=== PATIENT | male | born 1990 | race Caucasian/White ===

== ENCOUNTER 2023-03-01 18:30 | Emergency (ER) | payer BC, SELFPAY ==
[2023-03-01 18:34] VITALS: PULSE 100; RESP 16; TEMP 36.8; O2SAT 96; BMI 28.2
--- NOTE | 2023-03-01 18:48 | PC.NURSE ---
Patient reports contact lens stuck in right eye, no drainage at this time, sclera slightly red.
[2023-03-01] MEDS: FLUORESCEIN SODIUM 1 MG STRIP OP (18:50)
[2023-03-01] MEDS: TETRACAINE HCL 0.5% OP SOL 80 DROP/4 ML BOTTLE OP (18:51)
--- NOTE | 2023-03-01 19:35 | ED_ITS ---
HPI - Eye Problem General Chief complaint: Eye Problems Stated complaint: Foreign in EYE Time Seen by Provider: 03/01/23 18:35 Source: patient Mode of arrival: walk-in Limitations: no limitations History of Present Illness HPI Narrative: Patient fell asleep with his contact lens in and when he woke he had pain in his right eye. No loss of vision. He tried to remove the lens and could not. he soaked the eye with refresh solution - still could not remove the lens. he believes that the contact lens is still on the right eye and is concerned about eye damage or infection. He has no local PCP and he uses [facility] for his contacts. Related Data Allergies Allergy/AdvReac Type Severity Reaction Status Date / Time No Known Drug Allergies Allergy Verified 03/01/23 18:37 PFSH PFS Social History Smoking status: Never smoker Exam Narrative Exam Narrative: General: The patient appears well and in no apparent distress. Patient is resting comfortably on cart. Skin: Warm, dry, no pallor noted. Head: Normocephalic, atraumatic Neck: Supple, trachea mid-line, no tenderness, no lymphadenopathy Eye: Normal extraocular motion without associated pain. Pupils equal, round and reactive to light. Conjunctival injection noted. No swelling of the upper/lower eyelid. Patient's upper eyelid was everted - no evidence of foreign body. I am unable to see a contact lens on the eye, in the gutters or underneath the upper or lower eyelid. The patient had ALCAINE/TETRACAINE applied to the right eye with fluorescein dye instilled afterward. Exam with Wood's lamp showed no uptake at the cornea and no outline to suggest lens still in place. No evidence of hyphema, dendritic lesion, corneal ulcerations, preseptal cellulitis or orbital cellulitis. Ears, Nose, Mouth, and Throat: oral mucosa is moist Respiratory: Patient is in no distress Neurological: A&O x4, normal speech Psychiatric: Cooperative and interactive. Constitutional Vital Signs, click to edit/add: Last Vital Signs Temp 98.3 F 03/01/23 18:34 Pulse 80 03/01/23 19:47 Resp 15 03/01/23 19:47 BP 140/88 03/01/23 19:47 Pulse Ox 98 03/01/23 19:47 O2 Del Method Room Air 03/01/23 19:47 Course Vital Signs Vital signs: Vital Signs Temperature 98.3 F 03/01/23 18:34 Pulse Rate 100 H 03/01/23 18:34 Respiratory Rate 16 03/01/23 18:34 Pulse Oximetry 96 03/01/23 18:34 Oxygen Delivery Method Room Air 03/01/23 18:34 Temperature 98.3 F 03/01/23 18:34 Pulse Rate 80 03/01/23 19:47 Respiratory Rate 15 03/01/23 19:47 Blood Pressure 140/88 03/01/23 19:47 Pulse Oximetry 98 03/01/23 19:47 Oxygen Delivery Method Room Air 03/01/23 19:47 MDM - Eye Problem MDM Narrative Medical decision making narrative: I spoke with Dr Rm - ophtho communications marketing [place] [facility] [place]formed of the patient's case and lack of ophtho followup - concern about contact lens still being in place. He agreed to have the patient come to his office tomorrow at 830am to be seen - told me no need for antibiotics or steroids in the eye. Patient informed and is agreeable - will see Dr Rm tomorrow for follow up Discharge Plan Discharge Chief Complaint: Eye Problems Clinical Impression: Contact lens related conjunctivitis Patient Disposition: Home, Self-Care Time of Disposition Decision: 19:36 Condition: Good Mode of Transportation: Private Vehicle Instructions: Eye Lubricant (Into the eye), Eye Foreign Body (ED) Stand Alone Forms: Portal Instructions Referrals: Juan Daniel Gilman MD [Physician] - 03/02/23 8:30 am Discharge Date/Time: 03/01/23 19:49
[2023-03-01 19:47] VITALS: BP 140/88; PULSE 80; RESP 15; O2SAT 98
== END 2023-03-01 19:49 | disposition home or self-care (01) ==
PROVIDERS: Emergency Provider Emergency Medicine; PCP Family Medicine
DX: H10.89 Other conjunctivitis (principal)
CPT/HCPCS: 99283

== ENCOUNTER 2023-04-27 11:25 | Outpatient (OUT) | payer BC, SELFPAY ==
[2023-04-27 12:25] LABS: Basophils Absolute Auto 0.1 10^3/uL (0.0-0.1); Basophils Percent Auto 1.4 % (0.2-2.0); Eosinophils Absolute Auto 0.1 10^3/uL (0.0-0.7); Eosinophils Percent Auto 1.4 % (0.9-7.0); Hematocrit 42.3 % (42.0-54.0); Hemoglobin 13.7 g/dL (14.0-18.0); Immature Granulocytes Abs Auto 0.03 10^3/uL (0.00-0.03); Immature Granulocytes Pct Auto 0.3 % (0.0-0.5); Lymphocytes Absolute Auto 2.8 10^3/uL (1.2-3.8); Lymphocytes Percent Auto 29.8 % (20.5-60.0); Mean Corpuscular HGB Conc 32.4 g/dL (29.9-35.2); Mean Corpuscular Hemoglobin 28.8 pg (25.9-34.0); Mean Corpuscular Volume 89.1 fL (80.0-94.0); Mean Platelet Volume 9.3 fL (9.5-13.5); Monocytes Absolute Auto 0.7 10^3/uL (0.3-0.8); Monocytes Percent Auto 7.3 % (1.7-12.0); Neutrophils Absolute Auto 5.6 10^3/uL (1.4-6.5); Neutrophils Percent Auto 59.8 % (43.0-75.0); Platelet Count 360 10^3/uL (150-450); Red Blood Count 4.75 10^6/uL (4.70-6.10); Red Cell Distribution Width 13.8 % (11.0-15.0); White Blood Count 9.3 10^3/uL (4.0-11.0)
== END 2023-04-27 11:26 | disposition home or self-care (01) ==
LOC: LAB 11:28
PROVIDERS: PCP Family Medicine; Visit Provider Nurse Practitioner Family
DX: D64.9 Anemia, unspecified (principal); S36.892A Contusion of other intra-abdominal organs, initial encounter
CPT/HCPCS: 36415; 85025

== ENCOUNTER 2023-05-10 09:45 | Outpatient (OUT) | payer OTHER, SELFPAY ==
--- NOTE | 2023-05-10 09:47 | XR_ITS ---
The [address] [address] Patient Name: EDUARDA WILLIAMSON MRN: [id number] date: 1990 Sex: M Assigned Patient Location: RAD Current Patient Location: RAD Accession/Order Number: [id number] Exam Date: 05/10/2023 10:15 Report Date: 05/10/2023 14:29 At the request of: RKAAN VALENTIN Procedure: XR ankle RT min 3V PROCEDURE: XR ankle RT min 3V COMPARISON: None. HISTORY: Ankle Pain, 30 Foot Fall Trauma FINDINGS: BONES:No fracture, acute abnormality, or significant arthropathy. SOFT TISSUES:Negative. No visible soft tissue swelling. EFFUSION:None visible. OTHER: Negative. XR/XR ankle RT min 3V IMPRESSION: No acute fracture Electronically authenticated by: VINICIUS GARCIA Date: 05/10/2023 14:29
--- NOTE | 2023-05-10 09:47 | XR_ITS ---
The [address] [address] Patient Name: EDUARDA WILLIAMSON MRN: [id number] date: 1990 Sex: M Assigned Patient Location: RAD Current Patient Location: [facility] Accession/Order Number: [id number] Exam Date: 05/10/2023 10:15 Report Date: 05/10/2023 10:55 At the request of: RAKAN VALENTIN Procedure: XR hip FELIX EXAMINATION: XR hip FELIX HISTORY: Hip Pain, 30 Foot Fall Trauma COMPARISON: No relevant comparison available. FINDINGS: RIGHT FINDINGS: BONES: Normal. No significant arthropathy or acute abnormality. SOFT TISSUES: Negative. No visible soft tissue swelling. OTHER: Negative. LEFT FINDINGS: BONES: Normal. No significant arthropathy or acute abnormality. SOFT TISSUES: Negative. No visible soft tissue swelling. OTHER: Negative. XR/XR hip FELIX IMPRESSION: RIGHT CONCLUSION: No acute abnormality LEFT CONCLUSION: No acute abnormality Electronically authenticated by: VINICIUS GARCIA Date: 05/10/2023 10:55
--- OUTSIDE RECORDS SUMMARY | 2023-05-10 10:06 | XMS_ITS | CCD ---
Author Name Unknown Address [address] [place] [address] Organization [facility] Care Team Providers Care Power System Operator Name Role Phone BOBY SOMMERS Attending Unavailable DO Leonides Walker Emergency Provider [phone] MD Tito Whitney Primary Care Provider [phone] Unavailable Primary Care Provider Unavailabl e Leonides Walker Attending Unavailable Leonides Walker Admitting Unavailable Tito Whitney Primary Care Unavailable PROVIDER, UNKNOWN Admitting Unavailable PROVIDER, UNKNOWN Attending Unavailable PROVIDER, UNKNOWN Admitting Unavailable PROVIDER, UNKNOWN Attending Unavailable PROVIDER, UNKNOWN Admitting Unavailable CARMELA GUEVARA Referring Unavailable LAURA VICTORIA Attending Unavailable PROVIDER, UNKNOWN Admitting Unavailable CARMELA GUEVARA Attending Unavailable PROVIDER, UNKNOWN Attending Unavailable MARLEY PETERSON Referring Unavailable YING HOLT Admitting Unavailable ISMAEL, CARMELA Referring Unavailable CARMELA GUEVARA Attending Unavailable ISMAEL, CARMELA Admitting Unavailable PROVIDER, UNKNOWN Attending Unavailable NORMA GUEVARAENNE Admitting Unavailable PROVIDER, UNKNOWN Attending Unavailable ISMAEL CARMELA Admitting Unavailable PROVIDER, UNKNOWN Admitting Unavailable PROVIDER, UNKNOWN Attending Unavailable JILLIAN READ Referring Unavailable PROVIDER, UNKNOWN Admitting Unavailable PROVIDER, UNKNOWN Attending Unavailable MARLEY PETERSON Referring Unavailable PROVIDER, UNKNOWN Admitting Unavailable JARROD CHANDLER Attending Unavailable MARLEY PETERSON Referring Unavailable Medications Current Medications Medication Drug Class(es) Dates Sig (Normalized) Sig (Original) acetaminophen 325 mg oral tablet (5 sources) Start: 04-14-2023 End: 04-14-2023 acetaminophen (TYLENOL) tablet Start: 04-08-2023 End: 04-25-2023 take 1-2 tablets by mouth every six hours as needed acetaminophen (TYLENOL) 500 MG tablet Take 1-2 Tablets by mouth every 6 hours as needed for up to 14 days. 112 Tablet 0 04/11/2023 04/25/2023 Active albuterol 0.83 mg/ml inhalation solution (2 sources) beta2-Adrenergic Agonist Start: 04-14-2023 End: 04-14-2023 albuterol (PROVENTIL) (2.5 MG/3ML) 0.083% nebulizer solution Start: 04-09-2023 albuterol (PRO VENTIL) (2.5 MG/3ML) 0.083% nebulizer solution calcium chloride 0.0014 meq/ ml / potassium chloride 0.004 meq/ml / sodium chloride 0.103 meq/ml / sodium lactate 0.028 meq/ml injectable solution (3 sources) Start: 04-14-2023 lactated ringe rs iv infusion Start: 04-08-2023 End: 04-09-2023 lactated ringers iv infusion 0.4 ml enoxaparin sodium 100 mg/ml prefilled syringe (1 source) Low Molecular Weight Heparin Start: 04-09-2023 enoxaparin (LOVENOX) 40 MG/0.4ML injection 40 mg 2 ml fentaNYL 0.05 mg/ml injection (1 source) Opioid Agonist Start: 04-14-2023 End: 04-14-2023 fentaNYL (SUBLIMAZE) 100 MCG/2ML injection 1 ml naloxone hydrochloride 0.4 mg/ml injection (2 sources) Opioid Antagonist Start: 04-14-2023 naloxone (NA RCAN) 0.4 MG/ML injection polyethylene glycol 3350 65701 mg powder for oral solution (1 source) Osmotic Laxative Start: 04-09-2023 polyethylene glycol (MIRALAX) 17 g packet sennoSharp Edge Labss, assisted 8.6 mg oral tablet (4 sources) Start: 04-09-2023 End: 05-11-2023 take 1 tablet by mouth once daily senna (SENOKOT) 8.6 MG tablet Take 1 Tablet by mouth daily. To prevent/treat constipation while taking opioids. Hold if having bowel movements. 30 Tablet 0 04/11/2023 05/11/2023 Active Completed/Discontinued Medications Medication Drug Class(es) Dates Sig (Normalized) Sig (Original) acetaminophen 325 mg / oxyCODONE hydrochloride 5 mg oral tablet (2 sources) Opioid Agonist Start: 04-14-2023 End: 04-14-2023 oxyCODONE-acetamin ophen (PERCOCET) 5-325 mg per tablet Start: 04-14-2023 End: 04-21-2023 take 1 tablet by mouth every six hours as needed for pain oxyCODONE-acetaminophen (Percocet) 5-325 mg per tablet Indications: Post-op pain Take 1 Tablet by mouth every 6 hours as needed for Pain for up to 7 days. 28 Tablet 0 04/14/2023 04/21/2023 Active 1 ml HYDROmorphone hydrochloride 0.2 mg/ml prefilled syringe (1 source) Opioid Agonist Start: 04-09-2023 End: 04-09-2023 HYDROmorphone (DILAUDID) 0.2 MG/ML injection 0.4 mg Start: 04-09-2023 End: 04-09-2023 HYDROmorphone (DILAUDID) 0.2 MG/ML injection 0.4 mg iohexol (OMNIPAQUE) 350 MG/ML injection (1 source) Start: 04-08-2023 End: 04-08-2023 iohexol (OMNIPAQUE) 350 MG/ML injection oxyCODONE hydrochloride 5 mg oral tablet (4 sources) Opioid Agonist Start: 04-11-2023 End: 04-14-2023 take 1 tablet by mouth every six hours as needed oxyCODONE 5 MG immediate release tablet Indications: Closed fracture of shaft of left radius, unspecified fracture morphology, initial encounter Take 1 Tablet by mouth every 6 hours as needed for up to 3 days. 12 Tablet 0 04/11/2023 04/14/2023 Discontinued Start: 04-10-2023 oxyCODONE imme diate release tablet povidone-iodine 100 mg/ml medicated pad (1 source) Antiseptic Start: 04-14-2023 End: 04-14-2023 povidone-iodine 10 % swab Start: 04-14-2023 End: 04-14-2023 povidone-iodine 10 % swab Problems Problem Classification Problem Date Documented Date Episodic/Chronic Cardiac dysrhythmias (1 source) Tachycardia; Translations: [Tachycardia, unspecified] 04-10-2023 Episodic Crushing injury or internal injury (13 sources) Injury of superior mesenteric artery; Translations: [Unspecified injury of superior mesenteric artery, initial encounter] Onset: 04-08-2023 04-08-2023 Episodic E Codes: Fall (6 sources) Fall; Translations: [Unspecified fall, initial encounter] Onset: 04-10-2023 04-08-2023 Episodic Fracture of upper limb (9 sources) Fracture of left radius; Translations: [Unspecified fracture of left forearm, initial encounter for closed fracture] Onset: 04-08-2023 04-08-2023 Episodic Other aftercare (1 source) Encounter for other specified surgical aftercare; Translations: [Encounter for other specified surgical aftercare] Onset: 04-27-2023 Episodic Other nervous system disorders (1 source) Postoperative pain ; Translations: [Other acute postprocedural pain] 04-14-2023 Episodic Other screening for suspected conditions (not mental disorders or infectious disease) (1 source) Electrocardiogram abnormal; Translations: [Abnormal electrocardiogram [ECG] [EKG]] 04-10-2023 Episodic Pleurisy; pneumothorax; pulmonary collapse (1 source) Pneumothorax; Translations: [Pneumothorax, unspecified] 04-08-2023 Episodic Unclassified (1 source) Displaced transverse fracture of shaft of left radius, initial encounter for closed fracture; Translations: [Displaced transverse fracture of shaft of left radius, initial encounter for closed fracture] Onset: 04-08-2023 Results Test Name Value Interpretation Reference Range Facility Progress Noteson 04-29-2023 [employer] Build[employer] Laminator Authentication Interface Message Text Patient was identified by name and date of . Kristi Mercedes RN, RN Patient at risk for falls:No Falls Risk protocol implemented: No Normal [facility] [employer] Laminator Authentication Interface Message Text I am seeing Mr Williamson today for routine trauma follow up. He was admitted on 04/08 after a fall from a ladder. Injuries included left radius fracture, small right apical pneumothorax and mesenteric hematoma. [facility] His injuries were treated non-operatively. He was discharged on 04/11. He is doing well. He denies any fevers or chills. No pain. He is tolerating PO well. He is having normal bowel function without blood. There were no vitals filed for this visit. NAD, comfortable Abd soft, nontender 32 year old male 3 weeks s/p fall with mesenteric hematoma. He is doing well following discharge. No activity restrictions from our standpoint, ortho to manage left radius fracture Can return to work when cleared by occupational medicine Labs from [place] reviewed, very mild anemia,. Improved from last lab work here No further follow up with trauma is needed Tyshawn Ibarra MD Normal [facility] Progress Noteson 04-28-2023 [employer] Authentication Interface Message Text [facility] Post-operative Notes Surgery(s) performed: Left radial shaft fracture DOS:04/14/2023 Post Op 2weeks Subjective: Well minimal pain or need to take narcotic medications Some n/t to thumb and ulnar 2 digits Objective: LEft forearm Wound: volar wound healing well Edema: resolving Motion: full flexion/extension Limited forearm supination 3/5 FPL; 5/5 FDP/FDS Sensory: index and middle intact to LT; decreased to thumb Radiograph findings: Interval reduction and fixation radial shaft , reduced DRUJ No sig interval healing but intact hardware without loosening Assessment:(Z48.89) Aftercare following surgery (primary encounter diagnosis) Plan: XR FOREARM LEFT 2 VIEWS, OCCUP [id number]/TREAT SERVICE RQST, EXTERNAL - start ROM and volar resting splint SERVICE REQUEST FOR CARE OUTSIDE THE [employer] [facility]-14 light duty x 12 weeks post op X-rays on follow up: yes, L forearm Follow up: 6 weeks Carmela Guevara MD Hand and Upper Extremity Surgeon 04/28/23 Normal [facility] Progress Noteson 04-27-2023 [employer] Authentication Interface Message Text Patient was identified by name and date of .Removed left short arm splint without incident patient sent to x-ray. Normal [facility] XR FOREARM LEFT 2 VIEWSon XR FOREARM LEFT 2 VIEWS EXAMINATION: XR FOREARM LEFT 2 VIEWSPRO/LT 04/27/2023 02:16 PM CLINICAL HISTORY: fx ASSOCIATED DIAGNOSIS: Aftercare following surgery ORDERING PROVIDER: JILLIAN READ TECHNBEE NOTE: COMPARISON: XR FOREARM LEFT 2 VIEWS 04/10/2023, 12:10 AM FINDINGS: There is orthopedic hardware -- screw plate device and screws -- providing internal fixation for previously noted mid radial shaft fracture. No bony bridging The overall alignment appears essentially anatomic given technical differences. IMPRESSION: [Status post ORIF with alignment grossly maintained and hardware intact.] Left forearm MACRO: None Normal [facility] Anesthesia Acute Painon 02- [employer] Authentication Interface Message Text Teaching Physician Note: I saw and evaluated the patient. I personally obtained the ortez and critical portions of the history and physical exam. I reviewed the resident's documentation and discussed the patient with the resident. I agree with the resident's medical decision making as documented in the resident's note. Laura Solano MD Acute Pain Note and Procedure Patient: Eduarda Williamson, male, 32 year old Consult Date: 04/14/2023 ; Consult Time: 3:58 PM My advice has been requested by: Patient is: outpatient Reason for Consultation/Chief Complaint: Acute Pain History of Present Illness: 32 year old male with past medical history as noted below, s/p Left Radius ORIF complaining of acute post-operative pain not controlled by IV narcotics requiring additional post-operative pain control. Pain is sharp, constant and located in the LUE. Pain Score: 10/10 Previous Pain Interventions/Medications: IV narcotics Review of Systems: Pulmonary: Traumatic PTX since resolved per last imaging Cardio-vascular: Negative Musculoskeletal: LUE motor and sensory grossly intact. Endocrine: Negative Hematologic: Negative There is no previous medical history on file. No past medical history on file. There is no previous surgical history on file. No family history on file. Social History Socioeconomic History Marital status: Single has no history on file for drug use. Current Facility-Administered Medications Medication Dose Route Frequency Last Rate Last Admin lactated ringers iv infusion Intravenous Continuous fentaNYL (SUBLIMAZE) 100 MCG/2ML injection 50 mcg Intravenous Push PACU once PRN oxyCODONE-acetaminophen (PERCOCET) 5-325 mg per tablet 1 Tablet Oral PRN acetaminophen (TYLENOL) tablet 650 mg Oral PACU once PRN naloxone (NARCAN) 0.4 MG/ML injection 0.4 mg Intravenous Push PRN albuterol (PROVENTIL) (2.5 MG/3ML) 0.083% nebulizer solution 2.5 mg Nebulization PACU once PRN naloxone (NARCAN) 0.4 MG/ML injection 0.4 mg Intravenous Push PRN lactated ringers iv infusion Intravenous Continuous Vital Signs: See PACU Vitals Physical Examination: Pulmonary: Chest clear to auscultation bilaterally Cardiovascular: RRR with S1S2 and No murmurs, gallops, or rubs Neurologic: Awake, alert, oriented, No motor deficits and Sensation grossly intact Extremities: LUE in dressing otherwise no gross or obvious abnormalities Laboratory Tests: CBC (last 3 years, up to 5 values) (Last 5 results in the past 3 years) WBC RBC Hgb Hct MCV RDW Plt 04/11/23 0018 8.9 3.90 11.3 33.8 87 14.0 201 04/10/23 0211 9.8 4.00 11.8 35.3 88 13.9 185 04/09/23 1121 10.8 4.31 12.5 37.7 87 14.1 198 04/09/23 0521 11.6 4.37 12.7 38.2 88 14.3 208 04/08/23 1712 22.5 4.93 14.1 43.3 88 14.2 245 Basic Metabolic Panel Na K Cl CO2 Gap Glu BUN Cr Ca 04/10/23 0211 137 Comment: Note updated reference ranges. 4.1 Comment: Note updated reference ranges. Note updated reference ranges. 102 Comment: Note updated reference ranges. 26 Comment: Note updated reference ranges. 13 87 13 Comment: Note updated reference ranges. 0.85 Comment: Note updated reference ranges. 8.9 Comment: Note updated reference ranges. 04/09/23 0521 139 Comment: Note updated reference ranges. 4.3 Comment: Note updated reference ranges. Note updated reference ranges. 106 Comment: Note updated reference ranges. 25 Comment: Note updated reference ranges. 12 103 14 Comment: Note updated reference ranges. 0.82 Comment: Note updated reference ranges. 8.8 Comment: Note updated reference ranges. 04/08/23 1712 141 Comment: Note updated reference ranges. 3.9 Comment: Note updated reference ranges. Note updated reference ranges. 106 Comment: Note updated reference ranges. 26 Comment: Note updated reference ranges. 13 106 14 Comment: Note updated reference ranges. 0.86 Comment: Note updated reference ranges. 9.4 Comment: Note updated reference ranges. INR (no units) Date Value 04/08/2023 0.94 Impression: 32 year old male with past medical history as noted above, s/p Left radius ORIF complaining of acute post-operative pain not controlled by IV narcotics requiring additional post-operative pain control. Plan/Recommendation: Left brachial nerve block at the level of the Axilla with ultrasound guidance Acute pain Keyshawn Lopez MD Manager [employer], PGY-4 Normal [facility] [employer] [facility] Anesthesia Postprocedure Rajni monsivais 04-14-2023 [employer] Laminator Authentication Interface Message Text Anesthesia Postoperative Assessment: Vital Signs (@1625): BP 129/82 (BP Location: right arm) Pulse 88 Temp 36.5 ???C (97.7 ???F) (Temporal) Resp 16 Ht 6' 2 (1.88 m) Wt 229 lb (103.9 kg) SpO2 100% BMI 29.40 kg/m??? Anesthesia Post Evaluation Level of consciousness: awake Post-procedure exam normal. Body temperature, hydration status, PONV and pain evaluated and addressed. Pain management: adequate Hydration status: normal PONV:No nausea/vomiting reported Cardiopulmonary status stable Respiratory status: acceptable Cardiovascular status: acceptable ANESTHESIA NOTABLE EVENTS: No notable events documented. Normal [facility] Anesthesia Transfer Of Careo n 04-14-2023 [employer] Laminator Authentication Interface Message Text Patient taken to PACU. Patient was comfortable and stable on arrival. Anesthesia Transfer of Care Note Past Medical History: No past medical history on file. Sleep Apnea/Positive STOP-BANG: Yes Problem List: Patient Active Problem List: Mesenteric hematoma, initial encounter [S36.892A] Mesenteric hematoma [S36.892A] Closed fracture of shaft of left radius [S52.302A] Fall from ladder [W11.XXXA] Past Surgical History: There is no previous surgical history on file. Allergies: Patient has no known allergies. Basic Operating Room Facts: Surgeon(s): Carmela Guevara MD Anesthesiologist: Laura Solano MD ITEM REPAIR MANAGER: Coreen Morris APRN-MODESTA Tram Inspector: Keyshawn Lopez MD REDUCTION, OPEN, RADIUS (Left: Arm Lower) Intraoperative Events: No acute event ASA: 2 EBL: Not documented Urine Not documented Lactated Ringers and NaCl 0.9%: Fluid Totals (Filter: LR and NaCl 0.9% Medications Shown) Medication Calculated Total Lactated Ringers 0 mL / 1 bag Cell Saver: Not documented Blood Volume Values: Blood Products None MTP Blood: MTP PRBC: Not documented MTP FFP: Not documented MTP PLT: Not documented MTP Cryo: Not documented MTP Whole Blood: Not documented Current Vasoactive Medications: {Vasoactive Medications: None Lines, Drains, Airways Peripheral IV Access: 04/14/23 1237 22 gauge Right Antecubital (Active) Site Assessment WNL;Dressing intact 04/14/23 1312 Infusion Status Port #1 Infusing;Patent 04/14/23 1312 Airway Adjunct: Nasal Trumpet 34 (Active) Airway Insertion Details [REMOVED] Advanced Airway: LMA;Cuffed #5 (Removed) 04/14/23 1317 Pre-Oxygenation/ Induction: Mask Rapid Sequence Induction?: Mask Ventilation: Blade Type: Blade Size: Visualization: Airway Type: LMA;Cuffed Airway Size: #5 Post Insertion Assessment: Confirmation: Equal bilateral breath sounds, CO2 confirmed # Attempts >1: Special Equipment: Present on Admission?: Previously Removed / Not Present: Removal Reason: Not Removed at Discharge: Removed 04/14/23 1521 Secured via: Taped 04/14/23 131 Site Assessment WNL 04/14/23 131 All non-working IVs have been removed: N/A Laboratory Data: CBC (last 3 years, up to 5 values) (Last 5 results in the past 3 years) WBC RBC Hgb Hct MCV RDW Plt 04/11/23 0018 8.9 3.90 11.3 33.8 87 14.0 201 04/10/23 0211 9.8 4.00 11.8 35.3 88 13.9 185 04/09/23 1121 10.8 4.31 12.5 37.7 87 14.1 198 04/09/23 0521 11.6 4.37 12.7 38.2 88 14.3 208 04/08/23 1712 22.5 4.93 14.1 43.3 88 14.2 245 Basic Metabolic Panel Na K Cl CO2 Gap Glu BUN Cr Ca 04/10/23 0211 137 Comment: Note updated reference ranges. 4.1 Comment: Note updated reference ranges. Note updated reference ranges. 102 Comment: Note updated reference ranges. 26 Comment: Note updated reference ranges. 13 87 13 Comment: Note updated reference ranges. 0.85 Comment: Note updated reference ranges. 8.9 Comment: Note updated reference ranges. 04/09/23 0521 139 Comment: Note updated reference ranges. 4.3 Comment: Note updated reference ranges. Note updated reference ranges. 106 Comment: Note updated reference ranges. 25 Comment: Note updated reference ranges. 12 103 14 Comment: Note updated reference ranges. 0.82 Comment: Note updated reference ranges. 8.8 Comment: Note updated reference ranges. 04/08/23 1712 141 Comment: Note updated reference ranges. 3.9 Comment: Note updated reference ranges. Note updated reference ranges. 106 Comment: Note updated reference ranges. 26 Comment: Note updated reference ranges. 13 106 14 Comment: Note updated reference ranges. 0.86 Comment: Note updated reference ranges. 9.4 Comment: Note updated reference ranges. Basic Metabolic Panel None INR (no units) Date Value 04/08/2023 0.94 No result for BNP LFT's (last 3 years, up to 5 values) T Prot Albumin D Bili T Bili Alk Phos ALT AST 04/08/232 6.6 4.3 0.08 0.4 68 70 49 Arterial Blood Gases None Hand off Completed: Yes 1. The patient was identified. 2. Pertinent medical history was relayed. 3. A brief discussion was had about any pertinent surgical/ procedural issues. 4. Intraoperative/ anesthetic management issue and concerns were discussed. 5. Plans for the early post-operative period relayed. 6. An opportunity for questions and acknowledgment of understanding of the report was received. Keyshawn Lopez MD Normal [facility] Blood Attestationon 04-14-19 [employer] Authentication Interface Message Text Blood Attestation: ATTESTATION OF INFORMED CONSENT FOR BLOOD: The transfusion of blood and/or blood components were discussed with the patient and/or legal franchise sales representative. The risks, benefits and alternatives were reviewed. Questions regarding blood transfusions were answered. The patient /or the patient's legal franchise sales representative agree with the plan for transfusion of blood and/or blood components. Normal [facility] Brief Operative Noteon 04-14 [employer] Authentication Interface Message Text Brief Operative Note BV OR 3 Eduarda Williamson 32 year old male Surgical Contact Serial Number: [id number] Preoperative Diagnosis: Pre-op Diagnosis * Closed displaced comminuted fracture of shaft of left radius, initial encounter [S52.352A] Postoperative Diagnosis: * Closed displaced comminuted fracture of shaft of left radius, initial encounter [S52.352A] Procedures: LEFT radial shaft open reduction internal fixation Surgeon(s): Surgeon(s): Carmela Guevara MD Staff: Scrub: Nathaly Gonzalez RN Research Food Technologist Nurse: Lesvia Knight RN; Sandy Yuen RN; Bang Rao RN Physician Powder Mill Operator: Jillian Read PA-C Commercial Helicopter Pilot: Boy Weir MD Anesthesia: LMA; local Anesthesiologist: Laura Solano MD ITEM REPAIR MANAGER: Coreen Morris APRN-CRNA Tram Inspector: Keyshawn Lopez MD Specimen(s): * No specimens in log * Estimated Blood Loss: less than 5 cc Lines/Drains: Peripheral IV Access: 04/14/23 1237 22 gauge Right Antecubital (Active) Site Assessment WNL;Dressing intact 04/14/23 1312 Infusion Status Port #1 Infusing;Patent 04/14/23 1312 Temporarily Retained Foreign Object: No Findings: See operative report Complications: None Status at end of surgery: Stable Activity: Continued light duty including no pushing/pulling/lifting over 5 lbs Splint to remain on until follow up Surgical wound class: No wound. Patient Class: Outpatient Surgery. Is this a patient scheduled as an outpatient that needs to be admitted as an inpatient? No Dr. Guevara was present in the OR for the critical portion of the procedure and procedure sign-out. Signed by Jillian Read PA-C 04/14/2023 3:32 PM Normal [facility] OP Noteon 04-14-2023 [employer] Authentication Interface Message Text Eduarda Williamson [id number] 04/14/2023 Date of Surgery: 04/14/2023 PREOPERATIVE DIAGNOSIS: leftforearm radial shaft fracture POSTOPERATIVE DIAGNOSIS: Same. PROCEDURE:LEFT FOREARM open treatment radial shaft fracture with internal fixation Use and interpretation of operating fluoroscopy: Yes ATTENDING SURGEON: Carmela Guevara M.D. STAFF: Scrub: Nathaly Gonzalez RN Research Food Technologist Nurse: Lesvia Knight RN; Sandy Yuen RN; Bang Rao RN Physician Powder Mill Operator: Jillian Read PA-C Commercial Helicopter Pilot: Boy Weir MD ANESTHESIA: Consult IV FLUIDS AND URINE: See anesthesia. ESTIMATED BLOOD LOSS: 1 mL. DRAINS: None. SPECIMENS: None. COMPLICATIONS: None. IMPLANTS: Implant Name Type Inv. Item Serial No. Gas Meter Installer Lot No. LRB No. Used Action PLATE 9 HOLE FOREARM [id number] - [id number] PLATE 9 HOLE FOREARM [id number] Nanette Left 1 Implanted 3.5 X 16 SCREW [id number] - [id number] Screw 3.5 X 16 SCREW [id number] Nanette Left 6 Implanted INDICATIONS: Patient suffered a displaced both bone forearm fracture and was evaluated in our ED. Closed reduction and splinting was performed. Due to the fracture displacement and instability, surgery was recommended. Both options of non operative and operative management were discussed. All risks and benefits of operative fixation which include but are not limited to bleeding, infection, stiffness, loss of motion, neurovascular injury were reviewed with the patient as well as expected course of recovery. All questions were answered prior to obtaining informed consent. DESCRIPTION OF PROCEDURE: Patient was seen and identified in the PreOperative area, consent reviewed, procedure confirmed and operative site marked. The patient was brought to the operating room and remained supine on the operative cart. The patient had the anesthesia placed by the anesthesiologist. The prep verification and incision time-outs were performed to confirm that this was the correct patient, site, side and location. The patient had SCDs in place on the lower extremities. The patient did receive antibiotics prior to the incision and was redosed during the procedure as needed at indicated intervals. Limb was exsanguinated with an esmarch and tourniquet inflated to 250mmHg. Modified volar Herny approach was undertaken through FCR sheath. The FCR was retracted ulnarly and proximally the interval between FCR And Brachioradialis was undertaken. Radial artery was identified and protected throughout the case. Arterial branches were cauterized where appropriate. FPL muscle belly was identified and elevated off the radial shaft for plating purposes. The pronator teres insertion was also sharply released off the radial shaft since It was overlying our fracture site. The fracture was identified and all interposed soft tissue was removed. Reduction of our radial shaft was achieved and a 9 hole volar plate was placed on the volar surface. Cortical screws were inserted proximal and distal to our fracture site to secure our plate and reduction. Xrays were taken to confirm excellent anatomic fixation and plate placement. Additional 3.5mm cortical screws were drilled and inserted proximal and distal to the fracture for a total of 6 cortices of fixation. Final orthogonal radiographs were taken to confirm reduction and position of hardware, which were excellent. Flurosocpic AP/LAteral images of the DRUJ were also taken to confirm anatomic alignment. Clinical assessment of the DRUJ and forearm range of motion was performed. The DRUJ was noted to be stable. No further fixation was performed. Tourniquet was deflated- excellent hemostasis was achieved. Wounds were copiously irrigated. Wound was closed in layers with vicryl for dermis and a running monocryl for skin. Steristrips were applied to skin. Dry sterile dressing and a splint were applied. The patient was transferred to the recovery room in stable condition. There were no intraoperative complications. I was present AND scrubbed in the OR for all critical portions of the case. Carmela Guevara MD Normal The [employer] [facility] US GUIDANCE NEEDLE PLACEMENT on 04-14-2023 US GUIDANCE NEEDLE PLACEMENT Narrative AND Impression EXAMINATION: US GUIDANCE NEEDLE PLACEMENT CLINICAL HISTORY: peripheral nerve block Left brachial plexus nerve block, axillary approach IMPRESSION: : Technical services were performed by the department of Anesthesia. Please see the Procedure note for interpretation. Please refer to the patient's chart for the results of the procedure and ultrasound. Normal [facility] [employer] [facility] US Guidance for placement of needle in Unspecified body regionon 04-14-2023 : Technical services were performed by the department of Anesthesia. Please see the Procedure note for interpretation. Please refer to the patient's chart for the results of the procedure and ultrasound. [facility] Narrative & Impressi on EXAMINATION: US GUIDANCE NEEDLE PLACEMENT CLINICAL HISTORY: peripheral nerve block Left brachial plexus nerve block, axillary [facility] Study observation (narrative) [facility] US Guidance for placement of needle in Unspecified body regionOrdered By: Keyshawn Lopez on 04-14-2023 [employer] Work Phone: Anesthesia Preprocedure Eval uationon 04-13-2023 [employer] Authentication Interface Message Text ASA: 2 No history of anesthetic complications PSE status: Had PSE NPO status: Greater than 8 hours Past Medical History and Review of Systems (Full ROS completed in PSE) Pulmonary - negative ROS (-) sleep apnea Dental Endo - negative ROS Neuro/Psych Cardiovascular - negative ROS (+) Surgical risk: low; Cardiac condition: no apparent (-) exercise intolerance ECG reviewed Comment: ECG Sinus tachycardia 04/08 (post trauma) GI/Hepatic/Renal (-) no GERD Comment: Mesenteric hematoma Heme/Other Other ROS: Admitted 04/08-04/11 for fall (discharge summary below): 32 year old male with no significant PMHx brought in [facility] from [facility]. 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 CTA redemonstrates the focal hematoma in the RLQ with no evidence of active extravasation. No PTX on imaging. Mild increase in the amount of hemoperitoneum which abuts loops of lbowel. Admitted to trauma [facility] for serial abdominal exams. LUE splinted by ortho. Physical Exam Airway Mallampati: II TM distance: Adequate Micrognathia: Not present Jaw opening: Adequate Neck flexion: Adequate Dental PE (+) intact Pulmonary - pulmonary exam normal Cardiovascular - cardiovascular exam normal Neuro - neurological exam normal Plan Anesthesia plan: general; (LMA) Anesthesia risks / alternatives discussed pre-op Questions answered / anesthesia plan accepted Past medical history, surgical history, allergies, and medications reviewed. Pertinent laboratory tests, EKG, imaging, and consults reviewed and I have personally seen and evaluated the patient, repeating ortez portions of the history and physical examination. Attestation: Anesthesia options were discussed with the patient and/or legal franchise sales representative. The risks, benefits and alternatives were reviewed. Questions regarding anesthesia were answered. Patient and/or legal franchise sales representative knows such anesthetics and procedures may be performed by Resident physicians, Certified Anesthesiologist Assistants, or Certified Nurse Anesthetists under the supervision of a physician. The patient /or the patient's legal franchise sales representative agree with the plan for anesthesia. Normal The [facility] CBC panel Auto (Bld)on 04-11 Erythrocyte distribution width (RBC) [Ratio] 14.0 % 11.5 - 14.5 % [facility] Hematocrit (Bld) [Volume fraction] 33.8 % Low 41.0 - 53.0 % [facility] Hemoglobin (Bld) [Mass/Vol] 11.3 g/dL Low 13.9 - 16.3 g/dL [facility] Interpretation and review of laboratory results Abnormal [facility] MCH (RBC) [Entitic mass] 29.0 pg 26.0 - 34.0 pg [facility] MCHC (RBC) [Mass/Vol] 33.5 g/dL 32.0 - 35.9 g/dL [facility] MCV (RBC) [Entitic vol] 87 fL 80 - 100 fL [facility] Platelet mean volume (Bld) [Entitic vol] 7.2 fL Low 7.5 - 11.2 fL [facility] Platelets (Bld) [#/Vol] 201 10*3/uL 150 - 400 K/uL [facility] RBC (Bld) [#/Vol] 3.90 10*6/uL Low [facility] WBC (Bld) [#/Vol] 8.9 10*3/uL 4.5 - 11.5 K/uL [facility] COMPLETE BLOOD COUNTon 04-11 Erythrocyte distribution width (RBC) [Ratio] 14.0 % Normal 11.5-14.5 [facility] Comment on above: Performed By: #### L ACT #### [facility] [address] [place] [address], Hematocrit (Bld) [Volume fraction] 33.8 % Low 41.0-53.0 [facility] Comment on above: Performed By: #### L ACT #### [facility] [address] [place] [address], Hemoglobin (Bld) [Mass/Vol] 11.3 g/dL Low 13.9-16.3 [facility] Comment on above: Performed By: #### L ACT #### [facility] [address] [place] [address], MCH (RBC) [Entitic mass] 29.0 pg Normal 26.0-34.0 [facility] Comment on above: Performed By: #### L ACT #### [facility] [address] [place] [address], MCHC (RBC) [Mass/Vol] 33.5 g/dL Normal 32.0-35.9 [facility] Comment on above: Performed By: #### L ACT #### S PATHOLOG[facility] LABORATORY [address] [place] [address], MCV (RBC) [Entitic vol] 87 fL Normal 80-100 [facility] Comment on above: Performed By: #### L ACT #### S PATHOLOG[facility] LABORATORY [address], [place], Platelet mean volume (Bld) [Entitic vol] 7.2 fL Low 7.5-11.2 [facility] [employer] [facility] Comment on above: Performed By: #### L ACT #### [facility] [address], [place], Platelets (Bld) [#/Vol] 201 10*3/uL Normal 150-[address] [facility] Comment on above: Performed By: #### L ACT #### [facility] [address], [place], RBC (Bld) [#/Vol] 3.90 10*6/uL Low 4.50-5.[address] [facility] Comment on above: Performed By: #### L ACT #### [facility] [address], [place], WBC (Bld) [#/Vol] 8.9 10*3/uL Normal 4.5-11.[address] [facility] Comment on above: Performed By: #### L ACT #### [facility] [address], [place], Care Plan Noteon 04-11-2023 [employer] Authentication Interface Message Text Problem: Routine Care: Goal: Patient care will be managed and maintained throughout hospital stay per unit specific routine care procedure Outcome: Adequate for Discharge Problem: Impaired Skin Integrity: Goal: Acheive wound healing without signs and symptoms of infection Outcome: Adequate for Discharge Problem: VTE Prophylaxis: Goal: Will be free of DVT Outcome: Adequate for Discharge Problem: Altered Neurological Status: Goal: Optimal neurological status will be maintained or regained Outcome: Adequate for Discharge Problem: Acute Pain: Goal: Ability to identify pain intensity on a pain scale and rate it consistently will be achieved and maintained Outcome: Adequate for Discharge Goal: Understanding of proper administration and use of medicines will be achieved Outcome: Adequate for Discharge Goal: Acceptable level of pain which allows the patient to achieve functional outcome goals Outcome: Adequate for Discharge Problem: Safety: Goal: Patient will remain free of falls during hospital stay Outcome: Adequate for Discharge Goal: Free from injury during hospitalization Outcome: Adequate for Discharge Problem: Discharge Planning: Goal: Discharge needs of the adult patient will be met Outcome: Adequate for Discharge Normal [facility] [employer] [facility] MAGNESIUMon 04-11-2023 Magnesium [Mass/Vol] 2.0 mg/dL Normal 1.9-2.[address] [facility] Comment on above: Result Comment: Note updated reference ranges. Performed By: #### P HOS, MG #### [facility] [address], [place], Magnesium [Mass/Vol] 2.0 mg/dL 1.9 - 2 .7 mg/dL [facility] Comment on above: Note updated referen ce ranges. No Panel Informationon 04-11 Interpretation and review of laboratory results Normal [facility] PHOSPHORUSon 04-11-2023 Phosphate [Mass/Vol] 4.5 mg/dL Normal 2.5-5.[address] [facility] Comment on above: Result Comment: Note updated reference ranges. Performed By: #### P HOS, MG #### [facility] [address], [place], Phosphate [Mass/Vol] 4.5 mg/dL 2.5 - 5 .0 mg/dL [facility] Comment on above: Note updated referen ce ranges. Progress Noteson 04-11-2023 [employer] Authentication Interface Message Text ---- GENERAL INFORMATION --- TRAUMA FLOOR - STAFF NOTE Patient Name: Eduarda Williamson Admission Date: 04/08/2023 Patient seen and examined on 04/11/23 -- INTERVAL HISTORY/EVENTS Background: Eduarda Williamson is a 32 year old male with no significant PMHx brought in by [facility]. 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 -LOC -headstrike -AC/AP. [facility] imaging demonstrated a small R PTX, SMA artery dissection with active hemorrhage and L forearm fracture and was transferred to [facility] for further care. 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 CTA redemonstrates the focal hematoma in the RLQ with no evidence of active extravasation. No PTX on imaging. Mild increase in the amount of hemoperitoneum which abuts loops of lbowel. Admitted to trauma [facility] for serial abdominal exams. LUE splinted by ortho. Hospital Course: 04/08/2023: Fall from ht. Tx'd to [facility] from [facility] for serial abdominal exams and orthopedic consultation. 04/09: Abdominal exams benign. H/H stable. Admitted to Trauma [facility]. 24 Hour Events: This is my first time meeting this patient. No acute overnight events. Pt endorsing +flatus and tolerating clear liquid diet. Pain is stable, endorsing mild, intermittent abdominal tenderness that continues to improve since admit. Also endorsing R thigh pain- on exam, motor and sensation intact with no obvious deformity. Labs Reviewed: BMP stable, no leukocytosis, mild downtrend H/H 11.3 (11.8) Vital Signs reviewed. Afebrile, Not tachycardic, normotensive, Sats 94-96% on room air Intake/Output PO: 1350ml UOP: +3x Stool: 3x, Last BM on 04/10 PHYSICAL EXAM Vital Signs: Vital sign ranges over the past 24 hours (retrieved 04/11/2023 at 6:24 AM): Tmax (24 hours): 98.5 ???F (36.9 ???C) Pulse Av.8 Min: 76 Max: 98 Systolic (24hrs), Av , Min:129 , Max:147 Diastolic (24hrs), Av, Min:60, Max:77 MAP (mmHg) Av.8 mmHg Min: 78 mmHg Max: 95 mmHg Resp Av.2 Min: 15 Max: 20 SpO2 Av.2 % Min: 94 % Max: 96 % PHYSICAL EXAM GENERAL: NAD lying in bed, pleasant and conversant NEURO: GCS 15, no focal neurologic deficits. HEENT: Normocephalic CARDIOVASCULAR: RRR, No MRG PULMONARY: CTAB on RA, unlabored respirations ABDOMINAL: S/ND/NT EXTREMITIES: No edema, HENNING. R thigh mildy TTP. Splint LUE, unable to assess radial pulse, cap refill <3 seconds, MSPs intact. SKIN: [facility] RESULTS (LAST 24 HOURS) CBC/PT/INR WBC RBC Hgb Hct MCV RDW Plt PT aPTT INR 04/11/2317 8.9 3.90 11.3 33.8 87 14.0 201 Basic Metabolic Panel Na K Cl CO2 Gap Glu BUN Cr Ca Mg PO4 04/11/238 4.5 Comment: Note updated reference ranges. 04/11/2317 2.0 Comment: Note updated reference ranges. Fingerstick Glucose (last 72 hours) None IMAGING RESULTS (PERSONALLY REVIEWED) XR L Forearm- Post splint image: IMPRESSION: Acute, comminuted, minimally displaced fracture of the mid radial diaphysis. No radiopaque foreign body identified. All admit imaging and follow up imaging reviewed. ----- ASSESSMENT AND PLAN -------- Diagnoses: 1. S/p Fall from height, ~30ft (ladder) 04/08/2023 2. Traumatic mesenteric hematoma 3. Left radial shaft fracture 4. Small R apical pneumothorax 5. Acute pain due to trauma No past medical history on file. Incidental Findings: None on imaging, reviewed 04/10 KO. Plan: Neurologic: Acute pain d/t trauma. Pain well controlled. - Continue Tylenol 1000mg q6h scheduled - Wean Oxycodone to 2.5-5 mg q4h prn moderate-severe pain Cardiovascular: HR/BP stable -Continue VS per unit protocol Respiratory: Tiny R apical PTX on FT imaging.unlabored on RA. 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 No bowel injury/active extravasation. Serial abdominal exams stable. Passing flatus, tolerating clears - Advance to regular diet - Continue bowel regimen of senna, miralax, prn dulcolax Renal/Electrolytes: BMP WNL. Voiding spontaneously - No need for IVF - Daily BMP no longer indicated, obtain PRN Heme: Traumatic mesenteric hematoma. H/H stable. -VS per unit protocol - No indication for transfusion -CBC in am ID: - No indication for abx Endocrine: - No glycemic issues MSK: L radial fracture (Ortho- Hand, STS, OR as outpatient. R thigh pain- no injury on imaging. - PT/OT consulted, recs home- signed off (more content not included)... Normal [facility] [employer] [facility] BASIC METABOLIC PANELon 04-01-2023 Anion gap [Moles/Vol] 13 mmol/L Normal 10-20 [facility] [employer] [facility] Comment on above: Performed By: #### L ACT #### [facility] [address] [place] [address], Calcium [Mass/Vol] 8.9 mg/dL Normal 8.6-10.3 [facility] [employer] [facility] Comment on above: Result Comment: Note updated reference ranges. Performed By: #### L ACT #### [facility] [address], [place], Chloride [Moles/Vol] 102 mmol/L Normal 98-107 [facility] [employer] [facility] Comment on above: Result Comment: Note updated reference ranges. Performed By: #### L ACT #### [facility] [address] [place] [address], CO2 [Moles/Vol] 26 mmol/L Normal 21-31 [facility] Comment on above: Result Comment: Note updated reference ranges. Performed By: #### L ACT #### [facility] [address] [place] [address], Creatinine [Mass/Vol] 0.85 mg/dL Normal 0.70-1.30 [facility] Comment on above: Result Comment: Note updated reference ranges. Performed By: #### L ACT #### [facility] [address] [place] [address], ESTIMATED GFR (CKD-EPI) 120 mL/min/1.73sqm Normal >=[address] [facility] Comment on above: Result Comment: 2020 CKD EPI Equation using Creatinine without Race Comment: Estimated glomerular filtration rate (eGFR) is calculated without a race coefficient. Values should be interpreted in the context of the patient's full clinical presentation. Reference: 1. Atif C, Frida M, Navdeep POWERS, et al.. A Unifying Approach for GFR Estimation: Recommendations of the NKF-ASN Task Force on Reassessing the Inclusion of Race in Diagnosing Kidney Disease. [place] Journal of Kidney Diseases 202;79(2):268-88.e1. 2. N Engl J Med 1 Vol. 385 Issue 19 Pages 7668-5781 Performed By: #### L ACT #### [facility] [address] [place] [address], Glucose [Mass/Vol] 87 mg/dL Normal 74-[address] [facility] Comment on above: Performed By: #### L ACT #### [facility] [address] [place] [address], Potassium [Moles/Vol] 4.1 mmol/L Normal 3.5-5.[address] [facility] Comment on above: Result Comment: Note updated reference ranges. Note updated reference ranges. Performed By: #### L ACT #### [facility] [address] [place] [address], Sodium [Moles/Vol] 137 mmol/L Normal 136-[address] [facility] Comment on above: Result Comment: Note updated reference ranges. Performed By: #### L ACT #### [facility] [address], [place], Urea nitrogen [Mass/Vol] 13 mg/dL Normal 7-[address] [facility] Comment on above: Result Comment: Note updated reference ranges. Performed By: #### L ACT #### [facility] [address], [place], Basic metabolic 2000 panelon 04-10-2023 Anion gap [Moles/Vol] 13 mmol/L 10 - 20 [facility] Calcium [Mass/Vol] 8.9 mg/dL 8.6 - 10. 3 mg/dL [facility] Comment on above: Note updated referen ce ranges. Chloride [Moles/Vol] 102 mmol/L 98 - 10 7 mmol/L [facility] Comment on above: Note updated referen ce ranges. CO2 [Moles/Vol] 26 mmol/L 21 - 31 mmol/L [facility] Comment on above: Note updated referen ce ranges. Creatinine [Mass/Vol] 0.85 mg/dL 0.70 - 1.30 mg/dL [facility] Comment on above: Note updated referen ce ranges. GFR/1.73 sq M.predicted CKD-EPI (S/P/Bld) [Vol rate/Area] 120 - PINF [facility] Comment on above: 2020 CKD EPI Equatio n using Creatinine without Race Comment: Estimated glomerular filtration rate (eGFR) is calculated without a race coefficient. Values should be interpreted in the context of the patient's full clinical presentation. Reference: 1. Atif C, Frida M, Navdeep POWERS, et al.. A Unifying Approach for GFR Estimation: Recommendations of the NKF-ASN Task Force on Reassessing the Inclusion of Race in Diagnosing Kidney Disease. [place] Journal of Kidney Diseases 2022;79(2):268-88.e1. 2. N Engl J Med 1 Vol. 385 Issue 19 Pages 2612-8754 Glucose [Mass/Vol] 87 mg/dL 74 - 109 mg/dL [facility] Potassium [Moles/Vol] 4.1 mmol/L 3.5 - 5.0 mmol/L [facility] Comment on above: Note updated referen ce ranges. Note updated reference ranges. Sodium [Moles/Vol] 137 mmol/L 136 - 145 mmol/L [facility] Comment on above: Note updated referen ce ranges. Urea nitrogen [Mass/Vol] 13 mg/dL 7 - 25 mg/dL [facility] Comment on above: Note updated referen ce ranges. CBC panel Auto (Bld)on 04-10 Erythrocyte distribution width (RBC) [Ratio] 13.9 % 11.5 - 14.5 % [facility] Hematoc[facility] (Bld) [Volume fraction] 35.3 % Low 41.0 - 53.0 % [facility] Hemoglobin (Bld) [Mass/Vol] 11.8 g/dL Low 13.9 - 16.3 g/dL [facility] Interpretation and review of laboratory results Abnormal [facility] MCH (RBC) [Entitic mass] 29.5 pg 26.0 - 34.0 pg [facility] MCHC (RBC) [Mass/Vol] 33.5 g/dL 32.0 - 35.9 g/dL [facility] MCV (RBC) [Entitic vol] 88 fL 80 - 100 fL [facility] Platelet mean volume (Bld) [Entitic vol] 7.8 fL 7.5 - 11.2 fL [facility] Platelets (Bld) [#/Vol] 185 10*3/uL 150 - 400 K/uL [facility] RBC (Bld) [#/Vol] 4.00 10*6/uL Low [facility] WBC (Bld) [#/Vol] 9.8 10*3/uL 4.5 - 11.5 K/uL [facility] COMPLETE BLOOD COUNTon 04-10 Erythrocyte distribution width (RBC) [Ratio] 13.9 % Normal 11.5-14.5 [facility] Comment on above: Performed By: #### C BC #### [facility] [address] [place] [address], Hematocrit (Bld) [Volume fraction] 35.3 % Low 41.0-53.0 [facility] Comment on above: Performed By: #### C BC #### [facility] [address] [place] [address], Hemoglobin (Bld) [Mass/Vol] 11.8 g/dL Low 13.9-16.3 [facility] Comment on above: Performed By: #### C BC #### [facility] [address], [place], MCH (RBC) [Entitic mass] 29.5 pg Normal 26.0-34.[address] [facility] Comment on above: Performed By: #### C BC #### [facility] [address] [place] [address], MCHC (RBC) [Mass/Vol] 33.5 g/dL Normal 32.0-35.9 [facility] Comment on above: Performed By: #### C BC #### [facility] [address] [place] [address], MCV (RBC) [Entitic vol] 88 fL Normal 80-[address] [facility] Comment on above: Performed By: #### C BC #### [facility] [address] [place] [address], Platelet mean volume (Bld) [Entitic vol] 7.8 fL Normal 7.5-11.2 [facility] [place] Comment on above: Performed By: #### C BC #### [facility] [address] [place] [address], Platelets (Bld) [#/Vol] 185 10*3/uL Normal 150-[address] [facility] Comment on above: Performed By: #### C BC #### [facility] [address] [place] [address], RBC (Bld) [#/Vol] 4.00 10*6/uL Low 4.50-5.90 [facility] [place] Comment on above: Performed By: #### C BC #### [facility] [address] [place] [address], WBC (Bld) [#/Vol] 9.8 10*3/uL Normal 4.5-11.[address] [facility] Comment on above: Performed By: #### C BC #### [facility] [address] [place] [address], Care Plan Noteon 04-10-2023 [employer] Interface Message Text Problem: Routine Care: Goal: Patient care will be managed and maintained throughout hospital stay per unit specific routine care procedure Outcome: Progressing Note: Hourly rounding performed. Problem: Impaired Skin Integrity: Goal: Acheive wound healing without signs and symptoms of infection Outcome: Progressing Note: Shiva scale interventions in place. Problem: VTE Prophylaxis: Goal: Will be free of DVT Outcome: Progressing Note: SCDs and Lovenox ordered. Problem: Altered Neurological Status: Goal: Optimal neurological status will be maintained or regained Outcome: Progressing Note: Neuro assessed Q shift. Problem: Acute Pain: Goal: Ability to identify pain intensity on a pain scale and rate it consistently will be achieved and maintained Outcome: Progressing Note: Numeric pain scale in use. Goal: Understanding of proper administration and use of medicines will be achieved Outcome: Progressing Note: Pre/post pain assessed. Goal: Acceptable level of pain which allows the patient to achieve functional outcome goals Outcome: Progressing Note: Routine pain assessed. Problem: Safety: Goal: Patient will remain free of falls during hospital stay Outcome: Progressing Note: Moderate falls risk interventions in place. Goal: Free from injury during hospitalization Outcome: Progressing Problem: Discharge Planning: Goal: Discharge needs of the adult patient will be met Outcome: Progressing Note: Home pending medical clearance. Problem: Altered Elimination: Goal: Establishment of normal urinary function will be acheived and maintained Outcome: Met Goal: Establishment of individualized urinary routine Outcome: Met Problem: Impaired Mobility: Goal: Ability to tolerate increased activity will improve and be maintained Outcome: Met Goal: Ability to maintain or regain baseline function will be acheived Outcome: Met Problem: Fluid and Electrolyte Imbalance: Goal: Adequate fluid and electrolyte balance will be achieved and maintained Outcome: Met Normal [facility] EKG 12 LEAD - PERFORMon 04-01 Diagnosis Sinus tachycardia Nonspecific T wave abnormality Abnormal ECG No previous ECGs available Confirmed by ROSALINA LIGHT ([id number]) on 04/10/2023 11:02:[address] [facility] wave [facility] by EKG 101 BPM [facility] P wave axis [address] [facility] P-R Interval [address] [facility] Q-T interval 322 ms [facility] Q-T interval corrected 417 ms [facility] QRS axis 70 degrees [facility] QRS duration 104 ms [facility] T wave axis 10 degrees [facility] MAGNESIUMon 04-10-2023 Magnesium [Mass/Vol] 1.8 mg/dL Low 1.9-2.7 [facility] Comment on above: Result Comment: Note updated reference ranges. Performed By: #### C H8 #### [facility] [address] [place], [place], Interpretation and review of laboratory results Abnormal [facility] Magnesium [Mass/Vol] 1.8 mg/dL Low 1.9 - 2 .7 mg/dL [facility] Comment on above: Note updated referen ce ranges. No Panel Informationon 04-10 Interpretation and review of laboratory results Normal [facility] PHOSPHORUSon 04-10-2023 Phosphate [Mass/Vol] 4.4 mg/dL Normal 2.5-5.0 [facility] Comment on above: Result Comment: Note updated reference ranges. Performed By: #### C H8 #### [facility] [address] [place], [place], Phosphate [Mass/Vol] 4.4 mg/dL 2.5 - 5 .0 mg/dL [facility] Comment on above: Note updated referen ce ranges. Progress Noteson 04-10-2023 [employer] Authentication Interface Message Text ---- GENERAL INFORMATION --- TRAUMA FLOOR - STAFF NOTE Patient Name: Eduarda Williamson Admission Date: 04/08/2023 Patient seen and examined on 04/10/23 -- INTERVAL HISTORY/EVENTS Background: Eduarda Williamson is a 32 year old male with no significant PMHx brought in by EMS [facility] from [facility]. 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 -LOC -headstrike -AC/AP. [facility] imaging demonstrated a small R PTX, SMA artery dissection with active hemorrhage and L forearm fracture and was transferred to [facility] for further care. 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 CTA redemonstrates the focal hematoma in the RLQ with no evidence of active extravasation. No PTX on imaging. Mild increase in the amount of hemoperitoneum which abuts loops of lbowel. Admitted to trauma [facility] for serial abdominal exams. RADHA splinted by ortho. Hospital Course: 04/08/2023: Fall from ht. Tx'd to [facility] from [facility] for serial abdominal exams and orthopedic consultation. 04/09: Abdominal exams benign. H/H stable. Admitted to Trauma [facility]. 24 Hour Events: This is my first time meeting this patient. No acute overnight events. Pt endorsing +flatus and tolerating clear liquid diet. Pain is stable, endorsing mild, intermittent abdominal tenderness that continues to improve since admit. Also endorsing R thigh pain- on exam, motor and sensation intact with no obvious deformity. Labs Reviewed: BMP stable, no leukocytosis, mild downtrend H/H 11.8 (12.5) Vital Signs reviewed. Afebrile, Not tachycardic, normotensive, Sats 99% on room air Intake/Output PO: 905ml UOP: 2075ml +3x Stool: 0x, Last BM [employer] on 2.9.24 PHYSICAL EXAM Vital Signs: Vital sign ranges over the past 24 hours (retrieved 04/10/2023 at 6:44 AM): Tmax (24 hours): 98.9 ???F (37.2 ???C) Pulse Av.9 Min: 76 Max: 101 Systolic (24hrs), Av , Min:113 , Max:163 Diastolic (24hrs), Av, Min:69, Max:97 MAP (mmHg) Av.9 mmHg Min: 76 mmHg Max: 114 mmHg Resp Av.2 Min: 12 Max: 25 SpO2 Av.3 % Min: 95 % Max: 100 % PHYSICAL EXAM GENERAL: NAD lying in bed, pleasant and conversant NEURO: GCS 15, no focal neurologic deficits. HEENT: Normocephalic CARDIOVASCULAR: RRR, No MRG PULMONARY: CTAB on RA, unlabored respirations ABDOMINAL: S/ND/NT EXTREMITIES: No edema, HENNING. R thigh mildy TTP. Splint LUE, unable to assess radial pulse, cap refill <3 seconds, MSPs intact. SKIN: [facility] RESULTS (LAST 24 HOURS) CBC/PT/INR WBC RBC Hgb Hct MCV RDW Plt PT aPTT INR 04/10/23210 9.8 4.00 11.8 35.3 88 13.9 185 04/09/23 1121 10.8 4.31 12.5 37.7 87 14.1 198 Basic Metabolic Panel Na K Cl CO2 Gap Glu BUN Cr Ca Mg PO4 04/10/23210 137 Comment: Note updated reference ranges. 4.1 Comment: Note updated reference ranges. Note updated reference ranges. 102 Comment: Note updated reference ranges. 26 Comment: Note updated reference ranges. 13 87 13 Comment: Note updated reference ranges. 0.85 Comment: Note updated reference ranges. 8.9 Comment: Note updated reference ranges. 04/10/23210 4.4 Comment: Note updated reference ranges. 04/10/23210 1.8 Comment: Note updated reference ranges. Fingerstick Glucose (last 72 hours) None IMAGING RESULTS (PERSONALLY REVIEWED) XR L Forearm- Post splint image: IMPRESSION: Acute, comminuted, minimally displaced fracture of the mid radial diaphysis. No radiopaque foreign body identified. All admit imaging and follow up imaging reviewed. ----- ASSESSMENT AND PLAN -------- Diagnoses: 1. S/p Fall from height, ~30ft (ladder) 04/08/2023 2. Traumatic mesenteric hematoma 3. Left radial shaft fracture 4. Small R apical pneumothorax 5. Acute pain due to trauma No past medical history on file. Incidental Findings: None on imaging, reviewed 04/10. Plan: Neurologic: Acute pain d/t trauma. Pain well controlled. - Continue Tylenol 1000mg q6h scheduled - Wean Oxycodone to 2.5-5 mg q4h prn moderate-severe pain Cardiovascular: HR/BP stable -Continue VS per unit protocol Respiratory: Tiny R apical PTX on FT imaging.unlabored on RA. 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 No bowel injury/active extravasation. Serial abdominal exams stable. Passing flatus, tolerating clears - Advance to regular diet - Continue bowel regimen of senna, miralax, p (more content not included)... Normal [facility] XR FOREARM LEFT 2 VIEWSon XR FOREARM LEFT 2 VIEWS EXAMINATION: XR FOREARM LEFT 2 VIEWSPRO/LT 04/10/2023 12:00 AM CLINICAL HISTORY: Post splint COMPARISON: XR ELBOW LEFT MINIMUM 3 VIEWS 04/08/2023, 6:52 PM IMPRESSION: Acute, comminuted, minimally displaced fracture of the mid radial diaphysis. No radiopaque foreign body identified. Left forearm MACRO: None Normal [facility] XR Radius and Ulna - left Vi ewson 04-10-2023 EXAMINATION: XR FORE ARM LEFT 2 VIEWSPRO/LT 04/10/2023 12:00 AM CLINICAL HISTORY: Post splint COMPARISON: XR ELBOW LEFT MINIMUM 3 VIEWS 04/08/2023, 6:52 PM IMPRESSION: Acute, comminuted, minimally displaced fracture of the mid radial diaphysis. No radiopaque foreign body identified. Left forearm MACRO: None RADIOLOGY Jean Carlos Phipps MD - 04/10/2023 EXAMINATION: XR FOREARM LEFT 2 VIEWSPRO/LT 04/10/2023 12:00 AM CLINICAL HISTORY: Post splint COMPARISON: XR ELBOW LEFT MINIMUM 3 VIEWS 04/08/2023, 6:52 PM IMPRESSION: Acute, comminuted, minimally displaced fracture of the mid radial diaphysis. No radiopaque foreign body identified. Left forearm MACRO: None [facility] XR Radius and Ulna - left Vi ewsOrdered By: Jean Carlos Phipps on 04-10-2023 [employer] Work Phone: BASIC METABOLIC PANELon Anion gap [Moles/Vol] 12 mmol/L Normal 10-20 [facility] [employer] [facility] Comment on above: Performed By: #### C H8 #### S PATHOLOGY LABORATORY [address] [place] [address], Calcium [Mass/Vol] 8.8 mg/dL Normal 8.6-10.3 [facility] [employer] [facility] Comment on above: Result Comment: Note updated reference ranges. Performed By: #### C H8 #### S PATHOLOGY LABORATORY [address] [place] [address], Chloride [Moles/Vol] 106 mmol/L Normal 98-107 [facility] [employer] [facility] Comment on above: Result Comment: Note updated reference ranges. Performed By: #### C H8 #### S [facility]ORY [address] [place] [address], CO2 [Moles/Vol] 25 mmol/L Normal 21-31 [facility] [employer] [facility] Comment on above: Result Comment: Note updated reference ranges. Performed By: #### C H8 #### S [facility] LAB[facility]ATORY [address] [place] [address], Creatinine [Mass/Vol] 0.82 mg/dL Normal 0.70-1.30 [facility] [employer] [facility] Comment on above: Result Comment: Note updated reference ranges. Performed By: #### C H8 #### S PATHOLOG[facility] LAB[facility]ATORY [address] [place] [address], ESTIMATED GFR (CKD-EPI) 121 mL/min/1.73sqm Normal >=60 [facility] [employer] [facility] Comment on above: Result Comment: 2020 CKD EPI Equation using Creatinine without Race Comment: Estimated glomerular filtration rate (eGFR) is calculated without a race coefficient. Values should be interpreted in the context of the patient's full clinical presentation. Reference: 1. Atif C, Frida M, Navdeep POWERS, et al.. A Unifying Approach for GFR Estimation: Recommendations of the NKF-ASN Task Force on Reassessing the Inclusion of Race in Diagnosing Kidney Disease. German Journal of Kidney Diseases 2021;79(2):268-88.e1. 2. N Engl J Med 2020 Vol. 385 Issue 19 Pages 1104-7219 Performed By: #### C H8 #### S PATHOLOG[facility]ORY [address] [place] [address], Glucose [Mass/Vol] 103 mg/dL Normal 74-109 [facility] Comment on above: Performed By: #### C H8 #### S PATHOLOG[facility] LABORATORY [address] [place] [address], Potassium [Moles/Vol] 4.3 mmol/L Normal 3.5-5.0 [facility] Comment on above: Result Comment: Note updated reference ranges. Note updated reference ranges. Performed By: #### C H8 #### S [facility] [address] [place] [address], Sodium [Moles/Vol] 139 mmol/L Normal 136-145 [facility] Comment on above: Result Comment: Note updated reference ranges. Performed By: #### C H8 #### S [facility] [address] [place] [address], Urea nitrogen [Mass/Vol] 14 mg/dL Normal 7-25 [facility] Comment on above: Result Comment: Note updated reference ranges. Performed By: #### C H8 #### S PATHOLOG[facility] LABORATORY [address] [place] [address], Basic metabolic 2000 panelon 04-09-2023 Anion gap [Moles/Vol] 12 mmol/L 10 - 20 [facility] Calcium [Mass/Vol] 8.8 mg/dL 8.6 - 10. 3 mg/dL [facility] Comment on above: Note updated referen ce ranges. Chloride [Moles/Vol] 106 mmol/L 98 - 10 7 mmol/L [facility] Comment on above: Note updated referen ce ranges. CO2 [Moles/Vol] 25 mmol/L 21 - 31 mmol/L [facility] Comment on above: Note updated referen ce ranges. Creatinine [Mass/Vol] 0.82 mg/dL 0.70 - 1.30 mg/dL [facility] Comment on above: Note updated referen ce ranges. GFR/1.73 sq M.predicted CKD-EPI (S/P/Bld) [Vol rate/Area] 121 - PINF [facility] Comment on above: 2020 CKD EPI Equatio n using Creatinine without Race Comment: Estimated glomerular filtration rate (eGFR) is calculated without a race coefficient. Values should be interpreted in the context of the patient's full clinical presentation. Reference: 1. Atif C, Frida M, Navdeep DC, et al.. A Unifying Approach for GFR Estimation: Recommendations of the NKF-ASN Task Force on Reassessing the Inclusion of Race in Diagnosing Kidney Disease. [place] Journal of Kidney Diseases 202;79(2):268-88.e1. 2. N Engl J Med 1 Vol. 385 Issue 19 Pages 9732-2062 Glucose [Mass/Vol] 103 mg/dL 74 - 109 mg/dL [facility] Interpretation and review of laboratory results Normal [facility] Potassium [Moles/Vol] 4.3 mmol/L 3.5 - 5.0 mmol/L [facility] Comment on above: Note updated referen ce ranges. Note updated reference ranges. Sodium [Moles/Vol] 139 mmol/L 136 - 145 mmol/L [facility] Comment on above: Note updated referen ce ranges. Urea nitrogen [Mass/Vol] 14 mg/dL 7 - 25 mg/dL [facility] Comment on above: Note updated referen ce ranges. [facility] CBC panel Auto (Bld)on 04-09 Erythrocyte distribution width (RBC) [Ratio] 14.1 % 11.5 - 14.5 % [facility] Hematocrit (Bld) [Volume fraction] 37.7 % Low 41.0 - 53.0 % [facility] Hemoglobin (Bld) [Mass/Vol] 12.5 g/dL Low 13.9 - 16.3 g/dL [facility] Interpretation and review of laboratory results Abnormal [facility] MCH (RBC) [Entitic mass] 29.0 pg 26.0 - 34.0 pg [facility] MCHC (RBC) [Mass/Vol] 33.2 g/dL 32.0 - 35.9 g/dL [facility] MCV (RBC) [Entitic vol] 87 fL 80 - 100 fL [facility] Platelet mean volume (Bld) [Entitic vol] 7.3 fL Low 7.5 - 11.2 fL [facility] Platelets (Bld) [#/Vol] 198 10*3/uL 150 - 400 K/uL [facility] RBC (Bld) [#/Vol] 4.31 10*6/uL Low [facility] WBC (Bld) [#/Vol] 10.8 10*3/uL 4.5 - 11.5 K/uL [facility] Erythrocyte distribution width (RBC) [Ratio] 14.3 % 11.5 - 14.5 % [facility] Hematocrit (Bld) [Volume fraction] 38.2 % Low 41.0 - 53.0 % [facility] Hemoglobin (Bld) [Mass/Vol] 12.7 g/dL Low 13.9 - 16.3 g/dL [facility] Interpretation and review of laboratory results Abnormal [facility] MCH (RBC) [Entitic mass] 29.1 pg 26.0 - 34.0 pg [facility] MCHC (RBC) [Mass/Vol] 33.3 g/dL 32.0 - 35.9 g/dL [facility] MCV (RBC) [Entitic vol] 88 fL 80 - 100 fL [facility] Platelet mean volume (Bld) [Entitic vol] 7.4 fL Low 7.5 - 11.2 fL [facility] Platelets (Bld) [#/Vol] 208 10*3/uL 150 - 400 K/uL [facility] RBC (Bld) [#/Vol] 4.37 10*6/uL Low [facility] WBC (Bld) [#/Vol] 11.6 10*3/uL High 4.5 - 11.5 K/uL [facility] COMPLETE BLOOD COUNTon 04-09 Erythrocyte distribution width (RBC) [Ratio] 14.1 % Normal 11.5-14.5 [facility] Comment on above: Performed By: #### C BC ####[facility] [id number] [place], [id number] Hematocrit (Bld) [Volume fraction] 37.7 % Low 41.0-53.0 [facility] Comment on above: Performed By: #### C BC ####[facility] [id number] [place], [place], Hemoglobin (Bld) [Mass/Vol] 12.5 g/dL Low 13.9-16.3 [facility] Comment on above: Performed By: #### C BC ####[facility] [id number] [place], [place], MCH (RBC) [Entitic mass] 29.0 pg Normal 26.0-34.0 [facility] Comment on above: Performed By: #### C BC ####[facility] [id number] [place], [place], MCHC (RBC) [Mass/Vol] 33.2 g/dL Normal 32.0-35.9 [facility] Comment on above: Performed By: #### C BC ####[facility] [id number] [place], [place], MCV (RBC) [Entitic vol] 87 fL Normal 80-100 [facility] Comment on above: Performed By: #### C BC ####[facility] [id number] [place], [place], Platelet mean volume (Bld) [Entitic vol] 7.3 fL Low 7.5-11.2 [facility] Comment on above: Performed By: #### C BC ####[facility] [id number] [place], [place], Platelets (Bld) [#/Vol] 198 10*3/uL Normal 150-400 [facility] Comment on above: Performed By: #### C BC ####[facility] [id number] [place], [place], RBC (Bld) [#/Vol] 4.31 10*6/uL Low 4.50-5.90 [facility] Comment on above: Performed By: #### C BC ####[facility] [id number] [place], [place], WBC (Bld) [#/Vol] 10.8 10*3/uL Normal 4.5-11.[address] [facility] Comment on above: Performed By: #### C BC ####[facility] [id number] [place], [place], Erythrocyte distribution width (RBC) [Ratio] 14.3 % Normal 11.5-14.5 [facility] [place] Comment on above: Performed By: #### C BC #### [facility] [address] [place], [place], Hematocrit (Bld) [Volume fraction] 38.2 % Low 41.0-53.0 [facility] Comment on above: Performed By: #### C BC #### [facility] [address] [place], [place], Hemoglobin (Bld) [Mass/Vol] 12.7 g/dL Low 13.9-16.3 [facility] Comment on above: Performed By: #### C BC #### [facility] [address] [place], [place], MCH (RBC) [Entitic mass] 29.1 pg Normal 26.0-34.0 [facility] [place] Comment on above: Performed By: #### C BC #### [facility] [address] [place], [place], MCHC (RBC) [Mass/Vol] 33.3 g/dL Normal 32.0-35.9 [facility] Comment on above: Performed By: #### C BC #### [facility] [address] [place], [place], MCV (RBC) [Entitic vol] 88 fL Normal 80-100 [facility] Comment on above: Performed By: #### C BC #### [facility] [address] [place], [place], Platelet mean volume (Bld) [Entitic vol] 7.4 fL Low 7.5-11.2 [facility] Comment on above: Performed By: #### C BC #### [facility] [address] [place], [place], Platelets (Bld) [#/Vol] 208 10*3/uL Normal 150-400 [facility] [employer] [facility] Comment on above: Performed By: #### C BC #### [facility] [address] [place], [place], RBC (Bld) [#/Vol] 4.37 10*6/uL Low 4.50-5.90 [facility] [employer] [facility] Comment on above: Performed By: #### C BC #### S PATHOLOGY LABORATORY [address] [place], [place], WBC (Bld) [#/Vol] 11.6 10*3/uL High 4.5-11.5 [facility] [employer] [facility] Comment on above: Performed By: #### C BC #### S PATHOLOGY LABORATORY [address] [place], [place], Care Plan Noteon 04-09-2023 [employer] Aut[employer] Interface Message Text Problem: Routine Care: Goal: Patient care will be managed and maintained throughout hospital stay per unit specific routine care procedure Outcome: Progressing Note: Purposeful hourly rounding performed. Problem: Impaired Skin Integrity: Goal: Acheive wound healing without signs and symptoms of infection Outcome: Progressing Note: LUE sugartong splint intact. Problem: Altered Elimination: Goal: Establishment of normal urinary function will be acheived and maintained Outcome: Progressing Note: Carney removed at 1800 per order- patient due for spontaneous void. Goal: Establishment of individualized urinary routine Outcome: Progressing Problem: Impaired Mobility: Goal: Ability to tolerate increased activity will improve and be maintained Outcome: Progressing Note: NWB LUE, PT/OT. Goal: Ability to maintain or regain baseline function will be acheived Outcome: Progressing Problem: VTE Prophylaxis: Goal: Will be free of DVT Outcome: Progressing Problem: Fluid and Electrolyte Imbalance: Goal: Adequate fluid and electrolyte balance will be achieved and maintained Outcome: Progressing Problem: Altered Neurological Status: Goal: Optimal neurological status will be maintained or regained Outcome: Progressing Problem: Acute Pain: Goal: Ability to identify pain intensity on a pain scale and rate it consistently will be achieved and maintained Outcome: Progressing Note: Patient aware of PRN pain medications. Will continue to assess pain throughout shift and medicate as indicated. Goal: Understanding of proper administration and use of medicines will be achieved Outcome: Progressing Goal: Acceptable level of pain which allows the patient to achieve functional outcome goals Outcome: Progressing Problem: Safety: Goal: Patient will remain free of falls during hospital stay Outcome: Progressing Goal: Free from injury during hospitalization Outcome: Progressing Problem: Discharge Planning: Goal: Discharge needs of the adult patient will be met Outcome: Progressing Normal [facility] [employer] [facility] Consultson 04-09-2023 [employer] Authentication Interface Message Text Expand All Collapse All Orthopaedic Surgery Consult H AND P Requesting Provider / Service: Trauma CC: L forearm pain HPI: RHD 32M with PMH of daily smoking presents to [facility] after fall down a ladder. Complaining of left arm and abdominal pain. Orthopedic Injuries: L midshaft radius fracture Other Injuries: Mesenteric hematoma N history of VTE. Daily smoker/Denies EtOH/Denies drug use. Blood thinners: N PMH: Medical History Past Medical History: Diagnosis Date Obesity BMI > 99th percentile Tinea pedis Surgical History Past Surgical History: Procedure Laterality Date NO PAST SURGICAL HISTORY Social History Social History Socioeconomic History Marital status: Single Tobacco Use Smoking status: Never Smokeless tobacco: Never Social History Narrative 08/02/18 Lives with maternal grandmother. Has older siblings in the area who do not live at home anymore. Her biological parents live in the area, but she chose to live with grandmother. Will be starting 11th grade in the fall. Charlee Coreas, PGY-4 Pager: [phone] Social Determinants of Health Financial Resource Strain: High Risk (12/04/2021) Received from [facility] Overall Financial Resource Strain (CARDIA) Difficulty of Paying Living Expenses: Hard Food Insecurity: Food Insecurity Present (12/04/2021) Received from [facility] Hunger Vital Sign Worried About Running Out of Food in the Last Year: Often true Ran Out of Food in the Last Year: Often true Transportation Needs: No Transportation Needs (12/04/2021) Received from [facility] PRAPARE - Transportation Lack of Transportation (Medical): No Lack of Transportation (Non-Medical): No No Known Allergies No current facility-administered medications for this encounter. Current Outpatient Medications: raNITIdine (ZANTAC) 75 MG tablet, Take 1 Tablet by mouth 2 times daily., Disp: 60 Tablet, Rfl: 3 ergocalciferol (DRISDOL) 1.25 MG (02295 UT) capsule, Take 1 Capsule by mouth once weekly for 12 doses., Disp: 12 Capsule, Rfl: 0 clotrimazole (LOTRIMIN) 1 % cream, Apply thin layer to affected area twice daily., Disp: 1 Tube, Rfl: 2 Family History Family History Problem Relation Age of Onset Diabetes Mellitus Maternal Grandmother Hypertension Maternal Grandmother Cancer Maternal Grandmother thyroid cancer- removed Review of Systems: No pertinent symptoms related to systems other than those stated above. O: Patient Vitals for the past 24 hrs: BP Temp Pulse Resp SpO2 04/08/23 1636 -- 98.2 ???F (36.8 ???C) -- -- -- 04/08/23 1630 139/80 -- (!) 104 13 99 % No intake or output data in the 24 hours ending 04/08/23 2259 PE: BP 139/80 Pulse (!) 104 Temp 98.2 ???F (36.8 ???C) Resp 13 SpO2 99% GEN: AaOx4, NAD, conversant and cooperative, HEENT: normocephalic atraumatic, EOMI, MMM, trachea midline PSYCH: appropriate mood and affect RESP: nonlabored breathing CARDIAC: Extremities WWP, RRR to peripheral palpation GI: Non-distended : carney NEURO: CN 2-12 grossly intact SKIN: No rashes/abrasions L upper extremity: - Skin intact without deformity. - Tender to palpation over l forearm - AIN/PIN/Uln motor fxn intact - SILT axillary, radial, median, ulnar - 2+ radial pulse. Cap refill < 2 seconds in all digits. - Compartments soft and compressible. A complete secondary exam was performed, and no injuries were identified other than those stated above. Labs: CBC/PT/INR WBC RBC Hgb Hct MCV RDW Plt PT aPTT INR 04/08/23 1633 1.10 04/08/23 1633 30 04/08/23 1633 13.3 4.89 13.5 40.9 84 13.5 296 Basic Metabolic Panel Na K Cl CO2 Gap Glu BUN Cr Ca Mg PO4 04/08/23 1633 139 Comment: Note updated reference ranges. 3.7 Comment: Note updated reference ranges. Note updated reference ranges. 105 Comment: Note updated reference ranges. 23 Comment: Note updated reference ranges. 15 99 13 Comment: Note updated reference ranges. 0.65 Comment: Note updated reference ranges. 9.0 Comment: Note updated reference ranges. Cardiac None Imaging: XR: L midshaft radius fracture A/P: RHD 32 male presenting with L midshaft radius fracture. Being admitted for mesenteric hematoma. Placed in sugartong splint - No indication for emergent operative intervention. If pt still admitted 04/15. Hand team to have time for operative management. Otherwise can plan on outpatient surgical management - NINA GARCIA STS 04/08/23 This consult was seen and staffed within 30 minutes of the initial consult. Plan was discussed with attending surgeon Dr. Ismael Renee MD Resident, PGY-2 Department of Orthopaedic Surgery For questions/issues: Patient will be followed by the Hand team, at 0700 the day following initial consultation. Please page: Ortho Hand Team: Flor Dunham, PGY4: [phone] Between 5pm-7am, week (more content not included)... Normal The [employer] [facility] LACTIC ACIDon 04-09-2023 CR LACT 1.2 mmol/L Normal 0.5-1.6 The [employer] [facility] Comment on above: Performed By: #### L ACT #### [facility] [address] [place] [address], [id number] LACTIC ACIDOrdered By: Alisia Paris on 04-09-2023 Interpretation and review of laboratory results Normal [facility] Lactate [Moles/Vol] 1.2 mmol/L 0.5 - 1. 6 mmol/L [facility] Progress Noteson 04-09-2023 [employer] Authentication Interface Message Text Division of Trauma, Surgical Critical Care, EGS Ticket to Roll Note . Provider Called Report To (Enter Provider Name, Service, and Time): Leandra Velázquez. Trauma Surgery. 1936, who is the RUP. The patient is transferring from ED, room # 48, to Trauma [address], room # 9-088. The patient was added to the Trauma Surgery list. Tiara Haji MD RUP = Receiving unit provider RNF = Regular nursing floor Normal [facility] [employer] [facility] [employer] Authentication Interface Message Text --- GENERAL INFORMATION --- TRAUMA FLOOR - STAFF NOTE Patient seen and examined on 04/09/2023 Patient Name: Eduarda Williamson Admission Date: 04/08/2023 -- INTERVAL HISTORY/EVENTS Background: Eduarda Williamson is a 32 year old male (healthy) brought in by EMS [facility]. 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 On arrival to ED, he is alert, stable, and complaining of abdominal pain/discomfort and left arm pain. Denies loss of consciousness. 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 His left arm was placed in a sugar tong splint at OSH which was removed on arrival. Denies any formal reduction at OSH. He did not receive any blood products. Carney in place. Hospital Course: 09/07: Admitted to Trauma service for serial abdominal exams. Seen by orthopedic surgery with splint placed to E. 24-hour Events: Patients abdominal exam was stable overnight. No new complaints this AM. States abdominal pain is improving. --- VITALS AND INPUT/OUTPUT ---- Vital Signs: Vital sign ranges over the past 24 hours (retrieved 04/09/2023 at 12:09 PM): Tmax (24 hours): 98.5 ???F (36.9 ???C) Pulse Av.9 Min: 72 Max: 106 Systolic (24hrs), Av , Min:120 , Max:144 Diastolic (24hrs), Av, Min:67, Max:92 MAP (mmHg) Av.7 mmHg Min: 86 mmHg Max: 101 mmHg Resp Av.5 Min: 12 Max: 28 SpO2 Av.5 % Min: 87 % Max: 100 % 24 Hour Input/Output No intake/output data recorded. PHYSICAL EXAM General: Laying in bed, in no acute distress HEENT: normocephalic, atraumatic CV: Regular Rate Pulm: sating well on room air, chest rise symmetric, no increased WOB Abdomen: abdomen soft, non-tender, mildly distended MSK: no peripheral edema, LUE in splint movement and sensation intact. Good cap refill. SKIN: no jaundice, rashes or lesions NEURO: GCS 15, no focal deficits LABORATORY RESULTS (LAST 24 HOURS) 139 106 14 / 103 4.3 25 0.82 BMP: 04/09/2023: 5:21 AM 10.8 12.5 / 198 / 37.7 CBC: 04/09/2023: 11:21 AM IMAGING RESULTS (PERSONALLY REVIEWED) No new imaging to review ---- ASSESSMENT AND PLAN --------- Eduarda Williamson is a 32 year old male with no significant past medical history who presents as a CAT [facility] from 30 ft. 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 Patients abdominal exam and hemoglobin have remained stable. 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 Comminuted Left radial shaft fracture Incidental Findings: None Plan: Neurologic - Analgesia: Tylenol 1g q8h, Oxycodone 5/10 mg for moderate/severe pain, Respiratory - Incentive Spirometer Cardiovascular - Monitor Vitals No home heart meds GI - Diet: Clear Liquid Bowel Regimen: Senna, Miralax Renal/ - Measure I AND O Daily BMP, Mg, Phos. Replace as needed Endo - No glycemic issues at this time. Heme - No indication for transfusion at this time. Daily CBC ID - No indication for antibiotics at this time. MSK - Progressive mobility protocol NWB LUE PT/OT- Pending Evaluation Prophylaxis: VTE - SCDs. Lovenox GI: none indicated Dispo: RNF Follow up: Orthopedic surgery for outpatient surgical management. Patient seen and evaluated with chief resident Dr. Haji and discussed with Attending Surgeon Dr. Jonathon Pineda MD PGY1 Trauma Surgery Pager: [phone] Teaching Physician Note: I saw and evaluated the patient. I personally obtained the ortez and critical portions of the history and physical exam. I reviewed the resident's documentation and discussed the patient with the resident. I agree with the resident's medical decision making as documented in the resident's note. Ying Holt MD Division of Trauma, Critical Care, [place], and Emergency General Surgery Department of Surgery [facility] Pager: [phone] [facility] Authentication Interface Message Text Serial abdominal exam at this time: soft non tender without guarding or rebound and states abdominal pain is improving Hiro Porter, DO Normal [facility] [employer] Authentication Interface Message Text Serial abdominal exam at this time: soft non tender without guarding or rebound Hiro Porter, DO Normal The [employer] [facility] XR Radius and Ulna - left Vi ewson 04-09-2023 Radiology Study observation (narrative) [employer] ABO RH TYPEon 04-08-2023 ABO and Rh group Nom (Bld) Blood group O Rh(D) positive Normal [facility] [employer] Comment on above: Performed By: #### C BC #### [facility] [address] [place], [place], [facility] ABO/Rh Retypeon 04-08-2023 ABO/RH Recheck Result Positive Normal [facility] Comment on above: Result Comment: PERF ORMED BY: [facility] [address] [place] [address] PATHOLOGIST [employer] ZENY CURRIE M.D. AMYLASEon 04-08-2023 DEMETRICE 33 IU/L Normal 28-100 [facility] Comment on above: Performed By: #### C BC #### [facility] [address] [place], [place], Amylase [Catalytic activity/Vol] 33 U/L [facility] Activated partial thrombopla stin time (aPTT) in platelet poor plasma by coagulation aOrdered By: Leonidse Walker on 04-08-2023 aPTT Coag (PPP) [Time] 27.4 s 25.1-36.5 [facility] Comment on above: A hematocrit value g reater than 55% may lead to inaccurate results in coagulation testing. Patients having hematocrit values >55% require a special collection tube for coagulation studies. Please contact the laboratory at [phone] for redraw instructions. AdmissionCareon 04-08-2023 [employer] Authentication Interface Message Text AdmissionCare Guideline: Abdominal Trauma (Blunt), Inpatient Based on the indications selected for the patient, the bed status of Inpatient was determined to be MET The following indications were selected as present at the time of evaluation of the patient: - Positive diagnostic findings, including 1 or more of the following: - Imaging findings requiring surgery or inpatient care (eg, free fluid, hemorrhage, abdominal vascular injury, organ injury) AdmissionCare documentation entered by: Luis Eduardo [employer] [facility] [employer], 27th edition, Copyright ??? 2022 [facility] [employer] [facility] All Rights Reserved. [id number]:32:11-05:00 Normal [facility] Alanine aminotransferase [En zymatic activity/volume] in Serum or PlasmaOrdered By: Leonides Walker on 04-08-2023 ALT [Catalytic activity/Vol] 57 U/L 7-52 [facility] Albumin [Mass/volume] in Ser um or Plasma by Bromocresol green (BCG) dye binding methoOrdered By: Leonides Walker on 04-08-2023 Albumin BCG dye [Mass/Vol] 4.2 g/dL 3.5-5.7 [facility] Alkaline phosphatase [Enzyma tic activity/volume] in Serum or PlasmaOrdered By: Leonides Walker on 04-08-2023 ALP [Catalytic activity/Vol] 66 U/L 34-104 [facility] Amphetamine Screen Ql (U)Ord ered By: Leonides Walker on 04-08-2023 Amphetamines Ql (U) Negative Negative [facility] Aspartate aminotransferase [ Enzymatic activity/volume] in Serum or PlasmaOrdered By: Leonides Walker on 04-08-2023 AST [Catalytic activity/Vol] 41 U/L 13-39 [facility] BASIC METABOLIC PANELon Anion gap [Moles/Vol] 13 mmol/L Normal 10-20 [facility] [place], [facility] Comment on above: Performed By: #### L ACT #### S PATHOLOGY LABORATORY [address] [place] [address], Calcium [Mass/Vol] 9.4 mg/dL Normal 8.6-10.[address] [facility] Comment on above: Result Comment: Note updated reference ranges. Performed By: #### L ACT #### S [facility] LAB[facility]ATORY [address] [place] [address], Chloride [Moles/Vol] 106 mmol/L Normal 98-[address] [facility] Comment on above: Result Comment: Note updated reference ranges. Performed By: #### L ACT #### S [facility] [address] [place] [address], CO2 [Moles/Vol] 26 mmol/L Normal 21-[address] [facility] Comment on above: Result Comment: Note updated reference ranges. Performed By: #### L ACT #### [facility] [address] [place] [address], Creatinine [Mass/Vol] 0.86 mg/dL Normal 0.70-1.[address] [facility] Comment on above: Result Comment: Note updated reference ranges. Performed By: #### L ACT #### S [facility] [address] [place] [address], ESTIMATED GFR (CKD-EPI) 119 mL/min/1.73sqm Normal >=60 The [facility] [facility] Comment on above: Result Comment: 2020 CKD EPI Equation using Creatinine without Race Comment: Estimated glomerular filtration rate (eGFR) is calculated without a race coefficient. Values should be interpreted in the context of the patient's full clinical presentation. Reference: 1. Atif C, Frdia M, Navdeep POWERS, et al.. A Unifying Approach for GFR Estimation: Recommendations of the NKF-ASN Task Force on Reassessing the Inclusion of Race in Diagnosing Kidney Disease. [place] Journal of Kidney Diseases 202;79(2):268-88.e1. 2. N Engl J Med 2020 Vol. 385 Issue 19 Pages 7772-8772 Performed By: #### L ACT #### [facility] [address] [place] [address], Glucose [Mass/Vol] 106 mg/dL Normal 74-109 The [employer] [facility] Comment on above: Performed By: #### L ACT #### [facility] [address] [place] [address], Potassium [Moles/Vol] 3.9 mmol/L Normal 3.5-5.0 The [employer] [facility] Comment on above: Result Comment: Note updated reference ranges. Note updated reference ranges. Performed By: #### L ACT #### [facility] [address] [place] [address], Sodium [Moles/Vol] 141 mmol/L Normal 136-145 [facility] [employer] [facility] Comment on above: Result Comment: Note updated reference ranges. Performed By: #### L ACT #### [facility] [address] [place] [address], Urea nitrogen [Mass/Vol] 14 mg/dL Normal 7-25 [facility] [employer] [facility] Comment on above: Result Comment: Note updated reference ranges. Performed By: #### L ACT #### [facility] [address] [place] [address], Barbiturates [Presence] in U rine by Screen methodOrdered By: Leonides Walker on 04-08-2023 Barbiturates Screen Ql (U) Negative Negative [facility] Basic metabolic 2000 panelon 04-08-2023 Anion gap [Moles/Vol] 13 mmol/L 10 - 20 [facility] Calcium [Mass/Vol] 9.4 mg/dL 8.6 - 10. 3 mg/dL [facility] Comment on above: Note updated referen ce ranges. Chloride [Moles/Vol] 106 mmol/L 98 - 10 7 mmol/L [facility] Comment on above: Note updated referen ce ranges. CO2 [Moles/Vol] 26 mmol/L 21 - 31 mmol/L [facility] Comment on above: Note updated referen ce ranges. Creatinine [Mass/Vol] 0.86 mg/dL 0.70 - 1.30 mg/dL [facility] Comment on above: Note updated referen ce ranges. GFR/1.73 sq M.predicted CKD-EPI (S/P/Bld) [Vol rate/Area] 119 - PINF [facility] Comment on above: 2020 CKD EPI Equatio n using Creatinine without Race Comment: Estimated glomerular filtration rate (eGFR) is calculated without a race coefficient. Values should be interpreted in the context of the patient's full clinical presentation. Reference: 1. Atif C, Frida M, Navdeep DC, et al.. A Unifying Approach for GFR Estimation: Recommendations of the NKF-ASN Task Force on Reassessing the Inclusion of Race in Diagnosing Kidney Disease. German Journal of Kidney Diseases 2021;79(2):268-88.e1. 2. N Engl J Med 2020 Vol. 385 Issue 19 Pages 0696-9942 Glucose [Mass/Vol] 106 mg/dL 74 - 109 mg/dL [facility] Potassium [Moles/Vol] 3.9 mmol/L 3.5 - 5.0 mmol/L [facility] Comment on above: Note updated referen ce ranges. Note updated reference ranges. Sodium [Moles/Vol] 141 mmol/L 136 - 145 mmol/L [facility] Comment on above: Note updated referen ce ranges. Urea nitrogen [Mass/Vol] 14 mg/dL 7 - 25 mg/dL [facility] Comment on above: Note updated referen ce ranges. Basophils Auto (Bld) [#/Vol] Ordered By: Leonides Walker on 04-08-2023 Basophils (Bld) [#/Vol] 0.2 10*3/uL 0.0-0.2 [facility] Basophils/100 WBC Auto (Bld) Ordered By: Leonides Walker on 04-08-2023 Basophils/100 WBC (Bld) 1.5 % . [facility] Benzodiazepines Screen Ql (U )Ordered By: Leonides Walker on 04-08-2023 Benzodiazepines Ql (U) Negative Negative [facility] Benzoylecgonine [Presence] i n Urine by Screen methodOrdered By: Leonides Walker on 04-08-2023 Benzoylecgonine Screen Ql (U) Negative Negative [facility] Bilirubin.total [Mass/volume ] in Serum or PlasmaOrdered By: Leonides Walker on 04-08-2023 Bilirubin [Mass/Vol] 0.4 mg/dL 0.3-1.0 [facility] CBC WITH DIFFERENTIALon Basophils (Bld) [#/Vol] 0.08 10*3/uL Normal 0.00-0.[address] [facility] Comment on above: Performed By: #### C BCDSAT ####[facility] [id number] [place] [address], Basophils/100 WBC (Bld) 0.3 % Normal <=1.[address] [facility] Comment on above: Performed By: #### C BCDSAT ####[facility] [id number] [place], [place], Eosinophils (Bld) [#/Vol] 0.06 10*3/uL Normal 0.00-0.[address] [facility] Comment on above: Performed By: #### C BCDSAT ####S PATHOLOGY [id number] [place], [place], Eosinophils/100 WBC (Bld) 0.3 % Normal 0.1-4.[address] [facility] Comment on above: Performed By: #### C BCDSAT ####S PATHOLOGY [id number] [place], [place], Erythrocyte distribution width (RBC) [Ratio] 14.2 % Normal 11.5-14.[address] [facility] Comment on above: Performed By: #### C BCDSAT ####[facility] [id number] [place], [place], Hematocrit (Bld) [Volume fraction] 43.3 % Normal 41.0-53.[address] [facility] Comment on above: Performed By: #### C BCDSAT ####[facility] [id number] [place], [place], Hemoglobin (Bld) [Mass/Vol] 14.1 g/dL Normal 13.9-16.[address] [facility] Comment on above: Performed By: #### C BCDSAT ####[facility] [id number] [place], [place], Lymphocytes (Bld) [#/Vol] 2.14 10*3/uL Normal 1.00-4.80 [facility] [place] Comment on above: Performed By: #### C BCDSAT ####[facility] [id number] [place] [address], Lymphocytes/100 WBC (Bld) 9.5 % Low 24.0-44.0 [facility] Comment on above: Performed By: #### C BCDSAT ####[facility] [id number] [place], [place], MCH (RBC) [Entitic mass] 28.6 pg Normal 26.0-34.0 [facility] Comment on above: Performed By: #### C BCDSAT ####[facility] [id number] [place], [place], MCHC (RBC) [Mass/Vol] 32.6 g/dL Normal 32.0-35.9 [facility] Comment on above: Performed By: #### C BCDSAT ####[facility] [id number] [place], [place], MCV (RBC) [Entitic vol] 88 fL Normal 80-100 [facility] Comment on above: Performed By: #### C BCDSAT ####[facility] [id number] [place], [place], MONOCYTE DISTRIBUTION WIDTH 18 Normal <=20 [facility] [place] Comment on above: Performed By: #### C BCDSAT ####[facility] [id number] [place], [place], Monocytes (Bld) [#/Vol] 1.30 10*3/uL High 0.20-1.[address] [facility] Comment on above: Performed By: #### C BCDSAT ####[facility] [id number] [place], [place], Monocytes/100 WBC (Bld) 5.8 % Normal 2.0-11.[address] [facility] Comment on above: Performed By: #### C BCDSAT ####[facility] [id number] [place], [place], Neutrophils (Bld) [#/Vol] 18.95 10*3/uL High 1.50-8.[address] [facility] Comment on above: Performed By: #### C BCDSAT ####[facility] [id number] [place], [place], Neutrophils/100 WBC (Bld) 84.2 % High 31.0-76.0 [facility] [place] Comment on above: Performed By: #### C BCDSAT ####[facility] [id number] [place], [place], Platelet mean volume (Bld) [Entitic vol] 7.4 fL Low 7.5-11.2 [facility] [place] Comment on above: Performed By: #### C BCDSAT ####[facility] [id number] [place], [place], Platelets (Bld) [#/Vol] 245 10*3/uL Normal 150-400 [facility] [place] Comment on above: Performed By: #### C BCDSAT ####[facility] [id number] [place], [place], RBC (Bld) [#/Vol] 4.93 10*6/uL Normal 4.50-5.90 [facility] [place] Comment on above: Performed By: #### C BCDSAT ####[facility] [id number] [place], [place], WBC (Bld) [#/Vol] 22.5 10*3/uL High 4.5-11.5 [facility] Comment on above: Performed By: #### C BCDSAT ####[facility] [id number] [place], [address] Basophils (Bld) [#/Vol] 0.08 10*3/uL 0.00 - 0.20 K/uL [facility] Basophils/100 WBC (Bld) 0.3 % NINF - 1.9 % [facility] Eosinophils (Bld) [#/Vol] 0.06 10*3/uL 0.00 - 0.70 K/uL [facility] Eosinophils/100 WBC (Bld) 0.3 % 0.1 - 4.0 % [facility] Erythrocyte distribution width (RBC) [Ratio] 14.2 % 11.5 - 14.5 % [facility] Hematocrit (Bld) [Volume fraction] 43.3 % 41.0 - 53.0 % [facility] Hemoglobin (Bld) [Mass/Vol] 14.1 g/dL 13.9 - 16.3 g/dL [facility] Interpretation and review of laboratory results Abnormal [facility] Lymphocytes (Bld) [#/Vol] 2.14 10*3/uL 1.00 - 4.80 K/uL [facility] Lymphocytes/100 WBC (Bld) 9.5 % Low 24.0 - 44.0 % [facility] MCH (RBC) [Entitic mass] 28.6 pg 26.0 - 34.0 pg [facility] MCHC (RBC) [Mass/Vol] 32.6 g/dL 32.0 - 35.9 g/dL [facility] MCV (RBC) [Entitic vol] 88 fL 80 - 100 fL [facility] Monocyte distribution width Auto (Bld) [Entitic vol] 18 NINF - 20 [facility] Monocytes (Bld) [#/Vol] 1.30 10*3/uL High 0.20 - 1.00 K/uL [facility] Monocytes/100 WBC (Bld) 5.8 % 2.0 - 11.0 % [facility] Neutrophils (Bld) [#/Vol] 18.95 10*3/uL High 1.50 - 8.00 K/uL [facility] Neutrophils/100 WBC (Bld) 84.2 % High 31.0 - 76.0 % [facility] Platelet mean volume (Bld) [Entitic vol] 7.4 fL Low 7.5 - 11.2 fL [facility] Platelets (Bld) [#/Vol] 245 10*3/uL 150 - 400 K/uL [facility] RBC (Bld) [#/Vol] 4.93 10*6/uL [facility] WBC (Bld) [#/Vol] 22.5 10*3/uL High 4.5 - 11.5 K/uL [facility] T-SPINE/L-SPINE W/O CONTR Rosie 04-08-2023 CT T-SPINE/L-SPINE W/O CONTRAST EXAMINATION: CT T-SPINE/L-SPINE W/O CONTRASTPRO/PRO 04/08/2023 05:42 PM CLINICAL HISTORY: Fall more than 10 feet ASSOCIATED DIAGNOSIS: Fall more than 10 feet ORDERING PROVIDER: TIARA HAJI TECHNOLOGISTS NOTE: COMPARISON: None TECHNIQUE: Thin axial images were obtained through the thoracic and lumbar spine without intravenous contrast. 2D sagittal and coronal reconstructions were obtained from the axial data. FINDINGS: Vertebrae: No acute fracture or traumatic malalignment. No aggressive osseous lesions. Visible sacrum and pelvis: No acute abnormality. Soft tissue: See separately dictated CTA chest/abdomen/pelvis IMPRESSION: No acute fracture or traumatic malalignment of the thoracic or lumbar spine. MACRO: None Normal [facility] CT Thoracic and lumbar spine WO contraston 04-08-2023 EXAMINATION: CT T-SPINE/L-SPINE W/O CONTRASTPRO/PRO 04/08/2023 05:42 PM CLINICAL HISTORY: Fall more than 10 feet ASSOCIATED DIAGNOSIS: Fall more than 10 feet ORDERING PROVIDER: TIARA HAJI TECHNOLOGISTS NOTE: COMPARISON: None TECHNIQUE: Thin axial images were obtained through the thoracic and lumbar spine without intravenous contrast. 2D sagittal and coronal reconstructions were obtained from the axial data. FINDINGS: Vertebrae: No acute fracture or traumatic malalignment. No aggressive osseous lesions. Visible sacrum and pelvis: No acute abnormality. Soft tissue: See separately dictated CTA chest/abdomen/pelvis IMPRESSION: No acute fracture or traumatic malalignment of the thoracic or lumbar spine. MACRO: None RADIOLOGY Jeancarlos Gonzalez MD - 04/08/2023 EXAMINATION: CT T-SPINE/L-SPINE W/O CONTRASTPRO/PRO 04/08/2023 05:42 PM CLINICAL HISTORY: Fall more than 10 feet ASSOCIATED DIAGNOSIS: Fall more than 10 feet ORDERING PROVIDER: TIARA HAJI TECHNOLOGISTS NOTE: COMPARISON: None TECHNIQUE: Thin axial images were obtained through the thoracic and lumbar spine without intravenous contrast. 2D sagittal and coronal reconstructions were obtained from the axial data. FINDINGS: Vertebrae: No acute fracture or traumatic malalignment. No aggressive osseous lesions. Visible sacrum and pelvis: No acute abnormality. Soft tissue: See separately dictated CTA chest/abdomen/pelvis IMPRESSION: No acute fracture or traumatic malalignment of the thoracic or lumbar spine. MACRO: None [employer] CT Thoracic and lumbar spine WO contrastOrdered By: Jeancarlos Gonzalez on 04-08-2023 [employer] Work Phone: CT abdomen pelvis w conon CT abdomen pelvis w con [facility] [place] [address] [place] [address] CT Scan Report Signed Patient: Eduarda Williamson MR#: [id number] : 1990 Acct:[id number] Age/Sex: 32 / M ADM Date: 04/08/23 Loc: ER Room: Type: PRE ER Attending Dr: Copies to: Leonides Walker DO Ordering Provider: Leonides Walker DO Date of Service: 04/08/23 CT/CT abdomen pelvis w con: traumatic injury ([id number]) CT/CT chest w con: traumatic injury CT chest w con, CT abdomen pelvis w con 04/08/2023 2:37 PM SIGN AND SYMPTOMS: Fall from ladder, left wrist pain, forearm pain, right femur pain, abdominal tenderness CONTRAST: 90 mL of intravenous Isovue-300 TECHNIQUE: Multidetector CT axial slices of the chest, abdomen and pelvis were obtainedwith IV contrast. Multiplanar reformats were performed and viewed on a separate workstation and reviewed to further define anatomy and possible pathology. CT was performed with one or more of the following dose reduction techniques: Automated exposure control, adjustment of the mA and/or kV according to patient size, or use of iterative reconstruction technique. COMPARISON: None. FINDINGS: Lower neck: Thyroid gland within normal limits, no supraclavicle adenopathy. Vessels: Within normal limits. Mediastinum and Yvonne: Within normal limits. Heart: Normal size. No pericardial effusion. Airways: Within normal limits Lungs: There are areas of groundglass attenuation dependently presumably representing developing atelectasis. Pleura: There is a tiny pneumothorax anteriorly in the right upper chest with droplets of gas adjacent to the mediastinum. Chest Wall: Within normal limits. Abdomen: Liver: There is hyperattenuating fluid presumably representing blood within the right upper quadrant surrounding the liver. There is no definite evidence of laceration. Bile Ducts: Normal caliber. Gallbladder: No calcified gallstones. Normal caliber wall. Pancreas: within normal limits. Spleen: within normal limits. Adrenals: within normal limits. Kidneys: within normal limits. Pelvis: Reproductive Organs: No pelvic masses. Ureters: within normal limits. Bladder: within normal limits. Bowel: Normal caliber. There is a normal appendix in the right lower quadrant. Mesenteric Lymph Nodes: No enlarged mesenteric lymph nodes. Peritoneum: Blood products are noted in the right upper quadrant, left upper quadrant, in the mesentery, and within the pelvis. Vessels: There is a hematoma in the mesentery within the midline of the lower abdomen with contrast extravasation emanating from the distal branches of the superior mesenteric artery suggesting transection or rupture of the superior mesenteric artery with active hemorrhage. Retroperitoneum: within normal limits. Abdominal Wall: within normal limits. Bones: within normal limits. 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 Blood products are noted in the right upper quadrant, left upper quadrant, in the mesentery, and within the pelvis. There is no evidence of fracture. There is a tiny pneumothorax anteriorly in the right upper chest with droplets of gas adjacent to the mediastinum. There is dependent atelectasis. Findings were communicated with Dr. Peterson at 3:21 PM on 04/08/2023. Impression dictated by: Naga Orlando M.D.04/08/2023 3:23 PM Dictation Location: [place] [address] Transcribed By: AMADOR 04/08/23 1523 Dictated By: Naga Orlando II, MD 04/08/23 1506 Signed By: 04/08/23 1523 Normal [facility] CT cervical spine wo conon 0 04-08-2023 CT cervical spine wo con [facility] [place] [address] [place] [address] CT Scan Report Signed Patient: Eduarda Williamson MR#: [id number] : 1990 Acct:[id number] Age/Sex: 32 / M ADM Date: 04/08/23 Loc: ER Room: Type: PRE ER Attending Dr: Copies to: Leonides Walker DO Ordering Provider: Leonides Walker DO Date of Service: 04/08/23 CT/CT cervical spine wo con: traumatic injury ([id number]) CT/CT head/brain wo con: traumatic injury CT head/brain wo con, CT cervical spine wo con 04/08/2023 2:37 PM SIGNS AND SYMPTOMS: Pain in left wrist and forearm, right femur pain, fall TECHNIQUE:Multi-detector CT axial slices of the brain and cervical spine were obtained without IV contrast. Helical,sagittal, coronal, and 3-D reconstructions of the cervical spine were performed. CT was performed with one or more of the following dose reduction techniques: Automated exposure control, adjustment of the mA and/or kV according to patient size, or use of iterative reconstruction technique. COMPARISON: None. FINDINGS: Noncontrast head CT: There is no shift of the midline structures, acute intracranial bleeding, mass effects, or evidence of acute ischemia. The ventricular system is normal in size. There is a cavum septa pellucida. The brainstem and the cerebellum are unremarkable. The visualized intraorbital contents and the infratemporal soft tissues show no acute abnormality. There is mucosal thickening in the right maxillary sinus. The osseous structures in the skull base and the calvarium show no abnormality. Cervical spine: There is preservation of the vertebral body heights. 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 No fractures or dislocations are seen. The alignment of the cervical spine is normal. The craniocervical junction and atlantoaxial joint are within normal limits. The prevertebral soft tissues are within normal limits. The paraspinous soft tissues are within normal limits. There are nonspecific areas of groundglass attenuation in the upper lobes. There is a tiny right-sided pneumothorax. CT/CT head/brain wo con IMPRESSION: No acute intracranial pathology. No acute cervical spine injury. There is a tiny right-sided pneumothorax. There are nonspecific areas of groundglass attenuation in the upper lobes. Impression dictated by: Naga Orlando M.D.04/08/2023 3:06 PM Dictation Location: [place] [address] Transcribed By: AMADOR 04/08/23 1506 Dictated By: Naga Orlando II, MD 04/08/23 1452 Signed By: 04/08/23 1506 [facility] CTA CHEST/ABD/PELVIS W/on CTA CHEST/ABD/PELVIS W/ EXAMINATION: CTA CHEST/ABD/PELVIS W/ 04/08/2023 05:42 PM CLINICAL HISTORY: Fall more than 10 feet ASSOCIATED DIAGNOSIS: Fall more than 10 feet ORDERING PROVIDER: TIARA HAJI TECHNOLOGISTS NOTE: Patient had contrast at outside hospital prior to this scan COMPARISON: CT BODY IMAGE IMPORT(ADRIAN) 04/08/2023, 2:54 PM TECHNIQUE: Contiguous axial collimated imaging was performed of the chest abdomen and pelvis from the thoracic inlet through the pubic symphysis following bolus administration of intravenous contrast. Coronal and sagittal multiplanar reconstructions and sagittal and coronal 3D maximum intensity projections were reconstructed from the axial data. Before infusion of intravenous contrast, radiology personnel investigated the possibility of an allergic history and of any history of reaction to iodinated contrast material. Contrast Protocol: Omnipaque 350 >or =100lb 100 ml <100 lb 1 ml per 1 lb. INTRA-PROCEDURE MEDS: iohexol (OMNIPAQUE) 350 MG/ML injection 100 mL Route: Intravenous Push FINDINGS: CTA CHEST VESSELS: The thoracic aorta is normal caliber with no evidence of acute abnormality. CTA ABDOMEN VESSELS Celiac axis: No significant stenosis. SMA: No significant stenosis. NATASHA: No significant stenosis. Right renal vessels: No significant stenosis. Left renal vessels: No significant stenosis. Infrarenal aorta: No significant stenosis. CTA PELVIC VESSELS R. Common iliac artery: No significant stenosis. R. External iliac artery: No significant stenosis. R. Internal iliac artery: No significant stenosis. L. Common iliac artery: No significant stenosis. L. External iliac artery: No significant stenosis. L. Internal iliac artery: No significant stenosis. NON-VASCULAR FINDINGS Heart : Unremarkable Mediastinum/Pericardium: Residual thymus is present. Pleura: Unremarkable Central Airways: Widely patent. Lungs: No focal consolidation. Mild dependent atelectasis. Nodules: No nodules are present that require follow up. Lymph Nodes: No thoracic lymphadenopathy is evident. Hepatobiliary: Unremarkable liver without biliary dilation evident. Pancreas: Unremarkable Spleen: Unremarkable Adrenal Glands: Unremarkable Kidneys, ureters, and bladder: No calculi or hydroureteronephrosis. A Carney catheter is present with balloon inflated in the bladder lumen. GI tract: No evidence of obstruction. Peritoneum and retroperitoneum: There is a 2.3 x 2.2 cm rounded structure in the right lower quadrant mesentery on series 5 image 220 most compatible with a hematoma, previously measuring 2.4 x 2.3 cm. This is adjacent to the distal portion of the superior mesenteric artery. There is no evidence of active arterial extravasation. There is a relatively mild-moderate amount of hemoperitoneum which is slightly increased compared to the study dated 04/08/2023 at 2:58 PM. For example, there is blood around the inferior margin of the liver and around the spleen. There is blood in the pelvis on series 5 image 259. No free air. Some of the hematoma touches bowel loops. Lymph Nodes: No abdominal or pelvic lymphadenopathy is evident. Visualized musculoskeletal structures: No destructive osseous lesion is identified. IMPRESSION: 1. Stable 2.3 x 2.2 cm focal hematoma in the right lower quadrant mesentery consistent with traumatic mesenteric hematoma. There is no evidence of active vascular contrast extravasation. 2. There is a relatively mild/moderate amount of hemoperitoneum which is slightly increased compared to the prior study of 04/08/2023 at 2:58 PM. 3. Some of the hemoperitoneum abuts bowel loops. There is no other direct evidence of bowel injury. A follow-up CT abdomen and pelvis with IV and oral contrast can be considered in 12-24 hours for increased sensitivity. 4. There is no pneumothorax on this study, although the right lung apex is limited due to streak artifact from contrast bolus. MACRO: None Normal The [employer] [facility] CTA Chest vessels and Abdomi nal vessels and Pelvis vessels W contrast IVOrdered By: Juan Daniel Hernandes on 04-08-2023 CT DLP 2532.7 (mGy.cm) [facility] Work Phone: CT Series Entire body,Entire body,Entire body,Entire body,Entire body [employer] Work Phone: CTDI VOL 5.3 (mGy),36.2 (mGy) ,12.3 (mGy),11.2 (mGy),12.3 (mGy) [employer] Work Phone: PHANTOM TYPE IEC Body Dosimetry Phantom,IEC Body Dosimetry Phantom,IEC Body Dosimetry Phantom,IEC Body Dosimetry Phantom,IEC Body Dosimetry Phantom [employer] Work Phone: [employer] Work Phone: CTA Chest vessels and Abdomi nal vessels and Pelvis vessels W contrast [place] 04-08-2023 EXAMINATION: CTA CHEST/ABD/PELVIS W/ 04/08/2023 05:42 PM CLINICAL HISTORY: Fall more than 10 feet ASSOCIATED DIAGNOSIS: Fall more than 10 feet ORDERING PROVIDER: TIARA HAJI TECHNOLOGISTS NOTE: Patient had contrast at outside hospital prior to this scan COMPARISON: CT BODY IMAGE IMPORT(ADRIAN) 04/08/2023, 2:54 PM TECHNIQUE: Contiguous axial collimated imaging was performed of the chest abdomen and pelvis from the thoracic inlet through the pubic symphysis following bolus administration of intravenous contrast. Coronal and sagittal multiplanar reconstructions and sagittal and coronal 3D maximum intensity projections were reconstructed from the axial data. Before infusion of intravenous contrast, radiology personnel investigated the possibility of an allergic history and of any history of reaction to iodinated contrast material. Contrast Protocol: Omnipaque 350 >or =100lb 100 ml <100 lb 1 ml per 1 lb. INTRA-PROCEDURE MEDS: iohexol (OMNIPAQUE) 350 MG/ML injection 100 mL Route: Intravenous Push FINDINGS: CTA CHEST VESSELS: The thoracic aorta is normal caliber with no evidence of acute abnormality. CTA ABDOMEN VESSELS Celiac axis: No significant stenosis. SMA: No significant stenosis. NATASHA: No significant stenosis. Right renal vessels: No significant stenosis. Left renal vessels: No significant stenosis. Infrarenal aorta: No significant stenosis. CTA PELVIC VESSELS R. Common iliac artery: No significant stenosis. R. External iliac artery: No significant stenosis. R. Internal iliac artery: No significant stenosis. L. Common iliac artery: No significant stenosis. L. External iliac artery: No significant stenosis. L. Internal iliac artery: No significant stenosis. NON-VASCULAR FINDINGS Heart : Unremarkable Mediastinum/Pericardium: Residual thymus is present. Pleura: Unremarkable Central Airways: Widely patent. Lungs: No focal consolidation. Mild dependent atelectasis. Nodules: No nodules are present that require follow up. Lymph Nodes: No thoracic lymphadenopathy is evident. Hepatobiliary: Unremarkable liver without biliary dilation evident. Pancreas: Unremarkable Spleen: Unremarkable Adrenal Glands: Unremarkable Kidneys, ureters, and bladder: No calculi or hydroureteronephrosis. A Carney catheter is present with balloon inflated in the bladder lumen. GI tract: No evidence of obstruction. Peritoneum and retroperitoneum: There is a 2.3 x 2.2 cm rounded structure in the right lower quadrant mesentery on series 5 image 220 most compatible with a hematoma, previously measuring 2.4 x 2.3 cm. This is adjacent to the distal portion of the superior mesenteric artery. There is no evidence of active arterial extravasation. There is a relatively mild-moderate amount of hemoperitoneum which is slightly increased compared to the study dated 04/08/2023 at 2:58 PM. For example, there is blood around the inferior margin of the liver and around the spleen. There is blood in the pelvis on series 5 image 259. No free air. Some of the hematoma touches bowel loops. Lymph Nodes: No abdominal or pelvic lymphadenopathy is evident. Visualized musculoskeletal structures: No destructive osseous lesion is identified. IMPRESSION: 1. Stable 2.3 x 2.2 cm focal hematoma in the right lower quadrant mesentery consistent with traumatic mesenteric hematoma. There is no evidence of active vascular contrast extravasation. 2. There is a relatively mild/moderate amount of hemoperitoneum which is slightly increased compared to the prior study of 04/08/2023 at 2:58 PM. 3. Some of the hemoperitoneum abuts bowel loops. There is no other direct evidence of bowel injury. A follow-up CT abdomen and pelvis with IV and oral contrast can be considered in 12-24 hours for increased sensitivity. 4. There is no pneumothorax on this study, although the right lung apex is limited due to streak artifact from contrast bolus. MACRO: None RADIOLOGY Juan Daniel Hernandes MD - 04/08/2023 EXAMINATION: CTA CHEST/ABD/PELVIS W04/08/2023 05:42 PM CLINICAL HISTORY: Fall more than 10 feet ASSOCIATED DIAGNOSIS: Fall more than 10 feet ORDERING PROVIDER: TIARA HAJI TECHNOLOGISTS NOTE: Patient had contrast at outside hospital prior to this scan COMPARISON: CT BODY IMAGE IMPORT(ADRIAN) 04/08/2023, 2:54 PM TECHNIQUE: Contiguous axial collimated imaging was performed of the chest abdomen and pelvis from the thoracic inlet through the pubic symphysis following bolus administration of intravenous contrast. Coronal and sagittal multiplanar reconstructions and sagittal and coronal 3D maximum intensity projections were reconstructed from the axial data. Before infusion of intravenous contrast, radiology personnel investigated the possibility of an allergic history and of any history of reaction to iodinated contrast material. Contrast Protocol: Omnipaque 350 >or =100lb 100 ml <100 lb 1 ml per 1 lb. INTRA-PROCEDURE MEDS: iohexol (OMNIPAQUE) 350 MG/ML injection 100 mL Route: Intravenous Push FINDINGS: CTA CHEST VESSELS: The thoracic aorta is normal caliber with no evidence of acute abnormality. CTA ABDOMEN VESSELS Celiac axis: No significant stenosis. SMA: No significant stenosis. NATASHA: No significant stenosis. Right renal vessels: No significant stenosis. Left renal vessels: No significant stenosis. Infrarenal aorta: No significant stenosis. CTA PELVIC VESSELS R. Common iliac artery: No significant stenosis. R. External iliac artery: No significant stenosis. R. Internal iliac artery: No significant stenosis. L. Common iliac artery: No significant stenosis. L. External iliac artery: No significant stenosis. L. Internal iliac artery: No significant stenosis. NON-VASCULAR FINDINGS Heart : Unremarkable Mediastinum/Pericardium: Residual thymus is present. Pleura: Unremarkable Central Airways: Widely patent. Lungs: No focal consolidation. Mild dependent atelectasis. Nodules: No nodules are present that require follow up. Lymph Nodes: No thoracic lymphadenopathy is evident. Hepatobiliary: Unremarkable liver without biliary dilation evident. Pancreas: Unremarkable Spleen: Unremarkable Adrenal Glands: Unremarkable Kidneys, ureters, and bladder: No calculi or hydroureteronephrosis. A Carney catheter is present with balloon inflated in the bladder lumen. GI tract: No evidence of obstruction. Peritoneum and retroperitoneum: There is a 2.3 x 2.2 cm rounded structure in the right lower quadrant mesentery on series 5 image 220 most compatible with a hematoma, previously measuring 2.4 x 2.3 cm. This is adjacent to the distal portion of the superior mesenteric artery. There is no evidence of active arterial extravasation. There is a relatively mild-moderate amount of hemoperitoneum which is slightly increased compared to the study dated 04/08/2023 at 2:58 PM. For example, there is blood around the inferior margin of the liver and around the spleen. There is blood in the pelvis on series 5 image 259. No free air. Some of the hematoma touches bowel loops. Lymph Nodes: No abdominal or pelvic lymphadenopathy is evident. Visualized musculoskeletal structures: No destructive osseous lesion is identified. IMPRESSION: 1. Stable 2.3 x 2.2 cm focal hematoma in the right lower quadrant mesentery consistent with traumatic mesenteric hematoma. There is no evidence of active vascular contrast extravasation. 2. There is a relatively mild/moderate amount of hemoperitoneum which is slightly increased compared to the prior study of 04/08/2023 at 2:58 PM. 3. Some of the hemoperitoneum abuts bowel loops. There is no other direct evidence of bowel injury. A follow-up CT abdomen and pelvis with IV and oral contrast can be considered in 12-24 hours for increased sensitivity. 4. There is no pneumothorax on this study, although the right lung apex is limited due to streak artifact from contrast bolus. MACRO: None [facility] Calcium [Mass/volume] in Ser um or PlasmaOrdered By: Leonides Walker on 04-08-2023 Calcium [Mass/Vol] 9.4 mg/dL 8.6-10.3 [facility] Cannabinoids [Presence] in U rine by Screen methodOrdered By: Leonides Walker on 04-08-2023 Cannabinoids Screen Ql (U) Negative Negative [facility] Comment on above: These are unconfirme d results and should not be used for legal purposes. Drug Cut-Off Concentration: AMPH 1000 ng/mL SHIRLENE 200 ng/mL AJAY 200 ng/mL COCM 300 ng/mL OP 300 ng/mL PCP 25 ng/mL THC 20 ng/mL Carbon dioxide, total [Moles /volume] in Serum or PlasmaOrdered By: Leonides Walker on 04-08-2023 CO2 [Moles/Vol] 21.2 mmol/L 21.0-31.0 [facility] Chloride [Moles/volume] in S sha or PlasmaOrdered By: Leonides Walker on 04-08-2023 Chloride [Moles/Vol] 106 mmol/L 98-107 [facility] Complete Blood Count Auto Di ffon 04-08-2023 Basophils (Bld) [#/Vol] 0.2 10*3/uL Normal 0.0-0.2 [facility] Comment on above: Result Comment: PERF ORMED BY: [place] [address] PATHOLOGIST [employer] ZENY CURRIE M.D. Performed By: #### P T, CBC, CK, CMP, PTT, ETOH, LIPASE #### [address] Basophils/100 WBC (Bld) 1.5 % Normal . [facility] Comment on above: Performed By: #### P T, CBC, CK, CMP, PTT, ETOH, LIPASE #### [address] Eosinophils (Bld) [#/Vol] 0.1 10*3/uL Normal 0.0-0.45 [facility] Comment on above: Performed By: #### P T, CBC, CK, CMP, PTT, ETOH, LIPASE #### [address] Eosinophils/100 WBC (Bld) 1.2 % Normal . [facility] Comment on above: Performed By: #### P T, CBC, CK, CMP, PTT, ETOH, LIPASE #### [address] Erythrocyte distribution width (RBC) [Ratio] 13.8 % Normal 12.0-14.8 [facility] Comment on above: Performed By: #### P T, CBC, CK, CMP, PTT, ETOH, LIPASE #### [address] Hematocrit (Bld) [Volume fraction] 41.7 % Normal 38.8-50.0 [facility] Comment on above: Performed By: #### P T, CBC, CK, CMP, PTT, ETOH, LIPASE #### [address] [address] [place] Hemoglobin (Bld) [Mass/Vol] 13.9 g/dL Normal 13.0-17.0 [facility] Comment on above: Performed By: #### P T, CBC, CK, CMP, PTT, ETOH, LIPASE #### [address] Lymphocytes (Bld) [#/Vol] 3.9 10*3/uL Normal 1.00-4.8 [facility] Comment on above: Performed By: #### P T, CBC, CK, CMP, PTT, ETOH, LIPASE #### [address] Lymphocytes/100 WBC (Bld) 36.0 % Normal . [facility] Comment on above: Performed By: #### P T, CBC, CK, CMP, PTT, ETOH, LIPASE #### [address] MCH (RBC) [Entitic mass] 28.6 pg Normal 27.5-35.2 [facility] Comment on above: Performed By: #### P T, CBC, CK, CMP, PTT, ETOH, LIPASE #### [address] MCV (RBC) [Entitic vol] 85.5 fL Normal 83.5-101 [facility] Comment on above: Performed By: #### P T, CBC, CK, CMP, PTT, ETOH, LIPASE #### [address] Mean Corpuscular HGB Conc 33.4 g/dL Normal 32.5-35.6 [facility] Comment on above: Performed By: #### P T, CBC, CK, CMP, PTT, ETOH, LIPASE #### [address] Monocytes (Bld) [#/Vol] 0.7 10*3/uL Normal 0.0-0.8 [facility] Comment on above: Performed By: #### P T, CBC, CK, CMP, PTT, ETOH, LIPASE #### [address] Monocytes/100 WBC (Bld) 16.89 % Normal 0.00-20.00 [facility] Comment on above: Performed By: #### P T, CBC, CK, CMP, PTT, ETOH, LIPASE #### [address] Monocytes/100 WBC (Bld) 6.9 % Normal . [facility] Comment on above: Performed By: #### P T, CBC, CK, CMP, PTT, ETOH, LIPASE #### [address] Neutrophils (Bld) [#/Vol] 5.8 10*3/uL Normal 1.8-7.7 [facility] Comment on above: Performed By: #### P T, CBC, CK, CMP, PTT, ETOH, LIPASE #### [address] Neutrophils/100 WBC (Bld) 54.4 % Normal . [facility] Comment on above: Performed By: #### P T, CBC, CK, CMP, PTT, ETOH, LIPASE #### [address] NRBC% 0.1 /100{WBC} Normal 0-0.5 [facility] Comment on above: Performed By: #### P T, CBC, CK, CMP, PTT, ETOH, LIPASE #### [address] Platelet mean volume (Bld) [Entitic vol] 7.5 fL Normal 6.6-10.1 [facility] Comment on above: Performed By: #### P T, CBC, CK, CMP, PTT, ETOH, LIPASE #### [address] Platelets (Bld) [#/Vol] 270 10*3/uL Normal 150-450 [facility] Comment on above: Performed By: #### P T, CBC, CK, CMP, PTT, ETOH, LIPASE #### [address] [place] [address] [place] RBC (Bld) [#/Vol] 4.88 10*6/uL Normal 3.90-5.60 [facility] Comment on above: Performed By: #### P T, CBC, CK, CMP, PTT, ETOH, LIPASE #### [address] WBC (Bld) [#/Vol] 10.7 10*3/uL High 4.1-10.5 [facility] Comment on above: Performed By: #### P T, CBC, CK, CMP, PTT, ETOH, LIPASE #### [address] Comprehensive Metabolic Pane airam 04-08-2023 Albumin [Mass/Vol] 4.2 g/dL Normal 3.5-5.7 [facility] Comment on above: Performed By: #### P T, CBC, CK, CMP, PTT, ETOH, LIPASE #### [address] Albumin/Globulin [Mass ratio] 1.8 {ratio} Normal [facility] Comment on above: Performed By: #### P T, CBC, CK, CMP, PTT, ETOH, LIPASE #### [address] ALP [Catalytic activity/Vol] 66 U/L Normal 34-104 [facility] Comment on above: Performed By: #### P T, CBC, CK, CMP, PTT, ETOH, LIPASE #### [address] ALT [Catalytic activity/Vol] 57 U/L High 7-52 [facility] Comment on above: Performed By: #### P T, CBC, CK, CMP, PTT, ETOH, LIPASE #### [address] Anion gap [Moles/Vol] 14.7 mmol/L Normal 6.0-15.0 [facility] Comment on above: Performed By: #### P T, CBC, CK, CMP, PTT, ETOH, LIPASE #### [facility] [address] AST [Catalytic activity/Vol] 41 U/L High 13-39 [facility] Comment on above: Performed By: #### P T, CBC, CK, CMP, PTT, ETOH, LIPASE #### [address] Bilirubin [Mass/Vol] 0.4 mg/dL Normal 0.3-1.0 [facility] Comment on above: Performed By: #### P T, CBC, CK, CMP, PTT, ETOH, LIPASE #### [address] Calcium [Mass/Vol] 9.4 mg/dL Normal 8.6-10.3 [facility] Comment on above: Performed By: #### P T, CBC, CK, CMP, PTT, ETOH, LIPASE #### [address] Chloride [Moles/Vol] 106 mmol/L Normal 98-107 [facility] Comment on above: Performed By: #### P T, CBC, CK, CMP, PTT, ETOH, LIPASE #### [address] CO2 [Moles/Vol] 21.2 mmol/L Normal 21.0-31.0 [facility] Comment on above: Performed By: #### P T, CBC, CK, CMP, PTT, ETOH, LIPASE #### [address] Creatinine [Mass/Vol] 0.91 mg/dL Normal 0.70-1.30 [facility] Comment on above: Performed By: #### P T, CBC, CK, CMP, PTT, ETOH, LIPASE #### [address] Creatinine Clr Calc Pharmacy 152.91 Normal [facility] Comment on above: Performed By: #### P T, CBC, CK, CMP, PTT, ETOH, LIPASE #### [address] GFR/1.73 sq M.predicted MDRD (S/P/Bld) [Vol rate/Area] mL/min/{1.73_m2} [facility] Comment on above: Performed By: #### P T, CBC, CK, CMP, PTT, ETOH, LIPASE #### [facility] [address] Globulin (S) [Mass/Vol] 2.3 g/dL [facility] Comment on above: Performed By: #### P T, CBC, CK, CMP, PTT, ETOH, LIPASE #### [facility] [address] Glucose [Mass/Vol] 95 mg/dL Normal 70-100 [facility] Comment on above: Result Comment: [facility] Glucose Reference Range is dependent on time and content of last meal. Glucose of more than 200 mg/dL in a nonstressed, ambulatory subject supports the diagnosis of Diabetes Mellitus. ADA recommended reference range Performed By: #### P T, CBC, CK, CMP, PTT, ETOH, LIPASE #### [facility] [address] Potassium [Moles/Vol] 3.9 mmol/L Normal 3.5-5.1 [facility] Comment on above: Performed By: #### P T, CBC, CK, CMP, PTT, ETOH, LIPASE #### [facility] [address] Protein [Mass/Vol] 6.5 g/dL Normal 6.4-8.9 [facility] Comment on above: Performed By: #### P T, CBC, CK, CMP, PTT, ETOH, LIPASE #### [facility] [address] [place] [address] [place] Sodium [Moles/Vol] 138 mmol/L Normal 136-145 [facility] Comment on above: Performed By: #### P T, CBC, CK, CMP, PTT, ETOH, LIPASE #### [facility] [address] Urea nitrogen [Mass/Vol] 13 mg/dL Normal 7-25 [facility] Comment on above: Performed By: #### P T, CBC, CK, CMP, PTT, ETOH, LIPASE #### [facility] [address] Creatine Kinaseon 04-08-2023 CK [Catalytic activity/Vol] 166 U/L Normal 30-223 [facility] Comment on above: Result Comment: PERF ORMED BY: [place] [address] PATHOLOGIST [employer] ZENY CURRIE M.D. Performed By: #### P T, CBC, CK, CMP, PTT, ETOH, LIPASE ####[facility] Creatine kinase [Enzymatic a ctivity/volume] in Serum or PlasmaOrdered By: Leonides Walker on 04-08-2023 CK [Catalytic activity/Vol] 166 U/L 30- [facility] Creatinine [Mass/volume] in Serum or PlasmaOrdered By: Leonides Walker on 04-08-2023 Creatinine [Mass/Vol] 0.91 mg/dL 0.70-1.30 [facility] Drug Screen,Urineon 04-08-19 24 Amphetamine Screen,Urine Negative Normal Negative [facility] Comment on above: Performed By: #### U RDS ####[place] [id number] [address] Barbiturate Screen,Urine Negative Normal Negative [facility] Comment on above: Performed By: #### U RDS ####[address] Benzodiazepines Screen,Urine Negative Normal Negative [facility] Comment on above: Performed By: #### U RDS ####[address] Cannabinoid Screen,Urine Negative Normal Negative [facility] Comment on above: Result Comment: Thes e are unconfirmed results and should not be used for legal purposes. Drug Cut-Off Concentration: AMPH 1000 ng/mL SHIRLENE 200 ng/mL AJAY 200 ng/mL COCM 300 ng/mL OP 300 ng/mL PCP 25 ng/mL THC 20 ng/mL PERFORMED BY: [facility] [address] [place] [address] PATHOLOGIST [employer] ZENY CURRIE M.D. Performed By: #### U RDS ####[facility] [place] [id number] [facility] Cocaine Screen,Urine Negative Normal Negative [facility] Comment on above: Performed By: #### U RDS ####[facility] [place] [id number] [facility] Opiate Screen,Urine Positive High Negative [facility] Comment on above: Performed By: #### U RDS ####[place] [id number] [address] Phencyclidine Screen,Urine Negative Normal Negative [facility] Comment on above: Performed By: #### U RDS ####[place] [id number] [facility] ECG 12 lead ECGon 04-08-2023 ECG 12 lead ECG [facility] [address] [place] [address] [place] [address] Electrocardiograph Report Signed Patient: Eduarda Williamson MR#: [id number] : 1990 Acct:[id number] Age/Sex: 32 / M ADM Date: 04/08/23 Loc: ER Room: Type: [facility] ER Attending Dr: Ordering Provider: Leonides Walker DO Date of Service: 04/08/2310/22/1434 ECG/ECG 12 lead ECG: TRAUMA Copies to: Test Reason : Blood Pressure : 133/083 mmHG Vent. Rate : 096 BPM Atrial Rate : 096 BPM P-R Int : 156 ms QRS Dur : 100 ms QT Int : 334 ms P-R-T Axes : 057 087 007 degrees QTc Int : 421 ms Normal sinus rhythm Confirmed by Leonides WALKER DO ([id number]) on 04/08/2023 4:53:54 PM Referred By: Electronically Signed By:Leonides WALKER DO Transcribed By: MUS Signed By Leonides Walker DO 0 04/08/23 1653 Normal [facility] ED Provider Noteson 04-08-19 [employer] Authentication Interface Message Text -- Attestation signed by Jarrod Chandler MD at 04/09/2023 4:06 PM ATTENDING NOTE I saw and evaluated the patient. I personally obtained the ortez and critical portions of the history and physical exam. I reviewed the resident's documentation and discussed the patient with the resident. I agree with the resident's medical decision making as documented in the resident's note. Jarrod Chandler MD -- EMERGENCY DEPARTMENT - VISIT NOTE ---- HISTORY OF PRESENT ILLNESS BASIC INJURY INFORMATION: Level of activation: Category 2 Trauma Mode of transport: Life Flight Mechanism of injury: Fall from height or stairs Complicating features: Not applicable Protective measures: Not applicable Date of Injury: 04/09/23 Time of Injury: Earlier today Patient origin: Transfer from outside facility - [employer] The history is provided by the Patient and MLF. Eduarda Williamson is a 32 year old male presenting to the ED for fall from 30ft. Patient was working on [employer] pole when he fell and landed on his back on concrete, denies LOC. 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 MLF reports patient tachycardic, otherwise vss en route. 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 Anticoagulation/Antiplatel et use: denies --------- REVIEW OF SYSTEMS ROS: Negative other than as noted in HPI PAST HISTORY Pertinent Past History: Per pt, previously healthy w/o sig PMH Pertinent Social History: Denies EtOH, drug use today PHYSICAL EXAM PRIMARY SURVEY: Airway: Airway intact Breathing: Breath Sounds: Bilateral breath sounds Circulation: Pulses: Bilateral radial AND DP pulses equal AND palpable Skin: Warm AND dry Disability: Pupils: Pupils equal and reactive GCS: Best Eyes: 4 Best Verbal: 5 Best Motor: 6 Total: 15 SECONDARY SURVEY: Vitals Recorded in This Encounter 04/08/2023 1830 04/08/2023199904/08/2023 2200 04/09/2023 0000 04/09/2023 0035 BP: 135/76 137/92 131/70 133/67 -- Pulse: 104 106 105 95 -- Resp: 19 17 18 16 -- SpO2: 99 % 96 % 97 % 96 % -- Pain Score: -- -- -- -- Asleep Neurologic: Strength and sensation grossly intact in bilateral upper and lower extremities. Moves all extremities spontaneously. HEENT: Head: Small L forehead cephalohematoma. No Baldwin's sign or racoon eyes. Face: Midface stable Eyes: PERRL. Conjugate gaze. Gaze crosses midline. Ears: No hemotympanum bilaterally Nose: No obvious deformity or deviation. No nasal septal hematoma. Mouth: No evidence of intraoral trauma. Small abrasion L lower lip. Neck: Trachea midline. No midline cervical tenderness. No cervical step-offs or deformities. Chest: No clavicular or chest wall tenderness. No crepitus. No external evidence of trauma. Pulmonary: Breath sounds clear AND equal bilaterally. No flail chest. Cardiovascular: Tachycardic AND reg rhythm. No murmur Abdomen: Diffusely TTP, most prominent RUQ . No ecchymosis or external evidence of trauma other than small, superficial abrasion over RUQ. Pelvis/Perineum: Pelvis stable to compression. No blood at urethral meatus. Carney in place. Musculoskeletal: Back/Spine: Low thoracic spine TTP. No lumbar tenderness. No thoracic or lumbar step-offs or deformities. Extremities: RUE: No gross deformity, full pROM, no TTP LUE: Splinted on arrival. Ttp mid forearm with associated edema at this area AND ecchymoses. No open wounds. Remains with good pulses throughout extremity. SILT. pROM intact throughout. Compartments soft. RLE: No gross deformity, ROM limited by pain, hip and thigh TTP LLE: No gross deformity, full pROM, no TTP Adjunct Studies: None -------- ED COURSE IN [place] -------- 165. BP: 143/127. HR: 103. SpO2: 94. RR 15. 1657. BP: 147/82. HR: 102. SpO2: 98. RR 19. 1659. +FAST in LUQ and RUQ, not definitive in suprapubic region 1700. BP: 129/91. HR: 107. SpO2: 97. RR 18. 1703. BP: 133/81. HR: 103. SpO2: 97. RR 18. Consultations: Trauma is at bedside and assisted with evaluation and formulation of plan. SCRIBE ATTESTATION 04/09/2023, 1:30 AM. This note is prepared by Libby Rolon acting as Scribe for Nona Hutchison. All medical record entries made by the Scribe were at my direction and personally dictated by me. I have reviewed the rec (more content not included)... Normal [facility] ED Triage Noteson 04-08-2023 [employer] Authentication Interface Message Text Prehospital Medications: TXA Dilaudid Zofran Normal [facility] [employer] Authentication Interface Message Text 32 y/o M fall off telephone pole aprox 30 ft. [facility] Normal [facility] ETHANOL, SERUMon 04-08-2023 Ethanol [Mass/Vol] mg/dL Normal None Detected [facility] Comment on above: Performed By: #### L ACT #### [facility] [address] [place] [address], [id number] Ethanol [Mass/Vol] mg/dL None Detected mg/dL [facility] [place] Eosinophils Auto (Bld) [#/Vo l]Ordered By: Leonides Walker on 04-08-2023 Eosinophils (Bld) [#/Vol] 0.1 10*3/uL 0.0-0.45 [facility] Eosinophils/100 WBC Auto (Bl d)Ordered By: Leonides Walker on 04-08-2023 Eosinophils/100 WBC (Bld) 1.2 % . [facility] Erythrocyte distribution wid th Auto (RBC) [Ratio]Ordered By: Leonides Walker on 04-08-2023 Erythrocyte distribution width (RBC) [Ratio] 13.8 % 12.0-14.8 [facility] Ethanol [Mass/volume] in Ser um or PlasmaOrdered By: Leonides Walker on 04-08-2023 Ethanol [Mass/Vol] mg/dL [facility] Ethanol [Mass/Vol] TNP [facility] Comment on above: Test not performed Ethyl Alcohol Profileon Ethanol [Mass/Vol] mg/dL Normal [facility] Comment on above: Performed By: #### P T, CBC, CK, CMP, PTT, ETOH, LIPASE #### [facility] [address] [place] [address] [place] Percent Ethanol Not performed Normal [facility] Comment on above: Result Comment: PERF ORMED BY: [facility] [address] [facility] [place] [address] PATHOLOGIST [employer] F[employer] ZENY CURRIE M.D. Performed By: #### P T, CBC, CK, CMP, PTT, ETOH, LIPASE #### [facility] [address] [place] [id number] [place] Fresh Frozen Plasmaon 2023 Fresh Frozen Plasma ISSUED 04/08/23 1548 Normal [facility] Globulin Calc (S) [Mass/Vol] Ordered By: Leonides Walker on 04-08-2023 Globulin (S) [Mass/Vol] 2.3 g/dL [facility] Glucose [Mass/volume] in Ser um or PlasmaOrdered By: Leonides Walker on 04-08-2023 Glucose [Mass/Vol] 95 mg/dL 70-100 [facility] Comment on above: ADA recommended refe rence rangeRandom Glucose Reference Range is dependent on time and content of last meal. Glucose of more than 200 mg/dL in a nonstressed, ambulatory subject supports the diagnosis of Diabetes Mellitus. H AND Matty 04-08-2023 [employer] Authentication Interface Message Text [facility] Department of Surgery Division of Trauma Surgery, Acute Care Surgery, Critical Care, and [place] TRAUMA SURGERY HISTORY AND PHYSICAL Eduarda Williamson [id number] BASIC INJURY INFORMATION: Level of activation: Category 2 Trauma Mode of transport: Life Flight Mechanism of injury: Fall from height or stairs Complicating features: Not applicable Protective measures: Not applicable Date of Injury: 04/08/23 Time of Injury: Morning Patient origin: Transfer from outside facility HISTORY OF PRESENT INJURY: Eduarda Williamson is a 32 year old male (healthy) [facility]. 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 On arrival to ED, he is alert, stable, and complaining of abdominal pain/discomfort and left arm pain. Denies loss of consciousness. 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 His left arm was placed in a sugar tong splint at OSH which was removed on arrival. Denies any formal reduction at OSH. He did not receive any blood products. Carney in place. Outside images obtained: CT head, c-spine, C/A/P Loss of consciousness: No Initial interventions: None Hemodynamic status in ED: None applicable PRIMARY SURVEY: Airway: Intact Breathing: Normal Breath Sounds: Breath sounds equal bilaterally. Circulation: Pulses: Normal Skin: Normal skin color, texture, and turgor. No rashes or lesions. Disability: Pupils: PERRL GCS: Best Eyes: 4 Best Verbal: 5 Best Motor: 6 Total: 15 SECONDARY SURVEY: Vitals: BP 133/81 Pulse (!) 105 Temp 98.5 ???F (36.9 ???C) (Oral) Resp 17 SpO2 97% Neurologic: Alert and oriented, appropriate, moves all extremities. Strength symmetrical, no sensory deficits. HEENT: Head: No lacerations, bone step-offs, or abrasions; midface stable to palpation. Laceration to left lip with dried blood but hemostatic. Eyes: PERRLA, conjunctiva/corneas without lesions. Patient reports he is wearing contacts. Ears: No hemotympanum Nose: Septum midline, no crepitus with motion. Throat: Oral cavity without trauma. Neck: No midline tenderness, lacerations, or wounds Chest: No crepitus or pain with palpation; no abrasions or contusions; no gross deformities Pulmonary: Breath sounds clear, symmetrical; no wheezes, rales, or consolidation Cardiovascular: Pulses: Bilateral radial, DP pulses are normal. Abdomen: Tender when palpating RUQ, abrasion to right upper quadrant , soft, non-peritonitic Rectal: No gross blood noted. Pelvis/Perineum: Pelvis is stable to palpation Musculoskeletal: Back/Spine: No step-off or deformity noted and Tender upon palpation of lower thoracic spine Extremities: Left UPPER extremity abnormality: tender over mid forearm with swelling, early ecchymosis forming . No open wounds. Additional exam findings: None FAST EXAM: Positive - perihepatic and perisplenic fluid PAST MEDICAL HISTORY: None PAST SURGICAL HISTORY: No previous surgeries. PRE-ADMISSION MEDICATIONS: Patient denies taking any medications. Anti-platelet use: No Anti-coagulant use: No ALLERGIES: NKDA SOCIAL HISTORY: Endorses tobacco use (< 1 ppd), < 2 EtOH drinks per week, and no other drug use Living status: Home Primary language: Mauritanian Functional status: Independent Impairments: None Assistive Devices Used: None FAMILY HISTORY: The patient's family history is non-contributory to this acute trauma. REVIEW OF SYSTEMS: Constitutional: Negative Eyes: Negative Ears/Nose/Mouth/Throat: Positive Respiratory: Negative Cardiovascular: Negative Gastrointestinal: Positive Genitourinary: Negative Musculoskeletal: Positive Neurologic: Negative Psychiatric: Negative Skin/Breast: Negative Endocrine: Negative Rheumatologic: Negative Allergic/Immunologic: Negative Significant positives: ENT, MSK, GI BASIC LABS No results found for this or any previous visit. RADIOLOGY: CXR: Pending CT HEAD (from OSH): Findings: No acute intracranial pathology. No acute cervical spine injury. There is a tiny right-sided pneumothorax. There are nonspecific areas of groundglass attenuation in the upper lobes. CT C/A/P (from OSH): Findings: Impression: There is a hematoma in the mesentery within the midline of the lower abdomen with contrast extravasation emanating from the distal branches of the SMA suggesting transection or rupture of the SMA with active hemorrhage. Blood products are noted in the RUQ, LUQ , in the mesentery, and within the pelvis. There is no evidence of fracture. There is a tiny pneumothorax anteriorly in the right upper chest with droplets of gas adjacent to the mediastinum. There is dependent atelectasis. CTA C/A/P: IMPRESSION: 1. Stable 2.3 x 2.2 cm focal hematoma in the right lower miguel (more content not included)... Normal [facility] HEPATIC FUNCTION PANELon Albumin [Mass/Vol] 4.3 g/dL Normal 3.5-5.7 [facility] Comment on above: Order Comment: Note updated reference ranges. Performed By: #### L ACT #### [facility] [address] [place], [id number] ALK 68 IU/L Normal 34-104 [facility] Comment on above: Order Comment: Note updated reference ranges. Performed By: #### L ACT #### [facility] [address] [facility], [place], ALT [Catalytic activity/Vol] 70 U/L High 7-[address] [facility] Comment on above: Order Comment: Note updated reference ranges. Performed By: #### L ACT #### [facility] [address] [place] [address], AST [Catalytic activity/Vol] 49 U/L High 13-[address] [facility] Comment on above: Order Comment: Note updated reference ranges. Performed By: #### L ACT #### [facility] [address] [place] [address], Bilirubin [Mass/Vol] 0.4 mg/dL Normal 0.3-1.0 [facility] Comment on above: Order Comment: Note updated reference ranges. Performed By: #### L ACT #### [facility] [address] [place] [address], Bilirubin.direct [Mass/Vol] 0.08 mg/dL Normal 0.03-0.[address] [facility] Comment on above: Order Comment: Note updated reference ranges. Performed By: #### L ACT #### [facility] [address] [place] [address], Protein [Mass/Vol] 6.6 g/dL Normal 6.0-8.[address] [facility] Comment on above: Order Comment: Note updated reference ranges. Performed By: #### L ACT #### [facility] [address] [place] [address], Albumin [Mass/Vol] 4.3 g/dL 3.5 - 5.7 g/dL [facility] ALP [Catalytic activity/Vol] 68 U/L [facility] ALT [Catalytic activity/Vol] 70 U/L High [facility] AST [Catalytic activity/Vol] 49 U/L High [facility] Bilirubin [Mass/Vol] 0.4 mg/dL 0.3 - 1 .0 mg/dL [facility] Bilirubin.direct [Mass/Vol] 0.08 mg/dL 0.03 - 0.18 mg/dL [facility] Interpretation and review of laboratory results Abnormal [facility] Protein [Mass/Vol] 6.6 g/dL 6.0 - 8.3 g/dL [facility] Note updated referen ce ranges. [facility] HIV 1 and 2 Ab and HIV 1 p24 Ag panel IAon 04-08-2023 HIV 1+2 Ab+HIV1 p24 Ag IA Ql Non-Reactive Non-Reacti ve [facility] Comment on above: No laboratory eviden ce for HIV Infection. Negative result does not rule out acute HIV infection. If acute HIV infection is suspected, recommend ordering an HIV-1 RNA quanitification test. Interpretation and review of laboratory results Normal [facility] HIV Information: [place] Rev. code 3701.243(E): This information has been disclosed to you from confidential records protected from disclosure by state law. You shall make no further disclosure of this information without the specific, written, and informed release of the individual to whom it pertains, or as otherwise permitted by state law. A general authorization for the release of medical or other information is not sufficient for the purpose of the release of HIV test results or diagnoses. [facility] HIV1 HIV2 AGAB SCRNon 2023 HIV AG-AB SCREEN Non-Reactive Normal Non-Reacti ve [facility] Comment on above: Order Comment: HIV I nformation: ???[place] Rev. code 3701.243(E):This information has been disclosed to you from confidential records protected from disclosure by state law. ???You shall make no further disclosure of this information without the specific, written, and informed release of the individual to whom it pertains, or as otherwise permitted by state law. ???A general authorization for the release of medical or other information is not sufficient for the purpose of the release of HIV test results or diagnoses. Result Comment: No l aboratory evidence for HIV Infection. Negative result does not rule out acute HIV infection. If acute HIV infection is suspected, recommend ordering an HIV-1 RNA quanitification test. Performed By: #### L ACT #### [facility] [address] [place], [address] Hematocrit Auto (Bld) [Volum e fraction]Ordered By: Leonides Walker on 04-08-2023 Hematocrit (Bld) [Volume fraction] 41.7 % 38.8-50.0 [facility] Hemoglobin [Mass/volume] in BloodOrdered By: Leonides Walker on 04-08-2023 Hemoglobin (Bld) [Mass/Vol] 13.9 g/dL 13.0-17.0 [facility] INR in Platelet poor plasma by Coagulation assayOrdered By: Leonides Walker on 04-08-2023 INR Coag (PPP) [Relative time] 0.9 {INR} [facility] Comment on above: INR Therapeutic Rang e A) Pre- and Peroperative OAT started two weeks before surgery. NOT HIP SURGERY: 1.5 - 2.5 HIP SURGERY: 2 - 3B) Primary and secondary prevention of venous THROMBOSIS: 2 - 3C) Active venous thrombosis, pulmonary embolismand prevention of recurrent venous thrombosis: 2 - 3D) Prevention of arterial thromboembolismincluding patients with mechanical heart valves: 3 - 4.5 LACTIC ACIDon 04-08-2023 CR LACT 1.6 mmol/L Normal 0.5-1.6 [facility] [place], [facility] Comment on above: Performed By: #### L ACT #### [facility] [address] [place] [address], LACTIC ACIDOrdered By: Thiago Landaverde on 04-08-2023 Interpretation and review of laboratory results Normal [facility] Lactate [Moles/Vol] 1.6 mmol/L 0.5 - 1. 6 mmol/L [facility] LIPASEon 04-08-2023 LIP 8 IU/L Normal <128 [facility] Comment on above: Performed By: #### L ACT #### [facility] [address] [place] [address], Lipase [Catalytic activity/Vol] 8 U/L [facility] Laboratory - Blood bankon ABO and Rh group Nom (Bld) Blood group O Rh(D) positive [facility] LeukoReduced RBCon LeukoReduced RBC NOT AVAILABLE Normal [facility] Leukocyte Reduced RBCon Leukocyte Reduced RBC ASSIGNED Normal [facility] Comment on above: Result Comment: PERF ORMED BY: [facility] [address] [place] [address] PATHOLOGIST LIFESTYLE BLOCK FARMER ZENY CURRIE M.D. Leukocytes [#/volume] correc sánchez for nucleated erythrocytes in Blood by Automated counOrdered By: Leonides Walker on 04-08-2023 WBC corrected for nucl RBC Auto (Bld) [#/Vol] 10.7 10*3/uL 4.1-10.5 [facility] Lipaseon 04-08-2023 Lipase [Catalytic activity/Vol] 16.0 U/L Normal 11.0-82.0 [facility] Comment on above: Result Comment: PERF ORMED BY: [place] [address] PATHOLOGIST LIFESTYLE BLOCK FARMER ZENY CURRIE M.D. Performed By: #### P T, CBC, CK, CMP, PTT, ETOH, LIPASE #### [facility] [address] Lipase [Enzymatic activity/v olume] in Serum or PlasmaOrdered By: Leonides Walker on 04-08-2023 Lipase [Catalytic activity/Vol] 16.0 U/L 11.0-82.0 [facility] Lymphocytes Auto (Bld) [#/Vo l]Ordered By: Leonides Walekr on 04-08-2023 Lymphocytes (Bld) [#/Vol] 3.9 10*3/uL 1.00-4.8 [facility] Lymphocytes/100 WBC Auto (Bl d)Ordered By: Leonides Walker on 04-08-2023 Lymphocytes/100 WBC (Bld) 36.0 % . [facility] MCH Auto (RBC) [Entitic mass ]Ordered By: Leonides Walker on 04-08-2023 MCH (RBC) [Entitic mass] 28.6 pg 27.5-35.2 [facility] MCHC Auto (RBC) [Mass/Vol]Or dered By: Leonides Walker on 04-08-2023 MCHC (RBC) [Mass/Vol] 33.4 g/dL 32.5-35.6 [facility] MCV Auto (RBC) [Entitic vol] Ordered By: Leonides Walker on 04-08-2023 MCV (RBC) [Entitic vol] 85.5 fL 83.5-101 [facility] Monocyte distribution width [Entitic volume] in Blood by AutomatedOrdered By: Leonides Walker on 04-08-2023 Monocyte distribution width Auto (Bld) [Entitic vol] 16.89 % 0.00-20.00 [facility] Monocytes Auto (Bld) [#/Vol] Ordered By: Leonides Walker on 04-08-2023 Monocytes (Bld) [#/Vol] 0.7 10*3/uL 0.0-0.8 [facility] Monocytes/100 WBC Auto (Bld) Ordered By: Leonides Walker on 04-08-2023 Monocytes/100 WBC (Bld) 6.9 % . [facility] Neutrophils Auto (Bld) [#/Vo l]Ordered By: Leonides Walker on 04-08-2023 Neutrophils (Bld) [#/Vol] 5.8 10*3/uL 1.8-7.7 [facility] Neutrophils/100 WBC Auto (Bl d)Ordered By: Leonides Walker on 04-08-2023 Neutrophils/100 WBC (Bld) 54.4 % . [facility] No Panel Informationon 04-08 Radiology Study observation (narrative) [facility] Interpretation and review of laboratory results Normal [facility] Interpretation and review of laboratory results Normal [facility] Radiology Study observation (narrative) [facility] No Panel InformationOrdered By: Leonides Walker on 04-08-2023 Estimated GFR (CKD-EPI) > 60.0 mL/Min [facility] Creatinine Clearance (Chem 152.91 [facility] Nucleated erythrocytes [Pres ence] in Blood by Automated countOrdered By: Leonides Walker on 04-08-2023 Nucleated RBC Auto Ql (Bld) 0.1 /100{WBC} 0-0.5 [facility] Opiates [Presence] in Urine by Screen methodOrdered By: Leonides Walker on 04-08-2023 Opiates Screen Ql (U) Positive Negative Fir [facility] PARTIAL THROMBOPLASTIN TIMEo n 04-08-2023 aPTT Coag (Bld) [Time] 26 s Normal 25-37 Th [facility] Comment on above: Performed By: #### L ACT #### [facility] [address] [place], [address] aPTT Coag (Bld) [Time] 26 s [facility] PROTHROMBIN TIME AND INRon 0 04-08-2023 INR Coag (PPP) [Relative time] 0.94 {INR} Normal 0.90-1.10 [facility] Comment on above: Performed By: #### L ACT #### [facility] [address] [place], [place], PT Coag (PPP) [Time] 10.5 s Normal 9.7-12.9 [facility] Comment on above: Performed By: #### L ACT #### [facility] [address] [place], [place], INR Coag (PPP) [Relative time] 0.94 {INR} 0.90 - 1.10 [facility] PT Coag (PPP) [Time] 10.5 s [facility] Partial Thromboplastin Timeo n 04-08-2023 aPTT Coag (Bld) [Time] 27.4 s Normal 25.1-36.5 [facility] Comment on above: Result Comment: A he matocrit value greater than 55% may lead to inaccurate results in coagulation testing. Patients having hematocrit values >55% require a special collection tube for coagulation studies. Please contact the laboratory at [phone] for redraw instructions. PERFORMED BY: [place] [address] PATHOLOGIST LIFESTYLE BLOCK FARMER ZENY CURRIE M.D. Performed By: #### P T, CBC, CK, CMP, PTT, ETOH, LIPASE #### [facility] [address] [place] [address] Phencyclidine Screen Ql (U)O rdered By: Leonides Walker on 04-08-2023 Phencyclidine Ql (U) Negative Negative [facility] Platelet mean volume Auto (B ld) [Entitic vol]Ordered By: Leonides Walker on 04-08-2023 Platelet mean volume (Bld) [Entitic vol] 7.5 fL 6.6-10.1 [facility] Platelets Auto (Bld) [#/Vol] Ordered By: Leonides Walker on 04-08-2023 Platelets (Bld) [#/Vol] 270 10*3/uL 150-450 [facility] Potassium [Moles/volume] in Serum or PlasmaOrdered By: Leonides Walker on 04-08-2023 Potassium [Moles/Vol] 3.9 mmol/L 3.5-5.1 [facility] Progress Noteson 04-08-2023 [employer] Authentication Interface Message Text [facility] Department of Surgery Division of Trauma Surgery, Acute Care Surgery, Critical Care, and [place] TRAUMA SURGERY HISTORY AND PHYSICAL Eduarda Williamson [id number] ASSESSMENT: Eduarda Williamson is a 32 year old male , with no significant PMH, who presents as a transfer from [facility] after a fall from 30ft from [employer]. INJURIES: 1. Stable 2.3 x 2.2 cm focal hematoma in the right lower quadrant mesentery consistent with traumatic mesenteric hematoma. There is no evidence of active vascular contrast extravasation. 2. There is a relatively mild/moderate amount of hemoperitoneum which is slightly increased compared to the prior study of 04/08/2023 at 2:58 PM. 3. Some of the hemoperitoneum abuts bowel loops. There is no other direct evidence of bowel injury. A follow-up CT abdomen and pelvis with IV and oral contrast can be considered in 12-24 hours for increased sensitivity. 4. There is no pneumothorax on this study, although the right lung apex is limited due to streak artifact from contrast bolus. 5. Comminuted radial shaft fracture PLAN: Admit to Trauma Surgery RNF Unit Neuro: -No pain control at this time Cardiac: Monitor vitals. Pulm: Respiratory assesor protocol GI: NPO but ok for ice chips Serial abdominal exams q4-6h Renal: mIVF No Carney Monitor I AND O Daily BMP- replace PRN Heme: No indication for transfusion at this time AM CBC Endo: No glycemic issues at this time. ID: No indication for antibiotics at this time. MSK: Ortho consult for L midshaft radius fracture; recommendations pending CTLS cleared Progressive mobility protocol PT/OT Prophylaxis: Hold chemoprophylaxis for now SCDs No indication for stress ulcer prophylaxis at this time. Final ED disposition: RNF Follow up: TBD Patient discussed with Attending Trauma Surgeon, Dr. Rosa Porter, DO Teaching Physician Note: I saw and evaluated the patient. I personally obtained the ortez and critical portions of the history and physical exam. I reviewed the resident's documentation and discussed the patient with the resident. I agree with the resident's medical decision making as documented in the resident's note. Mesenteric hematoma no extrav Hematoma abuts bowel Admit for serial exams--ok for ice chips given lower suspicion for injury Kathryn Lee MD Normal [facility] [employer] Authentication Interface Message Text CAT 2 Pt is a 32yo M presenting to ED via [facility] as [facility] s/p fall 30ft from ladder at work, L ulnar fracture, -thinners, -LOC. 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 Pt denies LOC. [facility], where he was diagnosed with small R pneumothorax and L ulnar fracture. SW called pt's mother Lacho Williamson [phone] to provide update on pt status. Lacho is on the way to ED and will be visiting shortly. PLAN: Pending. Jeniffer Hernandez, RECORDS MANAGEMENT ANALYST, ROVING MARKER, [place] ED Water Supply Engineer Normal [facility] Protein [Mass/volume] in Ser um or PlasmaOrdered By: Leonides Walker on 04-08-2023 Protein [Mass/Vol] 6.5 g/dL 6.4-8.9 [facility] Prothrombin Time INRon 04-08 INR Coag (PPP) [Relative time] 0.9 {INR} Normal [facility] Comment on above: Result Comment: INR Therapeutic Range A) Pre- and Peroperative OAT started two weeks before surgery. NOT HIP SURGERY: 1.5 - 2.5 HIP SURGERY: 2 - 3 B) Primary and secondary prevention of venous THROMBOSIS: 2 - 3 C) Active venous thrombosis, pulmonary embolism and prevention of recurrent venous thrombosis: 2 - 3 D) Prevention of arterial thromboembolism including patients with mechanical heart valves: 3 - 4.5 Performed By: #### P T, CBC, CK, CMP, PTT, ETOH, LIPASE #### [facility] [address] [place] [address] PT Coag (PPP) [Time] 10.6 s Normal 9.0-12.9 [facility] Comment on above: Result Comment: A he matocrit value greater than 55% may lead to inaccurate results in coagulation testing. Patients having hematocrit values >55% require a special collection tube for coagulation studies. Please contact the laboratory at [phone] for redraw instructions. Performed By: #### P T, CBC, CK, CMP, PTT, ETOH, LIPASE #### [facility] [address] Prothrombin time (PT)Ordered By: Leonides Walker on 04-08-2023 PT Coag (PPP) [Time] 10.6 s 9.0-12.9 [facility] Comment on above: A hematocrit value g reater than 55% may lead to inaccurate results in coagulation testing. Patients having hematocrit values >55% require a special collection tube for coagulation studies. Please contact the laboratory at [phone] for redraw instructions. RBC Auto (Bld) [#/Vol]Ordere d By: Leonides Walker on 04-08-2023 RBC (Bld) [#/Vol] 4.88 10*6/uL 3.90-5.60 [facility] Serum or plasma albumin/glob ulin mass ratioOrdered By: Leonides Walker on 04-08-2023 Albumin/Globulin [Mass ratio] 1.8 {ratio} [facility] Serum or plasma anion gap de terminationOrdered By: Leonides Walker on 04-08-2023 Anion gap [Moles/Vol] 14.7 mmol/L 6.0-15.0 [facility] Sodium [Moles/volume] in Ser um or PlasmaOrdered By: Leonides Walker on 04-08-2023 Sodium [Moles/Vol] 138 mmol/L 136-145 [facility] TYPE AND SCREENon 04-08-2023 ABO and Rh group Nom (Bld) Blood group O Rh(D) positive Normal [facility] Comment on above: Performed By: #### L ACT #### [facility] [address] [place] [address], ABO and Rh group Nom (Bld) No Previous Results Normal [facility] Comment on above: Performed By: #### L ACT #### [facility] [address] [place], [place], ABSC INT Negative Normal [facility] Comment on above: Performed By: #### L ACT #### [facility] [address] [place], [address] ABO and Rh group Nom (Bld) Blood group O Rh(D) positive [facility] ABO and Rh group Nom (Bld) No Previous Results [facility] Blood group antibody screen Ql Negative [facility] Type and Screenon 04-08-2023 ABO and Rh group Nom (Bld) Blood group O Rh(D) positive Normal [facility] Comment on above: Result Comment: PERF ORMED BY: [facility] [address] [place] [address] PATHOLOGIST LIFESTYLE BLOCK FARMER ZENY CURRIE M.D. Urea nitrogen [Mass/volume] in Serum or PlasmaOrdered By: Leonides Walker on 04-08-2023 Urea nitrogen [Mass/Vol] 13 mg/dL 09-22 [facility] WBC Auto (Bld) [#/Vol]Ordere d By: Leonides Walker on 04-08-2023 WBC (Bld) [#/Vol] 10.7 10*3/uL 4.1-10.5 [facility] XR CHEST AP OR PA 1 VIEWon 0 04-08-2023 XR CHEST AP OR PA 1 VIEW EXAMINATION: XR CHEST AP OR PA 1 VIEW 04/08/2023 06:51 PM CLINICAL HISTORY: preop clearance ASSOCIATED DIAGNOSIS: preop clearance ORDERING PROVIDER: ABDELRAHMAN LOVE NOTE: COMPARISON: CTA CHEST/ABD/PELVIS W/ 04/08/2023, 5:44 PM FINDINGS: Lines, tubes, and devices: Overlying cardiac monitoring leads. Lungs and pleura: No focal pulmonary consolidation, effusion or pneumothorax. Lung volumes are low, causing crowding of the bronchovascular structures at the lung bases. Cardiomediastinal silhouette: The cardiomediastinal silhouette is prominent in size and likely exaggerated by AP technique. Musculoskeletal: No acute osseous abnormality. IMPRESSION: Low lung volumes and bibasilar atelectasis. No acute cardiopulmonary abnormality identified. MACRO: None Normal [facility] XR Chest Single viewon 04-08 EXAMINATION: XR CHES T AP OR PA 1 VIEW 04/08/2023 06:51 PM CLINICAL HISTORY: preop clearance ASSOCIATED DIAGNOSIS: preop clearance ORDERING PROVIDER: ABDELRAHMAN MARIE TECHNBEE NOTE: COMPARISON: CTA CHEST/ABD/PELVIS W/ 04/08/2023, 5:44 PM FINDINGS: Lines, tubes, and devices: Overlying cardiac monitoring leads. Lungs and pleura: No focal pulmonary consolidation, effusion or pneumothorax. Lung volumes are low, causing crowding of the bronchovascular structures at the lung bases. Cardiomediastinal silhouette: The cardiomediastinal silhouette is prominent in size and likely exaggerated by AP technique. Musculoskeletal: No acute osseous abnormality. IMPRESSION: Low lung volumes and bibasilar atelectasis. No acute cardiopulmonary abnormality identified. MACRO: None RADIOLOGY Michele Joseph M D - 04/08/2023 EXAMINATION: XR CHEST AP OR PA 1 VIEW 04/08/2023 06:51 PM CLINICAL HISTORY: preop clearance ASSOCIATED DIAGNOSIS: preop clearance ORDERING PROVIDER: ABDELRAHMAN LOVE NOTE: COMPARISON: CTA CHEST/ABD/PELVIS W/ 04/08/2023, 5:44 PM FINDINGS: Lines, tubes, and devices: Overlying cardiac monitoring leads. Lungs and pleura: No focal pulmonary consolidation, effusion or pneumothorax. Lung volumes are low, causing crowding of the bronchovascular structures at the lung bases. Cardiomediastinal silhouette: The cardiomediastinal silhouette is prominent in size and likely exaggerated by AP technique. Musculoskeletal: No acute osseous abnormality. IMPRESSION: Low lung volumes and bibasilar atelectasis. No acute cardiopulmonary abnormality identified. MACRO: None [facility] XR ELBOW LEFT MINIMUM 3 VIEW Son 04-08-2023 XR ELBOW LEFT MINIMUM 3 VIEWS EXAMINATION: XR ELBOW LEFT MINIMUM 3 VIEWSPRO/LT 04/08/2023 06:51 PM CLINICAL HISTORY: fall from height ASSOCIATED DIAGNOSIS: ORDERING PROVIDER: ADALI HIDALGO TECHNBEE NOTE: COMPARISON: None IMPRESSION: Partially visualized comminuted radial shaft fracture, dedicated forearm radiographs are recommended. No significant joint effusion. The joint spaces are maintained. There is no radiopaque foreign body. Left elbow MACRO: None Normal [facility] XR Elbow - left Viewson EXAMINATION: XR ELBO W LEFT MINIMUM 3 VIEWSPRO/LT 04/08/2023 06:51 PM CLINICAL HISTORY: fall from height ASSOCIATED DIAGNOSIS: ORDERING PROVIDER: ADALI HIDALGO TECHNBEE NOTE: COMPARISON: None IMPRESSION: Partially visualized comminuted radial shaft fracture, dedicated forearm radiographs are recommended. No significant joint effusion. The joint spaces are maintained. There is no radiopaque foreign body. Left elbow MACRO: None Michele Bañuelos M D - 04/08/2023 EXAMINATION: XR ELBOW LEFT MINIMUM 3 VIEWSPRO/LT 04/08/2023 06:51 PM CLINICAL HISTORY: fall from height ASSOCIATED DIAGNOSIS: ORDERING PROVIDER: ADALI LOVE NOTE: COMPARISON: None IMPRESSION: Partially visualized comminuted radial shaft fracture, dedicated forearm radiographs are recommended. No significant joint effusion. The joint spaces are maintained. There is no radiopaque foreign body. Left elbow MACRO: None [facility] XR WRIST LEFT MINIMUM 3 VIEW Son 04-08-2023 XR WRIST LEFT MINIMUM 3 VIEWS EXAMINATION: XR WRIST LEFT MINIMUM 3 VIEWSPRO/LT 04/08/2023 06:51 PM CLINICAL HISTORY: fall from height ASSOCIATED DIAGNOSIS: ORDERING PROVIDER: ADALI LOVE NOTE: COMPARISON: None IMPRESSION: No acute left wrist fracture or dislocation is identified. The joint spaces are maintained. There is no radiopaque foreign body. Left wrist MACRO: None Normal [facility] XR Wrist - left 3 Viewson EXAMINATION: XR WRIS T LEFT MINIMUM 3 VIEWSPRO/LT 04/08/2023 06:51 PM CLINICAL HISTORY: fall from height ASSOCIATED DIAGNOSIS: ORDERING PROVIDER: ADALI LOVE NOTE: COMPARISON: None IMPRESSION: No acute left wrist fracture or dislocation is identified. The joint spaces are maintained. There is no radiopaque foreign body. Left wrist MACRO: None Michele Bañuelos M D - 04/08/2023 EXAMINATION: XR WRIST LEFT MINIMUM 3 VIEWSPRO/LT 04/08/2023 06:51 PM CLINICAL HISTORY: fall from height ASSOCIATED DIAGNOSIS: ORDERING PROVIDER: ADALI LOVE NOTE: COMPARISON: None IMPRESSION: No acute left wrist fracture or dislocation is identified. The joint spaces are maintained. There is no radiopaque foreign body. Left wrist MACRO: None [facility] XR Wrist - left 3 ViewsOrder ed By: Michele Joseph on 04-08-2023 [facility] [place] Work Phone: XR femur RT 2V*on 04-08-2023 XR femur RT 2V* [facility] Main [address] [address] XRay Report Signed Patient: Eduarda Williamson MR#: [id number] : 1990 Acct:[id number] Age/Sex: 32 / M ADM Date: 04/08/23 Loc: ER Room: Type: [facility] ER Attending Dr: Copies to: Leonides Walker DO Ordering Provider: Leonides Walker DO Date of Service: 04/08/23 XR/XR femur RT 2V*: TRAUMATIC INJURY XR femur RT 2V* 04/08/2023 2:37 PM SIGNS AND SYMPTOMS: Fall with right hip pain PROTOCOL: Frontal and lateral radiograph of the right knee COMPARISON: None FINDINGS: The weightbearing and patellofemoral joint spaces are preserved. There is no fracture. There is prepatellar soft tissue swelling. No joint effusion. XR/XR femur RT 2V* IMPRESSION: No acute bony injury. Soft tissue swelling is noted in the prepatellar soft tissues. Impression dictated by: Naga Orlando M.D.04/08/2023 3:35 PM Dictation Location: [place] [address] Transcribed By: [facility] 04/08/231534 Dictated By: Naga Orlando II, MD 04/08/231533 Signed By: 04/08/23 1535 Normal [facility] XR forearm LT 2V*on 04-08-19 XR forearm LT 2V* [facility] Main [address] [address] XRay Report Signed Patient: Eduarda Williamson MR#: [id number] : 1990 Acct:[id number] Age/Sex: 32 / M ADM Date: 04/08/23 Loc: ER Room: Type: [facility] ER Attending Dr: Copies to: Leonides Walker DO Ordering Provider: Leonides Walker DO Date of Service: 04/08/23 XR/XR forearm LT 2V*: TRAUMATIC INJURY XR forearm LT 2V* 04/08/2023 2:37 PM SIGNS AND SYMPTOMS: Fall, pain in left forearm PROTOCOL: Frontal and lateral graphs of the left forearm COMPARISON: None FINDINGS: There is a mildly comminuted and transversely oriented fracture of the midshaft of the radius. The ulna appears to be grossly intact. No significant soft tissue swelling. The visualized wrist and elbow appear to be grossly intact. XR/XR forearm LT 2V* IMPRESSION: There is a mildly comminuted and transversely oriented fracture of the midshaft of the radius. Impression dictated by: Naga Orlando M.D.04/08/2023 4:17 PM Dictation Location: [place] [address] Transcribed By: [facility] 04/08/23 161 Dictated By: Naga Orlando II, MD 04/08/23 161 Signed By: 04/08/231616 Normal [facility] XR hip RT min 2V(w/wo pelvis )*on 04-08-2023 XR hip RT min 2V(w/wo pelvis)* [facility] [place] [address] XRay Report Signed Patient: Eduarda Williamson MR#: [id number] : 1990 Acct:[id number] Age/Sex: 32 / M ADM Date: 04/08/23 Loc: ER Room: Type: [facility] ER Attending Dr: Copies to: Leonides Walker DO Ordering Provider: Leonides Walker DO Date of Service: 04/08/23 XR/XR hip RT min 2V(w/wo pelvis)*: TRAUMATIC INJURY XR hip RT min 2V(w/wo pelvis)* 04/08/2023 2:37 PM SIGNS AND SYMPTOMS: Fall, right hip pain PROTOCOL: Frontal radiograph the pelvis with frontal and crosstable lateral views of the right hip COMPARISON: None FINDINGS: The bony ring of the pelvis is intact. There is no fracture or dislocation. The joint spaces are preserved. Contrast is noted both within the bladder and freely within the pelvis consistent with the known arterial hemorrhage seen on previous abdomen and pelvis CT. XR/XR hip RT min 2V(w/wo pelvis)* IMPRESSION: No fracture or dislocation. Contrast is noted both within the bladder and freely within the pelvis consistent with the known arterial hemorrhage seen on previous abdomen and pelvis CT. Impression dictated by: Naga Orlando M.D.04/08/2023 3:44 PM Dictation Location: [place] [address] Transcribed By: [facility] 04/08/23 154 Dictated By: Naga Orlando II, MD 04/08/231541 Signed By: 04/08/23 154 [facility] Coding Summary.on 11-13-2020 Coding Summary. CD:[id number] Gh0bWw +PGhlYWQ+TN4EVWCyK48wvTHed Q7XM1tIIE3RMUXECKVTXF1HDL1 mnMO2QInwK0GkqwEq FaqxsKCdRM10IOd6GCO9zRbuEI gjwD0juSFcI3u6PzPrTR35nZ29 OZoqCMHmSoL0JsKfcdbvhAMl J8gkGfFdoJTgKor+PHRhYmxlIH kqIAUpLNvhGRPmFkWrtHjeGB1r Ge7gXEVkRVHatYxcnOLfDpOz j3rxJSVcOXqaUO4bqNtyU8QieE E3OVHqr5x9Cw12iRK+PHRkIHN0 hCjcJGzeq537LiZoe5kePMS6 pUTxXYhsOQG0X92jb8M0YZMgEZ AmQJD5vRJ3bE8krUobzymnN9Ii aHToPkF9JSR3xDRkiK0ncHzo zuafwL7uKar+G46RBO0PCMGVCF 8HZzn2J7IiYhgkfHX+EN33RUGx NT68zAUjzWBhd6ekbRu3UmKf LNIeIJB4bZdfQFrvz9EmXPWxS9 9paEOxu8F3WRHmwCtwhAIdCbSb yYB9oA1hJSagxaphv5giurfu Oouwl1hrwz93nJ51X13zCRiaFI QtQXS2ONGcREPukFgwhc2tjM6s Ii8+VIijx9bza6kyhOo5VeZg ZEJadmPvwLqfKCQ1n7XeTf78S1 YqkRkmw7IhWwb8by08vZTmz3U5 tMG0BUwgAZQuhU3jGFkrAbX6 JRAdFkEhgD23xQAqQRyeEz5rmZ yqzTxhLJ5lDTGmjdecPOLbtT0s WWJgpMNygVewYA7rQSPghrkd b983QsZkTBQ8GPAtxWLwR5UfjQ 5rFrZcWGVuCZWhQ0GbaZOlHSrc V598DYbqNpJ8CEUbtlPiR0Jm UPNpbJxsCxD2e8F6Tf4Er7Eszw qyNRK3RZbaRIC0CtI2MsGkBqQ0 A8HfIdf6OLUvnLdrUP3yX8Zf NCVmrqryfpgxeRG5GFAdFHBzsY 40zHBfDNkwYn1jq6F0t487KQRi GLMpbS10Lg6ksWpvBMEqcSHY pM7zthubb3gbqmhqGvQkXBUtQB c0OAm7CDMzdCprUqCwYSX2FuX6 MLG7gFDzrU7drXnprhagbU9t Oyc+P41ppO7hCGU3QXM6yujdZB QtctJyUN10BC05S1ZuYaixpZJc bGU+MOFmkaPudFpeEQ2eLgWi p1hvb1QrVHahI7RbCPMcYGesZo w9UARfECU7yWS9tJ5qGJBgBGri y2X1hXY2P1MunhMrol6ge4ro CAPkCVjtD66pmAFvs7Z7CUAzrS L3QNJdsYeyZcFojI30Qzx+PGNv eAdig5HeMlezd8qxp9nghCj7 BzEsAWOuzfYphIarBVV7v2WjPp 51K84rHTasDVUhHKWcIVMgGINi oRufnt5pjW0bAa0+PGNvbCB3 jMV2aW4aXXHzYmN1JPjpI953Tb IwnGOaGatbh8ntw2wuhIn5QgBo SYTfmmIqkUzoTJQ8n4HtNc65 A40tKMcfMHKnPUHdTPJeXSGgxL ladp4ilC6jLy8+RZ9pq3jqvl84 pM14cKA+WENeMSP7jNavSWqx OUAhdO2mBIhsIqE1WKTxQtGofN 99iRHnAYdbEi7qbDwolKdkVX7v RAQebywqm084GzWea0ocKMFf gMNvDFxoTSV1S44qy2L7SIBtOD BwWVG4zFK7gC9gkGgexmwqzXFo dKqrwiLvzCsvASxePFwqB419 IHRvcDsnPlBhdGllbnQgTmFtZT f3J0AyJqg2CCLuuFrpCQ8kgIJk UTlyPu1vuXgmbCqgDQ2eUANs icqvs500UbEqo1byMQMdsTIpOH rtELP1R04le9N1KVKzVWQiATQ9 xRE6dQ4vjRslpbkmjTMjiZwo dnMmuYmrHBmgACzbB358HWVsnW hwVkJbxeCvDLWpeUN5QT10BU58 qNNlt8N7jLR9Q4VzRBLfvrsv dxhvvXX7CSToISMabF49Tl3tbJ scCm8rDHEsNFX8JFSvcYOlP2Rw bK3lWyUkOXUiGDZjZ8AhiITs MArkR493FXddIbA3MANmxyAfG9 LnHNOzwNgiPhE0z9X1Zk1VU1Q9 BJ56MV86aXPga9E7xCQ2A1Vr TXUqtnwwpfhjqLM1DMOtYQYazJ 35Yp4rwHcrSy4dPHBdWED8MCYv iJAoF9KwnQ0oAuOhAZDcIDVt G1DnwYVqJDhvN648VBzbWrD1EP JnntGhL3QhITGmlAokIbH8c8G8 Wh0FLCc1FJ91FT83gLUuj4E5 lGV8X1LwYMCyuxvspqysdQR8CQ UxMMWypI63Kt8bpCdjJf2oNYLi JGI4DNEhpDIbL9GhoW5iKuWr SAFnNWPwS4TnjMTmKLgqU988MH ibKnB4UVKqxsCeQ7VuRUXloPlz BxU5z3P7Vs1MKQTmZF44CPJ8 pKI2NH39WI03Y2ZyGpaiaPBfrK U+PHRhYmxlIHdpZHRoPScxMDAl EcZqiRljLO9pCe0bSMCiDQFu cEoqyWKxEjGpv5mrOGGhENzfSS 7cbQvmC1NmcHJ8SIKqy3q8Sd36 G87cV4UmzLJ+QZMhnAZ1oZM0 xZ0hDmPoYcV4LBshV677MkMrzX VxHjetu0obq8vhtEm6CwF4LWOl pqQhuXjqMXT0k1YhWi68O92z IHdpZHRoPSIxNSUiIHZhbGlnbj 9juQ1zSp2+CFEqmCU0cVV8kU6m QpNgHkC5TVktJ714YaLsjTVb Euxzw2wlp6gwnFo6HrCaMATwwt AooCllGZW3w0LsMo63Z0HdqRda w2ZvQje5xw06pXMrw2R3uZH1 D7EdPUBkhjkpkEImsUvsFU1mKK IumoyiCEAlwL5nSXBvG1f4UmNe RpE0MAvdR6JogzR5VTHilONt RLwcSRR9M21cv6G2AFEyZYAdXO T4ySE0dZ2hqZaifeqbiHYqbMzu ejVurWehNTkoYCseK373MYIo wCaaNSPaiT5vGJQwiLFdgPqvXM 1bOUNdnvwiLcnLDDyAH6vcSNhC IQKIOMi9C7QsHno1DXRvmWlc QP7qxONrQMhrEi6jwLjgxMhfYU 3jXMLkkfwxMOOepM4dRAUyxYIu fRxkSX5mQIGwjnfju166JhDa MRX4HJMhmAFoC2CmdP0pQwEsJC OhCEMzD4PqmXFzTJahG363HMuk LdJ3JHWsxnJzT0ZxKJQjlPti MvL1z5D9Ly3bNW2oRG9tRRlwQR 12FZ71oMIvf7E6uPL2F0WbTKXn niimhhhqnVL7ILBwXDUpmI93 jMJsDComIm8vl2X0z521DREeHK OhgX13Os3leNtkWMYtgVGDjJ3h vcwth8yeozasRgKoQOSlPKp2 KVl0GTHtdCglGmGpUXZ1MgH3UQ M3aMHplT5naNynlapjdG6kIja+ NoxyYPWlikP5L4NlUgm4ODFk jDysIK7drSPjVNzbDt7bzEuarZ dbLN8qPIHrzkakRXJzpD3fFTOb qTIqsWlfCU5rHRSdzezwp986 HyDuQBJ7PMPyrWGuH7IkwH4bOy NcQPWpONVjJ8GozKOeUJbaH920 PEuaWyR0ZUNywiUqY6VcDJOt mUkfNcU9u6E1Se3GDAycKQ22LP 00kDSlk1M4oSY9G4AcSSTwkggj tatwmYC4WRYiKGRisJ91oZPh VCcqIi2in5V4x087YDPxGEFoqC 13Iv3hpFyuASToeKHMyB4typjp k7ncpfnxLlEiCUOfRVr7PTj8 JLNmmHohHsGcIPU2UwT2HEJ5mU FiwD8xmHzaextcvL2dZam+RW1l ffcjmsC3KN70YQ72D1LiWuaw dGFibGU+PHRhYmxlIHdpZHRoPS vgOZSsHuZdtIgsBZ5gOf3nWCLl HSNdpTcvmCItEtWfp1awBORv RYboGA7nlQzoP7GudVA9SKBav9 g7Fl39W45sN6OrdPR+PGNvbCB3 nZH4oV6oAgHbBsT0AXlcX718 KhAwdJMsGjrlm8bji0rttAz6Ai SzKNAperQpgVwdRSE8k6LeBo04 D40fPKexSACfZIQxUBZqGEKy lDfkxt6cfV6sHk5+IVJkgWB2dF Q2uN6eQnOsHxC9COzwS848KgPn eMSmGgcvB78vC6CowYL+PHRy Tfj3DUCtrQrmYQ1aoCGkIGdtFi 4fMQA9OsDzVwAmQJwcX8JlWEJg evjdeuwyfHU0JXUbFNXefR24 Hj5cuDfqZo2bIYQyFDA4GPNngW MfR5SfaK7eAsAdOTJpONKvZ4Qt oMWiHSxrC327HWkvGuR4PACj hfNyW9NzJXFbzJlhQuL9d1V6Ig 9QhWuywMBeBZ9xSrZoVDg1U4Xy Xqn1YNNjsWliED1wrOVrVObo Uz4idCzidYpgOH7iTHBgybhnd2 27QpIxp9ozGNRdtZOpQIwvAOU6 P74ao0P6PJNiDGOxDGD4xYM4 pW1cdJpiaqpkmFZfsZrwdsWxuH oxUHzbBOycR576KGBwwKwuGvIP Ejs9R9TqUlv1FVMieOuhTX1x uQCiPXyzRm8knZaxoIhhVC2lXR Sdicsnh110GzJma8pzABHalVUz XJikZRN5R19lc2J7PLEkGRCa LBQ2hUA2zM8gyXqifeeduQNbwI jrksTqfUwmZIilGUnoH797UFDo cKkbGa6JIur4D9GyBsk9JBOa nPowBG6dkDOgSOutPx7hdGjrjO seTG5vPAOmvvcaw487ZbSkd5mg VQPdqJDzEZohUVX7B91fi4T1 QRTeXMShXKF2jCP0xO3ffZrcfu ogbGVmdDsgdmVydGljYWwtYWxp J351ULEsiQecZjYasGEiDfht dGQ+QE62or07E6EwPskoDcc0TH VlNWS2rWU9cE2iAEIwPViii2O2 rQP8Y9AaufUemy7bl7axUGAq ZTog (more content not included)... Normal [facility] Discharge Instructionson Discharge Instructions [id number]:127 Normal [facility] ED Note-Physicianon 11-10-19 ED Note-Physician Basic Information Time Seen: Rinku Ruiz PA-C 11/08/2020 18:40 Chief Complaint Pt reports sinus pain and congestion. Dry cough intermittently. Loss taste and smell today, denies SOB/chest pain. History of Present Illness 29-year-old male comes into the ED for evaluation of sinus congestion. Over the last few days patient with sinus congestion, rhinorrhea. Occasional cough. No fever, chills, chest pain or shortness of breath. No nausea or vomiting. He now has loss of taste and smell is concerned for Covid infection. He is otherwise healthy. He does use electronic cigarettes but has no chronic lung disease. No prior treatments. Review of Systems A 10 point review of systems is negative except as noted above. Medical and Surgical History: Reviewed and noted Social history: Lives at home Tobacco: Denies Physical Exam Vitals & Measurements T: 36.9 ?C (Oral) HR: 110(Peripheral) RR: 18 BP: 147/95 SpO2: 100% HT: 177.8 cm HT: 177.8 cm WT: 107.0 kg WT: 107 kg BMI: 33.85 Nurses notes and vital signs reviewed and patient is not hypoxic. General: Well-appearing, does not appear ill Skin: Warm, dry. Head: Atraumatic. Neck: No JVD. Eye: Normal conjunctiva. Ears, Nose, Mouth, and Throat: Sinus congestion, no difficulty with speaking or swallowing Cardiovascular: Not tachycardic Chest wall: Respiratory: Respirations are nonlabored. Back: Normal range of motion. Musculoskeletal: Normal ROM with no gross deformity. Gastrointestinal: Urological: Neurological: Awake and alert. No focal deficits. Follows commands. Psychiatric: Cooperative. Medical Decision Making Patient well-appearing on examination. He is nontoxic. No chest pain or dyspnea. Stable vital signs. Covid test is pending and he is discharged home with self quarantine pending these results. Patient was encouraged to return to the ED if symptoms worsen or change. Assessment/Plan Sinusitis (J32.9: Chronic sinusitis, unspecified) Orders: Rapid COVID Antigen ([facility]) Disposition Plan Patient Discharge Condition Disposition: Discharged home Condition: Improved and stable Counseled: Patient and/or family were counseled to workup, results, treatment plan and follow-up recommendations Discharge Prescription List Prescriptions No active prescription medications Follow-up With When Contact Information Tito Whitney In 3 days 11/11/[address] Business (1) Additional Instructions: Patient Education COVID-19 Attestation Patient seen and evaluated by the physician psychological assistant. Attending physician was present in the emergency department and supervised care. This report was transcribed using voice recognition software. Every effort was made to ensure accuracy, however, inadvertently computerized assembler camper mistakes may be present. Appropriate healthcare PPE was used in evaluating this patient. The patient was placed in a mask. The healthcare provider was wearing mask, gloves, googles and utilizing proper hand hygiene. All equipment was properly cleansed. Problem List/Past Medical History Ongoing No qualifying data Historical No qualifying data Medications Inpatient No active inpatient medications Home No active home medications Allergies No Known Medication Allergies Social History Tobacco - High Risk, 11/08/2020 Current vaping or e-cigarette use Smokeless Tobacco Use:. Vaping, 11/08/2020 Lab Results No qualifying data available. Diagnostic Results No qualifying data available. Normal [facility] Comment on above: Result Comment: Elec tronically Signed By: Joseph BELL, Rinku\.br\Date and Time Signed: 11/08/20 19:11 EDT\.br\Electronically Co-Signed By: Virgilio Song DO\.br\Date and Time Co-Signed: 11/08/20 22:00 EDT Consent for Treatmenton 10-30 Consent for Treatment [id number]:127 Normal [facility] ED Clinical Summaryon 2020 ED Clinical Summary (Inserted Image. Natalee ble to display) [place] [id number] ED Clinical Summary Person Information Name: EDUARDA WILLIAMSON [place] Age: 29 Years : 1990 Sex: Male Language: Mauritanian PCP: Tito Whitney MD Marital Status: Phone: [phone] Visit Id: Visit Reason: Cough; Sinus Pain/Congestion; FEVER, LOSS OF SMELL AND TASTE Speciality: Acuity: 4 Enc Type: Emergency Med Service: Emergency Arrival: 11/08/2020 18:37:36 Discharge: 11/08/2020 19:16:09 LOS: 000 00:39 Checkin: 11/08/2020 18:37:36 Checkout: 11/08/2020 19:16:09 Dispo Type: Home (Routine DC) EVENTS: Event Name Event Status Request Date/Time Start Date/Time Complete Date/Time Arrive Complete 11/08/2020 18:37:36 11/08/2020 18:37:36 11/08/2020 18:37:36 Document Home Meds Request 11/08/2020 18:37:36 Triage Complete 11/08/2020 18:37:36 11/08/2020 18:43:00 11/08/2020 18:43:00 Bed Assign Complete 11/08/2020 18:39:28 11/08/2020 18:39:28 11/08/2020 18:39:28 Dr Exam Complete 11/08/2020 18:39:28 11/08/2020 18:40:54 11/08/2020 18:40:54 RN Exam Complete 11/08/2020 18:39:28 11/08/2020 19:05:18 11/08/2020 19:05:18 Registration Complete 11/08/2020 18:40:54 11/08/2020 18:47:20 11/08/2020 18:47:20 Dr Exam Complete 11/08/2020 18:44:44 11/08/2020 18:44:44 11/08/2020 18:44:44 Reg Complete Request 11/08/2020 18:47:20 Pending Labs Request 11/08/2020 19:08:07 Lab Request 11/08/2020 19:08:07 Discharge Complete 11/08/2020 19:08:18 11/08/2020 19:16:14 11/08/2020 19:16:14 Transfer Complete 11/08/2020 19:16:14 11/08/2020 19:16:14 11/08/2020 19:16:14 ADDRESS: [address] [place] [phone] PHYS DOC NOTES: MEDICAL INFORMATION: Prescriptions Given: PATIENT EDUCATION INFORMATION: Instructions: COVID-19 Follow up: With: Address: When: Tito Whitney [address] [place] [address], [facility] [place] [phone] Business (1) In 3 days 11/11/2020 DIAGNOSIS: Sinusitis Normal [facility] ED Patient Summaryon 021 ED Patient Summary (Inserted Image. Natalee ble to display) [address] [address] Patient Discharge Instructions Person Information Name: EDUARDA WILLIAMSON Age: 29 Years Arrival Date: 11/08/2020 18:37:36 Discharge Diagnosis: Sinusitis Primary Care Physician: Tito Whitney MD Provider Information Primary Provider: Virgilio Song DO [employer] Supervisor:Rinku Ruiz PA-C The exam and treatment you received in the Emergency Department were for an urgent problem and are not intended as complete care. It is important that you follow up with a doctor, nurse practitioner, or physician?s psychological assistant for ongoing care. If your symptoms become worse or you do not improve as expected and you are unable to reach your usual health care provider, you should return to the Emergency Department. We are available 24 hours a day. EDUARDA WILLIAMSON has been given the following list of patient education materials, prescriptions and follow-up instructions: Follow-up Instructions: With: Address: When: Tito Whitney [address] [place] [address], [place] [address] Business (1) In 3 days 11/11/2020 In the event that this physician does not participate in your insurance network, please consult with your insurance company to find a nearby participating provider. Patient Education Materials: COVID-19 A MESSAGE TO ALL PATIENTS REGARDING OPIOIDS PRESCRIPTION OPIOIDS: WHAT YOU NEED TO KNOW Prescription opioids can be used to help relieve dbbnbthh-ny-xnaaek pain and are often prescribed following a surgery or injury, or for certain health conditions. These medications can be an important part of the treatment but also come with serious risks. It is important to work with your healthcare provider to make sure you are getting the safest, most effective care. WHAT ARE THE RISKS AND SIDE EFFECTS OF OPIOID USE? Prescription opioids carry serious risks of addiction and overdose, especially with prolonged use. An opioid overdose, often marked by slowed breathing, can cause sudden . The use of prescription opioids can have a number of side effects as well, even when taken as directed: ? Tolerance?meaning you might need to take more of the medication for the same pain relief ? Physical dependence?meaning you have symptoms of withdrawal when a medication is stopped ? Increased sensitivity to pain ? Constipation ? Nausea, vomiting, and dry mouth ? Sleepiness and dizziness ? Confusion ? Depression ? Low levels of testosterone that can result in lower sex drive, energy, and strength ? Itching and sweating RISKS ARE GREATER WITH: ? History of drug misuse, substance use disorder, or overdose ? Mental health conditions (such as depression or anxiety) ? Sleep apnea ? Older age (65 years and older) ? Avoid alcohol while taking prescription opioids. Also, unless specifically advised by your health care provider, medications to avoid include: ? Benzodiazepines (such as Xanax or Valium) ? Muscle relaxants (such as Soma or Flexeril) ? Hypnotics (such as Ambien or Lunesta) ? Other prescription opioids KNOW YOUR OPTIONS Talk to your health care provider about ways to manage your pain that don?t involve prescription opioids. Some of these options may actually work better and have fewer risks and side effects. Options may include: ? Pain relievers such as acetaminophen, ibuprofen, and naproxen ? Some medication that are also used for depression or seizures ? Physical therapy and exercise ? Cognitive behavioral therapy, a psychological, goal-directed approach, in which patients learn how to modify physical, behavioral, and emotional triggers of pain and stress. IF YOU ARE PRESCRIBED OPIOIDS FOR PAIN: ? Never take opioids in greater amounts or more often than prescribed. ? Follow up with your primary health care provider. o Work together to create a plan on how to manage your pain. o Talk about ways to help manage your pain that don?t involve prescription opioids. o Talk about any and all concerns and side effects. ? Help prevent misuse and abuse o Never sell or share prescription opioids. o Never use another person?s prescription opioids. ? Store prescription opioids in a secure place and out of reach of others (this may include visitors, children, friends, and family). ? Safely dispose of unused prescription opioids: Find your community drug take-back program or your pharmacy mail-back program, or flush them down the toilet, following guidance from the Food and Drug Administration (www.fda.gov/Drugs/Resourc esForYou). ? Visit www.cdc.gov/drugoverdose to learn about the risks of opioids abuse and overdose. ? If you believe you may be struggling with addiction, tell your health spiritual care coordinator and ask for guidance or call [facility]?S National Helpline at 8-636-831-OEAP. v Source: US Department of Health (more content not included)... Normal [facility] Rapid COVID Antigen ([facility])on 11-08-2020 Rapid COV Int NEG Ctl Pass Normal Fis [facility] Comment on above: Performed By: #### 2 [id number] #### [facility] [address] [place] [address] Rapid COV Int POS Ctl Pass Normal [facility] Comment on above: Performed By: #### 2 [id number] #### [facility] [address] [place] [address] SARS-CoV-2 (COVID-19) RNA SYDNEY+probe Ql (Unsp spec) Detected Abnormal Not Detected [facility] Comment on above: Result Comment: Resu lts Called To Chandana Gonzales/Rk By ALL And Read Back For Confirmation On 11/08/2020 19:31:35 EDT Faxed to Barry 11/08/2020 19:31:40 EDT. The Access Mobile Veritor? System for Rapid Detection of SARS-CoV-2 is a chromatographic digital immunoassay intended for the direct and qualitative detection of SARS-CoV-2 nucleocapsid antigens in nasal swabs from individuals who are suspected of COVID-19 by their healthcare provider within the first five days of the onset of symptoms. Negative results should be treated as presumptive, do not rule out SARS-CoV-2 infection and should not be used as the sole basis for treatment or patient management decisions, including infection control decisions. Negative results should be considered in the context of a patient?s recent exposures, history and the presence of clinical signs and symptoms consistent with COVID-19, and confirmed with a molecular assay, if necessary, for patient management. For in vitro diagnostic use. In the [place], only for use under an Emergency Use Authorization. In the [place], this test has not been FDA cleared or approved; this test has been authorized by FDA under an EUA for use by authorized laboratories; use by laboratories certified under the CLIA, 42 U.S.C. ?263a, that meet requirements to perform moderate, high, or waived complexity tests and at the Point of Care (POC), i.e., in patient care settings operating under a CLIA Certificate of Waiver, Certificate of Compliance, or Certificate of Accreditation. This test has been authorized only for the detection of proteins from SARS-CoV-2, not for any other viruses or pathogens; and, in the [place], this test is only authorized for the duration of the declaration that circumstances exist justifying the authorization of emergency use of in vitro diagnostics for detection and/or diagnosis of the virus that causes COVID-19 under Section 564(b)(1) of the Act, 21 U.S.C. ? 360bbb-3(b)(1), unless the authorization is terminated or revoked sooner. Performed By: #### 2 [id number] #### [place] [address] Employed in [facility] Comment on above: Performed By: #### 2 [id number] #### [facility] [address] [place] [address] First Test Unknown Normal [facility] Comment on above: Performed By: #### 2 [id number] #### [facility] [address] [place] [address] Hospitalized? Unknown Normal [facility] Comment on above: Performed By: #### 2 [id number] #### [facility] [address] [place] [address] ICU NO Normal [facility] Comment on above: Performed By: #### 2 [id number] #### [facility] [address] [place] [address] ? NO Normal [facility] Comment on above: Performed By: #### 2 [id number] #### [facility] [address] [place] [address] [facility] NO Normal [facility] Comment on above: Performed By: #### 2 [id number] #### [facility] [address] [place] [address] Symptomatic as defined by CDC YES Normal [facility] Comment on above: Performed By: #### 2 [id number] #### [facility] [address] [place] [address] Vital Signs Date Time Vital Sign Value Performing Clinician Facility 04-14-2023 16:36-0500 Diastolic blood pressure 76 mm[Hg] Carmela Guevara MD Work Phone: [facility] 04-14-2023 16:36-0500 Heart rate 90 /min Carmela Guevara MD Work Phone: [facility] 04-14-2023 16:36-0500 Respiratory rate 16 /min Carmela Guevara MD Work Phone: [facility] 04-14-2023 16:36-0500 SaO2% (BldA) [Mass fraction] 100 % Carmela Guevara MD Work Phone: [facility] 04-14-2023 16:36-0500 Systolic blood pressure 129 mm[Hg] Carmela Guevara MD Work Phone: [employer] 04-14-2023 16:15-0500 Body temperature 97.7 [degF] Carmela Guevara MD Work Phone: [employer] 04-14-2023 12:06-0500 Body height 188 cm Carmela Guevara MD Work Phone: [employer] 04-14-2023 12:06-0500 Body mass index (BMI) [Ratio] 29.4 kg/m2 Carmela Guevara MD Work Phone: [employer] 04-14-2023 12:06-0500 Body weight 103.87 kg Carmela Guevara MD Work Phone: [employer] 04-11-2023 05:09-0500 Body temperature 97.7 [degF] Jarrod Chandler MD Work Phone: [employer] 04-11-2023 05:09-0500 Diastolic blood pressure 76 mm[Hg] Jarrod Chandler MD Work Phone: [employer] 04-11-2023 05:09-0500 Heart rate 76 /min Jarrod Chandler MD Work Phone: [employer] 04-11-2023 05:09-0500 Respiratory rate 15 /min Jarrod Chandler MD Work Phone: [employer] 04-11-2023 05:09-0500 SaO2% (BldA) [Mass fraction] 95 % Jarrod Chandler MD Work Phone: [employer] 04-11-2023 05:09-0500 Systolic blood pressure 136 mm[Hg] Jarrod Chandler MD Work Phone: [employer] 04-10-2023 23:08-0500 Heart rate 101 /min Jarrod Chandler MD Work Phone: [employer] 04-10-2023 10:00-0500 Body height 188 cm Jarrod Chandler MD Work Phone: [employer] 04-10-2023 10:00-0500 Body mass index (BMI) [Ratio] 29.44 kg/m2 Jarrod Chandler MD Work Phone: [facility] 04-10-2023 10:00-0500 Body weight 104.02 kg Jarrod Chandler [facility] 04-08-2023 16:00-0500 Diastolic blood pressure 94 mm[Hg] DO Leonides Keister Work Phone: [facility] 04-08-2023 16:00-0500 Heart rate 91 /min DO Leonides Keister Work Phone: [facility] 04-08-2023 16:00-0500 Respiratory rate 18 /min DO Leonides Walker Work Phone: [facility] 04-08-2023 16:00-0500 SaO2% (BldA) [Mass fraction] 99 % DO Leonides Walker Work Phone: [facility] 04-08-2023 16:00-0500 Systolic blood pressure 150 mm[Hg] DO Leonides Keister Work Phone: [facility] 04-08-2023 15:34-0500 Body temperature 97.8 [degF] DO Leonides Jennifer Work Phone: [facility] 04-08-2023 14:26-0500 Body height 187.96 cm DO Leonides Walker Work Phone: [facility] 04-08-2023 14:26-0500 Body weight 104.4 kg DO Leonides Walker Work Phone: [facility] Encounters Encounter Date Encounter Type Care Provider Facility Start: 04-29-2023 End: 04-29-2023 ambulatory UNKNOWN PROVIDER Facility:[facility] Start: 04-27-2023 ambulatory UNKNOWN PROVIDER [facility] Start: 04-27-2023 End: 04-28-2023 ambulatory UNKNOWN PROVIDER Facility:[facility] Start: 04-14-2023 End: 04-15-2023 ambulatory UNKNOWN PROVIDER Facility:[facility] Start: 04-14-2023 End: 04-14-2023 ambulatory UNKNOWN PROVIDER Facility:[facility] Start: 04-14-2023 Letter encounter Carmela Guevara MD Work Phone: [facility] Start: 04-14-2023 End: 04-14-2023 ambulatory CARMELA GUEVARA Facility:[facility] Start: 04-14-2023 End: 04-14-2023 Subsequent hospital visit by physician Carmela Guevara MD Work Phone: [facility] Comment on above: Post-op pain (Primar y Dx) Start: 04-10-2023 Evaluation and manag ement of inpatient UNKNOWN PROVIDER Facility:[facility] Start: 04-09-2023 Admission to [facility] Carmela Guevara MD Work Phone: [facility] Start: 04-08-2023 End: 04-11-2023 Evaluation and management of inpatient Jarrod Chandler MD Work Phone: [facility] [address] Comment on above: Mesenteric hematoma, initial encounter (Primary Dx); Fall from height of greater than 3 feet; Closed fracture of shaft of left radius, unspecified fracture morphology, initial encounter; Tachycardia, unspecified; Abnormal electrocardiogram (ECG) (EKG); Abnormal electrocardiogram (ECG) (EKG) Start: 04-08-2023 End: 04-08-2023 Emergency department patient visit Leonides Walker Facility:[facility] Start: 04-08-2023 End: 04-08-2023 E.D. Visit Prudence Pat RIVAS [facility] Social Work Comment on above: Trauma/complex Medic al Situation Start: 04-08-2023 End: 04-08-2023 Emergency department patient visit DO Leonides Walker Work Phone: [facility]Emergency [facility] Work Phone: Start: 03-02-2023 End: 03-02-2023 ambulatory BOBY SOMMERS Not Available Procedures Date Procedure Procedure Detail Performing Clinician Start: 04-14-2023 Us guidance needle placement img s&i Laura Solano MD Work Phone: Start: 04-14-2023 Fluoroscopy up to 1 hour physician/qhp time Carmela Guevara MD Work Phone: Start: 04-11-2023 Assay of magnesium [place] turn[place] Sabrina Pineda MD Work Phone: Start: 04-10-2023 Assay of magnesium [place] turn[place] Sabrina Pineda MD Work Phone: Start: 04-10-2023 Radex forearm 2 views M bárbara Renee MD Work Phone: Start: 04-09-2023 Assay of lactate Jacinto Haji MD Work Phone: Start: 04-09-2023 Blood count complete automated Luis Eduardo Buenrostro MD Work Phone: Start: 04-08-2023 Ecg routine ecg w/le ast 12 lds trcg only w/o i&r Abdelrahman Marie MD Work Phone: Start: 04-08-2023 Blood typing serologic abo Jarrod Chandler MD Work Phone: Start: 04-08-2023 Radex elbow complete minimum 3 views Adali Hidalgo MD Work Phone: Start: 04-08-2023 Radiologic exam ches t single view Abdelrahman Marie MD Work Phone: Start: 04-08-2023 Radiology Comparison study - date and time Kathryn Lee MD Work Phone: Start: 04-08-2023 Antibody screen Seven Walker Comment on above: Result Comment: PERF ORMED BY: [facility] [address] [place] [address] PATHOLOGIST LIFESTYLE BLOCK FARMER ZENY CURRIE M.D. Start: 04-08-2023 CT of thoracic and l umbar spine Tiara Haji MD Work Phone: Start: 04-08-2023 CTA Chest vessels an d Abdominal vessels and Pelvis vessels W contrast IV Tiara Haji MD Work Phone: Start: 04-08-2023 Assay of amylase Jarrod Chandler MD Work Phone: Start: 04-08-2023 Blood typing, ABO, R ho(D) and RBC antibody screening Jarrod Chandler MD Work Phone: Start: 04-08-2023 Drug screen quantita tive alcohols Jarrod Chandler MD Work Phone: Start: 04-08-2023 Computed tomography of abdomen and pelvis with contrast DO Leonides Walker Work Phone: Start: 04-08-2023 CT cervical spine wi thout contrast DO Leonides Walker Work Phone: Start: 04-08-2023 CT of head without contrast DO Leonides Walker Work Phone: Start: 04-08-2023 CT of thorax with contrast DO Leonides Walker Work Phone: Start: 04-08-2023 Plain X-ray of left forearm DO Leonides Walker Work Phone: Start: 04-08-2023 Plain X-ray of right femur DO Leonides Walker Work Phone: Start: 04-08-2023 Plain X-ray of right hip DO Leonides Walker Work Phone: Plan of Treatment Date Care Activity Detail Author Start: 2042 Shingles (RZV) Vacci ne (1 of 2) Shingles (RZV) Vaccine (1 of 2) [facility] Start: 04-08-2033 Tetanus vaccination Tetanus (T d or Tdap) Booster [facility] Start: 04-27-2023 End: 04-27-2023 Patient encounter procedure 04/27/2023 2:00 PM EST Office Visit [facility] [address] [address] Carmela Guevara MD [address] [place] [address] [place] [address] [facility] Start: 04-15-2023 End: 04-15-2023 Admission to same day surgery center 04/15/2023 12:02 PM EST - 04/15/2023 3:03 PM EST Surgery [facility] [address] [facility] [place] [address] Carmela Guevara MD [address] [place] [address] [place] [address] REDUCTION, OPEN, RADIUS [facility] OR Comment on above: REDUCTION, OPEN, RAD IUS Start: 04-15-2023 End: 04-15-2023 Evaluation and management of inpatient 04/15/2023 12:02 PM EST - 04/15/2023 3:03 PM EST Surgery [facility] OR [address] [place] [address] Carmela Guevara MD [address] [place] [address] [place] [address] REDUCTION, OPEN, RADIUS [facility] Comment on above: REDUCTION, OPEN, RAD IUS Start: 04-15-2023 End: 04-15-2023 REDUCTION, OPEN, RADIUS REDUCTION, OPEN, RADIUS Routine scheduled Closed displaced comminuted fracture of shaft of left radius, initial encounter 04/15/2023 12:02 PM EST [facility] Start: 04-14-2023 End: 04-14-2023 REDUCTION, OPEN, RADIUS REDUCTION, OPEN, RADIUS Routine scheduled Closed displaced comminuted fracture of shaft of left radius, initial encounter 04/14/2023 1:02 PM EST [facility] Start: 04-08-2023 [facility] Start: 10-30-2022 Influenza vaccination Influenza Vacc ine (#1) [facility] Start: 12-17-2019 HPV Vaccine (optiona l start 27-45 years) HPV Vaccine (optional start 27-45 years) [facility] Start: 12-17-2011 Hepatitis A (HAV) Vaccine (optional start 19+ years) Hepatitis A (HAV) Vaccine (optional start 19+ years) [facility] Start: 2010 Hepatitis C screening Hepatitis C An tibody [facility] Start: 2010 Tetanus + diphtheria + acellular pertussis vaccine (product) Tdap Booster [facility] Start: 06-16-1993 COVID-19 Vaccine (#1) COVID-19 Vacci ne (#1) [facility] Start: 1992 Hepatitis B vaccination Hepati tis B (HBV) Vaccine (1 of 3 - 3-dose series) [facility] Assay of magnesium MAGNESIUM Lab STAT Daily until discontinued starting 04/10/2023, 2 completed [facility] Work Phone: Comment on above: Daily until disconti nued starting 04/10/2023, 2 completed Assay of phosphorus inorganic PHOSPHORUS Lab STAT Daily until discontinued starting 04/10/2023, 2 completed [facility] Comment on above: Daily until disconti nued starting 04/10/2023, 2 completed CBC panel - Blood by Automated count COMPLETE BLOOD COUNT Lab STAT Daily until discontinued starting 04/09/2023, 3 completed [facility] Work Phone: Comment on above: Daily until disconti nued starting 04/09/2023, 3 completed Patient referral [facility] [place] Work Phone: Immunizations Immunization Date Immunization Notes Care Provider Fa cility 04-08-2023 tetanus toxoid, redu tali diphtheria toxoid, and acellular pertussis vaccine, adsorbed DO Leonides Walker Work Phone: [facility] Payers Date Payer Category Payer Self-pay [id number] 2023 Unknown [id number] 2023 Unknown COMMERCIAL INSUR ANCE - OTHER COMMERCIAL INSURANCE OTHER [id number] 2023-Present [address] [place] [address] Indemnity [id number] 2023 Unknown [id number] 2023 Unknown [id number] 2023 Worker's Compensation [id number] 2023 Unknown [id number] 1992 Unknown [id number] .[id number] 1992 Unknown [id number] .732 1992 Unknown [id number] [id number] .732 1992 Unknown [id number] [id number] .732 1992 Unknown [id number] [id number] .732 1992 Unknown [id number] [id number] .732 1992 Unknown [id number] [id number] .732 1992 Unknown [id number] [id number] .732 1992 Unknown [id number] [id number] .732 1992 Unknown [id number] [id number] .732 1992 Unknown [id number] [id number] .732 Unknown [id number] .531 Social History Date Type Detail Facility Tobacco smoking status MNIS Unknown if ever smoked [facility] Work Phone: Start: 1992 Sex Assigned At Male F [facility] Tobacco smoking status MNIS Tobacco smoking consumption unknown [facility] Start: 1990 [facility] Assigned At Not [facility] Gender identity Not on file [facility] Medical Equipment Procedure Code Equipment Code Equipment Origin al Text Equipment Identifier Dates 3.5 X 16 Screw E a1 [id number] - [id number] Start: 04-14-2023 Plate 9 Hole For earlennox [id number] - [id number] Start: 04-14-2023 Clinical Notes 11-08-2020 to 04-27-2023 Brief Operative Note - Jillian Read PA-C - 04/14/2023 1:33 PM ESTOP Note - Carmela Guevara MD - 04/14/2023 1:33 PM ESTBrief Operative Note - Jillian Read PA-C - 04/14/2023 1:33 PM ESTAttachments Note Date & Type Note Facility 04-27-2023 Note OCCUPATIONAL THERAPY HAND CLINIC EVALUATION [facility] case: authorization pending Visit #: 1 Referred to Occupational Therapy for evaluation and treatment. Referring Provider: Carmela Guevara MD Diagnosis: Aftercare following surgery Left forearm radial shaft fracture DOI/Mechanism: fell 30 feet off of a ladder while working on 04/08/23. Surgery: 04/14/23 LEFT FOREARM open treatment radial shaft fracture with internal fixation Precautions: NWB, No heavy lifting, Protective splint, and Healing fracture Payor: COMMERCIAL INSURANCE - OTHER / Plan: COMMERCIAL INSURANCE OTHER / Product Type: Debbie Williamson is a 32 year old RT hand dominant male. Past Medical History as of 04/27/2023: No past medical history on file. Medications: See snapshot for updated medication list. 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 Identification was verified by patient verbalizing name and date of . SUBJECTIVE: Patient's Goals: RTW Pain scale: Pain is 2/10. Pain located at volar surface of left forearm and is described as throbbing. To manage symptoms, patient instructed to complete home exercise program and to utilize splint as instructed. Ice pack for swelling. OBJECTIVE: Functional Deficits/ADL Status: Patient reports: He is independent with I/ADLs. Not lifting. Appearance: No supports on LUE- steri strips spanning length of forearm. Dissolvable sutures evident. Range of motion over time: AROM (PROM noted in parenthesis) Finger motion: distance to distal palmar crease (DPC), measured in cm Date: 04/27/23 Arm: LEFT Distance to DPC Index 0 Middle 0 Ring 0 Small 0 Thumb Opposes thumb to middle phalax of the SF Range of motion over time: AROM (PROM noted in parenthesis) All measurements documented in degrees. If not noted, joint range of motion within functional limits Date: 04/27/23 Arm: LEFT Elbow Extension -5 Flexion 140 Forearm Supination 80 Pronation 40 Wrist Extension WFL Flexion WFL Sensation: Per subjective mapping, N/T on volar surface of left thumb. Treatment Today: See Home Exercise Program Home Exercise Program (HEP): AROM Elbow - Extension/Flexion 20x, 3x day AROM Forearm - Supination/Pronation 20x, 3x day AROM Wrist - Extension and Flexion 20x, 3x day AROM Finger - Tendon Gliding 10x, 3x day Wound Care - wash in sink with soap and water daily and Vaseline once steri strips gone, give skin time to air out each day to avoid maceration. Edema Control (elevation with active pumping motion of hand 10x every other hour and compression with doubled stockinette) Orthosis: Date: 04/27/23 - Fabricated custom orthosis - Volar wrist extended border proximally Purpose of orthosis: relieve pain, enhance function, support/rest, and protect healing structures Wearing schedule: At all times except remove to shower and perform home exercises Patient was instructed in wearing schedule, care, and precautions. Pt educated in Home Exercise Program (HEP), Precautions, and Orthotic Management Pt response to education: Return demonstration, Verbalized understanding ASSESSMENT: Eduarda Williamson is a 32 year old male 1 week(s), 6 day(s) s/p surgery on left radial shaf and pt here today for fabrication of custom, removable splint and initiation of therapeutic home program. Pt moving quite well today considering post op dressing just removed, shows good potential to meet goals. He will be continuing therapy closer to his home in [place], [place]. Pt would benefit from skilled OT to address problem list below. Prognosis for therapy: Good Problems include: Decreased Range of Motion, Decreased Strength, Edema, Pain, Unable to perform Full Work Tasks, Open Wound, and Lack of home program, healing structures. PLAN OF CARE: Patient would benefit from Occupational Therapy for the following goals: GOALS SHORT-TERM GOALS = HALF-WAY GOALS - achieve in 1 visits: goals appear to have been met Goal Status last updated on 04/27/23 Pt will be independent with home exercise program as instructed by therapist. Status: MET Pt will demonstrate/verbalize use, care of, and precautions regarding orthoses. Status: MET Pt will be able to don/doff orthosis independently. Status:MET Pt. will be able to complete wound care independently. Status: MET Additional goals to be established based on patient's progress and therapy needs in subsequent visits. Frequency: ortho f/u on 06/07/22. OT f/u next week at [facility]. Interventions: AROM, AAROM, Tendon gliding exercises, Edema Control, Wound Care, Splinting, and Home program Plan of care discussed with patient and agreed upon. Risks and benefits of Occupational Therapy discussed with patient. Start Time: 15:52 Stop Time: 16:32 Total Treatment Minutes: 40 minutes Timed Code Treatments by Procedure: OT Therapeutic Procedures THERAPEUTIC EXERCISES (15 MIN) [79122 (more content not included)... [facility] 04-14-2023 Note Peripheral Block Patient location during procedure: holding area Start time: 04/14/2023 3:50 PM Reason for block: post-op pain management Preanesthetic Checklist Completed: patient identified, IV checked, risks and benefits discussed, consent given, standard monitors applied and equipment checked, pre-op evaluation and timeout performed Staffing: Authorized by: Laura Solano MD Performed by: Keyshawn Lopez MD Peripheral Block - brachial plexus block Shoulder block localization: axillary Patient position: sitting Prep: ChloraPrep, site prepped and draped and sterile technique and prep Laterality: left Injection technique: single-shot Guidance: ultrasound guided ULTRASOUND DOCUMENTATION: Ultrasound was used during this procedure to provide direct visualization of the nerves and surrounding vasculature, to improve block set up time, and potentially decrease complications. Surrounding anatomy and nerves were identified. Proper needle placement was confirmed as well as the deposition of local anesthetic around the nerve bundles. A copy of the image was placed in the permanent record. Needle Needle type: Stimuplex Needle gauge: 22 G Needle length: 2 in Needle localization: anatomical landmarks and ultrasound guidance Assessment Injection assessment: negative aspiration for heme, local visualized surrounding nerve on ultrasound, incremental injection and no paresthesia on injection Paresthesia pain: none Heart rate change: no Slow fractionated injection: yes No block complications [facility] 04-14-2023 Note Surgical Attestation : I have reviewed the patient's History and Physical Examination. I have personally seen and evaluated the patient, repeating ortez portions. There is no significant interval change. This injury occurred at work and is a [facility] claim. Surgery is still indicated. Yes Consent reviewed and signed by patient/family: Yes Operative site verified and marked: Yes Carmela Guevara MD 04/14/2023 11:51 AM [facility] 04-14-2023 Surgery Postoperative evaluation and management note Brief Operative Note BV OR 3 Eduarda Williamson 32 year old male Surgical Contact Serial Number: [id number] Preoperative Diagnosis: Pre-op Diagnosis * Closed displaced comminuted fracture of shaft of left radius, initial encounter [S52.352A] Postoperative Diagnosis: * Closed displaced comminuted fracture of shaft of left radius, initial encounter [S52.352A] Procedures: LEFT radial shaft open reduction internal fixation Surgeon(s): Surgeon(s): Carmela Guevara MD Staff: Scrub: Nathaly Gonzalez RN Research Food Technologist Nurse: Lesvia Knight RN; Sandy Yuen, ANTONINO; Bang Rao RN Physician Powder Mill Operator: Jillian Read PA-C Commercial Helicopter Pilot: Boy Weir MD Anesthesia: LMA; local Anesthesiologist: Laura Solano MD ITEM REPAIR MANAGER: Coreen Morris APRN-CRNA Tram Inspector: Keyshawn Lopez MD Specimen(s): * No specimens in log * Estimated Blood Loss: less than 5 cc Lines/Drains: Peripheral IV Access: 04/14/23 1237 22 gauge Right Antecubital (Active) Site Assessment WNL;Dressing intact 04/14/23 1312 Infusion Status Port #1 Infusing;Patent 04/14/23 1312 Temporarily Retained Foreign Object: No Findings: See operative report Complications: None Status at end of surgery: Stable Activity: Continued light duty including no pushing/pulling/lifting over 5 lbs Splint to remain on until follow up Surgical wound class: No wound. Patient Class: Outpatient Surgery. Is this a patient scheduled as an outpatient that needs to be admitted as an inpatient? No Dr. Guevara was present in the OR for the critical portion of the procedure and procedure sign-out. Signed by Jillian Read PA-C 04/14/2023 3:32 PM [facility] 04-14-2023 Surgery Surgical operation note Eduarda Williamson [id number] 04/14/2023 Date of Surgery: 04/14/2023 PREOPERATIVE DIAGNOSIS: leftforearm radial shaft fracture POSTOPERATIVE DIAGNOSIS: Same. PROCEDURE:LEFT FOREARM open treatment radial shaft fracture with internal fixation Use and interpretation of operating fluoroscopy: Yes ATTENDING SURGEON: Carmela Guevara M.D. STAFF: Scrub: Nathaly Gonzalez RN Research Food Technologist Nurse: Lesvia Knight RN; Sandy Yuen RN; Bang Rao RN Physician Powder Mill Operator: Jillian Read PA-C Commercial Helicopter Pilot: Boy Weir MD ANESTHESIA: Consult IV FLUIDS AND URINE: See anesthesia. ESTIMATED BLOOD LOSS: 1 mL. DRAINS: None. SPECIMENS: None. COMPLICATIONS: None. IMPLANTS: Implant Name Type Inv. Item Serial No. Gas Meter Installer Lot No. LRB No. Used Action PLATE 9 HOLE FOREARM [id number] - [id number] PLATE 9 HOLE FOREARM [id number] [place] Left 1 Implanted 3.5 X 16 SCREW EA1 [id number] - [id number] Screw 3.5 X 16 SCREW EA1 [id number] [place] Left 6 Implanted INDICATIONS: Patient suffered a displaced both bone forearm fracture and was evaluated in our ED. Closed reduction and splinting was performed. Due to the fracture displacement and instability, surgery was recommended. Both options of non operative and operative management were discussed. All risks and benefits of operative fixation which include but are not limited to bleeding, infection, stiffness, loss of motion, neurovascular injury were reviewed with the patient as well as expected course of recovery. All questions were answered prior to obtaining informed consent. DESCRIPTION OF PROCEDURE: Patient was seen and identified in the PreOperative area, consent reviewed, procedure confirmed and operative site marked. The patient was brought to the operating room and remained supine on the operative cart. The patient had the anesthesia placed by the anesthesiologist. The prep verification and incision time-outs were performed to confirm that this was the correct patient, site, side and location. The patient had SCDs in place on the lower extremities. The patient did receive antibiotics prior to the incision and was redosed during the procedure as needed at indicated intervals. Limb was exsanguinated with an esmarch and tourniquet inflated to 250mmHg. Modified volar Herny approach was undertaken through FCR sheath. The FCR was retracted ulnarly and proximally the interval between FCR And Brachioradialis was undertaken. Radial artery was identified and protected throughout the case. Arterial branches were cauterized where appropriate. FPL muscle belly was identified and elevated off the radial shaft for plating purposes. The pronator teres insertion was also sharply released off the radial shaft since It was overlying our fracture site. The fracture was identified and all interposed soft tissue was removed. Reduction of our radial shaft was achieved and a 9 hole volar plate was placed on the volar surface. Cortical screws were inserted proximal and distal to our fracture site to secure our plate and reduction. Xrays were taken to confirm excellent anatomic fixation and plate placement. Additional 3.5mm cortical screws were drilled and inserted proximal and distal to the fracture for a total of 6 cortices of fixation. Final orthogonal radiographs were taken to confirm reduction and position of hardware, which were excellent. Flurosocpic AP/LAteral images of the DRUJ were also taken to confirm anatomic alignment. Clinical assessment of the DRUJ and forearm range of motion was performed. The DRUJ was noted to be stable. No further fixation was performed. Tourniquet was deflated- excellent hemostasis was achieved. Wounds were copiously irrigated. Wound was closed in layers with vicryl for dermis and a running monocryl for skin. Steristrips were applied to skin. Dry sterile dressing and a splint were applied. The patient was transferred to the recovery room in stable condition. There were no intraoperative complications. I was present & scrubbed in the OR for all critical portions of the case. Carmela Guevara MD [facility] 04-14-2023 Miscellaneous Notes Brief Operative Note BV OR 3 Eduarda Williamson 32 year old male Surgical Contact Serial Number: [id number] Preoperative Diagnosis: Pre-op Diagnosis * Closed displaced comminuted fracture of shaft of left radius, initial encounter [S52.352A] Postoperative Diagnosis: * Closed displaced comminuted fracture of shaft of left radius, initial encounter [S52.352A] Procedures: LEFT radial shaft open reduction internal fixation Surgeon(s): Surgeon(s): Carmela Guevara MD Staff: Scrub: Nathaly Gonzalez RN Research Food Technologist Nurse: Lesvia Knight RN; Sandy Yuen RN; Bang Rao RN Physician Powder Mill Operator: Jillian Read PA-C Commercial Helicopter Pilot: Boy Weir MD Anesthesia: LMA; local Anesthesiologist: Laura Solano MD ITEM REPAIR MANAGER: Coreen Morris APRN-CRNA Tram Inspector: Keyshawn Lopez MD Specimen(s): * No specimens in log * Estimated Blood Loss: less than 5 cc Lines/Drains: Peripheral IV Access: 04/14/23 1237 22 gauge Right Antecubital (Active) Site Assessment WNL;Dressing intact 04/14/23 1312 Infusion Status Port #1 Infusing;Patent 04/14/23 1312 Temporarily Retained Foreign Object: No Findings: See operative report Complications: None Status at end of surgery: Stable Activity: Continued light duty including no pushing/pulling/lifting over 5 lbs Splint to remain on until follow up Surgical wound class: No wound. Patient Class: Outpatient Surgery. Is this a patient scheduled as an outpatient that needs to be admitted as an inpatient? No Dr. Guevara was present in the OR for the critical portion of the procedure and procedure sign-out. Signed by Jillian Read PA-C 04/14/2023 3:32 PM Eduarda Williamson [id number] 04/14/2023 Date of Surgery: 04/14/2023 PREOPERATIVE DIAGNOSIS: leftforearm radial shaft fracture POSTOPERATIVE DIAGNOSIS: Same. PROCEDURE:LEFT FOREARM open treatment radial shaft fracture with internal fixation Use and interpretation of operating fluoroscopy: Yes ATTENDING SURGEON: Carmela Guevara M.D. STAFF: Scrub: Nathaly Gonzalez RN Research Food Technologist Nurse: Lesvia Knight RN; Sandy Yuen RN; Bang Rao RN Physician Powder Mill Operator: Jillian Read PA-C Commercial Helicopter Pilot: Boy Weir MD ANESTHESIA: Consult IV FLUIDS AND URINE: See anesthesia. ESTIMATED BLOOD LOSS: 1 mL. DRAINS: None. SPECIMENS: None. COMPLICATIONS: None. IMPLANTS: Implant Name Type Inv. Item Serial No. Gas Meter Installer Lot No. LRB No. Used Action PLATE 9 HOLE FOREARM [id number] - [id number] PLATE 9 HOLE FOREARM [id number] [place] Left 1 Implanted 3.5 X 16 SCREW [id number] - [id number] Screw 3.5 X 16 SCREW [id number] [place] Left 6 Implanted INDICATIONS: Patient suffered a displaced both bone forearm fracture and was evaluated in our ED. Closed reduction and splinting was performed. Due to the fracture displacement and instability, surgery was recommended. Both options of non operative and operative management were discussed. All risks and benefits of operative fixation which include but are not limited to bleeding, infection, stiffness, loss of motion, neurovascular injury were reviewed with the patient as well as expected course of recovery. All questions were answered prior to obtaining informed consent. DESCRIPTION OF PROCEDURE: Patient was seen and identified in the PreOperative area, consent reviewed, procedure confirmed and operative site marked. The patient was brought to the operating room and remained supine on the operative cart. The patient had the anesthesia placed by the anesthesiologist. The prep verification and incision time-outs were performed to confirm that this was the correct patient, site, side and location. The patient had SCDs in place on the lower extremities. The patient did receive antibiotics prior to the incision and was redosed during the procedure as needed at indicated intervals. Limb was exsanguinated with an esmarch and tourniquet inflated to 250mmHg. Modified volar Herny approach was undertaken through FCR sheath. The FCR was retracted ulnarly and proximally the interval between FCR And Brachioradialis was undertaken. Radial artery was identified and protected throughout the case. Arterial branches were cauterized where appropriate. FPL muscle belly was identified and elevated off the radial shaft for plating purposes. The pronator teres insertion was also sharply released off the radial shaft since It was overlying our fracture site. The fracture was identified and all interposed soft tissue was removed. Reduction of our radial shaft was achieved and a 9 hole volar plate was placed on the volar surface. Cortical screws were inserted proximal and distal to our fracture site to secure our plate and reduction. Xrays were taken to confirm excellent anatomic fixation and plate placement. Additional 3.5mm cortical screws were drilled and inserted proximal and distal to the fracture for a total of 6 cortices of fixation. Final orthogonal radiographs were taken to confirm reduction and position of hardware, which were excellent. Flurosocpic AP/LAteral images of the DRUJ were also taken to confirm anatomic alignment. Clinical assessment of the DRUJ and forearm range of motion was performed. The DRUJ was noted to be stable. No further fixation was performed. Tourniquet was deflated- excellent hemostasis was achieved. Wounds were copiously irrigated. Wound was closed in layers with vicryl for dermis and a running monocryl for skin. Steristrips were applied to skin. Dry sterile dressing and a splint were applied. The patient was transferred to the recovery room in stable condition. There were no intraoperative complications. I was present & scrubbed in the OR for all critical portions of the case. Carmela Guevara MD Blood Attestation: ATTESTATION OF INFORMED CONSENT FOR BLOOD: The transfusion of blood and/or blood components were discussed with the patient and/or legal franchise sales representative. The risks, benefits and alternatives were reviewed. Questions regarding blood transfusions were answered. The patient /or the patient s legal franchise sales representative agree with the plan for transfusion of blood and/or blood components. documented in this encounter [facility] 04-14-2023 Progress note Formatting of t his note is different from the original. Blood Attestation: ATTESTATION OF INFORMED CONSENT FOR BLOOD: The transfusion of blood and/or blood components were discussed with the patient and/or legal franchise sales representative. The risks, benefits and alternatives were reviewed. Questions regarding blood transfusions were answered. The patient /or the patient s legal franchise sales representative agree with the plan for transfusion of blood and/or blood components. [employer] Work Phone: 04-14-2023 Hospital Discharge instructions Dior Lazaro RN - 04/14/2023 11:53 AM EST Post-Operative Instructions Orthopaedic Hand and Upper Extremity Surgery Dressing You have a splint on your hand/wrist. Do Not remove dressing until your next appointment with your surgeon. Please call your surgeon's office if this is not already arranged Showering You may shower as soon as you want after surgery. Please cover the dressing with a bag and do not get it wet. If your cast or splint gets wet, please contact your surgeon's office to arrange to be seen. When you are permitted to remove your dressing (after first post-operative visit), you may shower and get the wound wet once dressing is removed. You may allow the water to run over the incisions and pat the incision dry. Do Not let the wound soak in a tub, pool, or dish water. Ice & Elevate The use of ice on your wrist after surgery will help with both pain control and swelling. Continue with icing for the first 48 hours after surgery. Thereafter, use it on an as needed basis. Elevate your wrist above heart level as much as possible for the first 48 hours after surgery. This will keep the swelling to a minimum and prevent throbbing and pain. Pain Medication and Pain Management You may be provided with an oral pain medication. Pain medication may cause some tiredness, nausea, or constipation. If these symptoms become significantly problematic, please contact your surgeon's office and discontinue the medication. DO NOT drink alcohol or use recreational drugs while taking prescribed pain medication.. Unless otherwise directed by your surgeon or physician psychological assistant, you may take over the counter anti-inflammatory (NSAID) medication (Ibuprofen, naproxen, etc.) as directed on the label. If you have a medical contraindication to taking NSAIDS, please consult your primary care doctor for advice. Please be sure you understand the plan for your post-operative pain management and are aware of where to pick up and delivery driver your prescriptions if not provided before discharge. If you received a nerve block, your arm and hand may be numb for several hours (6-24 hours). Take your pain medication as directed even though the pain is minimal with the block; do not wait for the pain to become out of control. The most severe pain occurs as the block wears off. Even if you are not having pain but feel the arm and hand waking up , take your pain medication so that it will be working when needed. Rest and elevation are some of the most crucial factors for pain control. Anticoagulation If you are taking blood thinners (anticoagulants) and have stopped them for your surgery, please understand the plan for restarting them. Eating and Drinking Gradually resume your normal diet. The night of your surgery, begin with liquids and/or light foods. If you are feeling well enough in the morning progress to your normal eating patterns. Eating a well-balanced diet with plenty of fresh fruits and vegetables and drinking plenty of fluids may help alleviate and constipation resulting from pain medication. Smoking and smokeless tobacco Tobacco use (smoking and all other forms) can interfere with wound and fracture healing and may increase your pain. Do not smoke postoperatively. Please contact your surgeon's office for a referral to the smoking cessation program. Driving DO NOT drive a vehicle while you are on pain medication due to the possible side effects. Once you are no longer taking pain medication and you can safely control the vehicle, you may drive. Warning Signs Observe your wrist and incision site for increased redness, swelling, drainage, foul odor, or increased pain unrelieved by rest or medication. If any of the above occurs, or should you develop a fever greater than 101 degrees, please notify your surgeon's office or contact the orthopaedic nurse at immediately. After office hours, on weekends or holidays, please call the [facility] Nurse Line at [phone]. Appointments Your follow-up appointment is scheduled on Future Appointments Date Time Provider Department Center 04/27/2023 2:00 PM Carmela Guevara MD [facility] If you do not already have an appointment scheduled within two weeks of your surgery, please contact the surgeon s office. Do not hesitate to call your surgeon s office with any questions or concerns. After business hours please call the [facility] Nurse Line at and ask for the orthopaedic resident manager environmental health. For emergencies call 911. [facility] Upper Extremity and Hand Surgery MD Jillian Galvan PA-C Orthopaedic Surgery Nurse Line Orthopaedic Surgery Appointments [phone] For questions related to paperwork, please call Orthopaedic Surgery [phone] PERIOPERATIVE DISCHARGE/HOME-GOING INSTRUCTIONS ANESTHESIA - GENERAL (ADULT) If a problem arises, you may contact your physician by calling [phone] and asking for the resident manager environmental health for hand surgery service. Special Care Needs: Activity: Rest at home today and tomorrow, then progress to your regular activities as tolerated. Diet: Clear liquids are best tolerated at first. If you are not nauseated, you can progress your diet to solid foods as tolerated. Possible post-operative precautions: Call you doctor or clinic for: 1. Signs of infection such as fever or chills. 2. Severe pain that in not relieved by Tylenol or your pain medicine prescription. 3. You may have a sore throat - it is usually gone in 1 to 2 days. Post-anesthesia safety: Possible side effects include drowsiness, dizziness, or inability to think clearly. For your safety, do not drive, drink alcoholic beverages, take any unprescribed medication or make any important decisions for 24 hours. A responsible adult should be with you for 24 hours. If no urine by 930PM or you become very uncomfortable and can t urinate, call [phone] or come to the emergency room. The day after surgery, a nurse will call to check on you. However, if there are any questions or concerns, please call us at the number listed in the home going instructions. PERIOPERATIVE DISCHARGE/HOME-GOING INSTRUCTIONS ANESTHESIA - PERIPHERAL NERVE BLOCK Precautions: Avoid exposure to extreme cold or heat on affected site until normal sensation returns. Because the nerves were temporarily numbed, you will not be able to tell if your skin is getting burned or damaged. Avoid weight bearing to the affected arm or leg. Because the nerves were temporarily numbed, your arm or leg may be weak and may not support weight. In addition, you will not be able to feel the pain that would normally prevent you from straining that limb. If you have numbness or excessive weakness in any or part of the affected area that persists beyond 36 hours, contact [phone], and ask for the anesthesiologist manager environmental health. For additional health information, call: [employer] Line at [phone]; 24 hours a day. You were given IV Toradol (which is an NSAID) today for your procedure. You next dose of Motrin is due TONIGHT at 9PM 04/14/2023 documented in this encounter [facility] 04-14-2023 History and physical note Surgical Attestation: I have reviewed the patient's History and Physical Examination. I have personally seen and evaluated the patient, repeating ortez portions. There is no significant interval change. This injury occurred at work and is a [facility] claim. Surgery is still indicated. Yes Consent reviewed and signed by patient/family: Yes Operative site verified and marked: Yes Carmela Guevara MD 04/14/2023 11:51 AM [facility] Work Phone: 04-14-2023 History and physical note Surgical Attestation: I have reviewed the patient's History and Physical Examination. I have personally seen and evaluated the patient, repeating ortez portions. There is no significant interval change. This injury occurred at work and is a [facility] claim. Surgery is still indicated. Yes Consent reviewed and signed by patient/family: Yes Operative site verified and marked: Yes Carmela Guevara MD 04/14/2023 11:51 AM documented in this encounter [facility] 04-11-2023 Note [facility] DIVISION OF TRAUMA SURGERY DISCHARGE SUMMARY [address] [id number] Eduarda Williamson Date of : 1990 32 year oldmale Attending Tyshawn Ibarra MD Date of Admission 04/08/2023 Date of Discharge 04/11/2023 FINAL DIAGNOSES: Hospital Problems as of 04/11/2023 * (Principal) Closed fracture of shaft of left radius Mesenteric hematoma, initial encounter Fall from ladder PROCEDURES: None DISCHARGE MEDICATIONS: Current Discharge Medication List START taking these medications Details acetaminophen (TYLENOL) 500 MG tablet Take 1-2 Tablets by mouth every 6 hours as needed for up to 14 days. Qty: 112 Tablet, Refills: 0 oxyCODONE 5 MG immediate release tablet Take 1 Tablet by mouth every 6 hours as needed for up to 3 days. Qty: 12 Tablet, Refills: 0 Associated Diagnoses: Closed fracture of shaft of left radius, unspecified fracture morphology, initial encounter senna (SENOKOT) 8.6 MG tablet Take 1 Tablet by mouth daily. To prevent/treat constipation while taking opioids. Hold if having bowel movements. Qty: 30 Tablet, Refills: 0 REASON FOR HOSPITALIZATION: Eduarda Williamson is a 32 year old male with no significant PMHx brought in by EMS [facility] from [facility]. 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 -LOC -headstrike -AC/AP. [facility] imaging demonstrated a small R PTX, SMA artery dissection with active hemorrhage and L forearm fracture and was transferred to [facility] for further care. 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 CTA redemonstrates the focal hematoma in the RLQ with no evidence of active extravasation. No PTX on imaging. Mild increase in the amount of hemoperitoneum which abuts loops of lbowel. Admitted to trauma [facility] for serial abdominal exams. LUE splinted by ortho. SIGNIFICANT FINDINGS: Catalog of Injuries 1. S/p Fall from height, ~30ft (ladder) 04/08/2023 2. Traumatic mesenteric hematoma 3. Left radial shaft fracture 4. Small R apical pneumothorax 5. Acute pain due to trauma Incidental Findings None on imaging, reviewed 04/10 KO HOSPITAL COURSE: 04/08/2023: Fall from . Tx'd to [facility] from [facility] for serial abdominal exams and orthopedic consultation. 04/09: Abdominal exams benign. H/H stable. Admitted to Trauma [facility]. 04/10: Advanced to regular diet. Abdominal exam and H/H remain stable. 04/11:Tolerated regular diet, +BM. Medically cleared for discharge to home this day. The patient was seen and examined on the day of discharge with the following findings: ----- PHYSICAL EXAM ----- Vital Signs: Vital sign ranges over the past 24 hours (retrieved 04/11/2023 at 6:24 AM): Tmax (24 hours): 98.5 ???F (36.9 ???C) Pulse Av.8 Min: 76 Max: 98 Systolic (24hrs), Av , Min:129 , Max:147 Diastolic (24hrs), Av, Min:60, Max:77 MAP (mmHg) Av.8 mmHg Min: 78 mmHg Max: 95 mmHg Resp Av.2 Min: 15 Max: 20 SpO2 Av.2 % Min: 94 % Max: 96 % ----- PHYSICAL EXAM ----- GENERAL: NAD lying in bed, pleasant and conversant NEURO: GCS 15, no focal neurologic deficits. HEENT: Normocephalic CARDIOVASCULAR: RRR, No MRG PULMONARY: CTAB on RA, unlabored respirations ABDOMINAL: S/ND/NT EXTREMITIES: No edema, HENNING. R thigh mildy TTP. Splint LUE, unable to assess radial pulse, cap refill <3 seconds, MSPs intact. SKIN: WDI Condition at discharge: improved Diet: No restrictions Restrictions: Weight lift/push: No lifting greater than 10 lbs Spine: Clear Extremity: NWB LUE- in sugar tong splint Functional status: ambulatory Patient discharge to: Home ANTICIPATED FOLLOW UP: No future appointments. Other indicated follow up and instructions for scheduling: - Trauma PRN for abdominal hematoma - Ortho (Ismael) in 1-2 weeks No discharge procedures on file. VTE RISK AT DISCHARGE: Per trauma program protocol, the patient does not REQUIRE post-discharge VTE prophylaxis. OARRS was reviewed on 04/11/23: Overdose risk score is 000. Patient was advised that opioids cause sedation and that he/she should not drive or operate dangerous machinery while taking opioids and should not mix with alcohol or other sedating drugs. Patient was informed of the risk of respiratory, AUT[employer] depression and when medications are misused. Additionally, patient advised on addictiveness, safe storage and disposal of opioids. Explanation of the primary diagnosis, and secondary diagnoses where applicable, including test results, Discussion of any new medications and treatments, including expected benefits and potential major side effects, Explanation of previous treatments or medications that are discontinued, Disc (more content not included)... [facility] 04-11-2023 Plan of care note Problem: Routine Care: Goal: Patient care will be managed and maintained throughout hospital stay per unit specific routine care procedure Outcome: Adequate for Discharge Problem: Impaired Skin Integrity: Goal: Acheive wound healing without signs and symptoms of infection Outcome: Adequate for Discharge Problem: VTE Prophylaxis: Goal: Will be free of DVT Outcome: Adequate for Discharge Problem: Altered Neurological Status: Goal: Optimal neurological status will be maintained or regained Outcome: Adequate for Discharge Problem: Acute Pain: Goal: Ability to identify pain intensity on a pain scale and rate it consistently will be achieved and maintained Outcome: Adequate for Discharge Goal: Understanding of proper administration and use of medicines will be achieved Outcome: Adequate for Discharge Goal: Acceptable level of pain which allows the patient to achieve functional outcome goals Outcome: Adequate for Discharge Problem: Safety: Goal: Patient will remain free of falls during hospital stay Outcome: Adequate for Discharge Goal: Free from injury during hospitalization Outcome: Adequate for Discharge Problem: Discharge Planning: Goal: Discharge needs of the adult patient will be met Outcome: Adequate for Discharge [facility] 04-11-2023 Miscellaneous Notes Problem: Routine Care: Goal: Patient care will be managed and maintained throughout hospital stay per unit specific routine care procedure Outcome: Adequate for Discharge Problem: Impaired Skin Integrity: Goal: Acheive wound healing without signs and symptoms of infection Outcome: Adequate for Discharge Problem: VTE Prophylaxis: Goal: Will be free of DVT Outcome: Adequate for Discharge Problem: Altered Neurological Status: Goal: Optimal neurological status will be maintained or regained Outcome: Adequate for Discharge Problem: Acute Pain: Goal: Ability to identify pain intensity on a pain scale and rate it consistently will be achieved and maintained Outcome: Adequate for Discharge Goal: Understanding of proper administration and use of medicines will be achieved Outcome: Adequate for Discharge Goal: Acceptable level of pain which allows the patient to achieve functional outcome goals Outcome: Adequate for Discharge Problem: Safety: Goal: Patient will remain free of falls during hospital stay Outcome: Adequate for Discharge Goal: Free from injury during hospitalization Outcome: Adequate for Discharge Problem: Discharge Planning: Goal: Discharge needs of the adult patient will be met Outcome: Adequate for Discharge Problem: Routine Care: Goal: Patient care will be managed and maintained throughout hospital stay per unit specific routine care procedure Outcome: Progressing Note: Hourly rounding performed. Problem: Impaired Skin Integrity: Goal: Acheive wound healing without signs and symptoms of infection Outcome: Progressing Note: Shiva scale interventions in place. Problem: VTE Prophylaxis: Goal: Will be free of DVT Outcome: Progressing Note: SCDs and Lovenox ordered. Problem: Altered Neurological Status: Goal: Optimal neurological status will be maintained or regained Outcome: Progressing Note: Neuro assessed Q shift. Problem: Acute Pain: Goal: Ability to identify pain intensity on a pain scale and rate it consistently will be achieved and maintained Outcome: Progressing Note: Numeric pain scale in use. Goal: Understanding of proper administration and use of medicines will be achieved Outcome: Progressing Note: Pre/post pain assessed. Goal: Acceptable level of pain which allows the patient to achieve functional outcome goals Outcome: Progressing Note: Routine pain assessed. Problem: Safety: Goal: Patient will remain free of falls during hospital stay Outcome: Progressing Note: Moderate falls risk interventions in place. Goal: Free from injury during hospitalization Outcome: Progressing Problem: Discharge Planning: Goal: Discharge needs of the adult patient will be met Outcome: Progressing Note: Home pending medical clearance. Problem: Altered Elimination: Goal: Establishment of normal urinary function will be acheived and maintained Outcome: Met Goal: Establishment of individualized urinary routine Outcome: Met Problem: Impaired Mobility: Goal: Ability to tolerate increased activity will improve and be maintained Outcome: Met Goal: Ability to maintain or regain baseline function will be acheived Outcome: Met Problem: Fluid and Electrolyte Imbalance: Goal: Adequate fluid and electrolyte balance will be achieved and maintained Outcome: Met Problem: Routine Care: Goal: Patient care will be managed and maintained throughout hospital stay per unit specific routine care procedure Outcome: Progressing Note: Purposeful hourly rounding performed. Problem: Impaired Skin Integrity: Goal: Acheive wound healing without signs and symptoms of infection Outcome: Progressing Note: LUE sugartong splint intact. Problem: Altered Elimination: Goal: Establishment of normal urinary function will be acheived and maintained Outcome: Progressing Note: Carney removed at 1800 per order- patient due for spontaneous void. Goal: Establishment of individualized urinary routine Outcome: Progressing Problem: Impaired Mobility: Goal: Ability to tolerate increased activity will improve and be maintained Outcome: Progressing Note: NWB LUE, PT/OT. Goal: Ability to maintain or regain baseline function will be acheived Outcome: Progressing Problem: VTE Prophylaxis: Goal: Will be free of DVT Outcome: Progressing Problem: Fluid and Electrolyte Imbalance: Goal: Adequate fluid and electrolyte balance will be achieved and maintained Outcome: Progressing Problem: Altered Neurological Status: Goal: Optimal neurological status will be maintained or regained Outcome: Progressing Problem: Acute Pain: Goal: Ability to identify pain intensity on a pain scale and rate it consistently will be achieved and maintained Outcome: Progressing Note: Patient aware of PRN pain medications. Will continue to assess pain throughout shift and medicate as indicated. Goal: Understanding of proper administration and use of medicines will be achieved Outcome: Progressing Goal: Acceptable level of pain which allows the patient to achieve functional outcome goals Outcome: Progressing Problem: Safety: Goal: Patient will remain free of falls during hospital stay Outcome: Progressing Goal: Free from injury during hospitalization Outcome: Progressing Problem: Discharge Planning: Goal: Discharge needs of the adult patient will be met Outcome: Progressing AdmissionCare Guideline: Abdominal Trauma (Blunt), Inpatient Based on the indications selected for the patient, the bed status of Inpatient was determined to be MET The following indications were selected as present at the time of evaluation of the patient: - Positive diagnostic findings, including 1 or more of the following: - Imaging findings requiring surgery or inpatient care (eg, free fluid, hemorrhage, abdominal vascular injury, organ injury) AdmissionCare documentation entered by: Luis Eduardo [facility]en[facility], 27th edition, Copyright 2022 [facility] [place] [facility] All Rights Reserved. [id number] documented in this encounter [facility] 04-11-2023 Hospital course Narrative Images from the original note were not included. [facility] DIVISION OF TRAUMA SURGERY DISCHARGE SUMMARY [place] [id number] Eduarda Williamson Date of : 1990 32 year oldmale Attending Tyshawn Ibarra MD Date of Admission 04/08/2023 Date of Discharge 04/11/2023 FINAL DIAGNOSES: Hospital Problems as of 04/11/2023 * (Principal) Closed fracture of shaft of left radius Mesenteric hematoma, initial encounter Fall from ladder PROCEDURES: None DISCHARGE MEDICATIONS: Current Discharge Medication List START taking these medications Details acetaminophen (TYLENOL) 500 MG tablet Take 1-2 Tablets by mouth every 6 hours as needed for up to 14 days. Qty: 112 Tablet, Refills: 0 oxyCODONE 5 MG immediate release tablet Take 1 Tablet by mouth every 6 hours as needed for up to 3 days. Qty: 12 Tablet, Refills: 0 Associated Diagnoses: Closed fracture of shaft of left radius, unspecified fracture morphology, initial encounter senna (SENOKOT) 8.6 MG tablet Take 1 Tablet by mouth daily. To prevent/treat constipation while taking opioids. Hold if having bowel movements. Qty: 30 Tablet, Refills: 0 REASON FOR HOSPITALIZATION: Eduarda Williamson is a 32 year old male with no significant PMHx brought in by [facility]. 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 -LOC -headstrike -AC/AP. [facility] demonstrated a small R PTX, SMA artery dissection with active hemorrhage and L forearm fracture and was transferred to [facility] for further care. 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 CTA redemonstrates the focal hematoma in the RLQ with no evidence of active extravasation. No PTX on imaging. Mild increase in the amount of hemoperitoneum which abuts loops of lbowel. Admitted to trauma RNF for serial abdominal exams. LUE splinted by ortho. SIGNIFICANT FINDINGS: Catalog of Injuries 1. S/p Fall from height, ~30ft (ladder) 04/08/2023 2. Traumatic mesenteric hematoma 3. Left radial shaft fracture 4. Small R apical pneumothorax 5. Acute pain due to trauma Incidental Findings None on imaging, reviewed 04/10 KO HOSPITAL COURSE: 04/08/2023: Fall from . Tx'd to [facility] from [facility] for serial abdominal exams and orthopedic consultation. 04/09: Abdominal exams benign. H/H stable. Admitted to Trauma [facility]. 04/10: Advanced to regular diet. Abdominal exam and H/H remain stable. 04/11:Tolerated regular diet, +BM. Medically cleared for discharge to home this day. The patient was seen and examined on the day of discharge with the following findings: ----- PHYSICAL EXAM ----- Vital Signs: Vital sign ranges over the past 24 hours (retrieved 04/11/2023 at 6:24 AM): Tmax (24 hours): 98.5 F (36.9 C) Pulse Av.8 Min: 76 Max: 98 Systolic (24hrs), Av , Min:129 , Max:147 Diastolic (24hrs), Av, Min:60, Max:77 MAP (mmHg) Av.8 mmHg Min: 78 mmHg Max: 95 mmHg Resp Av.2 Min: 15 Max: 20 SpO2 Av.2 % Min: 94 % Max: 96 % ----- PHYSICAL EXAM ----- GENERAL: NAD lying in bed, pleasant and conversant NEURO: GCS 15, no focal neurologic deficits. HEENT: Normocephalic CARDIOVASCULAR: RRR, No MRG PULMONARY: CTAB on RA, unlabored respirations ABDOMINAL: S/ND/NT EXTREMITIES: No edema, HENNING. R thigh mildy TTP. Splint LUE, unable to assess radial pulse, cap refill <3 seconds, MSPs intact. SKIN: WDI Condition at discharge: improved Diet: No restrictions Restrictions: Weight lift/push: No lifting greater than 10 lbs Spine: Clear Extremity: NWB LUE- in sugar tong splint Functional status: ambulatory Patient discharge to: Home ANTICIPATED FOLLOW UP: No future appointments. Other indicated follow up and instructions for scheduling: - Trauma PRN for abdominal hematoma - Ortho (Ismael) in 1-2 weeks No discharge procedures on file. VTE RISK AT DISCHARGE: Per trauma program protocol, the patient does not REQUIRE post-discharge VTE prophylaxis. OARRS was reviewed on 04/11/23: Overdose risk score is 000. Patient was advised that opioids cause sedation and that he/she should not drive or operate dangerous machinery while taking opioids and should not mix with alcohol or other sedating drugs. Patient was informed of the risk of respiratory, [employer]IST depression and when medications are misused. Additionally, patient advised on addictiveness, safe storage and disposal of opioids. Explanation of the primary diagnosis, and secondary diagnoses where applicable, including test results, Discussion of any new medications and treatments, including expected benefits and potential major side effects, Explanation of previous treatments or medications that are discontinued, Discussion of post-hospital day-to-day care needs including therapy, wound care, etc., and Follow up plans and warning signs that should prompt more urgent follow up Laura Caruso APRN, [facility] Trauma Surgery Surgical Critical Care Pager: [phone] *For urgent issues arising after 5PM during the week or on weekends/holiday, please page the trauma resident manager environmental health at [phone]. This patient's plan of care was discussed with Trauma Floor attending, Dr. Ibarra. documented in this encounter [facility] 04-10-2023 Note PHYSICAL THERAPY ACU TE EVALUATION Referral received, chart reviewed. Patient seen from 9:51 to 10:13 on GC5E unit for 22 minutes. 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 No past surgical history on file. Precautions: NWB (L) UE Full Code Clear Liquid Diet Identification was verified by patient verbalizing his/her name and date of . Risks and Benefits of physical therapy: Patient informed of risks and benefits of treatment SUBJECTIVE: Patient Subjective: I am just thankful this wasn't worse. Patient Identified Goal(s): It feels so good to be up and moving, I will definitely do this again. 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 Home: 0 steps to enter 0 steps to bedroom/bathroom ([facility]) Assistance available: Lives with Parents who work but are supportive Equipment available: none OBJECTIVE: Appearance: Supine in bed, Hospital gown, underwear from home, (L) UE sugartong splint intact, Hep-locked IV Behavior: Alert, pleasant, cooperative, motivated Oriented x 3 Follows simple - step commands consistently Pain: low back Pain Scale: 6 /10 Pain Relief Interventions Implemented: Ice, Positioning, Relaxation Training, RN aware and reports patient received medication according to time schedule, Mobility Passive ROM: Grossly WFL x 4 extremities; (L) UE immobilized Strength/Active ROM: Symmetrical and strong (B) Hemibody No overt motor deficit identified Exercise: (L) shoulder flex/ext AROM x 10 (L)hand/finger flexion/extension (full AROM attained) x 10 Mobility: Supine to sit at EOB : Mod (I); increased time to complete; NWB (L) UE Seated balance at EOB: (I) Sit to stand: (I); no device, NWB (L) UE Patient ambulates 350+ feet, no device: (I). Slow, steady gait pattern overall; mild antalgia over (L) LE that resolves with distance Stand to sit in BS chair/positioning in chair: (I); NWB (L) UE Endurance: WFL - no overt SOB noted with exertion. Patient Education: Orally reviewed all injuries Educated Patient in NWB status of (L) UE Educated Patient in role of Physical Therapy Evaluation/Tx during INPT Stay. Encouraged upright/OOB and ambulation on Unit 3x/day - Patient is agreeable. Encouraged (L) shoudler and hand AROM throughout day; Patient returns demo correctly Patient up in chair with call light in reach. 04/10/2023 6 Clicks Basic Mobility PT Difficulty turning over in bed 4 Difficulty sitting down and standing up from a chair with arms 4 Difficulty moving from lying on back to sitting on the side of the bed 4 Help from another person moving to and from bed to a chair 4 Help from another person to walk in hospital room 4 Help from another person climbing 3-5 steps with a railing 4 PT 6 Clicks Score 24 6 Click Score Guidelines: 1 - Total = Requires total assistance, or cannot do at all. 2 - A lot = Requires a lot of help (maximun to moderate assistance) Can use assistive devices. 3 - A little = Requires a little help (supervision, minimal assistance) Can use assistive devices. 4 - None = Does not require any help and does the activity independently. Can use assistive devices. Progressive Mobility Protocol Score: Level 4: Ambulatory in room / on Unit ASSESSMENT: Eduarda Williamson is a 32 year old yo male admit 04.08.2023 s/p fall 30 feet from telephone pole (work injury) with resultant injuries as detailed above. Patient presents this date as painful but motivated and cooperative; mobilizing at (I) level overall; compliant to NWB status of (L) UE Homegoing is functionally appropriate plan at MD discretion No further Acute PT needs identified at this time Thank you for Consult PLAN OF CARE: D/C Acute PT this date The evaluation findings and treatment plan were discussed with the patient The patient indicated understanding and agreement with the plan. Marilu Givens, PT, MPT (B) [phone] *Secure Chat with Questions NA = Not Assessed, I = Independent, WV = Modified Independent, Sup = Supervised, Set up = Physical Assistance for Set-up Only, Min = Minimal Assistance, Mod = Moderate Assistance, Max = Max assistance; Dep = Dependent; AROM = Active Range of Motion; PROM = Passive Range of Motion; MMT = Manual Muscle Test; LE = Lower Extremity [facility] 04-10-2023 Consult note Associated Order (s): IP PHYSICAL THERAPY SERVICE REQUEST PHYSICAL THERAPY ACUTE EVALUATION Referral received, chart reviewed. Patient seen from 9:51 to 10:13 on GC5E unit for 22 minutes. 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 No past surgical history on file. Precautions: NWB (L) UE Full Code Clear Liquid Diet Identification was verified by patient verbalizing his/her name and date of . Risks and Benefits of physical therapy: Patient informed of risks and benefits of treatment SUBJECTIVE: Patient Subjective: I am just thankful this wasn't worse. Patient Identified Goal(s): It feels so good to be up and moving, I will definitely do this again. 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 Home: 0 steps to enter 0 steps to bedroom/bathroom ([place] [facility]) Assistance available: Lives with Parents who work but are supportive Equipment available: none OBJECTIVE: Appearance: Supine in bed, Hospital gown, underwear from home, (L) UE sugartong splint intact, Hep-locked IV Behavior: Alert, pleasant, cooperative, motivated Oriented x 3 Follows simple - step commands consistently Pain: low back Pain Scale: 6 /10 Pain Relief Interventions Implemented: Ice, Positioning, Relaxation Training, RN aware and reports patient received medication according to time schedule, Mobility Passive ROM: Grossly WFL x 4 extremities; (L) UE immobilized Strength/Active ROM: Symmetrical and strong (B) Hemibody No overt motor deficit identified Exercise: (L) shoulder flex/ext AROM x 10 (L)hand/finger flexion/extension (full AROM attained) x 10 Mobility: Supine to sit at EOB : Mod (I); increased time to complete; NWB (L) UE Seated balance at EOB: (I) Sit to stand: (I); no device, NWB (L) UE Patient ambulates 350+ feet, no device: (I). Slow, steady gait pattern overall; mild antalgia over (L) LE that resolves with distance Stand to sit in BS chair/positioning in chair: (I); NWB (L) UE Endurance: WFL - no overt SOB noted with exertion. Patient Education: Orally reviewed all injuries Educated Patient in NWB status of (L) UE Educated Patient in role of Physical Therapy Evaluation/Tx during INPT Stay. Encouraged upright/OOB and ambulation on Unit 3x/day - Patient is agreeable. Encouraged (L) shoudler and hand AROM throughout day; Patient returns demo correctly Patient up in chair with call light in reach. 04/10/2023 6 Clicks Basic Mobility PT Difficulty turning over in bed 4 Difficulty sitting down and standing up from a chair with arms 4 Difficulty moving from lying on back to sitting on the side of the bed 4 Help from another person moving to and from bed to a chair 4 Help from another person to walk in hospital room 4 Help from another person climbing 3-5 steps with a railing 4 PT 6 Clicks Score 24 6 Click Score Guidelines: 1 - Total = Requires total assistance, or cannot do at all. 2 - A lot = Requires a lot of help (maximun to moderate assistance) Can use assistive devices. 3 - A little = Requires a little help (supervision, minimal assistance) Can use assistive devices. 4 - None = Does not require any help and does the activity independently. Can use assistive devices. Progressive Mobility Protocol Score: Level 4: Ambulatory in room / on Unit ASSESSMENT: Eduarda Williamson is a 32 year old yo male admit 04.08.2023 s/p fall 30 feet from telephone pole (work injury) with resultant injuries as detailed above. Patient presents this date as painful but motivated and cooperative; mobilizing at (I) level overall; compliant to NWB status of (L) UE Homegoing is functionally appropriate plan at MD discretion No further Acute PT needs identified at this time Thank you for Consult PLAN OF CARE: D/C Acute PT this date The evaluation findings and treatment plan were discussed with the patient The patient indicated understanding and agreement with the plan. Marilu Givens, PT, MPT (B) [phone] *Secure Chat with Questions NA = Not Assessed, I = Independent, WV = Modified Independent, Sup = Supervised, Set up = Physical Assistance for Set-up Only, Min = Minimal Assistance, Mod = Moderate Assistance, Max = Max assistance; Dep = Dependent; AROM = Active Range of Motion; PROM = Passive Range of Motion; MMT = Manual Muscle Test; LE = Lower Extremity [facility] 04-10-2023 Consult note Associated Order (s): IP PHYSICAL THERAPY SERVICE REQUEST PHYSICAL THERAPY ACUTE EVALUATION Referral received, chart reviewed. Patient seen from 9:51 to 10:13 on GC5E unit for 22 minutes. 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 No past surgical history on file. Precautions: NWB (L) UE Full Code Clear Liquid Diet Identification was verified by patient verbalizing his/her name and date of . Risks and Benefits of physical therapy: Patient informed of risks and benefits of treatment SUBJECTIVE: Patient Subjective: I am just thankful this wasn't worse. Patient Identified Goal(s): It feels so good to be up and moving, I will definitely do this again. 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 Home: 0 steps to enter 0 steps to bedroom/bathroom ([place] [facility]) Assistance available: Lives with Parents who work but are supportive Equipment available: none OBJECTIVE: Appearance: Supine in bed, Hospital gown, underwear from home, (L) UE sugartong splint intact, Hep-locked IV Behavior: Alert, pleasant, cooperative, motivated Oriented x 3 Follows simple - step commands consistently Pain: low back Pain Scale: 6 /10 Pain Relief Interventions Implemented: Ice, Positioning, Relaxation Training, RN aware and reports patient received medication according to time schedule, Mobility Passive ROM: Grossly WFL x 4 extremities; (L) UE immobilized Strength/Active ROM: Symmetrical and strong (B) Hemibody No overt motor deficit identified Exercise: (L) shoulder flex/ext AROM x 10 (L)hand/finger flexion/extension (full AROM attained) x 10 Mobility: Supine to sit at EOB : Mod (I); increased time to complete; NWB (L) UE Seated balance at EOB: (I) Sit to stand: (I); no device, NWB (L) UE Patient ambulates 350+ feet, no device: (I). Slow, steady gait pattern overall; mild antalgia over (L) LE that resolves with distance Stand to sit in BS chair/positioning in chair: (I); NWB (L) UE Endurance: WFL - no overt SOB noted with exertion. Patient Education: Orally reviewed all injuries Educated Patient in NWB status of (L) UE Educated Patient in role of Physical Therapy Evaluation/Tx during INPT Stay. Encouraged upright/OOB and ambulation on Unit 3x/day - Patient is agreeable. Encouraged (L) shoudler and hand AROM throughout day; Patient returns demo correctly Patient up in chair with call light in reach. 04/10/2023 6 Clicks Basic Mobility PT Difficulty turning over in bed 4 Difficulty sitting down and standing up from a chair with arms 4 Difficulty moving from lying on back to sitting on the side of the bed 4 Help from another person moving to and from bed to a chair 4 Help from another person to walk in hospital room 4 Help from another person climbing 3-5 steps with a railing 4 PT 6 Clicks Score 24 6 Click Score Guidelines: 1 - Total = Requires total assistance, or cannot do at all. 2 - A lot = Requires a lot of help (maximun to moderate assistance) Can use assistive devices. 3 - A little = Requires a little help (supervision, minimal assistance) Can use assistive devices. 4 - None = Does not require any help and does the activity independently. Can use assistive devices. Progressive Mobility Protocol Score: Level 4: Ambulatory in room / on Unit ASSESSMENT: Eduarda Williamson is a 32 year old yo male admit 04.08.2023 s/p fall 30 feet from telephone pole (work injury) with resultant injuries as detailed above. Patient presents this date as painful but motivated and cooperative; mobilizing at (I) level overall; compliant to NWB status of (L) UE Homegoing is functionally appropriate plan at MD discretion No further Acute PT needs identified at this time Thank you for Consult PLAN OF CARE: D/C Acute PT this date The evaluation findings and treatment plan were discussed with the patient The patient indicated understanding and agreement with the plan. Marilu Givens, PT, MPT (W) [phone] *Secure Chat with Questions NA = Not Assessed, I = Independent, WV = Modified Independent, Sup = Supervised, Set up = Physical Assistance for Set-up Only, Min = Minimal Assistance, Mod = Moderate Assistance, Max = Max assistance; Dep = Dependent; AROM = Active Range of Motion; PROM = Passive Range of Motion; MMT = Manual Muscle Test; LE = Lower Extremity Associated Order(s): IP OCCUPATIONAL THERAPY SERVICE REQUEST OCCUPATIONAL THERAPY INITIAL EVALUATION Patient seen from 1000 to 1013 on 5E unit for 13 minutes. 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 Full Bathroom on 1 level Bedroom on 1 level. Equipment available at home: no equipment OBJECTIVE: Patient Identification: patient verbalizing his/her name and date of . Risks and benefits of occupational therapy: Patient informed of risks and benefits of treatment Appearance: IV, Splint/cast LUE, and reclined in bed Alertness: WFL Affect: WNL Cooperation/Behavior: Appropriate dialogue with therapist Communication: WFL Pain: Pain ratin/10, Location: left forearm and right thigh Pain Relief Interventions Implemented: Ice Self Care: Assistance Level Dep Max Mod Min CG CS DS WV I Set-Up Comment Feeding X X Assist with opening packages Grooming/Hygiene X Bathing:UB X Pt instructed that he will need a cast cover for LUE to shower Bathing:LB X Based on functional reach Dressing:UB X To dress LUE in gown sleeve; cues for dressing strategy Dressing: LB X Pt able to don socks on his own Toileting X Transfers/Bed Mobility: Assistance Level Dep Max Mod Min CG CS DS WV I Set-Up Comment Toilet Transfers X Bed Transfers X Sit to stand from EOB and bedside chair Bed Mobility X Increased effort with cues to use right hand to assist Endurance for Self Care: Good Static Sitting Balance: Good Dynamic Sitting Balance: Good UE Motor: RHD; RUE AROM WFL with good strength LUE shoulder AROM WFL - pt encouraged to perform shoulder ROM and elevate LUE due assist with edema control; elbow/wrist immobilized; finger AROM WFL Vision/Perception: WFL Cognition: Orientation: Oriented to person, place, and time Follows Commands: WFL Attention: WNL Problem Solving: WFL Safety/Judgement: insight beginning to develop Sequencing: WFL Patient/Family Education: Instructed patient in roles of therapy, ADL strategies and LUE ROM Patient up in chair with call light in reach. DME: With Patients permission ordered no equipment via [employer] Order. If any questions contact [facility] DME Provider at [phone]. 04/10/2023 6 Clicks Daily Activity OT Help from another person Eating meals 4 Help from another person taking care of personal grooming 4 Help from another person bathing 4 Help from another person putting on and taking off regular upper body clothing 4 Help from another person putting on and taking off regular lower body clothing 4 Help from another person toileting 4 OT 6 Clicks Score 24 6 Click Score Guidelines: 1 - Unable = Total/Dependent Assist 2 - A lot = Max/Moderate Assist 3 - A little = Minimum/Contact Guard Assist/Supervision 4 - Non = Modified [place]/Independent ASSESSMENT: Patient is functionally appropriate for discharge home once medically cleared. No further Occupational Therapy Services reccommended at this time. PLAN: Eduarda Williamson will be d/c from acute OT services able to discuss the evaluation findings and treatment plan with the patient/family. Marilu Chaves OTR/L Prefer secure chat b. [phone] NA = Not Assessed, I = Independent, WV = Modified Independent, Sup = Supervised, Set up = Physical Assistance for Set-up Only, Min = Minimal Assistance, Mod = Moderate Assistance, Max = Max assistance; Dep = Dependent; AROM = Active Range of Motion;PROM=Passive Range of Motion; MMT = Manual Muscle Test; UB = Upper Body; LB = Lower Body documented in this encounter [facility] 04-10-2023 Plan of care note Problem: Routine Care: Goal: Patient care will be managed and maintained throughout hospital stay per unit specific routine care procedure Outcome: Progressing Note: Hourly rounding performed. Problem: Impaired Skin Integrity: Goal: Acheive wound healing without signs and symptoms of infection Outcome: Progressing Note: Shiva scale interventions in place. Problem: VTE Prophylaxis: Goal: Will be free of DVT Outcome: Progressing Note: SCDs and Lovenox ordered. Problem: Altered Neurological Status: Goal: Optimal neurological status will be maintained or regained Outcome: Progressing Note: Neuro assessed Q shift. Problem: Acute Pain: Goal: Ability to identify pain intensity on a pain scale and rate it consistently will be achieved and maintained Outcome: Progressing Note: Numeric pain scale in use. Goal: Understanding of proper administration and use of medicines will be achieved Outcome: Progressing Note: Pre/post pain assessed. Goal: Acceptable level of pain which allows the patient to achieve functional outcome goals Outcome: Progressing Note: Routine pain assessed. Problem: Safety: Goal: Patient will remain free of falls during hospital stay Outcome: Progressing Note: Moderate falls risk interventions in place. Goal: Free from injury during hospitalization Outcome: Progressing Problem: Discharge Planning: Goal: Discharge needs of the adult patient will be met Outcome: Progressing Note: Home pending medical clearance. Problem: Altered Elimination: Goal: Establishment of normal urinary function will be acheived and maintained Outcome: Met Goal: Establishment of individualized urinary routine Outcome: Met Problem: Impaired Mobility: Goal: Ability to tolerate increased activity will improve and be maintained Outcome: Met Goal: Ability to maintain or regain baseline function will be acheived Outcome: Met Problem: Fluid and Electrolyte Imbalance: Goal: Adequate fluid and electrolyte balance will be achieved and maintained Outcome: Met [facility] 04-10-2023 Hospital Discharge instructions Laura Caruso APRN-GONZALO - 04/10/2023 12:16 PM EST Discharge Instructions: Date of admission: 04/08/2023 Date of discharge: 04/11/23 You are being discharged to Home Follow up: - Please call to schedule your follow-up appointments - information provided separately. - You will need to follow up with: - Trauma, as needed, for your abdominal hematoma - Ortho Briana (Ismael) in 1-2 weeks - See below for information regarding contacting your primary care physician or establishing care at [facility] if you do not already have one. Wound Care and Showering/Bathing: - Okay to shower daily -- allow soap and water to run down your incisions. Do not scrub the area. - Do not get your cast wet for any reason. This includes protecting it from shower water and in the rain. - If you cannot keep your wounds completely sealed and dry then you should not shower. Sponge baths are the best way to maintain hygiene while your are healing. - To sponge bath, wet a washcloth with soapy water and gently wash body with the washcloth. Then use a dry washcloth to wipe off. - If you cannot maintain your balance in the shower, then you should not shower. Sponge baths are the best way to maintain hygiene while your are healing. - To sponge bath, wet a washcloth with soapy water and gently wash body with the washcloth. Then use a dry washcloth to wipe off. - If you begin to experience progressive and rapidly increasing pain that seems out of proportion to what you normally have been experiencing from your baseline pain after surgery/injury, or if your fingers become numb and/or turn blue and cold - you NEED TO CALL US IMMEDIATELY. Alternatively, you may come into the [facility] Emergency Department IMMEDIATELY for an emergent evaluation by the Trauma resident. Activity and Weight Bearing: - Do not lift, push, pull, or drag anything at all with your LEFT arm. - You have orders from your Orthopedic doctor to NOT use your LEFT ARM for any weight bearing. - Once you are cleared by your Orthopedic doctor (Dr. Guevara), you are to start attending outpatient Therapy. Incentive Spirometer: - Continue to use your Incentive Spirometer (IS) every hour at least 5-10 times per hour. - If you are having shortness or breath or difficulty breathing, go to the emergency department. Pain control: - For MILD to MODERATE pain (pain 1-6 out of 10 on a pain scale) take: -- Tylenol 325 mg, 1-2 tablets every 6 hours as needed. - If you are still having pain 30 min after taking Tylenol, add: -- Motrin 400 mg, 1 tablet every 6 hours as needed. -Wait 30 minutes to 1 hour after taking Tylenol and Motrin, then reassess your pain. - If you are still having pain, and it is SEVERE pain (pain 7-10 out of 10 on pain scale) take: -- Take Oxycodone 5 mg, 1 tablet. You may take 1 tablet every 6 hours for as needed for severe pain . - It is okay to take Tylenol, Motrin, and Oxycodone together if needed. - If you are having muscle cramps or muscle spasms, take Robaxin as prescribed. - If taking Robaxin and Oxycodone, space them out by 1 hour. - Please begin to wean off of your pain medications as soon as possible. -- To do this, start taking Oxycodone every 8 hours instead of every 6, then every 12 hours, then only once per day if needed. Then stop. You may use Motrin and Tylenol until your pain is diminished enough for you to tolerate your pain. - Please do not drive within 24 hours of taking Oxycodone or any opiate medication. Update your primary care physician or establish care: Please see your primary care physician at the next available appointment for follow up. Please call either on the day of your discharge, or the day after, to make the appointment. If you are followed by a managed care company or if your insurance requires, call your physician for authorization to be seen in a specialty clinic. If you do not have a primary physician please call [phone] for guidance on finding a [facility] provider. If you have questions or concerns , if your condition worsens or you develop new symptoms please call the [facility] Line at [phone]. The following attachments cannot be sent through Care Everywhere.Forearm Fracture Discharge Instructions (Mauritanian)Cast Care (Mauritanian)Blunt Abdominal Trauma Discharge Instructions (Mauritanian)Radius Fracture Discharge Instructions (Mauritanian)documented in this encounter [facility] 04-10-2023 Note OCCUPATIONAL THERAPY INITIAL EVALUATION Patient seen from 1000 to 1013 on 5E unit for 13 minutes. 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 Full Bathroom on 1 level Bedroom on 1 level. Equipment available at home: no equipment OBJECTIVE: Patient Identification: patient verbalizing his/her name and date of . Risks and benefits of occupational therapy: Patient informed of risks and benefits of treatment Appearance: IV, Splint/cast LUE, and reclined in bed Alertness: WFL Affect: WNL Cooperation/Behavior: Appropriate dialogue with therapist Communication: WFL Pain: Pain ratin/10, Location: left forearm and right thigh Pain Relief Interventions Implemented: Ice Self Care: Assistance Level Dep Max Mod Min CG CS DS WV I Set-Up Comment Feeding X X Assist with opening packages Grooming/Hygiene X Bathing:UB X Pt instructed that he will need a cast cover for LUE to shower Bathing:LB X Based on functional reach Dressing:UB X To dress LUE in gown sleeve; cues for dressing strategy Dressing: LB X Pt able to don socks on his own Toileting X Transfers/Bed Mobility: Assistance Level Dep Max Mod Min CG CS DS WV I Set-Up Comment Toilet Transfers X Bed Transfers X Sit to stand from EOB and bedside chair Bed Mobility X Increased effort with cues to use right hand to assist Endurance for Self Care: Good Static Sitting Balance: Good Dynamic Sitting Balance: Good UE Motor: RHD; RUE AROM WFL with good strength LUE shoulder AROM WFL - pt encouraged to perform shoulder ROM and elevate LUE due assist with edema control; elbow/wrist immobilized; finger AROM WFL Vision/Perception: WFL Cognition: Orientation: Oriented to person, place, and time Follows Commands: WFL Attention: WNL Problem Solving: WFL Safety/Judgement: insight beginning to develop Sequencing: WFL Patient/Family Education: Instructed patient in roles of therapy, ADL strategies and LUE ROM Patient up in chair with call light in reach. DME: With Patients permission ordered no equipment via [employer] Order. If any questions contact [facility] DME Provider at [phone]. 04/10/2023 6 Clicks Daily Activity OT Help from another person Eating meals 4 Help from another person taking care of personal grooming 4 Help from another person bathing 4 Help from another person putting on and taking off regular upper body clothing 4 Help from another person putting on and taking off regular lower body clothing 4 Help from another person toileting 4 OT 6 Clicks Score 24 6 Click Score Guidelines: 1 - Unable = Total/Dependent Assist 2 - A lot = Max/Moderate Assist 3 - A little = Minimum/Contact Guard Assist/Supervision 4 - Non = Modified [place]/Independent ASSESSMENT: Patient is functionally appropriate for discharge home once medically cleared. No further Occupational Therapy Services reccommended at this time. PLAN: Eduarda Williamson will be d/c from acute OT services able to discuss the evaluation findings and treatment plan with the patient/family. Marilu Chaves OTR/L Prefer secure chat b. [phone] NA = Not Assessed, I = Independent, WV = Modified Independent, Sup = Supervised, Set up = Physical Assistance for Set-up Only, Min = Minimal Assistance, Mod = Moderate Assistance, Max = Max assistance; Dep = Dependent; AROM = Active Range of Motion;PROM=Passive Range of Motion; MMT = Manual Muscle Test; UB = Upper Body; LB = Lower Body [facility] [place] 04-10-2023 Consult note Associated Order (s): IP OCCUPATIONAL THERAPY SERVICE REQUEST OCCUPATIONAL THERAPY INITIAL EVALUATION Patient seen from 1000 to 1013 on 5E unit for 13 minutes. 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 Full Bathroom on 1 level Bedroom on 1 level. Equipment available at home: no equipment OBJECTIVE: Patient Identification: patient verbalizing his/her name and date of . Risks and benefits of occupational therapy: Patient informed of risks and benefits of treatment Appearance: IV, Splint/cast LUE, and reclined in bed Alertness: WFL Affect: WNL Cooperation/Behavior: Appropriate dialogue with therapist Communication: WFL Pain: Pain ratin/10, Location: left forearm and right thigh Pain Relief Interventions Implemented: Ice Self Care: Assistance Level Dep Max Mod Min CG CS DS WV I Set-Up Comment Feeding X X Assist with opening packages Grooming/Hygiene X Bathing:UB X Pt instructed that he will need a cast cover for LUE to shower Bathing:LB X Based on functional reach Dressing:UB X To dress LUE in gown sleeve; cues for dressing strategy Dressing: LB X Pt able to don socks on his own Toileting X Transfers/Bed Mobility: Assistance Level Dep Max Mod Min CG CS DS WV I Set-Up Comment Toilet Transfers X Bed Transfers X Sit to stand from EOB and bedside chair Bed Mobility X Increased effort with cues to use right hand to assist Endurance for Self Care: Good Static Sitting Balance: Good Dynamic Sitting Balance: Good UE Motor: RHD; RUE AROM WFL with good strength LUE shoulder AROM WFL - pt encouraged to perform shoulder ROM and elevate LUE due assist with edema control; elbow/wrist immobilized; finger AROM WFL Vision/Perception: WFL Cognition: Orientation: Oriented to person, place, and time Follows Commands: WFL Attention: WNL Problem Solving: WFL Safety/Judgement: insight beginning to develop Sequencing: WFL Patient/Family Education: Instructed patient in roles of therapy, ADL strategies and LUE ROM Patient up in chair with call light in reach. DME: With Patients permission ordered no equipment via [employer] Order. If any questions contact [facility] DME Provider at [phone]. 04/10/2023 6 Clicks Daily Activity OT Help from another person Eating meals 4 Help from another person taking care of personal grooming 4 Help from another person bathing 4 Help from another person putting on and taking off regular upper body clothing 4 Help from another person putting on and taking off regular lower body clothing 4 Help from another person toileting 4 OT 6 Clicks Score 24 6 Click Score Guidelines: 1 - Unable = Total/Dependent Assist 2 - A lot = Max/Moderate Assist 3 - A little = Minimum/Contact Guard Assist/Supervision 4 - Non = Modified [place]/Independent ASSESSMENT: Patient is functionally appropriate for discharge home once medically cleared. No further Occupational Therapy Services reccommended at this time. PLAN: Eduarda Williamson will be d/c from acute OT services able to discuss the evaluation findings and treatment plan with the patient/family. Marilu Chaves OTR/L Prefer [employer] b. [phone] NA = Not Assessed, I = Independent, WV = Modified Independent, Sup = Supervised, Set up = Physical Assistance for Set-up Only, Min = Minimal Assistance, Mod = Moderate Assistance, Max = Max assistance; Dep = Dependent; AROM = Active Range of Motion;PROM=Passive Range of Motion; MMT = Manual Muscle Test; UB = Upper Body; LB = Lower Body [facility] 04-10-2023 History of Present illness Narrative Images from the original note were not included. GENERAL INFORMATION TRAUMA FLOOR - STAFF NOTE Patient Name: Eduarda Williamson Admission Date: 04/08/2023 Patient seen and examined on 04/10/23 INTERVAL HISTORY/EVENTS Background: Eduarda Williamson is a 32 year old male with no significant PMHx [facility] by [facility]. 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 -LOC -headstrike -AC/AP. [facility] demonstrated a small R PTX, SMA artery dissection with active hemorrhage and L forearm fracture and was transferred to [facility] for further care. 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 CTA redemonstrates the focal hematoma in the RLQ with no evidence of active extravasation. No PTX on imaging. Mild increase in the amount of hemoperitoneum which abuts loops of lbowel. Admitted to trauma [facility] for serial abdominal exams. LUIS EE splinted by ortho. Hospital Course: 04/08/2023: Fall from ht. Tx'd to [facility] from [facility] for serial abdominal exams and orthopedic consultation. 04/09: Abdominal exams benign. H/H stable. Admitted to Trauma [facility]. 24 Hour Events: This is my first time meeting this patient. No acute overnight events. Pt endorsing +flatus and tolerating clear liquid diet. Pain is stable, endorsing mild, intermittent abdominal tenderness that continues to improve since admit. Also endorsing R thigh pain- on exam, motor and sensation intact with no obvious deformity. Labs Reviewed: BMP stable, no leukocytosis, mild downtrend H/H 11.8 (12.5) Vital Signs reviewed. Afebrile, Not tachycardic, normotensive, Sats 99% on room air Intake/Output PO: 905ml UOP: 2075ml +3x Stool: 0x, Last BM [employer] on 2.9.24 ----- PHYSICAL EXAM ----- Vital Signs: Vital sign ranges over the past 24 hours (retrieved 04/10/2023 at 6:44 AM): Tmax (24 hours): 98.9 F (37.2 C) Pulse Av.9 Min: 76 Max: 101 Systolic (24hrs), Av , Min:113 , Max:163 Diastolic (24hrs), Av, Min:69, Max:97 MAP (mmHg) Av.9 mmHg Min: 76 mmHg Max: 114 mmHg Resp Av.2 Min: 12 Max: 25 SpO2 Av.3 % Min: 95 % Max: 100 % ----- PHYSICAL EXAM ----- GENERAL: NAD lying in bed, pleasant and conversant NEURO: GCS 15, no focal neurologic deficits. HEENT: Normocephalic CARDIOVASCULAR: RRR, No MRG PULMONARY: CTAB on RA, unlabored respirations ABDOMINAL: S/ND/NT EXTREMITIES: No edema, HENNING. R thigh mildy TTP. Splint LUE, unable to assess radial pulse, cap refill <3 seconds, MSPs intact. SKIN: [facility] LABORATORY RESULTS (LAST 24 HOURS) CBC/PT/INR WBC RBC Hgb Hct MCV RDW Plt PT aPTT INR 04/10/23210 9.8 4.00 11.8 35.3 88 13.9 185 04/09/23 1121 10.8 4.31 12.5 37.7 87 14.1 198 Basic Metabolic Panel Na K Cl CO2 Gap Glu BUN Cr Ca Mg PO4 04/10/23210 137 Comment: Note updated reference ranges. 4.1 Comment: Note updated reference ranges. Note updated reference ranges. 102 Comment: Note updated reference ranges. 26 Comment: Note updated reference ranges. 13 87 13 Comment: Note updated reference ranges. 0.85 Comment: Note updated reference ranges. 8.9 Comment: Note updated reference ranges. 04/10/23210 4.4 Comment: Note updated reference ranges. 04/10/23210 1.8 Comment: Note updated reference ranges. Fingerstick Glucose (last 72 hours) None IMAGING RESULTS (PERSONALLY REVIEWED) XR L Forearm- Post splint image: IMPRESSION: Acute, comminuted, minimally displaced fracture of the mid radial diaphysis. No radiopaque foreign body identified. All admit imaging and follow up imaging reviewed. ASSESSMENT & PLAN --- Diagnoses: 1. S/p Fall from height, ~30ft (ladder) 04/08/2023 2. Traumatic mesenteric hematoma 3. Left radial shaft fracture 4. Small R apical pneumothorax 5. Acute pain due to trauma No past medical history on file. Incidental Findings: None on imaging, reviewed 04/10. Plan: Neurologic: Acute pain d/t trauma. Pain well controlled. - Continue Tylenol 1000mg q6h scheduled - Wean Oxycodone to 2.5-5 mg q4h prn moderate-severe pain Cardiovascular: HR/BP stable -Continue VS per unit protocol Respiratory: Tiny R apical PTX on FT imaging.unlabored on RA. 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 No bowel injury/active extravasation. Serial abdominal exams stable. Passing flatus, tolerating clears - Advance to regular diet - Continue bowel regimen of senna, miralax, prn dulcolax Renal/Electrolytes: BMP WNL. Voiding spontaneously - No need for IVF - Daily BMP no longer indicated, obtain PRN Heme: Traumatic mesenteric hematoma. H/H stable. -VS per unit protocol - No indication for transfusion -CBC in am ID: - No indication for abx Endocrine: - No glycemic issues MSK: L radial fracture (Ortho- Hand, STS, OR as outpatient. R thigh pain- no injury on imaging. - PT/OT consulted, recs pending - Progressive mobility procedure - NWB +LUE - Spines cleared - Ortho/Hand: - Plan for outpatient surgical mgmt, may consider inpatient if still admitted 04/15 - NWB LUE, sugartong splint - Follow up with ortho hand (Ismael) in 1 week PPX: VTE: Continue SCDs and holding chemoppx due to hematoma - Stress Ulcer PPx: Not indicated. Tubes/Lines/Drains - Maintain PIVs Dispo: Anticipate medical clearance for discharge tomorrow pending tolerance of regular diet Follow up: - Trauma TBD - Ortho (Ismael) in 1-2 weeks Laura Caruso APRN, [facility] Trauma Surgery Surgical Critical Care Pager: [phone] *For urgent issues arising after 5PM during the week or on weekends/holiday, please page the trauma resident manager environmental health at [phone]. This patient's plan of care was discussed with Trauma Floor attending, Dr. Ibarra. Division of Trauma, Surgical Critical Care, S Ticket to Roll Note . Provider Called Report To (Enter Provider Name, Service, and Time): Leandra Velázquez. Trauma Surgery. 1936, who is the RUP. The patient is transferring from ED, room # 48, to Trauma [address], room # 5504. The patient was added to the Trauma Surgery list. Tiara Haji MD RUP = Receiving unit provider RNF = Regular nursing floor Serial abdominal exam at this time: soft non tender without guarding or rebound and states abdominal pain is improving Hiro Porter DO Serial abdominal exam at this time: soft non tender without guarding or rebound Hiro Porter DO [facility] Department of Surgery Division of Trauma Surgery, Acute Care Surgery, Critical Care, and [place] TRAUMA SURGERY HISTORY AND PHYSICAL Eduarda Williamson [id number] ASSESSMENT: Eduarda Williamson is a 32 year old male , with no significant PMH, who presents as a transfer from [facility] after a fall from 30ft from [place]. INJURIES: 1. Stable 2.3 x 2.2 cm focal hematoma in the right lower quadrant mesentery consistent with traumatic mesenteric hematoma. There is no evidence of active vascular contrast extravasation. 2. There is a relatively mild/moderate amount of hemoperitoneum which is slightly increased compared to the prior study of 04/08/2023 at 2:58 PM. 3. Some of the hemoperitoneum abuts bowel loops. There is no other direct evidence of bowel injury. A follow-up CT abdomen and pelvis with IV and oral contrast can be considered in 12-24 hours for increased sensitivity. 4. There is no pneumothorax on this study, although the right lung apex is limited due to streak artifact from contrast bolus. 5. Comminuted radial shaft fracture PLAN: Admit to Trauma Surgery RNF Unit Neuro: -No pain control at this time Cardiac: Monitor vitals. Pulm: Respiratory assesor protocol GI: NPO but ok for ice chips Serial abdominal exams q4-6h Renal: mIVF No Carney Monitor I&O Daily BMP- replace PRN Heme: No indication for transfusion at this time AM CBC Endo: No glycemic issues at this time. ID: No indication for antibiotics at this time. MSK: Ortho consult for L midshaft radius fracture; recommendations pending CTLS cleared Progressive mobility protocol PT/OT Prophylaxis: Hold chemoprophylaxis for now SCDs No indication for stress ulcer prophylaxis at this time. Final ED disposition: RNF Follow up: TBD Patient discussed with Attending Trauma Surgeon, Dr. Rosa Porter DO Teaching Physician Note: I saw and evaluated the patient. I personally obtained the ortez and critical portions of the history and physical exam. I reviewed the resident's documentation and discussed the patient with the resident. I agree with the resident's medical decision making as documented in the resident's note. Mesenteric hematoma no extrav Hematoma abuts bowel Admit for serial exams--ok for ice chips given lower suspicion for injury Kathryn Lee MD documented in this encounter [facility] 04-09-2023 Plan of care note Problem: Routine Care: Goal: Patient care will be managed and maintained throughout hospital stay per unit specific routine care procedure Outcome: Progressing Note: Purposeful hourly rounding performed. Problem: Impaired Skin Integrity: Goal: Acheive wound healing without signs and symptoms of infection Outcome: Progressing Note: LUE sugartong splint intact. Problem: Altered Elimination: Goal: Establishment of normal urinary function will be acheived and maintained Outcome: Progressing Note: Carney removed at 1800 per order- patient due for spontaneous void. Goal: Establishment of individualized urinary routine Outcome: Progressing Problem: Impaired Mobility: Goal: Ability to tolerate increased activity will improve and be maintained Outcome: Progressing Note: NWB LUE, PT/OT. Goal: Ability to maintain or regain baseline function will be acheived Outcome: Progressing Problem: VTE Prophylaxis: Goal: Will be free of DVT Outcome: Progressing Problem: Fluid and Electrolyte Imbalance: Goal: Adequate fluid and electrolyte balance will be achieved and maintained Outcome: Progressing Problem: Altered Neurological Status: Goal: Optimal neurological status will be maintained or regained Outcome: Progressing Problem: Acute Pain: Goal: Ability to identify pain intensity on a pain scale and rate it consistently will be achieved and maintained Outcome: Progressing Note: Patient aware of PRN pain medications. Will continue to assess pain throughout shift and medicate as indicated. Goal: Understanding of proper administration and use of medicines will be achieved Outcome: Progressing Goal: Acceptable level of pain which allows the patient to achieve functional outcome goals Outcome: Progressing Problem: Safety: Goal: Patient will remain free of falls during hospital stay Outcome: Progressing Goal: Free from injury during hospitalization Outcome: Progressing Problem: Discharge Planning: Goal: Discharge needs of the adult patient will be met Outcome: Progressing [employer] 04-08-2023 Note Formatting of this n ote might be different from the original. AdmissionCare Guideline: Abdominal Trauma (Blunt), Inpatient Based on the indications selected for the patient, the bed status of Inpatient was determined to be MET The following indications were selected as present at the time of evaluation of the patient: - Positive diagnostic findings, including 1 or more of the following: - Imaging findings requiring surgery or inpatient care (eg, free fluid, hemorrhage, abdominal vascular injury, organ injury) AdmissionCare documentation entered by: Luis Eduardo Buenrostro [facility] [place] [employer], 27th edition, Copyright 2022 [facility] [place] [employer] All Rights Reserved. [id number] [employer] Work Phone: 04-08-2023 History of Present illness Narrative CAT 2 Pt is a 32yo M presenting to ED via [facility] as [facility] s/p fall 30ft from ladder at work, L ulnar fracture, -thinners, -LOC. 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 Pt denies LOC. Pt was [facility] to [facility], where he was diagnosed with small R pneumothorax and L ulnar fracture. SAMANTA called pt's mother Lacho Williamson [phone] to provide update on pt status. Lacho is on the way to ED and will be visiting shortly. PLAN: Pending. ROB Penaloza, ROVING MARKER, MA ED Water Supply Engineer documented in this encounter [facility] 04-08-2023 History and physical note Images from the original note were not included. [facility] Department of Surgery Division of Trauma Surgery, Acute Care Surgery, Critical Care, and [place] TRAUMA SURGERY HISTORY AND PHYSICAL Eduarda Williamson [id number] BASIC INJURY INFORMATION: Level of activation: Category 2 Trauma Mode of transport: Life Flight Mechanism of injury: Fall from height or stairs Complicating features: Not applicable Protective measures: Not applicable Date of Injury: 04/08/23 Time of Injury: Morning Patient origin: Transfer from outside facility HISTORY OF PRESENT INJURY: Eduarda Williamson is a 32 year old male (healthy) brought in by EMS as a transfer from [facility] after a fall from height. 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 On arrival to ED, he is alert, stable, and complaining of abdominal pain/discomfort and left arm pain. Denies loss of consciousness. 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 His left arm was placed in a sugar tong splint at OSH which was removed on arrival. Denies any formal reduction at OSH. He did not receive any blood products. Carney in place. Outside images obtained: CT head, c-spine, C/A/P Loss of consciousness: No Initial interventions: None Hemodynamic status in ED: None applicable PRIMARY SURVEY: Airway: Intact Breathing: Normal Breath Sounds: Breath sounds equal bilaterally. Circulation: Pulses: Normal Skin: Normal skin color, texture, and turgor. No rashes or lesions. Disability: Pupils: PERRL GCS: Best Eyes: 4 Best Verbal: 5 Best Motor: 6 Total: 15 SECONDARY SURVEY: Vitals: BP 133/81 Pulse (!) 105 Temp 98.5 F (36.9 C) (Oral) Resp 17 SpO2 97% Neurologic: Alert and oriented, appropriate, moves all extremities. Strength symmetrical, no sensory deficits. HEENT: Head: No lacerations, bone step-offs, or abrasions; midface stable to palpation. Laceration to left lip with dried blood but hemostatic. Eyes: PERRLA, conjunctiva/corneas without lesions. Patient reports he is wearing contacts. Ears: No hemotympanum Nose: Septum midline, no crepitus with motion. Throat: Oral cavity without trauma. Neck: No midline tenderness, lacerations, or wounds Chest: No crepitus or pain with palpation; no abrasions or contusions; no gross deformities Pulmonary: Breath sounds clear, symmetrical; no wheezes, rales, or consolidation Cardiovascular: Pulses: Bilateral radial, DP pulses are normal. Abdomen: Tender when palpating RUQ, abrasion to right upper quadrant , soft, non-peritonitic Rectal: No gross blood noted. Pelvis/Perineum: Pelvis is stable to palpation Musculoskeletal: Back/Spine: No step-off or deformity noted and Tender upon palpation of lower thoracic spine Extremities: Left UPPER extremity abnormality: tender over mid forearm with swelling, early ecchymosis forming . No open wounds. Additional exam findings: None FAST EXAM: Positive - perihepatic and perisplenic fluid PAST MEDICAL HISTORY: None PAST SURGICAL HISTORY: No previous surgeries. PRE-ADMISSION MEDICATIONS: Patient denies taking any medications. Anti-platelet use: No Anti-coagulant use: No ALLERGIES: NKDA SOCIAL HISTORY: Endorses tobacco use (< 1 ppd), < 2 EtOH drinks per week, and no other drug use Living status: Home Primary language: Mauritanian Functional status: Independent Impairments: None Assistive Devices Used: None FAMILY HISTORY: The patient's family history is non-contributory to this acute trauma. REVIEW OF SYSTEMS: Constitutional: Negative Eyes: Negative Ears/Nose/Mouth/Throat: Positive Respiratory: Negative Cardiovascular: Negative Gastrointestinal: Positive Genitourinary: Negative Musculoskeletal: Positive Neurologic: Negative Psychiatric: Negative Skin/Breast: Negative Endocrine: Negative Rheumatologic: Negative Allergic/Immunologic: Negative Significant positives: ENT, MSK, GI BASIC LABS No results found for this or any previous visit. RADIOLOGY: CXR: Pending CT HEAD (from OSH): Findings: No acute intracranial pathology. No acute cervical spine injury. There is a tiny right-sided pneumothorax. There are nonspecific areas of groundglass attenuation in the upper lobes. CT C/A/P (from OSH): Findings: Impression: There is a hematoma in the mesentery within the midline of the lower abdomen with contrast extravasation emanating from the distal branches of the SMA suggesting transection or rupture of the SMA with active hemorrhage. Blood products are noted in the RUQ, LUQ , in the mesentery, and within the pelvis. There is no evidence of fracture. There is a tiny pneumothorax anteriorly in the right upper chest with droplets of gas adjacent to the mediastinum. There is dependent atelectasis. CTA C/A/P: IMPRESSION: 1. Stable 2.3 x 2.2 cm focal hematoma in the right lower quadrant mesentery consistent with traumatic mesenteric hematoma. There is no evidence of active vascular contrast extravasation. 2. There is a relatively mild/moderate amount of hemoperitoneum which is slightly increased compared to the prior study of 04/08/2023 at 2:58 PM. 3. Some of the hemoperitoneum abuts bowel loops. There is no other direct evidence of bowel injury. A follow-up CT abdomen and pelvis with IV and oral contrast can be considered in 12-24 hours for increased sensitivity. 4. There is no pneumothorax on this study, although the right lung apex is limited due to streak artifact from contrast bolus. CT T/L SPINE: Findings: IMPRESSION: No acute fracture or traumatic malalignment of the thoracic or lumbar spine. XR right femur and R knee (from OSH): No acute bony injury. ASSESSMENT: Eduarda Williamson is a 32 year old male (healthy) brought in by EMS as a transfer from [employer] after a fall from height. 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 Recs pending Tertiary: Pending Wound Care Instructions: Pending Antibiotics: Pending Final ED disposition:Pending Does patient have a traumatic brain injury? NO Patient discussed with Attending Trauma Surgeon, Dr. Holt. Pau Pineda MD PGY1 Trauma Surgery Pager: [phone] Teaching Physician Note: I saw and evaluated the patient. I personally obtained the ortez and critical portions of the history and physical exam. I reviewed the resident's documentation and discussed the patient with the resident. I agree with the resident's medical decision making as documented in the resident's note. Ying Holt MD Division of Trauma, Critical Care, [place], and Emergency General Surgery Department of Surgery [facility] Pager: [phone] [facility] Work Phone: 04-08-2023 History and physical note Images from the original note were not included. [facility] Department of Surgery Division of Trauma Surgery, Acute Care Surgery, Critical Care, and [place] TRAUMA SURGERY HISTORY AND PHYSICAL Eduarda Williamson [id number] BASIC INJURY INFORMATION: Level of activation: Category 2 Trauma Mode of transport: Life Flight Mechanism of injury: Fall from height or stairs Complicating features: Not applicable Protective measures: Not applicable Date of Injury: 04/08/23 Time of Injury: Morning Patient origin: Transfer from outside facility HISTORY OF PRESENT INJURY: Eduarda Williamson is a 32 year old male (healthy) brought in by EMS as a transfer [facility] after a fall from height. 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 On arrival to ED, he is alert, stable, and complaining of abdominal pain/discomfort and left arm pain. Denies loss of consciousness. 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 His left arm was placed in a sugar tong splint at OSH which was removed on arrival. Denies any formal reduction at OSH. He did not receive any blood products. Carney in place. Outside images obtained: CT head, c-spine, C/A/P Loss of consciousness: No Initial interventions: None Hemodynamic status in ED: None applicable PRIMARY SURVEY: Airway: Intact Breathing: Normal Breath Sounds: Breath sounds equal bilaterally. Circulation: Pulses: Normal Skin: Normal skin color, texture, and turgor. No rashes or lesions. Disability: Pupils: PERRL GCS: Best Eyes: 4 Best Verbal: 5 Best Motor: 6 Total: 15 SECONDARY SURVEY: Vitals: BP 133/81 Pulse (!) 105 Temp 98.5 F (36.9 C) (Oral) Resp 17 SpO2 97% Neurologic: Alert and oriented, appropriate, moves all extremities. Strength symmetrical, no sensory deficits. HEENT: Head: No lacerations, bone step-offs, or abrasions; midface stable to palpation. Laceration to left lip with dried blood but hemostatic. Eyes: PERRLA, conjunctiva/corneas without lesions. Patient reports he is wearing contacts. Ears: No hemotympanum Nose: Septum midline, no crepitus with motion. Throat: Oral cavity without trauma. Neck: No midline tenderness, lacerations, or wounds Chest: No crepitus or pain with palpation; no abrasions or contusions; no gross deformities Pulmonary: Breath sounds clear, symmetrical; no wheezes, rales, or consolidation Cardiovascular: Pulses: Bilateral radial, DP pulses are normal. Abdomen: Tender when palpating RUQ, abrasion to right upper quadrant , soft, non-peritonitic Rectal: No gross blood noted. Pelvis/Perineum: Pelvis is stable to palpation Musculoskeletal: Back/Spine: No step-off or deformity noted and Tender upon palpation of lower thoracic spine Extremities: Left UPPER extremity abnormality: tender over mid forearm with swelling, early ecchymosis forming . No open wounds. Additional exam findings: None FAST EXAM: Positive - perihepatic and perisplenic fluid PAST MEDICAL HISTORY: None PAST SURGICAL HISTORY: No previous surgeries. PRE-ADMISSION MEDICATIONS: Patient denies taking any medications. Anti-platelet use: No Anti-coagulant use: No ALLERGIES: NKDA SOCIAL HISTORY: Endorses tobacco use (< 1 ppd), < 2 EtOH drinks per week, and no other drug use Living status: Home Primary language: Mauritanian Functional status: Independent Impairments: None Assistive Devices Used: None FAMILY HISTORY: The patient's family history is non-contributory to this acute trauma. REVIEW OF SYSTEMS: Constitutional: Negative Eyes: Negative Ears/Nose/Mouth/Throat: Positive Respiratory: Negative Cardiovascular: Negative Gastrointestinal: Positive Genitourinary: Negative Musculoskeletal: Positive Neurologic: Negative Psychiatric: Negative Skin/Breast: Negative Endocrine: Negative Rheumatologic: Negative Allergic/Immunologic: Negative Significant positives: ENT, MSK, GI BASIC LABS No results found for this or any previous visit. RADIOLOGY: CXR: Pending CT HEAD (from OSH): Findings: No acute intracranial pathology. No acute cervical spine injury. There is a tiny right-sided pneumothorax. There are nonspecific areas of groundglass attenuation in the upper lobes. CT C/A/P (from OSH): Findings: Impression: There is a hematoma in the mesentery within the midline of the lower abdomen with contrast extravasation emanating from the distal branches of the SMA suggesting transection or rupture of the SMA with active hemorrhage. Blood products are noted in the RUQ, LUQ , in the mesentery, and within the pelvis. There is no evidence of fracture. There is a tiny pneumothorax anteriorly in the right upper chest with droplets of gas adjacent to the mediastinum. There is dependent atelectasis. CTA C/A/P: IMPRESSION: 1. Stable 2.3 x 2.2 cm focal hematoma in the right lower quadrant mesentery consistent with traumatic mesenteric hematoma. There is no evidence of active vascular contrast extravasation. 2. There is a relatively mild/moderate amount of hemoperitoneum which is slightly increased compared to the prior study of 04/08/2023 at 2:58 PM. 3. Some of the hemoperitoneum abuts bowel loops. There is no other direct evidence of bowel injury. A follow-up CT abdomen and pelvis with IV and oral contrast can be considered in 12-24 hours for increased sensitivity. 4. There is no pneumothorax on this study, although the right lung apex is limited due to streak artifact from contrast bolus. CT T/L SPINE: Findings: IMPRESSION: No acute fracture or traumatic malalignment of the thoracic or lumbar spine. XR right femur and R knee (from OSH): No acute bony injury. ASSESSMENT: Eduarda Williamson is a 32 year old male (healthy) brought in by EMS as a transfer from [employer] after a fall from height. 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 Recs pending Tertiary: Pending Wound Care Instructions: Pending Antibiotics: Pending Final ED disposition:Pending Does patient have a traumatic brain injury? NO Patient discussed with Attending Trauma Surgeon, Dr. Holt. Pau Pineda MD PGY1 Trauma Surgery Pager: [phone] Teaching Physician Note: I saw and evaluated the patient. I personally obtained the ortez and critical portions of the history and physical exam. I reviewed the resident's documentation and discussed the patient with the resident. I agree with the resident's medical decision making as documented in the resident's note. Ying Holt MD Division of Trauma, Critical Care, [place], and Emergency General Surgery Department of Surgery [facility] Pager: [phone] documented in this encounter [facility] 04-08-2023 Emergency department Triage note Prehospital Medications: TXA Dilaudid Zofran [facility] 04-08-2023 Emergency department Note Prehospital Medications: TXA Dilaudid Zofran 32 y/o M fall off telephone pole aprox 30 ft. Transfer [facility] Images from the original note were not included. EMERGENCY DEPARTMENT - VISIT NOTE HISTORY OF PRESENT ILLNESS BASIC INJURY INFORMATION: Level of activation: Category 2 Trauma Mode of transport: Life Flight Mechanism of injury: Fall from height or stairs Complicating features: Not applicable Protective measures: Not applicable Date of Injury: 04/09/23 Time of Injury: Earlier today Patient origin: Transfer from outside facility [facility] The history is provided by the Patient and MLF. Eduarda Williamson is a 32 year old male presenting to the ED for fall from 30ft. Patient was working on telephone pole when he fell and landed on his back on concrete, denies LOC. 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 MLF reports patient tachycardic, otherwise vss en route. 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 Anticoagulation/Antiplatelet use: denies ---- REVIEW OF SYSTEMS ------ ROS: Negative other than as noted in HPI -------- PAST HISTORY Pertinent Past History: Per pt, previously healthy w/o sig PMH Pertinent Social History: Denies EtOH, drug use today ------ PHYSICAL EXAM PRIMARY SURVEY: Airway: Airway intact Breathing: Breath Sounds: Bilateral breath sounds Circulation: Pulses: Bilateral radial & DP pulses equal & palpable Skin: Warm & dry Disability: Pupils: Pupils equal and reactive GCS: Best Eyes: 4 Best Verbal: 5 Best Motor: 6 Total: 15 SECONDARY SURVEY: Vitals Recorded in This Encounter 04/08/2023 1830 04/08/2023199904/08/20230 04/09/2023 0000 04/09/2023 0035 BP: 135/76 137/92 131/70 133/67 -- Pulse: 104 106 105 95 -- Resp: 19 17 18 16 -- SpO2: 99 % 96 % 97 % 96 % -- Pain Score: -- -- -- -- Asleep Neurologic: Strength and sensation grossly intact in bilateral upper and lower extremities. Moves all extremities spontaneously. HEENT: Head: Small L forehead cephalohematoma. No Baldwin's sign or racoon eyes. Face: Midface stable Eyes: PERRL. Conjugate gaze. Gaze crosses midline. Ears: No hemotympanum bilaterally Nose: No obvious deformity or deviation. No nasal septal hematoma. Mouth: No evidence of intraoral trauma. Small abrasion L lower lip. Neck: Trachea midline. No midline cervical tenderness. No cervical step-offs or deformities. Chest: No clavicular or chest wall tenderness. No crepitus. No external evidence of trauma. Pulmonary: Breath sounds clear & equal bilaterally. No flail chest. Cardiovascular: Tachycardic & reg rhythm. No murmur Abdomen: Diffusely TTP, most prominent RUQ . No ecchymosis or external evidence of trauma other than small, superficial abrasion over RUQ. Pelvis/Perineum: Pelvis stable to compression. No blood at urethral meatus. Carney in place. Musculoskeletal: Back/Spine: Low thoracic spine TTP. No lumbar tenderness. No thoracic or lumbar step-offs or deformities. Extremities: RUE: No gross deformity, full pROM, no TTP LUE: Splinted on arrival. Ttp mid forearm with associated edema at this area & ecchymoses. No open wounds. Remains with good pulses throughout extremity. SILT. pROM intact throughout. Compartments soft. RLE: No gross deformity, ROM limited by pain, hip and thigh TTP LLE: No gross deformity, full pROM, no TTP Adjunct Studies: None --- ED COURSE IN [place] --- 1655. BP: 143/127. HR: 103. SpO2: 94. RR 15. 1657. BP: 147/82. HR: 102. SpO2: 98. RR 19. 1659. +FAST in LUQ and RUQ, not definitive in suprapubic region 1700. BP: 129/91. HR: 107. SpO2: 97. RR 18. 1703. BP: 133/81. HR: 103. SpO2: 97. RR 18. Consultations: Trauma is at bedside and assisted with evaluation and formulation of plan. ------ SCRIBE ATTESTATION ----- 04/09/2023, 1:30 AM. This note is prepared by Libby Rolon acting as Scribe for Nona Hutchison. All medical record entries made by the Scribe were at my direction and personally dictated by me. I have reviewed the record and confirm that the note above accurately reflects all work, treatment, procedures, and medical decision making performed by me. Nona Hutchison. MEDICAL DECISION MAKING and ED COURSE Course & Results Interpretation: ED Course as of 04/09/23 0130 [facility] Apr 08, [id number] LFT(!): Albumin 4.3 Bilirubin, Direct 0.08 Bilirubin, Total 0.4 Alkaline Phosphatase 68 ALT (SGPT) 70(!) AST (SGOT) 49(!) Protein, Total 6.6 Mild AST & ALT elevation [HS] 1816 Ethanol: <10 [HS] 1816 Lipase: 8 wnl [HS] 1816 INR: 0.94 [HS] 1817 COMPLETE BLOOD COUNT W/DIFF (RAPID RESPONSE LABS)(!): WBC 22.5(!) RBC 4.93 Hemoglobin 14.1 Hematocrit 43.3 MCV 88 MCH 28.6 MCHC 32.6 Platelet 245 RDW-CV% 14.2 MPV 7.4(!) Neutrophils 84.2(!) Neutrophil # 18.95(!) Lymphocytes 9.5(!) Lymph Absolute 2.14 Monocytes 5.8 Monocyte Absolute 1.30(!) Eosinophil 0.3 Eosinophil Absolute 0.06 Basophils 0.3 Basophil # 0.08 MDW 18 Leukocytosis. No anemia or thrombocytopenia [HS] 1818 BASIC METABOLIC PANEL(aka BMP) [CH8]: Glucose 106 Sodium 141 Potassium 3.9 Carbon Dioxide 26 Chloride 106 BUN 14 Creatinine 0.86 Calcium 9.4 Anion Gap 13 Estimated GFR 119 My independent interpretation after reviewing the currently available data: BMP without evidence of clinically significant electrolyte derangements, OSMIN or CKD. [HS] 1818 Lactate: 1.6 wnl [HS] 181 CTA C/A/P IMPRESSION: 1. Stable 2.3 x 2.2 cm focal hematoma in the right lower quadrant mesentery consistent with traumatic mesenteric hematoma. There is no evidence of active vascular contrast extravasation. 2. There is a relatively mild/moderate amount of hemoperitoneum which is slightly increased compared to the prior study of 04/08/2023 at 2:58 PM. 3. Some of the hemoperitoneum abuts bowel loops. There is no other direct evidence of bowel injury. A follow-up CT abdomen and pelvis with IV and oral contrast can be considered in 12-24 hours for increased sensitivity. 4. There is no pneumothorax on this study, although the right lung apex is limited due to streak artifact from contrast bolus. [HS] 193 Patient admitted trauma team per Dr. Lee (trauma attending) to trauma RNF [HS] ED Course User Index [HS] Nona Rojas MD [facility] Medications given in the ED: Medications lactated ringers iv infusion ( Intravenous IV New Bag 04/08/231925) acetaminophen (TYLENOL) tablet (1,000 mg Oral Given 04/08/232010) iohexol (OMNIPAQUE) 350 MG/ML injection (100 mL Intravenous Push Given 04/08/23 174) HYDROmorphone (DILAUDID) 0.2 MG/ML injection 0.4 mg (0.4 mg Intravenous Push Given 04/09/23 0117) Eduarda Williamson 32 year old with pmh as noted above presenting to the emergency department as a Category 2 trauma after fall from height with +hemoperitoneum & SMA dissection on OSH imaging . Primary exam with ABCs intact. Secondary survey as noted above, most significant for abdominal ttp and L forearm edema. Lab work with my independent interpretations as noted in ED course, most significant for leukocytosis & mild ast/alt elevation. Imaging shows stable mesenteric hematoma as noted in ED course. Patient managed with interventions as above. PLAN ADMIT: Based on today's ED evaluation, patient requires admission to trauma RNF for known mesenteric hematoma, L forearm fx, & for further treatment and evaluation. Patient/guardian was updated of need for admission and was agreeable to the plan. Trauma assumed care of patient as primary team while in ED. Patient was stable at time of transfer of care. Information from Independent Historian: See HPI - MLF Personal Interpretation of labs & imaging: See ED course. Interventions while in ED: See ED course and MDM narrative. Patient co-managed with Trauma Surgery Service. Case also discussed with: Orthopedics Evaluated by EM attending Jarrod Chandler IMPRESSION AND DISPOSITION Clinical Impression Diagnosis Comment Mesenteric hematoma, initial encounter [S36.892A] Fall from height of greater than 3 feet [W17.89XA] Closed fracture of shaft of left radius, unspecified fracture morphology, initial encounter [S52.302A] Dispo: Disposition: Admitted to Floor: Trauma Surgery Service. Report called to Hiro Porter. Trauma Surgery. 1935 (04/08/231938) The patient has received a medical screening examination and within reasonable clinical confidence the patient was stabilized within the capabilities of the emergency department and requires admission / observation. Counseling: Spoke with the patient and discussed today s findings, in addition to providing specific details for the plan of care and expected course. They were given the opportunity to ask questions. Nona Rojas MD EM PGY-2 Pager #[phone] Note has been documented by Libby Rolon on 04/08/2023 Associated attestation - Jarrod Chandler MD - 04/09/2023 4:06 PM EST ATTENDING NOTE I saw and evaluated the patient. I personally obtained the ortez and critical portions of the history and physical exam. I reviewed the resident's documentation and discussed the patient with the resident. I agree with the resident's medical decision making as documented in the resident's note. Jarrod Chandler MD documented in this encounter [facility] 04-08-2023 Emergency department Triage note 32 y/o M fall off telephone pole aprox 30 ft. [facility] 04-08-2023 Physician Emergency department Note Images from the original note were not included. EMERGENCY DEPARTMENT - VISIT NOTE HISTORY OF PRESENT ILLNESS BASIC INJURY INFORMATION: Level of activation: Category 2 Trauma Mode of transport: Life Flight Mechanism of injury: Fall from height or stairs Complicating features: Not applicable Protective measures: Not applicable Date of Injury: 04/09/23 Time of Injury: Earlier today Patient origin: [facility] The history is provided by the Patient and MLF. Eduarda Williamson is a 32 year old male presenting to the ED for fall from 30ft. Patient was working on telephone pole when he fell and landed on his back on concrete, denies LOC. 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 MLF reports patient tachycardic, otherwise vss en route. 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 Anticoagulation/Antiplatelet use: denies ---- REVIEW OF SYSTEMS ------ ROS: Negative other than as noted in HPI -------- PAST HISTORY Pertinent Past History: Per pt, previously healthy w/o sig PMH Pertinent Social History: Denies EtOH, drug use today ------ PHYSICAL EXAM PRIMARY SURVEY: Airway: Airway intact Breathing: Breath Sounds: Bilateral breath sounds Circulation: Pulses: Bilateral radial & DP pulses equal & palpable Skin: Warm & dry Disability: Pupils: Pupils equal and reactive GCS: Best Eyes: 4 Best Verbal: 5 Best Motor: 6 Total: 15 SECONDARY SURVEY: Vitals Recorded in This Encounter 04/08/2023 1830 04/08/2023199904/08/2023 2200 04/09/2023 0000 04/09/2023 0035 BP: 135/76 137/92 131/70 133/67 -- Pulse: 104 106 105 95 -- Resp: 19 17 18 16 -- SpO2: 99 % 96 % 97 % 96 % -- Pain Score: -- -- -- -- Asleep Neurologic: Strength and sensation grossly intact in bilateral upper and lower extremities. Moves all extremities spontaneously. HEENT: Head: Small L forehead cephalohematoma. No Baldwin's sign or racoon eyes. Face: Midface stable Eyes: PERRL. Conjugate gaze. Gaze crosses midline. Ears: No hemotympanum bilaterally Nose: No obvious deformity or deviation. No nasal septal hematoma. Mouth: No evidence of intraoral trauma. Small abrasion L lower lip. Neck: Trachea midline. No midline cervical tenderness. No cervical step-offs or deformities. Chest: No clavicular or chest wall tenderness. No crepitus. No external evidence of trauma. Pulmonary: Breath sounds clear & equal bilaterally. No flail chest. Cardiovascular: Tachycardic & reg rhythm. No murmur Abdomen: Diffusely TTP, most prominent RUQ . No ecchymosis or external evidence of trauma other than small, superficial abrasion over RUQ. Pelvis/Perineum: Pelvis stable to compression. No blood at urethral meatus. Carney in place. Musculoskeletal: Back/Spine: Low thoracic spine TTP. No lumbar tenderness. No thoracic or lumbar step-offs or deformities. Extremities: RUE: No gross deformity, full pROM, no TTP LUE: Splinted on arrival. Ttp mid forearm with associated edema at this area & ecchymoses. No open wounds. Remains with good pulses throughout extremity. SILT. pROM intact throughout. Compartments soft. RLE: No gross deformity, ROM limited by pain, hip and thigh TTP LLE: No gross deformity, full pROM, no TTP Adjunct Studies: None --- ED COURSE IN [place] --- 1656. BP: 143/127. HR: 103. SpO2: 94. RR 15. 1657. BP: 147/82. HR: 102. SpO2: 98. RR 19. 1659. +FAST in LUQ and RUQ, not definitive in suprapubic region 1700. BP: 129/91. HR: 107. SpO2: 97. RR 18. 1703. BP: 133/81. HR: 103. SpO2: 97. RR 18. Consultations: Trauma is at bedside and assisted with evaluation and formulation of plan. ------ SCRIBE ATTESTATION ----- 04/09/2023, 1:30 AM. This note is prepared by Libby Rolon acting as Scribe for Nona Hutchison. All medical record entries made by the Scribe were at my direction and personally dictated by me. I have reviewed the record and confirm that the note above accurately reflects all work, treatment, procedures, and medical decision making performed by me. Zoya Hutchisonh. MEDICAL DECISION MAKING and ED COURSE Course & Results Interpretation: ED Course as of 04/09/23 0130 Marlys Apr 08, 20231816 LFT(!): Albumin 4.3 Bilirubin, Direct 0.08 Bilirubin, Total 0.4 Alkaline Phosphatase 68 ALT (SGPT) 70(!) AST (SGOT) 49(!) Protein, Total 6.6 Mild AST & ALT elevation [HS] 1816 Ethanol: <10 [HS] 1817 Lipase: 8 wnl [HS] 1817 INR: 0.94 [HS] 1818 COMPLETE BLOOD COUNT W/DIFF (RAPID RESPONSE LABS)(!): WBC 22.5(!) RBC 4.93 Hemoglobin 14.1 Hematocrit 43.3 MCV 88 MCH 28.6 MCHC 32.6 Platelet 245 RDW-CV% 14.2 MPV 7.4(!) Neutrophils 84.2(!) Neutrophil # 18.95(!) Lymphocytes 9.5(!) Lymph Absolute 2.14 Monocytes 5.8 Monocyte Absolute 1.30(!) Eosinophil 0.3 Eosinophil Absolute 0.06 Basophils 0.3 Basophil # 0.08 MDW 18 Leukocytosis. No anemia or thrombocytopenia [HS] 1818 BASIC METABOLIC PANEL(aka BMP) [CH8]: Glucose 106 Sodium 141 Potassium 3.9 Carbon Dioxide 26 Chloride 106 BUN 14 Creatinine 0.86 Calcium 9.4 Anion Gap 13 Estimated GFR 119 My independent interpretation after reviewing the currently available data: BMP without evidence of clinically significant electrolyte derangements, OSMIN or CKD. [HS] 1818 Lactate: 1.6 wnl [HS] 1819 CTA C/A/P IMPRESSION: 1. Stable 2.3 x 2.2 cm focal hematoma in the right lower quadrant mesentery consistent with traumatic mesenteric hematoma. There is no evidence of active vascular contrast extravasation. 2. There is a relatively mild/moderate amount of hemoperitoneum which is slightly increased compared to the prior study of 04/08/2023 at 2:58 PM. 3. Some of the hemoperitoneum abuts bowel loops. There is no other direct evidence of bowel injury. A follow-up CT abdomen and pelvis with IV and oral contrast can be considered in 12-24 hours for increased sensitivity. 4. There is no pneumothorax on this study, although the right lung apex is limited due to streak artifact from contrast bolus. [HS] 193 Patient admitted trauma team per Dr. Lee (trauma attending) to trauma [facility] [HS] ED Course User Index [HS] Nona Rojas MD MDM Medications given in the ED: Medications lactated ringers iv infusion ( Intravenous IV New Bag 04/08/231925) acetaminophen (TYLENOL) tablet (1,000 mg Oral Given 04/08/232010) iohexol (OMNIPAQUE) 350 MG/ML injection (100 mL Intravenous Push Given 04/08/231742) HYDROmorphone (DILAUDID) 0.2 MG/ML injection 0.4 mg (0.4 mg Intravenous Push Given 04/09/23 011) Eduarda Williamson 32 year old with pmh as noted above presenting to the emergency department as a Category 2 trauma after fall from height with +hemoperitoneum & SMA dissection on OSH imaging . Primary exam with ABCs intact. Secondary survey as noted above, most significant for abdominal ttp and L forearm edema. Lab work with my independent interpretations as noted in ED course, most significant for leukocytosis & mild ast/alt elevation. Imaging shows stable mesenteric hematoma as noted in ED course. Patient managed with interventions as above. PLAN ADMIT: Based on today's ED evaluation, patient requires admission to trauma [facility] for known mesenteric hematoma, L forearm fx, & for further treatment and evaluation. Patient/guardian was updated of need for admission and was agreeable to the plan. Trauma assumed care of patient as primary team while in ED. Patient was stable at time of transfer of care. Information from Independent Historian: See HPI - MLF Personal Interpretation of labs & imaging: See ED course. Interventions while in ED: See ED course and MDM narrative. Patient co-managed with Trauma Surgery Service. Case also discussed with: Orthopedics Evaluated by EM attending Jarrod Chandler IMPRESSION AND DISPOSITION Clinical Impression Diagnosis Comment Mesenteric hematoma, initial encounter [S36.892A] Fall from height of greater than 3 feet [W17.89XA] Closed fracture of shaft of left radius, unspecified fracture morphology, initial encounter [S52.302A] Dispo: Disposition: Admitted to Floor: Trauma Surgery Service. Report called to Hiro Porter. Trauma Surgery. 1935 (04/08/231938) The patient has received a medical screening examination and within reasonable clinical confidence the patient was stabilized within the capabilities of the emergency department and requires admission / observation. Counseling: Spoke with the patient and discussed today s findings, in addition to providing specific details for the plan of care and expected course. They were given the opportunity to ask questions. Nona Rojas MD EM PGY-2 Pager #[phone] Note has been documented by Libby Rolon on 04/08/2023 Associated attestation - Jarrod Chandler MD - 04/09/2023 4:06 PM EST ATTENDING NOTE I saw and evaluated the patient. I personally obtained the ortez and critical portions of the history and physical exam. I reviewed the resident's documentation and discussed the patient with the resident. I agree with the resident's medical decision making as documented in the resident's note. Jarrod Chandler MD [facility] 11-08-2020 Note Infectious Disease COVID-19 COVID-19 is a respiratory infection that is caused by a virus called severe acute respiratory syndrome coronavirus 2 (SARS-CoV-2). The disease is also known as coronavirus disease or novel coronavirus. In some people, the virus may not cause any symptoms. In others, it may cause a serious infection. The infection can get worse quickly and can lead to complications, such as: ? Pneumonia, or infection of the lungs. ? Acute respiratory distress syndrome or ARDS. This is fluid build-up in the lungs. ? Acute respiratory failure. This is a condition in which there is not enough oxygen passing from the lungs to the body. ? Sepsis or septic shock. This is a serious bodily reaction to an infection. ? Blood clotting problems. ? Secondary infections due to bacteria or fungus. The virus that causes COVID-19 is contagious. This means that it can spread from person to person through droplets from coughs and sneezes (respiratory secretions). What are the causes? This illness is caused by a virus. You may catch the virus by: ? Breathing in droplets from an infected person's cough or sneeze. ? Touching something, like a table or a doorknob, that was exposed to the virus (contaminated) and then touching your mouth, nose, or eyes. What increases the risk? Risk for infection You are more likely to be infected with this virus if you: ? Live in or travel to an area with a COVID-19 outbreak. ? Come in contact with a sick person who recently traveled to an area with a COVID-19 outbreak. ? Provide care for or live with a person who is infected with COVID-19. Risk for serious illness You are more likely to become seriously ill from the virus if you: ? Are 65 years of age or older. ? Have a long-term disease that lowers your body's ability to fight infection (immunocompromised). ? Live in a retirement or long-term care facility. ? Have a long-term (chronic) disease such as: ? Chronic lung disease, including chronic obstructive pulmonary disease or asthma ? Heart disease. ? Diabetes. ? Chronic kidney disease. ? Liver disease. ? Are obese. What are the signs or symptoms? Symptoms of this condition can range from mild to severe. Symptoms may appear any time from 2 to 14 days after being exposed to the virus. They include: ? A fever. ? A cough. ? Difficulty breathing. ? Chills. ? Muscle pains. ? A sore throat. ? Loss of taste or smell. Some people may also have stomach problems, such as nausea, vomiting, or diarrhea. Other people may not have any symptoms of COVID-19. How is this diagnosed? This condition may be diagnosed based on: ? Your signs and symptoms, especially if: ? You live in an area with a COVID-19 outbreak. ? You recently traveled to or from an area where the virus is common. ? You provide care for or live with a person who was diagnosed with COVID-19. ? A physical exam. ? Lab tests, which may include: ? A nasal swab to take a sample of fluid from your nose. ? A throat swab to take a sample of fluid from your throat. ? A sample of mucus from your lungs (sputum). ? Blood tests. ? Imaging tests, which may include, X-rays, CT scan, or ultrasound. How is this treated? At present, there is no medicine to treat COVID-19. Medicines that treat other diseases are being used on a trial basis to see if they are effective against COVID-19. Your health care provider will talk with you about ways to treat your symptoms. For most people, the infection is mild and can be managed at home with rest, fluids, and wjtf-yeq-[id number] medicines. Treatment for a serious infection usually takes places in a hospital intensive care unit (ICU). It may include one or more of the following treatments. These treatments are given until your symptoms improve. ? Receiving fluids and medicines through an IV. ? Supplemental oxygen. Extra oxygen is given through a tube in the nose, a face mask, or a velazquez. ? Positioning you to lie on your stomach (prone position). This makes it easier for oxygen to get into the lungs. ? Continuous positive airway pressure (CPAP) or bi-level positive airway pressure (BPAP) machine. This treatment uses mild air pressure to keep the airways open. A tube that is connected to a motor delivers oxygen to the body. ? Ventilator. This treatment moves air into and out of the lungs by using a tube that is placed in your windpipe. ? Tracheostomy. This is a procedure to create a hole in the neck so that a breathing tube can be inserted. ? Extracorporeal membrane oxygenation (ECMO). This procedure gives the lungs a chance to recover by taking over the functions of the heart and lungs. It supplies oxygen to the body and removes carbon dioxide. Follow these instructions at home: Lifestyle ? If you are sick, stay home except to get medical care. Your health care provider will tell you how long to stay home. Call your health care provider before you go for medical care. ? Rest at h (more content not included)... [facility] note Diagnosis Closed displaced comminuted fracture of shaft of left radius, initial encounter- Primary Closed displaced comminuted fracture of shaft of left radius, initial encounter [facility] Closed fracture of shaft of left radius- Primary Closed fracture of shaft of radius (alone) Mesenteric hematoma, initial encounter Fall from height of greater than 3 feet Closed fracture of shaft of left radius, unspecified fracture morphology, initial encounter Tachycardia, unspecified Abnormal electrocardiogram (ECG) (EKG) Mesenteric hematoma, initial encounter Fall from ladder Accidental fall from ladder Closed displaced comminuted fracture of shaft of left radius, initial encounter [facility] Diagnosis Closed fracture of shaft of left radius- Primary Closed fracture of shaft of radius (alone) Post-op pain Other acute postoperative pain documented in this encounter [facility] Summary Purpose Family History No Family History Records FoundNo Family History Records FoundNo Family History Records FoundNo Family History Records Found Advance Directives No Advanced Directives Records Found Advance Directive Response Recorded Date/ Time Advance Directives No January 01, 2017 9:40am Latest Code Status on File Code Status Date Activated Date Inactivated Comments Full Code 04/08/2023 7:09 PM Question Answer Comments Documentation of decision process for this code status: Patient and surrogate unable or unavailable to discuss. There is no previous documentation of code status. Defaulting to Full Code Latest Code Status on File Code Status Date Activated Date Inactivated Comments Full Code 04/08/2023 7:09 PM Question Answer Comments Documentation of decision process for this code status: Patient and surrogate unable or unavailable to discuss. There is no previous documentation of code status. Defaulting to Full Code Latest Code Status on File Code Status Date Activated Date Inactivated Comments Full Code 04/08/2023 7:09 PM 04/11/2023 4:12 PM Question Answer Comments Documentation of decision process for this code status: Patient and surrogate unable or unavailable to discuss. There is no previous documentation of code status. Defaulting to Full Code Latest Code Status on File Code Status Date Activated Date Inactivated Comments Full Code 04/08/2023 7:09 PM 04/11/2023 4:12 PM Question Answer Comments Documentation of decision process for this code status: Patient and surrogate unable or unavailable to discuss. There is no previous documentation of code status. Defaulting to Full Code Chief Complaint and Reason for Visit Chief Complaint Fall Reason for Referral Specialty Diagnoses / Procedures Referred By Contac t Referred To Contact Occupational Therapy Diagnoses Closed displaced comminuted fracture of shaft of left radius, initial encounter Procedures OT EVAL LOW COMPLEX 30 MIN OT EVAL MOD COMPLEX 45 MIN OT EVAL HIGH COMPLEX 60 MIN WK COMP WORK CONDITIONING Carmela Guevara MD [address] [place] [address] [place] [address] Occ Therapy [address] [place] [address] Referral ID Status Reason Start Date Expiration Date Visits Requested Visits Authorized [id number] [facility] 04/09/2024 10 10 Scheduling Instructions SCHEDULING INSTRUCTIONS: Call [phone] to schedule your Occupational Therapy appointment. We offer therapy services at many convenient locations. Please arrive 20 minutes prior to your appointment to register. It is important to bring your insurance cards and a personal identification card to your appointment. If you are unable to keep your appointment, cancel or reschedule by calling [phone] or via [employer]. Thank you! Question Answer Is this for a new patient or continuation of treatment? (New = hasn't been seen for referring dx/problem for outpatient therapy in the last 3 mo.) New Patient Is the reason for this visit Workers' Comp related? Yes What is the reason for visit? Work Conditioning Is this Urgent or Chronic? Urgent/Acute Precautions? n/a Type of splint volar short arm splint Comments ROM forearm/wrist Specialty Diagnoses / Procedures Referred By Stephanie cowart Referred To Contact Anesthesiology Diagnoses Closed displaced comminuted fracture of shaft of left radius, initial encounter Carmela Guevara MD [address] [place] [address] [place] [address] S PRE ADMISSION TESTING [address] [place] [address] Referral ID Status Reason Start Date Expiration Date V isits Requested Visits Authorized [id number] Authorized 04/09/2023 04/09/2024 1 1 Scheduling Instructions Your surgical team will reach out to you to schedule a pre-admission testing appointment. Question Answer Reason for consult? Recommended PAT Risk Score Additional Source Comments (unrecognized sect ion and content) No Status Records FoundNo Status Records FoundNo Status Records FoundNo Status Records Found INFORMATION SOURCE (unrecogn ized section and content) DATE CREATED AUTHOR 05/09/2021 Yash [facility] DATE CREATED AUTHOR AUTHOR'S FAHAD JORDAN 03/02/2023 [facility] DATE CREATED AUTHOR AUTHOR'S ORGANIZ ATION 04/13/2023 [facility] DATE CREATED AUTHOR AUTHOR'S ORGANIZ ATION 05/04/2023 [facility] [employer] [facility] Care Teams (unrecognized sec tion and content) Team Status: Active Member Role Status Dates Tito Whitney MD Primary Care Provider Active Team Status: Inactive Member Role Status Dates Leonides Walker DO Emergency Provider Active Start: April 08, 2023 End: April 08, 2023 Michael Marsh DO RES Active Start: April 08, 2023 End: April 08, 2023 Tito Whitney MD Primary Care Provider Active Start: April 08, 2023 End: April 08, 2023 Goals (unrecognized section and content) Goals may be documented in a n alternate section Reason for Visit (unrecogniz ed section and content) Reason Comments Trauma/complex Medical Situation Specialty Diagnoses / Procedures Referred By [employer] t Referred To Contact Emergency Medicine Diagnoses Contusion of other intra-abdominal organs, initial encounter TRAUMA: fall with mesenteric artery dissection Procedures n/a [facility] [place] [address] Phone: [phone] [facility] [employer] [address] [place], [place] [address] [place] [address] Phone: [phone] Referral ID Status Reason Start Date Expiration Date Visits Re quested Visits Authorized [id number] 3 3 Specialty Diagnoses / Procedures Referred By [employer] t Referred To Contact Ambulatory Surgery Diagnoses Closed displaced comminuted fracture of shaft of left radius, initial encounter Closed displaced comminuted fracture of shaft of left radius, initial encounter [S52.352A] Procedures REDUCTION, OPEN, RADIUS Carmela Guevara MD [address] [place], [place] [address] [address] [employer] [address] [place], [place] [address] [place] [address] Phone: [phone] Referral ID Status Reason Start Date Expiration Date Visits Re quested Visits Authorized [id number] 3 3 Scheduled Active and Recently Administ ered Medications (unrecognized section and content) Medication Order 04/09/2023 04/10/2023 04/11/2023 acetaminophen (TYLENOL) tablet 1,000 mg, Oral, Every 6 hours, First dose on Marlys 04/08/23 at 2004, Until Discontinued 203 (Hold/Not Given - Provider: Guanaco Ram RN - Reason: Not indicated)0849 (Given - Provider: Constance Barnett RN)1328 (Given - Provider: Madyson Nicolas RN)2153 (Given - Provider: Alejandra Roberts RN) 040 (Hold/Not Given - Provider: Alejandra Roberts RN - Reason: Patient sleeping)08 (Given - Provider: Uri Cade)130 (Given - Provider: rUi Cade)2050 (Given - Provider: Alejandra Roberts RN) 024 (Given - Provider: Alejandra Roberts RN)0850 (Given - Provider: Krystal Dominguez RN)1500 (Due - Provider: Krystal Dominguez RN)2003 (Due) enoxaparin (LOVENOX) 40 MG/0.4ML injection 40 mg 40 mg (rounded from 35 mg = 0.5 mg/kg 70 kg Order-specific weight), Subcutaneous, 2 TIMES DAILY, First dose on Wed04/09/23 at 2100, Until Discontinued 2153 (Given - Provider: Alejandra Roberts RN) 08 (Given - Provider: Uri Cade)2050 (Given - Provider: Alejandra Roberts RN) 0850 (Given - Provider: Krystal Domingeuz RN)2099 (Due) HYDROmorphone (DILAUDID) 0.2 MG/ML injection 0.4 mg (COMPLETED) 0.4 mg, Intravenous Push, ONCE, 1 dose, On Wed04/09/23 at 0132 0117 (Given - Provider: Guanaco Ram RN) polyethylene glycol (MIRALAX) 17 g packet 17 g, Oral, DAILY, First dose on Wed04/09/23 at 1307, Until Discontinued 130 (Hold/Not Given - Provider: Madyson Nicolas RN - Reason: NPO) 0813 (Given - Provider: Uri Cade) 0850 (Hold/Not Given - Provider: Krystal Dominguez RN - Reason: Clinical contraindications) senna (SENOKOT) tablet 8.6 mg, Oral, AT BEDTIME, First dose on Wed04/09/23 at 2200, Until Discontinued 2153 (Given - Provider: Alejandra Roberts RN) 2100 (Hold/Not Given - Provider: Alejandra Roberts RN - Reason: Clinical contraindications) 2200 (Due) PRN Medication Order 04/09/2023 04/10/2023 04/11/2023 albuterol (PROVENTIL) (2.5 MG/3ML) 0.083% nebulizer solution 2.5 mg, Nebulization, EVERY 4 HOURS PRN, Starting on 04/09/23 at 2345, Until Discontinued, Shortness of Breath, Wheezing 0008 (Given - Provider: Sandy Moore RT) oxyCODONE immediate release tablet (CANCELED) 10 mg, Oral, EVERY 4 HOURS PRN, Starting on Wed04/09/23 at 1211, Until 04/10/23 at 1011, Severe Pain (pain score 7,8,9,10) 1328 (Given - Provider: Madyson Nicolas RN)1750 (Given - Provider: Yolanda Laboy RN)2155 (Given - Provider: Alejadnra Roberts RN) 0159 (Given - Provider: Alejandra Roberts RN) oxyCODONE immediate release tablet(Linked Group 1) 2.5 mg, Oral, EVERY 4 HOURS PRN, Starting on 04/10/23 at 1010, Until Discontinued, Moderate Pain (pain score 4,5,6) 2050 (See Alternative - Provider: Alejandra Roberts RN) 0850 (See Alternative - Provider: Krystal Dominguez, ANTONINO) oxyCODONE immediate release tablet(Linked Group 1) 5 mg, Oral, EVERY 4 HOURS PRN, Starting on 04/10/23 at 1010, Until Discontinued, Severe Pain (pain score 7,8,9,10) 2050 (Given - Provider: Alejandra Roberts RN) 0850 (Given - Provider: Krystal Dominguez, ANTONINO) Linked Groups Order Group 1: oxyCODONE immediate release tabletJump to med 2.5 mg, Oral, EVERY 4 HOURS PRN, Starting on 04/10/23 at 1010, Until Discontinued, Moderate Pain (pain score 4,5,6) Or oxyCODONE immediate release tabletJump to med 5 mg, Oral, EVERY 4 HOURS PRN, Starting on Wed04/10/23 at 1010, Until Discontinued, Severe Pain (pain score 7,8,9,10) Scheduled Medication Order 04/12/2023 04/13/2023 04/14/2023 ceFAZolin (ANCEF) 2,000 mg in dextrose 50 mL ivpb (COMPLETED) 2,000 mg, Intravenous, ONCE, 1 dose, On Wed04/14/23 at 1300 1320 (Given - Provid er: Keyshawn Lopez MD) povidone-iodine 10 % swab (COMPLETED) 4 Swab, Nasal, Once, 1 dose, On Wed04/14/23 at 1300, Pre-op 1235 (Given - Provid er: Brie Dixon RN) Continuous Medication Order 04/12/2023 04/13/2023 04/14/2023 lactated ringers iv infusion Intravenous, at 75 mL/hr, CONTINUOUS, Starting on Wed04/14/23 at 1300, Until Discontinued 1300 (Due) lactated ringers iv infusion Intravenous, at 125 mL/hr, CONTINUOUS, Starting on Wed04/14/23 at 1600, Until Discontinued 1600 (Due) PRN Medication Order 04/12/2023 04/13/2023 04/14/2023 acetaminophen (TYLENOL) tablet 650 mg, Oral, PACU ONCE PRN, Starting on Wed04/14/23 at 1505, Until Wed04/14/23 at 2104, Mild Pain (pain score 1,2,3), PACU Now albuterol (PROVENTIL) (2.5 MG/3ML) 0.083% nebulizer solution 2.5 mg, Nebulization, PACU ONCE PRN, Starting on Wed04/14/23 at 1505, Until Wed04/14/23 at 2104, Wheezing, PACU Now bupivacaine (MARCAINE) 5 mL, lidocaine (XYLOCAINE) 1 % 5 mL, dose administered = 10 mL given 10 mL sc injection (CANCELED) PRN, Starting on Wed04/14/23 at 1510, Until Wed04/14/23 at 1525 1510 (Given - Provid er: Boy Weir MD) fentaNYL (SUBLIMAZE) 100 MCG/2ML injection 50 mcg, Intravenous Push, PACU ONCE PRN, Starting on Wed04/14/23 at 1505, Until Wed04/14/23 at 2104, Severe Pain (pain score 7,8,9,10), PACU Now naloxone (NARCAN) 0.4 MG/ML injection 0.4 mg, Intravenous Push, PRN, Starting on Wed04/14/23 at 1505, Until Discontinued, Respiratory Rate Less Than 8 for adults and less than 12 for Peds or for suspected overdose, PACU Now naloxone (NARCAN) 0.4 MG/ML injection 0.4 mg, Intravenous Push, PRN, Starting on Wed04/14/23 at 1505, Until Discontinued, Respiratory Rate Less Than 8 for adults and less than 12 for Peds or for suspected overdose oxyCODONE-acetaminophen (PERCOCET) 5-325 mg per tablet (COMPLETED) 1 Tablet, Oral, PRN, 1 dose, Starting on Wed04/14/23 at 1505, Until Discontinued, Moderate Pain (pain score 4,5,6), PACU Now 1636 (Given - Provid er: Dior Lazaro RN) FOR RECORDS PERTAINING TO PATIENTS WHO ARE OR HAVE BEEN ENROLLED IN A CHEMICAL DEPENDENCY/SUBSTANCEABUSE PROGRAM, SOME INFORMATION MAY BE OMITTED. This clinical summary was aggregated from multiple sources. Caution should be exercised in using it in the provision of clinical care. This summary normalizes information from multiple sources, and as a consequence, information in this document may materially change the coding, format and clinical context of patient data. In addition, data may be omitted in some cases. CLINICAL DECISIONS SHOULD BE BASED ON THE PRIMARY CLINICAL RECORDS. [facility]. provides no warranty or guarantee of the accuracy or completeness of information in this document.
== END 2023-05-10 09:46 | disposition home or self-care (01) ==
LOC: RAD 09:45
PROVIDERS: PCP Family Medicine; Visit Provider Nurse Practitioner Family
DX: M25.551 Pain in right hip (principal); M25.552 Pain in left hip; M25.571 Pain in right ankle and joints of right foot
CPT/HCPCS: 73522; 73610

== ENCOUNTER 2023-05-26 08:50 | Outpatient (RCR) | payer OTHER, SELFPAY | END 2023-07-31 15:55 | disposition home or self-care (01) | LOC: PT 08:50 | PROVIDERS: PCP Family Medicine; Visit Provider Nurse Practitioner Family | DX: S33.5XXD Sprain of ligaments of lumbar spine, subsequent encounter (principal); S73.101D Unspecified sprain of right hip, subsequent encounter; S73.102D Unspecified sprain of left hip, subsequent encounter; W11.XXXD Fall on and from ladder, subsequent encounter | CPT/HCPCS: 97014; 97110; 97112; 97140; 97162; 97530 ==

== ENCOUNTER 2023-07-07 20:33 | Emergency (ER) | payer OTHER, BC, SELFPAY ==
[2023-07-07 20:45] VITALS: BP 161/87; O2SAT 95
[2023-07-07 20:47] VITALS: BP 161/87; PULSE 109; TEMP 37.1; O2SAT 93; BMI 28.7
[2023-07-07 20:50] VITALS: O2SAT 94
--- NOTE | 2023-07-07 21:09 | CT_ITS ---
The [address] [address] Patient Name: EDUARDA WILLIAMSON MRN: [id number] date: 1990 Sex: M Assigned Patient Location: ER Current Patient Location: ER Accession/Order Number: [id number] Exam Date: 07/07/2023 21:40 Report Date: 07/07/2023 22:40 At the request of: YENNI ABEBE Procedure: CT angio chest EXAM: CT angio chest HISTORY: R/O PE COMPARISON: None. TECHNIQUE: CT angiography of the pulmonary arteries following the administration of intravenous contrast. Coronal and sagittal MIP (maximum intensity projection) images were performed. 3-D image processing performed on a separate subluxation. Dose reduction techniques were achieved by using automated exposure control and/or adjustment of mA and/or kV according to patient size and/or use of iterative reconstruction technique. FINDINGS: The study is technically adequate for the diagnosis of pulmonary embolism, with good contrast bolus to the pulmonary arteries. TUBES AND IMPLANTS: None. CHEST WALL AND LOWER NECK: Unremarkable. BONES: No suspicious lesions. UPPER ABDOMEN: Unremarkable. MEDIASTINUM AND SANTY: Residual thymic tissue is noted AORTA: No aneurysm or dissection PULMONARY ARTERIES: No embolism HEART: Mild to moderate cardiomegaly CORONARY ARTERIES: No coronary artery calcifications. LUNG AND AIRWAYS: Unremarkable. PLEURA: Unremarkable. CT/CT angio chest IMPRESSION: 1. No evidence for pulmonary embolism or other acute intrathoracic process. 2. Mild to moderate cardiomegaly. Electronically authenticated by: DAVID CUELLAR Date: 07/07/2023 22:40
--- NOTE | 2023-07-07 21:12 | ED_ITS ---
HPI HPI - Back Pain/Injury General Chief Complaint: Back Pain/Injury Stated Complaint: [facility] Back Pain Time Seen by Provider: 07/07/23 20:47 Source: patient Mode of arrival: walk-in Limitations: no limitations History of Present Illness HPI Narrative: This 32-year-old male presents for evaluation of right mid posterior back pain. The patient states that in April he fell approximately 30 feet. He works for [employer]. He sustained a pulmonary contusion on the left, a left forearm fracture and low back injury. He has been participating in physical therapy and has been seen at [employer] at this hospital. He is back at work and doing light duty. He states that earlier today he started experiencing pain in his right posterior back area which is sharp and stabbing in nature and making it difficult for him to take a deep breath. He does smoke cigarettes. He denies any chest pain dizziness or syncope. He has no lower extremity pain or swelling. He denies that he has been doing anything strenuous recently. He denies any recent falls or injuries. He has no weakness numbness or tingling. He has no abdominal pain nausea vomiting or diarrhea. Related Data Home Medications ?Medication ?Instructions ?Recorded ?Confirmed hydrocodone 5 mg-acetaminophen 325 1 tab PO Q12H PRN pain 07/07/23 07/07/23 mg tablet Allergies Allergy/AdvReac Type Severity Reaction Status Date / Time No Known Drug Allergies Allergy Verified 03/01/23 18:37 Opioid HPI Opioid Management Most Recent Opioid Data: No Data to Display Review of Systems ROS Status of ROS 10 or more systems reviewed and unremark able except as noted in history and below PFSH PFS Social History Smoking status: Never smoker Exam Narrative Exam Narrative: Nurses note and vital signs reviewed; Patient is afebrile, he is tachycardic with a pulse of 109, blood pressure is elevated at 161/87, he is mildly hypoxic with pulse ox of 93 percent on room air General: The patient appears well and in no apparent distress. Patient is resting comfortably on cart. Skin: Warm, dry, no pallor noted. There is no rash noted. Head: Normocephalic, atraumatic Eye: Normal conjunctiva, no drainage, EOMI. PERRL Ears, Nose, Mouth, and Throat: oral mucosa is moist. Nares patent. Cardiovascular: Regular Rate and Rhythm S1S2, tachycardic at triage with pulse of 109 Respiratory: Patient is in no distress, Lungs are clear with good air entry, there is no wheezing rhonchi or rales appreciated, Back: No midline bony vertebral tenderness. There is tenderness in the right lateral thoracic region, no skin rash noted, no crepitus noted GI: Normal bowel sounds, no tenderness to palpation, no masses appreciated. No rebound, guarding, or rigidity noted. Musculoskeletal: The patient has no evidence of calf tenderness, no pitting edema, symmetrical pulses noted bilaterally Neurological: A&O x4, normal speech Psychiatric: Cooperative Constitutional Vital Signs, click to edit/add: Last Vital Signs Temp 98.8 F 07/07/23 20:47 Pulse 109 H 07/07/23 20:47 Resp 18 07/07/23 20:47 BP 161/87 H 07/07/23 20:47 Pulse Ox 93 L 07/07/23 20:47 O2 Del Method Room Air 07/07/23 20:47 Course Vital Signs Vital signs: Vital Signs Temperature 98.8 F 07/07/23 20:47 Pulse Rate 109 H 07/07/23 20:47 Respiratory Rate 18 07/07/23 20:47 Blood Pressure 161/87 H 07/07/23 20:47 Pulse Oximetry 93 L 07/07/23 20:47 Oxygen Delivery Method Room Air 07/07/23 20:47 Temperature 98.8 F 07/07/23 20:47 Pulse Rate 109 H 07/07/23 20:47 Respiratory Rate 18 07/07/23 20:47 Blood Pressure 161/87 H 07/07/23 20:47 Pulse Oximetry 93 L 07/07/23 20:47 Oxygen Delivery Method Room Air 07/07/23 20:47 MDM - Back Pain/Injury MDM Narrative Medical decision making narrative: This 32-year-old male who had a traumatic fall in April requiring [facility] transfer to [facility] in [facility] and sustained a left forearm fr acture, pulmonary contusion and back injury presents for evaluation of right- sided pain with pain with taking deep breath. He is a smoker. He has no lower 70 pain or swelling. He is mildly tender in the right posterior thoracic region. There is no skin rash. He has not had a fever or any upper respiratory symptoms. He was noted to be tachycardic, mildly hypoxic with pulse ox of 93 on room air and pulse of 109 on arrival. He had taken his last [place] prior to coming to the emergency department but it was helping him only minimally. Due to his recent injury is felt that he was high risk for having a pulmonary embolism, especially since he is no longer extremely active at work and is on light duty. An IV was placed and he was medicated with 4 mg of morphine, 4 mg of Zofran, 60 mg of IM Norflex and a liter of normal saline. He has remained hemodynamically stable in emergency department. Routine labs are reviewed. He does have an elevated white count at 14. The remainder of his labs are normal. CT angios of the chest is negative for pulmonary embolism, aortic dissection, any bony deformity but does show moderate cardiomegaly. 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 He was given a copy to share with his family physician. His symptoms appear to be pleuritic in nature at this time and he was medicated with 30 mg of IV Toradol. He'll be given 2 [place] to take home and a short course of norco, naprosyn and norflex to use as needed for ongoing pain. Medical Records Medical records narrative: [place] [address] CT Scan Report Signed Patient: EDUARDA WILLIAMSON MR#: [id number] : 1990 Acct:[id number] Age/Sex: 32 / M ADM Date: Loc: ER Attending Dr: Ordering Physician: Charlene Villeda Date of Service: 07/07/23 Procedure(s): CT angio chest Accession Number(s): [id number] cc: Tito Whitney M.D.~ The [place] [address] Patient Name: EDUARDA WILLIAMSON MRN: [id number] date: 1990 Sex: M Assigned Patient Location: ER Current Patient Location: ER Accession/Order Number: [id number] Exam Date: 07/07/2023 21:40 Report Date: 07/07/2023 22:40 At the request of: CHARLENE VILLEDA Procedure: CT angio chest EXAM: CT angio chest HISTORY: R/O PE COMPARISON: None. TECHNIQUE: CT angiography of the pulmonary arteries following the administration of intravenous contrast. Coronal and sagittal MIP (maximum intensity projection) images were performed. 3-D image processing performed on a separate subluxation. Dose reduction techniques were achieved by using automated exposure control and/or adjustment of mA and/or kV according to patient size and/or use of iterative reconstruction technique. FINDINGS: The study is technically adequate for the diagnosis of pulmonary embolism, with good contrast bolus to the pulmonary arteries. TUBES AND IMPLANTS: None. CHEST WALL AND LOWER NECK: Unremarkable. BONES: No suspicious lesions. UPPER ABDOMEN: Unremarkable. MEDIASTINUM AND SANTY: Residual thymic tissue is noted AORTA: No aneurysm or dissection PULMONARY ARTERIES: No embolism HEART: Mild to moderate cardiomegaly CORONARY ARTERIES: No coronary artery calcifications. LUNG AND AIRWAYS: Unremarkable. PLEURA: Unremarkable. CT/CT angio chest IMPRESSION: 1. No evidence for pulmonary embolism or other acute intrathoracic process. 2. Mild to moderate cardiomegaly. Electronically authenticated by: DAVID CUELLAR Date: 07/07/2023 22:40 Lab Data Labs: Lab Results 07/07/23 Range/Units 21:15 WBC 14.1 H (4.0-11.0) 10^3/uL RBC 5.05 (4.70-6.10) 10^6/uL Hgb 14.8 (14.0-18.0) g/dL Hct 43.6 (42.0-54.0) % MCV 86.3 (80.0-94.0) fL MCH 29.3 (25.9-34.0) pg MCHC 33.9 (29.9-35.2) g/dL RDW 12.7 (11.0-15.0) % Plt Count 262 (150-450) 10^3/uL MPV 8.8 L (9.5-13.5) fL Neut % (Auto) 59.7 (43.0-75.0) % Lymph % (Auto) 30.8 (20.5-60.0) % [place] % (Auto) 7.2 (1.7-12.0) % Eos % (Auto) 1.1 (0.9-7.0) % Baso % (Auto) 0.8 (0.2-2.0) % Neut # (Auto) 8.4 H (1.4-6.5) 10^3/uL Lymph # (Auto) 4.4 H (1.2-3.8) 10^3/uL [place] # (Auto) 1.0 H (0.3-0.8) 10^3/uL Eos # (Auto) 0.2 (0.0-0.7) 10^3/uL Baso # (Auto) 0.1 (0.0-0.1) 10^3/uL Abs Immat Gran (auto) 0.05 H (0.00-0.03) 10^3/uL Imm/Tot Granulo (auto) 0.4 (0.0-0.5) % Sodium 136 (136-145) mmol/L Potassium 3.9 (3.5-5.1) mmol/L Chloride 102 (98-107) mmol/L Carbon Dioxide 22.7 (21.0-32.0) mmol/L Anion Gap 15.2 BUN 17.0 (7.0-18.0) mg/dL Creatinine 1.03 (0.70-1.30) mg/dL Est GFR ( Amer) >60 (>=60) Est GFR (Non-Af Amer) >60 (>=60) BUN/Creatinine Ratio 16.5 Glucose 152 H (74-106) mg/dL Calcium 9.6 (8.5-10.1) mg/dL Total Bilirubin 0.3 (0.2-1.0) mg/dL AST 11 L (15-37) U/L ALT 47 (16-63) U/L Alkaline Phosphatase 113 (46-116) U/L Total Protein 7.4 (6.4-8.2) g/dL Albumin 3.9 (3.4-5.0) g/dL Globulin 3.5 g/dL Albumin/Globulin Ratio 1.1 Discharge Plan Discharge Stand Alone Forms: Portal Instructions Chief Complaint: Back Pain/Injury Clinical Impression: Pleuritic pain, Thoracic back pain Patient Disposition: Home, Self-Care Time of Disposition Decision: 22:52 Condition: Good Prescriptions / Home Meds: No Action hydrocodone-acetaminophen 5-325 mg tablet 1 tab PO Q12H PRN (Reason: pain) Print Language: [place] Leonean Instructions: Pleurisy (ED), Thoracic Pain (ED) Referrals: Tito Whitney MD [Primary Care Provider] - 1 week
[2023-07-07 21:25] LABS: Basophils Absolute Auto 0.1 10^3/uL (0.0-0.1); Basophils Percent Auto 0.8 % (0.2-2.0); Eosinophils Absolute Auto 0.2 10^3/uL (0.0-0.7); Eosinophils Percent Auto 1.1 % (0.9-7.0); Hematocrit 43.6 % (42.0-54.0); Hemoglobin 14.8 g/dL (14.0-18.0); Immature Granulocytes Abs Auto 0.05 10^3/uL (0.00-0.03); Immature Granulocytes Pct Auto 0.4 % (0.0-0.5); Lymphocytes Absolute Auto 4.4 10^3/uL (1.2-3.8); Lymphocytes Percent Auto 30.8 % (20.5-60.0); Mean Corpuscular HGB Conc 33.9 g/dL (29.9-35.2); Mean Corpuscular Hemoglobin 29.3 pg (25.9-34.0); Mean Corpuscular Volume 86.3 fL (80.0-94.0); Mean Platelet Volume 8.8 fL (9.5-13.5); Monocytes Percent Auto 7.2 % (1.7-12.0); Neutrophils Absolute Auto 8.4 10^3/uL (1.4-6.5); Neutrophils Percent Auto 59.7 % (43.0-75.0); Platelet Count 262 10^3/uL (150-450); Red Blood Count 5.05 10^6/uL (4.70-6.10); Red Cell Distribution Width 12.7 % (11.0-15.0); White Blood Count 14.1 10^3/uL (4.0-11.0)
[2023-07-07] MEDS: MORPHINE SULFATE 4 MG/ML VIAL IV (21:26)
[2023-07-07] MEDS: 0.9 % SODIUM CHLORIDE 1,000 ML 1000 ML IV (21:26)
[2023-07-07] MEDS: ORPHENADRINE 60 MG/ 2 ML VIAL IM (21:26)
[2023-07-07] MEDS: ONDANSETRON PF 4 MG/2 ML VIAL IV (21:27)
[2023-07-07 21:39] LABS: Alanine Aminotransferase 47 U/L (16-63); Albumin Globulin Ratio 1.1; Albumin Level 3.9 g/dL (3.4-5.0); Alkaline Phosphatase 113 U/L (46-116); Anion Gap 15.2; Aspartate Amino Transferase 11 U/L (15-37); BUN Creatinine Ratio 16.5; Bilirubin Total 0.3 mg/dL (0.2-1.0); Calcium 9.6 mg/dL (8.5-10.1); Carbon Dioxide 22.7 mmol/L (21.0-32.0); Chloride 102 mmol/L (98-107); Estimated GFR (African America >60 (>=60); Estimated GFR (Non-African Ame >60 (>=60); Globulin 3.5 g/dL; Glucose 152 mg/dL (74-106); Potassium 3.9 mmol/L (3.5-5.1); Sodium 136 mmol/L (136-145); Total Protein 7.4 g/dL (6.4-8.2)
[2023-07-07 22:58] VITALS: BP 140/78; O2SAT 96
[2023-07-07 23:00] VITALS: PULSE 87; O2SAT 97
--- OUTSIDE RECORDS SUMMARY | 2023-07-07 23:03 | XMS_ITS | CCD ---
Author Organization [facility] Care Team Providers Care Objects Conservator Name Role Phone BOBY SOMMERS Attending Unavailable DO Leonides Walker Emergency Provider MD Tito Whitney Primary Care Provider [phone] Unavailable Primary Care Provider Unavailalonso e Leonides Walker Attending Unavailable Leonides Walker Admitting Unavailable Tito Whitney Primary Care Unavailable Carmela Guevara MD Unavailable Duncanone OTR/L, Laura Unavailable [phone] PROVIDER, UNKNOWN Admitting Unavailable CARMELA GUEVARA Referring Unavailable PROVIDER, UNKNOWN Attending Unavailable CARMELA GUEVARA Admitting Unavailable PROVIDER, UNKNOWN Attending Unavailable CARMELA GUEVARA Admitting Unavailable PROVIDER, UNKNOWN Attending Unavailable PROVIDER, UNKNOWN Admitting Unavailable JILLIAN READ Referring Unavailable PROVIDER, UNKNOWN Attending Unavailable PROVIDER, UNKNOWN Admitting Unavailable PROVIDER, UNKNOWN Attending Unavailable MARLEY PETERSON Referring Unavailable PROVIDER, UNKNOWN Admitting Unavailable CARMELA GUEVARA Attending Unavailable PROVIDER, UNKNOWN Admitting Unavailable CARMELA GUEVARA Referring Unavailable LAURA VICTORIA Attending Unavailable PROVIDER, UNKNOWN Admitting Unavailable PROVIDER, UNKNOWN Attending Unavailable CARMELA GUEVARA Attending Unavailable PROVIDER, UNKNOWN Admitting Unavailable JARROD CHANDLER Attending Unavailable MARLEY PETERSON Referring Unavailable PROVIDER, UNKNOWN Admitting Unavailable PROVIDER, UNKNOWN Admitting Unavailable PROVIDER, UNKNOWN Attending Unavailable YING HOLT Admitting Unavailable PROVIDER, UNKNOWN Attending Unavailable MARLEY PETERSON Referring Unavailable CARMELA GUEVARA Admitting Unavailable CARMELA GUEVARA Referring Unavailable CARMELA GUEVARA Attending Unavailable Medications Current Medications Medication Drug Class(es) [...] RCAN) 0.4 MG/ML injection polyethylene glycol 3350 [id number] mg powder for oral solution (1 source) Osmotic Laxative Start: 04-09-2023 polyethylene glycol (MIRALAX) 17 g packet sennosides, skilled nursing 8.6 mg oral tablet (5 sources) Start: 04-09-2023 End: 05-11-2023 take 1 tablet by mouth once daily senna (SENOKOT) 8.6 MG tablet Take 1 Tablet by mouth daily. To prevent/treat constipation while taking opioids. Hold if having bowel movements. 30 Tablet 0 04/11/2023 Active Completed/Discontinued Medications Medication Drug Class(es) Dates [...] 04-10-2023 Episodic Crushing injury or internal injury (17 sources) Injury of superior mesenteric artery; Translations: [Unspecified injury of superior mesenteric artery, initial encounter] Onset: 04-08-2023 04-08-2023 Episodic E Codes: Fall (8 sources) Fall; Translations: [Unspecified fall, initial encounter] Onset: 04-10-2023 04-08-2023 Episodic Fracture of upper limb (14 sources) Fracture of left radius; Translations: [Unspecified fracture of left forearm, initial encounter for closed fracture] Onset: 04-08-2023 04-08-2023 Episodic Other aftercare (1 source) Surgical follow-up; Translations: [Encounter for other specified surgical aftercare] 06-14-2023 Episodic Other aftercare (1 source) Encounter for other specified surgical aftercare; Translations: [Encounter for other specified surgical aftercare] Onset: 06-14-2023 Episodic Other nervous system disorders (1 source) [...] Value Interpretation Reference Range Facility Progress Noteson 06-14-2023 Rubber Roller Grinder Operator Authentication Interface Message Text Hand Clinic Post-operative Notes Surgery(s) performed: Left radial shaft fracture DOS:04/14/2023 Post Op 2 months Subjective: N/t resolved intermittent wrist pain/ feels plate Objective: LEft forearm Wound: volar wound healed Edema: mostly Motion: full flexion/extension wrist Improved forearm rotation 80% contralateral Sensory: index and middle intact to LT; decreased to thumb Radiograph findings: L forearm XR: interval healing across fracture without loosening/failure of implants Assessment:(Z48.89) Aftercare following surgery (primary encounter diagnosis) Plan: Wean out of splint Progress strengthening Reviewed Xray MEdco-14 light duty left arm extend until August 13, 2023 X-rays on follow up: yes, L forearm Follow up: 6 weeks Carmela Guevara MD Hand and Upper Extremity Surgeon 06/14/23 Normal [facility] XR FOREARM LEFT 2 VIEWSon XR FOREARM LEFT 2 VIEWS EXAMINATION: XR FOREARM LEFT 2 VIEWSPRO/LT 06/14/2023 01:52 PM CLINICAL HISTORY: follow up fracture ASSOCIATED DIAGNOSIS: Aftercare following surgery Closed displaced comminuted fracture of shaft of left radius, initial encounter ORDERING PROVIDER: CARMELA GUEVARA TECHNBEE NOTE: COMPARISON: XR FOREARM LEFT 2 VIEWS 04/27/2023, 2:16 PM and XR FOREARM LEFT 2 VIEWS 04/10/2023, 12:10 AM FINDINGS: Bone: Internal internal fixation of a healing, comminuted fracture of the radial mid diaphysis by a reconstruction plate and screw device with satisfactory alignment of the fracture fragments and mild osseous bridging and persistent radiolucent fracture lines at the fracture site. Hardware failure loosening or destructive bone lesion. Joint: No dislocation. Soft tissues: Unremarkable. IMPRESSION: Internal fixation of healing, comminuted fracture of the left radial mid diaphysis. No hardware failure or loosening. Left forearm MACRO: None Normal [facility] XR Radius and Ulna - left Vi ewson 06-14-2023 EXAMINATION: XR FORE ARM LEFT 2 VIEWSPRO/LT 06/14/2023 01:52 PM CLINICAL HISTORY: follow up fracture ASSOCIATED DIAGNOSIS: Aftercare following surgery Closed displaced comminuted fracture of shaft of left radius, initial encounter ORDERING PROVIDER: CARMELA GUEVARA TECHNBEE NOTE: COMPARISON: XR FOREARM LEFT 2 VIEWS 04/27/2023, 2:16 PM and XR FOREARM LEFT 2 VIEWS 04/10/2023, 12:10 AM FINDINGS: Bone: Internal internal fixation of a healing, comminuted fracture of the radial mid diaphysis by a reconstruction plate and screw device with satisfactory alignment of the fracture fragments and mild osseous bridging and persistent radiolucent fracture lines at the fracture site. Hardware failure loosening or destructive bone lesion. Joint: No dislocation. Soft tissues: Unremarkable. IMPRESSION: Internal fixation of healing, comminuted fracture of the left radial mid diaphysis. No hardware failure or loosening. Left forearm MACRO: None RADIOLOGY Eduarda Nichole, DO - 06/14/2023 EXAMINATION: XR FOREARM LEFT 2 VIEWSPRO/LT 06/14/2023 01:52 PM CLINICAL HISTORY: follow up fracture ASSOCIATED DIAGNOSIS: Aftercare following surgery Closed displaced comminuted fracture of shaft of left radius, initial encounter ORDERING PROVIDER: CARMELA GUEVARA TECHNOLOGISTS NOTE: COMPARISON: XR FOREARM LEFT 2 VIEWS 04/27/2023, 2:16 PM and XR FOREARM LEFT 2 VIEWS 04/10/2023, 12:10 AM FINDINGS: Bone: Internal internal fixation of a healing, comminuted fracture of the radial mid diaphysis by a reconstruction plate and screw device with satisfactory alignment of the fracture fragments and mild osseous bridging and persistent radiolucent fracture lines at the fracture site. Hardware failure loosening or destructive bone lesion. Joint: No dislocation. Soft tissues: Unremarkable. IMPRESSION: Internal fixation of healing, comminuted fracture of the left radial mid diaphysis. No hardware failure or loosening. Left forearm MACRO: None [facility] Study observation (narrative) [facility] XR Radius and Ulna - left Vi ewsOrdered By: Eduarda Nichole on 06-14-2023 [facility] Work Phone: Progress Noteson 04-29-2023 Rubber Roller Grinder Operator Authentication Interface Message Text Patient was identified by name and date of . Kristi Mercedes RN, RN Patient at risk for falls:No Falls Risk protocol implemented: No Normal [facility] Rubber Roller Grinder Operator Authentication Interface Message Text I am seeing Mr Williamson today for routine trauma follow up. He was admitted on 04/08 after a fall from a ladder. Injuries included left radius fracture, small right apical pneumothorax and mesenteric hematoma. He arrived as a transfer from [facility]. His injuries were treated non-operatively. He was [...] when cleared by occupational medicine Labs from [place] reviewed, very mild anemia,. Improved from last lab work here No further follow up with trauma is needed Tyshawn Ibarra MD Normal [facility] Progress Noteson 04-28-2023 Rubber Roller Grinder Operator Authentication Interface Message Text Hand Clinic Post-operative [...] Plan: XR FOREARM LEFT 2 VIEWS, OCCUP [id number]/TREAT SERVICE RQST, EXTERNAL - start ROM and volar resting splint SERVICE REQUEST FOR CARE OUTSIDE THE Bou[facility] SYSTEM MEdco-14 light duty x 12 weeks post op X-rays on follow up: yes, L forearm Follow up: 6 weeks Carmela Guevara MD Hand and Upper Extremity Surgeon 04/28/23 Normal [facility] Progress Noteson 04-27-2023 Rubber Roller Grinder Operator Authentication Interface Message Text Patient was identified by name and date of .Removed left short arm splint without incident patient sent to x-ray. Normal [facility] XR FOREARM LEFT 2 VIEWSon XR FOREARM LEFT 2 VIEWS EXAMINATION: XR FOREARM LEFT 2 VIEWSPRO/LT 04/27/2023 02:16 PM CLINICAL HISTORY: fx ASSOCIATED DIAGNOSIS: Aftercare following surgery ORDERING PROVIDER: JILLIAN READ TECHNOLOGISTS NOTE: COMPARISON: XR FOREARM LEFT 2 VIEWS 04/10/2023, 12:10 AM FINDINGS: There is orthopedic hardware -- screw plate device and screws -- providing internal fixation for previously noted mid radial shaft fracture. No bony bridging The overall alignment appears essentially anatomic given technical differences. IMPRESSION: [Status post ORIF with alignment grossly maintained and hardware intact.] Left forearm MACRO: None Normal [facility] Anesthesia Acute Painon - Rubber Roller Grinder Operator Authentication Interface Message Text Teaching Physician Note: [...] ultrasound guidance Acute pain Keyshawn Lopez MD Pc Maintenance Technician, PGY-4 Normal [facility] Anesthesia Postprocedure Rajni monsivais 04-14-2023 Rubber Roller Grinder Operator Authentication Interface Message Text Anesthesia Postoperative Assessment: [...] EVENTS: No notable events documented. Normal [facility] Anesthesia Transfer Of Careo n 04-14-2023 Rubber Roller Grinder Operator Authentication Interface Message Text Patient taken to [...] Carmela Guevara MD Anesthesiologist: Laura Solano MD TRANSPORT OPERATIONS INSPECTOR: Coreen Morris APRN-MODESTA Taker Off Drying Kiln: Keyshawn Lopez MD REDUCTION, OPEN, RADIUS (Left: [...] Removed 04/14/23 1521 Secured via: Taped 04/14/23 1317 Site Assessment WNL 04/14/23 1317 All non-working IVs have been removed: N/A [...] Bili T Bili Alk Phos ALT AST 04/08/23 1712 6.6 4.3 0.08 0.4 68 70 49 [...] was received. Keyshawn Lopez MD Normal [facility] Blood Attestationon 04-14-19 Rubber Roller Grinder Operator Authentication Interface Message Text Blood Attestation: ATTESTATION OF INFORMED CONSENT FOR BLOOD: The transfusion of blood and/or blood components were discussed with the patient and/or legal patient registration representative. The risks, benefits and alternatives were reviewed. Questions regarding blood transfusions were answered. The patient /or the patient's legal patient registration representative agree with the plan for transfusion of blood and/or blood components. Normal [facility] Brief Operative Noteon 04-14 Rubber Roller Grinder Operator Authentication Interface Message Text Brief Operative Note BV OR 3 Eduarda Williamson 32 year old male Surgical Contact Serial Number: [id number] Preoperative Diagnosis: Pre-op Diagnosis * Closed displaced comminuted fracture of shaft of left radius, initial encounter [S52.352A] Postoperative Diagnosis: * Closed displaced comminuted fracture of shaft of left radius, initial encounter [S52.352A] Procedures: LEFT radial shaft open reduction internal fixation Surgeon(s): Surgeon(s): Carmela Guevara MD Staff: Scrub: Nathaly Gonzalez RN Wood Drilling Machine Operator Nurse: Lesvia Knight RN; Sandy Yuen RN; Bang Rao RN Physician Animal Humane Agent Supervisor: Jillian Read PA-C Pharmacist In Charge Owner: Boy Weir MD Anesthesia: LMA; local Anesthesiologist: Laura Solano MD TRANSPORT OPERATIONS INSPECTOR: Coreen Morris APRN-CRNA Taker Off Drying Kiln: Keyshawn Lopez MD Specimen(s): * No specimens [...] Read PA-C 04/14/2023 3:32 PM Normal [facility] OP Noteon 04-14-2023 Rubber Roller Grinder Operator Authentication Interface Message Text Eduarda Williamson [id number] 04/14/2023 Date of Surgery: 04/14/2023 PREOPERATIVE DIAGNOSIS: leftforearm radial shaft fracture POSTOPERATIVE DIAGNOSIS: Same. PROCEDURE:LEFT FOREARM open treatment radial shaft fracture with internal fixation Use and interpretation of operating fluoroscopy: Yes ATTENDING SURGEON: Carmela Guevara M.D. STAFF: Scrub: Nathaly Gonzalez RN Wood Drilling Machine Operator Nurse: Lesvia Knight RN; Sandy Yuen RN; Bang Rao RN Physician Animal Humane Agent Supervisor: Jillian Read PA-C Pharmacist In Charge Owner: Boy Weir MD ANESTHESIA: Consult IV FLUIDS AND URINE: See anesthesia. ESTIMATED BLOOD LOSS: 1 mL. DRAINS: None. SPECIMENS: None. COMPLICATIONS: None. IMPLANTS: Implant Name Type Inv. Item Serial No. Ged Preparation Teacher Lot No. LRB No. Used Action PLATE 9 HOLE FOREARM [id number] - [id number] PLATE 9 HOLE FOREARM [id number] Nanette Left 1 Implanted 3.5 X 16 SCREW 1 [id number] - [id number] Screw 3.5 X 16 SCREW 1 [id number] MC2 Left 6 Implanted INDICATIONS: Patient suffered a [...] the case. Carmela Guevara MD Normal [facility] US GUIDANCE NEEDLE PLACEMENT on 04-14-2023 [...] of the procedure and ultrasound. Normal [facility] US Guidance for placement of needle in Unspecified body regionon 04-14-2023 : Technical services were performed by the department of Anesthesia. Please see the Procedure note for interpretation. Please refer to the patient's chart for the results of the procedure and ultrasound. [facility] Narrative & Impressi on EXAMINATION: US GUIDANCE NEEDLE PLACEMENT CLINICAL HISTORY: peripheral nerve block Left brachial plexus nerve block, [facility]illary [facility] Study observation (narrative) [facility] US Guidance for placement of needle in Unspecified body regionOrdered By: Keyshawn Lopez on 04-14-2023 [facility] Work Phone: Anesthesia Preprocedure Eval uationon 04-13-2023 Rubber Roller Grinder Operator Authentication Interface Message Text ASA: 2 No [...] in by EMS as a transfer from [facility] following 30 ft fall from ladder. 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 Trauma workup [...] were discussed with the patient and/or legal patient registration representative. The risks, benefits and alternatives were reviewed. Questions regarding anesthesia were answered. Patient and/or legal patient registration representative knows such anesthetics and procedures may be performed by Resident physicians, Certified Anesthesiologist Assistants, or Certified Nurse Anesthetists under the supervision of a physician. The patient /or the patient's legal patient registration representative agree with the plan for anesthesia. Normal [facility] CBC panel Auto (Bld)on 04-11 Erythrocyte distribution width (RBC) [Ratio] 14.0 % 11.5 - 14.5 % [facility] Hematocrit (Bld) [Volume fraction] 33.8 % Low 41.0 - 53.0 % [facility] Hemoglobin (Bld) [Mass/Vol] 11.3 g/dL Low 13.9 - 16.3 g/dL [facility] Interpretation and review of laboratory results Abnormal [facility] MCH (RBC) [Entitic mass] 29.0 pg 26.0 - 34.0 pg [facility] MCHC (RBC) [Mass/Vol] 33.5 g/dL 32.0 - 35.9 g/dL [facility] MCV (RBC) [Entitic vol] 87 fL 80 - 100 fL [facility] Platelet mean volume (Bld) [Entitic vol] 7.2 fL Low 7.5 - 11.2 fL [facility] Platelets (Bld) [#/Vol] 201 10*3/uL 150 - 400 K/uL [facility] RBC (Bld) [#/Vol] 3.90 10*6/uL Low [facility] WBC (Bld) [#/Vol] 8.9 10*3/uL 4.5 - 11.5 K/uL [facility] COMPLETE BLOOD COUNTon 04-11 Erythrocyte distribution width (RBC) [Ratio] 14.0 % Normal 11.5-14.5 [facility] Comment on above: Performed By: #### C H8 #### [facility] [address] [place] [address], Hematocrit (Bld) [Volume fraction] 33.8 % Low 41.0-53.0 [facility] Comment on above: Performed By: #### C H8 #### [facility] [address] [place] [address], Hemoglobin (Bld) [Mass/Vol] 11.3 g/dL Low 13.9-16.3 [facility] Comment on above: Performed By: #### C H8 #### [facility] [address] [place] [address], MCH (RBC) [Entitic mass] 29.0 pg Normal 26.0-34.0 [facility] Comment on above: Performed By: #### C H8 #### [facility] [address] [place] [address], MCHC (RBC) [Mass/Vol] 33.5 g/dL Normal 32.0-35.9 [facility] Comment on above: Performed By: #### C H8 #### S PATHOLOGY LABORATORY [address] [place] [address], MCV (RBC) [Entitic vol] 87 fL Normal 80-100 [facility] Comment on above: Performed By: #### C H8 #### S PATHOLOGY LABORATORY [address] [place] [address], Platelet mean volume (Bld) [Entitic vol] 7.2 fL Low 7.5-11.2 [facility] Comment on above: Performed By: #### C H8 #### S PATHOLOGY LABORATORY [address], [place], Platelets (Bld) [#/Vol] 201 10*3/uL Normal 150-400 [facility] Comment on above: Performed By: #### C H8 #### S PATHOLOGY LAB[facility]AT[facility] [address], [place], RBC (Bld) [#/Vol] 3.90 10*6/uL Low 4.50-5.90 [facility] Comment on above: Performed By: #### C H8 #### S [facility]OLOG[facility] LAB[facility] [address], [place], WBC (Bld) [#/Vol] 8.9 10*3/uL Normal 4.5-11.5 [facility] Comment on above: Performed By: #### C H8 #### S [facility] LAB[facility] [address], [place], Care Plan Noteon 04-11-2023 Rubber Roller Grinder Operator Authentication Interface Message Text Problem: Routine Care: [...] met Outcome: Adequate for Discharge Normal [facility] MAGNESIUMon 04-11-2023 Magnesium [Mass/Vol] 2.0 mg/dL Normal 1.9-2.7 [facility] Comment on above: Result Comment: Note updated reference ranges. Performed By: #### M G, PHOS #### [facility] [address], [place], Magnesium [Mass/Vol] 2.0 mg/dL 1.9 - 2 .7 mg/dL [facility] Comment on above: Note updated referen ce ranges. No Panel Informationon 04-11 Interpretation and review of laboratory results Normal [facility] PHOSPHORUSon 04-11-2023 Phosphate [Mass/Vol] 4.5 mg/dL Normal 2.5-5.0 [facility] Comment on above: Result Comment: Note updated reference ranges. Performed By: #### M G, PHOS #### [facility] [address], [place], Phosphate [Mass/Vol] 4.5 mg/dL 2.5 - 5 .0 mg/dL [facility] Comment on above: Note updated referen ce ranges. Progress Noteson 04-11-2023 Rubber Roller Grinder Operator Authentication Interface Message Text ---- GENERAL INFORMATION --- TRAUMA FLOOR - STAFF NOTE Patient Name: Eduadra Williamson Admission Date: 04/08/2023 Patient seen and examined on 04/11/23 -- INTERVAL HISTORY/EVENTS Background: Eduarda Williamson is a 32 year old male with no significant PMHx brought in by EMS as a transfer from [facility] following a fall from height. 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 -LOC -headstrike -AC/AP. 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 CTA redemonstrates the focal hematoma in the RLQ with no evidence of active extravasation. No PTX on imaging. Mild increase in the amount of hemoperitoneum which abuts loops of lbowel. Admitted to trauma [facility] for serial abdominal exams. RADHA splinted by ortho. Hospital Course: 04/08/2023: Fall from ht. Tx'd to [facility] from formerly [facility] for serial abdominal exams and orthopedic consultation. 04/09: Abdominal exams benign. H/H stable. Admitted to Trauma [facility]. 24 Hour Events: This is my first [...] Hct MCV RDW Plt PT aPTT INR 04/11/23 0018 8.9 3.90 11.3 33.8 87 14.0 201 Basic Metabolic Panel Na K Cl CO2 Gap Glu BUN Cr Ca Mg PO4 04/11/23 0018 4.5 Comment: Note updated reference ranges. 04/11/23 0018 2.0 Comment: Note updated reference ranges. Fingerstick [...] Continue pulmonary toilet, encourage IS - Respiratory Cloud Developer Protocol - Maintain O2 Sats > 92% [...] off (more content not included)... Normal [facility] BASIC METABOLIC PANELon - 0-2023 Anion gap [Moles/Vol] 13 mmol/L Normal 10-20 [facility] Comment on above: Performed By: #### C H8 #### [facility] [address] [place] [address], Calcium [Mass/Vol] 8.9 mg/dL Normal 8.6-10.3 [facility] Comment on above: Result Comment: Note updated reference ranges. Performed By: #### C H8 #### [facility] [address], [place], Chloride [Moles/Vol] 102 mmol/L Normal 98-107 [facility] Comment on above: Result Comment: Note updated reference ranges. Performed By: #### C H8 #### [facility] [address], [place], CO2 [Moles/Vol] 26 mmol/L Normal 21-31 [facility] Comment on above: Result Comment: Note updated reference ranges. Performed By: #### C H8 #### [facility] [address], [place], Creatinine [Mass/Vol] 0.85 mg/dL Normal 0.70-1.30 [facility] Comment on above: Result Comment: Note updated reference ranges. Performed By: #### C H8 #### [facility] [address], [place], ESTIMATED GFR (CKD-EPI) 120 mL/min/1.73sqm Normal >=60 [facility] Comment on above: Result Comment: 2020 [...] Inclusion of Race in Diagnosing Kidney Disease. [place] Journal of Kidney Diseases 2021;79(2):268-88.e1. 2. N Engl J Med 1 Vol. 385 Issue 19 Pages 7642-1724 Performed By: #### C H8 #### S PATHOLOGY LAB[facility]ATORY [address], [place], Glucose [Mass/Vol] 87 mg/dL Normal 74-109 [facility] Comment on above: Performed By: #### C H8 #### S PATH[facility] [address], [place], Potassium [Moles/Vol] 4.1 mmol/L Normal 3.5-5.0 [facility] Comment on above: Result Comment: Note updated reference ranges. Note updated reference ranges. Performed By: #### C H8 #### [facility] [address], [place], Sodium [Moles/Vol] 137 mmol/L Normal 136-145 [facility] Comment on above: Result Comment: Note updated reference ranges. Performed By: #### C H8 #### S [facility] [address], [place], Urea nitrogen [Mass/Vol] 13 mg/dL Normal 7-25 The [facility] Comment on above: Result Comment: Note updated reference ranges. Performed By: #### C H8 #### [facility] [address] [place], [address] Basic metabolic 2000 panelon 04-10-2023 Anion gap [Moles/Vol] 13 mmol/L 10 - 20 [facility] Calcium [Mass/Vol] 8.9 mg/dL 8.6 - 10. 3 mg/dL [facility] Comment on above: Note updated referen [...] Inclusion of Race in Diagnosing Kidney Disease. [place] Journal of Kidney Diseases 202;79(2):268-88.e1. 2. N Engl J Med 2020 Vol. 385 Issue 19 Pages 6807-2087 Glucose [Mass/Vol] 87 mg/dL 74 - 109 [...] [Ratio] 13.9 % 11.5 - 14.5 % [facility] Hematocrit (Bld) [Volume fraction] 35.3 % Low 41.0 - 53.0 % [facility] Hemoglobin (Bld) [Mass/Vol] 11.8 g/dL Low 13.9 - 16.3 g/dL [facility] Hospital Interpretation and review of laboratory results Abnormal [facility] MCH (RBC) [Entitic mass] 29.5 pg 26.0 - 34.0 pg [facility] MCHC (RBC) [Mass/Vol] 33.5 g/dL 32.0 - 35.9 g/dL [facility] MCV (RBC) [Entitic vol] 88 fL 80 - 100 fL [facility] Platelet mean volume (Bld) [Entitic vol] 7.8 fL 7.5 - 11.2 fL [facility] Platelets (Bld) [#/Vol] 185 10*3/uL 150 - 400 K/uL [facility] RBC (Bld) [#/Vol] 4.00 10*6/uL Low [facility] WBC (Bld) [#/Vol] 9.8 10*3/uL 4.5 - 11.5 K/uL [facility] COMPLETE BLOOD COUNTon 04-10 Erythrocyte distribution width (RBC) [Ratio] 13.9 % Normal 11.5-14.5 [facility] Comment on above: Performed By: #### C BC #### [facility] [address] [place] [address], Hematocrit (Bld) [Volume fraction] 35.3 % Low 41.0-53.0 [facility] Comment on above: Performed By: #### C BC #### [facility] [address] [place] [address], Hemoglobin (Bld) [Mass/Vol] 11.8 g/dL Low 13.9-16.3 [facility] Comment on above: Performed By: #### C BC #### [facility] [address] [place] [address], MCH (RBC) [Entitic mass] 29.5 pg Normal 26.0-34.0 [facility] Comment on above: Performed By: #### C BC #### S [facility] LABORAT[facility] [address], [place], MCHC (RBC) [Mass/Vol] 33.5 g/dL Normal 32.0-35.9 [facility] Comment on above: Performed By: #### C BC #### S [facility] [address], [place], MCV (RBC) [Entitic vol] 88 fL Normal 80-100 [facility] Comment on above: Performed By: #### C BC #### S [facility] [address], [place], Platelet mean volume (Bld) [Entitic vol] 7.8 fL Normal 7.5-11.2 [facility] Comment on above: Performed By: #### C BC #### [facility] [address] [place], [place], Platelets (Bld) [#/Vol] 185 10*3/uL Normal 150-400 [facility] Comment on above: Performed By: #### C BC #### S [facility] [address], [place], RBC (Bld) [#/Vol] 4.00 10*6/uL Low 4.50-5.90 [facility] Comment on above: Performed By: #### C BC #### S [facility] [address] [place], [place], WBC (Bld) [#/Vol] 9.8 10*3/uL Normal 4.5-11.5 [facility] Comment on above: Performed By: #### C BC #### [facility] [address], [place], Care Plan Noteon 04-10-2023 Rubber Roller Grinder Operator Authentication Interface Message Text Problem: Routine Care: [...] achieved and maintained Outcome: Met Normal [facility] EKG 12 LEAD - PERFORMon 04-01 Diagnosis Sinus tachycardia Nonspecific T wave abnormality Abnormal ECG No previous ECGs available Confirmed by ROSALINA LIGHT ([id number]) on 04/10/2023 11:02:28 PM [facility] P wave Atrium by EKG 101 BPM [facility] P wave axis 40 degrees [facility] P-R Interval 150 ms [facility] Q-T interval 322 ms [facility] Q-T interval corrected 417 ms [facility] QRS axis 70 degrees [facility] QRS duration 104 ms [facility] T wave axis 10 degrees [facility] MAGNESIUMon 04-10-2023 Magnesium [Mass/Vol] 1.8 mg/dL Low 1.9-2.7 [facility] Comment on above: Result Comment: Note updated reference ranges. Performed By: #### C BC #### [facility] [address] [place] [address], Interpretation and review of laboratory results Abnormal [facility] Magnesium [Mass/Vol] 1.8 mg/dL Low 1.9 - 2 .7 mg/dL [facility] Comment on above: Note updated referen ce ranges. No Panel Informationon 04-10 Interpretation and review of laboratory results Normal [facility] PHOSPHORUSon 04-10-2023 Phosphate [Mass/Vol] 4.4 mg/dL Normal 2.5-5.0 [facility] Comment on above: Result Comment: Note updated reference ranges. Performed By: #### C BC #### [facility] [address], [place], Phosphate [Mass/Vol] 4.4 mg/dL 2.5 - 5 .0 mg/dL [facility] Comment on above: Note updated referen ce ranges. Progress Noteson 04-10-2023 Rubber Roller Grinder Operator Authentication Interface Message Text ---- GENERAL INFORMATION --- TRAUMA FLOOR - STAFF NOTE Patient Name: Eduarda Williamson Admission Date: 04/08/2023 Patient seen and examined on 04/10/23 -- INTERVAL HISTORY/EVENTS Background: Eduarda Williamson is a 32 year old male with no significant PMHx brought in by EMS as a transfer from [facility] following a fall from height. 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 -LOC -headstrike -AC/AP. 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 CTA redemonstrates the focal hematoma in the RLQ with no evidence of active extravasation. No PTX on imaging. Mild increase in the amount of hemoperitoneum which abuts loops of lbowel. Admitted to trauma [facility] for serial abdominal exams. RADHA splinted by ortho. Hospital Course: 04/08/2023: Fall from ht. Tx'd to [facility] from formerly [facility] for serial abdominal exams and orthopedic consultation. 04/09: Abdominal exams benign. H/H stable. Admitted to Trauma [facility]. 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 No bowel injury/active extravasation. Serial abdominal exams stable. Passing flatus, tolerating clears - Advance to regular diet - Continue bowel regimen of senna, miralax, p (more content not included)... Normal [facility] XR FOREARM LEFT 2 VIEWSon XR [...] ewsOrdered By: Jean Carlos Phipps on 04-10-2023 [facility] Work Phone: BASIC METABOLIC PANELon Anion gap [Moles/Vol] 12 mmol/L Normal 10-20 [facility] Comment on above: Performed By: #### C H8 #### S [facility] [address] [place] [address], Calcium [Mass/Vol] 8.8 mg/dL Normal 8.6-10.3 [facility] Comment on above: Result Comment: Note updated reference ranges. Performed By: #### C H8 #### S [facility] [address] [place] [address], Chloride [Moles/Vol] 106 mmol/L Normal 98-107 [facility] Comment on above: Result Comment: Note updated reference ranges. Performed By: #### C H8 #### S [facility] [address] [place] [address], CO2 [Moles/Vol] 25 mmol/L Normal 21-31 [facility] Comment on above: Result Comment: Note updated reference ranges. Performed By: #### C H8 #### S [facility] [address] [place] [address], Creatinine [Mass/Vol] 0.82 mg/dL Normal 0.70-1.30 [facility] Comment on above: Result Comment: Note updated reference ranges. Performed By: #### C H8 #### S [facility] [address] [place] [address], ESTIMATED GFR (CKD-EPI) 121 mL/min/1.73sqm Normal >=60 [facility] Comment on above: Result Comment: 2020 CKD EPI Equation using Creatinine without Race Comment: Estimated glomerular filtration rate (eGFR) is calculated without a race coefficient. Values should be interpreted in the context of the patient's full clinical presentation. Reference: 1. Atif Valles, Frida M, Navdeep POWERS, et al.. A Unifying Approach for GFR Estimation: Recommendations of the NKF-ASN Task Force on Reassessing the Inclusion of Race in Diagnosing Kidney Disease. [place] Journal of Kidney Diseases 2021;79(2):268-88.e1. 2. N Engl J Med 1 Vol. 385 Issue 19 Pages 9659-0272 Performed By: #### C H8 #### [facility] [address] [place], [place], Glucose [Mass/Vol] 103 mg/dL Normal 74-109 [facility] Comment on above: Performed By: #### C H8 #### [facility] [address] [place], [place], Potassium [Moles/Vol] 4.3 mmol/L Normal 3.5-5.0 [facility] Comment on above: Result Comment: Note updated reference ranges. Note updated reference ranges. Performed By: #### C H8 #### [facility] [address] [place] [address], Sodium [Moles/Vol] 139 mmol/L Normal 136-145 [facility] Comment on above: Result Comment: Note updated reference ranges. Performed By: #### C H8 #### [facility] [address], [place], Urea nitrogen [Mass/Vol] 14 mg/dL Normal 7-25 [facility] Comment on above: Result Comment: Note updated reference ranges. Performed By: #### C H8 #### S [facility] [address] [place] [address], Basic metabolic 2000 panelon 04-09-2023 Anion gap [...] Inclusion of Race in Diagnosing Kidney Disease. [place] Journal of Kidney Diseases 2021;79(2):268-88.e1. 2. N Engl J Med 2020 Vol. 385 Issue 19 Pages [phone] Glucose [Mass/Vol] 103 mg/dL 74 - 109 [...] on above: Note updated referen ce ranges. [facility] CBC panel Auto (Bld)on 04-09 Erythrocyte distribution [...] 12.7 g/dL Low 13.9 - 16.3 g/dL [facility] Interpretation and review of laboratory results [...] RBC (Bld) [#/Vol] 4.37 10*6/uL Low [facility] WBC (Bld) [#/Vol] 11.6 10*3/uL High 4.5 - 11.5 K/uL [facility] COMPLETE BLOOD COUNTon 04-09 Erythrocyte distribution width (RBC) [Ratio] 14.1 % Normal 11.5-14.5 [facility] Comment on above: Performed By: #### C BC #### S [facility] [address] [place] [address], [phone] Hematocrit (Bld) [Volume fraction] 37.7 % Low 41.0-53.0 [facility] Comment on above: Performed By: #### C BC #### S [facility] [address], [place], Hemoglobin (Bld) [Mass/Vol] 12.5 g/dL Low 13.9-16.3 [facility] Comment on above: Performed By: #### C BC #### [facility] [address] [place] [address], MCH (RBC) [Entitic mass] 29.0 pg Normal 26.0-34.0 [facility] Comment on above: Performed By: #### C BC #### [facility] [address], [place], MCHC (RBC) [Mass/Vol] 33.2 g/dL Normal 32.0-35.9 [facility] Comment on above: Performed By: #### C BC #### [facility] [address] [place] [address], MCV (RBC) [Entitic vol] 87 fL Normal 80-100 [facility] Comment on above: Performed By: #### C BC #### [facility] [address] [place] [address], Platelet mean volume (Bld) [Entitic vol] 7.3 fL Low 7.5-11.2 [facility] Comment on above: Performed By: #### C BC #### [facility] [address] [place] [address], Platelets (Bld) [#/Vol] 198 10*3/uL Normal 150-400 [facility] Comment on above: Performed By: #### C BC #### [facility] [address] [place] [address], RBC (Bld) [#/Vol] 4.31 10*6/uL Low 4.50-5.90 [facility] Comment on above: Performed By: #### C BC #### [facility] [address] [place] [address], WBC (Bld) [#/Vol] 10.8 10*3/uL Normal 4.5-11.5 [facility] Comment on above: Performed By: #### C BC #### [facility] [address] [place] [address], Erythrocyte distribution width (RBC) [Ratio] 14.3 % Normal 11.5-14.5 [facility] Comment on above: Performed By: #### C BC #### [facility] [address] [place] [address], Hematocrit (Bld) [Volume fraction] 38.2 % Low 41.0-53.0 [facility] Comment on above: Performed By: #### C BC #### [facility] [address] [place] [address], Hemoglobin (Bld) [Mass/Vol] 12.7 g/dL Low 13.9-16.3 [facility] Comment on above: Performed By: #### C BC #### [facility] [address] [place] [address], MCH (RBC) [Entitic mass] 29.1 pg Normal 26.0-34.0 [facility] Comment on above: Performed By: #### C BC #### [facility] [address] [place] [address], MCHC (RBC) [Mass/Vol] 33.3 g/dL Normal 32.0-35.9 [facility] Comment on above: Performed By: #### C BC #### [facility] [address] [place] [address], MCV (RBC) [Entitic vol] 88 fL Normal 80-100 [facility] Comment on above: Performed By: #### C BC #### [facility] [address] [place] [address], Platelet mean volume (Bld) [Entitic vol] 7.4 fL Low 7.5-11.2 [facility] Comment on above: Performed By: #### C BC #### [facility] [address] [place] [address], Platelets (Bld) [#/Vol] 208 10*3/uL Normal 150-400 [facility] Comment on above: Performed By: #### C BC #### [facility] [address] [place] [address], RBC (Bld) [#/Vol] 4.37 10*6/uL Low 4.50-5.90 [facility] Comment on above: Performed By: #### C BC #### [facility] [address], [place], WBC (Bld) [#/Vol] 11.6 10*3/uL High 4.5-11.5 [facility] Comment on above: Performed By: #### C BC #### [facility] [address], [place], Care Plan Noteon 04-09-2023 Rubber Roller Grinder Operator Authentication Interface Message Text Problem: Routine Care: [...] will be met Outcome: Progressing Normal [facility] Consultson 04-09-2023 Rubber Roller Grinder Operator Authentication Interface Message Text Expand All Collapse All Orthopaedic Surgery Consult H AND P Requesting Provider / Service: Trauma CC: L forearm pain HPI: RHD 32M with PMH of daily smoking presents to [facility] after fall down a ladder. [...] in the fall. Charlee Coreas, PGY-4 Pager: [phone] Social Determinants of Health Financial Resource Strain: High Risk (12/04/2021) Received from [facility] Overall Financial Resource Strain (CARDIA) Difficulty of Paying Living Expenses: Hard Food Insecurity: Food Insecurity Present (12/04/2021) Received from [facility] Hunger Vital Sign Worried About Running Out of Food in the Last Year: Often true Ran Out of Food in the Last Year: Often true Transportation Needs: No Transportation Needs (12/04/2021) Received from [facility] PRAPARE - Transportation Lack of Transportation (Medical): No Lack of Transportation (Non-Medical): No No Known Allergies No current facility-administered medications for this encounter. Current Outpatient Medications: raNITIdine (ZANTAC) 75 MG tablet, Take 1 Tablet by mouth 2 times daily., Disp: 60 Tablet, Rfl: 3 ergocalciferol (DRISDOL) 1.25 MG (67595 UT) capsule, Take 1 Capsule by mouth [...] plan on outpatient surgical management - NINA KIMBROUGHEmmanuelle STS 04/08/23 This consult was seen and staffed within 30 minutes of the initial consult. Plan was discussed with attending surgeon Dr. Ismael Renee MD Resident, PGY-2 Department of Orthopaedic Surgery For questions/issues: Patient will be followed by the Hand team, at 0700 the day following initial consultation. Please page: Ortho Hand Team: Flor Dunham, PGY4: [phone] Between 5pm-7am, week (more content not included)... Normal [facility] LACTIC ACIDon 04-09-2023 CR LACT 1.2 mmol/L Normal 0.5-1.6 [facility] Comment on above: Performed By: #### L ACT ####[facility] [id number] [place], [phone] LACTIC ACIDOrdered By: Alisia Paris on 04-09-2023 Interpretation and review of laboratory results Normal [facility] Lactate [Moles/Vol] 1.2 mmol/L 0.5 - 1. 6 mmol/L [facility] Progress Noteson 04-09-2023 Rubber Roller Grinder Operator Authentication Interface Message Text Division of Trauma, Surgical Critical Care, EGS Ticket to Roll Note . Provider Called Report To (Enter Provider Name, Service, and Time): Leandra Velázquez. Trauma Surgery. 1936, who is the RUP. The patient is transferring from ED, room # 48, to Trauma [address], room # 6-613. The patient was added to the Trauma Surgery list. Tiara Haji MD RUP = Receiving unit provider RNF = Regular nursing floor Normal [facility] Rubber Roller Grinder Operator Authentication Interface Message Text --- GENERAL INFORMATION --- TRAUMA FLOOR - STAFF NOTE Patient seen and examined on 04/09/2023 Patient Name: Eduarda Williamson Admission Date: 04/08/2023 -- INTERVAL HISTORY/EVENTS Background: Eduarda Williamson is a 32 year old male (healthy) brought in by EMS as a transfer from [facility] after a fall from height. Reports he was working on a [employer]/utility pole and fell off the top of [...] by orthopedic surgery with splint placed to [facility]. 24-hour Events: Patients abdominal exam was stable [...] as a CAT 2 trauma transfer from [facility] after a fall from 30 ft. Found [...] Jonathon Pineda MD PGY1 Trauma Surgery Pager: [phone] Teaching Physician Note: I saw and evaluated [...] and Emergency General Surgery Department of Surgery [facility] Pager: [phone] Normal [facility] Rubber Roller Grinder Operator Authentication Interface Message Text Serial abdominal exam at this time: soft non tender without guarding or rebound and states abdominal pain is improving Hiro Porter, DO Normal [facility] Rubber Roller Grinder Operator Authentication Interface Message Text Serial abdominal exam at this time: soft non tender without guarding or rebound Hiro Porter, DO Normal [facility] XR Radius and Ulna - left Vi ewson 04-09-2023 Radiology Study observation (narrative) [facility] ABO RH TYPEon 04-08-2023 ABO and Rh group Nom (Bld) Blood group O Rh(D) positive Normal [facility] Comment on above: Performed By: #### C BC #### [facility] [address] [place] [address], [phone] [facility] ABO/Rh Retypeon 04-08-2023 ABO/RH Recheck Result Positive Normal [facility] Comment on above: Result Comment: PERF ORMED BY: [facility] [address] [place] [address] PATHOLOGIST HEALTH PROMOTION MANAGER ZENY CURRIE M.D. AMYLASEon 04-08-2023 DEMETRICE 33 IU/L Normal 28-100 [facility] Comment on above: Performed By: #### C BC #### [facility] [address] [place], [phone] Amylase [Catalytic activity/Vol] 33 U/L [facility] Activated partial thrombopla stin time (aPTT) in platelet poor plasma by coagulation aOrdered By: Leonides Walker on 04-08-2023 aPTT Coag (PPP) [Time] 27.4 s 25.1-36.5 [facility] Comment on above: A hematocrit value g reater than 55% may lead to inaccurate results in coagulation testing. Patients having hematocrit values >55% require a special collection tube for coagulation studies. Please contact the laboratory at [phone] for redraw instructions. AdmissionCareon 04-08-2023 Rubber Roller Grinder Operator Authentication Interface Message Text AdmissionCare Guideline: Abdominal [...] AdmissionCare documentation entered by: Luis Eduardo Buenrostro [facility] AdExtent, 27th edition, Copyright ??? [address] [facility] Q-Bot [facility] All Rights Reserved. [id number]:32:11-05:00 Normal [facility] Alanine aminotransferase [En zymatic activity/volume] in Serum or PlasmaOrdered By: Leonides Walker on 04-08-2023 ALT [Catalytic activity/Vol] 57 U/L 7-52 [facility] Albumin [Mass/volume] in Ser um or Plasma by Bromocresol green (BCG) dye binding methoOrdered By: Leonides Walker on 04-08-2023 Albumin BCG dye [Mass/Vol] 4.2 g/dL 3.5-5.7 [facility] Alkaline phosphatase [Enzyma tic activity/volume] in Serum or PlasmaOrdered By: Leonides Walker on 04-08-2023 ALP [Catalytic activity/Vol] 66 U/L 34-104 [facility] Amphetamine Screen Ql (U)Ord ered By: Leonides Walker on 04-08-2023 Amphetamines Ql (U) Negative Negative [facility] Aspartate aminotransferase [ Enzymatic activity/volume] in Serum or PlasmaOrdered By: Leonides Walker on 04-08-2023 AST [Catalytic activity/Vol] 41 U/L 13-39 [facility] BASIC METABOLIC PANELon 02-0 Anion gap [Moles/Vol] 13 mmol/L Normal 10-20 [facility] Comment on above: Performed By: #### C H8 #### S PATHOLOGY LABORATORY [address] [place] [address], Calcium [Mass/Vol] 9.4 mg/dL Normal 8.6-10.3 [facility] Comment on above: Result Comment: Note updated reference ranges. Performed By: #### C H8 #### S PATHOLOGY LABORATORY [address] [place] [address], Chloride [Moles/Vol] 106 mmol/L Normal 98-107 [facility] Comment on above: Result Comment: Note updated reference ranges. Performed By: #### C H8 #### S PATHOLOGY LABORATORY [address] [place] [address], CO2 [Moles/Vol] 26 mmol/L Normal 21-31 [facility] Comment on above: Result Comment: Note updated reference ranges. Performed By: #### C H8 #### S PATHOLOGY LABORATORY [address] [place] [address], Creatinine [Mass/Vol] 0.86 mg/dL Normal 0.70-1.30 [facility] Comment on above: Result Comment: Note updated reference ranges. Performed By: #### C H8 #### S PATHOLOGY LABORATORY [address] [place] [address], ESTIMATED GFR (CKD-EPI) 119 mL/min/1.73sqm Normal >=60 [facility] Comment on above: Result Comment: 2020 [...] Inclusion of Race in Diagnosing Kidney Disease. [place] Journal of Kidney Diseases 2021;79(2):268-88.e1. 2. N Engl J Med 1 Vol. 385 Issue 19 Pages 3139-6941 Performed By: #### C H8 #### [facility] [address] [place] [address], Glucose [Mass/Vol] 106 mg/dL Normal 74-109 [facility] Comment on above: Performed By: #### C H8 #### [facility] [address] [place] [address], Potassium [Moles/Vol] 3.9 mmol/L Normal 3.5-5.0 [facility] Comment on above: Result Comment: Note updated reference ranges. Note updated reference ranges. Performed By: #### C H8 #### [facility] [address], [place], Sodium [Moles/Vol] 141 mmol/L Normal 136-145 [facility] Comment on above: Result Comment: Note updated reference ranges. Performed By: #### C H8 #### [facility] [address] [place] [address], Urea nitrogen [Mass/Vol] 14 mg/dL Normal 7-25 [facility] Comment on above: Result Comment: Note updated reference ranges. Performed By: #### C H8 #### [facility] [address], [place], Barbiturates [Presence] in U rine by Screen methodOrdered By: Leonides Walker on 04-08-2023 Barbiturates Screen Ql (U) Negative Negative [facility] Basic metabolic 2000 panelon 04-08-2023 Anion gap [...] Inclusion of Race in Diagnosing Kidney Disease. [place] Journal of Kidney Diseases 202;79(2):268-88.e1. 2. N Engl J Med 1 Vol. 385 Issue 19 Pages [id number] Glucose [Mass/Vol] 106 mg/dL 74 - 109 [...] 04-08-2023 Basophils (Bld) [#/Vol] 0.2 10*3/uL 0.0-0.2 [facility] Basophils/100 WBC Auto (Bld) Ordered By: Leonides Walker on 04-08-2023 Basophils/100 WBC (Bld) 1.5 % . [facility] Benzodiazepines Screen Ql (U )Ordered By: Leonides Walker on 04-08-2023 Benzodiazepines Ql (U) Negative Negative [facility] Benzoylecgonine [Presence] i n Urine by Screen methodOrdered By: Leonides Walker on 04-08-2023 Benzoylecgonine Screen Ql (U) Negative Negative [facility] Bilirubin.total [Mass/volume ] in Serum or PlasmaOrdered By: Leonides Walker on 04-08-2023 Bilirubin [Mass/Vol] 0.4 mg/dL 0.3-1.0 [facility] CBC WITH DIFFERENTIALon Basophils (Bld) [#/Vol] 0.08 10*3/uL Normal 0.00-0.20 [facility] Comment on above: Performed By: #### C BCDSAT ####[facility] PATHOLOGY [id number] [place], [place], Basophils/100 WBC (Bld) 0.3 % Normal <=1.9 [facility] Comment on above: Performed By: #### C BCDSAT ####[facility] PATHOLOGY [id number] [place], [place], Eosinophils (Bld) [#/Vol] 0.06 10*3/uL Normal 0.00-0.70 [facility] Comment on above: Performed By: #### C BCDSAT ####[facility] PATHOLOGY [id number] [place], [place], Eosinophils/100 WBC (Bld) 0.3 % Normal 0.1-4.0 [facility] Comment on above: Performed By: #### C BCDSAT ####S PATHOLOGY [id number] [place], [place], Erythrocyte distribution width (RBC) [Ratio] 14.2 % Normal 11.5-14.5 [facility] Comment on above: Performed By: #### C BCDSAT ####[facility] PATHOLOGY [id number] [place] [address], Hematocrit (Bld) [Volume fraction] 43.3 % Normal 41.0-53.0 [facility] Comment on above: Performed By: #### C SALASDSAT ####[facility] PATHOLOGY [id number] [place], [place], Hemoglobin (Bld) [Mass/Vol] 14.1 g/dL Normal 13.9-16.3 [facility] Comment on above: Performed By: #### Reena NIXAT ####[facility] PATHOLOGY [id number] [place] [address], Lymphocytes (Bld) [#/Vol] 2.14 10*3/uL Normal 1.00-4.80 [facility] Comment on above: Performed By: #### Reena NIXAT ####[facility] PATHOLOGY [id number] [place] [address], Lymphocytes/100 WBC (Bld) 9.5 % Low 24.0-44.0 [facility] Comment on above: Performed By: #### Reena NIXAT ####[facility] PATHOLOGY [id number] [place] [address], MCH (RBC) [Entitic mass] 28.6 pg Normal 26.0-34.0 [facility] Comment on above: Performed By: #### Reena NIXAT ####[facility] PATHOLOGY [id number] [place] [address], MCHC (RBC) [Mass/Vol] 32.6 g/dL Normal 32.0-35.9 [facility] Comment on above: Performed By: #### Reena NIXAT ####[facility] PATHOLOGY [id number] [place] [address], MCV (RBC) [Entitic vol] 88 fL Normal 80-100 [facility] Comment on above: Performed By: #### Reena NIXAT ####[facility] PATHOLOGY [id number] [place], [place], MONOCYTE DISTRIBUTION WIDTH 18 Normal <=20 [facility] Comment on above: Performed By: #### Reena NIXAT ####[facility] PATHOLOGY [id number] [place] [address], Monocytes (Bld) [#/Vol] 1.30 10*3/uL High 0.20-1.00 [facility] Comment on above: Performed By: #### Reena NIXAT ####[facility] PATHOLOGY [id number] [place], [place], Monocytes/100 WBC (Bld) 5.8 % Normal 2.0-11.0 [facility] Comment on above: Performed By: #### Reena NIXAT ####[facility] PATHOLOGY [id number] [place] [address], Neutrophils (Bld) [#/Vol] 18.95 10*3/uL High 1.50-8.00 [facility] Comment on above: Performed By: #### Reena NIXAT ####[facility] PATHOLOGY [id number] [place] [address], Neutrophils/100 WBC (Bld) 84.2 % High 31.0-76.0 [facility] Comment on above: Performed By: #### Reena NIXAT ####[facility] PATHOLOGY [id number] [place] [address], Platelet mean volume (Bld) [Entitic vol] 7.4 fL Low 7.5-11.2 [facility] Comment on above: Performed By: #### Reena NIXAT ####[facility] PATHOLOGY [id number] [place], [place], Platelets (Bld) [#/Vol] 245 10*3/uL Normal 150-400 [facility] Comment on above: Performed By: #### Reena NIXAT ####[facility] PATHOLOGY [id number] [place], [place], RBC (Bld) [#/Vol] 4.93 10*6/uL Normal 4.50-5.90 [facility] Comment on above: Performed By: #### Reena NIXAT ####[facility] PATHOLOGY [id number] [place], [place], WBC (Bld) [#/Vol] 22.5 10*3/uL High 4.5-11.5 [facility] Comment on above: Performed By: #### Reena NIXAT ####S PATHOLOGY [id number] [place], [address] Basophils (Bld) [#/Vol] 0.08 10*3/uL 0.00 - [...] [Mass/Vol] 14.1 g/dL 13.9 - 16.3 g/dL [facility]ation and [...] - 11.2 fL [facility] Platelets (Bld) [#/Vol] 245 10*3/uL 150 - 400 K/uL [facility] RBC (Bld) [#/Vol] 4.93 10*6/uL [facility] WBC (Bld) [#/Vol] 22.5 10*3/uL High 4.5 - 11.5 K/uL [facility] T-SPINE/L-SPINE W/O CONTR Rosie 04-08-2023 CT T-SPINE/L-SPINE W/O CONTRAST EXAMINATION: CT T-SPINE/L-SPINE W/O CONTRASTPRO/PRO 04/08/2023 05:42 PM CLINICAL HISTORY: Fall more than 10 feet ASSOCIATED DIAGNOSIS: Fall more than 10 feet ORDERING PROVIDER: TIARA HAJI TECHNBEE NOTE: COMPARISON: None TECHNIQUE: Thin axial images [...] or lumbar spine. MACRO: None Normal [facility] CT Thoracic and lumbar spine WO contraston 04-08-2023 EXAMINATION: CT T-SPINE/L-SPINE W/O CONTRASTPRO/PRO 04/08/2023 05:42 PM CLINICAL HISTORY: Fall more than 10 feet ASSOCIATED DIAGNOSIS: Fall more than 10 feet ORDERING PROVIDER: TIARA HAJI TECHNBEE NOTE: COMPARISON: None TECHNIQUE: Thin axial images [...] the thoracic or lumbar spine. MACRO: None [facility] CT Thoracic and lumbar spine WO contrastOrdered By: Jeancarlos Gonzalez on 04-08-2023 [facility] Work Phone: CT abdomen pelvis w conon CT abdomen pelvis w con [facility] [place] [address] [place] [address] CT Scan Report Signed Patient: Eduarda Williamson MR#: [id number] : 1990 Acct:[id number] Age/Sex: 32 / M ADM Date: 04/08/23 Loc: ER Room: Type: PRE ER Attending Dr: Copies to: Leonides Walker DO Ordering Provider: Leonides Walker DO Date of Service: 04/08/23 CT/CT abdomen pelvis w con: traumatic injury ([id number]) CT/CT chest w con: traumatic injury CT [...] Naga Orlando M.D.04/08/2023 3:23 PM Dictation Location: [place] [address] Transcribed By: [facility] 04/08/23 1523 Dictated By: Naga Orlando II, MD 04/08/23 1506 Signed By: 04/08/23 15[address] [facility] [address] cervical spine wo conon 0 04-08-2023 CT cervical spine wo con [facility] [place] [address] [place] [address] CT Scan Report Signed Patient: Eduarda Williamson MR#: [id number] : 1990 Acct:[id number] Age/Sex: 32 / M ADM Date: 04/08/23 Loc: ER Room: Type: PRE ER Attending Dr: Copies to: Leonides Walker DO Ordering Provider: Leonides Walker DO Date of Service: 04/08/23 CT/CT cervical spine wo con: traumatic injury ([id number]) CT/CT head/brain wo con: traumatic injury CT [...] Naga Orlando M.D.04/08/2023 3:06 PM Dictation Location: [place] [address] Transcribed By: AMADOR 04/08/23 1506 Dictated By: Naga Orlando II, MD 04/08/23 1452 Signed By: 04/08/23 1506 [facility] CTA CHEST/ABD/PELVIS W/on CTA CHEST/ABD/PELVIS W/ EXAMINATION: CTA CHEST/ABD/PELVIS W/ 04/08/2023 05:42 PM CLINICAL HISTORY: Fall more than 10 feet ASSOCIATED DIAGNOSIS: Fall more than 10 feet ORDERING PROVIDER: TIARA HAJI TECHNBEE NOTE: Patient had contrast at outside hospital [...] from contrast bolus. MACRO: None Normal [facility] CTA Chest vessels and Abdomi nal vessels and Pelvis vessels W contrast IVOrdered By: Juan Daniel Hernandes on 04-08-2023 CT DLP 2532.7 (mGy.cm) [facility] Work Phone: CT Series Entire body,Entire body,Entire body,Entire body,Entire body [facility] Work Phone: CTDI VOL 5.3 (mGy),36.2 (mGy) ,12.3 (mGy),11.2 (mGy),12.3 (mGy) [facility] Work Phone: PHANTOM TYPE IEC Body Dosimetry Phantom,IEC Body Dosimetry Phantom,IEC Body Dosimetry Phantom,IEC Body Dosimetry Phantom,IEC Body Dosimetry Phantom [facility] Work Phone: [facility] Work Phone: CTA Chest vessels and Abdomi [...] Hernandes MD - 04/08/2023 EXAMINATION: CTA CHEST/ABD/PELVIS W/ 04/08/2023 05:42 PM [...] on 04-08-2023 Calcium [Mass/Vol] 9.4 mg/dL 8.6-10.3 [facility] Cannabinoids [Presence] in U rine by Screen methodOrdered By: Leonides Walker on 04-08-2023 Cannabinoids Screen Ql (U) Negative Negative [facility] Comment on above: These are unconfirme d results and should not be used for legal purposes. Drug Cut-Off Concentration: AMPH 1000 ng/mL SHIRLENE 200 ng/mL AJAY 200 ng/mL COCM 300 ng/mL OP 300 ng/mL PCP 25 ng/mL THC 20 ng/mL Carbon dioxide, total [Moles /volume] in Serum or PlasmaOrdered By: Leonides Walker on 04-08-2023 CO2 [Moles/Vol] 21.2 mmol/L 21.0-31.0 [facility] Chloride [Moles/volume] in S sha or PlasmaOrdered By: Leonides Walker on 04-08-2023 Chloride [Moles/Vol] 106 mmol/L 98-107 [facility] Complete Blood Count Auto Di ffon 04-08-2023 Basophils (Bld) [#/Vol] 0.2 10*3/uL Normal 0.0-0.2 [facility] Comment on above: Result Comment: PERF ORMED BY: [place] [address] PATHOLOGIST HEALTH PROMOTION MANAGER ZENY CURRIE M.D. Performed By: #### P T, CBC, CK, CMP, PTT, ETOH, LIPASE #### [address] Basophils/100 WBC (Bld) 1.5 % Normal . [facility] Comment on above: Performed By: #### P T, CBC, CK, CMP, PTT, ETOH, LIPASE #### [address] Eosinophils (Bld) [#/Vol] 0.1 10*3/uL Normal 0.0-0.45 [facility] Comment on above: Performed By: #### P T, CBC, CK, CMP, PTT, ETOH, LIPASE #### [address] Eosinophils/100 WBC (Bld) 1.2 % Normal . [facility] Comment on above: Performed By: #### P T, CBC, CK, CMP, PTT, ETOH, LIPASE #### [address] Erythrocyte distribution width (RBC) [Ratio] 13.8 % Normal 12.0-14.8 [facility] Comment on above: Performed By: #### P T, CBC, CK, CMP, PTT, ETOH, LIPASE #### [address] Hematocrit (Bld) [Volume fraction] 41.7 % Normal 38.8-50.0 [facility] Comment on above: Performed By: #### P T, CBC, CK, CMP, PTT, ETOH, LIPASE #### [address] Hemoglobin (Bld) [Mass/Vol] 13.9 g/dL Normal 13.0-17.0 [facility] Comment on above: Performed By: #### P T, CBC, CK, CMP, PTT, ETOH, LIPASE #### [address] Lymphocytes (Bld) [#/Vol] 3.9 10*3/uL Normal 1.00-4.8 [facility] Comment on above: Performed By: #### P T, CBC, CK, CMP, PTT, ETOH, LIPASE #### [address] Lymphocytes/100 WBC (Bld) 36.0 % Normal . [facility] Comment on above: Performed By: #### P T, CBC, CK, CMP, PTT, ETOH, LIPASE #### [address] MCH (RBC) [Entitic mass] 28.6 pg Normal 27.5-35.2 [facility] Comment on above: Performed By: #### P T, CBC, CK, CMP, PTT, ETOH, LIPASE #### [address] MCV (RBC) [Entitic vol] 85.5 fL Normal 83.5-101 [facility] Comment on above: Performed By: #### P T, CBC, CK, CMP, PTT, ETOH, LIPASE #### [address] Mean Corpuscular HGB Conc 33.4 g/dL Normal 32.5-35.6 [facility] Comment on above: Performed By: #### P T, CBC, CK, CMP, PTT, ETOH, LIPASE #### [address] Monocytes (Bld) [#/Vol] 0.7 10*3/uL Normal 0.0-0.8 [facility] Comment on above: Performed By: #### P T, CBC, CK, CMP, PTT, ETOH, LIPASE #### [address] Monocytes/100 WBC (Bld) 16.89 % Normal 0.00-20.00 [facility] Comment on above: Performed By: #### P T, CBC, CK, CMP, PTT, ETOH, LIPASE #### [address] Monocytes/100 WBC (Bld) 6.9 % Normal . [facility] Comment on above: Performed By: #### P T, CBC, CK, CMP, PTT, ETOH, LIPASE #### [address] Neutrophils (Bld) [#/Vol] 5.8 10*3/uL Normal 1.8-7.7 [facility] Comment on above: Performed By: #### P T, CBC, CK, CMP, PTT, ETOH, LIPASE #### [address] Neutrophils/100 WBC (Bld) 54.4 % Normal . [facility] Comment on above: Performed By: #### P T, CBC, CK, CMP, PTT, ETOH, LIPASE #### [address] NRBC% 0.1 /100{WBC} Normal 0-0.5 [facility] Comment on above: Performed By: #### P T, CBC, CK, CMP, PTT, ETOH, LIPASE #### [address] Platelet mean volume (Bld) [Entitic vol] 7.5 fL Normal 6.6-10.1 [facility] Comment on above: Performed By: #### P T, CBC, CK, CMP, PTT, ETOH, LIPASE #### [place] [address] [place] Platelets (Bld) [#/Vol] 270 10*3/uL Normal 150-450 [facility] Comment on above: Performed By: #### P T, CBC, CK, CMP, PTT, ETOH, LIPASE #### [address] RBC (Bld) [#/Vol] 4.88 10*6/uL Normal 3.90-5.60 [facility] Comment on above: Performed By: #### P T, CBC, CK, CMP, PTT, ETOH, LIPASE #### [address] WBC (Bld) [#/Vol] 10.7 10*3/uL High 4.1-10.5 [facility] Comment on above: Performed By: #### P T, CBC, CK, CMP, PTT, ETOH, LIPASE #### [address] Comprehensive Metabolic Pane airam 04-08-2023 Albumin [Mass/Vol] 4.2 g/dL Normal 3.5-5.7 [facility] Comment on above: Performed By: #### P T, CBC, CK, CMP, PTT, ETOH, LIPASE #### [address] Albumin/Globulin [Mass ratio] 1.8 {ratio} Normal [facility] Comment on above: Performed By: #### P T, CBC, CK, CMP, PTT, ETOH, LIPASE #### [address] ALP [Catalytic activity/Vol] 66 U/L Normal 34-104 [facility] Comment on above: Performed By: #### P T, CBC, CK, CMP, PTT, ETOH, LIPASE #### [address] ALT [Catalytic activity/Vol] 57 U/L High 7-52 [facility] Comment on above: Performed By: #### P T, CBC, CK, CMP, PTT, ETOH, LIPASE #### [address] Anion gap [Moles/Vol] 14.7 mmol/L Normal 6.0-15.0 [facility] Comment on above: Performed By: #### P T, CBC, CK, CMP, PTT, ETOH, LIPASE #### [address] AST [Catalytic activity/Vol] 41 U/L High 13-39 [facility] Comment on above: Performed By: #### P T, CBC, CK, CMP, PTT, ETOH, LIPASE #### [facility] [address] Bilirubin [Mass/Vol] 0.4 mg/dL Normal 0.3-1.0 [facility] Comment on above: Performed By: #### P T, CBC, CK, CMP, PTT, ETOH, LIPASE #### [facility] [address] Calcium [Mass/Vol] 9.4 mg/dL Normal 8.6-10.3 [facility] Comment on above: Performed By: #### P T, CBC, CK, CMP, PTT, ETOH, LIPASE #### [address] Chloride [Moles/Vol] 106 mmol/L Normal 98-107 [facility] Comment on above: Performed By: #### P T, CBC, CK, CMP, PTT, ETOH, LIPASE #### [address] CO2 [Moles/Vol] 21.2 mmol/L Normal 21.0-31.0 [facility] Comment on above: Performed By: #### P T, CBC, CK, CMP, PTT, ETOH, LIPASE #### [address] Creatinine [Mass/Vol] 0.91 mg/dL Normal 0.70-1.30 [facility] Comment on above: Performed By: #### P T, CBC, CK, CMP, PTT, ETOH, LIPASE #### [facility] [address] [place] [address] [place] Creatinine Clr Calc Pharmacy 152.91 Normal [facility] Comment on above: Performed By: #### P T, CBC, CK, CMP, PTT, ETOH, LIPASE #### [address] GFR/1.73 sq M.predicted MDRD (S/P/Bld) [Vol rate/Area] mL/min/{1.73_m2} Normal [facility] Comment on above: Performed By: #### P T, CBC, CK, CMP, PTT, ETOH, LIPASE #### [address] Globulin (S) [Mass/Vol] 2.3 g/dL [facility] Comment on above: Performed By: #### P T, CBC, CK, CMP, PTT, ETOH, LIPASE #### [address] Glucose [Mass/Vol] 95 mg/dL Normal 70-100 [facility] Comment on above: Result Comment: [facility] Glucose Reference Range is dependent on time and content of last meal. Glucose of more than 200 mg/dL in a nonstressed, ambulatory subject supports the diagnosis of Diabetes Mellitus. ADA recommended reference range Performed By: #### P T, CBC, CK, CMP, PTT, ETOH, LIPASE #### [address] Potassium [Moles/Vol] 3.9 mmol/L Normal 3.5-5.1 [facility] Comment on above: Performed By: #### P T, CBC, CK, CMP, PTT, ETOH, LIPASE #### [address] Protein [Mass/Vol] 6.5 g/dL Normal 6.4-8.9 [facility] Comment on above: Performed By: #### P T, CBC, CK, CMP, PTT, ETOH, LIPASE #### [address] Sodium [Moles/Vol] 138 mmol/L Normal 136-145 [facility] Comment on above: Performed By: #### P T, CBC, CK, CMP, PTT, ETOH, LIPASE #### [address] Urea nitrogen [Mass/Vol] 13 mg/dL Normal 7-25 [facility] Comment on above: Performed By: #### P T, CBC, CK, CMP, PTT, ETOH, LIPASE #### [facility] [address] [place] [id number] [facility] Creatine Kinaseon 04-08-2023 CK [Catalytic activity/Vol] 166 U/L Normal [facility] Comment on above: Result Comment: PERF ORMED BY: [facility] [address] [place] [address] PATHOLOGIST HEALTH PROMOTION MANAGER ZENY CURRIE M.D. Performed By: #### P T, CBC, CK, CMP, PTT, ETOH, LIPASE ####[facility] [address] Creatine kinase [Enzymatic a ctivity/volume] in Serum or PlasmaOrdered By: Leonides Walekr on 04-08-2023 CK [Catalytic activity/Vol] 166 U/L [facility] Creatinine [Mass/volume] in Serum or PlasmaOrdered By: Leonides Walker on 04-08-2023 Creatinine [Mass/Vol] 0.91 mg/dL 0.70-1.30 [facility] Drug Screen,Urineon 04-08-19 24 Amphetamine Screen,Urine Negative Normal Negative [facility] Comment on above: Performed By: #### U RDS ####[place] [id number] [address] Barbiturate Screen,Urine Negative Normal Negative [facility] Comment on above: Performed By: #### U RDS ####[place] [id number] [place] Benzodiazepines Screen,Urine Negative Normal Negative [facility] Comment on above: Performed By: #### U RDS ####[address] Cannabinoid Screen,Urine Negative Normal Negative [facility] Comment on above: Result Comment: Thes e are unconfirmed results and should not be used for legal purposes. Drug Cut-Off Concentration: AMPH 1000 ng/mL SHIRLENE 200 ng/mL AJAY 200 ng/mL COCM 300 ng/mL OP 300 ng/mL PCP 25 ng/mL THC 20 ng/mL PERFORMED BY: [facility] [address] [place] [address] PATHOLOGIST HEALTH PROMOTION MANAGER ZENY CURRIE M.D. Performed By: #### U RDS ####[facility] [place] [address] [facility] Cocaine Screen,Urine Negative Normal Negative [facility] Comment on above: Performed By: #### U RDS ####[facility] [place] [address] [facility] Opiate Screen,Urine Positive High Negative [facility] Comment on above: Performed By: #### U RDS ####[facility] [place] [address] [facility] Phencyclidine Screen,Urine Negative Normal Negative [facility] Comment on above: Performed By: #### U RDS ####[facility] [place] [address] [facility] ECG 12 lead ECGon 04-08-2023 ECG 12 lead ECG [facility] [place] [address] [place] [address] Electrocardiograph Report Signed Patient: Eduarda Williamson MR#: [id number] : 1990 Acct:[id number] Age/Sex: 32 / M ADM Date: 04/08/23 Loc: ER Room: Type: [facility] ER Attending Dr: Ordering Provider: Leonides [...] sinus rhythm Confirmed by Leonides WALKER DO ([id number]) on 04/08/2023 4:53:54 PM Referred By: Electronically Signed By:Leonides WALKER DO Transcribed By: MUS Signed By Leonides Walker DO 0 04/08/23 1653 [facility] ED Provider Noteson 04-08-19 Rubber Roller Grinder Operator Authentication Interface Message Text -- Attestation signed [...] Patient origin: Transfer from outside facility - [facility] The history is provided by the Patient and MLF. Eduarda Williamson is a 32 year old male presenting to the ED for fall from 30ft. Patient was working on [employer] when he fell and landed on his back on concrete, denies LOC. 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 MLF reports patient tachycardic, otherwise vss en route. 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 Anticoagulation/Antiplatel et use: denies [...] -------- ED COURSE [place] -------- 1656. BP: 143/127. HR: 103. SpO2: 94. [...] rec (more content not included)... Normal [facility] ED Triage Noteson 04-08-2023 Rubber Roller Grinder Operator Authentication Interface Message Text Prehospital Medications: TXA Dilaudid Zofran Normal [facility] Rubber Roller Grinder Operator Authentication Interface Message Text 32 y/o M fall off telephone pole aprox 30 ft. Transfer from [facility] Normal [facility] ETHANOL, SERUMon 04-08-2023 Ethanol [Mass/Vol] mg/dL Normal None Detected [facility] Comment on above: Performed By: #### C H8 #### [facility] [address] [place] [address], [phone] Ethanol [Mass/Vol] mg/dL None Detected mg/dL [facility] Eosin[facility] Auto (Bld) [#/Vo l]Ordered By: Leonides Walker on 04-08-2023 Eosinophils (Bld) [#/Vol] 0.1 10*3/uL 0.0-0.45 [facility] Eosinophils/100 WBC Auto (Bl d)Ordered By: Leonides Walker on 04-08-2023 Eosinophils/100 WBC (Bld) 1.2 % . [facility] Erythrocyte distribution wid th Auto (RBC) [Ratio]Ordered By: Leonides Walker on 04-08-2023 Erythrocyte distribution width (RBC) [Ratio] 13.8 % 12.0-14.8 [facility] Ethanol [Mass/volume] in Ser um or PlasmaOrdered By: Leonides Walker on 04-08-2023 Ethanol [Mass/Vol] mg/dL [facility] Ethanol [Mass/Vol] TNP [facility] Comment on above: Test not performed Ethyl Alcohol Profileon Ethanol [Mass/Vol] mg/dL Normal [facility] Comment on above: Performed By: #### P T, CBC, CK, CMP, PTT, ETOH, LIPASE #### [facility] [address] [place] [id number] [facility] Percent Ethanol Not performed Normal [facility] Comment on above: Result Comment: PERF ORMED BY: [facility] [address] [place] [address] PATHOLOGIST HEALTH PROMOTION MANAGER ZENY CURRIE M.D. Performed By: #### P T, CBC, CK, CMP, PTT, ETOH, LIPASE #### [facility] [address] [place] [id number] [facility] Fresh Frozen Plasmaon 2023 Fresh Frozen Plasma ISSUED 04/08/23 1548 Normal [facility] Globulin Calc (S) [Mass/Vol] Ordered By: Leonides Walker on 04-08-2023 Globulin (S) [Mass/Vol] 2.3 g/dL [facility] Glucose [Mass/volume] in Ser um or PlasmaOrdered By: Leonides Walker on 04-08-2023 Glucose [Mass/Vol] 95 mg/dL 70-100 [facility] Comment on above: ADA recommended refe rence rangeRandom Glucose Reference Range is dependent on time and content of last meal. Glucose of more than 200 mg/dL in a nonstressed, ambulatory subject supports the diagnosis of Diabetes Mellitus. H AND Matty 04-08-2023 Rubber Roller Grinder Operator Authentication Interface Message Text Man [facility] Department of Surgery Division of Trauma Surgery, Acute Care Surgery, Critical Care, and [place] TRAUMA SURGERY HISTORY AND PHYSICAL Eduarda Williamson [id number] BASIC INJURY INFORMATION: Level of activation: Category [...] in by EMS as a transfer from [facility] after a fall from height. Reports he [...] drug use Living status: Home Primary language: Indonesian Functional status: Independent Impairments: None Assistive Devices [...] miguel (more content not included)... Normal [facility] HEPATIC FUNCTION PANELon Albumin [Mass/Vol] 4.3 g/dL Normal 3.5-5.7 [facility] Comment on above: Order Comment: Note updated reference ranges. Performed By: #### C H8 #### [facility] [address] [place] [address], ALK 68 IU/L Normal 34-104 [facility] Comment on above: Order Comment: Note updated reference ranges. Performed By: #### C H8 #### [facility] [address] [place], [place], ALT [Catalytic activity/Vol] 70 U/L High 7-52 [facility] Comment on above: Order Comment: Note updated reference ranges. Performed By: #### C H8 #### [facility] [address] [place] [address], AST [Catalytic activity/Vol] 49 U/L High 13-39 The [facility] Comment on above: Order Comment: Note updated reference ranges. Performed By: #### C H8 #### [facility] [address] [place] [address], Bilirubin [Mass/Vol] 0.4 mg/dL Normal 0.3-1.0 [facility] Comment on above: Order Comment: Note updated reference ranges. Performed By: #### C H8 #### [facility] [address] [place] [address], Bilirubin.direct [Mass/Vol] 0.08 mg/dL Normal 0.03-0.18 [facility] Comment on above: Order Comment: Note updated reference ranges. Performed By: #### C H8 #### [facility] [address] [place] [address], Protein [Mass/Vol] 6.6 g/dL Normal 6.0-8.3 [facility] Comment on above: Order Comment: Note updated reference ranges. Performed By: #### C H8 #### [facility] [address] [place] [address], Albumin [Mass/Vol] 4.3 g/dL 3.5 - 5.7 g/dL [facility] ALP [Catalytic activity/Vol] 68 U/L [facility] ALT [Catalytic activity/Vol] 70 U/L High [facility] AST [Catalytic activity/Vol] 49 U/L High [facility] Bilirubin [Mass/Vol] 0.4 mg/dL 0.3 - 1 .0 mg/dL [facility] Bilirubin.direct [Mass/Vol] 0.08 mg/dL 0.03 - 0.18 mg/dL [facility] Interpretation and review of laboratory results Abnormal [facility] Protein [Mass/Vol] 6.6 g/dL 6.0 - 8.3 g/dL [facility] Note updated referen ce ranges. [facility] HIV 1 and 2 Ab and HIV 1 p24 Ag panel IAon 04-08-2023 HIV 1+2 Ab+HIV1 p24 Ag IA Ql Non-Reactive Non-Reacti ve [facility] Comment on above: No laboratory eviden ce for HIV Infection. Negative result does not rule out acute HIV infection. If acute HIV infection is suspected, recommend ordering an HIV-1 RNA quanitification test. Interpretation and review of laboratory results Normal [facility] HIV Information: [place] Rev. code 3701.243(E): This information has been [...] release of HIV test results or diagnoses. [facility] HIV1 HIV2 AGAB SCRNon 2023 HIV AG-AB SCREEN Non-Reactive Normal Non-Reacti ve [facility] Comment on above: Order Comment: HIV I nformation: ???[place] Rev. code 3701.243(E):This information has been disclosed [...] HIV-1 RNA quanitification test. Performed By: #### C H8 #### [facility] [address] [place] [address], [phone] Hematocrit Auto (Bld) [Volum e fraction]Ordered By: Leonides Walker on 04-08-2023 Hematocrit (Bld) [Volume fraction] 41.7 % 38.8-50.0 [facility] Hemoglobin [Mass/volume] in BloodOrdered By: Leonides Walker on 04-08-2023 Hemoglobin (Bld) [Mass/Vol] 13.9 g/dL 13.0-17.0 [facility] INR in Platelet poor plasma by Coagulation assayOrdered By: Leonides Walker on 04-08-2023 INR Coag (PPP) [Relative time] 0.9 {INR} [facility] Comment on above: INR Therapeutic Rang e [...] CR LACT 1.6 mmol/L Normal 0.5-1.6 [facility] Comment on above: Performed By: #### L ACT #### [facility] [address] [place] [address], LACTIC ACIDOrdered By: Thiago Landaverde on 04-08-2023 Interpretation and review of laboratory results Normal [facility] Lactate [Moles/Vol] 1.6 mmol/L 0.5 - 1. 6 mmol/L [facility] LIP[facility]on 04-08-2023 LIP 8 IU/L Normal <128 [facility] Comment on above: Performed By: #### C H8 #### [facility] [address] [place] [address], Lipase [Catalytic activity/Vol] 8 U/L [facility] - Blood bankon ABO and Rh group Nom (Bld) Blood group O Rh(D) positive [facility] LeukoReduced RBCon LeukoReduced RBC NOT AVAILABLE Normal [facility] Leukocyte Reduced RBCon Leukocyte Reduced RBC ASSIGNED Normal [facility] Comment on above: Result Comment: PERF ORMED BY: [facility] [address] [place] [address] PATHOLOGIST HEALTH PROMOTION MANAGER ZENY CURRIE M.D. Leukocytes [#/volume] correc sánchez for nucleated erythrocytes in Blood by Automated counOrdered By: Leonides Walker on 04-08-2023 WBC corrected for nucl RBC Auto (Bld) [#/Vol] 10.7 10*3/uL 4.1-10.5 [facility] Lipaseon 04-08-2023 Lipase [Catalytic activity/Vol] 16.0 U/L Normal 11.0-82.0 [facility] Comment on above: Result Comment: PERF ORMED BY: [facility] [address] [place] [address] PATHOLOGIST HEALTH PROMOTION MANAGER ZENY CURRIE M.D. Performed By: #### P T, CBC, CK, CMP, PTT, ETOH, LIPASE #### [facility] [address] Lipase [Enzymatic activity/v olume] in Serum or PlasmaOrdered By: Leonides Walker on 04-08-2023 Lipase [Catalytic activity/Vol] 16.0 U/L 11.0-82.0 [facility] Lymphocytes Auto (Bld) [#/Vo l]Ordered By: Leonides Walker on 04-08-2023 Lymphocytes (Bld) [#/Vol] 3.9 10*3/uL 1.00-4.8 [facility] Lymphocytes/100 WBC Auto (Bl d)Ordered By: Leonides Walker on 04-08-2023 Lymphocytes/100 WBC (Bld) 36.0 % . [facility] MCH Auto (RBC) [Entitic mass ]Ordered By: Leonides Walker on 04-08-2023 MCH (RBC) [Entitic mass] 28.6 pg 27.5-35.2 [facility] MCHC Auto (RBC) [Mass/Vol]Or dered By: Leonides Walker on 04-08-2023 MCHC (RBC) [Mass/Vol] 33.4 g/dL 32.5-35.6 [facility] MCV Auto (RBC) [Entitic vol] Ordered By: Leonides Wlaker on 04-08-2023 MCV (RBC) [Entitic vol] 85.5 fL 83.5-101 [facility] Monocyte distribution width [Entitic volume] in Blood by AutomatedOrdered By: Leonides Walker on 04-08-2023 Monocyte distribution width Auto (Bld) [Entitic vol] 16.89 % 0.00-20.00 [facility] Monocytes Auto (Bld) [#/Vol] Ordered By: Leonides Walker on 04-08-2023 Monocytes (Bld) [#/Vol] 0.7 10*3/uL 0.0-0.8 [facility] Monocytes/100 WBC Auto (Bld) Ordered By: Leonides Walker on 04-08-2023 Monocytes/100 WBC (Bld) 6.9 % . [facility] Neutrophils Auto (Bld) [#/Vo l]Ordered By: Leonides Walker on 04-08-2023 Neutrophils (Bld) [#/Vol] 5.8 10*3/uL 1.8-7.7 [facility] Neutrophils/100 WBC Auto (Bl d)Ordered By: Leonides Walker on 04-08-2023 Neutrophils/100 WBC (Bld) 54.4 % . [facility] No Panel Informationon 04-08 Radiology Study observation (narrative) [facility] Interpretation and review of laboratory results Normal [facility] Interpretation and review of laboratory results Normal [facility] Radiology Study observation (narrative) [facility] No Panel InformationOrdered By: Leonides Walker on 04-08-2023 Estimated GFR (CKD-EPI) > 60.0 mL/Min [facility] Creatinine Clearance (Chem 152.91 [facility] Nucleated erythrocytes [Pres ence] in Blood by Automated countOrdered By: Leonides Walker on 04-08-2023 Nucleated RBC Auto Ql (Bld) 0.1 /100{WBC} 0-0.5 [facility] Opiates [Presence] in Urine by Screen methodOrdered By: Leonides Walker on 04-08-2023 Opiates Screen Ql (U) Positive Negative [facility] PARTIAL THROMBOPLASTIN TIMEo n 04-08-2023 aPTT Coag (Bld) [Time] 26 s Normal 25-37 Th e [facility] Comment on above: Performed By: #### C H8 #### [facility] [address] [place] [address], [phone] aPTT Coag (Bld) [Time] 26 s [facility] PROTHROMBIN TIME AND INRon 0 04-08-2023 INR Coag (PPP) [Relative time] 0.94 {INR} Normal 0.90-1.10 [facility] Comment on above: Performed By: #### C H8 #### [facility] [address] [place], [place], PT Coag (PPP) [Time] 10.5 s Normal 9.7-12.9 [facility] Comment on above: Performed By: #### C H8 #### [facility] [address] [place], [place], INR Coag (PPP) [Relative time] 0.94 {INR} 0.90 - 1.10 [facility] PT Coag (PPP) [Time] 10.5 [facility] Partial Thromboplastin Timeo n 04-08-2023 aPTT Coag (Bld) [Time] 27.4 s Normal 25.1-36.5 [facility] Comment on above: Result Comment: A he matocrit value greater than 55% may lead to inaccurate results in coagulation testing. Patients having hematocrit values >55% require a special collection tube for coagulation studies. Please contact the laboratory at [phone] for redraw instructions. PERFORMED BY: [place] [address] PATHOLOGIST HEALTH PROMOTION MANAGER ZENY CURRIE M.D. Performed By: #### P T, CBC, CK, CMP, PTT, ETOH, LIPASE #### [facility] [address] [place] [address] Phencyclidine Screen Ql (U)O rdered By: Leonides Walker on 04-08-2023 Phencyclidine Ql (U) Negative Negative [facility] Platelet mean volume Auto (B ld) [Entitic vol]Ordered By: Leonides Walker on 04-08-2023 Platelet mean volume (Bld) [Entitic vol] 7.5 fL 6.6-10.1 [facility] Platelets Auto (Bld) [#/Vol] Ordered By: Leonides Walker on 04-08-2023 Platelets (Bld) [#/Vol] 270 10*3/uL 150-450 [facility] Potassium [Moles/volume] in Serum or PlasmaOrdered By: Leonides Walker on 04-08-2023 Potassium [Moles/Vol] 3.9 mmol/L 3.5-5.1 [facility] Progress Noteson 04-08-2023 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 INJURIES: 1. Stable 2.3 x 2.2 cm [...] for injury Kathryn Lee MD Normal [facility] Rubber Roller Grinder Operator Authentication Interface Message Text CAT 2 Pt is a 32yo M presenting to ED via [employer] as transfer from [facility] s/p fall 30ft from ladder at work, L ulnar fracture, -thinners, -LOC. 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 Pt denies LOC. Pt was brought to [facility], where he was diagnosed with small R pneumothorax and L ulnar fracture. SW called pt's mother Lacho Williamson [phone] to provide update on pt status. Lacho is on the way to ED and will be visiting shortly. PLAN: Pending. RONALDO PenalozaW, MARZIPAN MOLDER, MA ED Guest Experience Manager Normal [facility] Protein [Mass/volume] in Ser um or PlasmaOrdered By: Leonides Walker on 04-08-2023 Protein [Mass/Vol] 6.5 g/dL 6.4-8.9 [facility] Prothrombin Time INRon 04-08 INR Coag (PPP) [Relative time] 0.9 {INR} Normal [facility] Comment on above: Result Comment: INR Therapeutic [...] CBC, CK, CMP, PTT, ETOH, LIPASE #### [facility] [address] PT Coag (PPP) [Time] 10.6 s Normal 9.0-12.9 [facility] Comment on above: Result Comment: A he matocrit value greater than 55% may lead to inaccurate results in coagulation testing. Patients having hematocrit values >55% require a special collection tube for coagulation studies. Please contact the laboratory at [phone] for redraw instructions. Performed By: #### P T, CBC, CK, CMP, PTT, ETOH, LIPASE #### [facility] [address] Prothrombin time (PT)Ordered By: Leonides Walker on 04-08-2023 PT Coag (PPP) [Time] 10.6 s 9.0-12.9 [facility] Comment on above: A hematocrit value g reater than 55% may lead to inaccurate results in coagulation testing. Patients having hematocrit values >55% require a special collection tube for coagulation studies. Please contact the laboratory at [phone] for redraw instructions. RBC Auto (Bld) [#/Vol]Ordere d By: Leonides Walker on 04-08-2023 RBC (Bld) [#/Vol] 4.88 10*6/uL 3.90-5.60 [facility] Serum or plasma albumin/glob ulin mass ratioOrdered By: Leonides Walker on 04-08-2023 Albumin/Globulin [Mass ratio] 1.8 {ratio} [facility] Serum or plasma anion gap de terminationOrdered By: Leonides Walker on 04-08-2023 Anion gap [Moles/Vol] 14.7 mmol/L 6.0-15.0 [facility] Sodium [Moles/volume] in Ser um or PlasmaOrdered By: Leonides Walker on 04-08-2023 Sodium [Moles/Vol] 138 mmol/L 136-145 [facility] TYPE AND SCREENon 04-08-2023 ABO and Rh group Nom (Bld) Blood group O Rh(D) positive Normal [facility] Comment on above: Performed By: #### C H8 #### [facility] [address] [place] [address], ABO and Rh group Nom (Bld) No Previous Results Normal [facility] Comment on above: Performed By: #### C H8 #### [facility] [address] [place] [address], ABSC INT Negative Normal [facility] Comment on above: Performed By: #### C H8 #### [facility] [address] [place] [address], [phone] ABO and Rh group Nom (Bld) Blood group O Rh(D) positive [facility] ABO and Rh group Nom (Bld) No Previous Results [facility] Blood group antibody screen Ql Negative [facility] Screen[facility] 04-08-2023 ABO and Rh group Nom (Bld) Blood group O Rh(D) positive Normal [facility] Comment on above: Result Comment: PERF ORMED BY: [facility] [address] [place] [address] PATHOLOGIST HEALTH PROMOTION MANAGER ZENY CURRIE M.D. Urea nitrogen [Mass/volume] in Serum or PlasmaOrdered By: Leonides Walker on 04-08-2023 Urea nitrogen [Mass/Vol] 13 mg/dL 7-25 [facility] WBC Auto (Bld) [#/Vol]Ordere d By: Leonides Walker on 04-08-2023 WBC (Bld) [#/Vol] 10.7 10*3/uL 4.1-10.5 [facility] XR CHEST AP OR PA 1 VIEWon [...] cardiopulmonary abnormality identified. MACRO: None Normal [facility] XR Chest Single viewon 04-08 EXAMINATION: [...] No acute cardiopulmonary abnormality identified. MACRO: None [employer] [facility] XR ELBOW LEFT MINIMUM 3 VIEW Son [...] body. Left elbow MACRO: None Normal [facility] XR Elbow - left Viewson EXAMINATION: [...] height ASSOCIATED DIAGNOSIS: ORDERING PROVIDER: ADALI HIDALGO TECHNOLOGISTS NOTE: COMPARISON: None IMPRESSION: Partially visualized comminuted radial shaft fracture, dedicated forearm radiographs are recommended. No significant joint effusion. The joint spaces are maintained. There is no radiopaque foreign body. Left elbow MACRO: None [facility] XR WRIST LEFT MINIMUM 3 VIEW Son 04-08-2023 XR WRIST LEFT MINIMUM 3 VIEWS EXAMINATION: XR WRIST LEFT MINIMUM 3 VIEWSPRO/LT 04/08/2023 06:51 PM CLINICAL HISTORY: fall from height ASSOCIATED DIAGNOSIS: ORDERING PROVIDER: ADALI HIDALGO TECHNOLOGISTS NOTE: COMPARISON: None IMPRESSION: No acute left wrist fracture or dislocation is identified. The joint spaces are maintained. There is no radiopaque foreign body. Left wrist MACRO: None Normal [facility] XR Wrist - left 3 Viewson [...] height ASSOCIATED DIAGNOSIS: ORDERING PROVIDER: ADALI HIDALGO TECHNOLOGISTS NOTE: COMPARISON: None IMPRESSION: No acute left wrist fracture or dislocation is identified. The joint spaces are maintained. There is no radiopaque foreign body. Left wrist MACRO: None [facility] XR Wrist - left 3 ViewsOrder ed By: Michele Joseph on 04-08-2023 [employer] Work Phone: XR femur RT 2V*on 04-08-2023 XR femur RT 2V* [facility] [address] [address] XRay Report Signed Patient: Eduarda Williamson MR#: [id number] : 1990 Acct:[id number] Age/Sex: 32 / M ADM Date: 04/08/23 Loc: ER Room: Type: [facility] ER Attending Dr: Copies to: Leonides [...] Naga Orlando M.D.04/08/2023 3:35 PM Dictation Location: [place] [address] Transcribed By: [facility] 04/08/23 1535 Dictated By: Naga Orlando II, MD 04/08/23 1534 Signed By: 04/08/23 1535 Normal [facility] XR forearm LT 2V*on 04-08-19 XR forearm LT 2V* [address] [address] XRay Report Signed Patient: Eduarda Williamson MR#: [id number] : 1990 Acct:[id number] Age/Sex: 32 / M ADM Date: 04/08/23 Loc: ER Room: Type: [facility] ER Attending Dr: Copies to: Leonides [...] Naga Orlando M.D.04/08/2023 4:17 PM Dictation Location: [place] [address] Transcribed By: AMADOR 04/08/23 1617 Dictated By: Naga Orlando II, MD 04/08/23 1615 Signed By: 04/08/23 1617 Normal [facility] XR hip RT min 2V(w/wo pelvis )*on 04-08-2023 XR hip RT min 2V(w/wo pelvis)* [facility] [place] [address] XRay Report Signed Patient: Eduarda Williamson MR#: [id number] : 1990 Acct:[id number] Age/Sex: 32 / M ADM Date: 04/08/23 Loc: ER Room: Type: [facility] ER Attending Dr: Copies to: Leonides [...] Naga Orlando M.D.04/08/2023 3:44 PM Dictation Location: [place] [address] Transcribed By: AMADOR 04/08/23 1544 Dictated By: Naga Orlando II, MD 04/08/23 154 Signed By: 04/08/23 154 [facility] Coding Summary.on 11-13-2020 Coding Summary. CD:[id number] Gh0bWw +PGhlYWQ+QZ5OBPMfJ15ibIEah O5WC3zDVY4BWOZKYGKQVB7XIY5 elZS9APacT0MgmlEg TqnnkMChBF60ECp1XSV9zCopKF lakA1mxJNuG4k8GwAdSH06mP44 KYdmQGWkHiB4MsRrancciUMe A6lfCqKvlOSmQdu+PHRhYmxlIH iuJARaYUylHZUvClExbLmxAE4d Wo3xLJZaRJGubSkyzPExMtDs v6rjQOIyXIiqWZ0rvNfwF7VpwB A8GXEkj5q7Bs08oLS+PHRkIHN0 lHzmAPeil574HnLrs3ylIBV0 dGKnTPtzRDB3Q69bs5B1QEDiPO IlTZC2wAU5fF1crMrykxncG1Fu fHFsWoT8BAZ8zMDxiB0fgAug sxsfsB2qCgc+V20MSI5GEEFIXR 9DHzk0N9OjNpxezRR+HP07DFNx LG32pXQixBXul9vfsZn7OvZy QTKhHDR7tUmdKKwwu8TkEWQtB5 7qnGUbe3C4PRGfcSporMBiDmUt iPJ3rC1nUKoxvhprj5yjkhec Nbbyn7pock03aT20F04eOBvwGG UiYUY4JTKdFWSovUjdwl8nqC4k Ii8+HIrmn0gtp1vmtTz4FuIh ZQIfdfGzcMrqSHA9q7SaUx81S8 BvaXxfk2SaBug7ed60yZEvf3K4 uTI0HLfkARKckR5iJXrfJzJ7 BEGfNsTqlQ72sIChKZcwGq8flV ofkLusKP5wQXDiyiwoZCLcqX1c RSJkqJKpmWywJM9xBQSpzrqb x464WvTeYSU0XIFiiOBmQ4XaiX 3jXgKfJYWkUJFxU4YgnZSuCQwm H823GOmhXaV2GXRwjwYsR1Xn DBQwlPggMpV0f9M8Jj0Ye9Gjfr mxTGL6XSdgXBC3GhW6ZrTzDsD0 H2BuNxb4OSEmyXjzNV5pP6Wc TZXkinjccfnyvVD5ZSMkKZIepR 50fBKsVKnuGx9lp3D9r125SHJr EAHnaE86Nf3qdAjvWXUxcWCJ mL2hadgxe6crhouoPjFcBUSnQP x2OZt1QIHpfGiuKbJpFEY7OkQ7 DFK2nLHqkX7jfNanphtpmU3j Oyc+D85cbE9rMHP8XRO7nsvdWD KvgdPnYQ25OI34N5QxUpeejQPf bGU+OFIcsqOdkVgrID4hYzQl o1tph1SpZFmwM7TkFKNgHHqwXk o8MDTgEZF4jIK5kK0yIRHhJQtj z5M4eFP2P9ZlmdJedi8wq1wu DKKzAWlhX79hqMWme5K4CAQrzV H8ATQfxErbDlReiA64Coc+PGNv pZtyx4YfPreqw7snu4wuoDm6 IaRyZYGfysGojYxcBLH3j1SpOe 27U53hAJsiZVJpKKCgXNQnYJHh pCyskx7lbP7bQs1+PGNvbCB3 kQS4vV3yUKFbNpK9JSubE339Et FsfLJxQllnv5dvp6gpwUs3JhIt VSAakpJoxQhpYUA3e9UxBk04 J89wMRijWLKlMPXoJURgJZKzaM ykrc7olJ3tWa8+WN8ar1tlmv55 iQ49cQK+CSWdSKF4lJxkRJyl RQBtwY7oYHqxFpU7ZLAkZhNwkQ 86rVEkIZpnJu6ypGubeNkgQL0t OWJnxwvcw485OeCos1boFABm wRYeFMbdAIH3T72ve5R7SWXcBO MxBPP8cGP7nP6eiLgthuqdrTYb uSpjnnDcmRwlLAboOXvxK875 IHRvcDsnPlBhdGllbnQgTmFtZT c5B3BaMuu4KHPqkLsjWH7chXPx TBnfSm4khLrcdImqNZ4yUYAw wqptu680OcFmg6wjGUGotAPmYX tmEUM4M06vn2A9WAQkHHPsCNI3 sXK3kF2daLzsmuzipSKetFbd rxKarHbkPYddLAwiT749YRXifH kdExMhogPxXRRsuWW2SH27EZ91 rIQik1W8gUK3C0ZzDYJapizo vveneIG5KPKuWODaqG41Hs8ojD esKp2nIIUsJRZ4UNXhoGSxD7Ue gZ7fJnCdSTPdOTWuP3OgoJOj BQymG729NLuwBcH4WJNhctDyT3 DyEGGwgEflFwK7r8R7Xw1TQ9Z4 IX08QP56lDTzu9B4sET6D2Mi IOTkopzumgsikMG5BSJfIVNmmT 82Ux3txCfzIp1hPRSvGKA6RATx kMJxN1HofZ6yZuGhTOWpUZFj E2OocTSkQWcwW119GOaqCbL7PZ MvcfKiN3OkAMEycJcmNpE9z9G8 Hx6OQEq2NK43WR94iBQix3J2 uPH6C9SpLSRudxcmohyllTY9OY OoODTocM50Hn0jmNrrYh1pRICv BYN0VPZnfPVpL0NugB3iNmAb EQCbIMObJ2VapLWnKIuzV851ZO hmTgK3YSJwdpYrS3GfISSmpIdg MyO3t9Q0Bx2MFGUdSH09MVA8 xEN9IK23XH94L1NnJsyunBMclL U+PHRhYmxlIHdpZHRoPScxMDAl WjZrgOplYK0fKy7vJRJkZCQp hApdpSPjCzSiv5tdLHPzVVjvWC 6ywJugO7SfvQA6SMWxg5j5Aa17 A04dN2NfsCR+ATXguHM2jPG3 pD1zZmOxYqB9MNzxB556SlVilE FlCodyd0keh6ebmZh7YgV1LURn hiGroJamLDB7j2SaCx19M96j IHdpZHRoPSIxNSUiIHZhbGlnbj 9tcF6wOi7+CRQgoNW7uNW3iL8h RsOyIaY3CEflU320QrJsuHKp Ormsk2wpa3cydGb8IkSmTBUsjd VeeEgaPVB3a6OuDu20O7UemYia o7TcCcs4zj39nJCgn2T5mYU5 K8AnTGSibtkypBKxqSdsWO0iLP UufhuiQKDvdH7bMMJtQ3v3IjCi ToQ9ULppM5GxntD6FJMwiQJh MPzvEBM2R04id4K3YYCjUISxLJ X8uDC8aI8viOlyvvkgoFFomAte rbAovGwkUEpzWUywC794TTVb pNhdKSVezZ8pCSNavAKrmCisOF 5fDGDywlxaLywRFIfET3srCHgQ ATXRYSu5B5XwQdj3DOPujXft UV4rfUIlIShpOa2gcCgdsNhaPC 7nQVLheofqOEOfbM2aIGJlhNXy iIrqPC8eWSLjosdhe366IpSh XWI4NYGimNIgK1NvbH2qPkPcNQ DdUZPkS6BbfZYrUBvxN925IIie NiI8FKPpzkRwI0MaBOTjsQik JsI8t9H3Oa7wWK3vHC5rVJvpUZ 54EK94jUUpx7W0eVG9P8YcFLHa cvyuuttejCH8SVFeFWHroN21 jTZyLAtvBz3cs0A7p920FCXgCW UriA59Dz4niHifTSAgwEBThX3w ezykd3egprtxSfDbJYUzMBq4 RYm4WWNfmFesWpIkXGC8JrE7VZ Z1eWGcaI2btAseodikcS8sFas+ EylwJKXhtaK3S3BpEnf8KLKq qAtxTT6kqUNrMJmoZc9ksMpzlE gfCA9hZSUxkyteNNWasY5xJTNd cFIwxDbpUW4jCYSepucbq273 RkMpGTH7CWHinYSqY3XqxR3uYy KoITNyCQRsC0IzoONaVNvsW131 DIrlDkR1JGVieuKnT0WrLLRz sTfgGwB9i3I7Bj6HHMbvUM56WG 20tEUkl1Z0uUM6S0CoZHOopxqi pgvzpPS9MSYnWGHsuR29uAOy SGeoUk9zu8T7x399TMHeNVSgnQ 44Ta4ybMfcPWQnmGZXqI3xopvb g3qnvbyqQxKhMYSvZIe4HVk7 DXFguDneKyAxHYC1TjW1HOD4qS RofS9zdPpmerwhyI8mLna+RW1l dszuufI5MR41FR40J8BsXjpa dGFibGU+PHRhYmxlIHdpZHRoPS xrHNJbDcRstVltBO2dLf7zJADz NYEjoQzntHZxObGdd3auGEDf RYeqNI6suShmA9OuoRE3FZPep8 e7Kb23Z70pI5NhfNY+PGNvbCB3 gDJ8sH7oDlAzLzO9BUelV213 MtWpuQHoHgmfx2wtm7esbJe3Kn MqNBKorsEuoSxuXJN4t8XuTy83 E19lMYatYMRbYVEoTEDuBPEm pKoruu2atT4rWj9+VJRrsRN3xW K8jQ9tUuYcHcZ3COioS457AfCw fFXpSoeuF94zX3GzhPQ+PHRy Vsc6ELJvvTuvUT0uoGDdXOwvXz 4wDOV7GrEpLhOxSNkoU3BxVEWl ssznbjdbzZF6LGSiZYKgrX40 Qc0abIsbMn1nPZWzUFU6GMDauV FbK9ZrzZ1qJmRnJQAzNOOlX4Tf cFHnITcfG047DCtiQvX6BHEb kxRxL4UgQTSomFjlDyO7d0Y3Ml 6GrWyleFCwOJ9yZuJkRZy8U4Hi Ngt1UIJcpRhaHY5yjIEiSFih Oe4qiRhwsJbjGB7jTFEwaagee6 59EkCvf6kiEECwdCTcBPvxTCU5 A02jb3U3DKIbIMBrHTH5aCD9 vT3gtGajwcxekAOzoVqmorQkbK flTGptZCqvR347UTXcjVcaKoIA Mmn8B4RhTav4PSYksKdzVV8i yGWmASouXe9ynKgerQhnFF6zJT Xspcszp136RvPmo8szUAXnhDJh NAkzSGF8S33wt8W7AZDrKPAl UQH0wRR5xS6rpUdbbcxqdSHrmT kriwCqpSlhLHliRKyzH602DIPe vJzkAc2PRxz4M3SbKyg7VULk hGsgWV7meGPfMDjiZn0kjKbdgV xiQX2wZADjeijda720JjThs3cr JYVduVHjBApuMBU7T96cm9R5 SLAyUMWbIWN0pEO8lP5ceIqgik ogbGVmdDsgdmVydGljYWwtYWxp Q304UGGulHdcVdFdiREmFwpx dGQ+DD75jt29W7LmJrliAbj6HU VpKAJ3eUK2kF7fXKEoVNkea7U2 bHD9K7MgjaFhxr1dz6eaYLQn [employer] (more content not included)... Normal [facility] Discharge Instructionson Discharge Instructions [id number] Normal [facility] ED Note-Physicianon 11-10-19 ED Note-Physician Basic [...] Chronic sinusitis, unspecified) Orders: Rapid COVID Antigen ([place]) Disposition Plan Patient Discharge Condition Disposition: Discharged home Condition: Improved and stable Counseled: Patient and/or family were counseled to workup, results, treatment plan and follow-up recommendations Discharge Prescription List Prescriptions No active prescription medications Follow-up With When Contact Information Tito Whitney In 3 days 11/11/[address] Business (1) Additional Instructions: Patient Education COVID-19 Attestation Patient seen and evaluated by the physician retail assistant. Attending physician was present in the emergency department and supervised care. This report was transcribed using voice recognition software. Every effort was made to ensure accuracy, however, inadvertently computerized scarfer operator mistakes may be present. Appropriate healthcare PPE [...] Diagnostic Results No qualifying data available. Normal [facility] Comment on above: Result Comment: Elec tronically Signed By: Rinku Ruiz PA-C\.br\Date and Time Signed: 09/10/21 19:11 EDT\.br\Electronically Co-Signed By: Virgilio Song DO\.kellie\Date and Time Co-Signed: 11/08/20 22:00 EDT Consent for Treatmenton 10-30 Consent for Treatment [id number]:[id number] Normal [facility] ED Clinical Summaryon 2020 ED Clinical Summary (Inserted Image. Natalee ble to display) [place] [id number] ED Clinical Summary Person Information Name: [facility] Age[facility] 29 Years : 1990 Sex: Male Language: Indonesian PCP: Tito Whitney MD Marital Status: Phone: [phone] Visit Id: Visit Reason: Cough; Sinus Pain/Congestion; [...] 11/08/2020 19:16:14 11/08/2020 19:16:14 11/08/2020 19:16:14 ADDRESS: [address] [place] [phone] PHYS DOC NOTES: MEDICAL INFORMATION: Prescriptions Given: PATIENT EDUCATION INFORMATION: Instructions: COVID-19 Follow up: With: Address: When: Tito Whitney [address] [place] [address], [facility] [place] [id number] Business (1) In 3 days 11/11/2020 DIAGNOSIS: Sinusitis Normal [facility] ED Patient Summaryon 021 ED Patient Summary (Inserted Image. Natalee ble to display) [place] [id number] Patient Discharge Instructions Person Information Name: EDUARDA WILLIAMSON Age: 29 Years Arrival Date: 11/08/2020 18:37:36 Discharge Diagnosis: Sinusitis Primary Care Physician: Tito Whitney MD Provider Information Primary Provider: Virgilio Song DO Advanced Checkering Machine Operator:Rinku Ruiz PA-C The exam and treatment you received in the Emergency Department were for an urgent problem and are not intended as complete care. It is important that you follow up with a doctor, nurse practitioner, or physician?s retail assistant for ongoing care. If your symptoms [...] Follow-up Instructions: With: Address: When: Tito Whitney [facility] [facility], [place] [address] Business (1) In 3 days 11/11/2020 In the event that this physician does not participate in your insurance network, please consult with your insurance company to find a nearby participating provider. Patient Education Materials: COVID-19 A MESSAGE TO ALL PATIENTS REGARDING OPIOIDS PRESCRIPTION OPIOIDS: WHAT YOU NEED TO KNOW Prescription opioids can be used to help relieve vnbuyqeg-pj-uwzbcd pain and are often prescribed following a [...] be struggling with addiction, tell your health health care / medical job titles and ask for guidance or call [facility] National Helpline at 2-482-661-TMVW. g Source: Department of Health (more content not included)... Normal [facility] Rapid COVID Antigen ([facility])on 11-08-2020 Rapid COV Int NEG Ctl Pass Normal [facility] Comment on above: Performed By: #### 2 [id number] #### [facility] [address] [place] [address] Rapid COV Int POS Ctl Pass Normal [facility] Comment on above: Performed By: #### 2 [id number] #### [facility] [address] [place] [address] SARS-CoV-2 (COVID-19) RNA SYDNEY+probe Ql (Unsp spec) Detected Abnormal Not Detected [facility] Comment on above: Result Comment: Resu lts Called To Chandana Gonzales/Er By ALL And Read Back For Confirmation On 11/08/2020 19:31:35 EDT Faxed to Barry 11/08/2020 19:31:40 EDT. The [employer] Veritor? System for Rapid Detection of SARS-CoV-2 [...] For in vitro diagnostic use. In the [facility], only for use under an Emergency Use [...] other viruses or pathogens; and, in the [facility], this test is only authorized for the duration of the declaration that circumstances exist justifying the authorization of emergency use of in vitro diagnostics for detection and/or diagnosis of the virus that causes COVID-19 under Section 564(b)(1) of the Act, 21 U.S.C. ? 360bbb-3(b)(1), unless the authorization is terminated or revoked sooner. Performed By: #### 2 [id number] #### [facility] [address] [place] [id number] Employed in [facility] NO [facility] Comment on above: Performed By: #### 2 [id number] #### [facility] [address] [place] [address] First Test Unknown Normal [facility] Comment on above: Performed By: #### 2 [id number] #### [facility] [address] [place] [address] Hospitalized? Unknown Normal [facility] Comment on above: Performed By: #### 2 [id number] #### [facility] [address] [place] [address] ICU NO Normal [facility] Comment on above: Performed By: #### 2 [id number] #### [facility] [address] [place] [address] ? NO Normal [facility] Comment on above: Performed By: #### 2 [id number] #### [facility] [address] [place] [address] Resides in a [facility] Care Setting NO Normal [facility] Comment on above: Performed By: #### 2 [id number] #### [facility] [address] [place] [address] Symptomatic as defined by CDC YES Normal [facility] Comment on above: Performed By: #### 2 [id number] #### [facility] [address] [place] [address] Vital Signs Date Time Vital Sign Value Performing Clinician Facility 04-14-2023 16:36-0500 Diastolic blood pressure 76 mm[Hg] Carmela Guevara MD Work Phone: [facility] 04-14-2023 16:36-0500 Heart rate 90 /min Carmela Guevara MD Work Phone: [facility] 04-14-2023 16:36-0500 Respiratory rate 16 /min Carmela Guevara MD Work Phone: [facility] 04-14-2023 16:36-0500 SaO2% (BldA) [Mass fraction] 100 % Carmela Guevara MD Work Phone: [facility] 04-14-2023 16:36-0500 Systolic blood pressure 129 mm[Hg] Carmela Guevara MD Work Phone: [facility] 04-14-2023 16:15-0500 Body temperature 97.7 [degF] Carmela Guevara MD Work Phone: [facility] 04-14-2023 12:06-0500 Body height 188 cm Carmela Guevara MD Work Phone: [facility] 04-14-2023 12:06-0500 Body mass index (BMI) [Ratio] 29.4 kg/m2 Carmela Guevara MD Work Phone: [facility] 04-14-2023 12:06-0500 Body weight 103.87 kg Carmela Guevara MD Work Phone: [facility] 04-11-2023 05:09-0500 Body temperature 97.7 [degF] Jarrod Chandler MD Work Phone: [facility] 04-11-2023 05:09-0500 Diastolic blood pressure 76 mm[Hg] Jarord Chandler MD Work Phone: [facility] 04-11-2023 05:09-0500 Heart rate 76 /min Jarrod Chandler MD Work Phone: [facility] 04-11-2023 05:09-0500 Respiratory rate 15 /min Jarrod Chandler MD Work Phone: [facility] 04-11-2023 05:09-0500 SaO2% (BldA) [Mass fraction] 95 % Jarrod Chandler MD Work Phone: [facility] 04-11-2023 05:09-0500 Systolic blood pressure 136 mm[Hg] Jarrod Chandler MD Work Phone: [facility] 04-10-2023 23:08-0500 Heart rate 101 /min Jarrod Chandler MD Work Phone: [facility] 04-10-2023 10:00-0500 Body height 188 cm Jarrod Chandler MD Work Phone: [facility] 04-10-2023 10:00-0500 Body mass index (BMI) [Ratio] 29.44 kg/m2 Jarrod Chandler MD Work Phone: [facility] 04-10-2023 10:00-0500 Body weight 104.02 kg Jarrod Chandler MD Work Phone: [facility] 04-08-2023 16:00-0500 Diastolic blood pressure 94 mm[Hg] DO Leonides Keister Work Phone: [facility] 04-08-2023 16:00-0500 Heart rate 91 /min DO Leonides Keister Work Phone: [facility] 04-08-2023 16:00-0500 Respiratory rate 18 /min DO Leonides Keister Work Phone: [facility] 04-08-2023 16:00-0500 SaO2% (BldA) [Mass fraction] 99 % DO Leonidse Keister Work Phone: [facility] 04-08-2023 16:00-0500 Systolic blood pressure 150 mm[Hg] DO Leonides Keister Work Phone: [facility] 04-08-2023 15:34-0500 Body temperature 97.8 [degF] DO Leonieds Dewayneister Work Phone: [facility] 04-08-2023 14:26-0500 Body height 187.96 cm DO Leonides Keister Work Phone: [facility] 04-08-2023 14:26-0500 Body weight 104.4 kg DO Leonides Walker Work Phone: [facility] Encounters Encounter Date Encounter Type Care Provider Facility Start: 06-14-2023 End: 06-14-2023 ambulatory CARMELA GUEVARA Facility:[facility] Start: 06-14-2023 End: 06-15-2023 ambulatory [facility] PROVIDER Facility:[facility] Start: 06-14-2023 End: 06-14-2023 Subsequent hospital visit by physician Op Xray 1 [facility] Radiology Comment on above: Aftercare following surgery; Closed displaced comminuted fracture of shaft of left radius, initial encounter Start: 06-14-2023 End: 06-14-2023 Patient encounter procedure Carmela Guevara MD Work Phone: [facility] Comment on above: Closed displaced com minuted fracture of shaft of left radius, initial encounter (Primary Dx) Start: 04-29-2023 End: 04-29-2023 ambulatory UNKNOWN PROVIDER Facility:[facility] Start: 04-27-2023 ambulatory UNKNOWN PROVIDER Facili ty:[facility] Start: 04-27-2023 End: 04-28-2023 ambulatory UNKNOWN PROVIDER Facility:[facility] Start: 04-14-2023 End: 04-15-2023 ambulatory CARMELA GUEVARA Facility:[facility] Start: 04-14-2023 End: 04-14-2023 ambulatory CARMELA GUEVARA Facility:[facility] Start: 04-14-2023 Letter encounter Carmela Guevara MD Work Phone: [facility] Start: 04-14-2023 End: 04-14-2023 ambulatory CARMELA GUEVARA Facility:[facility] Start: 04-14-2023 End: 04-14-2023 Subsequent hospital visit by physician Carmela Guevara MD Work Phone: [facility] Comment on above: Post-op pain (Primar y Dx) Start: 04-10-2023 Evaluation and manag ement of inpatient YING HOLT Facility:[facility] Start: 04-09-2023 Admission to [facility] surgery center Carmela Guevara MD Work Phone: [facility] Start: 04-08-2023 End: 04-11-2023 Evaluation and management of inpatient Jarrod Chandler MD Work Phone: [facility] Comment on above: Mesenteric hematoma, initial encounter (Primary Dx); Fall from height of greater than 3 feet; Closed fracture of shaft of left radius, unspecified fracture morphology, initial encounter; Tachycardia, unspecified; Abnormal electrocardiogram (ECG) (EKG); Abnormal electrocardiogram (ECG) (EKG) Start: 04-08-2023 End: 04-08-2023 Emergency department patient visit Leonides Walker Facility:[facility] Start: 04-08-2023 End: 04-08-2023 E.D. Visit Jeniffer RIVAS [employer] Comment on above: Trauma/complex Medic al Situation Start: 04-08-2023 End: 04-08-2023 Emergency department patient visit DO Leonides Walker Work Phone: [facility] Work Phone: Start: 03-02-2023 End: 03-02-2023 ambulatory BOBY SOMMERS Not Available Procedures Date Procedure Procedure Detail Performing Clinician Start: 06-14-2023 Radex forearm 2 views A jenifer Guevara MD Work Phone: Start: 04-14-2023 Us guidance needle placement img s&i Laura Solano MD Work Phone: Start: 04-14-2023 Fluoroscopy up to 1 hour physician/qhp time Carmela Guevara MD Work Phone: Start: 04-11-2023 Assay of magnesium [place] jhonny Pineda MD Work Phone: Start: 04-10-2023 Assay of magnesium [place] johnny Pineda MD Work Phone: Start: 04-10-2023 Radex forearm 2 views M bárbara Renee MD Work Phone: Start: 04-09-2023 Assay of lactate Jacinto Haji MD Work Phone: Start: 04-09-2023 Blood count complete automated Luis Eduardo Buenrostro MD Work Phone: Start: 04-08-2023 Ecg routine ecg w/le ast 12 lds trcg only w/o i&r Abdelrahman Chance MD Work Phone: Start: 04-08-2023 Blood typing serologic abo Jarrod Chandler MD Work Phone: Start: 04-08-2023 Radex elbow complete minimum 3 views Adali Hidalgo MD Work Phone: Start: 04-08-2023 Radiologic exam ches t single view Abdelrahman Chance MD Work Phone: Start: 04-08-2023 Radiology Comparison study - date and time Kathryn Lee MD Work Phone: Start: 04-08-2023 Antibody screen [facility] Comment on above: Result Comment: PERF ORMED BY: [facility] [place] [address] PATHOLOGIST HEALTH PROMOTION MANAGER ZENY CURRIE M.D. Start: 04-08-2023 CT of [...] abdomen and pelvis with contrast DO Leonides Keister Work Phone: Start: 04-08-2023 CT cervical spine wi thout contrast DO Leonides Keister Work Phone: Start: 04-08-2023 CT of head without contrast DO Leonides Keister Work Phone: Start: 04-08-2023 CT of thorax with contrast DO Leonides Keister Work Phone: Start: 04-08-2023 Plain X-ray of left forearm DO Leonides Keister Work Phone: Start: 04-08-2023 Plain X-ray of right femur DO Leonides Keister Work Phone: Start: 04-08-2023 Plain X-ray of right hip DO Leonides Keister Work Phone: Plan of Treatment Date Care Activity Detail Author Start: 2042 Shingles (RZV) Vacci ne (1 of 2) Shingles (RZV) Vaccine (1 of 2) [facility] Start: 04-08-2033 Tetanus vaccination Tetanus (T d or Tdap) Booster [facility] Start: 06-14-2023 End: 06-13-2024 XR Radius and Ulna - left Views XR FOREARM LEFT 2 VIEWS Imaging Routine Closed displaced comminuted fracture of shaft of left radius, initial encounter Expected: 06/14/2023, Expires: 06/13/2024 [facility] Work Phone: Comment on above: Expected: 06/14/2023 , Expires: 06/13/2024 Start: 04-27-2023 End: 04-27-2023 Patient encounter procedure 04/27/2023 2:00 PM EST Office Visit [facility] [address] [address] Carmela Guevara MD [address] [place] [address] [place] [address] [facility] Start: 04-15-2023 End: 04-15-2023 Admission to same day surgery center 04/15/2023 12:02 PM EST - 04/15/2023 3:03 PM EST Surgery [facility] Main OR [address] [place] [address] Carmela Guevara MD [address] [place] [address] [place] [address] REDUCTION, OPEN, RADIUS [facility] Main OR Comment on above: REDUCTION, OPEN, RAD IUS Start: 04-15-2023 End: 04-15-2023 Evaluation and management of inpatient 04/15/2023 12:02 PM EST - 04/15/2023 3:03 PM EST Surgery [facility] Main OR [address] [place] [address] Carmela Guevara MD [address] [place] [address] [place] [address] REDUCTION, OPEN, RADIUS [facility] Comment on above: REDUCTION, OPEN, RAD IUS Start: 04-15-2023 End: 04-15-2023 REDUCTION, OPEN, RADIUS REDUCTION, OPEN, RADIUS Routine scheduled Closed displaced comminuted fracture of shaft of left radius, initial encounter 04/15/2023 12:02 PM EST [facility] Start: 04-14-2023 End: 04-14-2023 REDUCTION, OPEN, RADIUS REDUCTION, OPEN, RADIUS Routine scheduled Closed displaced comminuted fracture of shaft of left radius, initial encounter 04/14/2023 1:02 PM EST [facility] Start: 04-08-2023 [facility] Start: 10-30-2022 Influenza vaccination Influenza Vacc ine (#1) [facility] Start: 12-17-2019 HPV Vaccine (optiona l start 27-45 years) HPV Vaccine (optional start 27-45 years) [facility] Start: 12-17-2011 Hepatitis A (HAV) Vaccine (optional start 19+ years) Hepatitis A (HAV) Vaccine (optional start 19+ years) [facility] Start: 2010 Hepatitis C screening Hepatitis C An tibody [facility] Start: 2010 Tetanus + diphtheria + acellular pertussis vaccine (product) Tdap Booster [facility] Start: 06-16-1993 COVID-19 Vaccine (#1) COVID-19 Vacci ne (#1) [facility] Start: 1992 Hepatitis B vaccination Hepati tis B (HBV) Vaccine (1 of 3 - 3-dose series) [facility] Assay of magnesium [facility] STAT Daily [...] nued starting 04/09/2023, 3 completed Patient referral [facility] Work Phone: Immunizations Immunization Date Immunization Notes Care Provider Fa cility 04-08-2023 tetanus toxoid, redu tali diphtheria toxoid, and acellular pertussis vaccine, adsorbed DO Leonides Walker Work Phone: [facility] Payers Date Payer Category Payer Self-pay [id number] 2023 Unknown [id number] 2023 Unknown COMMERCIAL INSUR ANCE - OTHER COMMERCIAL INSURANCE OTHER [id number] 2023-Present [address] [place] [address] Indemnity [id number] 2023 Unknown [id number] 2023 Unknown [id number] 2023 Worker's Compensation 1.2.84 [id number] 2023 Unknown [id number] 1990 Unknown [id number] .1259 1990 Unknown [id number] 2.840.1.007852.3.579.2 .732 1990 Unknown [id number] 2.16840.1.525256.3.579.2 .732 1990 Unknown [id number] 2.16840.1.894768.3.579.2 .732 1992 Unknown [id number] 2.16840.1.135813.3.579.2 .732 1990 Unknown [id number] 2.16840.1.210994.3.579.2 .732 1990 Unknown [id number] 2.16.840.1.975879.3.579.2 .732 1990 Unknown [id number] 2.16.840.1.016639.3.579.2 .732 1990 Unknown [id number] 2.16.840.1.321675.3.579.2 .732 1990 Unknown [id number] 2.16.840.1.015771.3.579.2 .732 1990 Unknown [id number] 2.16.840.1.136566.3.579.2 .732 1990 Unknown [id number] 2.16.840.1.401843.3.579.2 .732 1990 Unknown [id number] 2.16.840.1.039116.3.579.2 .732 Unknown [id number] 2.16.840.1.505254.3.579.2 .531 Social History Date Type Detail Facility Tobacco smoking status [facility] Unknown if ever smoked [facility] Work Phone: Start: 1990 Sex Assigned At Male F [facility] Tobacco smoking status [facility] Tobacco smoking consumption unknown [facility] Start: 1990 Sex Assigned At Not on file [facility] Gender identity Not on file [facility] Medical Equipment Procedure Code Equipment Code Equipment Origin al Text Equipment Identifier Dates 3.5 X 16 Screw E [id number] - [id number] Start: 04-14-2023 Plate 9 Hole For earm [id number] - [id number] Start: 04-14-2023 Clinical Notes 11-08-2020 to 06-14-2023 Carmela Guevara MD - 06/14/2023 2:59 PM EDTBrief Operative Note - Jillian Read PA-C - 04/14/2023 1:33 PM ESTOP Note - Carmela Guevara MD - 04/14/2023 1:33 PM ESTDischarge InstructionsAttachments Note Date & Type Note Facility 06-14-2023 History of Present illness Narrative Hand Clinic Post-operative Notes Surgery(s) performed: Left radial shaft fracture DOS:04/14/2023 Post Op 2 months Subjective: N/t resolved intermittent wrist pain/ feels plate Objective: LEft forearm Wound: volar wound healed Edema: mostly Motion: full flexion/extension wrist Improved forearm rotation 80% contralateral Sensory: index and middle intact to LT; decreased to thumb Radiograph findings: L forearm XR: interval healing across fracture without loosening/failure of implants Assessment:(Z48.89) Aftercare following surgery (primary encounter diagnosis) Plan: Wean out of splint Progress strengthening Reviewed Xray [id number]-14 light duty left arm extend until August 13, 2023 X-rays on follow up: yes, L forearm Follow up: 6 weeks Carmela Guevara MD Hand and Upper Extremity Surgeon 06/14/23 documented in this encounter [facility] 04-27-2023 Note OCCUPATIONAL THERAPY HAND CLINIC EVALUATION [facility] case: authorization pending Visit #: 1 [...] for updated medication list. 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 Identification was verified by patient [...] continuing therapy closer to his home in [place], [place]. Pt would benefit from skilled OT to address problem list below. Prognosis for therapy: Good Problems include: Decreased Range of Motion, Decreased Strength, Edema, Pain, Unable to perform Full Work Tasks, Open Wound, and Lack of home program, healing structures. 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 OT f/u next week at [facility]. Interventions: AROM, AAROM, Tendon gliding exercises, Edema Control, Wound Care, Splinting, and Home program Plan of care discussed with patient and agreed upon. Risks and benefits of Occupational Therapy discussed with patient. Start Time: 15:52 Stop Time: 16:32 Total Treatment Minutes: 40 minutes Timed Code Treatments by Procedure: OT Therapeutic Procedures THERAPEUTIC EXERCISES (15 MIN) [[id number] (more content not included)... [facility] 04-14-2023 Note Peripheral Block Patient location [...] fractionated injection: yes No block complications [facility] 04-14-2023 Note Surgical Attestation : I have reviewed the patient's History and Physical Examination. I have personally seen and evaluated the patient, repeating ortez portions. There is no significant interval change. This injury occurred at work and is a [facility] claim. Surgery is still indicated. Yes Consent reviewed and signed by patient/family: Yes Operative site verified and marked: Yes Carmela Guevara MD 04/14/2023 11:51 AM [facility] 04-14-2023 Surgery Postoperative evaluation and management note Brief Operative Note BV OR 3 Eduarda Williamson 32 year old male Surgical Contact Serial Number: [id number] Preoperative Diagnosis: Pre-op Diagnosis * Closed displaced comminuted fracture of shaft of left radius, initial encounter [S52.352A] Postoperative Diagnosis: * Closed displaced comminuted fracture of shaft of left radius, initial encounter [S52.352A] Procedures: LEFT radial shaft open reduction internal fixation Surgeon(s): Surgeon(s): Carmela Guevara MD Staff: Scrub: Nathaly Gonzalez RN Wood Drilling Machine Operator Nurse: Lesvia Knight RN; Sandy Yuen RN; Bang Rao RN Physician Animal Humane Agent Supervisor: Jillian Read PA-C Pharmacist In Charge Owner: Boy Weir MD Anesthesia: LMA; local Anesthesiologist: Laura Solano MD TRANSPORT OPERATIONS INSPECTOR: Coreen Morris APRN-CRNA Taker Off Drying Kiln: Keyshawn Lopez MD Specimen(s): * No specimens [...] by Jillian Read PA-C 04/14/2023 3:32 PM [facility] 04-14-2023 Surgery Surgical operation note Eduarda Huff Frank [id number] 04/14/2023 Date of Surgery: 04/14/2023 PREOPERATIVE DIAGNOSIS: leftforearm radial shaft fracture POSTOPERATIVE DIAGNOSIS: Same. PROCEDURE:LEFT FOREARM open treatment radial shaft fracture with internal fixation Use and interpretation of operating fluoroscopy: Yes ATTENDING SURGEON: Carmela Guevara M.D. STAFF: Scrub: Nathaly Gonzalez RN Wood Drilling Machine Operator Nurse: Lesvia Knight RN; Sandy Yuen RN; Bang Rao RN Physician Animal Humane Agent Supervisor: Jillian Read PA-C Pharmacist In Charge Owner: Boy Weir MD ANESTHESIA: Consult IV FLUIDS AND URINE: See anesthesia. ESTIMATED BLOOD LOSS: 1 mL. DRAINS: None. SPECIMENS: None. COMPLICATIONS: None. IMPLANTS: Implant Name Type Inv. Item Serial No. Ged Preparation Teacher Lot No. LRB No. Used Action PLATE 9 HOLE FOREARM [id number] - [id number] PLATE 9 HOLE FOREARM [id number] [employer] Left 1 Implanted 3.5 X 16 SCREW [id number] - [id number] Screw 3.5 X 16 SCREW [id number] [employer] Left 6 Implanted INDICATIONS: Patient suffered a [...] portions of the case. Carmela Guevara MD [facility] 04-14-2023 Miscellaneous Notes Brief Operative Note BV OR 3 Eduarda Williamson 32 year old male Surgical Contact Serial Number: [id number] Preoperative Diagnosis: Pre-op Diagnosis * Closed displaced comminuted fracture of shaft of left radius, initial encounter [S52.352A] Postoperative Diagnosis: * Closed displaced comminuted fracture of shaft of left radius, initial encounter [S52.352A] Procedures: LEFT radial shaft open reduction internal fixation Surgeon(s): Surgeon(s): Carmela Guevara MD Staff: Scrub: Nathaly Gonzalez RN Wood Drilling Machine Operator Nurse: Lesvia Knight RN; Sandy Yuen RN; Bang Rao RN Physician Animal Humane Agent Supervisor: Jillian Read PA-C Pharmacist In Charge Owner: Boy Weir MD Anesthesia: LMA; local Anesthesiologist: Laura Solano MD TRANSPORT OPERATIONS INSPECTOR: Coreen Morris APRN-CRNA Taker Off Drying Kiln: Keyshawn Lopez MD Specimen(s): * No specimens [...] Read PA-C 04/14/2023 3:32 PM Eduarda Williamson [id number] 04/14/2023 Date of Surgery: 04/14/2023 PREOPERATIVE DIAGNOSIS: leftforearm radial shaft fracture POSTOPERATIVE DIAGNOSIS: Same. PROCEDURE:LEFT FOREARM open treatment radial shaft fracture with internal fixation Use and interpretation of operating fluoroscopy: Yes ATTENDING SURGEON: Carmela Guevara M.D. STAFF: Scrub: Nathaly Gonzalez RN Wood Drilling Machine Operator Nurse: Lesvia Knight RN; Sandy Yuen, ANTONINO; Bang Rao RN Physician Animal Humane Agent Supervisor: Jillian Read PA-C Pharmacist In Charge Owner: Boy Weir MD ANESTHESIA: Consult IV FLUIDS AND URINE: See anesthesia. ESTIMATED BLOOD LOSS: 1 mL. DRAINS: None. SPECIMENS: None. COMPLICATIONS: None. IMPLANTS: Implant Name Type Inv. Item Serial No. Ged Preparation Teacher Lot No. LRB No. Used Action PLATE 9 HOLE FOREARM [id number] - [id number] PLATE 9 HOLE FOREARM [id number] Au Train Left 1 Implanted 3.5 X 16 SCREW [id number] [id number] - [id number] Screw 3.5 X 16 SCREW [id number] Nanette Left 6 Implanted INDICATIONS: Patient suffered [...] were discussed with the patient and/or legal patient registration representative. The risks, benefits and alternatives were reviewed. Questions regarding blood transfusions were answered. The patient /or the patient s legal patient registration representative agree with the plan for transfusion of blood and/or blood components. documented in this encounter [facility] 04-14-2023 Progress note Formatting of t his note is different from the original. Blood Attestation: ATTESTATION OF INFORMED CONSENT FOR BLOOD: The transfusion of blood and/or blood components were discussed with the patient and/or legal patient registration representative. The risks, benefits and alternatives were reviewed. Questions regarding blood transfusions were answered. The patient /or the patient s legal patient registration representative agree with the plan for transfusion of blood and/or blood components. [facility] Work Phone: 04-14-2023 Hospital Discharge instructions Dior [...] otherwise directed by your surgeon or physician retail assistant, you may take over the counter anti-inflammatory (NSAID) medication (Ibuprofen, naproxen, etc.) as directed on the label. If you have a medical contraindication to taking NSAIDS, please consult your primary care doctor for advice. Please be sure you understand the plan for your post-operative pain management and are aware of where to pick up driver your prescriptions if not provided before [...] on weekends or holidays, please call the [facility] Nurse Line at [phone]. Appointments Your follow-up appointment is scheduled on Future Appointments Date Time Provider Department Center 04/27/2023 2:00 PM Carmela Guevara MD [facility] If you do not already have an appointment scheduled within two weeks of your surgery, please contact the surgeon s office. Do not hesitate to call your surgeon s office with any questions or concerns. After business hours please call the [facility] Nurse Line at and ask for the orthopaedic resident percussion welding machine operator. For emergencies call [phone] [facility] Upper Extremity and Hand Surgery MD Jillian Galvan PA-C Orthopaedic Surgery Nurse Line Orthopaedic Surgery Appointments [phone] For questions related to paperwork, please call Orthopaedic Surgery [phone] [facility] [place] [phone] PERIOPERATIVE DISCHARGE/HOME-GOING INSTRUCTIONS ANESTHESIA - GENERAL (ADULT) If a problem arises, you may contact your physician by calling [phone] and asking for the resident percussion welding machine operator for hand surgery service. Special Care Needs: [...] very uncomfortable and can t urinate, call [phone] or come to the emergency room. The [...] area that persists beyond 36 hours, contact [phone], and ask for the anesthesiologist percussion welding machine operator. For additional health information, call: [facility] Line at [phone]; 24 hours a day. You were given IV Toradol (which is an NSAID) today for your procedure. You next dose of Motrin is due TONIGHT at 9PM 04/14/2023 documented in this encounter [facility] 04-14-2023 History and physical note Surgical Attestation: I have reviewed the patient's History and Physical Examination. I have personally seen and evaluated the patient, repeating ortez portions. There is no significant interval change. This injury occurred at work and is a [facility] claim. Surgery is still indicated. Yes Consent reviewed and signed by patient/family: Yes Operative site verified and marked: Yes Carmela Guevara MD 04/14/2023 11:51 AM [facility] Work Phone: 04-14-2023 History and physical note Surgical Attestation: I have reviewed the patient's History and Physical Examination. I have personally seen and evaluated the patient, repeating ortez portions. There is no significant interval change. This injury occurred at work and is a [facility] claim. Surgery is still indicated. Yes Consent reviewed and signed by patient/family: Yes Operative site verified and marked: Yes Carmela Guevara MD 04/14/2023 11:51 AM documented in this encounter [facility] 04-11-2023 Note [facility] DIVISION OF TRAUMA SURGERY DISCHARGE SUMMARY [address] [address] Eduarda Williamson Date of : 1990 32 [...] in by EMS as a transfer from [facility] following a fall from height. 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 -LOC -headstrike -AC/AP. 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 CTA redemonstrates the focal hematoma in the RLQ with no evidence of active extravasation. No PTX on imaging. Mild increase in the amount of hemoperitoneum which abuts loops of lbowel. Admitted to trauma [facility] for serial abdominal exams. LUE splinted by ortho. SIGNIFICANT FINDINGS: Catalog of Injuries 1. S/p Fall from height, ~30ft (ladder) 04/08/2023 2. Traumatic mesenteric hematoma 3. Left radial shaft fracture 4. Small R apical pneumothorax 5. Acute pain due to trauma Incidental Findings None on imaging, reviewed 04/10 KO HOSPITAL COURSE: 04/08/2023: Fall from . Tx'd to [facility] from formerly [facility] for serial abdominal exams and orthopedic consultation. 04/09: Abdominal exams benign. H/H stable. Admitted to Trauma [facility]. 04/10: Advanced to regular diet. Abdominal exam [...] was informed of the risk of respiratory, FIRE FIGHTING EQUIPMENT SPECIALIST depression and when medications are misused. Additionally, patient advised on addictiveness, safe storage and disposal of opioids. Explanation of the primary diagnosis, and secondary diagnoses where applicable, including test results, Discussion of any new medications and treatments, including expected benefits and potential major side effects, Explanation of previous treatments or medications that are discontinued, Disc (more content not included)... [facility] 04-11-2023 Plan of care note Problem: [...] will be met Outcome: Adequate for Discharge [facility] 04-11-2023 Miscellaneous Notes Problem: Routine Care: Goal: [...] AdmissionCare documentation entered by: Luis Eduardo Buenrostro [facility], 27th edition, Copyright [address]22 [facility] [employer] All Rights Reserved. 7735-14-32S03:32:11-05:00 documented in this encounter [facility] 04-11-2023 Hospital course Narrative Images from the original note were not included. [facility] DIVISION OF TRAUMA SURGERY DISCHARGE SUMMARY [address] [address] Eduarda Williamson Date of : 1990 32 [...] in by EMS as a transfer from [facility] following a fall from height. 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 -LOC -headstrike -AC/AP. 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 CTA redemonstrates the focal hematoma in the RLQ with no evidence of active extravasation. No PTX on imaging. Mild increase in the amount of hemoperitoneum which abuts loops of lbowel. Admitted to trauma [facility] for serial abdominal exams. LUE splinted by ortho. SIGNIFICANT FINDINGS: Catalog of Injuries 1. S/p Fall from height, ~30ft (ladder) 04/08/2023 2. Traumatic mesenteric hematoma 3. Left radial shaft fracture 4. Small R apical pneumothorax 5. Acute pain due to trauma Incidental Findings None on imaging, reviewed 04/10 KO HOSPITAL COURSE: 04/08/2023: Fall from ht. Tx'd to [facility] from formerly [facility] for serial abdominal exams and orthopedic consultation. 04/09: Abdominal exams benign. H/H stable. Admitted to Trauma [facility]. 04/10: Advanced to regular diet. Abdominal exam [...] was informed of the risk of respiratory, FIRE FIGHTING EQUIPMENT SPECIALIST depression and when medications are misused. [...] more urgent follow up Laura Caruso APRN, [facility] Trauma Surgery Surgical Critical Care Pager: [phone] *For urgent issues arising after 5PM during the week or on weekends/holiday, please page the trauma resident percussion welding machine operator at [phone]. This patient's plan of care was discussed with Trauma Floor attending, Dr. Ibarra. documented in this encounter [facility] 04-10-2023 Note PHYSICAL THERAPY ACU TE [...] moving, I will definitely do this again. 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 Marilu Givens, PT, MPT (B) [phone] *Secure Chat with Questions NA = Not Assessed, I = Independent, ID = Modified Independent, Sup = Supervised, Set up = Physical Assistance for Set-up Only, Min = Minimal Assistance, Mod = Moderate Assistance, Max = Max assistance; Dep = Dependent; AROM = Active Range of Motion; PROM = Passive Range of Motion; MMT = Manual Muscle Test; LE = Lower Extremity [facility] 04-10-2023 Consult note Associated Order (s): [...] moving, I will definitely do this again. MARINA SALES AND SERVICE SUPERVISOR Status: (I) Living / Driving/ working Home: [...] with the plan. Marilu Givens, PT, MPT B) [phone] *Secure Chat with Questions NA = Not Assessed, I = Independent, ID = Modified Independent, Sup = Supervised, Set up = Physical Assistance for Set-up Only, Min = Minimal Assistance, Mod = Moderate Assistance, Max = Max assistance; Dep = Dependent; AROM = Active Range of Motion; PROM = Passive Range of Motion; MMT = Manual Muscle Test; LE = Lower Extremity [facility] 04-10-2023 Consult note Associated Order (s): [...] moving, I will definitely do this again. MARINA SALES AND SERVICE SUPERVISOR Status: (I) Living / Driving/ working Home: [...] with the plan. 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 If any questions contact [facility] DME Provider at [phone]. 04/10/2023 6 Clicks Daily Activity OT Help [...] Guard Assist/Supervision 4 - Non = Modified [place]/Independent ASSESSMENT: Patient is functionally appropriate for discharge home once medically cleared. No further Occupational Therapy Services reccommended at this time. PLAN: Eduarda Williamson will be d/c from acute OT services able to discuss the evaluation findings and treatment plan with the patient/family. Marilu Chaves OTR/L [employer] b. [phone] NA = Not Assessed, I = Independent, ID = Modified Independent, Sup = Supervised, Set up = Physical Assistance for Set-up Only, Min = Minimal Assistance, Mod = Moderate Assistance, Max = Max assistance; Dep = Dependent; AROM = Active Range of Motion;PROM=Passive Range of Motion; MMT = Manual Muscle Test; UB = Upper Body; LB = Lower Body documented in this encounter [facility] 04-10-2023 Plan of care note Problem: [...] will be achieved and maintained Outcome: Met [facility] 04-10-2023 Hospital Discharge instructions Laura Caruso APRN-PRODUCT TRAINER - 04/10/2023 12:16 PM EST Discharge Instructions: Date of admission: 04/08/2023 Date of discharge: 04/11/23 You are being discharged to Home Follow up: - Please call to schedule your follow-up appointments - information provided separately. - You will need to follow up with: - Trauma, as needed, for your abdominal hematoma - Ortho Hand (Ismael) in 1-2 weeks - See below for information regarding contacting your primary care physician or establishing care at [facility] if you do not already have [...] IMMEDIATELY. Alternatively, you may come into the [facility] Emergency Department IMMEDIATELY for an [...] not have a primary physician please call [phone] for guidance on finding a [facility] provider. If you have questions or concerns , if your condition worsens or you develop new symptoms please call the [facility] Line at [phone]. 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 If any questions contact [facility] DME Provider at [phone]. 04/10/2023 6 Clicks Daily Activity OT Help [...] Guard Assist/Supervision 4 - Non = Modified [place]/Independent ASSESSMENT: Patient is functionally appropriate for discharge home once medically cleared. No further Occupational Therapy Services reccommended at this time. PLAN: Eduarda Williamson will be d/c from acute OT services able to discuss the evaluation findings and treatment plan with the patient/family. Marilu Chaves OTR/L [employer] b. 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 If any questions contact [facility] DME Provider at [phone]. 04/10/2023 6 Clicks Daily Activity OT Help [...] Guard Assist/Supervision 4 - Non = Modified [place]/Independent ASSESSMENT: Patient is functionally appropriate for discharge home once medically cleared. No further Occupational Therapy Services reccommended at this time. PLAN: Eduarda Williamson will be d/c from acute OT services able to discuss the evaluation findings and treatment plan with the patient/family. Marilu Chaves OTR/L [employer] b. [phone] NA = Not Assessed, I = Independent, ID = Modified Independent, Sup = Supervised, Set up = Physical Assistance for Set-up Only, Min = Minimal Assistance, Mod = Moderate Assistance, Max = Max assistance; Dep = Dependent; AROM = Active Range of Motion;PROM=Passive Range of Motion; MMT = Manual Muscle Test; UB = Upper Body; LB = Lower Body [facility] 04-10-2023 History of Present illness Narrative Images from the original note were not included. GENERAL INFORMATION TRAUMA FLOOR - STAFF NOTE Patient Name: Eduarda Williamson Admission Date: 04/08/2023 Patient seen and examined on 04/10/23 INTERVAL HISTORY/EVENTS Background: Eduarda Williamson is a 32 year old male with no significant PMHx brought in by EMS as a transfer from [employer] following a fall from height. 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 -LOC -headstrike -AC/AP. 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 CTA redemonstrates the focal hematoma in the RLQ with no evidence of active extravasation. No PTX on imaging. Mild increase in the amount of hemoperitoneum which abuts loops of lbowel. Admitted to trauma [facility] for serial abdominal exams. LUE splinted by ortho. Hospital Course: 04/08/2023: Fall from ht. Tx'd to [facility] from formerly [facility] for serial abdominal exams and orthopedic consultation. 04/09: Abdominal exams benign. H/H stable. Admitted to Trauma [facility]. 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 Tubes/Lines/Drains - Maintain PIVs Dispo: Anticipate medical clearance for discharge tomorrow pending tolerance of regular diet Follow up: - Trauma TBD - Ortho (Ismael) in 1-2 weeks Laura Caruso APRN, [facility] Trauma Surgery Surgical Critical Care Pager: [phone] *For urgent issues arising after 5PM during the week or on weekends/holiday, please page the trauma resident percussion welding machine operator at [phone]. This patient's plan of care was discussed with Trauma Floor attending, Dr. Ibarra. Division of Trauma, Surgical Critical Care, EGS Ticket to Roll Note . Provider Called Report To (Enter Provider Name, Service, and Time): Leandra Velázquez. Trauma Surgery. 193, who is the RUP. The patient is transferring from ED, room # 48, to Trauma [address], room # 5504. The patient was added to the Trauma Surgery list. Tiara Haji MD RUP = Receiving unit provider [facility] = Regular nursing floor Serial abdominal exam at this time: soft non tender without guarding or rebound and states abdominal pain is improving Hiro Porter DO Serial abdominal exam at this time: soft non tender without guarding or rebound Hiro Porter DO [facility] Department of Surgery Division of Trauma Surgery, Acute Care Surgery, Critical Care, and [place] TRAUMA SURGERY HISTORY AND PHYSICAL Eduarda Williamson [id number] ASSESSMENT: Eduarda Williamson is a 32 year old male , with no significant PMH, who presents as a transfer from [facility] after a fall from 30ft from [place]. INJURIES: 1. Stable 2.3 x 2.2 cm [...] Kathryn Lee MD documented in this encounter [facility] 04-09-2023 Plan of care note Problem: [...] adult patient will be met Outcome: Progressing [facility] 04-08-2023 Note Formatting of this n ote [...] AdmissionCare documentation entered by: Luis Eduardo Buenrostro [facility] [employer], 27th edition, Copyright 2022 [facility] [employer] All Rights Reserved. 0814-20-25G16:32:11-05:00 [employer] Work Phone: 04-08-2023 History of Present illness Narrative CAT 2 Pt is a 32yo M presenting to ED via [employer] as transfer from [facility] s/p fall 30ft from ladder at work, L ulnar fracture, -thinners, -LOC. 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 Pt denies LOC. Pt was brought to [facility], where he was diagnosed with small R pneumothorax and L ulnar fracture. SW called pt's mother Lacho Williamson [phone] to provide update on pt status. Lacho is on the way to ED and will be visiting shortly. PLAN: Pending. ROB Penaloza, [place], MA ED Guest Experience Manager documented in this encounter [facility] 04-08-2023 History and physical note Images from the original note were not included. [facility] Department of Surgery Division of Trauma Surgery, Acute Care Surgery, Critical Care, and [place] TRAUMA SURGERY HISTORY AND PHYSICAL Eduarda Williamson [id number] BASIC INJURY INFORMATION: Level of activation: Category [...] in by EMS as a transfer from [facility] after a fall from height. Reports he [...] drug use Living status: Home Primary language: Indonesian Functional status: Independent Impairments: None Assistive Devices [...] in by EMS as a transfer from [employer] after a fall from height. Reports he [...] Pau Pineda MD PGY1 Trauma Surgery Pager: [phone] Teaching Physician Note: I saw and evaluated [...] and Emergency General Surgery Department of Surgery [facility] Pager: [phone] [facility] Work Phone: 04-08-2023 History and physical note Images from the original note were not included. [facility] Department of Surgery Division of Trauma Surgery, Acute Care Surgery, Critical Care, and [place] TRAUMA SURGERY HISTORY AND PHYSICAL Eduarda Williamson [phone] BASIC INJURY INFORMATION: Level of activation: Category [...] in by EMS as a transfer from [facility] after a fall from height. Reports he was working on a [employer] pole and fell off the top of [...] drug use Living status: Home Primary language: Indonesian Functional status: Independent Impairments: None Assistive Devices [...] in by EMS as a transfer from [employer] after a fall from height. Reports he [...] Pau Pineda MD PGY1 Trauma Surgery Pager: [phone] Teaching Physician Note: I saw and evaluated [...] and Emergency General Surgery Department of Surgery [facility] Pager: [phone] documented in this encounter [facility] 04-08-2023 Emergency department Triage note Prehospital Medications: TXA Dilaudid Zofran [facility] 04-08-2023 Emergency department Note Prehospital Medications: TXA Dilaudid Zofran 32 y/o M fall off telephone pole aprox 30 ft. Transfer from [facility] Images from the original note were not included. EMERGENCY DEPARTMENT - VISIT NOTE HISTORY OF PRESENT ILLNESS BASIC INJURY INFORMATION: Level of activation: Category 2 Trauma Mode of transport: Life Flight Mechanism of injury: Fall from height or stairs Complicating features: Not applicable Protective measures: Not applicable Date of Injury: 04/09/23 Time of Injury: Earlier today Patient origin: Transfer from outside facility - [facility] The history is provided by the Patient [...] 1L crystalloid, 1g TXA, dilaudid, and zofran guest experience captain per MLF. Anticoagulation/Antiplatelet use: denies ---- [...] significant electrolyte derangements, OSMIN or CKD. [HS] 1817 Lactate: 1.6 wnl [HS] 1818 CTA C/A/P IMPRESSION: 1. Stable 2.3 x [...] Course User Index [HS] Nona Rojas MD [facility] Medications given in the ED: Medications lactated [...] of care. Information from Independent Historian: See [facility] - MLF Personal Interpretation of labs & [...] questions. Nona Rojas MD EM PGY-2 Pager #[phone] Note has been documented by Libby Rolon [...] Jarrod Chandler MD documented in this encounter [facility] 04-08-2023 Emergency department Triage note 32 y/o M fall off telephone pole aprox 30 ft. Transfer from [facility] 04-08-2023 Physician Emergency department Note Images [...] Patient origin: Transfer from outside facility - [facility] The history is provided by the Patient and MLF. Eduarda Williamson is a 32 year old male presenting to the ED for fall from 30ft. Patient was working on [employer] pole when he fell and landed on his back on concrete, denies LOC. 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 MLF reports patient tachycardic, otherwise vss en route. 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 Anticoagulation/Antiplatelet use: denies ---- [...] --- ED COURSE IN [place] --- 165. BP: 143/127. HR: 103. SpO2: 94. [...] ALT elevation [HS] 1816 Ethanol: <10 [HS] 7 Lipase: 8 wnl [HS] 1816 INR: 0.94 [HS] 1818 COMPLETE BLOOD COUNT [...] per Dr. Lee (trauma attending) to trauma [facility] [HS] ED Course User Index [HS] Nona [...] questions. Nona Rojas MD EM PGY-2 Pager #[phone] Note has been documented by Libby Rolon [...] in the resident's note. Jarrod Chandler MD [facility] 11-08-2020 Note Infectious Disease COVID-19 COVID-19 [...] fight infection (immunocompromised). ? Live in a half-way or long-term care facility. ? Have a [...] managed at home with rest, fluids, and xzgi-dse-bowtpql medicines. Treatment for a serious infection usually [...] Rest at h (more content not included)... [facility] Evaluation note No assessment inform ation available [facility] Work Phone: Evaluation note Diagnosis Closed displaced [...] acute [facility] Closed displaced comminuted fracture of shaft of left radius, initial encounter- Primary [facility] Aftercare following surgery Encounter for other specified aftercare Closed displaced comminuted fracture of shaft of left radius, initial encounter documented [facility] this encounter [facility] Summary Purpose [...] Referral Specialty Diagnoses / Procedures Referred By Stephanie cowart Referred To Contact Occupational Therapy Diagnoses Closed displaced comminuted fracture of shaft of left radius, initial encounter Procedures OT EVAL LOW COMPLEX 30 MIN OT EVAL MOD COMPLEX 45 MIN OT EVAL HIGH COMPLEX 60 MIN WK COMP WORK CONDITIONING Carmela Guevara MD [address] [place] [address] [address] [place] [id number] Occ Therapy [address] [place] [id number] Referral ID Status Reason Start Date Expiration Date Visits Requested Visits Authorized [id number] Pending Review [facility] 04/09/2023 04/09/2024 10 10 Scheduling Instructions SCHEDULING INSTRUCTIONS: Call [phone] to schedule your Occupational Therapy appointment. We offer therapy services at many convenient locations. Please arrive 20 minutes prior to your appointment to register. It is important to bring your insurance cards and a personal identification card to your appointment. If you are unable to keep your appointment, cancel or reschedule by calling [phone] or via [employer]. Thank you! Question Answer Is this for [...] left radius, initial encounter Carmela Guevara MD [address] [place] [address] [facility] PRE ADMISSION TESTING [address] [place], [place] [id number] Referral ID Status Reason Start Date Expiration Date V isits Requested Visits Authorized [id number] Authorized 04/09/2023 04/09/2024 1 1 Scheduling Instructions Your surgical team will reach out to you to schedule a pre-admission testing appointment. Question Answer Reason for consult? Recommended PAT Risk Score Specialty Diagnoses / Procedures Referred By Contac t Referred To Contact Radiology Diagnoses Closed displaced comminuted fracture of shaft of left radius, initial encounter Procedures XR FOREARM LEFT 2 VIEWS Carmela Guevara MD [address] [place] [address] [place] [address] [facility] DIAGNOSTIC RADIOLOGY [address] [place] [address] [place] [address] Referral ID Status Reason Start Date Expiration Date V isits Requested Visits Authorized [id number] Authorized 06/14/2023 06/13/2024 1 1 Specialty Diagnoses / Procedures Referred By Contac t Referred To Contact Radiology Diagnoses Aftercare following surgery Closed displaced comminuted fracture of shaft of left radius, initial encounter Procedures XR FOREARM LEFT 2 VIEWS Carmela Guevara MD [address] [place] [address] [place] [address] [facility] DIAGNOSTIC RADIOLOGY [address] [place] [address] [place] [address] Referral ID Status Reason Start Date Expiration Date Visits Re quested Visits Authorized [id number] Closed 04/28/2023 04/27/2024 1 1 Additional Source Comments (unrecognized sect ion and content) No Status Records FoundNo Status Records FoundNo Status Records FoundNo Status Records Found INFORMATION SOURCE (unrecogn ized section and content) DATE CREATED AUTHOR 05/09/2021 [facility] DATE CREATED AUTHOR AUTHOR'S ORGANIZ ATION 03/02/2023 [facility] dical Specialists [facility] DATE CREATED AUTHOR AUTHOR'S ORGANIZ ATION 04/13/2023 [facility] DATE CREATED AUTHOR AUTHOR'S ORGANIZ ATION 06/20/2023 [facility] Care Teams (unrecognized sec tion and content) Team Status: Active Member Role Status Dates Tito Whitney MD Primary Care Provider Active Team Status: Inactive Member Role Status Dates Leonides Walker DO Emergency Provider Active Start: April 08, 2023 End: April 08, 2023 Michael Mrash DO RES Active Start: April 08, 2023 End: April 08, 2023 Tito Whitney MD Primary Care Provider Active Start: April 08, 2023 End: April 08, 2023 Objects Conservator Relationship Specialty Start Date End Date Carmela Guevara MD [address] [place] [address] [place] [address] Physician Orthopaedic Hand Service 05/01/23 Laura Victoria OTR/L [address] [place] [address] [place] [address] Occupational Therapist Occupational Therapy 06/05/23 Objects Conservator Relationship Specialty Start Date End Date Carmela Guevara MD [address] [place] [address] [place] [address] Physician Orthopaedic Hand Service 05/01/23 Laura Victoria OTR/L [address] [place] [address] [place] [address] Occupational Therapist Occupational Therapy 06/05/23 Goals (unrecognized section and content) Goals may be documented in a n alternate section Reason for Visit (unrecogniz ed section and content) Reason Comments Trauma/complex Medical Situation Specialty Diagnoses / Procedures Referred By Contac t Referred To Contact Emergency Medicine Diagnoses Contusion of other intra-abdominal organs, initial encounter TRAUMA: fall with mesenteric artery dissection Procedures n/a [facility] [address] [place], [place] [address] [place] [address] Phone: [phone] [facility] [address] [place] [address] Phone: [phone] Referral ID Status Reason Start Date Expiration Date Visits Re quested Visits Authorized [id number] 3 3 Specialty Diagnoses / Procedures Referred By Contac t Referred To Contact Ambulatory Surgery Diagnoses Closed displaced comminuted fracture of shaft of left radius, initial encounter Closed displaced comminuted fracture of shaft of left radius, initial encounter [S52.352A] Procedures REDUCTION, OPEN, RADIUS Carmela Guevara MD [address] [facility] [address] [place] [address] [facility] [address] [place] [address] Phone: [phone] Referral ID Status Reason Start Date Expiration Date Visits Re quested Visits Authorized [id number] 3 3 Reason Comments Joint Pain Arm symptoms Left arm fracturePt states he fell and broke arm 04/08. Pt states there is occasional shooting pains but otherwise feels there has been progress overall Specialty Diagnoses / Procedures Referred By Stephanie cowart Referred To Contact Radiology Diagnoses Aftercare following surgery Closed displaced comminuted fracture of shaft of left radius, initial encounter Procedures XR FOREARM LEFT 2 VIEWS Carmela Guevara MD [address] [place] [address] [place] [address] [facility] DIAGNOSTIC RADIOLOGY [address] [place] [address] [place] [address] Referral ID Status Reason Start Date Expiration Date Visits Re quested Visits Authorized [id number] Closed 04/28/2023 04/27/2024 1 1 Scheduled Active and Recently Administ ered Medications (unrecognized section and content) Medication Order 04/09/2023 04/10/2023 04/11/2023 acetaminophen (TYLENOL) tablet 1,000 mg, Oral, Every 6 hours, First dose on Marlys 04/08/23 at 2003, Until Discontinued 203 (Hold/Not Given - Provider: Guanaco Ram RN - Reason: Not indicated)0849 (Given - Provider: Constance Barnett RN)1328 (Given - Provider: Madyson Nicolas RN)2154 (Given - Provider: Alejandra Roberts RN) 0400 (Hold/Not Given - Provider: Alejandra Roberts RN - Reason: Patient sleeping)0813 (Given - Provider: Uri Cade)1309 (Given - Provider: Uri Cade)2050 (Given - Provider: Alejandra Roberts RN) 0246 (Given - Provider: Alejandra Roberts, ANTONINO)0850 (Given - Provider: Krystal Dominguez RN)1500 (Due - Provider: Krystal Dominguez RN)2003 (Due) enoxaparin (LOVENOX) 40 MG/0.4ML injection 40 mg 40 mg (rounded from 35 mg = 0.5 mg/kg 70 kg Order-specific weight), Subcutaneous, 2 TIMES DAILY, First dose on Wed04/09/23 at 2100, Until Discontinued 2153 (Given - Provider: Alejandra Roberts RN) 0813 (Given - Provider: Uri Cade)2050 (Given - Provider: Alejandra Roberts RN) 0850 (Given - Provider: Krystal Dominguez RN)2099 (Due) HYDROmorphone (DILAUDID) 0.2 MG/ML injection 0.4 mg (COMPLETED) 0.4 mg, Intravenous Push, ONCE, 1 dose, On Wed04/09/23 at 0132 0117 (Given - Provider: Guanaco Ram RN) polyethylene glycol (MIRALAX) 17 g packet 17 g, Oral, DAILY, First dose on Wed04/09/23 at 1307, Until Discontinued 1307 (Hold/Not Given - Provider: Madyson Nicolas RN - Reason: NPO) 0813 (Given - Provider: Uri Cade) 0850 (Hold/Not Given - Provider: Krystal Dominguez RN - Reason: Clinical contraindications) senna (SENOKOT) tablet 8.6 mg, Oral, AT BEDTIME, First dose on Wed04/09/23 at 2200, Until Discontinued 2153 (Given - Provider: Alejandra Roberts RN) 2099 (Hold/Not Given - Provider: Alejandra Roberts RN - Reason: Clinical contraindications) 2200 (Due) PRN Medication Order 04/09/2023 04/10/2023 04/11/2023 albuterol (PROVENTIL) (2.5 MG/3ML) 0.083% nebulizer solution 2.5 mg, Nebulization, EVERY 4 HOURS PRN, Starting on Wed04/09/23 at 2345, Until Discontinued, Shortness of Breath, Wheezing 0008 (Given - Provider: Sandy Moore, RT) oxyCODONE immediate release tablet (CANCELED) 10 mg, Oral, EVERY 4 HOURS PRN, Starting on Wed04/09/23 at 1211, Until 04/10/23 at 1011, Severe Pain (pain score 7,8,9,10) 1328 (Given - Provider: Madyson Nicolas, ANTONINO)1750 (Given - Provider: Yolanda Laboy RN)2155 (Given - Provider: Alejandra Roberts RN) 0159 (Given - Provider: Alejandra Roberts RN) oxyCODONE immediate release tablet(Linked Group 1) 2.5 mg, Oral, EVERY 4 HOURS PRN, Starting on 04/10/23 at 1010, Until Discontinued, Moderate Pain (pain score 4,5,6) 2050 (See Alternative - Provider: Alejandra Roberts RN) 0850 (See Alternative - Provider: Krystal Dominguez RN) oxyCODONE immediate release tablet(Linked Group 1) 5 mg, Oral, EVERY 4 HOURS PRN, Starting on 04/10/23 at 1010, Until Discontinued, Severe Pain (pain score 7,8,9,10) 2050 (Given - Provider: Alejandra Roberts RN) 0850 (Given - Provider: Krystal Dominguez RN) Linked Groups Order Group 1: oxyCODONE immediate [...] BE BASED ON THE PRIMARY CLINICAL RECORDS. [employer] provides no warranty or guarantee of the accuracy or completeness of information in this document.
[2023-07-07] MEDS: HYDROCODONE/ACET 5-325 MG TABLET 2 TAB PO (23:13)
[2023-07-07] MEDS: KETOROLAC TROMETHAMINE 30 MG/ML VIAL IVP (23:13)
== END 2023-07-07 23:18 | disposition home or self-care (01) ==
PROVIDERS: Emergency Provider Emergency Medicine; PCP Family Medicine
DX: M54.6 Pain in thoracic spine (principal); R07.81 Pleurodynia
CPT/HCPCS: 36415; 71275; 80053; 85025; 96361; 96372; 96374; 96375; 99285; Q9967

== ENCOUNTER 2023-07-21 07:58 | Outpatient (OUT) | payer OTHER, BC, SELFPAY ==
--- NOTE | 2023-07-21 08:04 | MR_ITS ---
[address] [address] Patient Name: EDUARDA WILLIAMSON MRN: [id number] date: 1990 Sex: M Assigned Patient Location: MRI Current Patient Location: MRI Accession/Order Number: [id number] Exam Date: 07/21/2023 08:35 Report Date: 07/21/2023 11:16 At the request of: RAKAN VALENTIN Procedure: MR hip LT wo con EXAMINATION: MR hip RT wo con, MR hip LT wo con HISTORY: Right Hip Sprain S73.101A COMPARISON: No relevant comparison available. TECHNIQUE: A comprehensive examination was performed utilizing a variety of imaging planes and imaging parameters to optimize visualization of suspected pathology. Images were performed without contrast. RIGHT HIP: FINDINGS: FEMORAL HEAD: Normal. No AVN, fracture, or significant arthropathy. ACETABULUM: Normal. No fracture or significant arthropathy. OTHER BONES: Normal appearance of the visualized portion of the pelvis. LABRUM: Normal appearance for a patient in this age group, with no visible tear. EFFUSIONS: None. No synovitis or loose bodies. BURSAE: Normal. No evidence of iliopsoas or trochanteric bursitis. TENDONS: Normal. Normal gluteus tendons, iliopsoas tendon, and hamstring origin. MUSCLES: Normal. No tear or strain. No inappropriate atrophy. OTHER: Negative. MR/MR hip LT wo con IMPRESSION: Normal examination. LEFT HIP: FINDINGS: FEMORAL HEAD: Normal. No AVN, fracture, or significant arthropathy. ACETABULUM: Normal. No fracture or significant arthropathy. OTHER BONES: Normal appearance of the visualized portion of the pelvis. LABRUM: Normal appearance for a patient in this age group, with no visible tear. EFFUSIONS: None. No synovitis or loose bodies. BURSAE: Normal. No evidence of iliopsoas or trochanteric bursitis. TENDONS: Normal. Normal gluteus tendons, iliopsoas tendon, and hamstring origin. MUSCLES: Normal. No tear or strain. No inappropriate atrophy. OTHER: Negative. IMPRESSION: Normal examination. Electronically authenticated by: VINICIUS GARCIA Date: 07/21/2023 11:16
--- NOTE | 2023-07-21 08:04 | MR_ITS ---
[address] [address] Patient Name: EDUARDA WILLIAMSON MRN: [id number] date: 1990 Sex: M Assigned Patient Location: MRI Current Patient Location: MRI Accession/Order Number: [id number] Exam Date: 07/21/2023 08:35 Report Date: 07/21/2023 11:16 At the request of: RAKAN VALENTIN Procedure: MR hip RT wo con EXAMINATION: MR hip RT wo con, MR hip LT wo con HISTORY: Right Hip Sprain S73.101A COMPARISON: No relevant comparison available. TECHNIQUE: A comprehensive examination was performed utilizing a variety of imaging planes and imaging parameters to optimize visualization of suspected pathology. Images were performed without contrast. RIGHT HIP: FINDINGS: FEMORAL HEAD: Normal. No AVN, fracture, or significant arthropathy. ACETABULUM: Normal. No fracture or significant arthropathy. OTHER BONES: Normal appearance of the visualized portion of the pelvis. LABRUM: Normal appearance for a patient in this age group, with no visible tear. EFFUSIONS: None. No synovitis or loose bodies. BURSAE: Normal. No evidence of iliopsoas or trochanteric bursitis. TENDONS: Normal. Normal gluteus tendons, iliopsoas tendon, and hamstring origin. MUSCLES: Normal. No tear or strain. No inappropriate atrophy. OTHER: Negative. MR/MR hip RT wo con IMPRESSION: Normal examination. LEFT HIP: FINDINGS: FEMORAL HEAD: Normal. No AVN, fracture, or significant arthropathy. ACETABULUM: Normal. No fracture or significant arthropathy. OTHER BONES: Normal appearance of the visualized portion of the pelvis. LABRUM: Normal appearance for a patient in this age group, with no visible tear. EFFUSIONS: None. No synovitis or loose bodies. BURSAE: Normal. No evidence of iliopsoas or trochanteric bursitis. TENDONS: Normal. Normal gluteus tendons, iliopsoas tendon, and hamstring origin. MUSCLES: Normal. No tear or strain. No inappropriate atrophy. OTHER: Negative. IMPRESSION: Normal examination. Electronically authenticated by: VINICIUS GARCIA Date: 07/21/2023 11:16
--- NOTE | 2023-07-21 08:06 | XR_ITS ---
[address] [address] Patient Name: EDUARDA WILLIAMSON MRN: [id number] date: 1990 Sex: M Assigned Patient Location: MRI Current Patient Location: MRI Accession/Order Number: [id number] Exam Date: 07/21/2023 08:10 Report Date: 07/21/2023 08:36 At the request of: RAKAN VALENTIN Procedure: XR foreign body eye EXAMINATION: XR foreign body eye HISTORY: Foreign Body Eye COMPARISON: No relevant comparison available. FINDINGS: ORBITS: Negative for a metallic foreign body. OTHER: Negative. XR/XR foreign body eye IMPRESSION: No metallic foreign body in the orbits Electronically authenticated by: VINICIUS GARCIA Date: 07/21/2023 08:36
== END 2023-07-21 07:59 | disposition home or self-care (01) ==
LOC: MRI 07:59
PROVIDERS: PCP Family Medicine; Visit Provider Nurse Practitioner Family
DX: S33.5XXA Sprain of ligaments of lumbar spine, initial encounter (principal); S73.102A Unspecified sprain of left hip, initial encounter; S73.101A Unspecified sprain of right hip, initial encounter
CPT/HCPCS: 70030; 73721

== ENCOUNTER 2023-07-22 09:02 | Outpatient (OUT) | payer OTHER, BC, SELFPAY ==
--- NOTE | 2023-07-22 09:00 | MR_ITS ---
[facility] [place] [id number] Patient Name: EDUARDA WILLIAMSON MRN: [id number] date: 1990 Sex: M Assigned Patient Location: MRI Current Patient Location: MRI Accession/Order Number: [id number] Exam Date: 07/22/2023 09:00 Report Date: 07/22/2023 10:15 At the request of: RAKAN VALENTIN Procedure: MR lumbar spine wo con MR lumbar spine wo con, 07/22/2023 9:00 AM EDT INDICATION: sprain of ligaments of lumbar spine S33.5XXA COMPARISON: There is no appropriate prior study for comparison. TECHNIQUE: Multiplanar, multisequential MRI images of lumbar spine were obtained without contrast. FINDINGS: For dictation purposes, the lowest complete disc space in the lumbar spine considered as L5-S1. There is loss of normal physiologic lumbar lordosis. The vertebral height is preserved. The conus medullaris is at the level of L1. No signal abnormality within the visualized spinal cord is noted. No neural foraminal narrowing or canal stenosis is noted. There is no disc desiccation. The paraspinal muscles show minimal T2 prolongation at the level of L3-L4 suggesting of mild contusion. No ligamentous injury is noted. MR/MR lumbar spine wo con IMPRESSION: Mild contusion of the paraspinal muscles at the level of L3-4. No muscle tear or ligamentous injury is noted. Electronically authenticated by: OVIDIO ARROYO Date: 07/22/2023 10:15
== END 2023-07-22 09:03 | disposition home or self-care (01) ==
LOC: MRI 09:02
PROVIDERS: PCP Family Medicine; Visit Provider Nurse Practitioner Family
DX: S33.5XXA Sprain of ligaments of lumbar spine, initial encounter (principal); S73.102A Unspecified sprain of left hip, initial encounter; S73.101A Unspecified sprain of right hip, initial encounter
CPT/HCPCS: 72148

== ENCOUNTER 2023-09-06 14:23 | Outpatient (OUT) | payer OTHER, SELFPAY ==
--- NOTE | 2023-09-06 15:37 | P.CN_ITS ---
Consult Note: HPI Data of Consult Patient: new to practice Consult date: 09/06/23 Requesting Physician: Alin Khanna MD Primary Care Provider: Tito Whitney MD Family Provider: NRJESUSEST Consult Narrative Reason for consult: left forearm pain Narrative: 32yom who presents for evaluation. had workplace injury about 5 months ago, during which time he fractured his left radius. underwent plating at that time. has completed therapy subsequently, but continues to have significant left forearm pain. describes as burning, pressure, sharp, feels swelling and temp changes. currently taking mobic and gabapentin 100mg qday, without much benefit. cc:: CC: Alin Khanna MD Review of Systems ROS Status of ROS 10 or more systems reviewed and unremark able except as noted in history and [facility] History Smoking status: Never smoker Meds Home Medications and Allergies Home Medications ?Medication ?Instructions ?Recorded ?Confirmed ?Type celecoxib 200 mg capsule (Celebrex) 200 mg PO BID 09/06/23 09/06/23 History gabapentin 300 mg capsule 300 mg PO TID 09/06/23 09/06/23 History Allergies Allergy/AdvReac Type Severity Reaction Status Date / Time No Known Drug Allergies Allergy Verified 03/01/23 18:37 Exam Narrative Exam Narrative: Psych-alert and oriented x 3.? Attentive and appropriate, constitutionally normal, displays normal mood and affect per situation.? There are no obvious deficits in memory, reasoning, or intellect. Examination of the left upper extremity reveals notable hyperpathia and allodynia.? Notable atrophy and diffuse weakness present in the extremity.? There is notable shiny skin with hair loss and abnormal hair growth denoting trophic changes presently.? Asymmetric color and temperature changes are present which denotes sudomotor changes.? Decreased range of motion and strength is noted in the extremity.? Coordination remains intact.? Gait remains non-antalgic. Assessment and Plan Assessment and Plan (1) Closed fracture of shaft of left radius: Qualifiers: Encounter type: initial encounter Fracture morphology: unspecified fracture morphology Qualified Code(s): S52.302A - Unspecified fracture of shaft of left radius, initial encounter for closed fracture Plan 32yom who presents for evaluation. failed conservative measures, as noted. given symptoms and injury history, likely would benefit from left stellate ganglion block x2 with ivcs. he is in agreement. meds reviewed. will discontinue mobic and trial celebrex 200mg bid prn, as well as increase gabapentin to 300mg tid. follow up after procedure.
== END 2023-09-06 14:24 | disposition home or self-care (01) ==
LOC: PM 14:24
PROVIDERS: PCP Family Medicine; Visit Provider Anesthesiology
DX: S52.302A Unspecified fracture of shaft of left radius, initial encounter for closed fracture (principal)
CPT/HCPCS: G0463

== ENCOUNTER 2023-11-19 06:47 | Outpatient (OUT) | payer OTHER, BC, SELFPAY ==
--- OUTSIDE RECORDS SUMMARY | 2023-11-19 06:51 | XMS_ITS | CCD ---
Author Organization [facility] Care Team Providers Care Service Greeter Name Role Phone DO Leonides Walker Emergency Provider MD Tito Whitney Primary Care Provider [phone] Unavailable Primary Care Provider Unavailabl e Leonides Walker Attending Unavailable Leonides Walker Admitting Unavailable Tito Whitney Primary Care Unavailable Carmela Guevara MD Unavailable Cornachione OTR/L, Laura Unavailable [phone] CARMELA GUEVARA Attending Unavailable ISMAEL, CARMELA Referring Unavailable ISMAEL, CARMELA Admitting Unavailable ISMAEL, CARMELA Admitting Unavailable PROVIDER, UNKNOWN Attending Unavailable ISMAEL, CARMELA Admitting Unavailable PROVIDER, UNKNOWN Attending Unavailable PROVIDER, UNKNOWN Attending Unavailable JILLIAN READ Referring Unavailable PROVIDER, UNKNOWN Admitting Unavailable PETERSON, MARLEY Referring Unavailable PROVIDER, UNKNOWN Attending Unavailable PROVIDER, UNKNOWN Admitting Unavailable CARMELA GUEVARA Attending Unavailable PROVIDER, UNKNOWN Admitting Unavailable LAURA VICTORIA Attending Unavailable ISMAEL, CARMELA Referring Unavailable PROVIDER, UNKNOWN Admitting Unavailable PROVIDER, UNKNOWN Attending Unavailable PROVIDER, UNKNOWN Admitting Unavailable ISMAELCARMELA Attending Unavailable PROVIDER, UNKNOWN Admitting Unavailable PROVIDER, UNKNOWN Admitting Unavailable PETERSON, MARLEY Referring Unavailable JARROD CHANDLER Attending Unavailable PROVIDER, UNKNOWN Attending Unavailable PROVIDER, UNKNOWN Admitting Unavailable YING HOLT Admitting Unavailable PETERSON, MARLEY Referring Unavailable PROVIDER, UNKNOWN Attending Unavailable PROVIDER, UNKNOWN Attending Unavailable ISMAEL, CARMELA Referring Unavailable PROVIDER, UNKNOWN Admitting Unavailable Jey BOWERS, Alin Wright Attending Unavailable BOBY SOMMERS Attending Unavailable FRANCES ISBELL Attending Unavailable MD Tito Whitney Primary Care Provider [phone] DO Buster Guillaume Jr Attending Provider [phone] Medications Current Medications Medication Drug Class(es) Dates [...] RCAN) 0.4 MG/ML injection polyethylene glycol 3350 [id number] mg powder for oral solution (1 source) Osmotic Laxative Start: 04-09-2023 polyethylene glycol (MIRALAX) 17 g packet sennosides, fpc 8.6 mg oral tablet (5 sources) Start: [...] 04-10-2023 Episodic Crushing injury or internal injury (18 sources) Injury of superior mesenteric artery; Translations: [Unspecified injury of superior mesenteric artery, initial encounter] Onset: 04-08-2023 04-08-2023 Episodic E Codes: Fall (9 sources) Fall; Translations: [Unspecified fall, initial encounter] Onset: 04-10-2023 04-08-2023 Episodic Fracture of upper limb (15 sources) Fracture of left radius; Translations: [Unspecified [...] [EKG]] 04-10-2023 Episodic Pleurisy; pneumothorax; pulmonary collapse (2 sources) Pneumothorax; Translations: [Pneumothorax, unspecified] 04-08-2023 Episodic Unclassified (1 source) Displaced transverse fracture of shaft of left radius, initial encounter for closed fracture; Translations: [Displaced transverse fracture of shaft of left radius, initial encounter for closed fracture] Onset: 04-08-2023 Results Test Name Value Interpretation Reference Range Facility Progress Noteson 06-14-2023 Account Manager Trainee Authentication Interface Message Text Hand Clinic Post-operative [...] failure or loosening. Left forearm MACRO: None [facility] Rad[facility] Study observation (narrative) [facility] XR Radius and Ulna - left Vi ewsOrdered By: Eduarda Nichole on 06-14-2023 [facility] Work Phone: Progress Noteson 04-29-2023 Account Manager Trainee Authentication Interface Message Text Patient was identified by name and date of . Kristi Mercedes RN, RN Patient at risk for falls:No Falls Risk protocol implemented: No Normal [facility] Account Manager Trainee Authentication Interface Message Text I am seeing Mr Williamson today for routine trauma follow up. He was admitted on 04/08 after a fall from a ladder. Injuries included left radius fracture, small right apical pneumothorax and mesenteric hematoma. He arrived as a transfer from [facility]. His injuries were treated non-operatively. He was [...] when cleared by occupational medicine Labs from [facility] reviewed, very mild anemia,. Improved from last lab work here No further follow up with trauma is needed Tyshawn Ibarra MD Normal [facility] Progress Noteson 04-28-2023 Account Manager Trainee Authentication Interface Message Text Hand Clinic Post-operative [...] Plan: XR FOREARM LEFT 2 VIEWS, OCCUP HHVXKEO-GDEWS-HKNT/TREAT SERVICE RQST, EXTERNAL - start ROM and volar resting splint SERVICE REQUEST FOR CARE OUTSIDE THE [facility] SYSTEM [facility]-14 light duty x 12 weeks post op X-rays on follow up: yes, L forearm Follow up: 6 weeks Carmela Guevara MD Hand and Upper Extremity Surgeon 04/28/23 Normal [facility] Progress Noteson 04-27-2023 Account Manager Trainee Authentication Interface Message Text Patient was identified by name and date of .Removed left short arm splint without incident patient sent to x-ray. Normal [facility] XR FOREARM LEFT 2 VIEWSon XR [...] intact.] Left forearm MACRO: None Normal [facility] Anesthesia Acute Painon - Account Manager Trainee Authentication Interface Message Text Teaching Physician Note: [...] ultrasound guidance Acute pain Keyshawn Lopez MD Portable Router Operator, PGY-4 Normal [facility] Anesthesia Postprocedure Rajni monsivais 04-14-2023 Account Manager Trainee Authentication Interface Message Text Anesthesia Postoperative Assessment: [...] EVENTS: No notable events documented. Normal [facility] Anesthesia Transfer Of Careo n 04-14-2023 Account Manager Trainee Authentication Interface Message Text Patient taken to [...] Carmela Guevara MD Anesthesiologist: Laura Solano MD MACHINE ROOM OPERATOR: Coreen Morris APRN-MACHINE ROOM OPERATOR Molding Utility Worker: Keyshawn Lopez MD REDUCTION, OPEN, RADIUS (Left: [...] 1312 Infusion Status Port #1 Infusing;Patent 04/14/23 131 Airway Adjunct: Nasal Trumpet 34 (Active) Airway Insertion Details [REMOVED] Advanced Airway: LMA;Cuffed #5 (Removed) 04/14/23 131 Pre-Oxygenation/ Induction: Mask Rapid Sequence Induction?: Mask Ventilation: Blade Type: Blade Size: Visualization: Airway Type: LMA;Cuffed Airway Size: #5 Post Insertion Assessment: Confirmation: Equal bilateral breath sounds, CO2 confirmed # Attempts >1: Special Equipment: Present on Admission?: Previously Removed / Not Present: Removal Reason: Not Removed at Discharge: Removed 04/14/23 1521 Secured via: Taped 04/14/231316 Site Assessment WNL 04/14/23 131 All non-working [...] was received. Keyshawn Lopez MD Normal [facility] Blood Attestationon 04-14-19 Account Manager Trainee Authentication Interface Message Text Blood Attestation: ATTESTATION OF INFORMED CONSENT FOR BLOOD: The transfusion of blood and/or blood components were discussed with the patient and/or legal manufacturer representative. The risks, benefits and alternatives were reviewed. Questions regarding blood transfusions were answered. The patient /or the patient's legal manufacturer representative agree with the plan for transfusion of blood and/or blood components. Normal [facility] Brief Operative Noteon 04-14 Account Manager Trainee Authentication Interface Message Text Brief Operative Note BV OR 3 Eduarda Williamson 32 year old male Surgical Contact Serial Number: [id number] Preoperative Diagnosis: Pre-op Diagnosis * Closed displaced comminuted fracture of shaft of left radius, initial encounter [S52.352A] Postoperative Diagnosis: * Closed displaced comminuted fracture of shaft of left radius, initial encounter [S52.352A] Procedures: LEFT radial shaft open reduction internal fixation Surgeon(s): Surgeon(s): Carmela Guevara MD Staff: Scrub: Nathaly Gonzalez RN Utility Bag Assembler Nurse: Lesvia Knight RN; Sandy Yuen, ANTONINO; Bang Rao RN Physician Adult Day Care Worker: Jillian Read PA-C Aerial Installer: Boy Weir MD Anesthesia: LMA; local Anesthesiologist: Laura Solano MD MACHINE ROOM OPERATOR: Coreen Morris APRN-CRNA Molding Utility Worker: Keyshawn Lopez MD Specimen(s): * No specimens [...] Read PA-C 04/14/2023 3:32 PM Normal [facility] OP Noteon 04-14-2023 Account Manager Trainee Authentication Interface Message Text Eduarda Williamson [id number] 04/14/2023 Date of Surgery: 04/14/2023 PREOPERATIVE DIAGNOSIS: leftforearm radial shaft fracture POSTOPERATIVE DIAGNOSIS: Same. PROCEDURE:LEFT FOREARM open treatment radial shaft fracture with internal fixation Use and interpretation of operating fluoroscopy: Yes ATTENDING SURGEON: aCrmela Guevara M.D. STAFF: Scrub: Nathaly Gonzalez RN Utility Bag Assembler Nurse: Lesvia Knight RN; Sandy Yuen RN; Bang Rao RN Physician Adult Day Care Worker: Jillian Read PA-C Aerial Installer: Boy Weir MD ANESTHESIA: Consult IV FLUIDS AND URINE: See anesthesia. ESTIMATED BLOOD LOSS: 1 mL. DRAINS: None. SPECIMENS: None. COMPLICATIONS: None. IMPLANTS: Implant Name Type Inv. Item Serial No. Trimming Cutter Machine Lot No. LRB No. Used Action PLATE 9 HOLE FOREARM [id number] - [id number] PLATE 9 HOLE FOREARM [id number] Kenefic Left 1 Implanted 3.5 X 16 SCREW [id number] - [id number] Screw 3.5 X 16 SCREW [id number] Nanette Left 6 Implanted INDICATIONS: Patient suffered [...] the case. Carmela Guevara MD Normal The [facility] US GUIDANCE NEEDLE PLACEMENT on 04-14-2023 [...] of the procedure and ultrasound. Normal [facility] US Guidance for placement of needle in Unspecified body regionon 04-14-2023 : Technical services were performed by the department of Anesthesia. Please see the Procedure note for interpretation. Please refer to the patient's chart for the results of the procedure and ultrasound. [facility] Narrative & Impressi on EXAMINATION: US GUIDANCE NEEDLE PLACEMENT CLINICAL HISTORY: peripheral nerve block Left brachial plexus nerve block, axillary approach [facility] Radiology Study observation (narrative) [facility] US Guidance for placement of needle in Unspecified body regionOrdered By: Keyshawn Lopez on 04-14-2023 [facility] Work Phone: Anesthesia Preprocedure Eval uationon 04-13-2023 Account Manager Trainee Authentication Interface Message Text ASA: 2 No [...] in by EMS as a transfer from [facility] following 30 ft fall from ladder. imaging [...] were discussed with the patient and/or legal manufacturer representative. The risks, benefits and alternatives were reviewed. Questions regarding anesthesia were answered. Patient and/or legal manufacturer representative knows such anesthetics and procedures may be performed by Resident physicians, Certified Anesthesiologist Assistants, or Certified Nurse Anesthetists under the supervision of a physician. The patient /or the patient's legal manufacturer representative agree with the plan for anesthesia. Normal [facility] CBC panel Auto (Bld)on 04-11 Erythrocyte [...] vol] 87 fL 80 - 100 fL [facility] Platelet mean volume (Bld) [Entitic vol] 7.2 fL Low 7.5 - 11.2 fL [facility] Platelets (Bld) [#/Vol] 201 10*3/uL 150 - 400 K/uL [facility] RBC (Bld) [#/Vol] 3.90 10*6/uL Low [facility] WBC (Bld) [#/Vol] 8.9 10*3/uL 4.5 - 11.5 K/uL [facility] COMPLETE BLOOD COUNTon 04-11 Erythrocyte distribution width (RBC) [Ratio] 14.0 % Normal 11.5-14.5 The [facility] Comment on above: Performed By: #### C H8 #### [facility] [address] [place] [address], Hematocrit (Bld) [Volume fraction] 33.8 % Low 41.0-53.0 The [facility] Comment on above: Performed By: #### C H8 #### [facility] [address] [place] [address], Hemoglobin (Bld) [Mass/Vol] 11.3 g/dL Low 13.9-16.3 [facility] Comment on above: Performed By: #### C H8 #### [facility] [address] [place] [address], MCH (RBC) [Entitic mass] 29.0 pg Normal 26.0-34.0 The [facility] Comment on above: Performed By: #### C H8 #### S [facility] [address] [place] [address], MCHC (RBC) [Mass/Vol] 33.5 g/dL Normal 32.0-35.9 The [facility] Comment on above: Performed By: #### C H8 #### [facility] [address] [place] [address], MCV (RBC) [Entitic vol] 87 fL Normal 80-100 The [facility] Comment on above: Performed By: #### C H8 #### [facility] [address] [place] [address], Platelet mean volume (Bld) [Entitic vol] 7.2 fL Low 7.5-11.2 [facility] Comment on above: Performed By: #### C H8 #### S [facility] [address] [place] [address], Platelets (Bld) [#/Vol] 201 10*3/uL Normal 150-400 [facility] Comment on above: Performed By: #### C H8 #### [facility] [address] [place] [address], RBC (Bld) [#/Vol] 3.90 10*6/uL Low 4.50-5.90 [facility] Comment on above: Performed By: #### C H8 #### S [facility] [address], [place], WBC (Bld) [#/Vol] 8.9 10*3/uL Normal 4.5-11.5 [facility] Comment on above: Performed By: #### C H8 #### [facility] [address] [place] [address], Care Plan Noteon 04-11-2023 Account Manager Trainee Authentication Interface Message Text Problem: Routine Care: [...] met Outcome: Adequate for Discharge Normal [facility] MAGNESIUMon 04-11-2023 Magnesium [Mass/Vol] 2.0 mg/dL Normal 1.9-2.7 [facility] Comment on above: Result Comment: Note updated reference ranges. Performed By: #### Philly Contreras, PHOS #### [facility] [address], [place], Magnesium [Mass/Vol] 2.0 mg/dL 1.9 - 2 .7 mg/dL [facility] Comment on above: Note updated referen ce ranges. No Panel Informationon 04-11 Interpretation and review of laboratory results Normal [facility] PHOSPHORUSon 04-11-2023 Phosphate [Mass/Vol] 4.5 mg/dL Normal 2.5-5.0 [facility] Comment on above: Result Comment: Note updated reference ranges. Performed By: #### Philly Contreras, PHOS #### [facility] [address], [place], Phosphate [Mass/Vol] 4.5 mg/dL 2.5 - 5 .0 mg/dL [facility] Comment on above: Note updated referen ce ranges. Progress Noteson 04-11-2023 Account Manager Trainee Authentication Interface Message Text ---- GENERAL INFORMATION --- TRAUMA FLOOR - STAFF NOTE Patient Name: Eduarda Williamson Admission Date: 04/08/2023 Patient seen and examined on 04/11/23 -- INTERVAL HISTORY/EVENTS Background: Eduarda Williamson is a 32 year old male with no significant PMHx brought in by EMS as a transfer from [facility] following a fall from height. 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 -LOC -headstrike -AC/AP. [facility] imaging demonstrated a small R PTX, SMA [...] lbowel. Admitted to trauma [facility] for serial abdominal exams. LUE splinted by ortho. Hospital Course: 04/08/2023: Fall from ht. Tx'd to [facility] from [facility] for serial abdominal exams and orthopedic consultation. 04/09: Abdominal exams benign. H/H stable. Admitted to Trauma [facility]. 24 Hour Events: This is my first [...] Hct MCV RDW Plt PT aPTT INR 04/11/238 8.9 3.90 11.3 33.8 87 14.0 201 [...] Continue pulmonary toilet, encourage IS - Respiratory Commercial Loan Officer Protocol - Maintain O2 Sats > 92% [...] off (more content not included)... Normal [facility] BASIC METABOLIC PANELon 04-01-2023 Anion gap [Moles/Vol] 13 mmol/L Normal 10-20 [facility] Comment on above: Performed By: #### C H8 #### [facility] [address] [place] [address], Calcium [Mass/Vol] 8.9 mg/dL Normal 8.6-10.3 [facility] Comment on above: Result Comment: Note updated reference ranges. Performed By: #### C H8 #### [facility] [address] [place] [address], [phone] Chloride [Moles/Vol] 102 mmol/L Normal 98-107 [facility] Comment on above: Result Comment: Note updated reference ranges. Performed By: #### C H8 #### [facility] [address] [place] [address], [phone] CO2 [Moles/Vol] 26 mmol/L Normal 21-31 [facility] Comment on above: Result Comment: Note updated reference ranges. Performed By: #### C H8 #### [facility] [address] [place] [address], Creatinine [Mass/Vol] 0.85 mg/dL Normal 0.70-1.30 [facility] Comment on above: Result Comment: Note updated reference ranges. Performed By: #### C H8 #### [facility] [address] [place] [address], ESTIMATED GFR (CKD-EPI) 120 mL/min/1.73sqm Normal >=60 [facility] Comment on above: Result Comment: 2020 [...] Inclusion of Race in Diagnosing Kidney Disease. [place] Journal of Kidney Diseases 2021;79(2):268-88.e1. 2. N Engl J Med 1 Vol. 385 Issue 19 Pages [phone] Performed By: #### C H8 #### [facility] [address], [place], Glucose [Mass/Vol] 87 mg/dL Normal 74-109 [facility] Comment on above: Performed By: #### C H8 #### [facility] [address], [place], Potassium [Moles/Vol] 4.1 mmol/L Normal 3.5-5.0 [facility] Comment on above: Result Comment: Note updated reference ranges. Note updated reference ranges. Performed By: #### C H8 #### [facility] [address], [place], Sodium [Moles/Vol] 137 mmol/L Normal 136-145 [facility] Comment on above: Result Comment: Note updated reference ranges. Performed By: #### C H8 #### [facility] [address], [place], Urea nitrogen [Mass/Vol] 13 mg/dL Normal 7-25 [facility] Comment on above: Result Comment: Note updated reference ranges. Performed By: #### C H8 #### [facility] [address], [place], Basic metabolic 2000 panelon 04-10-2023 Anion gap [Moles/Vol] 13 mmol/L 10 - 20 [facility] Calcium [Mass/Vol] 8.9 mg/dL 8.6 - 10. 3 mg/dL [facility] Comment on above: Note updated referen [...] CKD-EPI (S/P/Bld) [Vol rate/Area] 120 - PINF [facility] Comment on above: 2020 CKD EPI Equatio [...] Inclusion of Race in Diagnosing Kidney Disease. [place] Journal of Kidney Diseases 202;79(2):268-88.e1. 2. N Engl J Med 2021 Vol. 385 Issue 19 Pages [phone] Glucose [Mass/Vol] 87 mg/dL 74 - 109 mg/dL [facility] Potassium [Moles/Vol] 4.1 mmol/L 3.5 - 5.0 mmol/L [facility] Comment on above: Note updated referen ce ranges. Note updated reference ranges. Sodium [Moles/Vol] 137 mmol/L 136 - 145 mmol/L [facility] Comment on above: Note updated referen ce ranges. Urea nitrogen [Mass/Vol] 13 mg/dL 7 - 25 mg/dL [facility] Comment on above: Note updated referen ce ranges. CBC panel Auto (Bld)on 04-10 Erythrocyte distribution width (RBC) [Ratio] 13.9 % 11.5 - 14.5 % [facility] Hematocrit (Bld) [Volume fraction] 35.3 % Low 41.0 - 53.0 % [facility] Hemoglobin (Bld) [Mass/Vol] 11.8 g/dL Low 13.9 - 16.3 g/dL [facility] Interpretation and review of laboratory results Abnormal [facility] MCH (RBC) [Entitic mass] 29.5 pg 26.0 - 34.0 pg [facility] MCHC (RBC) [Mass/Vol] 33.5 g/dL 32.0 - 35.9 g/dL [facility] MCV (RBC) [Entitic vol] 88 fL 80 - 100 fL [facility] Platelet mean volume (Bld) [Entitic vol] 7.8 fL 7.5 - 11.2 fL [facility] Platelets (Bld) [#/Vol] 185 10*3/uL 150 - 400 K/uL [facility] RBC (Bld) [#/Vol] 4.00 10*6/uL Low [facility] WBC (Bld) [#/Vol] 9.8 10*3/uL 4.5 - 11.5 K/uL [facility] COMPLETE BLOOD COUNTon 04-10 Erythrocyte distribution width (RBC) [Ratio] 13.9 % Normal 11.5-14.5 [facility] Comment on above: Performed By: #### C BC #### S [facility] [address] [place] [address], Hematocrit (Bld) [Volume fraction] 35.3 % Low 41.0-53.0 [facility] Comment on above: Performed By: #### C BC #### [facility] [address], [place], Hemoglobin (Bld) [Mass/Vol] 11.8 g/dL Low 13.9-16.3 [facility] Comment on above: Performed By: #### C BC #### S [facility] [address], [place], MCH (RBC) [Entitic mass] 29.5 pg Normal 26.0-34.0 [facility] Comment on above: Performed By: #### C BC #### S [facility] [address], [place], MCHC (RBC) [Mass/Vol] 33.5 g/dL Normal 32.0-35.9 [facility] Comment on above: Performed By: #### C BC #### [facility] [address], [place], MCV (RBC) [Entitic vol] 88 fL Normal 80-100 [facility] Comment on above: Performed By: #### C BC #### S [facility] [address], [place], Platelet mean volume (Bld) [Entitic vol] 7.8 fL Normal 7.5-11.2 [facility] Comment on above: Performed By: #### C BC #### [facility] [address], [place], Platelets (Bld) [#/Vol] 185 10*3/uL Normal 150-400 [facility] Comment on above: Performed By: #### C BC #### [facility] [address], [place], RBC (Bld) [#/Vol] 4.00 10*6/uL Low 4.50-5.90 [facility] Comment on above: Performed By: #### C BC #### S [facility] [address], [place], WBC (Bld) [#/Vol] 9.8 10*3/uL Normal 4.5-11.5 [facility] Comment on above: Performed By: #### C BC #### [facility] [address], [place], Care Plan Noteon 04-10-2023 Account Manager Trainee Authentication Interface Message Text Problem: Routine Care: [...] achieved and maintained Outcome: Met Normal [facility] EKG 12 LEAD - PERFORMon 04-01 Diagnosis Sinus tachycardia Nonspecific T wave abnormality Abnormal ECG No previous ECGs available Confirmed by ROSALINA LIGHT ([id number]) on 04/10/2023 11:02:28 PM [facility] P wave Atrium by EKG 101 BPM [facility] P wave axis 40 degrees [facility] P-R Interval 150 ms [facility] Q-T interval 322 ms [facility] Q-T interval corrected 417 ms [facility] QRS axis 70 degrees [facility] QRS duration 104 ms [facility] T wave axis 10 degrees [facility] MAGNESIUMon 04-10-2023 Magnesium [Mass/Vol] 1.8 mg/dL Low 1.9-2.7 [facility] Comment on above: Result Comment: Note updated reference ranges. Performed By: #### C BC #### [facility] [address], [place], Interpretation and review of laboratory results Abnormal [facility] Magnesium [Mass/Vol] 1.8 mg/dL Low 1.9 - 2 .7 mg/dL [facility] Comment on above: Note updated referen ce ranges. No Panel Informationon 04-10 Interpretation and review of laboratory results Normal [facility] PHOSPHORUSon 04-10-2023 Phosphate [Mass/Vol] 4.4 mg/dL Normal 2.5-5.0 [facility] Comment on above: Result Comment: Note updated reference ranges. Performed By: #### C BC #### [facility] [address], [place], Phosphate [Mass/Vol] 4.4 mg/dL 2.5 - 5 .0 mg/dL [facility] Comment on above: Note updated referen ce ranges. Progress Noteson 04-10-2023 Account Manager Trainee Authentication Interface Message Text ---- GENERAL INFORMATION --- TRAUMA FLOOR - STAFF NOTE Patient Name: Eduarda Williamson Admission Date: 04/08/2023 Patient seen and examined on 04/10/23 -- INTERVAL HISTORY/EVENTS Background: Eduarda Williamson is a 32 year old male with no significant PMHx brought in by EMS as a transfer from [facility] following a fall from height. 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 -LOC -headstrike -AC/AP. [facility] imaging demonstrated a small R PTX, SMA [...] lbowel. Admitted to trauma [facility] for serial abdominal exams. RADHA splinted by ortho. Hospital Course: 04/08/2023: Fall from ht. Tx'd to [facility] from [facility] for serial abdominal exams and orthopedic consultation. 04/09: Abdominal exams benign. H/H stable. Admitted to Trauma [facility]. 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 No bowel injury/active extravasation. Serial abdominal exams stable. Passing flatus, tolerating clears - Advance to regular diet - Continue bowel regimen of senna, miralax, p (more content not included)... Normal [facility] XR FOREARM LEFT 2 VIEWSon XR [...] ewsOrdered By: Jean Carlos Phipps on 04-10-2023 [facility] Work Phone: BASIC METABOLIC PANELon Anion gap [Moles/Vol] 12 mmol/L Normal 10-20 [facility] Comment on above: Performed By: #### C H8 #### S PATHOLOGY LABORATORY [address] [place] [address], Calcium [Mass/Vol] 8.8 mg/dL Normal 8.6-10.3 [facility] Comment on above: Result Comment: Note updated reference ranges. Performed By: #### C H8 #### S [facility] [address] [place] [address], Chloride [Moles/Vol] 106 mmol/L Normal 98-107 [facility] Comment on above: Result Comment: Note updated reference ranges. Performed By: #### C H8 #### [facility] [address] [place] [address], CO2 [Moles/Vol] 25 mmol/L Normal 21-31 [facility] Comment on above: Result Comment: Note updated reference ranges. Performed By: #### C H8 #### S [facility] [address] [place] [address], Creatinine [Mass/Vol] 0.82 mg/dL Normal 0.70-1.30 [facility] Comment on above: Result Comment: Note updated reference ranges. Performed By: #### C H8 #### S [facility] [address] [place] [address], ESTIMATED GFR (CKD-EPI) 121 mL/min/1.73sqm Normal >=60 [facility] Comment on above: Result Comment: 2020 CKD EPI Equation using Creatinine without Race Comment: Estimated glomerular filtration rate (eGFR) is calculated without a race coefficient. Values should be interpreted in the context of the patient's full clinical presentation. Reference: 1. Atfi C, Frida M, Navdeep DC, et al.. A Unifying Approach for GFR Estimation: Recommendations of the NKF-ASN Task Force on Reassessing the Inclusion of Race in Diagnosing Kidney Disease. Maltese Journal of Kidney Diseases 202;79(2):268-88.e1. 2. N Engl J Med 1 Vol. 385 Issue 19 Pages 8900-0253 Performed By: #### C H8 #### S PATH[facility] LAB[facility]ATORY [address] [place] [address], Glucose [Mass/Vol] 103 mg/dL Normal 74-109 [facility] Comment on above: Performed By: #### C H8 #### S PATHOLOGY LABORATORY [address] [place] [address], Potassium [Moles/Vol] 4.3 mmol/L Normal 3.5-5.0 [facility] Comment on above: Result Comment: Note updated reference ranges. Note updated reference ranges. Performed By: #### C H8 #### S PATH[facility]ORATORY [address] [place] [address], Sodium [Moles/Vol] 139 mmol/L Normal 136-145 [facility] Comment on above: Result Comment: Note updated reference ranges. Performed By: #### C H8 #### S [facility] [address] [place] [address], Urea nitrogen [Mass/Vol] 14 mg/dL Normal 7-25 [facility] Comment on above: Result Comment: Note updated reference ranges. Performed By: #### C H8 #### S [facility] [address] [place] [address], Basic metabolic 2000 panelon 04-09-2023 Anion gap [...] Inclusion of Race in Diagnosing Kidney Disease. Maltese Journal of Kidney Diseases 2021;79(2):268-88.e1. 2. N Engl J Med 1 Vol. 385 Issue 19 Pages 5015-3555 Glucose [Mass/Vol] 103 mg/dL 74 - 109 [...] 12.7 g/dL Low 13.9 - 16.3 g/dL [facility] Interpretation and review of laboratory results [...] (RBC) [Ratio] 14.1 % Normal 11.5-14.5 [facility] Comment on above: Performed By: #### C BC #### [facility] [address] [place] [address], [id number] Hematocrit (Bld) [Volume fraction] 37.7 % Low 41.0-53.0 [facility] Comment on above: Performed By: #### C BC #### [facility] [address] [place] [address], Hemoglobin (Bld) [Mass/Vol] 12.5 g/dL Low 13.9-16.3 [facility] Comment on above: Performed By: #### C BC #### [facility] [address] [place] [address], MCH (RBC) [Entitic mass] 29.0 pg Normal 26.0-34.0 [facility] Comment on above: Performed By: #### C BC #### [facility] [address] [place] [address], MCHC (RBC) [Mass/Vol] 33.2 g/dL Normal 32.0-35.9 [facility] Comment on above: Performed By: #### C BC #### [facility] [address] [place] [address], MCV (RBC) [Entitic vol] 87 fL Normal 80-100 [facility] Comment on above: Performed By: #### C BC #### [facility] [address] [place] [address], Platelet mean volume (Bld) [Entitic vol] 7.3 fL Low 7.5-11.2 [facility] Comment on above: Performed By: #### C BC #### [facility] [address] [place] [address], Platelets (Bld) [#/Vol] 198 10*3/uL Normal 150-400 [facility] Comment on above: Performed By: #### C BC #### [facility] [address] [place] [address], RBC (Bld) [#/Vol] 4.31 10*6/uL Low 4.50-5.90 [facility] Comment on above: Performed By: #### C BC #### [facility] [address] [place] [address], WBC (Bld) [#/Vol] 10.8 10*3/uL Normal 4.5-11.5 [facility] Comment on above: Performed By: #### C BC #### [facility] [address] [place] [address], Erythrocyte distribution width (RBC) [Ratio] 14.3 % Normal 11.5-14.5 [facility] Comment on above: Performed By: #### C BC #### [facility] [address] [place] [address], Hematocrit (Bld) [Volume fraction] 38.2 % Low 41.0-53.0 [facility] Comment on above: Performed By: #### C BC #### [facility] [address] [place] [address], Hemoglobin (Bld) [Mass/Vol] 12.7 g/dL Low 13.9-16.3 [facility] Comment on above: Performed By: #### C BC #### [facility] [address] [place] [address], MCH (RBC) [Entitic mass] 29.1 pg Normal 26.0-34.0 [facility] Comment on above: Performed By: #### C BC #### [facility] [address] [place] [address], MCHC (RBC) [Mass/Vol] 33.3 g/dL Normal 32.0-35.9 [facility] Comment on above: Performed By: #### C BC #### [facility] [address] [place] [address], MCV (RBC) [Entitic vol] 88 fL Normal 80-100 [facility] Comment on above: Performed By: #### C BC #### [facility] [address] [place] [address], Platelet mean volume (Bld) [Entitic vol] 7.4 fL Low 7.5-11.2 [facility] Comment on above: Performed By: #### C BC #### [facility] [address] [place] [address], Platelets (Bld) [#/Vol] 208 10*3/uL Normal 150-400 [facility] Comment on above: Performed By: #### C BC #### S PATHOLOGY LABORATORY [address] [place], [place], RBC (Bld) [#/Vol] 4.37 10*6/uL Low 4.50-5.90 [facility] Comment on above: Performed By: #### C BC #### S PATHOLOG[facility] LABORATORY [address], [place], WBC (Bld) [#/Vol] 11.6 10*3/uL High 4.5-11.5 [facility] Comment on above: Performed By: #### C BC #### S PATHOLOGY LABORATORY [address], [place], Care Plan Noteon 04-09-2023 Account Manager Trainee Authentication Interface Message Text Problem: Routine Care: [...] will be met Outcome: Progressing Normal [facility] Consultson 04-09-2023 Account Manager Trainee Authentication Interface Message Text Expand All Collapse [...] in the fall. Charlee Coreas, PGY-4 Pager: [phone] Social Determinants of Health Financial Resource Strain: High Risk (12/04/2021) Received from [facility] Overall Financial Resource Strain (CARDIA) Difficulty of Paying Living Expenses: Hard Food Insecurity: Food Insecurity Present (12/04/2021) Received from [facility] Hunger Vital Sign Worried About Running Out of Food in the Last Year: Often true Ran Out of Food in the Last Year: Often true Transportation Needs: No Transportation Needs (12/04/2021) Received from [facility] PRAPARE - Transportation Lack of Transportation (Medical): No Lack of Transportation (Non-Medical): No No Known Allergies No current facility-administered medications for this encounter. Current Outpatient Medications: raNITIdine (ZANTAC) 75 MG tablet, Take 1 Tablet by mouth 2 times daily., Disp: 60 Tablet, Rfl: 3 ergocalciferol (DRISDOL) 1.25 MG (46710 UT) capsule, Take 1 Capsule by mouth [...] page: Ortho Hand Team: Flor Dunham, PGY4: [phone] Between 5pm-7am, week (more content not included)... Normal [facility] LACTIC ACIDon 04-09-2023 CR LACT 1.2 mmol/L Normal 0.5-1.6 [facility] Comment on above: Performed By: #### L ACT ####[facility] [id number] [place], [address] LACTIC ACIDOrdered By: Alisia Paris on 04-09-2023 Interpretation and review of laboratory results Normal [facility] Lactate [Moles/Vol] 1.2 mmol/L 0.5 - 1. 6 mmol/L [facility] Progress Noteson 04-09-2023 Account Manager Trainee Authentication Interface Message Text Division of Trauma, Surgical Critical Care, EGS Ticket to Roll Note . Provider Called Report To (Enter Provider Name, Service, and Time): Leandra Velázquez. Trauma Surgery. 1936, who is the RUP. The patient is transferring from ED, room # 48, to Trauma [address], room # 5-964. The patient was added to the Trauma Surgery list. Tiara Haji MD RUP = Receiving unit provider RNF = Regular nursing floor Normal [facility] Account Manager Trainee Authentication Interface Message Text --- GENERAL INFORMATION --- TRAUMA FLOOR - STAFF NOTE Patient seen and examined on 04/09/2023 Patient Name: Eduarda Williamson Admission Date: 04/08/2023 -- INTERVAL HISTORY/EVENTS Background: Eduarda Williamson is a 32 year old male (healthy) brought in by EMS as a transfer from [facility] after a fall from height. 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 Found [...] Jonathon Pineda MD PGY1 Trauma Surgery Pager: [phone] Teaching Physician Note: I saw and evaluated [...] and Emergency General Surgery Department of Surgery [facility] Pager: [phone] Normal [facility] Account Manager Trainee Authentication Interface Message Text Serial abdominal exam at this time: soft non tender without guarding or rebound and states abdominal pain is improving Hiro Porter, DO Normal [facility] Account Manager Trainee Authentication Interface Message Text Serial abdominal exam at this time: soft non tender without guarding or rebound Hiro Porter, DO Normal [facility] XR Radius and Ulna - left Vi ewson 04-09-2023 Radiology Study observation (narrative) [facility] ABO RH TYPEon 04-08-2023 ABO and Rh group Nom (Bld) Blood group O Rh(D) positive Normal [facility] Comment on above: Performed By: #### C BC #### [facility] [address] [place], [place], [facility] ABO/Rh Retypeon 04-08-2023 ABO/RH Recheck Result Positive Normal [facility] Comment on above: Result Comment: PERF ORMED BY: [facility] [address] [place] [address] PATHOLOGIST .NET DEVELOPER ZENY CURRIE M.D. AMYLASEon 04-08-2023 DEMETRICE 33 IU/L Normal 28-100 [facility] Comment on above: Performed By: #### C BC #### [facility] [address] [place], [place], Amylase [Catalytic activity/Vol] 33 U/L [facility] Activated partial thrombopla stin time (aPTT) in platelet poor plasma by coagulation aOrdered By: Leonides Walker on 04-08-2023 aPTT Coag (PPP) [Time] 27.4 s 25.1-36.5 [facility] Comment on above: A hematocrit value g reater than 55% may lead to inaccurate results in coagulation testing. Patients having hematocrit values >55% require a special collection tube for coagulation studies. Please contact the laboratory at [phone] for redraw instructions. AdmissionCareon 04-08-2023 Account Manager Trainee Authentication Interface Message Text AdmissionCare Guideline: Abdominal [...] AdmissionCare documentation entered by: Luis Eduardo Buenrostro [facility], 27th edition, Copyright ??? 2022 [facility] [employer] [facility] All Rights Reserved. [id number]:32:11-05:00 Normal [facility] Alanine aminotransferase [En zymatic activity/volume] in Serum or PlasmaOrdered By: Leonides Walker on 04-08-2023 ALT [Catalytic activity/Vol] 57 U/L 7-52 [facility] Albumin [Mass/volume] in Ser um or Plasma by Bromocresol green (BCG) dye binding methoOrdered By: Leonides Walker on 04-08-2023 Albumin BCG dye [Mass/Vol] 4.2 g/dL 3.5-5.7 [facility] Alkaline phosphatase [Enzyma tic activity/volume] in Serum or PlasmaOrdered By: Leonides Walker on 04-08-2023 ALP [Catalytic activity/Vol] 66 U/L 34-104 [facility] Amphetamine Screen Ql (U)Ord ered By: Leonides Walker on 04-08-2023 Amphetamines Ql (U) Negative Negative [facility] Aspartate aminotransferase [ Enzymatic activity/volume] in Serum or PlasmaOrdered By: Leonides Walker on 04-08-2023 AST [Catalytic activity/Vol] 41 U/L 13-39 [facility] BASIC METABOLIC PANELon Anion gap [Moles/Vol] 13 mmol/L Normal 10-20 [facility] Comment on above: Performed By: #### C H8 #### S PATHOLOGY LABORATORY [address] [place] [address], Calcium [Mass/Vol] 9.4 mg/dL Normal 8.6-10.3 [facility] Comment on above: Result Comment: Note updated reference ranges. Performed By: #### C H8 #### S PATH[facility] LABORATORY [address] [place] [address], Chloride [Moles/Vol] 106 mmol/L Normal 98-107 [facility] Comment on above: Result Comment: Note updated reference ranges. Performed By: #### C H8 #### S [facility] [address] [place] [address], CO2 [Moles/Vol] 26 mmol/L Normal 21-31 [facility] Comment on above: Result Comment: Note updated reference ranges. Performed By: #### C H8 #### S [facility] [address] [place] [address], Creatinine [Mass/Vol] 0.86 mg/dL Normal 0.70-1.30 [facility] Comment on above: Result Comment: Note updated reference ranges. Performed By: #### C H8 #### S PATH[facility] LABORATORY [address] [place] [address], ESTIMATED GFR (CKD-EPI) 119 mL/min/1.73sqm Normal >=60 [facility] Comment on above: Result Comment: 2020 [...] Inclusion of Race in Diagnosing Kidney Disease. [place] Journal of Kidney Diseases 2021;79(2):268-88.e1. 2. N Engl J Med 1 Vol. 385 Issue 19 Pages 5076-2345 Performed By: #### C H8 #### [facility] [address] [place] [address], Glucose [Mass/Vol] 106 mg/dL Normal 74-109 [facility] Comment on above: Performed By: #### C H8 #### [facility] [address] [place] [address], Potassium [Moles/Vol] 3.9 mmol/L Normal 3.5-5.0 [facility] Comment on above: Result Comment: Note updated reference ranges. Note updated reference ranges. Performed By: #### C H8 #### [facility] [address] [place] [address], Sodium [Moles/Vol] 141 mmol/L Normal 136-145 [facility] Comment on above: Result Comment: Note updated reference ranges. Performed By: #### C H8 #### [facility] [address] [place], [place], Urea nitrogen [Mass/Vol] 14 mg/dL Normal 7-25 [facility] Comment on above: Result Comment: Note updated reference ranges. Performed By: #### C H8 #### [facility] [address] [place], [place], Barbiturates [Presence] in U rine by Screen methodOrdered By: Leonides Walker on 04-08-2023 Barbiturates Screen Ql (U) Negative Negative [facility] Basic metabolic 2000 panelon 04-08-2023 Anion [...] Inclusion of Race in Diagnosing Kidney Disease. [place] Journal of Kidney Diseases 202;79(2):268-88.e1. 2. N Engl J Med 2020 Vol. 385 Issue 19 Pages 2740-9483 Glucose [Mass/Vol] 106 mg/dL 74 - 109 [...] 04-08-2023 Basophils (Bld) [#/Vol] 0.2 10*3/uL 0.0-0.2 [facility] Basophils/100 WBC Auto (Bld) Ordered By: Leonides Walker on 04-08-2023 Basophils/100 WBC (Bld) 1.5 % . [facility] Benzodiazepines Screen Ql (U )Ordered By: Leonides Walker on 04-08-2023 Benzodiazepines Ql (U) Negative Negative [facility] Benzoylecgonine [Presence] i n Urine by Screen methodOrdered By: Leonides Walker on 04-08-2023 Benzoylecgonine Screen Ql (U) Negative Negative [facility] Bilirubin.total [Mass/volume ] in Serum or PlasmaOrdered By: Leonides Walker on 04-08-2023 Bilirubin [Mass/Vol] 0.4 mg/dL 0.3-1.0 [facility] CBC WITH DIFFERENTIALon Basophils (Bld) [#/Vol] 0.08 10*3/uL Normal 0.00-0.20 [facility] Comment on above: Performed By: #### C BCDSAT ####[facility] [id number] [place], [place], Basophils/100 WBC (Bld) 0.3 % Normal <=1.9 [facility] Comment on above: Performed By: #### C BCDSAT ####[facility] [id number] [place], [place], Eosinophils (Bld) [#/Vol] 0.06 10*3/uL Normal 0.00-0.70 [facility] Comment on above: Performed By: #### C BCDSAT ####[facility] [id number] [place], Eosinophils/100 WBC (Bld) 0.3 % Normal 0.1-4.0 [facility] Comment on above: Performed By: #### C BCDSAT ####[facility] [id number] [place], [place], Erythrocyte distribution width (RBC) [Ratio] 14.2 % Normal 11.5-14.5 [facility] Comment on above: Performed By: #### C BCDSAT ####[facility] [id number] [place], [place], Hematocrit (Bld) [Volume fraction] 43.3 % Normal 41.0-53.0 [facility] Comment on above: Performed By: #### C BCDSAT ####[facility] [id number] [place], [place], Hemoglobin (Bld) [Mass/Vol] 14.1 g/dL Normal 13.9-16.3 [facility] Comment on above: Performed By: #### C BCDSAT ####[facility] [id number] [place], [place], Lymphocytes (Bld) [#/Vol] 2.14 10*3/uL Normal 1.00-4.80 [facility] Comment on above: Performed By: #### C BCDSAT ####[facility] [id number] [place] [address], Lymphocytes/100 WBC (Bld) 9.5 % Low 24.0-44.0 [facility] Comment on above: Performed By: #### C BCDSAT ####[facility] [id number] [place], [place], MCH (RBC) [Entitic mass] 28.6 pg Normal 26.0-34.0 [facility] Comment on above: Performed By: #### C BCDSAT ####[facility] [id number] [place], MCHC (RBC) [Mass/Vol] 32.6 g/dL Normal 32.0-35.9 [facility] Comment on above: Performed By: #### C BCDSAT ####[facility] [id number] [place], [place], MCV (RBC) [Entitic vol] 88 fL Normal 80-100 [facility] Comment on above: Performed By: #### C BCDSAT ####[facility] [id number] [place], MONOCYTE DISTRIBUTION WIDTH 18 Normal <=20 [facility] Comment on above: Performed By: #### C SALASDSAT ####[facility] [id number] [place], [place], Monocytes (Bld) [#/Vol] 1.30 10*3/uL High 0.20-1.00 [facility] Comment on above: Performed By: #### C BCDSAT ####[facility] [id number] [place], Monocytes/100 WBC (Bld) 5.8 % Normal 2.0-11.0 [facility] Comment on above: Performed By: #### C BCDSAT ####[facility] [id number] [place], [place], Neutrophils (Bld) [#/Vol] 18.95 10*3/uL High 1.50-8.00 [facility] Comment on above: Performed By: #### C BCDSAT ####[facility] [id number] [place], Neutrophils/100 WBC (Bld) 84.2 % High 31.0-76.0 [facility] Comment on above: Performed By: #### C BCDSAT ####[facility] [id number] [place], Platelet mean volume (Bld) [Entitic vol] 7.4 fL Low 7.5-11.2 [facility] Comment on above: Performed By: #### C BCDSAT ####[facility] [id number] [place], Platelets (Bld) [#/Vol] 245 10*3/uL Normal 150-400 [facility] Comment on above: Performed By: #### C BCDSAT ####[facility] [id number] [place], RBC (Bld) [#/Vol] 4.93 10*6/uL Normal 4.50-5.90 [facility] Comment on above: Performed By: #### C BCDSAT ####[facility] [id number] [place], WBC (Bld) [#/Vol] 22.5 10*3/uL High 4.5-11.5 [facility] Comment on above: Performed By: #### C BCDSAT ####[facility] [id number] [place], [address] Basophils (Bld) [#/Vol] 0.08 10*3/uL 0.00 - [...] [Mass/Vol] 14.1 g/dL 13.9 - 16.3 g/dL [facility] Interpretation and review of laboratory results [...] 84.2 % High 31.0 - 76.0 % [facility] Platelet mean volume (Bld) [Entitic vol] 7.4 fL Low 7.5 - 11.2 fL [facility] Platelets (Bld) [#/Vol] 245 10*3/uL 150 - 400 K/uL [facility] RBC (Bld) [#/Vol] 4.93 10*6/uL [facility] WBC (Bld) [#/Vol] 22.5 10*3/uL High 4.5 - 11.5 K/uL [facility] [facility] CT T-SPINE/L-SPINE W/O CONTR Rosie 04-08-2023 CT T-SPINE/L-SPINE W/O CONTRAST EXAMINATION: CT T-SPINE/L-SPINE W/O CONTRASTPRO/PRO 04/08/2023 05:42 PM CLINICAL HISTORY: Fall more than 10 feet ASSOCIATED DIAGNOSIS: Fall more than 10 feet ORDERING PROVIDER: [employer] TECHNOLOGISTS NOTE: COMPARISON: None TECHNIQUE: Thin axial [...] or lumbar spine. MACRO: None Normal [facility] CT Thoracic and lumbar spine WO contraston 04-08-2023 EXAMINATION: CT T-SPINE/L-SPINE W/O CONTRASTPRO/PRO 04/08/2023 05:42 PM CLINICAL HISTORY: Fall more than 10 feet ASSOCIATED DIAGNOSIS: Fall more than 10 feet ORDERING PROVIDER: [employer] TECHNOLOGISTS NOTE: COMPARISON: None TECHNIQUE: Thin axial [...] the thoracic or lumbar spine. MACRO: None [facility] CT Thoracic and lumbar spine WO contrastOrdered By: Jeancarlos Gonzalez on 04-08-2023 [facility] Work Phone: CT abdomen pelvis w conon CT abdomen pelvis w con [facility] [address] [place] [address] CT Scan Report Signed Patient: Eduarda Williamson MR#: [id number] : 1990 Acct:[id number] Age/Sex: 32 / M ADM Date: 04/08/23 Loc: ER Room: Type: PRE ER Attending Dr: Copies to: Leonides Walker DO Ordering Provider: Leonides Walker DO Date of Service: 04/08/23 CT/CT abdomen pelvis w con: traumatic injury ([id number]) CT/CT chest w con: traumatic injury CT [...] Naga Orlando M.D.04/08/2023 3:23 PM Dictation Location: [place] [address] Transcribed By: [facility] 04/08/23 1523 Dictated By: Naga Orlando II, MD 04/08/23 1506 Signed By: 04/08/23 1523 Normal [facility] CT cervical spine wo conon 0 04-08-2023 CT cervical spine wo con [facility] [address] [place] [id number] Scan Report Signed Patient: Eduarda Williamson MR#: [id number] : 1990 Acct:[id number] Age/Sex: 32 / M ADM Date: 04/08/23 Loc: ER Room: Type: PRE ER Attending Dr: Copies to: Leonides Walker DO Ordering Provider: Leonides Walker DO Date of Service: 04/08/23 CT/CT cervical spine wo con: traumatic injury ([id number]) CT/CT head/brain wo con: traumatic injury CT [...] Naga Orlando M.D.04/08/2023 3:06 PM Dictation Location: [place] [address] Transcribed By: AMADOR 04/08/23 1506 Dictated By: Naga Orlando II, MD 04/08/23 1452 Signed By: 04/08/23 1506 [facility] CTA CHEST/ABD/PELVIS W/on CTA CHEST/ABD/PELVIS W/ [...] from contrast bolus. MACRO: None Normal [facility] CTA Chest vessels and Abdomi nal vessels and Pelvis vessels W contrast IVOrdered By: Juan Daniel Hernandes on 04-08-2023 CT DLP 2532.7 (mGy.cm) [facility] Work Phone: CT Series Entire body,Entire body,Entire body,Entire body,Entire body [facility] Work Phone: CTDI VOL 5.3 (mGy),36.2 (mGy) ,12.3 (mGy),11.2 (mGy),12.3 (mGy) [facility] Work Phone: PHANTOM TYPE IEC Body Dosimetry Phantom,IEC Body Dosimetry Phantom,IEC Body Dosimetry Phantom,IEC Body Dosimetry Phantom,IEC Body Dosimetry Phantom [facility] Work Phone: [facility] Work Phone: CTA Chest vessels and [...] on 04-08-2023 Calcium [Mass/Vol] 9.4 mg/dL 8.6-10.3 [facility] Cannabinoids [Presence] in U rine by Screen methodOrdered By: Leonides Walker on 04-08-2023 Cannabinoids Screen Ql (U) Negative Negative [facility] Comment on above: These are unconfirme d results and should not be used for legal purposes. Drug Cut-Off Concentration: AMPH 1000 ng/mL SHIRLENE 200 ng/mL AJAY 200 ng/mL COCM 300 ng/mL OP 300 ng/mL PCP 25 ng/mL THC 20 ng/mL Carbon dioxide, total [Moles /volume] in Serum or PlasmaOrdered By: Leonides Walker on 04-08-2023 CO2 [Moles/Vol] 21.2 mmol/L 21.0-31.0 [facility] Chloride [Moles/volume] in S sha or PlasmaOrdered By: Leonides Walker on 04-08-2023 Chloride [Moles/Vol] 106 mmol/L 98-107 [facility] Complete Blood Count Auto Di ffon 04-08-2023 Basophils (Bld) [#/Vol] 0.2 10*3/uL Normal 0.0-0.2 [facility] Comment on above: Result Comment: PERF ORMED BY: [place] [address] PATHOLOGIST .NET DEVELOPER ZENY CURRIE M.D. Performed By: #### P T, CBC, CK, CMP, PTT, ETOH, LIPASE #### [address] Basophils/100 WBC (Bld) 1.5 % Normal . [facility] Comment on above: Performed By: #### P T, CBC, CK, CMP, PTT, ETOH, LIPASE #### [address] Eosinophils (Bld) [#/Vol] 0.1 10*3/uL Normal 0.0-0.45 [facility] Comment on above: Performed By: #### P T, CBC, CK, CMP, PTT, ETOH, LIPASE #### [address] Eosinophils/100 WBC (Bld) 1.2 % Normal . [facility] Comment on above: Performed By: #### P T, CBC, CK, CMP, PTT, ETOH, LIPASE #### [address] Erythrocyte distribution width (RBC) [Ratio] 13.8 % Normal 12.0-14.8 [facility] Comment on above: Performed By: #### P T, CBC, CK, CMP, PTT, ETOH, LIPASE #### [address] Hematocrit (Bld) [Volume fraction] 41.7 % Normal 38.8-50.0 [facility] Comment on above: Performed By: #### P T, CBC, CK, CMP, PTT, ETOH, LIPASE #### [address] Hemoglobin (Bld) [Mass/Vol] 13.9 g/dL Normal 13.0-17.0 [facility] Comment on above: Performed By: #### P T, CBC, CK, CMP, PTT, ETOH, LIPASE #### [address] Lymphocytes (Bld) [#/Vol] 3.9 10*3/uL Normal 1.00-4.8 [facility] Comment on above: Performed By: #### P T, CBC, CK, CMP, PTT, ETOH, LIPASE #### [address] Lymphocytes/100 WBC (Bld) 36.0 % Normal . [facility] Comment on above: Performed By: #### P T, CBC, CK, CMP, PTT, ETOH, LIPASE #### [address] MCH (RBC) [Entitic mass] 28.6 pg Normal 27.5-35.2 [facility] Comment on above: Performed By: #### P T, CBC, CK, CMP, PTT, ETOH, LIPASE #### [address] MCV (RBC) [Entitic vol] 85.5 fL Normal 83.5-101 [facility] Comment on above: Performed By: #### P T, CBC, CK, CMP, PTT, ETOH, LIPASE #### [address] Mean Corpuscular HGB Conc 33.4 g/dL Normal 32.5-35.6 [facility] Comment on above: Performed By: #### P T, CBC, CK, CMP, PTT, ETOH, LIPASE #### [address] Monocytes (Bld) [#/Vol] 0.7 10*3/uL Normal 0.0-0.8 [facility] Comment on above: Performed By: #### P T, CBC, CK, CMP, PTT, ETOH, LIPASE #### [address] Monocytes/100 WBC (Bld) 16.89 % Normal 0.00-20.00 [facility] Comment on above: Performed By: #### P T, CBC, CK, CMP, PTT, ETOH, LIPASE #### [address] Monocytes/100 WBC (Bld) 6.9 % Normal . [facility] Comment on above: Performed By: #### P T, CBC, CK, CMP, PTT, ETOH, LIPASE #### [address] Neutrophils (Bld) [#/Vol] 5.8 10*3/uL Normal 1.8-7.7 [facility] Comment on above: Performed By: #### P T, CBC, CK, CMP, PTT, ETOH, LIPASE #### [address] Neutrophils/100 WBC (Bld) 54.4 % Normal . [facility] Comment on above: Performed By: #### P T, CBC, CK, CMP, PTT, ETOH, LIPASE #### [address] NRBC% 0.1 /100{WBC} Normal 0-0.5 [facility] Comment on above: Performed By: #### P T, CBC, CK, CMP, PTT, ETOH, LIPASE #### [address] Platelet mean volume (Bld) [Entitic vol] 7.5 fL Normal 6.6-10.1 [facility] Comment on above: Performed By: #### P T, CBC, CK, CMP, PTT, ETOH, LIPASE #### [address] Platelets (Bld) [#/Vol] 270 10*3/uL Normal 150-450 [facility] Comment on above: Performed By: #### P T, CBC, CK, CMP, PTT, ETOH, LIPASE #### [facility] [address] RBC (Bld) [#/Vol] 4.88 10*6/uL Normal 3.90-5.60 [facility] Comment on above: Performed By: #### P T, CBC, CK, CMP, PTT, ETOH, LIPASE #### [facility] [address] WBC (Bld) [#/Vol] 10.7 10*3/uL High 4.1-10.5 [facility] Comment on above: Performed By: #### P T, CBC, CK, CMP, PTT, ETOH, LIPASE #### [facility] [address] [place] [address] Comprehensive Metabolic Pane airam 04-08-2023 Albumin [Mass/Vol] 4.2 g/dL Normal 3.5-5.7 [facility] Comment on above: Performed By: #### P T, CBC, CK, CMP, PTT, ETOH, LIPASE #### [address] Albumin/Globulin [Mass ratio] 1.8 {ratio} Normal [facility] Comment on above: Performed By: #### P T, CBC, CK, CMP, PTT, ETOH, LIPASE #### [address] ALP [Catalytic activity/Vol] 66 U/L Normal 34-104 [facility] Comment on above: Performed By: #### P T, CBC, CK, CMP, PTT, ETOH, LIPASE #### [address] ALT [Catalytic activity/Vol] 57 U/L High 7-52 [facility] Comment on above: Performed By: #### P T, CBC, CK, CMP, PTT, ETOH, LIPASE #### [address] Anion gap [Moles/Vol] 14.7 mmol/L Normal 6.0-15.0 [facility] Comment on above: Performed By: #### P T, CBC, CK, CMP, PTT, ETOH, LIPASE #### [facility] [address] [place] [address] AST [Catalytic activity/Vol] 41 U/L High 13-39 [facility] Comment on above: Performed By: #### P T, CBC, CK, CMP, PTT, ETOH, LIPASE #### [address] Bilirubin [Mass/Vol] 0.4 mg/dL Normal 0.3-1.0 [facility] Comment on above: Performed By: #### P T, CBC, CK, CMP, PTT, ETOH, LIPASE #### [address] Calcium [Mass/Vol] 9.4 mg/dL Normal 8.6-10.3 [facility] Comment on above: Performed By: #### P T, CBC, CK, CMP, PTT, ETOH, LIPASE #### [address] Chloride [Moles/Vol] 106 mmol/L Normal 98-107 [facility] Comment on above: Performed By: #### P T, CBC, CK, CMP, PTT, ETOH, LIPASE #### [address] CO2 [Moles/Vol] 21.2 mmol/L Normal 21.0-31.0 [facility] Comment on above: Performed By: #### P T, CBC, CK, CMP, PTT, ETOH, LIPASE #### [address] Creatinine [Mass/Vol] 0.91 mg/dL Normal 0.70-1.30 [facility] Comment on above: Performed By: #### P T, CBC, CK, CMP, PTT, ETOH, LIPASE #### [address] Creatinine Clr Calc Pharmacy 152.91 Normal [facility] Comment on above: Performed By: #### P T, CBC, CK, CMP, PTT, ETOH, LIPASE #### [address] [place] [address] [place] GFR/1.73 sq M.predicted MDRD (S/P/Bld) [Vol rate/Area] mL/min/{1.73_m2} [facility] Comment on above: Performed By: #### P T, CBC, CK, CMP, PTT, ETOH, LIPASE #### [facility] [address] Globulin (S) [Mass/Vol] 2.3 g/dL [facility] Comment on above: Performed By: #### P T, CBC, CK, CMP, PTT, ETOH, LIPASE #### [facility] [address] Glucose [Mass/Vol] 95 mg/dL Normal 70-100 [facility] Comment on above: Result Comment: [facility] Glucose Reference Range is dependent on time and content of last meal. Glucose of more than 200 mg/dL in a nonstressed, ambulatory subject supports the diagnosis of Diabetes Mellitus. ADA recommended reference range Performed By: #### P T, CBC, CK, CMP, PTT, ETOH, LIPASE #### [address] Potassium [Moles/Vol] 3.9 mmol/L Normal 3.5-5.1 [facility] Comment on above: Performed By: #### P T, CBC, CK, CMP, PTT, ETOH, LIPASE #### [facility] [address] Protein [Mass/Vol] 6.5 g/dL Normal 6.4-8.9 [facility] Comment on above: Performed By: #### P T, CBC, CK, CMP, PTT, ETOH, LIPASE #### [facility] [address] Sodium [Moles/Vol] 138 mmol/L Normal 136-145 [facility] Comment on above: Performed By: #### P T, CBC, CK, CMP, PTT, ETOH, LIPASE #### [address] Urea nitrogen [Mass/Vol] 13 mg/dL Normal 7-25 [facility] Comment on above: Performed By: #### P T, CBC, CK, CMP, PTT, ETOH, LIPASE #### [facility] [address] Creatine Kinaseon 04-08-2023 CK [Catalytic activity/Vol] 166 U/L Normal 30-223 [facility] Comment on above: Result Comment: PERF ORMED BY: [place] [address] PATHOLOGIST .NET DEVELOPER ZENY CURRIE M.D. Performed By: #### P T, CBC, CK, CMP, PTT, ETOH, LIPASE ####[place] [id number] [address] Creatine kinase [Enzymatic a ctivity/volume] in Serum or PlasmaOrdered By: Leonides Walker on 04-08-2023 CK [Catalytic activity/Vol] 166 U/L 30- [facility] Creatinine [Mass/volume] in Serum or PlasmaOrdered By: Leonides Walker on 04-08-2023 Creatinine [Mass/Vol] 0.91 mg/dL 0.70-1.30 [facility] Drug Screen,Urineon 04-08-19 24 Amphetamine Screen,Urine Negative Normal Negative [facility] Comment on above: Performed By: #### U RDS ####[place] [id number] [address] Barbiturate Screen,Urine Negative Normal Negative [facility] Comment on above: Performed By: #### U RDS ####[place] [id number] [address] Benzodiazepines Screen,Urine Negative Normal Negative [facility] Comment on above: Performed By: #### U RDS ####[address] Cannabinoid Screen,Urine Negative Normal Negative [facility] Comment on above: Result Comment: Thes e are unconfirmed results and should not be used for legal purposes. Drug Cut-Off Concentration: AMPH 1000 ng/mL SHIRLENE 200 ng/mL AJAY 200 ng/mL COCM 300 ng/mL OP 300 ng/mL PCP 25 ng/mL THC 20 ng/mL PERFORMED BY: [place] [address] PATHOLOGIST .NET DEVELOPER ZENY CURRIE M.D. Performed By: #### U RDS ####[facility] Cocaine Screen,Urine Negative Normal Negative [facility] Comment on above: Performed By: #### U RDS ####[facility] Opiate Screen,Urine Positive High Negative [facility] Comment on above: Performed By: #### U RDS ####[place] [id number] [address] Phencyclidine Screen,Urine Negative Normal Negative [facility] Comment on above: Performed By: #### U RDS ####[address] ECG 12 lead ECGon 04-08-2023 ECG 12 lead ECG [facility] [address] [place] [address] Electrocardiograph Report Signed Patient: Eduarda Williamson MR#: [id number] : 1990 Acct:[id number] Age/Sex: 32 / M ADM Date: 04/08/23 Loc: ER Room: Type: [facility] ER Attending Dr: Ordering Provider: Leonides Walker [...] sinus rhythm Confirmed by Leonides WALKER DO ([id number]) on 04/08/2023 4:53:54 PM Referred By: Electronically Signed By:Leonides WALKER DO Transcribed By: MUS Signed By Leonides Walker DO 0 04/08/23 1653 Normal [facility] ED Provider Noteson 04-08-19 Account Manager Trainee Authentication Interface Message Text -- Attestation signed [...] Patient origin: Transfer from outside facility - [employer] The history is provided by the Patient and F. Eduarda Williamson is a 32 year old male presenting to the ED for fall from 30ft. Patient was working on [employer] pole when he fell and landed on his back on concrete, denies LOC. 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 MLF reports patient tachycardic, otherwise vss en route. 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 Anticoagulation/Antiplatel et use: denies [...] rec (more content not included)... Normal [facility] ED Triage Noteson 04-08-2023 Account Manager Trainee Authentication Interface Message Text Prehospital Medications: TXA Dilaudid Zofran Normal [facility] Account Manager Trainee Authentication Interface Message Text 32 y/o M fall off telephone pole aprox 30 ft. Transfer from [facility] Normal [facility] ETHANOL, SERUMon 04-08-2023 Ethanol [Mass/Vol] mg/dL Normal None Detected [facility] Comment on above: Performed By: #### C H8 #### [facility] [address] [place], [place] [address], [address] Ethanol [Mass/Vol] mg/dL None Detected mg/dL [facility] Eosinophils Auto (Bld) [#/Vo l]Ordered By: Leonides Walker on 04-08-2023 Eosinophils (Bld) [#/Vol] 0.1 10*3/uL 0.0-0.45 [facility] Eosinophils/100 WBC Auto (Bl d)Ordered By: Leonides Walker on 04-08-2023 Eosinophils/100 WBC (Bld) 1.2 % . [facility] Erythrocyte distribution wid th Auto (RBC) [Ratio]Ordered By: Leonides Walker on 04-08-2023 Erythrocyte distribution width (RBC) [Ratio] 13.8 % 12.0-14.8 [facility] Ethanol [Mass/volume] in Ser um or PlasmaOrdered By: Leonides Walker on 04-08-2023 Ethanol [Mass/Vol] mg/dL [facility] Ethanol [Mass/Vol] TNP [facility] Comment on above: Test not performed Ethyl Alcohol Profileon Ethanol [Mass/Vol] mg/dL Normal [facility] Comment on above: Performed By: #### P T, CBC, CK, CMP, PTT, ETOH, LIPASE #### [facility] [address] [place] [address] [place] Percent Ethanol Not performed Normal [facility] Comment on above: Result Comment: PERF ORMED BY: [facility] [address] [place] [address] PATHOLOGIST .NET DEVELOPER ZENY CURRIE M.D. Performed By: #### P T, CBC, CK, CMP, PTT, ETOH, LIPASE #### [facility] [address] [place] [id number] [facility] Fresh Frozen Plasmaon 2023 Fresh Frozen Plasma ISSUED 04/08/23 1548 Normal [facility] Globulin Calc (S) [Mass/Vol] Ordered By: Leonides Walker on 04-08-2023 Globulin (S) [Mass/Vol] 2.3 g/dL [facility] Glucose [Mass/volume] in Ser um or PlasmaOrdered By: Leonides Walker on 04-08-2023 Glucose [Mass/Vol] 95 mg/dL 70-100 [facility] Comment on above: ADA recommended refe rence rangeRandom Glucose Reference Range is dependent on time and content of last meal. Glucose of more than 200 mg/dL in a nonstressed, ambulatory subject supports the diagnosis of Diabetes Mellitus. H AND Matty 04-08-2023 Account Manager Trainee Authentication Interface Message Text [facility] Department of Surgery Division of Trauma Surgery, Acute Care Surgery, Critical Care, and [place] TRAUMA SURGERY HISTORY AND PHYSICAL Eduarda Williamson [phone] BASIC INJURY INFORMATION: Level of activation: Category [...] in by EMS as a transfer from [facility] after a fall from height. Reports he [...] drug use Living status: Home Primary language: Russian Functional status: Independent Impairments: None Assistive Devices [...] miguel (more content not included)... Normal [facility] HEPATIC FUNCTION PANELon Albumin [Mass/Vol] 4.3 g/dL Normal 3.5-5.7 [facility] Comment on above: Order Comment: Note updated reference ranges. Performed By: #### C H8 #### [facility] [address] [place] [address], [phone] ALK 68 IU/L Normal 34-104 [facility] Comment on above: Order Comment: Note updated reference ranges. Performed By: #### C H8 #### [facility] [address] [place], [place], ALT [Catalytic activity/Vol] 70 U/L High 7-52 [facility] Comment on above: Order Comment: Note updated reference ranges. Performed By: #### C H8 #### [facility] [address] [place], [place], AST [Catalytic activity/Vol] 49 U/L High 13-39 [facility] Comment on above: Order Comment: Note updated reference ranges. Performed By: #### C H8 #### [facility] [address] [place], [place], Bilirubin [Mass/Vol] 0.4 mg/dL Normal 0.3-1.0 [facility] Comment on above: Order Comment: Note updated reference ranges. Performed By: #### C H8 #### [facility] [address] [place], [place], Bilirubin.direct [Mass/Vol] 0.08 mg/dL Normal 0.03-0.18 [facility] Comment on above: Order Comment: Note updated reference ranges. Performed By: #### C H8 #### [facility] [address] [place] [address], Protein [Mass/Vol] 6.6 g/dL Normal 6.0-8.3 [facility] Comment on above: Order Comment: Note updated reference ranges. Performed By: #### C H8 #### [facility] [address] [place] [address], Albumin [Mass/Vol] 4.3 g/dL 3.5 - 5.7 g/dL [facility] ALP [Catalytic activity/Vol] 68 U/L [facility] ALT [Catalytic activity/Vol] 70 U/L High [facility] AST [Catalytic activity/Vol] 49 U/L High [facility] Bilirubin [Mass/Vol] 0.4 mg/dL 0.3 - 1 .0 mg/dL [facility] Bilirubin.direct [Mass/Vol] 0.08 mg/dL 0.03 - 0.18 mg/dL [facility] Interpretation and review of laboratory results Abnormal [facility] Protein [Mass/Vol] 6.6 g/dL 6.0 - 8.3 g/dL [facility] Note updated referen ce ranges. [facility] HIV 1 and 2 Ab and HIV 1 p24 Ag panel IAon 04-08-2023 HIV 1+2 Ab+HIV1 p24 Ag IA Ql Non-Reactive Non-Reacti ve [facility] Comment on above: No laboratory eviden ce for HIV Infection. Negative result does not rule out acute HIV infection. If acute HIV infection is suspected, recommend ordering an HIV-1 RNA quanitification test. Interpretation and review of laboratory results Normal [facility] HIV Information: [place] Rev. code 3701.243(E): This information has been [...] release of HIV test results or diagnoses. [facility] HIV1 HIV2 AGAB SCRNon 2023 HIV AG-AB SCREEN Non-Reactive Normal Non-Reacti ve [facility] Comment on above: Order Comment: HIV I nformation: ???[place] Rev. code 3701.243(E):This information has been disclosed [...] C H8 #### [facility] [address] [place], [address] Hematocrit Auto (Bld) [Volum e fraction]Ordered By: Leonides Walker on 04-08-2023 Hematocrit (Bld) [Volume fraction] 41.7 % 38.8-50.0 [facility] Hemoglobin [Mass/volume] in BloodOrdered By: Leonides Walker on 04-08-2023 Hemoglobin (Bld) [Mass/Vol] 13.9 g/dL 13.0-17.0 [facility] INR in Platelet poor plasma by Coagulation assayOrdered By: Leonides Walker on 04-08-2023 INR Coag (PPP) [Relative time] 0.9 {INR} [facility] Comment on above: INR Therapeutic Rang [...] CR LACT 1.6 mmol/L Normal 0.5-1.6 [facility] Comment on above: Performed By: #### L ACT #### [facility] [address] [place] [address], LACTIC ACIDOrdered By: Thiago Landaverde on 04-08-2023 Interpretation and review of laboratory results Normal [facility] Lactate [Moles/Vol] 1.6 mmol/L 0.5 - 1. 6 mmol/L [facility] LIPASEon 04-08-2023 LIP 8 IU/L Normal <128 [facility] Comment on above: Performed By: #### C H8 #### [facility] [address] [place] [address], Lipase [Catalytic activity/Vol] 8 U/L [facility] - Blood bankon ABO and Rh group Nom (Bld) Blood group O Rh(D) positive [facility] LeukoReduced RBCon LeukoReduced RBC NOT AVAILABLE Normal [facility] Leukocyte Reduced RBCon Leukocyte Reduced RBC ASSIGNED Normal [facility] Comment on above: Result Comment: PERF ORMED BY: [facility] [address] [place] [address] PATHOLOGIST .NET DEVELOPER ZENY CURRIE M.D. Leukocytes [#/volume] correc sánchez for nucleated erythrocytes in Blood by Automated counOrdered By: Leonides Walker on 04-08-2023 WBC corrected for nucl RBC Auto (Bld) [#/Vol] 10.7 10*3/uL 4.1-10.5 [facility] Lipaseon 04-08-2023 Lipase [Catalytic activity/Vol] 16.0 U/L Normal 11.0-82.0 [facility] Comment on above: Result Comment: PERF ORMED BY: [place] [address] PATHOLOGIST .NET DEVELOPER ZENY CURRIE M.D. Performed By: #### P T, CBC, CK, CMP, PTT, ETOH, LIPASE #### [address] Lipase [Enzymatic activity/v olume] in Serum or PlasmaOrdered By: Leonides Walker on 04-08-2023 Lipase [Catalytic activity/Vol] 16.0 U/L 11.0-82.0 [facility] Lymphocytes Auto (Bld) [#/Vo l]Ordered By: Leonides Walker on 04-08-2023 Lymphocytes (Bld) [#/Vol] 3.9 10*3/uL 1.00-4.8 [facility] Lymphocytes/100 WBC Auto (Bl d)Ordered By: Leonides Walker on 04-08-2023 Lymphocytes/100 WBC (Bld) 36.0 % . [facility] MCH Auto (RBC) [Entitic mass ]Ordered By: Leonides Walker on 04-08-2023 MCH (RBC) [Entitic mass] 28.6 pg 27.5-35.2 [facility] MCHC Auto (RBC) [Mass/Vol]Or dered By: Leonides Walker on 04-08-2023 MCHC (RBC) [Mass/Vol] 33.4 g/dL 32.5-35.6 [facility] MCV Auto (RBC) [Entitic vol] Ordered By: Leonides Walker on 04-08-2023 MCV (RBC) [Entitic vol] 85.5 fL 83.5-101 [facility] Monocyte distribution width [Entitic volume] in Blood by AutomatedOrdered By: Leonides Walker on 04-08-2023 Monocyte distribution width Auto (Bld) [Entitic vol] 16.89 % 0.00-20.00 [facility] Monocytes Auto (Bld) [#/Vol] Ordered By: Leonides Walker on 04-08-2023 Monocytes (Bld) [#/Vol] 0.7 10*3/uL 0.0-0.8 [facility] Monocytes/100 WBC Auto (Bld) Ordered By: Leonides Walker on 04-08-2023 Monocytes/100 WBC (Bld) 6.9 % . [facility] Neutrophils Auto (Bld) [#/Vo l]Ordered By: Leonides Walker on 04-08-2023 Neutrophils (Bld) [#/Vol] 5.8 10*3/uL 1.8-7.7 [facility] Neutrophils/100 WBC Auto (Bl d)Ordered By: Leonides Walker on 04-08-2023 Neutrophils/100 WBC (Bld) 54.4 % . [facility] No Panel Informationon 04-08 Radiology Study observation (narrative) [facility] Interpretation and review of laboratory results Normal [facility] Interpretation and review of laboratory results Normal [facility] Radiology Study observation (narrative) [facility] No Panel InformationOrdered By: Leonides Walker on 04-08-2023 Estimated GFR (CKD-EPI) > 60.0 mL/Min [facility] Creatinine Clearance (Chem 152.91 [facility] Nucleated erythrocytes [Pres ence] in Blood by Automated countOrdered By: Leonides Walker on 04-08-2023 Nucleated RBC Auto Ql (Bld) 0.1 /100{WBC} 0-0.5 [facility] Opiates [Presence] in Urine by Screen methodOrdered By: Leonides Walker on 04-08-2023 Opiates Screen Ql (U) Positive Negative [facility] PARTIAL THROMBOPLASTIN TIMEo n 04-08-2023 aPTT Coag (Bld) [Time] 26 s Normal 25-37 Th e [facility] Comment on above: Performed By: #### C H8 #### [facility] [address] [place] [address], [id number] aPTT Coag (Bld) [Time] 26 s [facility] PROTHROMBIN TIME AND INRon 0 04-08-2023 INR Coag (PPP) [Relative time] 0.94 {INR} Normal 0.90-1.10 [facility] Comment on above: Performed By: #### C H8 #### [facility] [address], [place], PT Coag (PPP) [Time] 10.5 s Normal 9.7-12.9 [facility] Comment on above: Performed By: #### C H8 #### [facility] [address], [place], INR Coag (PPP) [Relative time] 0.94 {INR} 0.90 - 1.10 [facility] PT Coag (PPP) [Time] 10.5 s [facility] Partial Thromboplastin Timeo n 04-08-2023 aPTT Coag (Bld) [Time] 27.4 s Normal 25.1-36.5 [facility] Comment on above: Result Comment: A he matocrit value greater than 55% may lead to inaccurate results in coagulation testing. Patients having hematocrit values >55% require a special collection tube for coagulation studies. Please contact the laboratory at [phone] for redraw instructions. PERFORMED BY: [place] [address] PATHOLOGIST .NET DEVELOPER ZENY CURRIE M.D. Performed By: #### P T, CBC, CK, CMP, PTT, ETOH, LIPASE #### [facility] [address] [place] [address] Phencyclidine Screen Ql (U)O rdered By: Leonides Walker on 04-08-2023 Phencyclidine Ql (U) Negative Negative [facility] Platelet mean volume Auto (B ld) [Entitic vol]Ordered By: Leonides Walker on 04-08-2023 Platelet mean volume (Bld) [Entitic vol] 7.5 fL 6.6-10.1 [facility] Platelets Auto (Bld) [#/Vol] Ordered By: Leonides Walker on 04-08-2023 Platelets (Bld) [#/Vol] 270 10*3/uL 150-450 [facility] Potassium [Moles/volume] in Serum or PlasmaOrdered By: Leonides Walker on 04-08-2023 Potassium [Moles/Vol] 3.9 mmol/L 3.5-5.1 [facility] Progress Noteson 04-08-2023 Account Manager Trainee Authentication Interface Message Text [facility] Department of Surgery Division of Trauma Surgery, Acute Care Surgery, Critical Care, and [place] TRAUMA SURGERY HISTORY AND PHYSICAL Eduarda Williamson [id number] ASSESSMENT: Eduarda Williamson is a 32 year old male , with no significant PMH, who presents as a transfer from [facility] after a fall from 30ft from [employer]. INJURIES: 1. Stable 2.3 x 2.2 cm [...] for injury Kathryn Lee MD Normal [facility] Account Manager Trainee Authentication Interface Message Text CAT 2 Pt is a 32yo M presenting to ED via [employer] as transfer from [facility] s/p fall 30ft from ladder at work, L ulnar fracture, -thinners, -LOC. 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 Pt denies LOC. Pt was brought to [facility], where he was diagnosed with small R pneumothorax and L ulnar fracture. SW called pt's mother Lacho Williamson [phone] to provide update on pt status. Lacho is on the way to ED and will be visiting shortly. PLAN: Pending. RONALDO PenalozaW, COIN BOX COLLECTOR, MA ED Risk Management Director Normal [facility] Protein [Mass/volume] in Ser um or PlasmaOrdered By: Leonides Walker on 04-08-2023 Protein [Mass/Vol] 6.5 g/dL 6.4-8.9 [facility] Prothrombin Time INRon 04-08 INR Coag (PPP) [Relative time] 0.9 {INR} Normal [facility] Comment on above: Result Comment: INR [...] CBC, CK, CMP, PTT, ETOH, LIPASE #### [facility] [address] PT Coag (PPP) [Time] 10.6 s Normal 9.0-12.9 [facility] Comment on above: Result Comment: A he matocrit value greater than 55% may lead to inaccurate results in coagulation testing. Patients having hematocrit values >55% require a special collection tube for coagulation studies. Please contact the laboratory at [phone] for redraw instructions. Performed By: #### P T, CBC, CK, CMP, PTT, ETOH, LIPASE #### [facility] [address] Prothrombin time (PT)Ordered By: Leonides Walker on 04-08-2023 PT Coag (PPP) [Time] 10.6 s 9.0-12.9 [facility] Comment on above: A hematocrit value g reater than 55% may lead to inaccurate results in coagulation testing. Patients having hematocrit values >55% require a special collection tube for coagulation studies. Please contact the laboratory at [phone] for redraw instructions. RBC Auto (Bld) [#/Vol]Ordere d By: Leonides Walker on 04-08-2023 RBC (Bld) [#/Vol] 4.88 10*6/uL 3.90-5.60 [facility] Serum or plasma albumin/glob ulin mass ratioOrdered By: Leonides Walker on 04-08-2023 Albumin/Globulin [Mass ratio] 1.8 {ratio} [facility] Serum or plasma anion gap de terminationOrdered By: Leonides Walker on 04-08-2023 Anion gap [Moles/Vol] 14.7 mmol/L 6.0-15.0 [facility] Sodium [Moles/volume] in Ser um or PlasmaOrdered By: Leonides Walker on 04-08-2023 Sodium [Moles/Vol] 138 mmol/L 136-145 [facility] TYPE AND SCREENon 04-08-2023 ABO and Rh group Nom (Bld) Blood group O Rh(D) positive Normal [facility] Comment on above: Performed By: #### C H8 #### [facility] [address] [place] [address], ABO and Rh group Nom (Bld) No Previous Results Normal [facility] Comment on above: Performed By: #### C H8 #### [facility] [address] [place] [address], ABSC INT Negative Normal [facility] Comment on above: Performed By: #### C H8 #### [facility] [address], [place], ABO and Rh group Nom (Bld) Blood group O Rh(D) positive [facility] ABO and Rh group Nom (Bld) No Previous Results [facility] Blood group antibody screen Ql Negative [facility] Type and Screenon 04-08-2023 ABO and Rh group Nom (Bld) Blood group O Rh(D) positive Normal [facility] Comment on above: Result Comment: PERF ORMED BY: [facility] [address] [place] [address] PATHOLOGIST .NET DEVELOPER ZENY CURRIE M.D. Urea nitrogen [Mass/volume] in Serum or PlasmaOrdered By: Leonides Walker on 04-08-2023 Urea nitrogen [Mass/Vol] 13 mg/dL 7-25 [facility] WBC Auto (Bld) [#/Vol]Ordere d By: Leonides Walker on 04-08-2023 WBC (Bld) [#/Vol] 10.7 10*3/uL 4.1-10.5 [facility] XR CHEST AP OR PA 1 VIEWon 0 04-08-2023 XR CHEST AP OR PA 1 VIEW EXAMINATION: XR CHEST AP OR PA 1 VIEW 04/08/2023 06:51 PM CLINICAL HISTORY: preop clearance ASSOCIATED DIAGNOSIS: preop clearance ORDERING PROVIDER: ABDELRAHMAN MARIE TECHNOLOGISTS NOTE: COMPARISON: CTA CHEST/ABD/PELVIS W/ 04/08/2023, 5:44 [...] cardiopulmonary abnormality identified. MACRO: None Normal [facility] Chest Single viewon 04-08 EXAMINATION: XR CHES T AP OR PA 1 VIEW 04/08/2023 06:51 PM CLINICAL HISTORY: preop clearance ASSOCIATED DIAGNOSIS: preop clearance ORDERING PROVIDER: ABDELRAHMAN MARIE TECHNOLOGISTS NOTE: COMPARISON: CTA CHEST/ABD/PELVIS W/ 04/08/2023, 5:44 [...] No acute cardiopulmonary abnormality identified. MACRO: None Michele Bañuelos M D - 04/08/2023 EXAMINATION: XR CHEST AP OR PA 1 VIEW 04/08/2023 06:51 PM CLINICAL HISTORY: preop clearance ASSOCIATED DIAGNOSIS: preop clearance ORDERING PROVIDER: ABDELRAHMAN MARIE TECHNOLOGISTS NOTE: COMPARISON: CTA CHEST/ABD/PELVIS W/ 04/08/2023, 5:44 [...] No acute cardiopulmonary abnormality identified. MACRO: None [facility] XR ELBOW LEFT MINIMUM 3 VIEW Son [...] body. Left elbow MACRO: None Normal [facility] XR Elbow - left Viewson EXAMINATION: [...] radiopaque foreign body. Left elbow MACRO: None [facility] XR WRIST LEFT MINIMUM 3 VIEW Son [...] body. Left wrist MACRO: None Normal [facility] XR Wrist - left 3 Viewson EXAMINATION: XR WRIS T LEFT MINIMUM 3 VIEWSPRO/LT 04/08/2023 06:51 PM CLINICAL HISTORY: fall from height ASSOCIATED DIAGNOSIS: ORDERING PROVIDER: ADALI HIDALGO TECHNBEE NOTE: COMPARISON: None IMPRESSION: No acute left [...] radiopaque foreign body. Left wrist MACRO: None [facility] XR Wrist - left 3 ViewsOrder ed By: Michele Joseph on 04-08-2023 [facility] Work Phone: XR femur RT 2V*on 04-08-2023 XR femur RT 2V* [address] [address] XRay Report Signed Patient: Eduarda Williamson MR#: [id number] : 1990 Acct:[id number] Age/Sex: 32 / M ADM Date: 04/08/23 Loc: ER Room: Type: [facility] ER Attending Dr: Copies to: Leonides Walker [...] Naga Orlando M.D.04/08/2023 3:35 PM Dictation Location: [place] [address] Transcribed By: [facility] 04/08/23 1535 Dictated By: Naga Orlando II, MD 04/08/23 1534 Signed By: 04/08/23 1535 Normal [facility] XR forearm LT 2V*on 04-08-19 XR forearm LT 2V* [facility] Main [address] [address] XRay Report Signed Patient: Eduarda Williamson MR#: [id number] : 1990 Acct:[id number] Age/Sex: 32 / M ADM Date: 04/08/23 Loc: ER Room: Type: [facility] ER Attending Dr: Copies to: Leonides Walker [...] Naga Orlando M.D.04/08/2023 4:17 PM Dictation Location: [place] [address] Transcribed By: [facility] 04/08/231616 Dictated By: Naga Orlando II, MD 04/08/231614 Signed By: 04/08/23 1617 Normal [facility] XR hip RT min 2V(w/wo pelvis )*on 04-08-2023 XR hip RT min 2V(w/wo pelvis)* [place] [address] XRay Report Signed Patient: Eduarda Williamson MR#: [id number] : 1990 Acct:[id number] Age/Sex: 32 / M ADM Date: 04/08/23 Loc: ER Room: Type: [facility] ER Attending Dr: Copies to: Leonides Walker [...] Naga Orlando M.D.04/08/2023 3:44 PM Dictation Location: [place] [address] Transcribed By: [facility] 04/08/23 1544 Dictated By: Naga Orlando II, MD 04/08/23 154 Signed By: 04/08/23 154 [facility] Coding Summary.on 11-13-2020 Coding Summary. [id number] Gh0bWw +PGhlYWQ+LQ0BKCSwZ36caMAtv B1XZ4qSLV0ENZWKNGULQP3VJT3 xeJR7TPwaL4KpoaCa ClgtzVMzSQ13JWt0ROH8mUdaAG zlaD6rjDUlB4d7TqQgAF72vI05 JOwbAGFgRuQ8WhHhgjoosXQg F6woByTcqAXoLzh+PHRhYmxlIH xpVRWhWUhiVFYpPzUomByiRL5o Ka9jDBWjZJOycXzssGCrXiNn n1sgPTIgQYgqTN0saQmiO2QmgU B9GALpz0x7Xz68bPI+PHRkIHN0 dCdkEQdog410KyPid2kaFBF4 xWYbMUlhHGL4K25pq8S5GJUvEI KfODQ2wSK3sV3udLilyscxK3Yh dFGmMbM2TPX8nIUvnT0fkOmw unvqtF4aAkw+P12FSO5NXFQLPF 5LIxq1Q0WkEjmroSZ+DS15DAUf XY53tFApyQDhz0bcgRh7XjIr GYQpEXB5uAipTVrtb8YtJOKdD1 7agNSyl0B7GZGxzRkudOCjHlCf lYW9dL9jDSgzhkdfz3jyowwj Vgqux0uohy10vB15B29wWUqpKX RaHXQ4NCOrKLDywKiwtb7qlD9n Ii8+NTfdd1crd0qagWe7RbFh WIMcvwLjhAxlWVU0t8VrJo81K0 RqiUtau2RkStf3rx26sJLxq1G7 qOW3ENtuODYcoI9hVTfqAyU8 HGBiLzPruB15dKDnKWryKd1dxG bmxXrgXG9qRGFcvkwyKOCaqV8a ZGTlnBPljNrvKK9qTWBydrdh j217KoAjXGL5SXHsdYKlB1YnzV 5nNiSsTBCwPRUiU0VyoXTkNThd I181BCfuVdZ9RMDkocDdR2My LYSauUrpOzA7c4D5Rh5Gx1Ntag czRUJ6XHvaJRF5IqR5BfOvLeF8 R7BoRid1ABKjuVudSU1rS5Hy DSZlabnofnvjyNA9YIJpLFMevV 41rQWzWXhdXy7ke7G0v710XUDs COBdcU65Iv8gcVepDSIbqJVP xM6mjgazx3jigevzRwRbZJDzMD b3JQl3CEUcpVvuMhEaSPM2EvE3 ARN3lOOsfU0weFuuavipzU0q Oyc+A39jiC9wTBN5QQH6xrieVU ApqqVwRB74PD45W5QnWvvdqVEu bGU+YCYsqkTfdQesVB3cVuBn x5izi4ClSDdoD4WjCKPbNVilAq u5ENVgQIW4dIK7aB3mVGLyBAkc k9L1zAP0T8FznwBsth0op6rf QZZkPKagX61xnLSgb1G7GLUevY D2MENmeRugSuPdxQ63Fjn+PGNv lFjef4PrEriit7rtp7mfdTp8 IrTnZVXmxkErjCihFDT3q9MzKv 87P93tPMxgTDIhYRRaXWGvCJRh lZnkif0bjM9sCq0+PGNvbCB3 aOC3hV0cBTRqUhY1DLsiX837Mg EoaVLmXmgex4yug2fiaXg8UjTs ZAImifTlwFxhJFD9f0IyKv31 K84fSWsvIGRnTEDaAUQxFFZtwY gdjo0gnD6wIl1+QL8ey7coqb78 dK13bTN+NUUuUUT7qGakEQip RXOsgO2rRKyyWtF1HPXyWnOhdS 17jEFxWAssAm5pbCeurFdlIQ8k AJLebwgac288UkLak6arENGa mJWtNEgpBSQ0C27it3W1WMVbFI NrTVK3jFJ3xL4ivVatooslzNXb gNzxwrGcvVagGOxeZKqlL693 IHRvcDsnPlBhdGllbnQgTmFtZT x8U9KjNhm7MHTknYxmBL4rbMKz HNlnTp3zxZrqdNuaBI5jIRQm ipdzz331KoNnb5udYUWgvGDnGR fnRED3N66la7H2GJHeULOgRHZ2 kCD1vZ0xrIaiqazgkJVwmUkq huBsmDgyFGgaPRrqL048PCIlbV aoVjDxinFmWQGujLZ0HE97YK63 aIZsl9O3lDZ7J3FzFFHqmafw lnsogWO2UQPuNIWxlD84Vp0qmO blSw4lGVLqTII1MEGpfULnQ1Lg oM7pLeDvNZThNKOyQ6IxpWBy EQcmX548WRhpYaR8VQNrigQvM4 IaDZWeyHtdRnL5t1G9Dt1XV2V7 IA25JV76qXZjz9C7lGQ1H5Qv ZQCpkkkazjysrSR2LRRvSZHsmA 57Zh5heGohOw0uZMJeFZT0VBEf pQIvJ8EjjY0rBaFpZWFrYYIi O6WuhKNoWFgoI788NNxvEvZ4XQ GxvkMsN5NyQJQdgGgyOvT3f7A5 Eu2DYTg3FX09AP52uRLmt9Z9 oRG0L1WcAYVtqontpppozLN8QM NbIADkfI02Zf7zdTckIq2rJKRi OEA3YYBchTKqP3LwzC4iWsAg IAHqLEKrG9XigMVqNYwyJ224UW szFeN2EREzjtJeE6TvESHmqGel TtT2j4O9Oz5VRDAcUZ92FLA7 vPC4FJ63ZX93B1GsQorylGZqzD U+PHRhYmxlIHdpZHRoPScxMDAl RzLswJemKC7vNt3aJTMoOLBg rAwcwKWnYhUvy9orMPWmOJgyKP 7axMvpB0VczJE2VITsi1q8Oa98 M45yS5PptMX+WIQohQP5aAF3 kD4fQqZgCyQ5DUorG297JxLszB ExNxwqx8qxi3jesTe0CtN5TLUx ikPjbEcoZMG9t8KkPl26N50k IHdpZHRoPSIxNSUiIHZhbGlnbj 1fyP2fHb1+BLPsoDQ9zFH4lQ0o RqXiJdL0HNwrB866BkGozTZo Juatm3xsu8rgrMl9SnGlGFYjto FmeVnpTJG0j9WjVt11N3PzhRmg s9OkNmw4pf91iBTkk6K6uFV3 X2JmKPJozhmpiWGiuGqlFM4qLK PmhmvlZRPzkX6lWCGwC4j2CuWb TyX3TIruP5GlfiP3RUDuiQKk BEtwUIZ3H06ld7D0JHLqBZBgHM T8cHD9cA4btXxwsialjBXsuJao bnXazDtkRCnyRHmzW612MURd bQtzXYXkbJ4lCDZicZFceKlbNB 4eHGNgexejXncCMEkLN8akAOrK RNBAWKn2Y1MnLbg5ZQAjpVbd IM2reIAkCLuzRp5rlRdjwGprEJ 1iHIGcdspfGUBdqD2rUXMozHDq yCydEZ3oBCNjpgsjr011AyXk KMM6ZSPiwRUkA8HluK3mYbKoPQ NuXBKfC8BgxLRxTEbdA335UVle VlU7TSKjsjWfZ8TrKMDdoZwo WiF7a1I6Mc7oAV8dSM4gGGdaUL 28AC55gYLcf0L0vOO5N5ClUDVt wqiiednnlTJ9UTOfASQgiE82 pHRwRVlzRr7fe7P4h333OVOxOH WpbW51Rh0buQjtCINfcSFWiF9w hzkbk4vbovybRcLxVNNgIWg4 WBh6IKKusLbhWgXeCRI4UrP3VS M6tSYzvK2fnQjnzfjfnG5sWem+ ZpkgBQUnlkZ7S7PfWyk5LEVj mJlhXN1feQSaJDhxMt0ftFyvfY xhGH2eSYCqozmiFLXoxK2nQREz kUQecHbgTL7fEGFcfoaeg646 DcFbDYH5MQOkhTOuB1XiuL6jMo ZhQAOwJUAyE7KopGZgSRmnM907 ZLwfIbU5BCDpuoIjS4XoFWOc hIeqAfU0f4O9Zb5MGLxySG65EH 21fRQzc1W0cQE3U5UuWDGvbkux vjycmGJ5TXYgCXCegS62nWJn CNofTq1lb5I9l234UYRyZSGkfO 88Ca8gfDhsXOHfbADNiV3smftq z5xmvrrcIyLoEXZqPXf8DAc8 LGWtqUfgGaIwWVU0DeV9QGA5oG YpbJ0ymSddquaftB4oCse+RW1l gwgetuH2VK86VD06X4HzQmqe dGFibGU+PHRhYmxlIHdpZHRoPS qlJVZmXsNunSjsSE8eWb0zGEXv YFUipGwjtQIaNcMfv1iaAORx VSddLM1jtAdtF1KnkEX2NUVxo5 c7Lk44O73xI2UpdUF+PGNvbCB3 tJK0oJ8vViHlFpQ3GKxoE280 FfPcvQNlJtksv0rfa8xvwLh4Fd ImRBNkayVsjOnfTUI6n7MsFs04 Y37cCFqdIJAySWIeDAFmSPCr sPdugj3tmE3dKl9+PSNvhGJ5cA K6sG5aIcCuDtR5UMkyY809NsUf yABoFlgxJ97zA2PanKK+PHRy Ahs1MNUsfUgsIO7mrAQkAKwdBc 4tFZC3RmLtVjAyMYynW7LkHWFh ctlheraulLT8CABlRWPwpN16 Ng4paLkaZm0tRYHvVWB4DOQamJ UkM2TtjV3eYsVrFCWpNYQtU9Nl oWByXFiqF014LObzEgR1YDCq uyWiX4XhTRLdwXrhXqJ2m7Y2Cx 8LsHhrjYLuPM4wNfGnTVc1F1La Skr5NWSyrOquNR0iyZWnYFha Kh0zkRypwCeuWJ8bQWPpdmdgi5 05WhHui0ehVZKpwIXyBXfpPOQ2 W03hq4I6RIEjPNMkOYF2iWG9 cZ2qdEfykwiiqFDtpRwybeUunO yuYDtePFaeQ703SOPlwDbzMeGJ Ysl6S5NyHrc2RHKntEumFS2y qFSwGGlsVa6bxYjtfKmfWJ7dXF Reibimv102PqOch6snKIXqwDVs DZcwPBY1P64yg4L5GLFsTRUr OZK1pMM0yM0jjUlkjbnokZGjjF dgsnLdnEvzYOgwIGgnP184SIJg xExiDc5ZGpu8Y2ZyEho1DGFt mMtuLO5fvIIiWKwaOf0peSvkzE oyNU7zFWSzinmwi027JtNqg4eb HOAocWBrDOjlXCJ7N98hz0I9 JIQyEDOfEKH3gHB8tH2cxPbsev ogbGVmdDsgdmVydGljYWwtYWxp D145XEQaaQniQnNpmXRtAcen dGQ+AL65xg75X1JlDdcrWtk1AH DjZLJ4eHD4rE7fWMAqMRzvj9M1 lKS8D0DnjhHxjk3co3rmRMQq [employer] (more content not included)... Normal [facility] Discharge Instructionson Discharge Instructions [id number]:127 Normal [facility] ED Note-Physicianon 11-10-19 [...] Chronic sinusitis, unspecified) Orders: Rapid COVID Antigen ([facility]) Disposition Plan Patient Discharge Condition Disposition: Discharged home Condition: Improved and stable Counseled: Patient and/or family were counseled to workup, results, treatment plan and follow-up recommendations Discharge Prescription List Prescriptions No active prescription medications Follow-up With When Contact Information Tito Whitney In 3 days 11/11/2020 EDT [facility] [place] [address]- Business (1) Additional Instructions: Patient Education COVID-19 Attestation Patient seen and evaluated by the physician library technical assistant. Attending physician was present in the emergency department and supervised care. This report was transcribed using voice recognition software. Every effort was made to ensure accuracy, however, inadvertently computerized distributor sales manager mistakes may be present. Appropriate healthcare PPE [...] By: Rinku Ruiz PA-C\.br\Date and Time Signed: 11/08/20 19:11 EDT\.br\Electronically Co-Signed By: Vrigilio Song DO\.br\Date and Time Co-Signed: 11/08/20 22:00 EDT Consent for Treatmenton 10-30 Consent for Treatment [id number]:127 Normal [facility] ED Clinical Summaryon 2020 ED Clinical Summary (Inserted Image. Natalee ble to display) [place] [id number] ED Clinical Summary Person Information Name: EDUARDA WILLIAMSON [facility] Age: 29 Years : 1990 Sex: Male Language: Russian PCP: Tito Whitney MD Marital Status: Phone: [phone] Visit Id: Visit Reason: Cough; Sinus Pain/Congestion; [...] 11/08/2020 19:16:14 11/08/2020 19:16:14 11/08/2020 19:16:14 ADDRESS: [address] [place] [id number] PHYS DOC NOTES: MEDICAL INFORMATION: Prescriptions Given: PATIENT EDUCATION INFORMATION: Instructions: COVID-19 Follow up: With: Address: When: Tito Whitney [address] [place] [address], [facility] [place] [address] Business (1) In 3 days 11/11/2020 DIAGNOSIS: Sinusitis Normal [facility] ED Patient Summaryon ED Patient Summary (Inserted Image. Natalee ble to display) [address] [address] Patient Discharge Instructions Person Information Name: EDUARDA WILLIAMSON Age: 29 Years Arrival Date: 11/08/2020 18:37:36 Discharge Diagnosis: Sinusitis Primary Care Physician: Tito Whitney MD Provider Information Primary Provider: Virgilio Song DO [facility] Bluer:Rinku Ruiz PA-C The exam and treatment you received in the Emergency Department were for an urgent problem and are not intended as complete care. It is important that you follow up with a doctor, nurse practitioner, or physician?s library technical assistant for ongoing care. If your symptoms [...] Follow-up Instructions: With: Address: When: Tito Whitney [facility] [facility], [address] [place] [id number] Business (1) In 3 days 11/11/2020 In the event that this physician does not participate in your insurance network, please consult with your insurance company to find a nearby participating provider. Patient Education Materials: COVID-19 A MESSAGE TO ALL PATIENTS REGARDING OPIOIDS PRESCRIPTION OPIOIDS: WHAT YOU NEED TO KNOW Prescription opioids can be used to help relieve ytbyxrnx-os-knrmpv pain and are often prescribed following a [...] be struggling with addiction, tell your health director of career services and ask for guidance or call [facility] National Helpline at 8-011-204-QPOJ. j Source: [place] Department of Health (more content not included)... Normal [facility] Rapid COVID Antigen ([facility])on 11-08-2020 Rapid COV Int NEG Ctl Pass Normal [facility] Comment on above: Performed By: #### 2 [id number] #### [facility] [address] [place] [address] Rapid COV Int POS Ctl Pass Normal [facility] Comment on above: Performed By: #### 2 [id number] #### [facility] [address] [place] [address] SARS-CoV-2 (COVID-19) RNA SYDNEY+probe Ql (Unsp spec) Detected Abnormal Not Detected [facility] Comment on above: Result Comment: Resu lts Called To Chandana Gonzales/Rk By ALL And Read Back For Confirmation On 11/08/2020 19:31:35 EDT Faxed to Barry 11/08/2020 19:31:40 EDT. The [employer] Veritor? System for Rapid Detection of SARS-CoV-2 [...] or revoked sooner. Performed By: #### 2 [id number] #### [facility] [address] [place] [id number] Employed in Healthcare NO Normal [facility] Comment on above: Performed By: #### 2 [id number] #### [facility] [address] [place] [address] First Test Unknown Normal [facility] Comment on above: Performed By: #### 2 [id number] #### [facility] [address] [place] [address] Hospitalized? Unknown Normal [facility] Comment on above: Performed By: #### 2 [id number] #### [facility] [address] [place] [address] ICU NO Normal [facility] Comment on above: Performed By: #### 2 [id number] #### [facility] [address] [place] [address] ? NO Normal [facility] Comment on above: Performed By: #### 2 [id number] #### [facility] [address] [place] [id number] Resides in a [facility] Care Setting NO Normal [facility] Comment on above: Performed By: #### 2 [id number] #### [facility] [facility] [address] [place] [address] Symptomatic as defined by CDC YES Normal [facility] Comment on above: Performed By: #### 2 [id number] #### [facility] [address] [place] [address] Vital Signs Date Time Vital Sign Value Performing Clinician Facility 04-14-2023 16:36-0500 Diastolic blood pressure 76 mm[Hg] Carmela Guevara MD Work Phone: [facility] 04-14-2023 16:36-0500 Heart rate 90 /min Carmela Guevara MD Work Phone: [facility] 04-14-2023 16:36-0500 Respiratory rate 16 /min Carmela Guevara MD Work Phone: [facility] 04-14-2023 16:36-0500 SaO2% (BldA) [Mass fraction] 100 % Carmela Guevara MD Work Phone: [facility] 04-14-2023 16:36-0500 Systolic blood pressure 129 mm[Hg] Carmela Guevara MD Work Phone: [facility] 04-14-2023 16:15-0500 Body temperature 97.7 [degF] Carmela Guevara MD Work Phone: [facility] 04-14-2023 12:06-0500 Body height 188 cm Carmela Guevara MD Work Phone: [facility] 04-14-2023 12:06-0500 Body mass index (BMI) [Ratio] 29.4 kg/m2 Carmela Guevara MD Work Phone: [facility] 04-14-2023 12:06-0500 Body weight 103.87 kg Carmela Guevara MD Work Phone: [facility] 04-11-2023 05:09-0500 Body temperature 97.7 [degF] Jarrod Chandler MD Work Phone: [facility] 04-11-2023 05:09-0500 Diastolic blood pressure 76 mm[Hg] Jarrod Chandler MD Work Phone: [facility] 04-11-2023 05:09-0500 Heart rate 76 /min Jarrod Chandler MD Work Phone: [facility] 04-11-2023 05:09-0500 Respiratory rate 15 /min Jarrod Chandler MD Work Phone: [facility] 04-11-2023 05:09-0500 SaO2% (BldA) [Mass fraction] 95 % Jarrod Chandler MD Work Phone: [facility] 04-11-2023 05:09-0500 Systolic blood pressure 136 mm[Hg] Jarrod Chandler MD Work Phone: [facility] 04-10-2023 23:08-0500 Heart rate 101 /min Jarrod Chandler MD Work Phone: [facility] 04-10-2023 10:00-0500 Body height 188 cm Jarrod Chandler MD Work Phone: [facility] 04-10-2023 10:00-0500 Body mass index (BMI) [Ratio] 29.44 kg/m2 Jarrod Chandler MD Work Phone: [facility] 04-10-2023 10:00-0500 Body weight 104.02 kg Jarrod Chandler MD Work Phone: [facility] 04-08-2023 16:00-0500 Diastolic blood pressure 94 mm[Hg] DO Leonides Keister Work Phone: [facility] 04-08-2023 16:00-0500 Heart rate 91 /min DO Leonides Keister Work Phone: [facility] 04-08-2023 16:00-0500 Respiratory rate 18 /min DO Leonides Walker Work Phone: [facility] 04-08-2023 16:00-0500 SaO2% (BldA) [Mass fraction] 99 % DO Leonides Jennifer Work Phone: [facility] 04-08-2023 16:00-0500 Systolic blood pressure 150 mm[Hg] DO Leonides Dewayneister Work Phone: [facility] 04-08-2023 15:34-0500 Body temperature 97.8 [degF] DO Leonides Dewayneister Work Phone: [facility] 04-08-2023 14:26-0500 Body height 187.96 cm DO Leonides Dewayneister Work Phone: [facility] 04-08-2023 14:26-0500 Body weight 104.4 kg DO Leonides Walker Work Phone: [facility] Encounters Encounter Date Encounter Type Care Provider Facility Start: 11-16-2023 End: 11-16-2023 ambulatory MD Tito Whitney Work Phone: [facility] Work Phone: Start: 11-16-2023 End: 11-16-2023 Patient encounter procedure MD Tito Whitney Work Phone: [facility] [address] Work Phone: Start: 10-21-2023 End: 10-21-2023 ambulatory HANSELEMMA ISBELL Not Available Start: 09-06-2023 End: 09-06-2023 ambulatory Alin Khanna MD Facility: [facility] Start: 06-14-2023 End: 06-14-2023 ambulatory CARMELA GUEVARA Facility:[facility] Start: 06-14-2023 End: 06-15-2023 ambulatory UNKNOWN PROVIDER [facility] Start: 06-14-2023 End: 06-14-2023 Subsequent hospital visit by physician Op Xray 1 [facility] Radiology Comment on above: Aftercare following surgery; Closed displaced comminuted fracture of shaft of left radius, initial encounter Start: 06-14-2023 End: 06-14-2023 Patient encounter procedure Carmela Guevara MD Work Phone: [facility] Orthopedic Hand Comment on above: Closed displaced com minuted fracture of shaft of left radius, initial encounter (Primary Dx) Start: 04-29-2023 End: 04-29-2023 ambulatory UNKNOWN PROVIDER [facility] Start: 04-27-2023 ambulatory LAURA Cintron [facility] Start: 04-27-2023 End: 04-28-2023 ambulatory CARMELA GUEVARA Facility:[facility] Start: 04-14-2023 End: 04-15-2023 ambulatory CARMELA GUEVARA [facility] Start: 04-14-2023 End: 04-14-2023 ambulatory CARMELA GUEVARA [facility] Start: 04-14-2023 Letter encounter Carmela Guevara MD Work Phone: [facility] Start: 04-14-2023 End: 04-14-2023 ambulatory CARMELA GUEVARA Facility:[facility] Start: 04-14-2023 End: 04-14-2023 Subsequent hospital visit by physician Carmela Guevara MD Work Phone: [facility] Ambulatory Surgery Comment on above: Post-op pain (Primar y Dx) Start: 04-10-2023 Evaluation and manag ement of inpatient YING HOLT Facility:[facility] Start: 04-09-2023 Admission to [facility] Carmela Guevara MD Work Phone: [facility] Start: 04-08-2023 End: 04-11-2023 Evaluation and management of inpatient Jarrod Chandler MD Work Phone: [facility] [address] Comment on above: Mesenteric hematoma, initial encounter (Primary Dx); Fall from height of greater than 3 feet; Closed fracture of shaft of left radius, unspecified fracture morphology, initial encounter; Tachycardia, unspecified; Abnormal electrocardiogram (ECG) (EKG); Abnormal electrocardiogram (ECG) (EKG) Start: 04-08-2023 End: 04-08-2023 Emergency department patient visit Leonides Walker Facility:[facility] Start: 04-08-2023 End: 04-08-2023 [facility] Comment on above: Trauma/complex Medic al Situation Start: 04-08-2023 End: 04-08-2023 Emergency department patient visit DO Leonides Walker Work Phone: [facility] Work Phone: Start: 03-02-2023 End: [...] Work Phone: Start: 04-11-2023 Assay of magnesium Yuri Pineda MD Work Phone: Start: 04-10-2023 Assay of magnesium [place] johnny Pineda MD Work Phone: Start: 04-10-2023 [...] on above: Result Comment: PERF ORMED BY: [facility] [address] [place] [address] PATHOLOGIST .NET DEVELOPER ZENY CURRIE M.D. Start: 04-08-2023 CT of [...] 2) Shingles (RZV) Vaccine (1 of 2) [facility] Start: 04-08-2033 Tetanus vaccination Tetanus (T d or Tdap) Booster [facility] Start: 06-14-2023 End: 06-13-2024 XR Radius and Ulna - left Views XR FOREARM LEFT 2 VIEWS Imaging Routine Closed displaced comminuted fracture of shaft of left radius, initial encounter Expected: 06/14/2023, Expires: 06/13/2024 [facility] Work Phone: Comment on above: Expected: 06/14/2023 , Expires: 06/13/2024 Start: 04-27-2023 End: 04-27-2023 Patient encounter procedure 04/27/2023 2:00 PM EST Office Visit [facility] [address] [address] Carmela Guevara MD [address] [place] [address] [place] [address] [facility] Start: 04-15-2023 End: 04-15-2023 Admission to same day surgery center 04/15/2023 12:02 PM EST - 04/15/2023 3:03 PM EST Surgery [facility] Main OR [address] [place] [address] Carmela Guevara MD [address] [place] [address] [place] [address] REDUCTION, OPEN, RADIUS [facility] Comment on above: REDUCTION, OPEN, RAD IUS Start: 04-15-2023 End: 04-15-2023 Evaluation and management of inpatient 04/15/2023 12:02 PM EST - 04/15/2023 3:03 PM EST [facility] [address] [place] [address] Carmela Guevara MD [address] [place] [address] [place] [address] REDUCTION, OPEN, RADIUS [facility] Main OR Comment on above: REDUCTION, OPEN, RAD IUS Start: 04-15-2023 End: 04-15-2023 REDUCTION, OPEN, RADIUS REDUCTION, OPEN, RADIUS Routine scheduled Closed displaced comminuted fracture of shaft of left radius, initial encounter 04/15/2023 12:02 PM EST [facility] Start: 04-14-2023 End: 04-14-2023 REDUCTION, OPEN, RADIUS REDUCTION, OPEN, RADIUS Routine scheduled Closed displaced comminuted fracture of shaft of left radius, initial encounter 04/14/2023 1:02 PM EST [facility] Start: 04-08-2023 [facility] Start: 10-30-2022 Influenza vaccination Influenza Vacc [...] until discontinued starting 04/10/2023, 2 completed [facility] Work Phone: Comment on above: Daily until disconti nued starting 04/10/2023, 2 completed Assay of phosphorus inorganic PHOSPHORUS Lab STAT Daily until discontinued starting 04/10/2023, 2 completed [facility] Comment on above: Daily until disconti nued starting 04/10/2023, 2 completed CBC panel - Blood by Automated count COMPLETE BLOOD COUNT Lab STAT Daily until discontinued starting 04/09/2023, 3 completed [facility] Work Phone: Comment on above: Daily until disconti nued starting 04/09/2023, 3 completed Patient referral [facility] Work Phone: Immunizations Immunization Date Immunization Notes Care Provider Fa cility 04-08-2023 tetanus toxoid, redu tali diphtheria toxoid, and acellular pertussis vaccine, adsorbed DO Leonides Walker Work Phone: [facility] Payers Date Payer Category Payer Self-pay [id number] 2023 Unknown [id number] 2023 Unknown COMMERCIAL INSUR ANCE - OTHER COMMERCIAL INSURANCE OTHER [id number] 2023-Present [address] [place] [address] Indemnity [id number] 2023 Unknown [id number] 2023 Unknown [id number] 2023 Worker's Compensation [id number] 2023 Unknown [id number] 1992 Unknown [id number] 2.16.840.1.524431.3.579.2 .732 1992 Unknown [id number] 2.16.840.1.613209.3.579.2 .732 1992 Unknown [id number] 2.16.840.1.731335.3.579.2 .732 1992 Unknown [id number] 2.16.840.1.051533.3.579.2 .732 1992 Unknown [id number] 2.16.840.1.750329.3.579.2 .732 1992 Unknown [id number] 2.16.840.1.386583.3.579.2 .732 1992 Unknown [id number] 2.16.840.1.839161.3.579.2 .732 1992 Unknown [id number] 2.16.840.1.900408.3.579.2 .732 1992 Unknown [id number] 2.16.840.1.381500.3.579.2 .732 1992 Unknown [id number] 2.16.840.1.330786.3.579.2 .732 1992 Unknown [id number] 2.16.840.1.955660.3.579.2 .732 1992 Unknown [id number] 2.16.840.1.179912.3.579.2 .732 1992 Unknown [id number] 2.16.840.1.766469.3.579.2 .196 1992 Unknown [id number] 2.16.840.1.159828.3.579.2 .1259 1992 Unknown [id number] 2.16.840.1.053960.3.579.2 .1259 1992 Unknown [id number] 2.16.840.1.573964.3.579.2 .1259 Unknown [id number] 2.16.840.1.748935.3.579.2 .531 Social History Date Type Detail Facility Tobacco smoking status MIIS Unknown if ever smoked [facility] Work Phone: Start: 1990 Sex Assigned At Male [facility] Tobacco smoking status MIIS Tobacco smoking consumption unknown [facility] Start: 1990 Sex Assigned At Not on file [facility] Gender identity Not on file [facility] Medical Equipment Procedure Code Equipment Code Equipment Origin al Text Equipment Identifier Dates 3.5 X 16 Screw E [id number] - [id number] Start: 04-14-2023 Plate 9 Hole For earm [id number] - [id number] Start: 04-14-2023 Clinical Notes 11-08-2020 to [...] Extremity Surgeon 06/14/23 documented in this encounter [facility] 04-27-2023 Note OCCUPATIONAL THERAPY HAND CLINIC EVALUATION [facility] case: authorization pending Visit #: 1 [...] for updated medication list. 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 Identification was verified by patient [...] continuing therapy closer to his home in [place], [place]. Pt would benefit from skilled OT to address problem list below. Prognosis for therapy: Good Problems include: Decreased Range of Motion, Decreased Strength, Edema, Pain, Unable to perform Full Work Tasks, Open Wound, and Lack of home program, healing structures. PLAN OF CARE: Patient would benefit from Occupational Therapy for the following goals: GOALS SHORT-TERM GOALS = [facility] GOALS - achieve in 1 visits: goals [...] on 06/07/22. OT f/u next week at [facility]. Interventions: AROM, AAROM, Tendon gliding exercises, Edema Control, Wound Care, Splinting, and Home program Plan of care discussed with patient and agreed upon. Risks and benefits of Occupational Therapy discussed with patient. Start Time: 15:52 Stop Time: 16:32 Total Treatment Minutes: 40 minutes Timed Code Treatments by Procedure: OT Therapeutic Procedures THERAPEUTIC EXERCISES (15 MIN) [11231 (more content not included)... [facility] 04-14-2023 Note Peripheral Block Patient location [...] fractionated injection: yes No block complications [facility] 04-14-2023 Note Surgical Attestation : I have reviewed the patient's History and Physical Examination. I have personally seen and evaluated the patient, repeating ortez portions. There is no significant interval change. This injury occurred at work and is a [facility] claim. Surgery is still indicated. Yes Consent reviewed and signed by patient/family: Yes Operative site verified and marked: Yes Carmela Guevara MD 04/14/2023 11:51 AM [facility] 04-14-2023 Surgery Postoperative evaluation and management note Brief Operative Note BV OR 3 Eduarda Williamson 32 year old male Surgical Contact Serial Number: [id number] Preoperative Diagnosis: Pre-op Diagnosis * Closed displaced comminuted fracture of shaft of left radius, initial encounter [S52.352A] Postoperative Diagnosis: * Closed displaced comminuted fracture of shaft of left radius, initial encounter [S52.540A] Procedures: LEFT radial shaft open reduction internal fixation Surgeon(s): Surgeon(s): Carmela Guevara MD Staff: Scrub: Nathaly Gonzalez RN Utility Bag Assembler Nurse: Lesvia Knight RN; Sandy Yuen RN; Bang Rao RN Physician Adult Day Care Worker: Jillian Read PA-C Aerial Installer: Boy Weir MD Anesthesia: LMA; local Anesthesiologist: Laura Solano MD MACHINE ROOM OPERATOR: Coreen Morris APRN-CRNA Molding Utility Worker: Keysahwn Lopez MD Specimen(s): * No specimens in [...] by Jillian Read PA-C 04/14/2023 3:32 PM [facility] 04-14-2023 Surgery Surgical operation note Eduarda Williamson [id number] 04/14/2023 Date of Surgery: 04/14/2023 PREOPERATIVE DIAGNOSIS: leftforearm radial shaft fracture POSTOPERATIVE DIAGNOSIS: Same. PROCEDURE:LEFT FOREARM open treatment radial shaft fracture with internal fixation Use and interpretation of operating fluoroscopy: Yes ATTENDING SURGEON: Carmela Guevara M.D. STAFF: Scrub: Nathaly Gonzalez RN Utility Bag Assembler Nurse: Lesvia Knight RN; Sandy Yuen, ANTONINO; Bang Rao RN Physician Adult Day Care Worker: Jillian Read PA-C Aerial Installer: Boy Weir MD ANESTHESIA: Consult IV FLUIDS AND URINE: See anesthesia. ESTIMATED BLOOD LOSS: 1 mL. DRAINS: None. SPECIMENS: None. COMPLICATIONS: None. IMPLANTS: Implant Name Type Inv. Item Serial No. Trimming Cutter Machine Lot No. LRB No. Used Action PLATE 9 HOLE FOREARM [id number] - [id number] PLATE 9 HOLE FOREARM [id number] Nanette Left 1 Implanted 3.5 X 16 SCREW [id number] - [id number] Screw 3.5 X 16 SCREW [id number] Nanette Left 6 Implanted INDICATIONS: Patient suffered [...] portions of the case. Carmela Guevara MD [facility] 04-14-2023 Miscellaneous Notes Brief Operative Note BV OR 3 Eduarda Williamson 32 year old male Surgical Contact Serial Number: [id number] Preoperative Diagnosis: Pre-op Diagnosis * Closed displaced comminuted fracture of shaft of left radius, initial encounter [S52.058A] Postoperative Diagnosis: * Closed displaced comminuted fracture of shaft of left radius, initial encounter [S52.352A] Procedures: LEFT radial shaft open reduction internal fixation Surgeon(s): Surgeon(s): Carmela Gueavra MD Staff: Scrub: Nathaly Gonzalez RN Utility Bag Assembler Nurse: Lesvia Knight RN; Sandy Yuen RN; Bang Rao RN Physician Adult Day Care Worker: Jillian Read PA-C Aerial Installer: Boy Weir MD Anesthesia: LMA; local Anesthesiologist: Laura Solano MD MACHINE ROOM OPERATOR: Coreen Morris APRN-CRNA Molding Utility Worker: Keyshawn Lopez MD Specimen(s): * No specimens [...] Read PA-C 04/14/2023 3:32 PM Eduarda Williamson [id number] 04/14/2023 Date of Surgery: 04/14/2023 PREOPERATIVE DIAGNOSIS: leftforearm radial shaft fracture POSTOPERATIVE DIAGNOSIS: Same. PROCEDURE:LEFT FOREARM open treatment radial shaft fracture with internal fixation Use and interpretation of operating fluoroscopy: Yes ATTENDING SURGEON: Carmela Guevara M.D. STAFF: Scrub: Nathaly Gonzalez RN Utility Bag Assembler Nurse: Lesvia Knight RN; Sandy Yuen RN; Bang Rao RN Physician Adult Day Care Worker: Jillian Read PA-C Aerial Installer: Boy Weir MD ANESTHESIA: Consult IV FLUIDS AND URINE: See anesthesia. ESTIMATED BLOOD LOSS: 1 mL. DRAINS: None. SPECIMENS: None. COMPLICATIONS: None. IMPLANTS: Implant Name Type Inv. Item Serial No. Trimming Cutter Machine Lot No. LRB No. Used Action PLATE 9 HOLE FOREARM [id number] - [id number] PLATE 9 HOLE FOREARM [id number] Nanette Left 1 Implanted 3.5 X 16 SCREW [id number] - [id number] Screw 3.5 X 16 SCREW [id number] Kenefic Left 6 Implanted INDICATIONS: Patient suffered a [...] were discussed with the patient and/or legal manufacturer representative. The risks, benefits and alternatives were reviewed. Questions regarding blood transfusions were answered. The patient /or the patient s legal manufacturer representative agree with the plan for transfusion of blood and/or blood components. documented in this encounter [facility] 04-14-2023 Progress note Formatting of t his note is different from the original. Blood Attestation: ATTESTATION OF INFORMED CONSENT FOR BLOOD: The transfusion of blood and/or blood components were discussed with the patient and/or legal manufacturer representative. The risks, benefits and alternatives were reviewed. Questions regarding blood transfusions were answered. The patient /or the patient s legal manufacturer representative agree with the plan for transfusion of blood and/or blood components. [facility] Work Phone: 04-14-2023 Hospital Discharge instructions Dior [...] otherwise directed by your surgeon or physician library technical assistant, you may take over the counter anti-inflammatory (NSAID) medication (Ibuprofen, naproxen, etc.) as directed on the label. If you have a medical contraindication to taking NSAIDS, please consult your primary care doctor for advice. Please be sure you understand the plan for your post-operative pain management and are aware of where to last picker your prescriptions if not provided before discharge. [...] on weekends or holidays, please call the [facility] Nurse Line at [phone]. Appointments Your follow-up appointment is scheduled on Future Appointments Date Time Provider Department Center 04/27/2023 2:00 PM Carmela Guevara MD [facility] If you do not already have an appointment scheduled within two weeks of your surgery, please contact the surgeon s office. Do not hesitate to call your surgeon s office with any questions or concerns. After business hours please call the [facility] Nurse Line at and ask for the orthopaedic resident occupational therapy technician. For emergencies call [phone] [facility] Upper Extremity and Hand Surgery MD Jillian Galvan PA-C Orthopaedic Surgery Nurse Line Orthopaedic Surgery Appointments [phone] For questions related to paperwork, please call Orthopaedic Surgery [phone] PERIOPERATIVE DISCHARGE/HOME-GOING INSTRUCTIONS ANESTHESIA - GENERAL (ADULT) If a problem arises, you may contact your physician by calling [phone] and asking for the resident occupational therapy technician for hand surgery service. Special Care Needs: [...] very uncomfortable and can t urinate, call [phone] or come to the emergency room. The [...] area that persists beyond 36 hours, contact [phone], and ask for the anesthesiologist occupational therapy technician. For additional health information, call: [facility] Line at [phone]; 24 hours a day. You were given IV Toradol (which is an NSAID) today for your procedure. You next dose of Motrin is due TONJUDY at 9PM 04/14/2023 documented in this encounter [facility] 04-14-2023 History and physical note Surgical Attestation: I have reviewed the patient's History and Physical Examination. I have personally seen and evaluated the patient, repeating ortez portions. There is no significant interval change. This injury occurred at work and is a [facility] claim. Surgery is still indicated. Yes Consent reviewed and signed by patient/family: Yes Operative site verified and marked: Yes Carmela Guevara MD 04/14/2023 11:51 AM [facility] Work Phone: 04-14-2023 History and physical note Surgical Attestation: I have reviewed the patient's History and Physical Examination. I have personally seen and evaluated the patient, repeating ortez portions. There is no significant interval change. This injury occurred at work and is a [facility] claim. Surgery is still indicated. Yes Consent reviewed and signed by patient/family: Yes Operative site verified and marked: Yes Carmela Guevara MD 04/14/2023 11:51 AM documented in this encounter [facility] 04-11-2023 Note [facility] DIVISION OF TRAUMA SURGERY DISCHARGE SUMMARY [place] [id number] Eduarda Williamson Date of : 1990 32 [...] in by EMS as a transfer from [facility] following a fall from height. 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 -LOC -headstrike -AC/AP. [facility] imaging demonstrated a small R PTX, SMA [...] Tx'd to [facility] from [facility] for serial abdominal exams and orthopedic consultation. 04/09: Abdominal exams benign. H/H stable. Admitted to [facility]uma [facility]. 04/10: Advanced to regular diet. 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 Additionally, patient advised on addictiveness, safe storage and disposal of opioids. Explanation of the primary diagnosis, and secondary diagnoses where applicable, including test results, Discussion of any new medications and treatments, including expected benefits and potential major side effects, Explanation of previous treatments or medications that are discontinued, Disc (more content not included)... [facility] 04-11-2023 Plan of care note Problem: [...] will be met Outcome: Adequate for Discharge [facility] 04-11-2023 Miscellaneous Notes Problem: Routine Care: [...] AdmissionCare documentation entered by: Luis Eduardo Buenrostro [facility], 27th edition, Copyright 2022 [facility], [employer] All Rights Reserved. [id number]:32:11-05:00 documented in this encounter [facility] 04-11-2023 Hospital course Narrative Images from the original note were not included. [facility] DIV[facility] OF TRAUMA SURGERY DISCHARGE SUMMARY [place] [id number] Eduarda Williamson Date of : 1990 32 [...] 30 Tablet, Refills: 0 REASON FOR HOSPITALIZATION: dEuarda Williamson is a 32 year old male with no significant PMHx brought in by EMS as a transfer from [facility] following a fall from height. 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 -LOC -headstrike -AC/AP. [facility] imaging demonstrated a small R PTX, SMA [...] lbowel. Admitted to trauma [facility] for serial abdominal exams. LUE splinted by ortho. SIGNIFICANT FINDINGS: Catalog of Injuries 1. S/p Fall from height, ~30ft (ladder) 04/08/2023 2. Traumatic mesenteric hematoma 3. Left radial shaft fracture 4. Small R apical pneumothorax 5. Acute pain due to trauma Incidental Findings None on imaging, reviewed 04/10 KO HOSPITAL COURSE: 04/08/2023: Fall from . Tx'd to [facility] from [facility] for serial abdominal exams and orthopedic consultation. 04/09: Abdominal exams benign. H/H stable. Admitted to Trauma RNF. 04/10: Advanced to regular diet. 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 Additionally, [...] more urgent follow up Laura Caruso APRN, [facility] Trauma Surgery Surgical Critical Care Pager: [phone] *For urgent issues arising after 5PM during the week or on weekends/holiday, please page the trauma resident occupational therapy technician at [phone]. This patient's plan of care was discussed with Trauma Floor attending, Dr. Ibarra. documented in this encounter [facility] 04-10-2023 Note PHYSICAL THERAPY ACU TE [...] moving, I will definitely do this again. 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 Marilu Givens, PT, MPT (B) [phone] *Secure Chat with Questions NA = Not Assessed, I = Independent, NC = Modified Independent, Sup = Supervised, Set up = Physical Assistance for Set-up Only, Min = Minimal Assistance, Mod = Moderate Assistance, Max = Max assistance; Dep = Dependent; AROM = Active Range of Motion; PROM = Passive Range of Motion; MMT = Manual Muscle Test; LE = Lower Extremity [facility] [employer] [facility] 04-10-2023 Consult note Associated Order (s): [...] moving, I will definitely do this again. 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 Marilu Givens, PT, MPT (B) [phone] *Secure Chat with Questions NA = Not Assessed, I = Independent, NC = Modified Independent, Sup = Supervised, Set up = Physical Assistance for Set-up Only, Min = Minimal Assistance, Mod = Moderate Assistance, Max = Max assistance; Dep = Dependent; AROM = Active Range of Motion; PROM = Passive Range of Motion; MMT = Manual Muscle Test; LE = Lower Extremity [facility] 04-10-2023 Consult note Associated Order (s): IP [...] moving, I will definitely do this again. 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 If any questions contact [facility] DME Provider at [phone]. 04/10/2023 6 Clicks Daily Activity OT Help [...] Guard Assist/Supervision 4 - Non = Modified [place]/Independent ASSESSMENT: Patient is functionally appropriate for discharge home once medically cleared. No further Occupational Therapy Services reccommended at this time. PLAN: Eduarda Williamson will be d/c from acute OT services able to discuss the evaluation findings and treatment plan with the patient/family. Marilu Chaves OTR/L Prefer secure chat b. [phone] NA = Not Assessed, I = Independent, NC = Modified Independent, Sup = Supervised, Set up = Physical Assistance for Set-up Only, Min = Minimal Assistance, Mod = Moderate Assistance, Max = Max assistance; Dep = Dependent; AROM = Active Range of Motion;PROM=Passive Range of Motion; MMT = Manual Muscle Test; UB = Upper Body; LB = Lower Body documented in this encounter [facility] 04-10-2023 Plan of care note Problem: [...] will be achieved and maintained Outcome: Met [facility] 04-10-2023 Hospital Discharge instructions Laura Caruso APRN-ADMINISTRATIVE EXECUTIVE - 04/10/2023 12:16 PM EST Discharge Instructions: [...] primary care physician or establishing care at [facility] if you do not already have [...] IMMEDIATELY. Alternatively, you may come into the [facility] Emergency Department IMMEDIATELY for an emergent [...] not have a primary physician please call [phone] for guidance on finding a [facility] provider. If you have questions or concerns , if your condition worsens or you develop new symptoms please call the [facility] Line at [phone]. 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 If any questions contact [facility] DME Provider at [phone]. 04/10/2023 6 Clicks Daily Activity OT Help [...] Guard Assist/Supervision 4 - Non = Modified [place]/Independent ASSESSMENT: Patient is functionally appropriate for discharge home once medically cleared. No further Occupational Therapy Services reccommended at this time. PLAN: Eduarda Williamson will be d/c from acute OT services able to discuss the evaluation findings and treatment plan with the patient/family. Marilu Chaves OTR/L Prefer secure chat b. 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 If any questions contact [facility] DME Provider at [phone]. 04/10/2023 6 Clicks Daily Activity OT Help [...] Guard Assist/Supervision 4 - Non = Modified [place]/Independent ASSESSMENT: Patient is functionally appropriate for discharge home once medically cleared. No further Occupational Therapy Services reccommended at this time. PLAN: Eduarda Williamson will be d/c from acute OT services able to discuss the evaluation findings and treatment plan with the patient/family. Marilu Chaves OTDagoberto/L Prefer [employer] b. [phone] NA = Not Assessed, I = Independent, NC = Modified Independent, Sup = Supervised, Set up = Physical Assistance for Set-up Only, Min = Minimal Assistance, Mod = Moderate Assistance, Max = Max assistance; Dep = Dependent; AROM = Active Range of Motion;PROM=Passive Range of Motion; MMT = Manual Muscle Test; UB = Upper Body; LB = Lower Body [facility] 04-10-2023 History of Present illness Narrative Images from the original note were not included. GENERAL INFORMATION TRAUMA FLOOR - STAFF NOTE Patient Name: Eduarda Williamson Admission Date: 04/08/2023 Patient seen and examined on 04/10/23 INTERVAL HISTORY/EVENTS Background: Eduarda Williamson is a 32 year old male with no significant PMHx brought in by EMS as a transfer from [facility] following a fall from height. 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 -LOC -headstrike -AC/AP. [facility] imaging demonstrated a small R PTX, SMA [...] lbowel. Admitted to trauma [facility] for serial abdominal exams. LUE splinted by ortho. Hospital Course: 04/08/2023: Fall from . Tx'd to [facility] from [facility] for serial abdominal exams and orthopedic consultation. 04/09: Abdominal exams benign. H/H stable. Admitted to Trauma [facility]. 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 This patient's plan of care was discussed with Trauma Floor attending, Dr. Ibarra. Division of Trauma, Surgical Critical Care, EGS Ticket to Roll Note . Provider Called Report To (Enter Provider Name, Service, and Time): Leandra Velázquez. Trauma Surgery. 1936, who is the RUP. The patient is transferring from ED, room # 48, to Trauma [address], room # 5504. The patient was [...] without guarding or rebound Hiro Porter DO [facility] Department of Surgery Division of Trauma Surgery, Acute Care Surgery, Critical Care, and [place] TRAUMA SURGERY HISTORY AND PHYSICAL Eduarda Williamson [id number] ASSESSMENT: Eduarda Williamson is a 32 year old male , with no significant PMH, who presents as a transfer from [facility] after a fall from 30ft from [employer]. INJURIES: 1. Stable 2.3 x 2.2 cm [...] Kathryn Lee MD documented in this encounter [facility] 04-09-2023 Plan of care note Problem: [...] adult patient will be met Outcome: Progressing [employer] [facility] 04-08-2023 Note Formatting of this n ote [...] AdmissionCare documentation entered by: Luis Eduardo Buenrostro [facility] [employer], 27th edition, Copyright 2022 [facility] [employer] All Rights Reserved. [id number]:11-05:00 [employer] Work Phone: 04-08-2023 History of Present illness Narrative CAT 2 Pt is a 32yo M presenting to ED via [employer] as transfer from [facility] s/p fall 30ft from ladder at work, L ulnar fracture, -thinners, -LOC. 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 Pt denies LOC. Pt was brought to [facility], where he was diagnosed with small R pneumothorax and L ulnar fracture. SAMANTA called pt's mother Lacho Williamson [phone] to provide update on pt status. Lacho is on the way to ED and will be visiting shortly. PLAN: Pending. ROB Penaloza, COIN BOX COLLECTOR, MA ED Risk Management Director documented in this encounter [facility] 04-08-2023 History and physical note Images from the original note were not included. [facility] Department of Surgery Division of Trauma Surgery, Acute Care Surgery, Critical Care, and [place] TRAUMA SURGERY HISTORY AND PHYSICAL Eduarda Williamson [id number] BASIC INJURY INFORMATION: Level of activation: Category [...] in by EMS as a transfer from [facility] after a fall from height. Reports he [...] drug use Living status: Home Primary language: Russian Functional status: Independent Impairments: None Assistive Devices [...] in by EMS as a transfer from [facility] after a fall from height. Reports he was working on a [employer] and fell off the top of the [...] with Attending Trauma Surgeon, Dr. Holt. Pau iPneda MD PGY1 Trauma Surgery Pager: [phone] Teaching Physician Note: I saw and evaluated [...] and Emergency General Surgery Department of Surgery [facility] Pager: [phone] [facility] Work Phone: 04-08-2023 History and physical note Images from the original note were not included. [facility] Department of Surgery Division of Trauma Surgery, Acute Care Surgery, Critical Care, and [place] TRAUMA SURGERY HISTORY AND PHYSICAL Eduarda Williamson [id number] BASIC INJURY INFORMATION: Level of activation: Category [...] in by EMS as a transfer from [facility] after a fall from height. Reports he [...] drug use Living status: Home Primary language: Russian Functional status: Independent Impairments: None Assistive Devices [...] in by EMS as a transfer from [facility] after a fall from height. Reports he [...] Pau Pineda MD PGY1 Trauma Surgery Pager: [phone] Teaching Physician Note: I saw and evaluated [...] and Emergency General Surgery Department of Surgery [facility] Pager: [phone] documented in this encounter [facility] 04-08-2023 Emergency department Triage note Prehospital Medications: TXA Dilaudid Zofran [facility] 04-08-2023 Emergency department Note Prehospital Medications: TXA Dilaudid Zofran 32 y/o M fall off telephone pole aprox 30 ft. Transfer from [facility] Images from the original note were not included. EMERGENCY DEPARTMENT - VISIT NOTE HISTORY OF PRESENT ILLNESS BASIC INJURY INFORMATION: Level of activation: Category 2 Trauma Mode of transport: Life Flight Mechanism of injury: Fall from height or stairs Complicating features: Not applicable Protective measures: Not applicable Date of Injury: 04/09/23 Time of Injury: Earlier today Patient origin: Transfer from outside facility - [facility] The history is provided by the Patient and MLF. Eduarda Williamson is a 32 year old male presenting to the ED for fall from 30ft. Patient was working on [employer] when he fell and landed on his back on concrete, denies LOC. 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 MLF reports patient tachycardic, otherwise vss en route. 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 Anticoagulation/Antiplatelet use: denies ---- [...] 8 wnl [HS] 1816 INR: 0.94 [HS] 181 COMPLETE BLOOD COUNT W/DIFF (RAPID RESPONSE LABS)(!): [...] Course User Index [HS] Nona Rojas MD [facility] Medications given in the ED: [...] questions. Nona Rojas MD EM PGY-2 Pager #[phone] Note has been documented by Libby Rolon [...] Jarrod Chandler MD documented in this encounter [facility] 04-08-2023 Emergency department Triage note 32 y/o M fall off telephone pole aprox 30 ft. Transfer from [facility] 04-08-2023 Physician Emergency department Note Images [...] Patient origin: Transfer from outside facility - [employer] The history is provided by the Patient and MLF. Eduarda Williamson is a 32 year old male presenting to the ED for fall from 30ft. Patient was working on [employer] when he fell and landed on his back on concrete, denies LOC. 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 MLF reports patient tachycardic, otherwise vss en route. 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 Anticoagulation/Antiplatelet use: denies ---- [...] as of 04/09/23 0130 Marlys Apr 08, 2023 1817 LFT(!): Albumin 4.3 Bilirubin, Direct 0.08 Bilirubin, [...] 18 Leukocytosis. No anemia or thrombocytopenia [HS] 1817 BASIC METABOLIC PANEL(aka BMP) [CH8]: Glucose 106 Sodium 141 Potassium 3.9 Carbon Dioxide 26 Chloride 106 BUN 14 Creatinine 0.86 Calcium 9.4 Anion Gap 13 Estimated GFR 119 My independent interpretation after reviewing the currently available data: BMP without evidence of clinically significant electrolyte derangements, OSMIN or CKD. [HS] 1817 Lactate: 1.6 wnl [HS] 9 CTA C/A/P IMPRESSION: 1. Stable 2.3 x [...] to streak artifact from contrast bolus. [HS] 1933 Patient admitted trauma team per Dr. Lee (trauma attending) to trauma RNF [HS] ED Course User Index [HS] Nona Rojas MD MDM Medications given in the ED: Medications lactated ringers iv infusion ( Intravenous IV New Bag 2/8/24 1926) acetaminophen (TYLENOL) tablet (1,000 mg Oral Given 04/08/232010) iohexol (OMNIPAQUE) 350 MG/ML injection (100 mL Intravenous Push Given 04/08/23 1743) HYDROmorphone (DILAUDID) 0.2 MG/ML injection 0.4 mg [...] opportunity to ask questions. Nona Rojas MD PGY-2 Pager #[phone] Note has been documented by Libby Rolon [...] in the resident's note. Jarrod Chandler MD [facility] 11-08-2020 Note Infectious Disease COVID-19 COVID-19 [...] fight infection (immunocompromised). ? Live in a halfway or long-term care facility. ? Have a [...] managed at home with rest, fluids, and pdnq-brl-htaeokb medicines. Treatment for a serious infection usually [...] [facility] Evaluation note No assessment inform ation available [facility] Work Phone: Evaluation note Diagnosis [...] radius, initial encounter documented in this encounter [facility] Summary Purpose Family History No Family History Records FoundNo Family History Records FoundNo Family History Records FoundNo Family History Records FoundNo Family History Records Found Advance Directives Advance Directive Response Recorded Date/ Time Advance [...] of code status. Defaulting to Full Code Advance Directive Response Recorded Date/ Time Advance Directives No January 01, 2017 10:40am Chief Complaint and Reason for Visit Chief Complaint Fall Chief Complaint S81.852A Reason for Referral Specialty Diagnoses / Procedures Referred By Contkrystin t Referred To Contact Occupational Therapy Diagnoses Closed displaced comminuted fracture of shaft of left radius, initial encounter Procedures OT EVAL LOW COMPLEX 30 MIN OT EVAL MOD COMPLEX 45 MIN OT EVAL HIGH COMPLEX 60 MIN WK COMP WORK CONDITIONING Carmela Guevara MD [address] [place] [address] Occ Therapy [address] [place] [address] Referral ID Status Reason Start Date Expiration Date Visits Requested Visits Authorized [id number] [facility] 04/09/2023 04/09/2024 10 10 Scheduling Instructions SCHEDULING INSTRUCTIONS: Call [phone] to schedule your Occupational Therapy appointment. We offer therapy services at many convenient locations. Please arrive 20 minutes prior to your appointment to register. It is important to bring your insurance cards and a personal identification card to your appointment. If you are unable to keep your appointment, cancel or reschedule by calling [phone] or via [email or web address]. Thank you! Question Answer Is this for [...] left radius, initial encounter Carmela Guevara MD [address] [place] [address] [place] [address] [facility] PRE ADMISSION TESTING [address] [place] [address] Referral ID Status Reason Start Date Expiration Date V isits Requested Visits Authorized [id number] Authorized 04/09/2023 04/09/2024 1 1 Scheduling Instructions Your surgical team will reach out to you to schedule a pre-admission testing appointment. Question Answer Reason for consult? Recommended PAT Risk Score Specialty Diagnoses / Procedures Referred By Stephanie cowart Referred To Contact Radiology Diagnoses Closed displaced comminuted fracture of shaft of left radius, initial encounter Procedures XR FOREARM LEFT 2 VIEWS Carmela Guevara MD [address] [place] [address] [place] [address] S DI[facility]NOSTIC RADIOLOGY [address] [place] [address] [place] [address] Referral ID Status Reason Start Date Expiration Date V isits Requested Visits Authorized [id number] Authorized 06/14/2023 06/13/2024 1 1 Specialty Diagnoses / Procedures Referred By Stephanie t Referred To Contact Radiology Diagnoses Aftercare following surgery Closed displaced comminuted fracture of shaft of left radius, initial encounter Procedures XR FOREARM LEFT 2 VIEWS Carmela Guevara MD [address] [place] [address] S DIAGNOSTIC RADIOLOGY [address] [place] [address] [address] [place] [phone] Referral ID Status Reason Start Date Expiration Date Visits Re quested Visits Authorized [id number] Closed 04/28/2023 04/27/2024 1 1 Additional Source Comments (unrecognized sect ion and content) No Status Records FoundNo Status Records FoundNo Status Records FoundNo Status Records FoundNo Status Records Found INFORMATION SOURCE (unrecogn ized section and content) DATE CREATED AUTHOR 05/09/2021 [facility] DATE CREATED AUTHOR AUTHOR'S ORGANIZ ATION 04/13/2023 [facility] DATE CREATED AUTHOR AUTHOR'S ORGANIZ ATION 07/10/2023 [facility] DATE CREATED AUTHOR AUTHOR'S ORGANIZ ATION 09/18/2023 [facility] DATE CREATED AUTHOR AUTHOR'S ORGANIZ ATION 10/23/2023 [facility] dical Specialists EPIC Care Teams (unrecognized sec tion and content) [...] April 08, 2023 End: April 08, 2023 Service Greeter Relationship Specialty Start Date End Date Carmela Guevara MD [address] [place] [address] [place] [address] Physician Orthopaedic Hand Service 05/01/23 Laura Victoria, OTR/L [address] [place] [address] [address] [place] [phone] Occupational Therapist Occupational Therapy 06/05/23 Service Greeter Relationship Specialty Start Date End Date Carmela Guevara MD [address] [place] [address] [address] [place] [phone] Physician Orthopaedic Hand Service 05/01/23 Laura Victoria, OTR/L [address] [place] [address] [place] [address] Occupational Therapist Occupational Therapy 06/05/23 Team Status: Inactive Member Role Status Dates Tito Whitney MD Primary Care Provider Active Start: November 16, 2023 End: November 16, 2023 Buster Guillaume Jr, DO Attending Provider Active S tart: November 16, 2023 End: November 16, 2023 Goals (unrecognized section and content) Goals may be documented in a n alternate sectionGoals may be documented in an alternate section Reason for Visit (unrecogniz ed section and content) Reason Comments Trauma/complex Medical Situation Specialty Diagnoses / Procedures Referred By Contac t Referred To Contact Emergency Medicine Diagnoses Contusion of other intra-abdominal organs, initial encounter TRAUMA: fall with mesenteric artery dissection Procedures n/a [facility] [address] [place] [phone] Phone: [phone] [facility] [address] [place] [id number] Phone: [phone] Referral ID Status Reason Start Date Expiration Date Visits Re quested Visits Authorized [id number] 3 3 Specialty Diagnoses / Procedures Referred By Contac t Referred To Contact Ambulatory Surgery Diagnoses Closed displaced comminuted fracture of shaft of left radius, initial encounter Closed displaced comminuted fracture of shaft of left radius, initial encounter [S52.352A] Procedures REDUCTION, OPEN, RADIUS Carmela Guevara MD [address] [place] [address] [address] [place] [phone] [facility] [address] [place] [phone] Phone: [phone] Referral ID Status Reason Start Date Expiration Date Visits Re quested Visits Authorized [id number] 3 3 Reason Comments Joint Pain Arm [...] Procedures XR FOREARM LEFT 2 VIEWS Carmela Guveara MD [address] [place] [address] [facility] DIAGNOSTIC RADIOLOGY [address] [place] [place] [address] Referral ID Status Reason Start Date Expiration Date Visits Re quested Visits Authorized [id number] Closed 04/28/2023 04/27/2024 1 1 Scheduled Active and Recently Administ ered Medications (unrecognized section and content) Medication Order 04/09/2023 04/10/2023 04/11/2023 acetaminophen (TYLENOL) tablet 1,000 mg, Oral, Every 6 hours, First dose on Wed04/08/23 at 2004, Until Discontinued 020 (Hold/Not Given - Provider: Guanaco Ram RN - Reason: Not indicated)0849 (Given - Provider: Constance Barnett RN)1328 (Given - Provider: Madyson Nicolas RN)2154 (Given - Provider: Alejandra Roberts RN) 0400 (Hold/Not Given - Provider: Alejandra Roberts RN - Reason: Patient sleeping)0813 (Given - Provider: Uri Cade)1309 (Given - Provider: Uri Cade)205 (Given - Provider: Alejandra Roberts RN) 0246 (Given - Provider: Alejandra Roberts RN)0850 (Given - Provider: Krystal Dominguez, ANTONINO)1500 (Due - Provider: Krystal Dominguez RN)2003 (Due) [...] RN) 0850 (Given - Provider: Krystal Dominguez RN)2100 (Due) HYDROmorphone (DILAUDID) 0.2 MG/ML injection 0.4 [...] BE BASED ON THE PRIMARY CLINICAL RECORDS. [facility]. provides no warranty or guarantee of the accuracy or completeness of information in this document.
--- NOTE | 2023-11-19 06:53 | MR_ITS ---
The [address] [address] Patient Name: EDUARDA WILLIAMSON MRN: [id number] date: 1990 Sex: M Assigned Patient Location: MRI Current Patient Location: Accession/Order Number: [id number] Exam Date: 11/19/2023 07:00 Report Date: 11/22/2023 07:13 At the request of: RAKAN VALENTIN Procedure: MR cervical spine wo con MR cervical spine wo con, 11/19/2023 7:00 AM EDT INDICATION: sprain ligaments of lumbar spine S33.SXXA;S73.102A;S73.101A COMPARISON: There is no appropriate prior study for comparison. TECHNIQUE: Multiplanar, multisequential MRI images of cervical spine were obtained without contrast. FINDINGS: There is normal physiologic cervical lordosis. The vertebral heights are relatively preserved. The cervicomedullary junction is unremarkable. No definite signal abnormality within the spinal cord is noted. 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 At the level of C2-C3, there is no neuroforaminal narrowing or canal stenosis. At the level of C3-C4, there is no neuroforaminal narrowing and no canal stenosis. At the level of C4-C5, there is mild right neuroforaminal narrowing and no canal stenosis. At the level of C5-C6, there is partial fusion of the C5-C6 with no neuroforaminal narrowing and no canal stenosis. At the level of C6-C7, there is no neuroforaminal narrowing and no canal stenosis. Level of C7-T1 is unremarkable. No definite muscular or ligamentous injury is noted. MR/MR cervical spine wo con IMPRESSION: Mild degenerative changes of the cervical spine. Electronically authenticated by: OVIDIO ARROYO Date: 11/22/2023 07:13
== END 2023-11-19 06:48 | disposition home or self-care (01) ==
LOC: MRI 06:47
PROVIDERS: PCP Family Medicine; Visit Provider Nurse Practitioner Family
DX: S33.5XXA Sprain of ligaments of lumbar spine, initial encounter (principal); S73.101A Unspecified sprain of right hip, initial encounter; S73.102A Unspecified sprain of left hip, initial encounter; M50.30 Other cervical disc degeneration, unspecified cervical region
CPT/HCPCS: 72141

== ENCOUNTER 2023-12-20 13:14 | Outpatient (OUT) | payer OTHER, SELFPAY ==
--- OUTSIDE RECORDS SUMMARY | 2023-12-20 13:23 | XMS_ITS | CCD ---
Author Organization [facility] Care Team Providers Care 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 Name Role Phone DO Leonides Walker Emergency Provider [phone] MD Tito Whitney Primary Care Provider [phone] Unavailable Primary Care Provider Unavailalonso Guevara MD, Carmela Unavailable Cornachione OTR/L, Laura Unavailable CARMELA GUEVARA Attending Unavailable ISMAEL, CARMELA Referring Unavailable ISMAEL, CARMELA Admitting Unavailable ISMAEL, CARMELA Admitting Unavailable PROVIDER, UNKNOWN Attending Unavailable ISMAEL, CARMELA Admitting Unavailable PROVIDER, UNKNOWN Attending Unavailable PROVIDER, UNKNOWN Attending Unavailable JILLIAN READ Referring Unavailable PROVIDER, UNKNOWN Admitting Unavailable PETERSON, MARLEY Referring Unavailable PROVIDER, UNKNOWN Attending Unavailable PROVIDER, UNKNOWN Admitting Unavailable ISMAEL, CARMELA Attending Unavailable PROVIDER, UNKNOWN Admitting Unavailable LAURA VICTORIA Attending Unavailable ISMAEL, CARMELA Referring Unavailable PROVIDER, UNKNOWN Admitting Unavailable PROVIDER, UNKNOWN Attending Unavailable PROVIDER, UNKNOWN Admitting Unavailable ISMAEL, CARMELA Attending Unavailable PROVIDER, UNKNOWN Admitting Unavailable PROVIDER, UNKNOWN Admitting Unavailable PETERSON, MARLEY Referring Unavailable JARROD CHANDLER Attending Unavailable PROVIDER, UNKNOWN Attending Unavailable PROVIDER, UNKNOWN Admitting Unavailable YING HOLT Admitting Unavailable PETERSON, MARLYE Referring Unavailable PROVIDER, UNKNOWN Attending Unavailable PROVIDER, UNKNOWN Attending Unavailable ISMAEL, CARMELA Referring Unavailable PROVIDER, UNKNOWN Admitting Unavailable Jey BOWERS, Alin Wright Attending Unavailable BOBY SOMMERS Attending Unavailable FRANCES ISBELL Attending Unavailable MD Tito Whitney Primary Care Provider [phone] DO Buster Guillaume Jr Attending Provider [phone] Buster Guillaume Jr Attending Unavailable Tito Whitney Primary Care Unavailable Buster Guillaume Jr Admitting Unavailable Leonides Walker Admitting Unavailable Keister, Leonides A Attending Unavailable Tito Whitney Primary Care Unavailable Medications Current Medications Medication Drug Class(es) [...] RCAN) 0.4 MG/ML injection polyethylene glycol 3350 11326 mg powder for oral solution (1 source) Osmotic Laxative Start: 04-09-2023 polyethylene glycol (MIRALAX) 17 g packet sennosides, prison 8.6 mg oral tablet (5 sources) Start: [...] for closed fracture] Onset: 04-08-2023 04-08-2023 Episodic Open wounds of extremities (1 source) Open bite, left lower leg, initial encounter; Translations: [Open bite, left lower leg, initial encounter] Onset: 11-16-2023 Episodic Other aftercare (1 source) Surgical follow-up; [...] Interpretation Reference Range Facility Progress Noteson 06-14-2023 Linen Manager Authentication Interface Message Text Hand Clinic Post-operative [...] left radius, initial encounter ORDERING PROVIDER: CARMELA LOVE NOTE: COMPARISON: XR FOREARM LEFT 2 VIEWS [...] left radius, initial encounter ORDERING PROVIDER: CARMELA LOVE NOTE: COMPARISON: XR FOREARM LEFT 2 VIEWS [...] failure or loosening. Left forearm MACRO: None [facility] Radiology [facility]narrative) [facility] Radius and Ulna - left Vi ewsOrdered By: Eduarda Nichole on 06-14-2023 [facility] Work Phone: Progress Noteson 04-29-2023 Linen Manager Authentication Interface Message Text Patient was identified by name and date of . Kristi Mercedes RN, RN Patient at risk for falls:No Falls Risk protocol implemented: No Normal The [facility] Linen Manager Authentication Interface Message Text I am seeing Mr Williamson today for routine trauma follow up. He was admitted on 04/08 after a fall from a ladder. Injuries included left radius fracture, small right apical pneumothorax and mesenteric hematoma. He arrived as a transfer from [facility]. His injuries were treated non-operatively. He was [...] when cleared by occupational medicine Labs from [place] reviewed, very mild anemia,. Improved from last lab work here No further follow up with trauma is needed Tyshawn Ibarra MD Normal [facility] Progress Noteson 04-28-2023 Linen Manager Authentication Interface Message Text Hand Clinic Post-operative [...] Plan: XR FOREARM LEFT 2 VIEWS, OCCUP [id number]/TREAT SERVICE RQST, EXTERNAL - start ROM and volar resting splint SERVICE REQUEST FOR CARE OUTSIDE THE [employer] SYSTEM [employer]-14 light duty x 12 weeks post op X-rays on follow up: yes, L forearm Follow up: 6 weeks Carmela Guevara MD Hand and Upper Extremity Surgeon 04/28/23 Normal [facility] Progress Noteson 04-27-2023 Linen Manager Authentication Interface Message Text Patient was identified by name and date of .Removed left short arm splint without incident patient sent to x-ray. Normal [facility] XR FOREARM LEFT 2 VIEWSon XR [...] intact.] Left forearm MACRO: None Normal [facility] Anesthesia Acute Painon 02- Linen Manager Authentication Interface Message Text Teaching Physician Note: [...] ultrasound guidance Acute pain Keyshawn Lopez MD Tourist Adviser, PGY-4 Normal [facility] Anesthesia Postprocedure Rajni monsivais 04-14-2023 Linen Manager Authentication Interface Message Text Anesthesia Postoperative Assessment: [...] EVENTS: No notable events documented. Normal [facility] Anesthesia Transfer Of Careo n 04-14-2023 Linen Manager Authentication Interface Message Text Patient taken to [...] Carmela Guevara MD Anesthesiologist: Laura Solano MD CHAR BELT OPERATOR: Coreen Morris APRN-MODESTA Data Capture Specialist: Keyshawn Lopez MD REDUCTION, OPEN, RADIUS (Left: [...] was received. Keyshawn Lopez MD Normal [facility] Blood Attestationon 04-14-19 Linen Manager Authentication Interface Message Text Blood Attestation: ATTESTATION [...] of blood and/or blood components. Normal [facility] Brief Operative Noteon 04-14 Linen Manager Authentication Interface Message Text Brief Operative Note BV OR 3 Eduarda Williamson 32 year old male Surgical Contact Serial Number: [id number] Preoperative Diagnosis: Pre-op Diagnosis * Closed displaced comminuted fracture of shaft of left radius, initial encounter [S52.352A] Postoperative Diagnosis: * Closed displaced comminuted fracture of shaft of left radius, initial encounter [S52.352A] Procedures: LEFT radial shaft open reduction internal fixation Surgeon(s): Surgeon(s): Carmela Guevara MD Staff: Scrub: Nathaly Gonzalez RN Chip Mucker Nurse: Lesvia Knight RN; Sandy Yuen RN; Bang Rao RN Physician Battery Container Tester Aluminum: Jillian Read PA-C Mine Production Engineer: Boy Weir MD Anesthesia: LMA; local Anesthesiologist: Laura Solano MD CHAR BELT OPERATOR: Coreen Morris APRN-CRNA Data Capture Specialist: Keyshawn Lopez MD Specimen(s): * No specimens [...] Read PA-C 04/14/2023 3:32 PM Normal [facility] OP Noteon 04-14-2023 Linen Manager Authentication Interface Message Text Eduarda Williasmon [id number] 04/14/2023 Date of Surgery: 04/14/2023 PREOPERATIVE DIAGNOSIS: leftforearm radial shaft fracture POSTOPERATIVE DIAGNOSIS: Same. PROCEDURE:LEFT FOREARM open treatment radial shaft fracture with internal fixation Use and interpretation of operating fluoroscopy: Yes ATTENDING SURGEON: Carmela Guevara M.D. STAFF: Scrub: Nathaly Gonzalez RN Chip Mucker Nurse: Lesvia Knight RN; Sandy Yuen RN; Bang Rao RN Physician Battery Container Tester Aluminum: Jillian Read PA-C Mine Production Engineer: Boy Weir MD ANESTHESIA: Consult IV FLUIDS AND URINE: See anesthesia. ESTIMATED BLOOD LOSS: 1 mL. DRAINS: None. SPECIMENS: None. COMPLICATIONS: None. IMPLANTS: Implant Name Type Inv. Item Serial No. Semiconductor Development Technician Lot No. LRB No. Used Action PLATE 9 HOLE FOREARM [id number] - [id number] PLATE 9 HOLE FOREARM [id number] [place] Left 1 Implanted 3.5 X 16 SCREW [id number] - [id number] Screw 3.5 X 16 SCREW [id number] [place] Left 6 Implanted INDICATIONS: Patient suffered [...] the case. Carmela Guevara MD Normal [facility] US GUIDANCE NEEDLE PLACEMENT on 04-14-2023 [...] of the procedure and ultrasound. Normal [facility] US Guidance for placement of needle [...] Left brachial plexus nerve block, axillary approach [facility] Study observation (narrative) [facility] US Guidance for placement of needle in Unspecified body regionOrdered By: Keyshawn Lopez on 04-14-2023 [facility] Work Phone: Anesthesia Preprocedure Eval uationon 04-13-2023 Linen Manager Authentication Interface Message Text ASA: 2 No [...] in by EMS as a transfer from [facility] following 30 ft fall from ladder. 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 Trauma workup found SMA [...] with the plan for anesthesia. Normal [facility] CBC panel Auto (Bld)on 04-11 Erythrocyte distribution width (RBC) [Ratio] 14.0 % 11.5 - 14.5 % [facility] Hematocrit (Bld) [Volume fraction] 33.8 % Low 41.0 - 53.0 % [facility] Hemoglobin (Bld) [Mass/Vol] 11.3 g/dL Low 13.9 - 16.3 g/dL [facility] Interpretation and review of laboratory results Abnormal [facility] MCH (RBC) [Entitic mass] 29.0 pg 26.0 - 34.0 pg [facility] MCHC (RBC) [Mass/Vol] 33.5 g/dL 32.0 - 35.9 g/dL [facility] MCV (RBC) [Entitic vol] 87 fL 80 - 100 fL [facility] Platelet mean volume (Bld) [Entitic vol] 7.2 fL Low 7.5 - 11.2 fL [facility] Platelets (Bld) [#/Vol] 201 10*3/uL 150 - 400 K/uL [facility] RBC (Bld) [#/Vol] 3.90 10*6/uL Low [facility] WBC (Bld) [#/Vol] 8.9 10*3/uL 4.5 - 11.5 K/uL [facility] COMPLETE BLOOD COUNTon 04-11 Erythrocyte distribution width (RBC) [Ratio] 14.0 % Normal 11.5-14.5 [facility] Comment on above: Performed By: #### C H8 #### S PATHOLOGY LABORATORY [address] [place] [address], Hematocrit (Bld) [Volume fraction] 33.8 % Low 41.0-53.0 [facility] Comment on above: Performed By: #### C H8 #### S [facility] [address] [place] [address], Hemoglobin (Bld) [Mass/Vol] 11.3 g/dL Low 13.9-16.3 The [facility] Comment on above: Performed By: #### C H8 #### S [facility] [address] [place] [address], MCH (RBC) [Entitic mass] 29.0 pg Normal 26.0-34.0 The [facility] Comment on above: Performed By: #### C H8 #### [facility] [address] [place] [address], MCHC (RBC) [Mass/Vol] 33.5 g/dL Normal 32.0-35.9 [facility] Comment on above: Performed By: #### C H8 #### [facility] [address] [place] [address], [place], MCV (RBC) [Entitic vol] 87 fL Normal 80-100 The [facility] Comment on above: Performed By: #### C H8 #### [email or web address]] PATHOLOGY LAB[facility]ATORY [address] [place] [address], Platelet mean volume (Bld) [Entitic vol] 7.2 fL Low 7.5-11.2 [facility] Comment on above: Performed By: #### Reena H8 #### [facility] [[email or web address] PATHOLOGY LAB[facility]ATORY [address] [place] [address], Platelets (Bld) [#/Vol] 201 10*3/uL Normal 150-400 The [facility] Comment on above: Performed By: #### Reena H8 #### [email or web address] PATHOLOGY LAB[facility]ATORY [address] [place] [address], RBC (Bld) [#/Vol] 3.90 10*6/uL Low 4.50-5.90 [facility] Comment on above: Performed By: #### Reena H8 #### [facility] [[email or web address]] PATHOLOG[facility]ORY [address] [place] [address], WBC (Bld) [#/Vol] 8.9 10*3/uL Normal 4.5-11.5 [facility] Comment on above: Performed By: #### Reena H8 #### [facility] [[email or web address]] PATHOLOGY LAB[facility]ATORY [address] [place] [address], Care Plan Noteon 04-11-2023 Linen Manager Authentication Interface Message Text Problem: Routine Care: [...] met Outcome: Adequate for Discharge Normal The [facility] MAGNESIUMon 04-11-2023 Magnesium [Mass/Vol] 2.0 mg/dL Normal 1.9-2.7 [facility] Comment on above: Result Comment: Note updated reference ranges. Performed By: #### Philly Contreras, PHOS #### [facility] [address] [place] [address], [place], Magnesium [Mass/Vol] 2.0 mg/dL 1.9 - 2 .7 mg/dL [facility] Comment on above: Note updated referen ce ranges. No Panel Informationon 04-11 Interpretation and review of laboratory results Normal [facility] PHOSPHORUSon 04-11-2023 Phosphate [Mass/Vol] 4.5 mg/dL Normal 2.5-5.0 [facility] Comment on above: Result Comment: Note updated reference ranges. Performed By: #### Philly Contreras, PHOS #### [facility] [address] [place], [place], Phosphate [Mass/Vol] 4.5 mg/dL 2.5 - 5 .0 mg/dL [facility] Comment on above: Note updated referen ce ranges. Progress Noteson 04-11-2023 Linen Manager Authentication Interface Message Text ---- GENERAL INFORMATION --- TRAUMA FLOOR - STAFF NOTE Patient Name: Eduarda Williamson Admission Date: 04/08/2023 Patient seen and examined on 04/11/23 -- INTERVAL HISTORY/EVENTS Background: Eduarda Williamson is a 32 year old male with no significant PMHx brought in by EMS as a transfer from [facility] following a fall from height. 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 -LOC -headstrike -AC/AP. [facility] imaging demonstrated a small R PTX, SMA artery dissection with active hemorrhage and L forearm fracture and was transferred to [facility] for further care. 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 CTA redemonstrates the focal hematoma in the RLQ with no evidence of active extravasation. No PTX on imaging. Mild increase in the amount of hemoperitoneum which abuts loops of lbowel. Admitted to trauma [facility] for serial abdominal exams. LUE splinted by ortho. Hospital Course: 04/08/2023: Fall from . Tx'd to [facility] from [facility] for serial abdominal exams and orthopedic consultation. 04/09: Abdominal exams benign. H/H stable. Admitted to Trauma [facility]. 24 Hour Events: This is my first [...] Continue pulmonary toilet, encourage IS - Respiratory Health Professor Protocol - Maintain O2 Sats > 92% [...] off (more content not included)... Normal [facility] BASIC METABOLIC PANELon 04-01 Anion gap [Moles/Vol] 13 mmol/L Normal 10-20 [facility] Comment on above: Performed By: #### C H8 #### [facility] [address] [place] [address], [phone] Calcium [Mass/Vol] 8.9 mg/dL Normal 8.6-10.3 [facility] Comment on above: Result Comment: Note updated reference ranges. Performed By: #### C H8 #### [facility] [address] [place] [address], [place], Chloride [Moles/Vol] 102 mmol/L Normal 98-107 The [facility] Comment on above: Result Comment: Note updated reference ranges. Performed By: #### C H8 #### [facility] [address] [place], [place], CO2 [Moles/Vol] 26 mmol/L Normal 21-31 The [facility] Comment on above: Result Comment: Note updated reference ranges. Performed By: #### C H8 #### [facility] [address] [place], [place], Creatinine [Mass/Vol] 0.85 mg/dL Normal 0.70-1.30 The [facility] Comment on above: Result Comment: Note updated reference ranges. Performed By: #### C H8 #### S [facility] [address] [place] [address], [place], ESTIMATED GFR (CKD-EPI) 120 mL/min/1.73sqm Normal [...] Med 1 Vol. 385 Issue 19 Pages [id number] Performed By: #### C H8 #### [facility] [address] [place] [address], [place], Glucose [Mass/Vol] 87 mg/dL Normal 74-109 The [facility] Comment on above: Performed By: #### C H8 #### [facility] [address] [place] [address], [place], Potassium [Moles/Vol] 4.1 mmol/L Normal 3.5-5.0 [facility] Comment on above: Result Comment: Note updated reference ranges. Note updated reference ranges. Performed By: #### C H8 #### [facility] [address] [place], [place], Sodium [Moles/Vol] 137 mmol/L Normal 136-145 The [facility] Comment on above: Result Comment: Note updated reference ranges. Performed By: #### C H8 #### [facility] [address] [place], [place], Urea nitrogen [Mass/Vol] 13 mg/dL Normal 7-25 [facility] Comment on above: Result Comment: Note updated reference ranges. Performed By: #### C H8 #### [facility] [address] [place] [address], [place], Basic metabolic 2000 panelon 04-10-2023 Anion gap [Moles/Vol] 13 mmol/L 10 - 20 [facility] Calcium [Mass/Vol] 8.9 mg/dL 8.6 - 10. 3 mg/dL [facility] Comment on above: Note updated referen ce ranges. Chloride [Moles/Vol] 102 mmol/L 98 - 10 7 mmol/L [facility] Comment on above: Note updated referen ce ranges. CO2 [Moles/Vol] 26 mmol/L 21 - 31 mmol/L [facility] Comment on above: Note updated referen ce ranges. Creatinine [Mass/Vol] 0.85 mg/dL 0.70 - 1.30 mg/dL [facility] Comment on above: Note updated referen ce ranges. GFR/1.73 sq M.predicted CKD-EPI (S/P/Bld) [Vol rate/Area] 120 - PINF [facility] Comment on above: 2020 CKD EPI [...] Med 2020 Vol. 385 Issue 19 Pages [phone] Glucose [Mass/Vol] 87 mg/dL 74 - 109 [...] g/dL Low 13.9 - 16.3 g/dL [facility] Interpretation and review of laboratory results Abnormal [facility] MCH (RBC) [Entitic mass] 29.5 pg 26.0 - 34.0 pg [facility] MCHC (RBC) [Mass/Vol] 33.5 g/dL 32.0 - 35.9 g/dL [facility] MCV (RBC) [Entitic vol] 88 fL 80 - 100 fL [facility] Platelet mean volume (Bld) [Entitic vol] 7.8 fL 7.5 - 11.2 fL [facility] Platelets (Bld) [#/Vol] 185 10*3/uL 150 - 400 K/uL [facility] RBC (Bld) [#/Vol] 4.00 10*6/uL Low [facility] WBC (Bld) [#/Vol] 9.8 10*3/uL 4.5 - 11.5 K/uL [facility] COMPLETE BLOOD COUNTon 04-10 Erythrocyte distribution width (RBC) [Ratio] 13.9 % Normal 11.5-14.5 The [facility] Comment on above: Performed By: #### C BC #### [facility] [address] [place] [address], [phone] Hematocrit (Bld) [Volume fraction] 35.3 % Low 41.0-53.0 [facility] Comment on above: Performed By: #### C BC #### S [facility] [address] [place] [address], [place], Hemoglobin (Bld) [Mass/Vol] 11.8 g/dL Low 13.9-16.3 [facility] Comment on above: Performed By: #### C BC #### [email or web address] PATHOLOG[facility] [address], [place], MCH (RBC) [Entitic mass] 29.5 pg Normal 26.0-34.0 [facility] Comment on above: Performed By: #### C BC #### [email or web address] PATH[facility] [address], [place], MCHC (RBC) [Mass/Vol] 33.5 g/dL Normal 32.0-35.9 [facility] Comment on above: Performed By: #### C BC #### [email or web address] PATHOLOG[facility] [address], [place], MCV (RBC) [Entitic vol] 88 fL Normal 80-100 [facility] Comment on above: Performed By: #### C BC #### [email or web address] PATHOLOG[facility]ORY [address], [place], Platelet mean volume (Bld) [Entitic vol] 7.8 fL Normal 7.5-11.2 [facility] Comment on above: Performed By: #### C BC #### [email or web address] PATHOLOG[facility]ORY [address], [place], Platelets (Bld) [#/Vol] 185 10*3/uL Normal 150-400 [facility] Comment on above: Performed By: #### C BC #### [email or web address] PATHOLOG[facility] [address], [place], RBC (Bld) [#/Vol] 4.00 10*6/uL Low 4.50-5.90 [facility] Comment on above: Performed By: #### C BC #### [email or web address] PATHOLOG[facility] [address], [place], WBC (Bld) [#/Vol] 9.8 10*3/uL Normal 4.5-11.5 [facility] Comment on above: Performed By: #### C #### [facility] [address] [place], [phone] Care Plan Noteon 04-10-2023 Linen Manager Authentication Interface Message Text Problem: Routine Care: [...] achieved and maintained Outcome: Met Normal [facility] EKG 12 LEAD - PERFORMon 04-01 Diagnosis Sinus tachycardia Nonspecific T wave abnormality Abnormal ECG No previous ECGs available Confirmed by ROSALINA LIGHT ([id number]) on 04/10/2023 11:02:28 PM [facility] P wave [facility] by EKG 101 BPM [facility] P wave axis 40 degrees [facility] P-R Interval 150 ms [facility] Q-T interval 322 ms [facility] Q-T interval corrected 417 ms [facility] QRS axis 70 degrees [facility] QRS duration 104 ms [facility] T wave axis 10 degrees [facility] MAGNESIUMon 04-10-2023 Magnesium [Mass/Vol] 1.8 mg/dL Low 1.9-2.7 [facility] Comment on above: Result Comment: Note updated reference ranges. Performed By: #### C BC #### [facility] [address], [place], Interpretation and review of laboratory results Abnormal [facility] Magnesium [Mass/Vol] 1.8 mg/dL Low 1.9 - 2 .7 mg/dL [facility] Comment on above: Note updated referen ce ranges. No Panel Informationon 04-10 Interpretation and review of laboratory results Normal [facility] PHOSPHORUSon 04-10-2023 Phosphate [Mass/Vol] 4.4 mg/dL Normal 2.5-5.0 [facility] Comment on above: Result Comment: Note updated reference ranges. Performed By: #### C BC #### [facility] [[email or web address] PATHOLOG[facility]ORY [address], [place], Phosphate [Mass/Vol] 4.4 mg/dL 2.5 - 5 .0 mg/dL [facility] Comment on above: Note updated referen ce ranges. Progress Noteson 04-10-2023 Linen Manager Authentication Interface Message Text ---- GENERAL INFORMATION --- TRAUMA FLOOR - STAFF NOTE Patient Name: Eduarda Williamson Admission Date: 04/08/2023 Patient seen and examined on 04/10/23 -- INTERVAL HISTORY/EVENTS Background: Eduarda Williamson is a 32 year old male with no significant PMHx [facility]. 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 -LOC -headstrike -AC/AP. [facility] imaging demonstrated a small R PTX, SMA artery dissection with active hemorrhage and L forearm fracture and was transferred to [facility] for further care. 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 CTA redemonstrates the focal hematoma in the RLQ with no evidence of active extravasation. No PTX on imaging. Mild increase in the amount of hemoperitoneum which abuts loops of lbowel. Admitted to trauma [facility] for serial abdominal exams. LUE splinted by ortho. Hospital Course: 04/08/2023: Fall from . Tx'd to [facility] from [facility] for serial abdominal exams and orthopedic consultation. 04/09: Abdominal exams benign. H/H stable. Admitted to Trauma [facility]. 24 Hour Events: This is my first [...] UOP: 2075ml +3x Stool: 0x, Last BM COMPENSATION AND BENEFITS ADMINISTRATOR on 2.9.24 PHYSICAL EXAM Vital Signs: Vital [...] Continue pulmonary toilet, encourage IS - Respiratory Health Professor Protocol - Maintain O2 Sats > 92% GI/Diet: Mesenteric hematoma abutting loops of bowel. No bowel injury/active extravasation. Serial abdominal exams stable. Passing flatus, tolerating clears - Advance to regular diet - Continue bowel regimen of senna, miralax, p (more content not included)... Normal [facility] XR FOREARM LEFT 2 VIEWSon XR [...] ewsOrdered By: Jean Carlos Phipps on 04-10-2023 [employer] Work Phone: BASIC METABOLIC PANELon Anion gap [Moles/Vol] 12 mmol/L Normal 10-20 [facility] Comment on above: Performed By: #### C H8 #### [facility] [address] [place] [address], Calcium [Mass/Vol] 8.8 mg/dL Normal 8.6-10.3 [facility] Comment on above: Result Comment: Note updated reference ranges. Performed By: #### C H8 #### [facility] [address] [place] [address], Chloride [Moles/Vol] 106 mmol/L Normal 98-107 [facility] Comment on above: Result Comment: Note updated reference ranges. Performed By: #### C H8 #### [facility] [address] [place] [address], CO2 [Moles/Vol] 25 mmol/L Normal 21-31 [facility] Comment on above: Result Comment: Note updated reference ranges. Performed By: #### C H8 #### [facility] [address] [place] [address], Creatinine [Mass/Vol] 0.82 mg/dL Normal 0.70-1.30 [facility] Comment on above: Result Comment: Note updated reference ranges. Performed By: #### C H8 #### [facility] [address] [place] [address], ESTIMATED GFR (CKD-EPI) 121 mL/min/1.73sqm Normal >=60 [facility] Comment on above: Result Comment: 2020 [...] Med 1 Vol. 385 Issue 19 Pages [id number] Performed By: #### C H8 #### S [facility] LABORATORY [address] [place] [address], Glucose [Mass/Vol] 103 mg/dL Normal 74-109 [facility] Comment on above: Performed By: #### C H8 #### S [facility] LAB[facility]ATORY [address] [place] [address], Potassium [Moles/Vol] 4.3 mmol/L Normal 3.5-5.0 [facility] Comment on above: Result Comment: Note updated reference ranges. Note updated reference ranges. Performed By: #### C H8 #### S [facility] [address] [place] [address], Sodium [Moles/Vol] 139 mmol/L Normal 136-145 [facility] Comment on above: Result Comment: Note updated reference ranges. Performed By: #### C H8 #### [facility] [address] [place], [place], Urea nitrogen [Mass/Vol] 14 mg/dL Normal 7-25 [facility] Comment on above: Result Comment: Note updated reference ranges. Performed By: #### C H8 #### S [facility] [address] [place] [address], Basic metabolic 2000 panelon 04-09-2023 Anion gap [...] Med 1 Vol. 385 Issue 19 Pages [id number] Glucose [Mass/Vol] 103 mg/dL 74 - 109 [...] (RBC) [Ratio] 14.1 % Normal 11.5-14.5 [facility] Comment on above: Performed By: #### C BC #### [facility] [[email or web address] LAB[facility]ATORY [address] [place] [address], Hematocrit (Bld) [Volume fraction] 37.7 % Low 41.0-53.0 [facility] Comment on above: Performed By: #### C BC #### [email or web address] PATH[facility] LAB[facility]ATORY [address] [place] [address], Hemoglobin (Bld) [Mass/Vol] 12.5 g/dL Low 13.9-16.3 [facility] Comment on above: Performed By: #### C BC #### [facility] [[email or web address] PATHOLOGY LAB[facility]ATORY [address] [place] [address], MCH (RBC) [Entitic mass] 29.0 pg Normal 26.0-34.0 [facility] Comment on above: Performed By: #### C BC #### [email or web address] PATHOLOGY LAB[facility]ORY [address] [place] [address], MCHC (RBC) [Mass/Vol] 33.2 g/dL Normal 32.0-35.9 [facility] Comment on above: Performed By: #### C BC #### [email or web address] PATH[facility] LAB[facility]ORY [address] [place] [address], MCV (RBC) [Entitic vol] 87 fL Normal 80-100 [facility] Comment on above: Performed By: #### C BC #### [email or web address] PATH[facility] LAB[facility]ORY [address] [place] [address], Platelet mean volume (Bld) [Entitic vol] 7.3 fL Low 7.5-11.2 [facility] Comment on above: Performed By: #### C BC #### [facility] [[email or web address] PATHOLOGY LAB[facility]ATORY [address] [place] [address], Platelets (Bld) [#/Vol] 198 10*3/uL Normal 150-400 [facility] Comment on above: Performed By: #### C BC #### [facility] [[email or web address] PATHOLOGY LAB[facility]ATORY [address] [place] [address], RBC (Bld) [#/Vol] 4.31 10*6/uL Low 4.50-5.90 [facility] Comment on above: Performed By: #### C BC #### [email or web address] PATHOLOGY LAB[facility]ATORY [address] [place] [address], WBC (Bld) [#/Vol] 10.8 10*3/uL Normal 4.5-11.5 [facility] Comment on above: Performed By: #### C BC #### [email or web address] PATH[facility] LAB[facility]ORY [address] [place] [address], Erythrocyte distribution width (RBC) [Ratio] 14.3 % Normal 11.5-14.5 [facility] Comment on above: Performed By: #### C BC #### [email or web address] PATHOLOGY LAB[facility]ORY [address] [place] [address], Hematocrit (Bld) [Volume fraction] 38.2 % Low 41.0-53.0 [facility] Comment on above: Performed By: #### C BC #### [email or web address] PATH[facility] LAB[facility]ORY [address] [place] [address], Hemoglobin (Bld) [Mass/Vol] 12.7 g/dL Low 13.9-16.3 [facility] Comment on above: Performed By: #### C BC #### [email or web address] PATH[facility] LAB[facility]ORY [address] [place] [address], MCH (RBC) [Entitic mass] 29.1 pg Normal 26.0-34.0 [facility] Comment on above: Performed By: #### C BC #### [facility] [[email or web address] PATHOLOGY LAB[facility]ATORY [address] [place] [address], MCHC (RBC) [Mass/Vol] 33.3 g/dL Normal 32.0-35.9 [facility] Comment on above: Performed By: #### C BC #### [email or web address] PATHOLOGY LAB[facility]ATORY [address] [place] [address], MCV (RBC) [Entitic vol] 88 fL Normal 80-100 [facility] Comment on above: Performed By: #### C BC #### [facility] [[email or web address] PATH[facility]Y LAB[facility]ORY [address] [place] [address], Platelet mean volume (Bld) [Entitic vol] 7.4 fL Low 7.5-11.2 [facility] Comment on above: Performed By: #### C BC #### S PATHOLOGY LABORATORY [address] [place], [place], Platelets (Bld) [#/Vol] 208 10*3/uL Normal 150-400 [facility] Comment on above: Performed By: #### C BC #### S [facility] LABORATORY [address] [place], [place], RBC (Bld) [#/Vol] 4.37 10*6/uL Low 4.50-5.90 [facility] Comment on above: Performed By: #### C BC #### [email or web address] LAB[facility]ORY [address] [place], [place], WBC (Bld) [#/Vol] 11.6 10*3/uL High 4.5-11.5 The [facility] Comment on above: Performed By: #### C BC #### [email or web address] PATHOLOGY LAB[facility]ATORY [address] [place], [place], Care Plan Noteon 04-09-2023 Linen Manager Authentication Interface Message Text Problem: Routine Care: [...] will be met Outcome: Progressing Normal The [facility] Consultson 04-09-2023 Linen Manager Authentication Interface Message Text Expand All Collapse All Orthopaedic Surgery Consult H AND P Requesting Provider / Service: Trauma CC: L forearm pain HPI: RHD 32M with PMH of daily smoking presents to [facility] after fall down a ladder. Complaining of [...] in the fall. Charlee Coreas, PGY-4 Pager: [phone] Social Determinants of Health Financial Resource Strain: High Risk (12/04/2021) Received from [facility] Overall Financial Resource Strain (CARDIA) Difficulty of Paying Living Expenses: Hard Food Insecurity: Food Insecurity Present (12/04/2021) Received from [facility] Hunger Vital Sign Worried About Running Out of Food in the Last Year: Often true Ran Out of Food in the Last Year: Often true Transportation Needs: No Transportation Needs (12/04/2021) Received from [facility] PRAPARE - Transportation Lack of Transportation (Medical): No Lack of Transportation (Non-Medical): No No Known Allergies No current facility-administered medications for this encounter. Current Outpatient Medications: raNITIdine (ZANTAC) 75 MG tablet, Take 1 Tablet by mouth 2 times daily., Disp: 60 Tablet, Rfl: 3 ergocalciferol (DRISDOL) 1.25 MG (40347 UT) capsule, Take 1 Capsule by mouth [...] can plan on outpatient surgical management - NWKait GARCIA STS 04/08/23 This consult was seen and staffed within 30 minutes of the initial consult. Plan was discussed with attending surgeon Dr. Ismael Renee MD Resident, PGY-2 Department of Orthopaedic Surgery For questions/issues: Patient will be followed by the Hand team, at 0700 the day following initial consultation. Please page: Ortho Hand Team: Flor Dunham, PGY4: [phone] Between 5pm-7am, week (more content not included)... Normal [facility] LACTIC ACIDon 04-09-2023 CR LACT 1.2 mmol/L Normal 0.5-1.6 [facility] Comment on above: Performed By: #### L ACT ####[facility] [id number] [place], [id number] LACTIC ACIDOrdered By: Alisia Paris on 04-09-2023 Interpretation and review of laboratory results Normal [facility] Lactate [Moles/Vol] 1.2 mmol/L 0.5 - 1. 6 mmol/L [facility] Progress Noteson 04-09-2023 Linen Manager Authentication Interface Message Text Division of Trauma, Surgical Critical Care, EGS Ticket to Roll Note . Provider Called Report To (Enter Provider Name, Service, and Time): Leandra Melania. Trauma Surgery. 1936, who is the RUP. The patient is transferring from ED, room # 48, to Trauma [address], room # 8-710. The patient was added to the Trauma Surgery list. Tiara Haji MD RUP = Receiving unit provider RNF = Regular nursing floor Normal The [facility] Linen Manager Authentication Interface Message Text --- GENERAL INFORMATION --- TRAUMA FLOOR - STAFF NOTE Patient seen and examined on 04/09/2023 Patient Name: Eduarda Williamson Admission Date: 04/08/2023 -- INTERVAL HISTORY/EVENTS Background: Eduarda Williamson is a 32 year old male (healthy) brought in by EMS as a transfer from [facility] after a fall from height. Reports he was working on a [employer] pole and fell off the top of [...] by orthopedic surgery with splint [facility] to [facility]. 24-hour Events: Patients abdominal exam was stable [...] as a CAT 2 trauma transfer from [facility] after a fall from 30 ft. Found [...] Jonathon Pineda MD PGY1 Trauma Surgery Pager: [phone] Teaching Physician Note: I saw and evaluated [...] and Emergency General Surgery Department of Surgery [facility] Pager: [phone] Normal [facility] Linen Manager Authentication Interface Message Text Serial abdominal exam at this time: soft non tender without guarding or rebound and states abdominal pain is improving Hiro Porter, DO Normal [facility] Linen Manager Authentication Interface Message Text Serial abdominal exam at this time: soft non tender without guarding or rebound Hiro Porter, DO Normal [facility] XR Radius and Ulna - left Vi ewson 04-09-2023 Radiology Study observation (narrative) [facility] ABO RH TYPEon 04-08-2023 ABO and Rh group Nom (Bld) Blood group O Rh(D) positive Normal [facility] Comment on above: Performed By: #### C BC #### [facility] [address] [place], [place], [facility] ABO/Rh Retypeon 04-08-2023 ABO/RH Recheck Result Positive Normal [facility] Comment on above: Result Comment: PERF ORMED BY: [facility] [address] [place] [address] PATHOLOGIST REEL FILM INSPECTOR ZENY CURRIE M.D. AMYLASEon 04-08-2023 DEMETRICE 33 IU/L Normal 28-100 [facility] Comment on above: Performed By: #### C BC #### S PATHOLOGY LABORATORY [address] [place], [place], Amylase [Catalytic activity/Vol] 33 U/L [facility] Activated partial thrombopla stin time (aPTT) in platelet poor plasma by coagulation aOrdered By: Leonides Walker on 04-08-2023 aPTT Coag (PPP) [Time] 27.4 s 25.1-36.5 [facility] Comment on above: A hematocrit value g reater than 55% may lead to inaccurate results in coagulation testing. Patients having hematocrit values >55% require a special collection tube for coagulation studies. Please contact the laboratory at [phone] for redraw instructions. AdmissionCareon 04-08-2023 Linen Manager Authentication Interface Message Text AdmissionCare Guideline: Abdominal [...] AdmissionCare documentation entered by: Luis Eduardo Buenrostro [facility], 27th edition, Copyright ??? 2022 [facility] [employer] [facility] All Rights Reserved. [id number]:32:11-05:00 Normal [facility] Alanine aminotransferase [En zymatic activity/volume] in Serum or PlasmaOrdered By: Leonides Walker on 04-08-2023 ALT [Catalytic activity/Vol] 57 U/L High 7-52 [facility] Comment on above: Performed By: #### P T, CBC, CK, CMP, PTT, ETOH, LIPASE #### [facility] [address] Albumin [Mass/volume] in Ser um or Plasma by Bromocresol green (BCG) dye binding methoOrdered By: Leonides Walker on 04-08-2023 Albumin BCG dye [Mass/Vol] 4.2 g/dL 3.5-5.7 [facility] Alkaline phosphatase [Enzyma tic activity/volume] in Serum or PlasmaOrdered By: Leonides Walker on 04-08-2023 ALP [Catalytic activity/Vol] 66 U/L Normal 34-104 [facility] Comment on above: Performed By: #### P T, CBC, CK, CMP, PTT, ETOH, LIPASE #### [address] Amphetamine Screen Ql (U)Ord ered By: Leonides Walker on 04-08-2023 Amphetamines Ql (U) Negative Negative [facility] Aspartate aminotransferase [ Enzymatic activity/volume] in Serum or PlasmaOrdered By: Leonides Walker on 04-08-2023 AST [Catalytic activity/Vol] 41 U/L High 13-39 [facility] Comment on above: Performed By: #### P T, CBC, CK, CMP, PTT, ETOH, LIPASE #### [address] Automated basophil %Ordered By: Leonides Walker on 04-08-2023 Basophils/100 WBC (Bld) 1.5 % Normal . [facility] Comment on above: Performed By: #### P T, CBC, CK, CMP, PTT, ETOH, LIPASE #### [address] Automated basophil countOrde red By: Leonides Walker on 04-08-2023 Basophils (Bld) [#/Vol] 0.2 10*3/uL Normal 0.0-0.2 [facility] Comment on above: Result Comment: PERF ORMED BY: [place] [address] PATHOLOGIST REEL FILM INSPECTOR ZENY CURRIE M.D. Performed By: #### P T, CBC, CK, CMP, PTT, ETOH, LIPASE #### [address] Automated blood monocyte cou ntOrdered By: Leonides Walker on 04-08-2023 Monocytes (Bld) [#/Vol] 0.7 10*3/uL Normal 0.0-0.8 [facility] Comment on above: Performed By: #### P T, CBC, CK, CMP, PTT, ETOH, LIPASE #### [address] Automated eosinophil %Ordere d By: Leonides Walker on 04-08-2023 Eosinophils/100 WBC (Bld) 1.2 % Normal . [facility] Comment on above: Performed By: #### P T, CBC, CK, CMP, PTT, ETOH, LIPASE #### [address] Automated eosinophil countOr dered By: Leonides Walker on 04-08-2023 Eosinophils (Bld) [#/Vol] 0.1 10*3/uL Normal 0.0-0.45 [facility] Comment on above: Performed By: #### P T, CBC, CK, CMP, PTT, ETOH, LIPASE #### [address] Automated monocyte %Ordered By: Leonides Walker on 04-08-2023 Monocytes/100 WBC (Bld) 6.9 % Normal . [facility] Comment on above: Performed By: #### P T, CBC, CK, CMP, PTT, ETOH, LIPASE #### [address] Automated neutrophil %Ordere d By: Leonides Walker on 04-08-2023 Neutrophils/100 WBC (Bld) 54.4 % Normal . [facility] Comment on above: Performed By: #### P T, CBC, CK, CMP, PTT, ETOH, LIPASE #### [facility] [address] BASIC METABOLIC PANELon Anion gap [Moles/Vol] 13 mmol/L Normal 10-20 [facility] Comment on above: Performed By: #### C H8 #### S PATHOLOGY LABORATORY [address] [place] [address], Calcium [Mass/Vol] 9.4 mg/dL Normal 8.6-10.3 [facility] Comment on above: Result Comment: Note updated reference ranges. Performed By: #### C H8 #### [facility] [address] [place] [address], Chloride [Moles/Vol] 106 mmol/L Normal 98-107 [facility] Comment on above: Result Comment: Note updated reference ranges. Performed By: #### C H8 #### S [facility] LAB[facility]ATORY [address] [place] [address], CO2 [Moles/Vol] 26 mmol/L Normal 21-31 [facility] Comment on above: Result Comment: Note updated reference ranges. Performed By: #### C H8 #### [facility] [address] [place] [address], Creatinine [Mass/Vol] 0.86 mg/dL Normal 0.70-1.30 [facility] Comment on above: Result Comment: Note updated reference ranges. Performed By: #### C H8 #### S PATHOLOGY LABORATORY [address] [place] [address], ESTIMATED GFR (CKD-EPI) 119 mL/min/1.73sqm Normal >=60 [facility] Comment on above: Result Comment: 2020 [...] Med 2020 Vol. 385 Issue 19 Pages [id number] Performed By: #### C H8 #### S PATHOLOGY LABORATORY [address] [place] [address], Glucose [Mass/Vol] 106 mg/dL Normal 74-109 [facility] Comment on above: Performed By: #### C H8 #### S PATHOLOGY LABORATORY [address] [place] [address], Potassium [Moles/Vol] 3.9 mmol/L Normal 3.5-5.0 [facility] Comment on above: Result Comment: Note updated reference ranges. Note updated reference ranges. Performed By: #### C H8 #### S [facility] LAB[facility]ATORY [address] [place] [address], Sodium [Moles/Vol] 141 mmol/L Normal 136-145 [facility] Comment on above: Result Comment: Note updated reference ranges. Performed By: #### C H8 #### S PATHOLOGY LABORATORY [address] [place] [address], Urea nitrogen [Mass/Vol] 14 mg/dL Normal 7-25 [facility] Comment on above: Result Comment: Note updated reference ranges. Performed By: #### C H8 #### [email or web address] PATHOLOGY LABORATORY [address] [place] [address], Barbiturates [Presence] in U rine by Screen methodOrdered By: Leonides Walker on 04-08-2023 Barbiturates Screen Ql (U) Negative Negative [facility] Basic metabolic 2000 panelon 04-08-2023 Anion gap [...] Med 2020 Vol. 385 Issue 19 Pages [phone] Glucose [Mass/Vol] 106 mg/dL 74 - 109 [...] on above: Note updated referen ce ranges. Benzodiazepines Screen Ql (U )Ordered By: Leonides Walker on 04-08-2023 Benzodiazepines Ql (U) Negative Negative [facility] Benzoylecgonine [Presence] i n Urine by Screen methodOrdered By: Leonides Walker on 04-08-2023 Benzoylecgonine Screen Ql (U) Negative Negative [facility] Bilirubin.total [Mass/volume ] in Serum or PlasmaOrdered By: Leonides Walker on 04-08-2023 Bilirubin [Mass/Vol] 0.4 mg/dL Normal 0.3-1.0 [facility] Comment on above: Performed By: #### P T, CBC, CK, CMP, PTT, ETOH, LIPASE #### [facility] [address] CBC WITH DIFFERENTIALon 02-0 Basophils (Bld) [#/Vol] 0.08 10*3/uL Normal 0.00-0.20 [facility] Comment on above: Performed By: #### C BCDSAT ####S PATHOLOGY [id number] [place], [place], Basophils/100 WBC (Bld) 0.3 % Normal <=1.9 [facility] Comment on above: Performed By: #### C BCDSAT ####[email or web address] PATHOLOGY [id number] [place], [place], Eosinophils (Bld) [#/Vol] 0.06 10*3/uL Normal 0.00-0.70 [facility] Comment on above: Performed By: #### C BCDSAT ####[email or web address] PATHOLOGY [id number] [place], Eosinophils/100 WBC (Bld) 0.3 % Normal 0.1-4.0 [facility] Comment on above: Performed By: #### C BCDSAT ####[facility] [[email or web address] PATHOLOGY [id number] [place], [place], Erythrocyte distribution width (RBC) [Ratio] 14.2 % Normal 11.5-14.5 [facility] Comment on above: Performed By: #### C BCDSAT ####[facility] [[email or web address]] PATHOLOGY [id number] [place], Hematocrit (Bld) [Volume fraction] 43.3 % Normal 41.0-53.0 [facility] Comment on above: Performed By: #### C BCDSAT ####[email or web address] PATHOLOGY [id number] [place], Hemoglobin (Bld) [Mass/Vol] 14.1 g/dL Normal 13.9-16.3 [facility] Comment on above: Performed By: #### C BCDSAT ####[email or web address] PATHOLOGY [id number] [place], Lymphocytes (Bld) [#/Vol] 2.14 10*3/uL Normal 1.00-4.80 [facility] Comment on above: Performed By: #### C BCDSAT ####[email or web address] PATHOLOGY [id number] [place], Lymphocytes/100 WBC (Bld) 9.5 % Low 24.0-44.0 [facility] Comment on above: Performed By: #### C BCDSAT ####[facility] [[email or web address] PATHOLOGY [id number] [place], MCH (RBC) [Entitic mass] 28.6 pg Normal 26.0-34.0 [facility] Comment on above: Performed By: #### C BCDSAT ####[email or web address] PATHOLOGY [id number] [place], MCHC (RBC) [Mass/Vol] 32.6 g/dL Normal 32.0-35.9 [facility] Comment on above: Performed By: #### C BCDSAT ####[email or web address] PATHOLOGY [id number] [place], MCV (RBC) [Entitic vol] 88 fL Normal 80-100 [facility] Comment on above: Performed By: #### C BCDSAT ####[email or web address] PATHOLOGY [id number] [place], MONOCYTE DISTRIBUTION WIDTH 18 Normal <=20 [facility] Comment on above: Performed By: #### C BCDSAT ####[email or web address] PATHOLOGY [id number] [place], [place], Monocytes (Bld) [#/Vol] 1.30 10*3/uL High 0.20-1.00 [facility] Comment on above: Performed By: #### C BCDSAT ####[email or web address] PATHOLOGY [id number] [place], [place], Monocytes/100 WBC (Bld) 5.8 % Normal 2.0-11.0 [facility] Comment on above: Performed By: #### C BCDSAT ####[facility] [[email or web address]] PATHOLOGY [id number] [place], [place], Neutrophils (Bld) [#/Vol] 18.95 10*3/uL High 1.50-8.00 [facility] Comment on above: Performed By: #### C BCDSAT ####[facility] [[email or web address]] PATHOLOGY [id number] [place], [place], Neutrophils/100 WBC (Bld) 84.2 % High 31.0-76.0 [facility] Comment on above: Performed By: #### Reena NIXAT ####[facility] [[email or web address]] PATHOLOGY [id number] [place] [address], Platelet mean volume (Bld) [Entitic vol] 7.4 fL Low 7.5-11.2 [facility] Comment on above: Performed By: #### Reena NIXAT ####[facility] [[email or web address]] PATHOLOGY [id number] [place] [address], Platelets (Bld) [#/Vol] 245 10*3/uL Normal 150-400 [facility] Comment on above: Performed By: #### Reena NIXAT ####[facility] [[email or web address]] PATHOLOGY [id number] [place] [address], RBC (Bld) [#/Vol] 4.93 10*6/uL Normal 4.50-5.90 [facility] Comment on above: Performed By: #### Reena NIXAT ####[facility] [[email or web address]] PATHOLOGY [id number] [place] [address], WBC (Bld) [#/Vol] 22.5 10*3/uL High 4.5-11.5 [facility] Comment on above: Performed By: #### Reena NIXAT ####[facility] [[email or web address]] PATHOLOGY [id number] [place] [address], Basophils (Bld) [#/Vol] 0.08 10*3/uL 0.00 - [...] [#/Vol] 245 10*3/uL 150 - 400 K/uL [facility] RBC (Bld) [#/Vol] 4.93 10*6/uL [facility] WBC (Bld) [#/Vol] 22.5 10*3/uL High 4.5 - 11.5 K/uL [facility] T-SPINE/L-SPINE W/O CONTR Rosie 04-08-2023 CT [...] or lumbar spine. MACRO: None Normal [facility] CT Thoracic and lumbar spine WO contraston 04-08-2023 EXAMINATION: CT T-SPINE/L-SPINE W/O CONTRASTPRO/PRO 04/08/2023 05:42 PM CLINICAL HISTORY: Fall more than 10 feet ASSOCIATED DIAGNOSIS: Fall more than 10 feet ORDERING PROVIDER: TIARA LIOdimax TECHNOLOGISTS NOTE: COMPARISON: None TECHNIQUE: Thin axial [...] the thoracic or lumbar spine. MACRO: None [facility] CT Thoracic and lumbar spine WO contrastOrdered By: Jeancarlos Gonzalez on 04-08-2023 [facility] Work Phone: CT abdomen pelvis w conon CT abdomen pelvis w con [facility] [place] [address] [place] [address] CT Scan Report Signed Patient: Eduarda Williamson MR#: [id number] 860 : 1990 Acct:[id number] Age/Sex: 32 / M ADM Date: 04/08/23 Loc: ER Room: Type: PRE ER Attending Dr: Copies to: Leonides Walker DO Ordering Provider: Leonides Walker DO Date of Service: 04/08/23 CT/CT abdomen pelvis w con: traumatic injury ([id number]) CT/CT chest w con: traumatic injury CT [...] Naga Orlando M.D.04/08/2023 3:23 PM Dictation Location: [place] [address] Transcribed By: [facility] 04/08/23 1523 Dictated By: Naga Orlando II, MD 04/08/23 1506 Signed By: 04/08/23 1523 Normal [facility] CT cervical spine wo conon 0 04-08-2023 CT cervical spine wo con [facility] [place] [address] CT Scan Report Signed Patient: Eduarda Williamson MR#: [id number] 860 : 1990 Acct:[id number] Age/Sex: 32 / M ADM Date: 04/08/23 Loc: ER Room: Type: PRE ER Attending Dr: Copies to: Leonides Walker DO Ordering Provider: Leonides Walker DO Date of Service: 04/08/23 CT/CT cervical spine wo con: traumatic injury ([id number]) CT/CT head/brain wo con: traumatic injury CT [...] Naga Orlando M.D.04/08/2023 3:06 PM Dictation Location: [place] [address] Transcribed By: [facility] 04/08/23 1506 Dictated By: Naga Orlando II, MD 04/08/23 1452 Signed By: 04/08/23 1506 Normal [facility] [place] [facility] CTA CHEST/ABD/PELVIS W/on CTA CHEST/ABD/PELVIS W/ EXAMINATION: [...] from contrast bolus. MACRO: None Normal [facility] CTA Chest vessels and Abdomi nal vessels and Pelvis vessels W contrast IVOrdered By: Juan Daniel Hernandes on 04-08-2023 CT DLP 2532.7 (mGy.cm) [facility] CenterL[facility] CapitalMer[facility] Work Phone: CT Series Entire body,Entire body,Entire body,Entire body,Entire body [facility] Work Phone: CTDI VOL 5.3 (mGy),36.2 (mGy) ,12.3 (mGy),11.2 (mGy),12.3 (mGy) [facility] Work Phone: PHANTOM TYPE IEC Body Dosimetry Phantom,IEC Body Dosimetry Phantom,IEC Body Dosimetry Phantom,IEC Body Dosimetry Phantom,IEC Body Dosimetry Phantom [facility] Work Phone: [facility] Work Phone: CTA Chest vessels and Abdomi [...] Walker on 04-08-2023 Calcium [Mass/Vol] 9.4 mg/dL Normal 8.6-10.3 [facility] Comment on above: Performed By: #### P T, CBC, CK, CMP, PTT, ETOH, LIPASE #### [address] Cannabinoids [Presence] in U rine by Screen methodOrdered By: Leonides Walker on 04-08-2023 Cannabinoids Screen Ql (U) Negative Negative [facility] Comment on above: These are unconfirme d results and should not be used for legal purposes. Drug Cut-Off Concentration: AMPH 1000 ng/mL SHIRLENE 200 ng/mL AJAY 200 ng/mL COCM 300 ng/mL OP 300 ng/mL PCP 25 ng/mL THC 20 ng/mL Carbon dioxide, total [Moles /volume] in Serum or PlasmaOrdered By: Leonides Walker on 04-08-2023 CO2 [Moles/Vol] 21.2 mmol/L Normal 21.0-31.0 [facility] Comment on above: Performed By: #### P T, CBC, CK, CMP, PTT, ETOH, LIPASE #### [facility] [address] [place] [address] [place] Chloride [Moles/volume] in S sha or PlasmaOrdered By: Leonides Walker on 04-08-2023 Chloride [Moles/Vol] 106 mmol/L Normal 98-107 [facility] Comment on above: Performed By: #### P T, CBC, CK, CMP, PTT, ETOH, LIPASE #### [facility] [address] [place] [address] [facility] Complete Blood Count Auto Di ffon 04-08-2023 Mean Corpuscular HGB Conc 33.4 g/dL Normal 32.5-35.6 [facility] Comment on above: Performed By: #### P T, CBC, CK, CMP, PTT, ETOH, LIPASE #### [address] Monocytes/100 WBC (Bld) 16.89 % Normal 0.00-20.00 [facility] Comment on above: Performed By: #### P T, CBC, CK, CMP, PTT, ETOH, LIPASE #### [address] NRBC% 0.1 /100{WBC} Normal 0-0.5 [facility] Comment on above: Performed By: #### P T, CBC, CK, CMP, PTT, ETOH, LIPASE #### [address] Comprehensive Metabolic Pane airam 04-08-2023 Albumin [Mass/Vol] 4.2 g/dL Normal 3.5-5.7 [facility] Comment on above: Performed By: #### P T, CBC, CK, CMP, PTT, ETOH, LIPASE #### [address] Creatinine Clr Calc Pharmacy 152.91 Normal [facility] Comment on above: Performed By: #### P T, CBC, CK, CMP, PTT, ETOH, LIPASE #### [address] GFR/1.73 sq M.predicted MDRD (S/P/Bld) [Vol rate/Area] mL/min/{1.73_m2} Normal [facility] Comment on above: Performed By: #### P T, CBC, CK, CMP, PTT, ETOH, LIPASE #### [address] Creatine kinase [Enzymatic a ctivity/volume] in Serum or PlasmaOrdered By: Leonides Walker on 04-08-2023 CK [Catalytic activity/Vol] 166 U/L Normal 30-223 [facility] Comment on above: Result Comment: PERF ORMED BY: [facility] [address] [facility] [place] [address] PATHOLOGIST REEL FILM INSPECTOR ZENY CURRIE M.D. Performed By: #### P T, CBC, CK, CMP, PTT, ETOH, LIPASE ####[address] Creatinine [Mass/volume] in Serum or PlasmaOrdered By: Leonides Walker on 04-08-2023 Creatinine [Mass/Vol] 0.91 mg/dL Normal 0.70-1.30 [facility] Comment on above: Performed By: #### P T, CBC, CK, CMP, PTT, ETOH, LIPASE #### [address] Drug Screen,Urineon 04-08-19 24 Amphetamine Screen,Urine Negative Normal Negative [facility] Comment on above: Performed By: #### U RDS ####[address] Barbiturate Screen,Urine Negative Normal Negative [facility] Comment on above: Performed By: #### U RDS ####[address] Benzodiazepines Screen,Urine Negative Normal Negative [facility] Comment on above: Performed By: #### U RDS ####[address] Cannabinoid Screen,Urine Negative Normal Negative [facility] Comment on above: Result Comment: Thes e are unconfirmed results and should not be used for legal purposes. Drug Cut-Off Concentration: AMPH 1000 ng/mL SHIRLENE 200 ng/mL AJAY 200 ng/mL COCM 300 ng/mL OP 300 ng/mL PCP 25 ng/mL THC 20 ng/mL PERFORMED BY: [facility] [address] [place] [address] PATHOLOGIST REEL FILM INSPECTOR ZENY CURRIE M.D. Performed By: #### U RDS ####[address] Cocaine Screen,Urine Negative Normal Negative [facility] Comment on above: Performed By: #### U RDS ####[facility] [place] [id number] [facility] Opiate Screen,Urine Positive High Negative [facility] Comment on above: Performed By: #### U RDS ####[facility] [place] [id number] [facility] Phencyclidine Screen,Urine Negative Normal Negative [facility] Comment on above: Performed By: #### U RDS ####[facility] [place] [id number] [facility] ECG 12 lead ECGon 04-08-2023 ECG 12 lead ECG [facility] [address] [place] [address] Electrocardiograph Report Signed Patient: Eduarda Williamson MR#: [id number] : 1990 Acct:[id number] Age/Sex: 32 / M ADM Date: 04/08/23 Loc: ER Room: Type: [facility] ER Attending Dr: Ordering Provider: Leonides Walker [...] sinus rhythm Confirmed by Leonides WALKER DO ([id number]) on 04/08/2023 4:53:54 PM Referred By: Electronically Signed By:Leonides WALKER DO Transcribed By: MUS Signed By Leonides Walker DO 0 04/08/23 1653 Normal [facility] ED Provider Noteson 04-08-19 Linen Manager Authentication Interface Message Text -- Attestation signed [...] Patient origin: Transfer from outside facility - [facility] The history is provided by the Patient and MLF. Eduarda Williamson is a 32 year old male presenting to the ED for fall from 30ft. Patient was working on [employer] pole when he fell and landed on his back on concrete, denies LOC. 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 MLF reports patient tachycardic, otherwise vss en route. 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 Anticoagulation/Antiplatel et use: denies [...] by Libby Rolon acting as Scribe for Dr. Seyller, Nona. All medical record entries made by the Scribe were at my direction and personally dictated by me. I have reviewed the rec (more content not included)... Normal [facility] ED Triage Noteson 04-08-2023 Linen Manager Authentication Interface Message Text Prehospital Medications: TXA Dilandrew Ruiz Normal The [facility] Linen Manager Authentication Interface Message Text 32 y/o M fall off telephone pole aprox 30 ft. Transfer from [facility] Normal [facility] ETHANOL, SERUMon 04-08-2023 Ethanol [Mass/Vol] mg/dL Normal None Detected [facility] Comment on above: Performed By: #### C H8 #### [facility] [address] [place] [address], [phone] Ethanol [Mass/Vol] mg/dL None Detected mg/dL [facility] Erythrocyte distribution wid th [Ratio] by Automated countOrdered By: Leonides Walker on 04-08-2023 Erythrocyte distribution width (RBC) [Ratio] 13.8 % Normal 12.0-14.8 [facility] Comment on above: Performed By: #### P T, CBC, CK, CMP, PTT, ETOH, LIPASE #### [facility] [address] [place], [place] [id number] [place] Erythrocytes [#/volume] in B lood by Automated countOrdered By: Leonides Walker on 04-08-2023 RBC (Bld) [#/Vol] 4.88 10*6/uL Normal 3.90-5.60 [facility] Comment on above: Performed By: #### P T, CBC, CK, CMP, PTT, ETOH, LIPASE #### [facility] [address] [place] [id number] [place] Ethanol [Mass/volume] in Ser um or PlasmaOrdered By: Leonides Walker on 04-08-2023 Ethanol [Mass/Vol] mg/dL Normal [facility] Comment on above: Performed By: #### P T, CBC, CK, CMP, PTT, ETOH, LIPASE #### [facility] [address] [place] [id number] [place] Ethanol [Mass/Vol] TNP [facility] Comment on above: Test not performed Ethyl Alcohol Profileon Percent Ethanol Not performed Normal [facility] Comment on above: Result Comment: PERF ORMED BY: [place] [address] PATHOLOGIST REEL FILM INSPECTOR ZENY CURRIE M.D. Performed By: #### P T, CBC, CK, CMP, PTT, ETOH, LIPASE #### [facility] [address] [place] [id number] [facility] Fresh Frozen Plasmaon 2023 Fresh Frozen Plasma ISSUED 04/08/23 1548 Normal [facility] Glucose [Mass/volume] in Ser um or PlasmaOrdered By: Leonides Walker on 04-08-2023 Glucose [Mass/Vol] 95 mg/dL Normal 70-100 [facility] Comment on above: ADA recommended refe rence rangeRandom Glucose Reference Range is dependent on time and content of last meal. Glucose of more than 200 mg/dL in a nonstressed, ambulatory subject supports the diagnosis of Diabetes Mellitus. Result Comment: [place] om Glucose Reference Range is dependent on time and content of last meal. Glucose of more than 200 mg/dL in a nonstressed, ambulatory subject supports the diagnosis of Diabetes Mellitus. ADA recommended reference range Performed By: #### P T, CBC, CK, CMP, PTT, ETOH, LIPASE #### [facility] [address] [place] [id number] [facility] H AND Matty 04-08-2023 Linen Manager Authentication Interface Message Text [facility] Department of Surgery Division of Trauma Surgery, Acute Care Surgery, Critical Care, and [place] TRAUMA SURGERY HISTORY AND PHYSICAL Eduarda Williamson [id number] BASIC INJURY INFORMATION: Level of activation: Category [...] in by EMS as a transfer from [facility] after a fall from height. Reports he [...] drug use Living status: Home Primary language: [place] Functional status: Independent Impairments: None Assistive Devices [...] miguel (more content not included)... Normal [facility] HEPATIC FUNCTION PANELon Albumin [Mass/Vol] 4.3 g/dL Normal 3.5-5.7 [facility] Comment on above: Order Comment: Note updated reference ranges. Performed By: #### C H8 #### [facility] [address] [place], [address] ALK 68 IU/L Normal 34-104 [facility] Comment on above: Order Comment: Note updated reference ranges. Performed By: #### C H8 #### [facility] [address] [facility] [place], ALT [Catalytic activity/Vol] 70 U/L High 7-52 [facility] Comment on above: Order Comment: Note updated reference ranges. Performed By: #### C H8 #### [facility] [[email or web address] PATHOLOGY LABORATORY [address] [place], [place], AST [Catalytic activity/Vol] 49 U/L High 13-39 [facility] Comment on above: Order Comment: Note updated reference ranges. Performed By: #### C H8 #### [facility] [[email or web address] PATHOLOGY LABORATORY [address] [place], [place], Bilirubin [Mass/Vol] 0.4 mg/dL Normal 0.3-1.0 [facility] Comment on above: Order Comment: Note updated reference ranges. Performed By: #### C H8 #### [facility] [[email or web address] PATHOLOGY LABORATORY [address] [place] [address], Bilirubin.direct [Mass/Vol] 0.08 mg/dL Normal 0.03-0.18 The [facility] Comment on above: Order Comment: Note updated reference ranges. Performed By: #### C H8 #### [facility] [[email or web address] PATHOLOGY LABORATORY [address] [place] [address], Protein [Mass/Vol] 6.6 g/dL Normal 6.0-8.3 [facility] Comment on above: Order Comment: Note updated reference ranges. Performed By: #### C H8 #### [facility] [[email or web address] PATHOLOGY LABORATORY [address] [place] [address], Albumin [Mass/Vol] 4.3 g/dL 3.5 - 5.7 g/dL [facility] ALP [Catalytic activity/Vol] 68 U/L [facility] ALT [Catalytic activity/Vol] 70 U/L High [facility] AST [Catalytic activity/Vol] 49 U/L High [facility] Bilirubin [Mass/Vol] 0.4 mg/dL 0.3 - 1 .0 mg/dL [facility] Bilirubin.direct [Mass/Vol] 0.08 mg/dL 0.03 - 0.18 mg/dL [facility] Interpretation and review of laboratory results Abnormal [facility] Protein [Mass/Vol] 6.6 g/dL 6.0 - 8.3 g/dL [facility] Note updated referen ce ranges. [facility] HIV 1 and 2 Ab and HIV 1 p24 Ag panel IAon 04-08-2023 HIV 1+2 Ab+HIV1 p24 Ag IA Ql Non-Reactive Non-Reacti ve [facility] Comment on above: No laboratory eviden ce for HIV Infection. Negative result does not rule out acute HIV infection. If acute HIV infection is suspected, recommend ordering an HIV-1 RNA quanitification test. Interpretation and review of laboratory results Normal [facility] HIV Information: [place] Rev. code 3701.243(E): This information has been [...] release of HIV test results or diagnoses. [facility] HIV1 HIV2 AGAB SCRNon 2023 HIV AG-AB SCREEN Non-Reactive Normal Non-Reacti ve [facility] Comment on above: Order Comment: HIV I nformation: ???[place] Rev. code 3701.243(E):This information has been disclosed [...] #### C H8 #### [facility] [address] [place] [address], [phone] Hematocrit [Volume Fraction] of Blood by Automated countOrdered By: Leonides Walker on 04-08-2023 Hematocrit (Bld) [Volume fraction] 41.7 % Normal 38.8-50.0 [facility] Comment on above: Performed By: #### P T, CBC, CK, CMP, PTT, ETOH, LIPASE #### [facility] [address] [place] [id number] [facility] Hemoglobin [Mass/volume] in BloodOrdered By: Leonides Walker on 04-08-2023 Hemoglobin (Bld) [Mass/Vol] 13.9 g/dL Normal 13.0-17.0 [facility] Comment on above: Performed By: #### P T, CBC, CK, CMP, PTT, ETOH, LIPASE #### [facility] [address] [place] [phone] [facility] INR in Platelet poor plasma by Coagulation assayOrdered By: Leonides Walker on 04-08-2023 INR Coag (PPP) [Relative time] 0.9 {INR} Normal [facility] Comment on above: INR Therapeutic Rang e A) Pre- and Peroperative OAT started two weeks before surgery. NOT HIP SURGERY: 1.5 - 2.5 HIP SURGERY: 2 - 3B) Primary and secondary prevention of venous THROMBOSIS: 2 - 3C) Active venous thrombosis, pulmonary embolismand prevention of recurrent venous thrombosis: 2 - 3D) Prevention of arterial thromboembolismincluding patients with mechanical heart valves: 3 - 4.5 Result Comment: INR Therapeutic Range A) Pre- [...] CBC, CK, CMP, PTT, ETOH, LIPASE #### [facility] [address] [place], [place] [id number] [facility] LACTIC ACIDon 04-08-2023 CR LACT 1.6 mmol/L Normal 0.5-1.6 [facility] Comment on above: Performed By: #### L ACT #### [facility] [address] [place] [address], [phone] LACTIC ACIDOrdered By: Thiago Landaverde on 04-08-2023 Interpretation and review of laboratory results Normal [facility] Lactate [Moles/Vol] 1.6 mmol/L 0.5 - 1. 6 mmol/L [facility] LIPASEon 04-08-2023 LIP 8 IU/L Normal <128 [facility] Comment on above: Performed By: #### C H8 #### [facility] [address] [place], [address] Lipase [Catalytic activity/Vol] 8 U/L [facility] - Blood bankon ABO and Rh group Nom (Bld) Blood group O Rh(D) positive [facility] LeukoReduced RBCon LeukoReduced RBC NOT AVAILABLE Normal [facility] Leukocyte Reduced RBCon Leukocyte Reduced RBC ASSIGNED Normal [facility] Comment on above: Result Comment: PERF ORMED BY: [place] [address] PATHOLOGIST REEL FILM INSPECTOR ZENY CURRIE M.D. Leukocytes [#/volume] correc sánchez for nucleated erythrocytes in Blood by Automated counOrdered By: Leonides Walker on 04-08-2023 WBC corrected for nucl RBC Auto (Bld) [#/Vol] 10.7 10*3/uL 4.1-10.5 [facility] Leukocytes [#/volume] in Blo od by Automated countOrdered By: Leonides Walker on 04-08-2023 WBC (Bld) [#/Vol] 10.7 10*3/uL High 4.1-10.5 [facility] Comment on above: Performed By: #### P T, CBC, CK, CMP, PTT, ETOH, LIPASE #### [address] Lipase [Enzymatic activity/v olume] in Serum or PlasmaOrdered By: Leonides Walker on 04-08-2023 Lipase [Catalytic activity/Vol] 16.0 U/L Normal 11.0-82.0 [facility] Comment on above: Result Comment: PERF ORMED BY: [place] [address] PATHOLOGIST REEL FILM INSPECTOR ZENY CURRIE M.D. Performed By: #### P T, CBC, CK, CMP, PTT, ETOH, LIPASE #### [address] Lymphocytes [#/volume] in Bl ood by Automated countOrdered By: Leonides Walker on 04-08-2023 Lymphocytes (Bld) [#/Vol] 3.9 10*3/uL Normal 1.00-4.8 [facility] Comment on above: Performed By: #### P T, CBC, CK, CMP, PTT, ETOH, LIPASE #### [address] Lymphocytes/100 leukocytes i n Blood by Automated countOrdered By: Leonides Walker on 04-08-2023 Lymphocytes/100 WBC (Bld) 36.0 % Normal . [facility] Comment on above: Performed By: #### P T, CBC, CK, CMP, PTT, ETOH, LIPASE #### [address] MCH [Entitic mass] by Automa sánchez countOrdered By: Leonides Walker on 04-08-2023 MCH (RBC) [Entitic mass] 28.6 pg Normal 27.5-35.2 [facility] Comment on above: Performed By: #### P T, CBC, CK, CMP, PTT, ETOH, LIPASE #### [address] MCHC Auto (RBC) [Mass/Vol]Or dered By: Leonides Walker on 04-08-2023 MCHC (RBC) [Mass/Vol] 33.4 g/dL 32.5-35.6 [facility] MCV [Entitic volume] by Auto mated countOrdered By: Leonides Walker on 04-08-2023 MCV (RBC) [Entitic vol] 85.5 fL Normal 83.5-101 [facility] Comment on above: Performed By: #### P T, CBC, CK, CMP, PTT, ETOH, LIPASE #### [address] Monocyte distribution width [Entitic volume] in Blood by AutomatedOrdered By: Leonides Walker on 04-08-2023 Monocyte distribution width Auto (Bld) [Entitic vol] 16.89 % 0.00-20.00 [facility] Neutrophils [#/volume] in Bl ood by Automated countOrdered By: Leonides Walker on 04-08-2023 Neutrophils (Bld) [#/Vol] 5.8 10*3/uL Normal 1.8-7.7 [facility] Comment on above: Performed By: #### P T, CBC, CK, CMP, PTT, ETOH, LIPASE #### [facility] [address] No Panel Informationon 04-08 Radiology Study observation (narrative) [facility] Interpretation and review of laboratory results Normal [facility] Interpretation and review of laboratory results Normal [facility] Radiology Study observation (narrative) [facility] No Panel InformationOrdered By: Leonides Walker on 04-08-2023 Estimated GFR (CKD-EPI) > 60.0 mL/Min [facility] Creatinine Clearance (Chem 152.91 [facility] Nucleated erythrocytes [Pres ence] in Blood by Automated countOrdered By: Leonides Walker on 04-08-2023 Nucleated RBC Auto Ql (Bld) 0.1 /100{WBC} 0-0.5 [facility] Opiates [Presence] in Urine by Screen methodOrdered By: Leonides Walker on 04-08-2023 Opiates Screen Ql (U) Positive Negative [facility] PARTIAL THROMBOPLASTIN TIMEo n 04-08-2023 aPTT Coag (Bld) [Time] 26 s Normal 25-37 [facility] Comment on above: Performed By: #### C H8 #### [facility] [address] [place] [address], aPTT Coag (Bld) [Time] 26 s [facility] PROTHROMBIN TIME AND INRon 0 04-08-2023 INR Coag (PPP) [Relative time] 0.94 {INR} Normal 0.90-1.10 [facility] Comment on above: Performed By: #### C H8 #### [facility] [address] [place], [place], PT Coag (PPP) [Time] 10.5 s Normal 9.7-12.9 [facility] Comment on above: Performed By: #### C H8 #### [facility] [address] [place], [address] INR Coag (PPP) [Relative time] 0.94 {INR} 0.90 - 1.10 [facility] PT Coag (PPP) [Time] 10.5 s [facility] Partial Thromboplastin Timeo n 04-08-2023 aPTT Coag (Bld) [Time] 27.4 s Normal 25.1-36.5 Th e [facility] Comment on above: Result Comment: A he matocrit value greater than 55% may lead to inaccurate results in coagulation testing. Patients having hematocrit values >55% require a special collection tube for coagulation studies. Please contact the laboratory at [phone] for redraw instructions. PERFORMED BY: [place] [address] PATHOLOGIST REEL FILM INSPECTOR ZENY CURRIE M.D. Performed By: #### P T, CBC, CK, CMP, PTT, ETOH, LIPASE #### [address] Phencyclidine Screen Ql (U)O rdered By: Leonides Walker on 04-08-2023 Phencyclidine Ql (U) Negative Negative [facility] Platelet mean volume [Entiti c volume] in Blood by Automated countOrdered By: Leonides Walker on 04-08-2023 Platelet mean volume (Bld) [Entitic vol] 7.5 fL Normal 6.6-10.1 [facility] Comment on above: Performed By: #### P T, CBC, CK, CMP, PTT, ETOH, LIPASE #### [facility] [address] [place] [address] Platelets [#/volume] in Bloo d by Automated countOrdered By: Leonides Walker on 04-08-2023 Platelets (Bld) [#/Vol] 270 10*3/uL Normal 150-450 [facility] Comment on above: Performed By: #### P T, CBC, CK, CMP, PTT, ETOH, LIPASE #### [facility] [address] [place] [address] [place] Potassium [Moles/volume] in Serum or PlasmaOrdered By: Leonides Walker on 04-08-2023 Potassium [Moles/Vol] 3.9 mmol/L Normal 3.5-5.1 [facility] Comment on above: Performed By: #### P T, CBC, CK, CMP, PTT, ETOH, LIPASE #### [facility] [address] [place] [address] [facility] Progress Noteson 04-08-2023 Linen Manager Authentication Interface Message Text [facility] Department of Surgery Division of Trauma Surgery, Acute Care Surgery, Critical Care, and [place] TRAUMA SURGERY HISTORY AND PHYSICAL Eduarda Williamson [id number] ASSESSMENT: Eduarda Williamson is a 32 year old male , with no significant PMH, who presents as a transfer from [facility] after a fall from 30ft from utility pole. INJURIES: 1. Stable 2.3 x 2.2 cm [...] for injury Kathryn Lee MD Normal [facility] Linen Manager Authentication Interface Message Text CAT 2 Pt is a 32yo M presenting to ED via [employer] as transfer from [facility] s/p fall 30ft from ladder at work, L ulnar fracture, -thinners, -LOC. 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 Pt denies LOC. Pt was brought to [facility], where he was diagnosed with small R pneumothorax and L ulnar fracture. SW called pt's mother Lacho Williamson [phone] to provide update on pt status. Lacho is on the way to ED and will be visiting shortly. PLAN: Pending. PrudencRONALDO MclainW, ROLLER BEARING INSPECTOR, MA ED Print Support Specialist Normal [facility] Protein [Mass/volume] in Ser um or PlasmaOrdered By: Leonides Walker on 04-08-2023 Protein [Mass/Vol] 6.5 g/dL Normal 6.4-8.9 [facility] Comment on above: Performed By: #### P T, CBC, CK, CMP, PTT, ETOH, LIPASE #### [facility] [address] [place] [address] Prothrombin time (PT)Ordered By: Leonides Walker on 04-08-2023 PT Coag (PPP) [Time] 10.6 s Normal 9.0-12.9 [facility] Comment on above: A hematocrit value g reater than 55% may lead to inaccurate results in coagulation testing. Patients having hematocrit values >55% require a special collection tube for coagulation studies. Please contact the laboratory at [phone] for redraw instructions. Result Comment: A he matocrit value greater than 55% may lead to inaccurate results in coagulation testing. Patients having hematocrit values >55% require a special collection tube for coagulation studies. Please contact the laboratory at [phone] for redraw instructions. Performed By: #### P T, CBC, CK, CMP, PTT, ETOH, LIPASE #### [address] Serum globulin measurement b y calculation (mass/volume)Ordered By: Leonides Walker on 04-08-2023 Globulin (S) [Mass/Vol] 2.3 g/dL [facility] Comment on above: Performed By: #### P T, CBC, CK, CMP, PTT, ETOH, LIPASE #### [address] Serum or plasma albumin/glob ulin mass ratioOrdered By: Leonides Walker on 04-08-2023 Albumin/Globulin [Mass ratio] 1.8 {ratio} [facility] Comment on above: Performed By: #### P T, CBC, CK, CMP, PTT, ETOH, LIPASE #### [address] Serum or plasma anion gap de terminationOrdered By: Leonides Walker on 04-08-2023 Anion gap [Moles/Vol] 14.7 mmol/L Normal 6.0-15.0 [facility] Comment on above: Performed By: #### P T, CBC, CK, CMP, PTT, ETOH, LIPASE #### [address] Sodium [Moles/volume] in Ser um or PlasmaOrdered By: Leonides Walker on 04-08-2023 Sodium [Moles/Vol] 138 mmol/L Normal 136-145 [facility] Comment on above: Performed By: #### P T, CBC, CK, CMP, PTT, ETOH, LIPASE #### [address] TYPE AND SCREENon 04-08-2023 ABO and Rh group Nom (Bld) Blood group O Rh(D) positive Normal [facility] Comment on above: Performed By: #### C H8 #### [facility] [address] [place] [address], ABO and Rh group Nom (Bld) No Previous Results Normal [facility] Comment on above: Performed By: #### C H8 #### [facility] [address] [place], [place], ABSC INT Negative Normal [facility] Comment on above: Performed By: #### C H8 #### [facility] [address] [place], [place], ABO and Rh group Nom (Bld) Blood group O Rh(D) positive [facility] ABO and Rh group Nom (Bld) No Previous Results [facility] Blood group antibody screen Ql Negative [facility] Type and Screenon 04-08-2023 ABO and Rh group Nom (Bld) Blood group O Rh(D) positive Normal [facility] Comment on above: Result Comment: PERF ORMED BY: [place] [address] PATHOLOGIST REEL FILM INSPECTOR ZENY CURRIE M.D. Urea nitrogen [Mass/volume] in Serum or PlasmaOrdered By: Leonides Walker on 04-08-2023 Urea nitrogen [Mass/Vol] 13 mg/dL Normal 7-25 [facility] Comment on above: Performed By: #### P T, CBC, CK, CMP, PTT, ETOH, LIPASE #### [facility] [address] [place] [address] XR CHEST AP OR PA 1 VIEWon [...] cardiopulmonary abnormality identified. MACRO: None Normal [facility] XR Chest Single viewon 04-08 EXAMINATION: [...] No acute cardiopulmonary abnormality identified. MACRO: None [facility] XR ELBOW LEFT MINIMUM 3 VIEW Son [...] body. Left elbow MACRO: None Normal [facility] XR Elbow - left Viewson 02-0 EXAMINATION: XR ELBO W LEFT MINIMUM 3 [...] radiopaque foreign body. Left elbow MACRO: None [facility] XR WRIST LEFT MINIMUM 3 VIEW [...] body. Left wrist MACRO: None Normal [facility] XR Wrist - left 3 Viewson [...] radiopaque foreign body. Left wrist MACRO: None [facility] XR Wrist - left 3 ViewsOrder ed By: Michele Joseph on 04-08-2023 [facility] Work Phone: XR femur RT 2V*on 04-08-2023 XR femur RT 2V* [facility] Main [address] [address] XRay Report Signed Patient: Eduarda Williamson MR#: [id number] 860 : 1990 Acct:[id number] Age/Sex: 32 / M ADM Date: 04/08/23 Loc: ER Room: Type: [facility] ER Attending Dr: Copies to: Leonides Walker [...] Naga Orlando M.D.04/08/2023 3:35 PM Dictation Location: [place] [address] Transcribed By: [facility] 04/08/23 1535 Dictated By: Naga Orlando II, MD 04/08/23 1534 Signed By: 04/08/23 1535 Normal [facility] XR forearm LT 2V*on 04-08-19 XR forearm LT 2V* [facility] Main [address] [address] XRay Report Signed Patient: Eduarda Williamson MR#: [id number] 860 : 1990 Acct:[id number] Age/Sex: 32 / M ADM Date: 04/08/23 Loc: ER Room: Type: [facility] ER Attending Dr: Copies to: Leonides Walker [...] Naga Orlando M.D.04/08/2023 4:17 PM Dictation Location: [place] [address] Transcribed By: [facility] 04/08/23 1617 Dictated By: Naga Orlando II, MD 04/08/23 1615 Signed By: 04/08/23 1617 Normal [facility] XR hip RT min 2V(w/wo pelvis )*on 04-08-2023 XR hip RT min 2V(w/wo pelvis)* [facility] Main [place] [address] [place] [address] XRay Report Signed Patient: Eduarda Williamson MR#: [id number] 860 : 1990 Acct:[id number] Age/Sex: 32 / M ADM Date: 04/08/23 Loc: ER Room: Type: [facility] ER Attending Dr: Copies to: Leonides Walker [...] Naga Orlando M.D.04/08/2023 3:44 PM Dictation Location: [place] [address] Transcribed By: [facility] 04/08/23 1544 Dictated By: Naga Orlando II, MD 04/08/23 154 Signed By: 04/08/23 154 Normal [facility] Coding Summary.on 11-13-2020 Coding Summary. [id number] Gh0bWw +PGhlYWQ+XR1GNRCwU14reTJrl K8JI0wZSC3GYMJTMIZVWD5EDM1 arIF0GRmhT0XhalZr LadxwDNyYH17PRb3UUO6aHanBV isvO1saRLeT3w2QzIvFK53xE62 VPhzDWJzMhJ1GzExtyoprBFu R9mjEvOvrJCpZvn+PHRhYmxlIH ruVFQvOIiiPDGfNaXdzNgkPI6p Eu1jBKWxOWNkrLoafOUaQqVb r3lxLHZyEHwaLJ0fjKydP8HjoZ U1BSRhk2u1Xw12yBK+PHRkIHN0 wAunLPqrm136PmVta8otJPU3 nBEtZHslZVC1T22hi6U4NXJvBE LuCMT9xXW2sX4ttXzrnfvbC5Jw nAQxJsR2ULP3sHKurU2paVhc migaxJ9lCrv+C79LAR5LHCBQZP 5NWqw1F7UoYjstyQD+GE51ZPDh KB34iPLppUWyg9uzmPy5LaXr UVHvISV7lEuxWHrlc3JhBENlX6 0dvWJoq2R2QHXzbAyrcWCcDhWd xKX1zI5kGCvynsrai3mahrsu Wjgqm5hkmr08vI96D14xARpdQS EbUWK7PRBgYHVduCkeyh2tqH5v Ii8+XZgss9jll4uefMl3UmQp TCBwcmFjgLmmUKC0p9VxCj26Y3 UpvVoeu2AbEqc9qt51oGQah5M5 oFK5PKadNVTdgQ7vZLfzOqZ5 ZVHnPpAqgO74vEZrMYaqMi9ndS aeiCubWK0gVFDwfhmwZACwnB7c OINdlZBtwXtxBE2aKHTjiriw z570LdHaMLS8QDVmrAQuB3NwbD 3sGbViSTGgRECkT6FnhJTuVTwh V577GVtjXkZ1IBQdzkEcB5Ez QCBtdFjtZoM3z3O5Yr8Iq3Mbaj ksFVE8WIehZLY3KkU1HjCyTbT6 J2YpAub1YRSuoRajZU5fQ7Hc JZDghygekzpdeAH2ZFZgYUHszH 82mCVtJCsxDc9ya3B9s982HDSk JCSvwX44Ek9kkUffUFVgfFYA oE1ggkuyd6kkxkxsCuNtQAPkOI l4HQw1TMGgtQlxGoFgCQF7LaR0 WWR6cNYaaD1hvIrycwcwkB2b Oyc+F13uvF6gSHX8GJY9lhuqFB SsrsCjGE96ZR41I1HyCuuxbCHf bGU+JXXfobAmsXnbQT5vRvAy z9dpb0EaGLbgF5OeQUQjRJxeBy u2MFHvGAO7pZP9sP9vJPCzIMfo b2L5eVF4J7BkzsOtju8wz1mp EBUwOKaiS59zrKEjz9F6SZUwxW O9LJGhyYyoNcHhwW91Wwy+PGNv oRxse1UfDuvxt7nxv9khsNq1 YwUfUMBcbyMmaPnbINY6u0QvHg 86Y53nOJbmHCCkDILgSALzDOCx gYheuk1ufW5dDa7+PGNvbCB3 jDM4dA9mIWPlHsG7KPylB072Cy WfxTCaIjzfc2pkj4qeqSo7SvOr MYDuweJeiCldFVN7b5CuYp81 I59jHAgqFPOgDXReDXJwHVJxxM fnxx5lxJ0zEf4+EA6jz6prbo18 hT59aJO+KDVzLZE1nNflFXsi GYQkvL8rZKwiAxO5DHWrVsNpyJ 76fAIgKJjwLq5arQcafGedON9g NZGfxkgli945AeKum1seJEHg aFGsRNthOVP2B28ex5X1INAsYP HjAHK5aVV0aJ4dpAdroldxvJFi oSxfdvVusNocIVghWOpcK078 IHRvcDsnPlBhdGllbnQgTmFtZT n8U2OwZfs8QOLnyPhkAA6adMUv KJmrMx3qiLtgyAgxLJ5dNFZd lrbcg517QuSih2efFTRhiNEqHA kyDIJ4C58vf5Y4WLQzRCWbYMA9 jBG9iN0laBqudhphbGLpmAnz odUznJhpNGjsZFjsT867XWRlzN ipYiTxhoWyUJQdiGB5LZ28KG55 oVCyc1S9jXL4W5YxBEWqfvel lfmeyWS8URZvJBRgjY77Au3qtU tlHc0kUTEcQPO6RSGkdKGlV5Ya qY3bMyOnLWSyEBGgM8IxbYXf NAjiJ957MZsjJmI2BHCjypSyV5 YlEWHzdXweOzY5j9X6Sc0NE5S5 DD10TG79qQZtr6M2jHC1B1Iw GYBimuqgxeanrNM4JDWkKBKgcT 78Qw0ftRjuXs9lOGBbMTW1KWNy tLKeT7PjsK1mBiHhNOHbGFKo S2XmuZJhZByuD175CKisEwE2WB VqpbAhK2AwIWKgnYxwUiL8k8U4 Zx6NQVw4WL18VN58xDGiv2J7 iXY4C1YeJINyvskpeivltQG6FL CpWKJhsP27Wc0mhUvoLg0iGYXq KPI3QKBvbLBwD2UygL8qNqPh EFJgMYMaA4CbtKKxZIokQ751OI faEkD3YJSfmcMtI3WsRQFnoSdd ZrX8r2L2Rf9BMKGtGZ18WOB9 pWV7BY63IS68U5DlWgtqiVQljP U+PHRhYmxlIHdpZHRoPScxMDAl FwWznDncVC1dFz0rVIRfXKAd sTgjwYHaYfZlj3ndGQCbRAglBF 1rvHlvI1FdnEL7BGItx8u0Qz52 Z75yI0TloQK+XQSieOZ7dEJ1 tL8fPpTtRvR6GExfJ689BjXtpZ RbBirmg2fzx4jfmIj8BsY6OKAy kdDvyTtmSYA1d2UuPa03E36j IHdpZHRoPSIxNSUiIHZhbGlnbj 8emT7tRu9+ZUAqnJT8tTT8nO4c XvUiQfI9PNunV462NaKosVYw Nbzic4evw6mawMt8FzAcUBUmed LvlUazAJF1x7GtDy76I8FktLar y0HxAyu2bb74vZOhv4W7fYY1 S5QaEKZlkjdbhHJoyXdsKK9oSL VejaryJCLouD4nPDThH2t4JoUu UdP1REdkJ2FtfcV9NTJwxXTq ESdjSPY1X18yu3K0GNHnAJIsHL B5gBM7cP9tlQxcsbinmVClsZwz eqSirMvtIOvbJYpuQ284KLEo jFfvBYDbhQ4dLZYfyHNnnWdvWV 0gGHXdlfthFyyVXEyRR4pcKCuD WJKBCTi0Y9BcRwe5IKYoqHif VJ5taMTyUVmuEg1qjUzglVfgYN 9rKELnlrdsKKEcnO6jXZYjlHJg dZgeBA4sJSWklmdxx601FtKo UQT3BLDuwTUsX4NgqE1dRhYdIY UwRZFxE3EscIKaRNqyS153EUya XyM2XBHbpgYxK6LiRGVdvPhi SzT1l6U2Vw6vBS1pHB9lGIqcZV 22EF85pLTkj9W7pBL3Q8UbUSQn tmnpfkehuKJ4NAHcBCEnyP22 fTAdUZpfEx7er5B3t435SOQvSK ZkpP43Qv2eeEnfCSVcjTEJoY7w elevh6jxzpopJdPkOVRzTPb8 YFb6ZAXmrIyzHaFiJZF8MyG1XH J3bQUmnE7glNuenedqpC2cGag+ LdgbERSuszF4U8JpDew8ULVk kOzmEG9jbCCbLIodPg0nkAartL yoMV3lCNQkfncnKWRcxK3xWEUp jJWyzUovSD2sEBGrcpsdm513 ZuXwNEJ6LVWhqDVkN9SqaB1cSk HcEVIrZLBgB9LupONxORfjN090 BWcaXsI2LMHqgbVeA2QrUXWs fUwkUuI2y5W6Zv7FXPxaHG60HZ 64pEGty6W2kEL1W9AeHLNbecrg vvnksBM4HIIdVHVgmM93xMNo JNmoLz0nc3Q4v017UGXbSFWpkW 50Ce7pcBcmURUrpSHLsG6bkntd j2rrqwjpLxAoDJDlTLf3WMd0 FUXitRmnDiVdCNU2JmK1ZKE0iV HpsK2wyRlchtmgiA2wIyh+RW1l ckbktiV9RA83FU54W3DnNfll dGFibGU+PHRhYmxlIHdpZHRoPS szTNQkGrSjfLrpZQ8wAb0qDWDt HUOamEljvTTkPqZqy8ywLEBm AXshAN5fkZlsW1LxmBH3OJJlp0 u6Sn12V21mG6CepIC+PGNvbCB3 tAT4jA0dXmUtTeN7WIthR671 PdXweBRsOlwsr9soa2wboBi2Vn EmPFYeirJggTkhYXF3x6YkEj52 K52qVDkvMPOhTPKzIPSxXXJk gUqjbz9xlG8oDi3+FMJzzTR6jQ D0mZ9iAsDeEpP0WDchZ348NcCy tRRrKzozH24jF2UdlEL+PHRy Apo8EQHpvLmkZQ0hjNAxDPmjCd 1oBTT4PlNnRrNbDFdwO1UoJRVe wncpfguexYL6IZKbLZFtuQ54 Ow4alIjiLg7dZTCiPTL5QYQlzM TbU7ClnO6vMiBnPRGoIJYkL8Pe sFKdEEiwK824DVjyQnT3XWKg smSgN1RjZSBwbYjyBiV6x2J0Zy 1DxNmkrCXnNJ6aAhExEXh7W1Fb Odn1TGLjkYvsPW4dxPTiSPnx He5wrLnjiBsdDS5oZCOazdlog2 75IqMyd2rbAWQbqFVcVWopXOA0 S71ai7K3DJXoFKNsWBR7sGZ8 wW6svMdtmyxerHNslCwbyhAojG qmDUneVKhbA668BJHhvJtwTbZZ Uhp0D4KwSpv6LDSsrIhkXV2t fZWgSIalDy2jyTpeqPjgWK9nCN Mtjakeu940BxXzg3scFKNkgARe XUcqJUQ4F66vp1M2TGFnDFNz IHY9pIQ5lT0fvYvfttqqmDCwxU negrRdhQwoADxzMXofM490JXRr dVlsNr8ZYtu2J1BxEsn0MSIx zMrvRP5obGIlIBcrRj2xuKaifN nvLJ0yQKZvyryfa187XpXmq0ti FLPdhSHxVIvjQDP2W57xd7N4 DLXzTYSuMKX1pHD7xR8dsKjllp ogbGVmdDsgdmVydGljYWwtYWxp S578NSGjxBxwFmVgqHFaVvdn dGQ+WB50aw19G6OiWfjfFfo9EE NhZII2fPZ0pY5dUMHfNJjnu5U1 rNK3W5LvjtMoxo0sz1nhJUNx [employer] (more content not included)... Normal [facility] Discharge Instructionson Discharge Instructions [id number]:[id number] Normal [facility] ED Note-Physicianon 11-10-19 ED Note-Physician Basic [...] Chronic sinusitis, unspecified) Orders: Rapid COVID Antigen ([facility] [place] [place] Disposition Plan Patient Discharge Condition Disposition: Discharged home Condition: Improved and stable Counseled: Patient and/or family were counseled to workup, results, treatment plan and follow-up recommendations Discharge Prescription List Prescriptions No active prescription medications Follow-up With When Contact Information Tito Whitney In 3 days 11/11/2020 EDT [address] [place] [phone] Business (1) Additional Instructions: Patient Education COVID-19 Attestation Patient seen and evaluated by the physician recreation assistant. Attending physician was present in the emergency department and supervised care. This report was transcribed using voice recognition software. Every effort was made to ensure accuracy, however, inadvertently computerized mental tester mistakes may be present. Appropriate healthcare PPE [...] Diagnostic Results No qualifying data available. [facility] Comment on above: Result Comment: Elec tronically Signed By: Rinku Ruiz PA-C\.br\Date and Time Signed: 11/08/20 19:11 EDT\.br\Electronically Co-Signed By: Virgilio Song DO\.br\Date and Time Co-Signed: 11/08/20 22:00 EDT Consent for Treatmenton 10-30 Consent for Treatment [id number]:127 Normal [facility] ED Clinical Summaryon 2020 ED Clinical Summary (Inserted Image. Natalee ble to display) [place] [id number] ED Clinical Summary Person Information Name: EDUARDA WILLIAMSON [facility]ali/[facility] Age: 29 Years : 1990 Sex: Male Language: [place] PCP: Tito Whitney MD Marital Status: Phone: [phone] Visit Id: Visit Reason: Cough; Sinus Pain/Congestion; [...] 11/08/2020 19:16:14 11/08/2020 19:16:14 11/08/2020 19:16:14 ADDRESS: [address] [place] [phone] PHYS DOC NOTES: MEDICAL INFORMATION: Prescriptions Given: PATIENT EDUCATION INFORMATION: Instructions: COVID-19 Follow up: With: Address: When: Tito Whitney [address] [place] [address], [address] [place] [phone] Business (1) In 3 days 11/11/2020 DIAGNOSIS: Sinusitis Normal [facility] ED Patient Summaryon 021 ED Patient Summary (Inserted Image. Natalee ble to display) [address] [address] Patient Discharge Instructions Person Information Name: EDUARDA WILLIAMSON Age: 29 Years Arrival Date: 11/08/2020 18:37:36 Discharge Diagnosis: Sinusitis Primary Care Physician: Tito Whitney MD Provider Information Primary Provider: Virgilio Song DO [employer] Maker Helper:Rinku Ruiz PA-C The exam and treatment you received in the Emergency Department were for an urgent problem and are not intended as complete care. It is important that you follow up with a doctor, nurse practitioner, or physician?s recreation assistant for ongoing care. If your symptoms [...] Follow-up Instructions: With: Address: When: Tito Whitney [facility], [address] [place] [phone] Business (1) In 3 days 11/11/2020 In the event that this physician does not participate in your insurance network, please consult with your insurance company to find a nearby participating provider. Patient Education Materials: COVID-19 A MESSAGE TO ALL PATIENTS REGARDING OPIOIDS PRESCRIPTION OPIOIDS: WHAT YOU NEED TO KNOW Prescription opioids can be used to help relieve xwiydnzd-jy-jrzhnd pain and are often prescribed following a [...] be struggling with addiction, tell your health cna caregiver and ask for guidance or call SAMHSA?S National Helpline at 8-496-491-HELP. v Source: [place] Department of Health (more content not included)... [facility] Rapid COVID Antigen (MC)on 11-08-2020 Rapid COV Int NEG Ctl Pass Normal [facility] Comment on above: Performed By: #### 2 [id number] #### [facility] [address] [place] [address] Rapid COV Int POS Ctl Pass Normal [facility] Comment on above: Performed By: #### 2 [id number] #### [facility] [address] [place] [address] SARS-CoV-2 (COVID-19) RNA SYDNEY+probe Ql (Unsp spec) Detected Abnormal Not Detected [facility] Comment on above: Result Comment: Resu lts Called To Chandana Gonzales/Rk By ALL And Read Back For Confirmation On 11/08/2020 19:31:35 EDT Faxed to LUCIANO and EVI 11/08/2020 19:31:40 EDT. The [employer] Veritor? System for Rapid Detection of SARS-CoV-2 [...] or revoked sooner. 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 Unknown Normal [facility] Comment on above: Performed By: #### 2 [id number] #### [facility] [address] [place] [address] ICU NO [facility] Comment on above: Performed By: #### 2 [id number] #### [facility] [address] [place] [address] ? NO [facility] Comment on above: Performed By: #### 2 [id number] #### [facility] [address] [place] [address] Resides in a Congregate Care Setting NO [facility] Comment on above: Performed By: #### 2 [id number] #### [facility] [address] [place] [address] Symptomatic as defined by [facility] YES Normal [facility] Comment on above: Performed By: #### 2 [id number] #### [facility] [address] [place] [address] Vital Signs Date Time Vital Sign Value Performing Clinician Facility 04-14-2023 16:36-0500 Diastolic blood pressure 76 mm[Hg] Carmela Guevara MD Work Phone: [facility] 04-14-2023 16:36-0500 Heart rate 90 /min Carmela Guevara MD Work Phone: [facility] 04-14-2023 16:36-0500 Respiratory rate 16 /min Carmela Guevara MD Work Phone: [facility] 04-14-2023 16:36-0500 SaO2% (BldA) [Mass fraction] 100 % Carmela Guevara MD Work Phone: [facility] 04-14-2023 16:36-0500 Systolic blood pressure 129 mm[Hg] Carmela Guevara MD Work Phone: [facility] 04-14-2023 16:15-0500 Body temperature 97.7 [degF] Carmela Guevara MD Work Phone: [facility] 04-14-2023 12:06-0500 Body height 188 cm aCrmela Guevara MD Work Phone: [facility] 04-14-2023 12:06-0500 Body mass index (BMI) [Ratio] 29.4 kg/m2 Carmela Guevara MD Work Phone: [facility] 04-14-2023 12:06-0500 Body weight 103.87 kg Carmela Guevara MD Work Phone: [facility] 04-11-2023 05:09-0500 Body temperature 97.7 [degF] Jarrod Chandler MD Work Phone: [facility] 04-11-2023 05:09-0500 Diastolic blood pressure 76 mm[Hg] Jarrod Chandler MD Work Phone: [facility] 04-11-2023 05:09-0500 Heart rate 76 /min Jarrod Chandler MD Work Phone: [facility] 04-11-2023 05:09-0500 Respiratory rate 15 /min Jarrod Chandler MD Work Phone: [facility] 04-11-2023 05:09-0500 SaO2% (BldA) [Mass fraction] 95 % Jarrod Chandler MD Work Phone: [facility] 04-11-2023 05:09-0500 Systolic blood pressure 136 mm[Hg] Jarrod Chandler MD Work Phone: [facility] 04-10-2023 23:08-0500 Heart rate 101 /min Jarrod Chandler MD Work Phone: [facility] 04-10-2023 10:00-0500 Body height 188 cm Jarrod Chandler MD Work Phone: [facility] 04-10-2023 10:00-0500 Body mass index (BMI) [Ratio] 29.44 kg/m2 Jarrod Chandler MD Work Phone: [facility] 04-10-2023 10:00-0500 Body weight 104.02 kg Jarrod Chandler MD Work Phone: [facility] 04-08-2023 16:00-0500 Diastolic blood pressure 94 mm[Hg] DO Leonides Keister Work Phone: [facility] 04-08-2023 16:00-0500 Heart rate 91 /min DO Leonides Keister Work Phone: [facility] 04-08-2023 16:00-0500 Respiratory rate 18 /min DO Leonides Keister Work Phone: [facility] 04-08-2023 16:00-0500 SaO2% (BldA) [Mass fraction] 99 % DO Leonides Keister Work Phone: [facility] 04-08-2023 16:00-0500 Systolic blood pressure 150 mm[Hg] DO Leonides Keister Work Phone: [facility] 04-08-2023 15:34-0500 Body temperature 97.8 [degF] DO Leonides Keister Work Phone: [facility] 04-08-2023 14:26-0500 Body height 187.96 cm DO Leonides Keister Work Phone: [facility] 04-08-2023 14:26-0500 Body weight 104.4 kg DO Leonides Keister Work Phone: [facility] Encounters Encounter Date Encounter Type Care Provider Facility Start: 11-16-2023 End: 11-16-2023 ambulatory MD Tito Whitney Work Phone: [facility] Work Phone: Start: 11-16-2023 End: 11-16-2023 Patient encounter procedure MD Tito Whitney Work Phone: [facility] [address] Work Phone: Start: 10-21-2023 End: 10-21-2023 ambulatory FRANCES ISBELL Not Available Start: 09-06-2023 End: 09-06-2023 ambulatory Alin Khanna MD Facility:[facility] Start: 06-14-2023 End: 06-14-2023 ambulatory CARMELA GUEVARA Facility:[facility] Start: 06-14-2023 End: 06-15-2023 ambulatory UNKNOWN PROVIDER [facility] Start: 06-14-2023 End: 06-14-2023 Subsequent hospital visit by physician Op Xray 1 [facility] Radiology Comment on above: Aftercare following surgery; Closed displaced comminuted fracture of shaft of left radius, initial encounter Start: 06-14-2023 End: 06-14-2023 Patient encounter procedure Carmela Guevara MD Work Phone: [facility] Comment on above: Closed displaced com minuted fracture of shaft of left radius, initial encounter (Primary Dx) Start: 04-29-2023 End: 04-29-2023 ambulatory UNKNOWN PROVIDER Facility:[facility] Start: 04-27-2023 ambulatory LAURA Cintron ity:[facility] Start: 04-27-2023 End: 04-28-2023 ambulatory CARMELA GUEVARA Facility:[facility] Start: 04-14-2023 End: 04-15-2023 ambulatory CARMELA GUEVARA Facility:[facility] Start: 04-14-2023 End: 04-14-2023 ambulatory CARMELA GUEVARA Facility:[facility] Start: 04-14-2023 Letter encounter Carmela Guevara MD Work Phone: [facility] Start: 04-14-2023 End: 04-14-2023 ambulatory CARMELA GUEVARA Facility:[facility] Start: 04-14-2023 End: 04-14-2023 Subsequent hospital visit by physician Carmela Guevara MD Work Phone: [facility] Ambulatory Surgery Comment on above: Post-op pain (Primar y Dx) Start: 04-10-2023 Evaluation and manag ement of inpatient YING HOLT Facility:[facility] Start: 04-09-2023 Admission to same y surgery center Carmela Guevara MD Work Phone: [facility] Start: 04-08-2023 End: 04-11-2023 Evaluation and management of inpatient Jarrod Chandler MD Work Phone: [facility] [address] Comment on above: Mesenteric hematoma, initial encounter (Primary Dx); Fall from height of greater than 3 feet; Closed fracture of shaft of left radius, unspecified fracture morphology, initial encounter; Tachycardia, unspecified; Abnormal electrocardiogram (ECG) (EKG); Abnormal electrocardiogram (ECG) (EKG) Start: 04-08-2023 End: 04-08-2023 E.D. Visit Prudence Pat [facility] Social Work Comment on above: Trauma/complex Medic al Situation Start: 04-08-2023 End: 04-08-2023 Emergency department patient visit DO Leonides Walker Work Phone: [facility] Work Phone: Start: 03-02-2023 End: [...] Work Phone: Start: 04-11-2023 Assay of magnesium [place] johnny Pineda MD Work Phone: Start: 04-10-2023 Assay of magnesium [place] johnny Pineda MD Work Phone: Start: 04-10-2023 [...] Kathryn Lee MD Work Phone: Start: 04-08-2023 CT of thoracic and l [...] Jarrod Chandler MD Work Phone: Start: 04-08-2023 Antibody screen Buster Guillaume Jr Comment on above: Result Comment: PERF ORMED BY: [facility] [address] [place] [address] PATHOLOGIST REEL FILM INSPECTOR ZENY CURRIE M.D. Start: 04-08-2023 Computed tomography of abdomen and [...] 2) Shingles (RZV) Vaccine (1 of 2) [facility] Start: 04-08-2033 Tetanus vaccination Tetanus (T d or Tdap) Booster [facility] Start: 06-14-2023 End: 06-13-2024 XR Radius and Ulna - left Views XR FOREARM LEFT 2 VIEWS Imaging Routine Closed displaced comminuted fracture of shaft of left radius, initial encounter Expected: 06/14/2023, Expires: 06/13/2024 [facility] Work Phone: Comment on above: Expected: 06/14/2023 , Expires: 06/13/2024 Start: 04-27-2023 End: 04-27-2023 Patient encounter procedure 04/27/2023 2:00 PM EST Office Visit [facility] [address] [address] Carmela Guevara MD [address] [place] [address] [place] [address] [facility] Start: 04-15-2023 End: 04-15-2023 Admission to same day surgery center 04/15/2023 12:02 PM EST - 04/15/2023 3:03 PM EST Surgery [facility] OR [address] [place] [address] Carmela Guevara MD [address] [place] [address] [place] [address] REDUCTION, OPEN, RADIUS [facility] OR Comment on above: REDUCTION, OPEN, RAD IUS Start: 04-15-2023 End: 04-15-2023 Evaluation and management of inpatient 04/15/2023 12:02 PM EST - 04/15/2023 3:03 PM EST Surgery [facility] OR [address] [facility] [place] [address] Carmela Guevara MD [address] [place] [address] [place] [address] REDUCTION, OPEN, RADIUS [facility] OR Comment on above: REDUCTION, OPEN, RAD IUS Start: 04-15-2023 End: 04-15-2023 REDUCTION, OPEN, RADIUS REDUCTION, OPEN, RADIUS Routine scheduled Closed displaced comminuted fracture of shaft of left radius, initial encounter 04/15/2023 12:02 PM EST [facility] Start: 04-14-2023 End: 04-14-2023 REDUCTION, OPEN, RADIUS REDUCTION, OPEN, RADIUS Routine scheduled Closed displaced comminuted fracture of shaft of left radius, initial encounter 04/14/2023 1:02 PM EST [facility] Start: 04-08-2023 [facility] Start: 10-30-2022 Influenza vaccination Influenza Vacc ine (#1) [facility] Start: 12-17-2019 HPV Vaccine (optiona l start 27-45 years) HPV Vaccine (optional start 27-45 years) [facility] Start: 12-17-2011 Hepatitis A (HAV) Vaccine (optional start 19+ years) Hepatitis A (HAV) Vaccine (optional start 19+ years) [facility] Start: 2010 Hepatitis C screening Hepatitis C An tibody [facility] Start: 2010 Tetanus + diphtheria + acellular pertussis vaccine (product) Tdap Booster [facility] Start: 06-16-1993 COVID-19 Vaccine (#1) COVID-19 Vacci ne (#1) [facility] Start: 1992 Hepatitis B vaccination Hepati tis B (HBV) Vaccine (1 of 3 - 3-dose series) [facility] Assay of magnesium MAGNESIUM Lab STAT Daily until discontinued starting 04/10/2023, 2 completed [facility] Work Phone: Comment on above: Daily until disconti nued starting 04/10/2023, 2 completed Assay of phosphorus inorganic PHOSPHORUS Lab STAT Daily until discontinued starting 04/10/2023, 2 completed [facility] Comment on above: Daily until disconti nued starting 04/10/2023, 2 completed CBC panel - Blood by Automated count COMPLETE BLOOD COUNT Lab STAT Daily until discontinued starting 04/09/2023, 3 completed [facility] [employer] Work Phone: Comment on above: Daily until disconti nued starting 04/09/2023, 3 completed Patient referral [facility] Work Phone: Immunizations Immunization Date Immunization Notes Care Provider Fa cility 04-08-2023 tetanus toxoid, redu tali diphtheria toxoid, and acellular pertussis vaccine, adsorbed DO Leonides Walker Work Phone: [facility] Payers Date Payer Category Payer Unknown COMMERCIAL INSUR ANCE - OTHER COMMERCIAL INSURANCE OTHER [id number] 2023-Present [address] [place] [address] Indemnity [id number] 2023 Unknown [id number] 2023 Unknown [id number] 2023 Worker's Compensation [id number] 2023 Self-pay [id number] 2023 Unknown [id number] 2023 Unknown [id number] 1992 Unknown [id number] [id number] .732 1992 Unknown [id number] 2.16.840.1.728367.3.579.2 .732 1992 Unknown [id number] 2.16.840.1.011386.3.579.2 .732 1992 Unknown [id number] 2.16.840.1.067681.3.579.2 .732 1992 Unknown [id number] 2.16.840.1.726166.3.579.2 .732 1992 Unknown [id number] 2.840.1.086508.3.579.2 .732 1992 Unknown [id number] 2.16.840.1.748129.3.579.2 .732 1992 Unknown [id number] 2.16.840.1.435291.3.579.2 .732 1992 Unknown [id number] 2.16.840.1.679652.3.579.2 .732 1992 Unknown [id number] 2.840.1.104498.3.579.2 .732 1992 Unknown [id number] 2.16.840.1.112319.3.579.2 .732 1992 Unknown [id number] 2.16.840.1.848882.3.579.2 .732 1992 Unknown [id number] 2.16.840.1.987354.3.579.2 .196 1992 Unknown [id number] 2.16.840.1.999559.3.579.2 .1259 1992 Unknown [id number] 2.16.840.1.271066.3.579.2 .1259 1992 Unknown [id number] 2.16.840.1.777414.3.579.2 .1259 Unknown [id number] 2.16.840.1.264262.3.579.2 .531 Unknown [id number] 2.16.840.1.413313.3.579.2 .531 Social History Date Type Detail Facility Tobacco smoking status [facility] Unknown if ever smoked [facility] Work Phone: Start: 1990 Sex Assigned At Male F [facility] Tobacco smoking status [facility] Tobacco smoking consumption unknown [facility] Start: 1990 Sex Assigned At Not on file [facility] Gender identity Not on file [facility] Medical Equipment Procedure Code Equipment Code Equipment Origin al Text Equipment Identifier Dates 3.5 X 16 Screw E [id number] - [id number] Start: 04-14-2023 Plate 9 Hole For earm [id number] - [id number] Start: 04-14-2023 Clinical Notes 11-08-2020 to [...] Extremity Surgeon 06/14/23 documented in this encounter [facility] 04-27-2023 Note OCCUPATIONAL THERAPY HAND CLINIC EVALUATION [facility] case: authorization pending Visit #: 1 [...] for updated medication list. 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 Identification was verified by patient [...] continuing therapy closer to his home in [place], [place]. Pt would benefit from skilled OT to address problem list below. Prognosis for therapy: Good Problems include: Decreased Range of Motion, Decreased Strength, Edema, Pain, Unable to perform Full Work Tasks, Open Wound, and Lack of home program, healing structures. 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 OT f/u next week at [facility]. Interventions: AROM, AAROM, Tendon gliding exercises, Edema Control, Wound Care, Splinting, and Home program Plan of care discussed with patient and agreed upon. Risks and benefits of Occupational Therapy discussed with patient. Start Time: 15:52 Stop Time: 16:32 Total Treatment Minutes: 40 minutes Timed Code Treatments by Procedure: OT Therapeutic Procedures THERAPEUTIC EXERCISES (15 MIN) [77087 (more content not included)... [facility] 04-14-2023 Note Peripheral Block Patient location [...] fractionated injection: yes No block complications [facility] 04-14-2023 Note Surgical Attestation : I have reviewed the patient's History and Physical Examination. I have personally seen and evaluated the patient, repeating ortez portions. There is no significant interval change. This injury occurred at work and is a [facility] claim. Surgery is still indicated. Yes Consent reviewed and signed by patient/family: Yes Operative site verified and marked: Yes Carmela Guevara MD 04/14/2023 11:51 AM [facility] 04-14-2023 Surgery Postoperative evaluation and management note Brief Operative Note BV OR 3 Eduarda Williamson 32 year old male Surgical Contact Serial Number: [id number] Preoperative Diagnosis: Pre-op Diagnosis * Closed displaced comminuted fracture of shaft of left radius, initial encounter [S52.352A] Postoperative Diagnosis: * Closed displaced comminuted fracture of shaft of left radius, initial encounter [S52.352A] Procedures: LEFT radial shaft open reduction internal fixation Surgeon(s): Surgeon(s): Carmela Guevara MD Staff: Scrub: Nathaly Gonzalez RN Chip Mucker Nurse: Lesvia Knight RN; Sandy Yuen RN; Bang Rao RN Physician Battery Container Tester Aluminum: Jillian Read PA-C Mine Production Engineer: Boy Weir MD Anesthesia: LMA; local Anesthesiologist: Laura Solano MD CHAR BELT OPERATOR: Coreen Morris APRN-CRNA Data Capture Specialist: Keyshawn Lopez MD Specimen(s): * No specimens [...] by Jillian Read PA-C 04/14/2023 3:32 PM [facility] 04-14-2023 Surgery Surgical operation note Eduarda Williamson [id number] 04/14/2023 Date of Surgery: 04/14/2023 PREOPERATIVE DIAGNOSIS: leftforearm radial shaft fracture POSTOPERATIVE DIAGNOSIS: Same. PROCEDURE:LEFT FOREARM open treatment radial shaft fracture with internal fixation Use and interpretation of operating fluoroscopy: Yes ATTENDING SURGEON: Carmela Guevara M.D. STAFF: Scrub: Nathaly Gonzalez RN Chip Mucker Nurse: Lesvia Knight RN; Sandy Yuen RN; Bang Rao RN Physician Battery Container Tester Aluminum: Jillian Read PA-C Mine Production Engineer: Boy Weir MD ANESTHESIA: Consult IV FLUIDS AND URINE: See anesthesia. ESTIMATED BLOOD LOSS: 1 mL. DRAINS: None. SPECIMENS: None. COMPLICATIONS: None. IMPLANTS: Implant Name Type Inv. Item Serial No. Semiconductor Development Technician Lot No. LRB No. Used Action PLATE 9 HOLE FOREARM [id number] - [id number] PLATE 9 HOLE FOREARM [id number] [place] Left 1 Implanted 3.5 X 16 SCREW [id number] - [id number] Screw 3.5 X 16 SCREW [id number] [id number] [place] Left 6 Implanted INDICATIONS: Patient suffered a [...] portions of the case. Carmela Guevara MD [facility] 04-14-2023 Miscellaneous Notes Brief Operative Note BV OR 3 Eduarda Williamson 32 year old male Surgical Contact Serial Number: [id number] Preoperative Diagnosis: Pre-op Diagnosis * Closed displaced comminuted fracture of shaft of left radius, initial encounter [P02.686A] Postoperative Diagnosis: * Closed displaced comminuted fracture of shaft of left radius, initial encounter [S52.455A] Procedures: LEFT radial shaft open reduction internal fixation Surgeon(s): Surgeon(s): Carmela Guevara MD Staff: Scrub: Nathaly Gonzalez RN Chip Mucker Nurse: Lesvia Knight RN; Sandy Yuen RN; Bang Rao RN Physician Battery Container Tester Aluminum: Jillian Read PA-C Mine Production Engineer: Boy Weir MD Anesthesia: LMA; local Anesthesiologist: Laura Solano MD CHAR BELT OPERATOR: Coreen Morris APRN-CRNA Data Capture Specialist: Keyshawn Lopez MD Specimen(s): * No specimens [...] Read PA-C 04/14/2023 3:32 PM Eduarda Williamson [id number] 04/14/2023 Date of Surgery: 04/14/2023 PREOPERATIVE DIAGNOSIS: leftforearm radial shaft fracture POSTOPERATIVE DIAGNOSIS: Same. PROCEDURE:LEFT FOREARM open treatment radial shaft fracture with internal fixation Use and interpretation of operating fluoroscopy: Yes ATTENDING SURGEON: Carmela Guevara M.D. STAFF: Scrub: Nathaly Gonzalez RN Chip Mucker Nurse: Lesvia Knight RN; Sandy Yuen RN; Bang Rao RN Physician Battery Container Tester Aluminum: Jillian Read PA-C Mine Production Engineer: Boy Weir MD ANESTHESIA: Consult IV FLUIDS AND URINE: See anesthesia. ESTIMATED BLOOD LOSS: 1 mL. DRAINS: None. SPECIMENS: None. COMPLICATIONS: None. IMPLANTS: Implant Name Type Inv. Item Serial No. Semiconductor Development Technician Lot No. LRB No. Used Action PLATE 9 HOLE FOREARM [id number] - [id number] PLATE 9 HOLE FOREARM [id number] [place] Left 1 Implanted 3.5 X 16 SCREW [id number] [id number] - [id number] Screw 3.5 X 16 SCREW EA1 [id number] [place] Left 6 Implanted INDICATIONS: Patient suffered a [...] and/or blood components. documented in this encounter [facility] 04-14-2023 Progress note Formatting of t [...] for transfusion of blood and/or blood components. [facility] Work Phone: 04-14-2023 Hospital Discharge instructions [...] otherwise directed by your surgeon or physician recreation assistant, you may take over the counter anti-inflammatory (NSAID) medication (Ibuprofen, naproxen, etc.) as directed on the label. If you have a medical contraindication to taking NSAIDS, please consult your primary care doctor for advice. Please be sure you understand the plan for your post-operative pain management and are aware of where to picker box operator your prescriptions if not provided before discharge. [...] on weekends or holidays, please call the [facility] Nurse Line at [phone]. Appointments Your follow-up appointment is scheduled on Future Appointments Date Time Provider Department Center 04/27/2023 2:00 PM Carmela Guevara MD [facility] If you do not already have an appointment scheduled within two weeks of your surgery, please contact the surgeon s office. Do not hesitate to call your surgeon s office with any questions or concerns. After business hours please call the [facility] Nurse Line at and ask for the orthopaedic resident breast surgeon. For emergencies call [phone] [facility] Upper Extremity and Hand Surgery MD Jillian Galvan PA-C Orthopaedic Surgery Nurse Line Orthopaedic Surgery Appointments [phone] For questions related to paperwork, please call Orthopaedic Surgery [phone] PERIOPERATIVE DISCHARGE/HOME-GOING INSTRUCTIONS ANESTHESIA - GENERAL (ADULT) If a problem arises, you may contact your physician by calling [phone] and asking for the resident breast surgeon for hand surgery service. Special Care Needs: [...] very uncomfortable and can t urinate, call [phone] or come to the emergency room. The [...] area that persists beyond 36 hours, contact [phone], and ask for the anesthesiologist breast surgeon. For additional health information, call: [facility] at [phone]; 24 hours a day. You were given IV Toradol (which is an NSAID) today for your procedure. You next dose of Motrin is due TONIGHT at 9PM 04/14/2023 documented in this encounter [facility] 04-14-2023 History and physical note Surgical Attestation: I have reviewed the patient's History and Physical Examination. I have personally seen and evaluated the patient, repeating ortez portions. There is no significant interval change. This injury occurred at work and is a [facility] claim. Surgery is still indicated. Yes Consent reviewed and signed by patient/family: Yes Operative site verified and marked: Yes Carmela Guevara MD 04/14/2023 11:51 AM [facility] Work Phone: 04-14-2023 History and physical note Surgical Attestation: I have reviewed the patient's History and Physical Examination. I have personally seen and evaluated the patient, repeating ortez portions. There is no significant interval change. This injury occurred at work and is a [facility] claim. Surgery is still indicated. Yes Consent reviewed and signed by patient/family: Yes Operative site verified and marked: Yes Carmela Guevara MD 04/14/2023 11:51 AM documented in this encounter [facility] 04-11-[address] [facility] DIVISION OF TRAUMA SURGERY DISCHARGE SUMMARY [place] [id number] Eduarda Williamson Date of : 1990 32 [...] in by EMS as a transfer from [facility] following a fall from height. 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 -LOC -headstrike -AC/AP. [facility] imaging demonstrated a small R PTX, SMA artery dissection with active hemorrhage and L forearm fracture and was transferred to [facility] for further care. Trauma workup found SMA [...] COURSE: 04/08/2023: Fall from ht. Tx'd to [facility] from [facility] for serial abdominal exams and orthopedic consultation. [...] was informed of the risk of respiratory, RADAR SIGNAL PROCESSING ENGINEER depression and when medications are misused. Additionally, patient advised on addictiveness, safe storage and disposal of opioids. Explanation of the primary diagnosis, and secondary diagnoses where applicable, including test results, Discussion of any new medications and treatments, including expected benefits and potential major side effects, Explanation of previous treatments or medications that are discontinued, Disc (more content not included)... [facility] 04-11-2023 Plan of care note Problem: [...] will be met Outcome: Adequate for Discharge [facility] 04-11-2023 Miscellaneous Notes Problem: Routine Care: [...] documentation entered by: Luis Eduardo Buenrostro [facility], 27th edition, Copyright 2022 [facility], [facility] All Rights Reserved. [id number]:00 documented in this encounter [facility] 04-11-2023 Hospital course Narrative Images from the original note were not included. [facility] DIVISION OF TRAUMA SURGERY DISCHARGE SUMMARY [facility] [address] [place] [address] Eduarda Williamson Date of : 1990 32 [...] in by EMS as a transfer from [facility] following a fall from height. 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 -LOC -headstrike -AC/AP. [facility] imaging demonstrated a small R PTX, SMA artery dissection with active hemorrhage and L forearm fracture and was transferred to [facility] for further care. Trauma workup found SMA [...] Incidental Findings None on imaging, reviewed 04/10 HOSPITAL COURSE: 04/08/2023: Fall from ht. Tx'd to [facility] from [facility] for serial abdominal exams and orthopedic consultation. [...] was informed of the risk of respiratory, RADAR SIGNAL PROCESSING ENGINEER depression and when medications are misused. Additionally, [...] more urgent follow up Laura Caruso APRN, [facility] Surgical Critical Care Pager: [phone] *For urgent issues arising after 5PM during the week or on weekends/holiday, please page the trauma resident breast surgeon at [phone]. This patient's plan of care was discussed with Trauma Floor attending, Dr. Ibarra. documented in this encounter [facility] 04-10-2023 Note PHYSICAL THERAPY ACU TE [...] moving, I will definitely do this again. COMPENSATION AND BENEFITS ADMINISTRATOR Status: (I) Living / Driving/ working Home: [...] the plan. Marilu Givens, PT, MPT (B) [phone] *Secure Chat with Questions NA = Not Assessed, I = Independent, TN = Modified Independent, Sup = Supervised, Set up = Physical Assistance for Set-up Only, Min = Minimal Assistance, Mod = Moderate Assistance, Max = Max assistance; Dep = Dependent; AROM = Active Range of Motion; PROM = Passive Range of Motion; MMT = Manual Muscle Test; LE = Lower Extremity [facility] 04-10-2023 Consult note Associated Order (s): [...] moving, I will definitely do this again. COMPENSATION AND BENEFITS ADMINISTRATOR Status: (I) Living / Driving/ working Home: [...] the plan. Marilu Givens, PT, MPT (B) [phone] *Secure Chat with Questions NA = Not Assessed, I = Independent, TN = Modified Independent, Sup = Supervised, Set up = Physical Assistance for Set-up Only, Min = Minimal Assistance, Mod = Moderate Assistance, Max = Max assistance; Dep = Dependent; AROM = Active Range of Motion; PROM = Passive Range of Motion; MMT = Manual Muscle Test; LE = Lower Extremity [facility] 04-10-2023 Consult note Associated Order (s): [...] moving, I will definitely do this again. COMPENSATION AND BENEFITS ADMINISTRATOR Status: (I) Living / Driving/ working Home: [...] the plan. Marilu Givens, PT, MPT (B) [phone] *Secure Chat with Questions NA = Not Assessed, I = Independent, TN = Modified Independent, Sup = Supervised, Set [...] Prior Functional Status: Independent Living; was working COMPENSATION AND BENEFITS ADMINISTRATOR Assistance Available at Home: lives with mom/dad [...] Dep Max Mod Min CG CS DS TN I Set-Up Comment Feeding X X Assist [...] Dep Max Mod Min CG CS DS TN I Set-Up Comment Toilet Transfers X Bed [...] With Patients permission ordered no equipment via [employer] Order. If any questions contact [facility] DME Provider at [phone]. 04/10/2023 6 Clicks Daily Activity OT Help [...] Guard Assist/Supervision 4 - Non = Modified [place]/Independent ASSESSMENT: Patient is functionally appropriate for discharge home once medically cleared. No further Occupational Therapy Services reccommended at this time. PLAN: Eduarda Williamson will be d/c from acute OT services able to discuss the evaluation findings and treatment plan with the patient/family. Mairlu Chaves OTR/L Prefer [employer]) chat b. [phone] NA = Not Assessed, I = Independent, TN = Modified Independent, Sup = Supervised, Set up = Physical Assistance for Set-up Only, Min = Minimal Assistance, Mod = Moderate Assistance, Max = Max assistance; Dep = Dependent; AROM = Active Range of Motion;PROM=Passive Range of Motion; MMT = Manual Muscle Test; UB = Upper Body; LB = Lower Body documented in this encounter [facility] 04-10-2023 Plan of care note Problem: [...] will be achieved and maintained Outcome: Met [facility] 04-10-2023 Hospital Discharge instructions Laura Caruso APRN-MANAGER DELI - 04/10/2023 12:16 PM EST Discharge Instructions: [...] primary care physician or establishing care at [facility] if you do not already have [...] IMMEDIATELY. Alternatively, you may come into the [facility] Emergency Department IMMEDIATELY for an [...] not have a primary physician please call [phone] for guidance on finding a [facility] provider. If you have questions or concerns , if your condition worsens or you develop new symptoms please call the [facility] Line at [phone]. The following attachments cannot be sent through Care Everywhere.Forearm Fracture Discharge Instructions ([place])Cast Care ([place])Blunt Abdominal Trauma Discharge Instructions ([place])Radius Fracture Discharge Instructions ([place])documented in this encounter [facility] 04-10-2023 Note OCCUPATIONAL THERAPY INITIAL EVALUATION Patient seen from 1000 to 1013 on 5E unit for 13 minutes. 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 SUBJECTIVE: Patient Subjective: Knowing that I can move is a big relief Patient Goal: to return home Home Living Situation Prior Functional Status: Independent Living; was working COMPENSATION AND BENEFITS ADMINISTRATOR Assistance Available at Home: lives with mom/dad [...] Dep Max Mod Min CG CS DS TN I Set-Up Comment Feeding X X Assist [...] Dep Max Mod Min CG CS DS TN I Set-Up Comment Toilet Transfers X Bed [...] With Patients permission ordered no equipment via [employer] Order. If any questions contact [facility] DME Provider at [phone]. 04/10/2023 6 Clicks Daily Activity OT Help [...] Guard Assist/Supervision 4 - Non = Modified [place]/Independent ASSESSMENT: Patient is functionally appropriate for discharge home once medically cleared. No further Occupational Therapy Services reccommended at this time. PLAN: Eduarda Williamson will be d/c from acute OT services able to discuss the evaluation findings and treatment plan with the patient/family. Marilu Chaves OTR/L Prefer secure chat b. [phone] NA = Not Assessed, I = Independent, TN = Modified Independent, Sup = Supervised, Set up = Physical Assistance for Set-up Only, Min = Minimal Assistance, Mod = Moderate Assistance, Max = Max assistance; Dep = Dependent; AROM = Active Range of Motion;PROM=Passive Range of Motion; MMT = Manual Muscle Test; UB = Upper Body; LB = Lower Body [facility] 04-10-2023 Consult note Associated Order (s): [...] Prior Functional Status: Independent Living; was working COMPENSATION AND BENEFITS ADMINISTRATOR Assistance Available at Home: lives with mom/dad [...] Dep Max Mod Min CG CS DS TN I Set-Up Comment Feeding X X Assist [...] Dep Max Mod Min CG CS DS TN I Set-Up Comment Toilet Transfers X Bed [...] With Patients permission ordered no equipment via [employer] Order. If any questions contact [facility] DME Provider at [phone]. 04/10/2023 6 Clicks Daily Activity OT Help [...] Guard Assist/Supervision 4 - Non = Modified [place]/Independent ASSESSMENT: Patient is functionally appropriate for discharge home once medically cleared. No further Occupational Therapy Services reccommended at this time. PLAN: Eduarda Williamson will be d/c from acute OT services able to discuss the evaluation findings and treatment plan with the patient/family. Marilu Chaves OTR/L Prefer [facility] b. [phone] NA = Not Assessed, I = Independent, TN = Modified Independent, Sup = Supervised, Set up = Physical Assistance for Set-up Only, Min = Minimal Assistance, Mod = Moderate Assistance, Max = Max assistance; Dep = Dependent; AROM = Active Range of Motion;PROM=Passive Range of Motion; MMT = Manual Muscle Test; UB = Upper Body; LB = Lower Body [facility] 04-10-2023 History of Present illness Narrative Images from the original note were not included. GENERAL INFORMATION TRAUMA FLOOR - STAFF NOTE Patient Name: Eduarda Williamson Admission Date: 04/08/2023 Patient seen and examined on 04/10/23 INTERVAL HISTORY/EVENTS Background: Eduarda Williamson is a 32 year old male with no significant PMHx brought in by EMS as a transfer from [facility] following a fall from height. 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 -LOC -headstrike -AC/AP. [facility] imaging demonstrated a small R PTX, SMA artery dissection with active hemorrhage and L forearm fracture and was transferred to [facility] for further care. 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 CTA redemonstrates the focal hematoma in the RLQ with no evidence of active extravasation. No PTX on imaging. Mild increase in the amount of hemoperitoneum which abuts loops of lbowel. Admitted to trauma [facility] for serial abdominal exams. LUE splinted by ortho. Hospital Course: 04/08/2023: Fall from ht. Tx'd to [facility] from [facility] for serial abdominal exams and orthopedic consultation. 04/09: Abdominal exams benign. H/H stable. Admitted to Trauma [facility]. 24 Hour Events: This is my first [...] UOP: 2075ml +3x Stool: 0x, Last BM COMPENSATION AND BENEFITS ADMINISTRATOR on 2.9.24 ----- PHYSICAL EXAM ----- Vital [...] Continue pulmonary toilet, encourage IS - Respiratory Health Professor Protocol - Maintain O2 Sats > 92% [...] (Ismael) in 1-2 weeks Laura Caruso APRN, [facility] Tra[facility] Surgery Surgical Critical Care Pager: [phone] *For urgent issues arising after 5PM during the week or on weekends/holiday, please page the trauma resident breast surgeon at [phone]. This patient's plan of care was discussed with Trauma Floor attending, Dr. Ibarra. Division of Trauma, Surgical Critical Care, EGS Ticket to Roll Note . Provider Called Report To (Enter Provider Name, Service, and Time): Leandra Velázquez. Trauma Surgery. 1936, who is the RUP. The patient is transferring from ED, room # 48, to Trauma [address], room # [id number]. The patient was added to the Trauma Surgery list. Tiara Haji MD RUP = Receiving unit provider RNF = Regular nursing floor Serial abdominal exam at this time: soft non tender without guarding or rebound and states abdominal pain is improving Hiro Porter DO Serial abdominal exam at this time: soft non tender without guarding or rebound Hiro Porter DO [facility] Department of Surgery Division of Trauma Surgery, Acute Care Surgery, Critical Care, and [place] TRAUMA SURGERY HISTORY AND PHYSICAL Eduarda Williamson [id number] ASSESSMENT: Eduarda Williamson is a 32 year old male , with no significant PMH, who presents as a transfer from [facility] after a fall from 30ft from [employer]. INJURIES: 1. Stable 2.3 x 2.2 cm [...] shaft fracture PLAN: Admit to Trauma Surgery [facility] Unit Neuro: -No pain control at this [...] Kathryn Lee MD documented in this encounter [facility] 04-09-2023 Plan of care note Problem: [...] adult patient will be met Outcome: Progressing [facility] 04-08-2023 Note Formatting of this n ote [...] AdmissionCare documentation entered by: Luis Eduardo Buenrostro [facility] EXTENDED STAYS, 27th edition, Copyright 2022 [facility] [employer] All Rights Reserved. [id number]:32:11-05:00 [facility] Work Phone: 04-08-2023 History of Present illness Narrative CAT 2 Pt is a 32yo M presenting to ED via [facility] [employer] as transfer from [facility] s/p fall 30ft from ladder at work, L ulnar fracture, -thinners, -LOC. 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 Pt denies LOC. Pt was brought to [facility], where he was diagnosed with small R pneumothorax and L ulnar fracture. called pt's mother Lacho Williamson [phone] to provide update on pt status. Lacho is on the way to ED and will be visiting shortly. PLAN: Pending. Prudence R., ELECTRICIAN BUS, ROLLER BEARING INSPECTOR, MA ED Print Support Specialist documented in this encounter [facility] 04-08-2023 History and physical note Images from the original note were not included. [facility] Department of Surgery Division of Trauma Surgery, Acute Care Surgery, Critical Care, and [place] TRAUMA SURGERY HISTORY AND PHYSICAL Eduarda Williamson [id number] BASIC INJURY INFORMATION: Level of activation: Category [...] in by EMS as a transfer from [facility] after a fall from height. Reports he [...] drug use Living status: Home Primary language: [place] Functional status: Independent Impairments: None Assistive Devices [...] in by EMS as a transfer from [facility] after a fall from height. Reports he [...] Pau Pineda MD PGY1 Trauma Surgery Pager: [phone] Teaching Physician Note: I saw and evaluated [...] and Emergency General Surgery Department of Surgery [facility] Pager: [phone] [facility] Work Phone: 04-08-2023 History and physical note Images from the original note were not included. [facility] Department of Surgery Division of Trauma Surgery, Acute Care Surgery, Critical Care, and [place] TRAUMA SURGERY HISTORY AND PHYSICAL Eduarda Williamson [id number] BASIC INJURY INFORMATION: Level of activation: Category [...] in by EMS as a transfer from [facility] after a fall from height. Reports he [...] drug use Living status: Home Primary language: [place] Functional status: Independent Impairments: None Assistive Devices [...] in by EMS as a transfer from [facility] after a fall from height. Reports he [...] Pau Pineda MD PGY1 Trauma Surgery Pager: [phone] Teaching Physician Note: I saw and evaluated [...] and Emergency General Surgery Department of Surgery [facility] Pager: [phone] documented in this encounter [facility] 04-08-2023 Emergency department Triage note Prehospital Medications: TXA Dilaudid Zofran [facility] 04-08-2023 Emergency department Note Prehospital Medications: TXA Dilaudid Zofran 32 y/o M fall off telephone pole aprox 30 ft. Transfer from [facility] Images from the original note were not included. 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 Anticoagulation/Antiplatelet use: denies ---- [...] 18 Leukocytosis. No anemia or thrombocytopenia [HS] 8 BASIC METABOLIC PANEL(aka BMP) [CH8]: Glucose 106 Sodium 141 Potassium 3.9 Carbon Dioxide 26 Chloride 106 BUN 14 Creatinine 0.86 Calcium 9.4 Anion Gap 13 Estimated GFR 119 My independent interpretation after reviewing the currently available data: BMP without evidence of clinically significant electrolyte derangements, OSMIN or CKD. [HS] 181 Lactate: 1.6 wnl [HS] 1818 CTA C/A/P [...] per Dr. Lee (trauma attending) to trauma [facility] [HS] ED Course User Index [HS] Nona Rojas MD [facility] Medications given in the ED: Medications [...] questions. Nona Rojas MD EM PGY-2 Pager #[phone] Note has been documented by Libby Rolon [...] Jarrod Chandler MD documented in this encounter [facility] 04-08-2023 Emergency department Triage note 32 y/o M fall off telephone pole aprox 30 ft. Transfer from [facility] 04-08-2023 Physician Emergency department Note Images [...] Patient origin: Transfer from outside facility - [facility] The history is provided by the Patient and MLF. Eduarda Williamson is a 32 year old male presenting to the ED for fall from 30ft. Patient was working on [employer] pole when he fell and landed on his back on concrete, denies LOC. 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 MLF reports patient tachycardic, otherwise vss en route. 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 Anticoagulation/Antiplatelet use: denies ---- [...] ALT elevation [HS] 1816 Ethanol: <10 [HS] 181 Lipase: 8 wnl [HS] 1816 INR: 0.94 [...] CKD. [HS] 1817 Lactate: 1.6 wnl [HS] 1819 CTA C/A/P [...] per Dr. Lee (trauma attending) to trauma [facility] [HS] ED Course User Index [HS] Nona Rojas MD [facility] Medications given in the ED: Medications lactated ringers iv infusion ( Intravenous IV New Bag 04/08/23 192) acetaminophen (TYLENOL) tablet (1,000 mg Oral Given [...] Impression Diagnosis Comment Mesenteric hematoma, initial encounter [S36.602A] Fall from height of greater than 3 [...] questions. Nona Rojas MD EM PGY-2 Pager #[phone] Note has been documented by Libby Rolon [...] in the resident's note. Jarrod Chandler MD [facility] 11-08-2020 Note Infectious Disease COVID-19 COVID-19 [...] fight infection (immunocompromised). ? Live in a shelter or long-term care facility. ? Have a [...] managed at home with rest, fluids, and crwb-tgo-[id number] medicines. Treatment for a serious infection usually [...] Rest at h (more content not included)... [facility] Evaluation note No assessment inform ation available [facility] Work Phone: Evaluation note Diagnosis Closed [...] radius, initial encounter documented in this encounter [facility] Summary Purpose Family History No Family History [...] WK COMP WORK CONDITIONING Carmela Guevara MD [address] [place] [address] [place] [address] Occ [address] [place] [address] Referral ID Status Reason Start Date Expiration Date Visits Requested Visits Authorized [id number] Pending Review Consultatio n-[facility] 04/09/2023 04/09/2024 10 10 Scheduling Instructions SCHEDULING INSTRUCTIONS: Call [phone] to schedule your Occupational Therapy appointment. We offer therapy services at many convenient locations. Please arrive 20 minutes prior to your appointment to register. It is important to bring your insurance cards and a personal identification card to your appointment. If you are unable to keep your appointment, cancel or reschedule by calling [phone] or via [employer]. Thank you! Question Answer Is this for [...] left radius, initial encounter Carmela Guevara MD [address] [place] [address] [place] [address] S PRE ADMISSION TESTING [address] [place] [address] Referral ID Status Reason Start Date Expiration Date V isits Requested Visits Authorized [id number] Authorized 04/09/2023 04/09/2024 1 1 Scheduling Instructions Your surgical team will reach out to you to schedule a pre-admission testing appointment. Question Answer Reason for consult? Recommended PAT Risk Score Specialty Diagnoses / Procedures Referred By Stephanie cowart Referred To Contact Radiology Diagnoses Closed displaced comminuted fracture of shaft of left radius, initial encounter Procedures XR FOREARM LEFT 2 VIEWS Carmela Guevara MD [address] [place] [address] [place] [address] [facility] [email or web address]] DIAGNOSTIC RADIOLOGY [address] [place] [address] [place] [address] Referral ID Status Reason Start Date Expiration Date V isits Requested Visits Authorized [id number] Authorized 06/14/2023 06/13/2024 1 1 Specialty Diagnoses / Procedures Referred By Contkrystin t Referred To Contact Radiology Diagnoses Aftercare following surgery Closed displaced comminuted fracture of shaft of left radius, initial encounter Procedures XR FOREARM LEFT 2 VIEWS Carmela Guevara MD [address] [place] [address] [place] [address] [facility] [[email or web address]] DIAGNOSTIC RADIOLOGY [address] [place] [address] [place] [id number] Referral ID Status Reason Start Date Expiration Date Visits Re quested Visits Authorized [id number] Closed 04/28/2023 04/27/2024 1 1 Additional Source Comments (unrecognized sect ion and content) No Status Records FoundNo Status Records FoundNo Status Records FoundNo Status Records FoundNo Status Records Found INFORMATION SOURCE (unrecogn ized section and content) DATE CREATED AUTHOR 05/09/2021 [facility] DATE CREATED AUTHOR AUTHOR'S ORGANIZ ATION 07/10/2023 [facility] DATE CREATED AUTHOR AUTHOR'S ORGANIZ ATION 09/18/2023 [facility] DATE CREATED AUTHOR AUTHOR'S ORGANIZ ATION 10/23/2023 [facility] DATE CREATED AUTHOR AUTHOR'S ORGANIZ ATION 11/23/2023 [facility] Care Teams (unrecognized sec tion and content) [...] April 08, 2023 End: April 08, 2023 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 Relationship Specialty Start Date End Date Carmela Guevara MD [address] [place] [address] [place] [address] Physician Orthopaedic Hand Service 05/01/23 Laura Victoria OTR/L [address] [place] [address] [place] [address] Occupational Therapist Occupational Therapy 06/05/23 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 Relationship Specialty Start Date End Date Carmela Guevara MD [address] [place] [address] [place] [address] Physician Orthopaedic Hand Service 05/01/23 Laura Victoria OTR/L [address] [place] [address] [place] [address] Occupational Therapist Occupational Therapy 06/05/23 Team Status: [...] with mesenteric artery dissection Procedures n/a [facility] [address] [place] [id number] Phone: [phone] [facility] [address] [place] [id number] Phone: [phone] Referral ID Status Reason Start Date Expiration Date Visits Re quested Visits Authorized [id number] 3 3 Specialty Diagnoses / Procedures Referred By Contac t Referred To Contact Ambulatory Surgery Diagnoses Closed displaced comminuted fracture of shaft of left radius, initial encounter Closed displaced comminuted fracture of shaft of left radius, initial encounter [S52.352A] Procedures REDUCTION, OPEN, RADIUS Carmela Guevara MD [address] [place] [address] [place] [address] [facility] [address] [place] [address] Phone: [phone] Referral ID Status Reason Start Date Expiration Date Visits Re quested Visits Authorized [id number] 3 3 Reason Comments Joint Pain Arm [...] FOREARM LEFT 2 VIEWS Carmela Guevara MD [address] [place] [address] [place] [address] [facility] [[email or web address]] DIAGNOSTIC RADIOLOGY [address] [place] [address] [place] [address] Referral ID Status Reason Start Date Expiration Date Visits Re quested Visits Authorized [id number] Closed 04/28/2023 04/27/2024 1 1 Scheduled Active and Recently Administ ered Medications (unrecognized section and content) Medication Order 04/09/2023 04/10/2023 04/11/2023 acetaminophen (TYLENOL) tablet 1,000 mg, Oral, Every 6 hours, First dose on Marlys 04/08/23 at 2003, Until Discontinued 020 (Hold/Not Given - Provider: [...] PRN, Starting on Wed04/09/23 at 1211, Until Wed04/10/23 at 1011, Severe Pain (pain score 7,8,9,10) 1328 (Given - Provider: Madyson Nicolas RN)1750 (Given - Provider: Yolanda Laboy, ANTONINO)2155 (Given - Provider: Alejandra Rboerts RN) 0159 (Given - Provider: Alejandra Roberts [...] BE BASED ON THE PRIMARY CLINICAL RECORDS. [employer] [facility]. provides no warranty or guarantee of the accuracy or completeness of information in this document.
--- NOTE | 2023-12-20 17:59 | P.CN_ITS ---
Consult Note: HPI Data of Consult Patient: known to practice within the last 3 years Consult date: 12/20/23 Requesting Physician: Alin Khanna MD Primary Care Provider: Tito Whitney MD Family Provider: NREQUEST Consult Narrative Reason for consult: neck, bilateral arm pain L>R Narrative: 33yom who presents for assessment. continues to have pain into left upper extremity. was denied stellate ganglion block by [facility]. physician of record denied crps diagnosis. mri of cervical spine was obtained, which showed stenosis at c4- 5. emg showed acute c5 radiculopathy. has continued in a series of provider directed home exercises for >6 weeks, without benefit. has tried topicals, nsaids, without benefit. on lyrica 75mg qday. cc:: CC: Alin Khanna MD Review of Systems ROS Status of ROS 10 or more systems reviewed and unremark able except as noted in history and below PFSH PFSH Social History Smoking status: Never smoker Meds Home Medications and Allergies Home Medications ?Medication ?Instructions ?Recorded ?Confirmed ?Type naproxen 500 mg tablet 500 mg PO DAILY 12/20/23 12/20/23 History pregabalin 75 mg capsule (Lyrica) 75 mg PO DAILY 12/20/23 12/20/23 History Allergies Allergy/AdvReac Type Severity Reaction Status Date / Time No Known Drug Allergies Allergy Verified 03/01/23 18:37 Exam Narrative Exam Narrative: Psych-alert and oriented x 3.? Attentive and appropriate, constitutionally normal, displays normal mood and affect per situation.? There are no obvious deficits in memory, reasoning, or intellect.? Skin-no obvious rashes, bruising, or erythema noted to the patient's area of pain.? Extremities-upper extremities are warm with minimal edema and palpable pulses. Cervical- tenderness to palpation noted in the cervical spine and paraspinal musculature.? Pain is elicited with flexion, extension, and lateral rotation of the cervical spine.? Range of motion is diminished due to pain. Facet loading maneuvers are positive. Strength-unremarkable and within normal limits Sensory-no notable sensory deficits in the bilateral upper extremities to touch or pinprick with the exception to decreased sensation to the bilateral C4, 5, 6 dermatomal distribution.? Coordination remains intact.? Gait remains non-antalgic. Assessment and Plan Assessment and Plan (1) Closed fracture of shaft of left radius: Qualifiers: Encounter type: initial encounter Fracture morphology: unspecified fracture morphology Qualified Code(s): S52.302A - Unspecified fracture of shaft of left radius, initial encounter for closed fracture Plan 33yom who presents for assessment. continues to have neck and bilateral upper extremity pain L>R. cervical mri and emg were reviewed, as noted. given persistence of symptoms and testing findings, prudent to attempt bilateral c4-5 tfesi under fluoroscopic guidance. he is in agreement. meds reviewed. will increase lyrica to 75mg tid. follow up after procedure.
== END 2023-12-20 13:15 | disposition home or self-care (01) ==
PROVIDERS: PCP Family Medicine; Visit Provider Anesthesiology
DX: S52.302A Unspecified fracture of shaft of left radius, initial encounter for closed fracture (principal)
CPT/HCPCS: G0463